=== PATIENT | female | born 1955 | race Caucasian/White ===

== ENCOUNTER 2021-04-27 19:17 | Emergency (ER) | payer OTHER ==
--- NOTE | 2021-04-27 21:17 | RAD REPORT ---
EXAM DESCRIPTION: CT - Head C Spine Mpr Wo Con - 04/27/2021 9:03 pm CLINICAL HISTORY: Head and neck injury status post fall. Head and neck pain COMPARISON: 2007 TECHNIQUE: Computed axial tomography of the head and cervical spine was obtained. Sagittal and coronal reconstruction was performed. All CT scans are performed using dose optimization technique as appropriate and may include automated exposure control or mA/KV adjustment according to patient size. FINDINGS: An intracranial bleed is not seen. A 3 centimeter low-density area right cerebellum. The ventricles are normal in caliber. An extra-axial fluid collection is not noted.Fluid within the v isualized sinuses and mastoids is not seen A cervical fracture is not visualized. No dislocation is noted. Spondylosis C5-6 C6-7 results in mode rate central spinal stenosis IMPRESSION: 3 centimeter low-density area within the right cerebellum may represent artifact or path ology such as infarction of indeterminate age. This should be correlated clinically. MRI of the brain may be helpful for further evaluation A cervical fracture is not visualized. Spondylosis involving the cervical spine resulting in moderate central spinal stenosis
--- NOTE | 2021-04-27 21:40 | RAD REPORT ---
EXAM DESCRIPTION: RAD - Forearm Left - 04/27/2021 9:31 pm CLINICAL HISTORY: Left forearm pain status post injury FINDINGS: No fracture is seen
--- NOTE | 2021-04-27 21:41 | RAD REPORT ---
EXAM DESCRIPTION: RAD - Shoulder Left 2 View - 04/27/2021 9:31 pm CLINICAL HISTORY: Left shoulder pain status post fall FINDINGS: No fracture or dislocation is seen. Osteoporosis
--- NOTE | 2021-04-27 21:41 | RAD REPORT ---
EXAM DESCRIPTION: RAD - Humerus Left - 04/27/2021 9:31 pm CLINICAL HISTORY: Left arm pain status post fall FINDINGS: No fracture is seen
--- NOTE | 2021-04-27 21:43 | RAD REPORT ---
EXAM DESCRIPTION: RAD -Hand Left 3 View - 04/27/2021 9:31 pm CLINICAL HISTORY: Left hand pain status post injury FINDINGS: No fracture or dislocation is seen.
--- NOTE | 2021-04-27 21:52 | RAD REPORT ---
EXAM DESCRIPTION: RAD - Pelvis - 04/27/2021 9:31 pm CLINICAL HISTORY: Pelvic pain status post injury FINDINGS: No fracture or dislocation is seen. Osteoporosis If the patient continues to have symptoms to suggest an occult fracture then MRI or CT would be recom mended
--- NOTE | 2021-04-27 21:53 | RAD REPORT ---
EXAM DESCRIPTION: RAD - Hip Left 2 View - 04/27/2021 9:31 pm CLINICAL HISTORY: Left hip pain status post injury FINDINGS: No fracture or dislocation seen. Osteoporosis If the patient continues to have symptoms to suggest an occult fracture then MRI or CT would be recom mended
--- NOTE | 2021-04-27 23:20 | ER ---
Nurse's Notes [facility] Name: Herminia Truong Age: 65 yrs Sex: Female : 1955 Arrival Date: 04/27/2021 Time: 19:21 Bed 18 Private MD: Diagnosis: Fall, Mechanical;Abrasions, Left Upper Extremity;Contusions Presentation: 04/27 20:01 Chief complaint: Patient states: Teeth extraction today, took hydrocodone when she got sj1 home and fell while walking the dog, reports hitting head, possible LOC, c/o headache, left hip, left leg, and left arm pain. Denies thinners. Care prior to arrival: None. Mechanism of Injury: Fall GLF. 20:01 Acuity: VELVET 2 sj1 20:01 Method Of Arrival: Wheelchair sj1 20:05 Coronavirus screen: Vaccine status: Patient reports receiving the 1st dose of the Covid sj1 vaccine. Ebola Screen: No symptoms or risks identified at this time. Initial Sepsis Screen: Does the patient meet any 2 criteria? No. Patient's initial sepsis screen is negative. Does the patient have a suspected source of infection? No. Patient's initial sepsis screen is negative. Risk Assessment: Do you want to hurt yourself or someone else? Patient reports no desire to harm self or others. Onset of symptoms was April 27, 2021 at 18:30. Triage Assessment: 20:05 General: Appears in no apparent distress. Behavior is calm, cooperative, appropriate sj1 for age. Pain: Complains of pain in LEFT ARM, HIP, LEG PAIN, AND HEADACHE. Historical: - Allergies: 20:06 Vancomycin; sj1 - PMHx: 20:06 Diabetes - IDDM; Hypertension; Hyperlipidemia; sj1 - Immunization history: Last tetanus immunization: unknown. - Social history:: Smoking status: Patient denies any tobacco usage or history of. Screenin:32 Abuse screen: Denies threats or abuse. Nutritional screening: No deficits noted. kc4 Tuberculosis screening: No symptoms or risk factors identified. Never had TB. Possible symptoms: None Risk factors: None. Fall Risk None identified. Fall in past 12 months (25 points). Secondary diagnosis (15 points) IV access (20 points). Ambulatory Aid- None/Bed Rest/Nurse Assist (0 pts). Gait- Impaired (20 pts.). Mental Status- Oriented to own ability (0 pts). Total Burdick Fall Scale indicates High Risk Score (45 or more points). Fall prevention measures have been instituted. Side Rails Up X 2. Primary Survey: 20:01 NO uncontrolled hemorrhage observed. A: The patient is alert. Airway: patent. sj1 Breathing/Chest: Respiratory pattern: regular. Circulation: Pulses:. Disability Alert. Exposure/Environment:. 23:43 Reassessment Breathing/Chest Respiratory pattern Regular Respiratory effort Spontaneous kc4 Breath sounds Clear Chest inspection Symmetrical. Assessment: 20:01 General: Appears in no apparent distress. Behavior is calm, cooperative, appropriate sj1 for age. Pain: Complains of pain in LEFT ARM, HIP, AND LEG. Neuro: Reports headache. 23:32 General: Appears in no apparent distress. Behavior is calm, cooperative, appropriate kc4 for age. Pain: Complains of pain in left Hip Pain does not radiate. Pain radiates to left hip Pain currently is 0 out of 10 on a pain scale. at worst was 8 out of 10 on a pain scale. level that patient reports is acceptable is 0 out of 10 on a pain scale. Quality of pain is described as burning, aching, pressure, Pain began suddenly, Is continuous, Alleviated by medications, rest, repositioning, cold application, relaxation, Aggravated by increased activity, repositioning, weight bearing, Noted to be quiet/stoic, Also complains of Current management. Neuro: No deficits noted. Reports headache numbness. Cardiovascular: No deficits noted. Respiratory: No deficits noted. GI: No deficits noted. : No deficits noted. EENT: No deficits noted. No signs and/or symptoms were reported regarding the EENT system. Derm: No signs and/or symptoms reported regarding the dermatologic system. Musculoskeletal: No deficits noted. Tenderness. Vital Signs: 20:04 BP 134 / 85; Pulse 104; Resp 19; Temp 98; Pulse Ox 100% ; Weight 69.85 kg (R); Height 5 sj1 ft. 1 in. (154.94 cm); Pain 9/10; 21:15 BP 128 / 80; Pulse 88; Resp 18; Temp 98.1; Pulse Ox 100% on R/A; Pain 8/10; kc4 23:32 BP 118 / 72; Pulse 80; Resp 18; Temp 98.8(O); Pulse Ox 99% on R/A; Pain 2/10; kc4 20:04 Body Mass Index 29.10 (69.85 kg, 154.94 cm) sj1 Dada Coma Score: 20:04 Eye Response: spontaneous(4). Verbal Response: oriented(5). Motor Response: obeys sj1 commands(6). Total: 15. 23:32 Eye Response: spontaneous(4). Verbal Response: oriented(5). Motor Response: obeys kc4 commands(6). Total: 15. Trauma Score (Adult): 20:04 Eye Response: spontaneous(1); Verbal Response: oriented(1); Motor Response: obeys sj1 commands(2); Systolic BP: > 89 mm Hg(4); Respiratory Rate: 10 to 29 per min(4); Dada Score: 15; Trauma Score: 12 ED Course: 19:21 Patient arrived in ED. ja2 20:03 Triage completed. sj1 20:25 Patricio Kaminski MD is Attending Physician. 7 20:49 Lacey Sands is Primary Nurse. kc4 21:03 CT Head C Spine In Process Unspecified. EDMS 21:31 Shoulder Left (2 View) XRAY In Process Unspecified. EDMS 21:31 Humerus Left XRAY In Process Unspecified. EDMS 21:31 Forearm Left XRAY In Process Unspecified. EDMS 21:31 Hand Left 3 View XRAY In Process Unspecified. EDMS 21:31 Hip Left 2 View XRAY In Process Unspecified. EDMS 21:31 Pelvis XRAY In Process Unspecified. EDMS 23:17 Andrea Causey MD is Referral Physician. [facility] 23:41 Arm band placed on right wrist. kc4 23:42 No provider procedures requiring assistance completed. Patient did not have IV access kc4 during this emergency room visit. 23:43 Patient has correct armband on for positive identification. Fall risk band placed. kc4 Placed in gown. Bed in low position. Call light in reach. Side rails up X 1. 23:44 Patient maintains SpO2 saturation greater than 95% on room air. 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 Exp: kc4 11/20/2022. Lot #: [id number]. } Route: IM; Site: left deltoid; Outcome: 23:19 Discharge ordered by . shanelle 23:42 Discharged to home via wheelchair, with family. 4 23:42 Condition: improved 23:42 Discharge instructions given to patient, family, Instructed on discharge instructions, follow up and referral plans. Demonstrated understanding of instructions, follow-up care, medications. 23:44 Patient's length of stay was not longer than 2 hours. kc4 23:54 Patient left the ED. em Signatures: Dispatcher [employer] Marko Moody, RN RN em Patricio Kaminski MD MD 7 Lacey Sands 4 Cortney Ferro Sade, RN RN sj1
--- NOTE | 2021-04-27 23:20 | EDPHYS ---
Physician Documentation [facility] Name: Herminia Truong Age: 65 yrs Sex: Female : 1955 Arrival Date: 04/27/2021 Time: 19:21 Bed 18 Private MD: ED Physician Patricio Kaminski HPI: 04/27 20:25 This 65 yrs old Female presents to ER via Wheelchair with complaints of Fall mh7 Injury. 20:25 Details of fall: The patient fell from an upright position, while walking. Onset: The mh7 symptoms/episode began/occurred just prior to arrival, today. Associated injuries: The patient sustained injury to the head, pain, tenderness, left arm, painful injury, Left hip, painful injury. Severity of symptoms: At their worst the symptoms were moderate, earlier today, in the emergency department the symptoms have improved, moderately. Patient states that she was walking her dog when she got pulled by the dog and tripped and fell. She complains of head pain, left shoulder pain, left arm pain, left hip pain. States that she felt dazed after hitting her head but does not believe she had LOC. She denies any other symptoms or complaints.. Historical: - Allergies: 20:06 Vancomycin; sj1 - PMHx: 20:06 Diabetes - IDDM; Hypertension; Hyperlipidemia; sj1 - Immunization history: Last tetanus immunization: unknown. - Social history:: Smoking status: Patient denies any tobacco usage or history of. ROS: 20:25 Constitutional: Negative for fever, chills, and weight loss, Eyes: Negative for injury, mh7 pain, redness, and discharge, ENT: Negative for injury, pain, and discharge, Neck: Negative for injury, pain, and swelling, Cardiovascular: Negative for chest pain, palpitations, and edema, Respiratory: Negative for shortness of breath, cough, wheezing, and pleuritic chest pain, Abdomen/GI: Negative for abdominal pain, nausea, vomiting, diarrhea, and constipation, Back: Negative for injury and pain, : Negative for injury, bleeding, discharge, and swelling. 20:25 Psych: Negative for depression, anxiety, suicide ideation, homicidal ideation, and hallucinations, Allergy/Immunology: Negative for hives, rash, and allergies, Endocrine: Negative for neck swelling, polydipsia, polyuria, polyphagia, and marked weight changes, Hematologic/Lymphatic: Negative for swollen nodes, abnormal bleeding, and unusual bruising. 20:25 Neuro: Negative for altered mental status, dizziness, gait disturbance, hearing loss, loss of consciousness, numbness, seizure activity, speech changes, syncope, near syncope, tingling, tinnitus, tremor, visual changes, weakness. Exam: 20:25 Constitutional: This is a well developed, well nourished patient who is awake, alert, mh7 and in no acute distress. 20:25 Eyes: Pupils equal round and reactive to light, extra-ocular motions intact. Lids and lashes normal. Conjunctiva and sclera are non-icteric and not injected. Cornea within normal limits. Periorbital areas with no swelling, redness, or edema. ENT: Nares patent. No nasal discharge, no septal abnormalities noted. Tympanic membranes are normal and external auditory canals are clear. Oropharynx with no redness, swelling, or masses, exudates, or evidence of obstruction, uvula midline. Mucous membranes moist. Neck: Trachea midline, no thyromegaly or masses palpated, and no cervical lymphadenopathy. Supple, full range of motion without nuchal rigidity, or vertebral point tenderness. No Meningismus. Chest/axilla: Normal chest wall appearance and motion. Nontender with no deformity. No lesions are appreciated. Cardiovascular: Regular rate and rhythm with a normal S1 and S2. No gallops, murmurs, or rubs. Normal PMI, no JVD. No pulse deficits. Respiratory: Lungs have equal breath sounds bilaterally, clear to auscultation and percussion. No rales, rhonchi or wheezes noted. No increased work of breathing, no retractions or nasal flaring. Abdomen/GI: Soft, non-tender, with normal bowel sounds. No distension or tympany. No guarding or rebound. No evidence of tenderness throughout. Back: No spinal tenderness. No costovertebral tenderness. Full range of motion. 20:25 Neuro: Awake and alert, GCS 15, oriented to person, place, time, and situation. Cranial nerves II-XII grossly intact. Motor strength 5/5 in all extremities. Sensory grossly intact. Cerebellar exam normal. Normal gait. Psych: Awake, alert, with orientation to person, place and time. Behavior, mood, and affect are within normal limits. 20:25 Head/face: Noted is tenderness, that is moderate, of the Left scalp. 20:25 Musculoskeletal/extremity: Extremities: noted in the Left shoulder, left arm, left forearm, left hand: pain, tenderness, noted in the Left hip: pain, tenderness, ROM: limited active range of motion due to pain, in the left arm and left hip, limited passive range of motion due to pain, in the left arm and left hip, Circulation is intact in all extremities. Sensation intact. Compartment Syndrome exam of affected extremity: is normal. no numbness, no tingling, no sensation deficit, no palor, no weak pulses, Joints: the left shoulder and left knee displays painful range of motion, tenderness, Weight bearing: able to fully bear weight, Tendon exam: specific tendon testing normal through active and passive range of motion 20:25 Skin: injury, abrasion(s), small abrasion noted, of the left arm. Vital Signs: 20:04 BP 134 / 85; Pulse 104; Resp 19; Temp 98; Pulse Ox 100% ; Weight 69.85 kg (R); Height 5 sj1 ft. 1 in. (154.94 cm); Pain 9/10; 21:15 BP 128 / 80; Pulse 88; Resp 18; Temp 98.1; Pulse Ox 100% on R/A; Pain 8/10; kc4 23:32 BP 118 / 72; Pulse 80; Resp 18; Temp 98.8(O); Pulse Ox 99% on R/A; Pain 2/10; kc4 20:04 Body Mass Index 29.10 (69.85 kg, 154.94 cm) sj1 Curlew Coma Score: 20:04 Eye Response: spontaneous(4). Verbal Response: oriented(5). Motor Response: obeys sj1 commands(6). Total: 15. 23:32 Eye Response: spontaneous(4). Verbal Response: oriented(5). Motor Response: obeys kc4 commands(6). Total: 15. Trauma Score (Adult): 20:04 Eye Response: spontaneous(1); Verbal Response: oriented(1); Motor Response: obeys sj1 commands(2); Systolic BP: > 89 mm Hg(4); Respiratory Rate: 10 to 29 per min(4); Dada Score: 15; Trauma Score: 12 MDM: 23:13 Differential diagnosis: abrasion, closed head injury, contusion, fracture. Data 7 reviewed: vital signs, nurses notes, radiologic studies, CT scan, plain films. Data interpreted: Pulse oximetry: on room air is 100 %. Interpretation: normal. Counseling: I had a detailed discussion with the patient and/or guardian regarding: the historical points, exam findings, and any diagnostic results supporting the discharge/admit diagnosis, lab results, radiology results, to return to the emergency department if symptoms worsen or persist or if there are any questions or concerns that arise at home. Response to treatment: the patient's symptoms have markedly improved after treatment. ED course: Well-appearing, no acute distress, vital signs stable, no focal neurological deficits. Patient is ambulating without any difficulty or complaints of pain. Discussed test results including 3 cm low-density area seen in the right cerebellum. Offered further studies including possible MRI. Patient denies any stroke symptoms now or in the past and declined test. She will follow up with her primary doctor about this finding. She was informed that she may return to the ED for any concerns.. 23:19 Patient medically screened. 7 04/27 20:41 Order name: CT Head C Spine; Complete Time: 22:35 7 04/27 20:41 Order name: Shoulder Left (2 View) XRAY; Complete Time: 22:35 7 04/27 20:41 Order name: Humerus Left XRAY; Complete Time: 22:35 7 04/27 20:41 Order name: Forearm Left XRAY; Complete Time: 22:35 7 04/27 20:41 Order name: Hand Left 3 View XRAY; Complete Time: 22:35 7 04/27 20:41 Order name: Hip Left 2 View XRAY; Complete Time: 22:35 7 04/27 20:41 Order name: Pelvis XRAY; Complete Time: 22:35 mh7 Administered Medications: 23:20 Drug: Tetanus-Diphtheria Toxoid Adult 0.5 ml {Ins[employer]: [employer]. Exp: kc4 11/20/2022. Lot #: [id number]. } Route: IM; Site: left deltoid; Disposition Summary: 04/27/21 23:19 Discharge Ordered Location: Home [facility] Problem: [facility] Symptoms: have improved [facility] Condition: Stable [facility] Diagnosis - Fall, Mechanical 7 - Abrasions, Left Upper Extremity mh7 - Contusions [facility] Followup: 7 - With: Private Physician - When: 1 - 2 days - Reason: Worsening of condition, Further diagnostic work-up, Recheck today's complaints, Continuance of care, Re-evaluation by your physician Followup: [facility] - With: Andrea Causey MD - When: As needed - Reason: Further diagnostic work-up Discharge Instructions: - Discharge Summary Sheet [facility] - Musculoskeletal Pain 7 - Contusion, [id number] [facility] - Fall Prevention in the Home, Adult, [id number] 7 - Facial or Scalp Contusion, [id number] [facility] Forms: - Medication Reconciliation Form [facility] - Thank You Letter [facility] - Antibiotic Education [facility] - Prescription Opioid Use [facility] Signatures: Dispatcher [employer] Patricio Dubois MD MD 7 Lacey Sands kc4 Lakshmi Banuelos RN RN sj1 Corrections: (The following items were deleted from the chart) 20:55 20:42 Wrist Left 3 View+RAD.RAD.BRZ ordered. EDMS MAE
[2021-04-27] MEDS ORDERED: TETANUS & DIPHTHERIA TOX,ADULT 0.5 ML VIAL ONE (23:44)
[2021-04-28 00:21] VITALS: BP 118/72; TEMP 98.8; O2SAT 99
== END 2021-04-27 23:54 | disposition home or self-care (01) ==
LOC: ER 19:17
DX: S40.812A Abrasion of left upper arm, initial encounter (principal); W01.0XXA Fall on same level from slipping, tripping and stumbling without subsequent striking against object, initial encounter; Y93.K1 Activity, walking an animal; I10 Essential (primary) hypertension; E11.9 Type 2 diabetes mellitus without complications; Z23 Encounter for immunization; Z88.3 Allergy status to other anti-infective agents
CPT/HCPCS: 70450; 72125; 72170; 90471; 90714; 99284

== ENCOUNTER 2021-06-14 15:53 | Emergency (ER) | payer OTHER ==
--- OUTSIDE RECORDS SUMMARY | 2021-06-14 15:57 | XMS REPORT | Continuity of Care Document ---
:1955 Author Organization [facility] t Address [address] [place] [address] Care Team Providers Name Role Phone Edith GREWAL Primary Care Physician Unavailable LILLIE COCHRAN Attending Clinician Unavailable Vitor STEWART, Gene Attending Clinician Sony STEWART Attending Clinician Doctor Unassigned, Name Attending Clinician Unavailable Eliseo STEWART, Kiana Attending Clinician Payers Payer Name Policy Type Policy Number Effective Date Expiration Date S lucy MEDICARE PART A [id number] 2009 \\T\\ B 00:00:00 DIONICIO [id number] 2021 00:00:00 Problems Condition Condition Condition Status Onset Resolution Last Treating Co mments Source Name Details Category Date Date Treatment Clinician Date Dietary Dietary Disease Active Univers B12 B12 9-13 [place] Mixed Mixed Disease Active Univers hyperlipid hyperlipid 6-05 it y of emia emia 00:00: [place] 00 Medical Branch 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 1-19 ity of mellitus mellitus 00:00: [place] with with 00 Medical diabetic diabetic Branch polyneurop polyneurop athy athy Depression Depression Disease Active 2014-07 U nivers 0-12 ity of 00:00: [place] 00 Medical Branch Sinusitis Sinusitis Disease Active Uni vers 7-16 ity of 00:00: [place] 00 Medical Branch Diabetic Diabetic Disease Active Unive rs arthropath arthropath 3-15 it y of y y 00:00: [place] 00 Medical Branch Adhesive Adhesive Disease Active Unive rs capsulitis capsulitis 3-15 it y of of of 00:00: [place] shoulder shoulder 00 Medica l Branch Osteoarthr Osteoarthr Disease Active U nivers itis, itis, 3-15 ity of multiple multiple 00:00: [place] sites sites 00 Medical Branch Chronic Chronic Disease Active Univers pain pain 3-15 ity of syndrome syndrome 00:00: [place] 00 Medical Branch Arthritis Arthritis Disease Active Uni vers 1-15 ity of 00:00: [place] 00 Medical Branch Allergic Allergic Disease Active Unive rs rhinitis rhinitis 1-15 ity of 00:00: [place] 00 Medical Branch Essential Essential Disease Active Uni vers hypertensi hypertensi 3-28 it y of on, benign on, benign [place] Vitamin D Vitamin D Disease Active Overview: Univers deficiency deficiency 3-28 Formattin ity of 00:00: g of this 00 note Medical might be Branch different from the original. 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 Univers in ty to See comments 2-30 ity of adverse 00:00: [place] reaction 00 Medical s Branch Social History Social Habit Start Date Stop Date Quantity Comments Source Sex Assigned At [facility] of Medicine History [facility] o f Alcohol Frequency [facility] edical Branch History [facility] o f Alcohol Std Drinks [place] [facility] History [facility] o f Alcohol Binge [place] Medic al Branch Exposure to Not sure University of SARS-CoV-2 (event) [place] [facility] [place] Alcohol intake 2021-05-25 2021-05-25 Current drinker Unive rsity of 00:00:00 00:00:00 of alcohol [place] Medical (finding) Branch Alcohol Comment 2012-09-21 2012-09-21 occasional Universit y of 00:00:00 00:00:00 [facility] Cigarettes smoked 2012-07-24 2012-07-24 Univers ity of current (pack per 00:00:00 00:00:00 [facility] ) - Reported Branch Tobacco use and 2012-07-24 2012-07-24 Never used Universit y of exposure 00:00:00 00:00:00 [facility] History of tobacco 2005-07-10 Current smoker [facility] of use 00:00:00 Medicine Smoking Status Start Date Stop Date Source Former smoker 2020-01-29 00:00:00 2020-01-29 00:00:00 [facility] Medications Ordered Filled Start Stop Current Ordering Indication Dosage Frequency Signature Comments Components Source Medication Medication Date Date Medication? Clinician (SIG) Name Name Dexlansopra 2020-07 Yes Take by Un nico zole -02 mouth. ity of (DEXILANT) 13:56: [place] 60 mg 05 Medical capsule Branch VITAMIN C 2020-07 Yes 1 daily Unive rs 500 MG ORAL - ity of TAB 13:56: [address] MULTI-VITAM 2020-07 Yes 1 daily Uni vers IN ORAL 07-11 ity of 13:56: [address] ASPIRIN 81 2020-07 Yes once daily U nivers MG ORAL 02 ity of CHEW 13:56: [address] cholecalcif 2020-07 Yes 1000U Take 1,000 Univers christina, 1-02 Units by ity of vitamin D3, 13:56: mouth [place] (VITAMIN 05 daily. Medical D3) 1,000 Branch unit tablet CYANOCOBALA 2020-07 Yes Take by Un nico MIN, 1-02 mouth ity of VITAMIN 13:56: daily. [place] B-12, 05 Medical (VITAMIN Branch B-12 ORAL) Dexlansopra 2020-07 Yes Take by Un nico zole 1-02 mouth. ity of (DEXILANT) 13:56: [place] 60 mg 05 Medical capsule Branch VITAMIN C 2020-07 Yes 1 daily Unive rs 500 MG ORAL 1-02 ity of TAB 13:56: [address] MULTI-VITAM 2020-07 Yes 1 daily Uni vers IN ORAL -02 ity of 13:56: [place] [address] Medical Branch ASPIRIN 81 2020-07 Yes once daily U nivers MG ORAL 07-11 ity of CHEW 13:56: [address] Branch cholecalcif 2020-07 Yes 1000U Take 1,000 Univers christina, 02 Units by ity of vitamin D3, 13:56: mouth [place] (VITAMIN 05 daily. Medical D3) 1,000 Branch unit tablet CYANOCOBALA 2020-07 Yes Take by Un nico MIN, 02 mouth ity of VITAMIN 13:56: daily. [place] B-12, 05 Medical (VITAMIN Branch B-12 ORAL) methocarbam 2020-07 Yes [id number] 500mg Take 1 Univers oL 1-02 tablet by ity of (ROBAXIN) 00:00: mouth 2 [place] 500 mg 00 (two) Medical tablet times Branch daily. methocarbam 2020-07 Yes [id number] 500mg Take 1 Univers oL 1-02 tablet by ity of (ROBAXIN) 00:00: mouth 2 [place] 500 mg 00 (two) Medical tablet times Branch daily. insulin Yes [id number] inject Univ ers lispro 9-13 under the ity of (HUMALOG 00:00: skin 3 [place] KWIKPEN 00 (three) Medical INSULIN) times Branch 100 unit/mL daily pen before injector meals, est 40 units/day. glucagon Yes [id number] 1mg inject 1 Univers mg/0.2 mL 9-13 mg under ity of AtIn 00:00: the skin [place] 00 as needed Medical for Other. Branch insulin Yes [id number] inject Univ ers lispro 9-13 under the ity of (HUMALOG 00:00: skin 3 [place] KWIKPEN 00 (three) Medical INSULIN) times Branch 100 unit/mL daily pen before injector meals, est 40 units/day. glucagon 1 Yes [id number] 1mg inject 1 Univers mg/0.2 mL 9-13 mg under ity of AtIn 00:00: the skin [place] 00 as needed Medical for Other. Branch DICLOFENAC Yes [id number] APPLY ONE Univers EPOLAMINE 8-31 PATCH TO ity of 1.3 % patch 00:00[place] 00 AREA TWICE Medical A DAY Branch NEEDED FOR PAIN (SCALE 1-3) OR PAIN (SCALE 4-6) (DO NOT APPLY TO DAMAGED SKIN, DO NOT WEAR WHILE BATHING OR SHOWERING, WASH HANDS AFTER HANDLING) DICLOFENAC Yes [id number] APPLY GEL Univers SODIUM 1 % 8-31 TO ity of gel 00:00: AFFECT[place] 00 AREA(S) Medical EVERY 6 Branch HOURS NEEDED FOR PAIN (SCALE 4-6) OR PAIN (SCALE 7-10) -(USE THE ENCLOSED DOSING CARD AND PATIENT INSTRUCTIO N SHEET FOR PROPER DOSING GUIDANCE OR DIRECTED BY YOUR DOCTOR. TOTAL AMOUNT USED EACH DAY SHOULD NOT EXCEED 32 GRAMS) DICLOFENAC Yes [id number] APPLY ONE Univers EPOLAMINE 8-31 PATCH TO ity of 1.3 % patch 00:00: [place] AREA TWICE Medical A DAY Branch NEEDED FOR PAIN (SCALE 1-3) OR PAIN (SCALE 4-6) (DO NOT APPLY TO DAMAGED SKIN, DO NOT WEAR WHILE BATHING OR SHOWERING, WASH HANDS AFTER HANDLING) DICLOFENAC Yes [id number] APPLY GEL Univers SODIUM 1 % 8-31 TO ity of gel 00:00: AFFECTED 00 AREA(S) Medical EVERY 6 Branch HOURS NEEDED FOR PAIN (SCALE 4-6) OR PAIN (SCALE 7-10) -(USE THE ENCLOSED DOSING CARD AND PATIENT INSTRUCTIO N SHEET FOR PROPER DOSING GUIDANCE OR DIRECTED BY YOUR DOCTOR. TOTAL AMOUNT USED EACH DAY SHOULD NOT EXCEED 32 GRAMS) traMADoL 50 Yes [id number] 50mg Take 1 Univ ers mg tablet 8-11 tablet by ity o f 00:00: mouth (three) Medical times Branch daily. Indication s: chronic pain traMADoL 50 Yes [id number] 50mg Take 1 Univ ers mg tablet 8-11 tablet by ity o f 00:00: mouth (three) Medical times Branch daily. Indication s: chronic pain diltiazem Yes [id number] 120mg Take 1 Un nico 120 mg 7-09 tablet by ity of tablet 00:00: mouth 3 (three) Medical times Branch daily. aliskiren Yes [id number] 150mg Take 1 Un nico (TEKTURNA) 7-09 tablet by ity of 150 mg 00:00: mouth [place] tablet 00 daily. Medical Branch Insulin Yes [id number] 4 (four) Un nico Ray, 7-09 times ity of Disposable, 00:00: [place]. [place] ([place] 00 Medical ULTRAFINE Branch III MINI PEN) 31 gauge x 3/16" Ndle diltiazem Yes [id number] 120mg Take 1 Un nico 120 mg 7-09 tablet by ity of tablet 00:00: mouth 3 [place] 00 (three) Medical times Branch daily. aliskiren Yes [id number] 150mg Take 1 Un nico (TEKTURNA) 7-09 tablet by ity of 150 mg 00:00: mouth [place] tablet 00 daily. Medical Branch Insulin Yes [id number] 4 (four) Un nico Ray, 7-09 times ity of Disposable, 00:00: [place]. [place] (BD 00 Medical ULTRAFINE Branch III MINI PEN) 31 gauge x 3/16" Ndle insulin Yes [id number] 26U inject 26 U nivers degludec 1-08 Units ity of (TRESIBA 00:00: under the [facility] FLEXTOUCH 00 skin Medical U-100) 100 daily. At Bran ch unit/mL (3 7 AM mL) InPn atorvastati Yes [id number] 40mg Take 1 Univers n 40 mg 1-08 tablet by ity of tablet 00:00: mouth at [place] 00 bedtime. Medical Branch hydroCHLORO 0 Yes [id number] 25mg Take 1 U nivers thiazide 25 1-08 tablet by ity of mg tablet 00:00: mouth [place] 00 daily. Medical Branch SERTraline 0 Yes [id number] 100mg Take 1 Univers 100 mg 1-08 tablet by ity of tablet 00:00: mouth [place] 00 daily. Medical Branch insulin 0 Yes [id number] 26U inject 26 U nivers degludec 1-08 Units ity of (TRESIBA 00:00: [place] the [place] FLEXTOUCH 00 skin Medical U-100) 100 daily. At Bran ch unit/mL (3 7 AM mL) InPn atorvastati Yes [id number] 40mg Take 1 Univers n 40 mg 1-08 tablet by ity of tablet 00:00: mouth at [place] 00 bedtime. Medical Branch hydroCHLORO 2021-0 Yes [id number] 25mg Take 1 U nivers thiazide 25 1-08 tablet by ity of mg tablet 00:00: mouth [place] 00 daily. Medical Branch SERTraline 0 Yes [id number] 100mg Take 1 Univers 100 mg 1-08 tablet by ity of tablet 00:00: mouth [place] 00 daily. Medical Branch methocarbam 2019-0 Yes [id number] 500mg Take 1 Univers ol 6-15 tablet by ity of (ROBAXIN) 00:00: mouth 2 [place] 500 mg 00 (two) Medical tablet times Branch daily as needed for Pain (scale 4-6) or Pain (scale 7-10). methocarbam Yes [id number] 500mg Take 1 Univers ol 6-15 tablet by ity of (ROBAXIN) 00:00: mouth 2 [place] 500 mg 00 (two) Medical tablet times Branch daily as needed for Pain (scale 4-6) or Pain (scale 7-10). HYDROcodone Yes 1{tbl} Take 1 Univers -acetaminop 3-11 tablet by ity of hen (NORCO) 00:00: mouth 2 [place] as 5-325 mg 00 (two) Medical tablet times Branch daily. HYDROcodone Yes 1{tbl} Take 1 Univers -acetaminop 3-11 tablet by ity of hen (NORCO) 00:00: mouth 2 [place] as 5-325 mg 00 (two) Medical tablet times Branch daily. Multiple 2018-07 Yes Take by [facility] Vitamins-Mi 2-16 mouth. Colleg e nerals 15:50: of (WOMENS 50+ 00 Medicin MULTI e VITAMIN/MIN OR) Ascorbic 2018-07 Yes Take by [facility] Acid 2-16 mouth. [place] (VITAMIN C) 15:50: of 500 MG CAPS 00 Medicin e Dexlansopra 2018-07 Yes Take by Ever quigley zole 60 MG 2-16 mouth. [place] CPDR 15:50: of 00 Medicin e Cyanocobala 2018-07 Yes Take by Ever ylor min 2-16 mouth. [place] (VITAMIN 15:50: of B-12) 1000 00 Medicin MCG TABS e Multiple 2018-07 Yes Take by [facility]-Mi 2-16 mouth. Colleg e nerals 15:50: of (WOMENS 50+ 00 Medicin MULTI e VITAMIN/MIN OR) Ascorbic 2018-07 Yes Take by [facility] Acid 2-16 mouth. [place] (VITAMIN C) 15:50: of 500 MG CAPS 00 Medicin e Dexlansopra 2018-07 Yes Take by Ever quigley zole 60 MG 2-16 mouth. [place] CPDR 15:50: of 00 Medicin e Cyanocobala 2018-07 Yes Take by Ever ylvaughn min 2-16 mouth. [place] (VITAMIN 15:50: of B-12) 1000 00 Medicin MCG TABS e Insulin 2018-07 Yes 26U Inject 26 [facility] Degludec 2-02 Units into Colle ge 100 UNIT/ML 00:00: the skin. o f SOPN 00 Medicin e Insulin 2018-07 Yes 26U Inject 26 [facility] Degludec 2-02 Units into Colle ge 100 UNIT/ML 00:00: the skin. o f SOPN 00 Medicin e Insulin Yes inject [facility] Lispro, 1 5-20 under the Colle ge Unit Dial, 00:00: skin 3 of (HUMALOG 00 (three) Medicin KWIKPEN) times e 100 UNIT/ML daily SOPN before meals, est 35 units/day. Insulin Yes inject [facility] Lispro, 1 5-20 under the Colle ge Unit Dial, 00:00: skin 3 of (HUMALOG 00 (three) Medicin KWIKPEN) times e 100 UNIT/ML daily SOPN before meals, est 35 units/day. Diclofenac Yes Place [facility] Epolamine 2-11 onto the Colleg e 1.3 % PTCH 00:00: skin. of Medicin e Diclofenac Yes Apply [facility] Sodium 1 % 2-11 topically. Col lege GEL 00:00: of 00 Medicin e Diclofenac Yes Place [facility] Epolamine 2-11 onto the Colleg e 1.3 % PTCH 00:00: skin. of 00 Medicin e Diclofenac Yes Apply [facility] Sodium 1 % 2-11 topically. Col lege GEL 00:00: of 00 Medicin e codeine-gua Yes [id number] 5mL Take 5 mL Univers ifenesin 2-04 by mouth ity of (CHERATUSSI 00:00: every 6 [place] as N AC) 00 (six) Medical 10-100 mg/5 hours as Bran ch mL solution needed for Cough. codeine-gua 2019- Yes [id number] 5mL Take 5 mL Univers ifenesin 2-04 by mouth ity of (CHERATUSSI 00:00: every 6 [place] as N AC) 00 (six) Medical 10-100 mg/5 hours as Bran ch mL solution needed for Cough. Aliskiren Yes 150mg Take 150 [facility] Fumarate 2-04 mg by College 150 MG TABS 00:00: mouth. of Medicin e Glucagon, Yes Inject as [facility] rDNA, 2-04 directed College (GLUCAGON 00:00: to correct of EMERGENCY) 00 hypoglycem Med icin 1 MG KIT ia. e guaiFENesin Yes 5mL Take 5 mL [facility] -Codeine 2-04 by mouth. Colleg e 100-10 00:00: of MG/5ML SOLN Medicin e Aliski[place] Yes 150mg Take 150 [facility] Fumarate 2-04 mg by College 150 MG TABS 00:00: mouth. of Medicin e Glucagon, Yes Inject as [facility] rDNA, 2-04 directed [place] (GLUCAGON 00:00: to correct of EMERGENCY) 00 hypoglycem Med icin 1 MG KIT ia. e guaiFENesin Yes 5mL Take 5 mL [facility] -Codeine 2-04 by mouth. Colleg e 100-10 00:00: of MG/5ML SOLN 00 Medicin e Glucose Yes Use 6 per [facility] Blood 2- day to College Strips 00:00: check of (FREESTYLE 00 blood Medicin TEST glucose. e STRIPS) Glucose Yes Use 6 per [facility] Blood 2-19 day to College Strips 00:00: check of (FREESTYLE 00 blood Medicin TEST glucose. e STRIPS) hydrochloro Yes 25mg Take 25 mg [facility] thiazide 2-11 by mouth. [place] (HYDRODIURI 00:00: of L) 25 MG 00 Medicin tablet e Cholecalcif Yes 5000U 5,000 [facility] christina 50 MCG 2-11 Units. [place] (1999 [place]) 00:00: of CAPS 00 Medicin e hydrochloro 2017- Yes 25mg Take 25 mg [facility] thiazide 2-11 by mouth. [place] [facility] (HYDRODIURI 00:00: of L) 25 MG 00 Medicin tablet e Cholecalcif Yes 5000U 5,000 [facility] christina 50 MCG 2-11 Units. Colleg e (1999 [place]) 00:00: of CAPS 00 Medicin e aspirin EC 2014-07 Yes Take by [facility] 81 MG 0-23 mouth. College tablet 00:00: of 00 Medicin e atorvastati 2014-07 Yes 40mg Take 40 mg [facility] n (LIPITOR) 0-23 by mouth. Col lege 40 MG 00:00: of tablet 00 Medicin e sertraline 2014-07 Yes 100mg Take 100 [facility] (ZOLOFT) 0-23 mg by College 100 MG 00:00: mouth. of tablet 00 Medicin e aspirin EC 2014-07 Yes Take by [facility] 81 MG 0-23 mouth. College tablet 00:00: of 00 Medicin e atorvastati 2014-07 Yes 40mg Take 40 mg [facility] n (LIPITOR) 0-23 by mouth. Col lege 40 MG 00:00: of tablet 00 Medicin e sertraline 2014-07 Yes 100mg Take 100 [facility] (ZOLOFT) 0-23 mg by [place] 100 MG 00:00: mouth. of tablet 00 Medicin e acetone, Yes [id number] Use as Uni vers urine, test 7 directed ity of (KETONE 00:00: as needed [place] URINE TEST) 00 to check Medi arlyn strip for Branch ketones acetone, Yes [id number] Use as Uni vers urine, test 7 directed ity of (KETONE 00:00: as needed [place] URINE TEST) 00 to check Medi arlyn strip for Branch ketones Acetone, Yes Use as [facility] Urine, Test 7 directed Rhonda ege (RELION 00:00: as needed of KETONE) 00 to check Medicin STRP for e ketones Acetone, Yes Use as [facility] Urine, Test 7 directed Rhonda ege (RELION 00:00: as needed of KETONE) 00 to check Medicin STRP for e ketones Immunizations Ordered Filled Immunization Date Status Comments [facility] e Immunization Name Name Influenza Virus 2016-06-06 Completed Universit y of Vaccine Quad IM 3+ 00:00:00 [facility] Influenza Virus 2016-06-06 Completed Universit y of Vaccine Quad IM 3+ 00:00:00 [facility] Influenza Virus 2013-04-25 Completed Universit y of Vaccine (3+ yrs) 00:00:00 [facility] Influenza Virus 2013-04-25 Completed Universit y of Vaccine (3+ yrs) 00:00:00 [facility] Influenza Virus 2012-07-24 Completed Universit y of Vaccine 00:00:00 [facility] Influenza Virus 2012-07-24 Completed Universit y of Vaccine 00:00:00 [facility] Vital Signs Vital Name Observation Time Observation Value Comments Source Systolic blood 2021-05-25 19:15:00 128 mm[Hg] Univer sity of pressure [facility] Diastolic blood 2021-05-25 19:15:00 63 mm[Hg] Unive rsity of pressure [facility] Heart rate 2021-05-25 19:15:00 105 /min Universi ty [facility] Body height 2021-05-25 19:15:00 154.9 cm Universi ty [facility] Body weight 2021-05-25 19:15:00 74.39 kg Universi ty [facility] BMI 2021-05-25 19:15:00 30.99 kg/m2 Universi ty [facility] Systolic blood 2020-01-29 18:45:00 122 mm[Hg] [facility] Diastolic blood 2020-01-29 18:45:00 71 mm[Hg] [place] Heart rate 2020-01-29 18:45:00 89 /min [facility] Body temperature 2020-01-29 18:45:00 37 Jeny [facility] Body height 2020-01-29 18:45:00 154.9 cm [facility] Body weight 2020-01-29 18:45:00 73.483 kg [facility] BMI 2020-01-29 18:45:00 30.61 kg/m2 [facility] Systolic blood 2020-01-29 18:45:00 122 mm[Hg] [facility] Medicine Diastolic blood 2020-01-29 18:45:00 71 mm[Hg] [facility] Medicine Heart rate 2020-01-29 18:45:00 89 /min [facility] ol[facility] of Medicine Body temperature 2020-01-29 18:45:00 37 Jeny [facility] Body height 2020-01-29 18:45:00 154.9 cm [facility] Body weight 2020-01-29 18:45:00 73.483 kg [facility] BMI 2020-01-29 18:45:00 30.61 kg/m2 [facility] Systolic blood 2019-08-05 16:14:00 119 mm[Hg] [facility] of pressure Medicine Diastolic blood 2019-08-05 16:14:00 70 mm[Hg] [facility] Medicine Heart rate 2019-08-05 16:14:00 78 /min [facility] Body temperature 2019-08-05 16:14:00 36.61 Jeny [facility] Body height 2019-08-05 16:14:00 154.9 cm [facility] Body weight 2019-08-05 16:14:00 74.39 kg [facility] of Medicine BMI 2019-08-05 16:14:00 30.99 [facility] Systolic blood 2019-08-05 16:14:00 119 mm[Hg] [facility] pressure Medicine Diastolic blood 2019-08-05 16:14:00 70 mm[Hg] [facility] Medicine Heart rate 2019-08-05 16:14:00 78 /min [facility] Body temperature 2019-08-05 16:14:00 36.61 Jeny [facility] Body height 2019-08-05 16:14:00 154.9 cm [facility] Body weight 2019-08-05 16:14:00 [facility].39 [facility] BMI 2019-08-05 16:14:00 30.99 kg/m2 [facility] Procedures This patient has no known procedures. Plan of Care Planned Activity Planned Date Details Comments Source Future Scheduled PROTIME & PTT [code = Ordered: [facility] Test NOCPT] 01/29/2020 of Medicine Future Scheduled COLON CANCER [facility] ege Test SCREENING: COLONOSCOPY of Me jett [code = COLON CANCER SCREENING: COLONOSCOPY] Future Scheduled MAMMOGRAM ANNUAL [code [facility] [employer] [employer] Test = MAMMOGRAM ANNUAL] of Medic ine Future Scheduled TETANUS SHOT (ADULT) [facility] [employer] Test [code = TETANUS SHOT of Medi cine (ADULT)] Future Scheduled Diabetic foot [facility] Col lege Test examination of Medicine (regime/therapy) [code = [id number]] Future Scheduled ANNUAL DIABETIC [facility] C [facility]lege Test RETINOPATHY SCREENING of Med icine [code = ANNUAL DIABETIC RETINOPATHY SCREENING] Future Scheduled BMI FOLLOW UP PLAN [facility] [employer] Test [code = BMI FOLLOW UP of Med icine PLAN] Future Scheduled HEPATITIS C SCREENING [employer] [facility] [employer] Test [code = HEPATITIS C of Medic ine SCREENING] Future Scheduled MEDICARE AWV (Initial) [facility] [employer] [employer] Test [code = MEDICARE AWV of Medi cine (Initial)] Future Scheduled FALL SCREEN [code = [facility] Test FALL SCREEN] of Medicine Future Scheduled OSTEOPOROSIS SCREENING [employer] Test [code = OSTEOPOROSIS of Medi cine SCREENING] Future Scheduled PNEUMOVAX >=65 [facility] Co [facility] Test (PPSV23) [code = of Medicine PNEUMOVAX >=65 (PPSV23)] Future Scheduled FLU VACCINE > 6 MONTHS [employer] Test [code = FLU VACCINE > of Med icine 6 MONTHS] Future Scheduled COLON CANCER [facility] Rhonda ege Test SCREENING: COLONOSCOPY of Me jett [code = COLON CANCER SCREENING: COLONOSCOPY] Future Scheduled MAMMOGRAM ANNUAL [code [employer] Test = MAMMOGRAM ANNUAL] of Medic ine Future Scheduled TETANUS SHOT (ADULT) [facility] [employer] Test [code = TETANUS SHOT of Medi cine (ADULT)] Future Scheduled BMI FOLLOW UP PLAN [employer] Test [code = BMI FOLLOW UP of Med icine PLAN] Future Scheduled HEPATITIS C SCREENING [employer] Test [code = HEPATITIS C of Medic ine SCREENING] Future Scheduled MEDICARE AWV (Initial) [employer] Test [code = MEDICARE AWV of Medi cine (Initial)] Future Scheduled FALL SCREEN [code = [facility] [employer] Test FALL SCREEN] of Medicine Future Scheduled OSTEOPOROSIS SCREENING [employer] Test [code = OSTEOPOROSIS of Medi cine SCREENING] Future Scheduled PNEUMOVAX >=65 [facility] Test (PPSV23) [code = of Medicine PNEUMOVAX >=65 (PPSV23)] Future Scheduled PREVNAR >= 65 (PCV13) [employer] Test [code = PREVNAR >= 65 of Med icine (PCV13)] Future Scheduled FLU VACCINE > 6 MONTHS [facility] Test [code = FLU VACCINE > of Med icine 6 MONTHS] Future Scheduled CBC W/AUTO DIFF WITH Ordered: [facility] Test PLATELETS [code = 01/29/2020 of Medicin e 38666-6] Future Scheduled COMPREHENSIVE Ordered: [facility]ge Test METABOLIC PANEL [code 01/29/2020 of Med icine = 40498-1] Encounters Start End Encounter Admission Attending Care Care Encounter Source Date/Time Date/Time Type Type Clinicians Facility Department ID 2021-06-21 2021-06-21 Outpatient R DIMAS [facility] [id number] Univers 13:30:00 13:30:00 FANI woods [facility] 2021-05-25 2021-05-25 Office Vitor [facility] [id number] Univers 13:12:58 14:19:53 Visit [facility] [id number] chuck roy LIVONIA [id number] Simone as TICO?BLEA [id number] [address] MEDICAL OFFICE BUILDING 2020-07-22 2020-07-22 Office Sony [facility] [id number] 14:12:24 15:24:24 Visit Curtis HOBSON [id number] RAFAEL [id number] [place] [id number] [facility] 2020-07-22 2020-07-22 Orders Doctor JONES [id number] 00:00:00 00:00:00 Only Unassigned, DMITRIY 350.1.13.10 [facility] [id number] [id number] 2020-01-29 2020-01-29 Office Jackson Gomes [id number] [facility] 12:17:03 15:03:46 Visit Kiana AMBULATOR 350.1.13.21 [employer] 0.2.7.2.686 of [id number] Medi tristan 800 e 2020-01-29 2020-01-29 Office Jackson Gomes [id number] 12:17:03 15:03:46 Visit Kiana AMBULATOR 350.1.13.21 Y [id number] [id number] 2019-08-05 2019-08-05 Office Mick Gomes BCM [id number] [facility] 09:52:58 12:43:04 Visit Akilah Ramirez AMBULATOR [id number] [employer] Y [id number] of [id number] [facility] 800 e 2019-08-05 2019-08-05 Office Mick Gomes BCM [id number] 09:52:58 12:43:04 Visit Akilah Ramirez AMBULATOR 350.1.13.21 Y 0.2.7.2.686 [id number] 800 Results This patient has no known results.
[2021-06-14] MEDS ORDERED: LIDOCAINE 1% MPF 5 ML VIAL ONE ×2 (16:30→16:43)
[2021-06-14] MEDS ORDERED: TETANUS & DIPHTHERIA TOX,ADULT 0.5 ML VIAL ONE (16:43)
[2021-06-14] MEDS ORDERED: MUPIROCIN 2% OINT 22GM TUBE TOP ONE (16:43)
[2021-06-14] MEDS ORDERED: CEPHALEXIN 250 MG CAP ONE (16:43)
--- NOTE | 2021-06-14 17:12 | EDPHYS ---
Physician Documentation [facility] Name: Herminia Truong Age: 65 yrs Sex: Female : 1955 Arrival Date: 06/14/2021 Time: 15:54 Bed 11 Private MD: SHAE Physician Jakob Alexandra HPI: 06/14 17:03 This 65 yrs old Female presents to ER via Ambulatory with complaints of charly Laceration - finger. 17:03 The patient or guardian reports a laceration, irregular, 1.5 cm(s). The complaints charly affect the left hand diffusely. Context: The problem was sustained at home. Onset: The symptoms/episode began/occurred yesterday. Modifying factors: The symptoms are alleviated by nothing, the symptoms are aggravated by movement, dependent position. Associated signs and symptoms: The patient has no apparent associated signs or symptoms. Severity of symptoms: At their worst the symptoms were moderate, in the emergency department the symptoms are unchanged. The patient has not experienced similar symptoms in the past. Historical: - Allergies: 16:00 Vancomycin; vg1 - Home Meds: 16:00 Humalog Sub-Q [Active]; Lipitor Oral [Active]; vg1 - PMHx: 16:00 Diabetes - IDDM; Hyperlipidemia; Hypertension; vg1 - Immunization history:: Client reports receiving the 2nd dose of the Covid vaccine. - Social history:: Smoking status: Patient/guardian denies using tobacco, the patient reports quitting approximately 15 years ago. - Family history:: not pertinent. ROS: 17:03 Constitutional: Negative for fever, chills, and weight loss, Eyes: Negative for injury, charly pain, redness, and discharge, ENT: Negative for injury, pain, and discharge, Neck: Negative for injury, pain, and swelling, Cardiovascular: Negative for chest pain, palpitations, and edema, Respiratory: Negative for shortness of breath, cough, wheezing, and pleuritic chest pain, Abdomen/GI: Negative for abdominal pain, nausea, vomiting, diarrhea, and constipation, Back: Negative for injury and pain, : Negative for injury, bleeding, discharge, and swelling, Skin: Negative for injury, rash, and discoloration, Neuro: Negative for headache, weakness, numbness, tingling, and seizure, Psych: Negative for depression, anxiety, suicide ideation, homicidal ideation, and hallucinations, Allergy/Immunology: Negative for hives, rash, and allergies, Endocrine: Negative for neck swelling, polydipsia, polyuria, polyphagia, and marked weight changes, Hematologic/Lymphatic: Negative for swollen nodes, abnormal bleeding, and unusual bruising. 17:03 MS/extremity: Positive for decreased range of motion, laceration, pain. Exam: 17:03 Constitutional: This is a well developed, well nourished patient who is awake, alert, charly and in no acute distress. Head/Face: Normocephalic, atraumatic. Eyes: Pupils equal round and reactive to light, extra-ocular motions intact. Lids and lashes normal. Conjunctiva and sclera are non-icteric and not injected. Cornea within normal limits. Periorbital areas with no swelling, redness, or edema. ENT: Nares patent. No nasal discharge, no septal abnormalities noted. Tympanic membranes are normal and external auditory canals are clear. Oropharynx with no redness, swelling, or masses, exudates, or evidence of obstruction, uvula midline. Mucous membranes moist. Neck: Trachea midline, no thyromegaly or masses palpated, and no cervical lymphadenopathy. Supple, full range of motion without nuchal rigidity, or vertebral point tenderness. No Meningismus. Chest/axilla: Normal chest wall appearance and motion. Nontender with no deformity. No lesions are appreciated. Cardiovascular: Regular rate and rhythm with a normal S1 and S2. No gallops, murmurs, or rubs. Normal PMI, no JVD. No pulse deficits. Respiratory: Lungs have equal breath sounds bilaterally, clear to auscultation and percussion. No rales, rhonchi or wheezes noted. No increased work of breathing, no retractions or nasal flaring. Abdomen/GI: Soft, non-tender, with normal bowel sounds. No distension or tympany. No guarding or rebound. No evidence of tenderness throughout. Back: No spinal tenderness. No costovertebral tenderness. Full range of motion. Female : Normal external genitalia. Skin: Warm, dry with normal turgor. Normal color with no rashes, no lesions, and no evidence of cellulitis. Neuro: Awake and alert, GCS 15, oriented to person, place, time, and situation. Cranial nerves II-XII grossly intact. Motor strength 5/5 in all extremities. Sensory grossly intact. Cerebellar exam normal. Normal gait. Psych: Awake, alert, with orientation to person, place and time. Behavior, mood, and affect are within normal limits. 17:03 Musculoskeletal/extremity: Extremities: grossly normal except: noted in the palmar aspect of proximal phalanx of left little finger: laceration. Vital Signs: 15:55 BP 119 / 64; Pulse 102; Resp 18; Temp 97.8; Pulse Ox 98% ; Weight 74.84 kg; Height 5 vg1 ft. 1 in. (154.94 cm); Pain 0/10; 16:11 BP 122 / 67; Pulse 99; Resp 18; Pulse Ox 99% on R/A; Pain 6/10; ld1 15:55 Body Mass Index 31.18 (74.84 kg, 154.94 cm) vg1 Laceration: 17:07 Wound Repair of 1.5cm ( 0.6in ) subcutaneous laceration to palmar aspect of proximal charly phalanx of left little finger. Irregularly shaped.. Distal neuro/vascular/tendon intact. Anesthesia: Local anesthetic administered with 5 mls of 1% lidocaine. Wound prep: Simple cleansing by ut. Skin closed with 2 5-0 Prolene using interrupted sutures and sterile technique. Dressed with Neosporin. Patient tolerated well. MDM: 16:05 Patient medically screened. [facility] 17:05 Differential diagnosis: open fracture, contusion, abrasion. Data reviewed: vital signs, [facility] nurses notes. Data interpreted: pay clerk: not applicable for this patient encounter. rate is 99 beats/min, rhythm is regular, Pulse oximetry: on room air is 99 %. Counseling: I had a detailed discussion with the patient and/or guardian regarding: the historical points, exam findings, and any diagnostic results supporting the discharge/admit diagnosis, the need for outpatient follow up, for definitive care, a family practitioner. 06/14 16:30 Order name: Dressing - Wound; Complete Time: 16:48 [facility] 06/14 16:30 Order name: Gloves, Sterile; Complete Time: 16:48 [facility] 06/14 16:30 Order name: Prolene, Sutures; Complete Time: 16:48 [facility] 06/14 16:30 Order name: Setup Suture Tray; Complete Time: 16:48 [facility] Administered Medications: 16:48 Drug: Tetanus-Diphtheria Toxoid Ped 0.5 ml {[employer] Console Operator Track: Regroup Therapy. Exp: ld1 11/20/2022. Lot #: [id number]. } Route: IM; Site: right deltoid; 16:48 Follow up: Response: No adverse reaction ld1 16:48 Drug: KeFLEX (cephalexin) 500 mg Route: PO; ld1 16:54 Follow up: Response: No adverse reaction ld1 16:54 Drug: Lidocaine (1 %) 5 ml {Note: Administered by Jakob Alexandra MD..} Volume: 5 ml; ld1 Route: Infiltration; 16:54 Drug: Bactroban (mupirocin) Ointment 2 % 1 application Route: Topical; Site: affected ld1 area; Disposition Summary: 06/14/21 17:11 Discharge Ordered Location: Home charly Problem: new charly Symptoms: have improved charly Condition: Stable charly Diagnosis - Laceration without foreign body of left hand, initial encounter charly Followup: charly - With: Private Physician - When: 2 - 3 days - Reason: Recheck today's complaints, Continuance of care, Re-evaluation by your physician Discharge Instructions: - Discharge Summary Sheet charly - Laceration Care, Adult charly - Laceration Care, Adult, [id number] Forms: - Medication Reconciliation Form charly - Thank You Letter charly - Antibiotic Education charly - Prescription Opioid Use charly Prescriptions: - Centany 2 % Topical ointment - apply 1 application by TOPICAL route 3 times per day; 15 gram; Refills: 0, charly Product Selection Permitted - cephalexin 500 mg Oral capsule - take 1 capsule by ORAL route 4 times per day; 28 capsule; Refills: 0, Product charly Selection Permitted Signatures: Jakob Alexandra MD MD cha Garcia, Victoria RN RN vg1 Jenifer Staley, RN RN ld1
--- NOTE | 2021-06-14 17:12 | ER ---
Nurse's Notes [facility] Name: Herminia Truong Age: 65 yrs Sex: Female : 1955 Arrival Date: 06/14/2021 Time: 15:54 Bed 11 Private MD: Diagnosis: Laceration without foreign body of left hand, initial encounter Presentation: 06/14 15:55 Chief complaint: Patient states: cut left pinky last night and states son placed a vg1 tight compression on it. States today site is 'still bleeding a lot'. Coronavirus screen: Vaccine status: Patient reports receiving the 2nd dose of the covid vaccine. Client denies travel out of the [place] in the last 14 days. Ebola Screen: Patient negative for fever greater than or equal to 101.5 degrees Fahrenheit, and additional compatible Ebola Virus Disease symptoms. Complicating Factors: There are no complicating factors for this patient. Initial Sepsis Screen: Does the patient meet any 2 criteria? Yes Does the patient have a suspected source of infection? No. Patient's initial sepsis screen is negative. Risk Assessment: Do you want to hurt yourself or someone else? Patient reports no desire to harm self or others. Onset of symptoms was June 13, 2020. 15:55 Method Of Arrival: Ambulatory vg1 15:55 Acuity: VELVET 4 vg1 Triage Assessment: 16:00 General: Appears in no apparent distress. comfortable, Behavior is calm, cooperative. vg1 Pain: Denies pain. Injury Description: Laceration sustained to palmar aspect of proximal phalanx of left little finger was sustained 1 day ago. Historical: - Allergies: 16:00 Vancomycin; vg1 - Home Meds: 16:00 Humalog Sub-Q [Active]; Lipitor Oral [Active]; vg1 - PMHx: 16:00 Diabetes - IDDM; Hyperlipidemia; Hypertension; vg1 - Immunization history:: Client reports receiving the 2nd dose of the Covid vaccine. - Social history:: Smoking status: Patient/guardian denies using tobacco, the patient reports quitting approximately 15 years ago. - Family history:: not pertinent. Screenin:11 Abuse screen: Denies threats or abuse. Denies injuries from another. Nutritional ld1 screening: No deficits noted. Tuberculosis screening: No symptoms or risk factors identified. Fall Risk None identified. Assessment: 16:11 General: Appears in no apparent distress. comfortable, Behavior is calm, cooperative, ld1 appropriate for age. Pain: Complains of pain in palmar aspect of distal phalanx of left little finger, palmar aspect of middle phalanx of left little finger and palmar aspect of proximal phalanx of left little finger Pain does not radiate. Pain currently is 6 out of 10 on a pain scale. Quality of pain is described as throbbing, Pain began suddenly, Is continuous. Neuro: Level of Consciousness is awake, alert, obeys commands, Oriented to person, place, time, situation. Cardiovascular: Capillary refill < 3 seconds Patient's skin is warm and dry. Respiratory: Airway is patent Respiratory effort is even, unlabored, Respiratory pattern is regular, symmetrical. GI: Abdomen is flat, non-distended. : No signs and/or symptoms were reported regarding the genitourinary system. EENT: No signs and/or symptoms were reported regarding the EENT system. Derm: No signs and/or symptoms reported regarding the dermatologic system. Musculoskeletal: No signs and/or symptoms reported regarding the musculoskeletal system. 17:21 Injury Description: Laceration is clean. ld1 Vital Signs: 15:55 BP 119 / 64; Pulse 102; Resp 18; Temp 97.8; Pulse Ox 98% ; Weight 74.84 kg; Height 5 vg1 ft. 1 in. (154.94 cm); Pain 0/10; 16:11 BP 122 / 67; Pulse 99; Resp 18; Pulse Ox 99% on R/A; Pain 6/10; ld1 15:55 Body Mass Index 31.18 (74.84 kg, 154.94 cm) vg1 ED Course: 15:54 Patient arrived in ED. am2 16:00 Triage completed. vg1 16:00 Arm band placed on. vg1 16:05 Jakob Alexandra MD is Attending Physician. [facility] 16:10 Jenifer Staley, JENNIFER is Primary Nurse. ld1 16:11 Patient has correct armband on for positive identification. Bed in low position. Call ld1 light in reach. Side rails up X2. Pulse ox on. NIBP on. Door closed. Noise minimized. 17:20 Assist provider with laceration repair using sutures. Set up tray. Performed by Jakob Alexandra MD. Patient did not have IV access during this emergency room visit. Administered Medications: 16:48 Drug: Tetanus-Diphtheria Toxoid Ped 0.5 ml {Tobacco Weigher: [employer]. Exp: ld1 11/20/2022. Lot #: [id number]. } Route: IM; Site: right deltoid; 16:48 Follow up: Response: No adverse reaction ld1 16:48 Drug: KeFLEX (cephalexin) 500 mg Route: PO; ld1 16:54 Follow up: Response: No adverse reaction ld1 16:54 Drug: Lidocaine (1 %) 5 ml {Note: Administered by Jakob Alexandra MD..} Volume: 5 ml; ld1 Route: Infiltration; 16:54 Drug: Bactroban (mupirocin) Ointment 2 % 1 application Route: Topical; Site: affected ld1 area; Outcome: 17:11 Discharge ordered by . charly 17:21 Discharged to home ambulatory. ld1 17:21 Condition: stable 17:21 Discharge instructions given to patient, Instructed on discharge instructions, follow up and referral plans. medication usage, Demonstrated understanding of instructions, follow-up care, medications. 17:21 Patient left the ED. ld1 Signatures: Jakob Alexandra MD MD cha Moreno, Amanda am2 Garcia, Victoria, RN RN vg1 Jenifer Staley RN RN ld1
[2021-06-14 17:29] VITALS: TEMP 97.8
[2021-06-14 17:30] VITALS: BP 122/67; O2SAT 99
== END 2021-06-14 17:21 | disposition home or self-care (01) ==
LOC: ER 15:53
PROC: 0JQK0ZZ Repair Left Hand Subcutaneous Tissue and Fascia, Open Approach (ICD-10-PCS; principal; 2021-06-14)
DX: S61.217A Laceration without foreign body of left little finger without damage to nail, initial encounter (principal); W45.8XXA Other foreign body or object entering through skin, initial encounter; Y92.009 Unspecified place in unspecified non-institutional (private) residence as the place of occurrence of the external cause; I10 Essential (primary) hypertension; E11.9 Type 2 diabetes mellitus without complications; Z79.4 Long term (current) use of insulin; Z23 Encounter for immunization; Z88.3 Allergy status to other anti-infective agents
CPT/HCPCS: 90471; 90714; 99283

== ENCOUNTER 2021-12-24 19:55 | Emergency (ER) | payer OTHER ==
--- OUTSIDE RECORDS SUMMARY | 2021-12-24 20:00 | XMS REPORT | Continuity of Care Document ---
:[address] [facility] t Address [address] [place] [address] [address]. [address] [place] [address] Care Team Providers Name Role Phone Edith Fisher Primary Care Physician Prem Cochran MD Attending Clinician PREM COCHRAN Attending Clinician Unavailable Sony STEWART Attending Clinician Doctor Unassigned, Name Attending Clinician Unavailable Eliseo STEWART, Kiana Attending Clinician Payers Payer Name Policy Type Policy Number Effective Date Expiration Date S ource Problems Condition Condition Condition Status Onset Resolution Last Treating Co mments Source Name Details Category Date Date Treatment Clinician Date Dietary Dietary Disease Active Univers B12 B12 9-13 ity of deficiency [place] 00:[place] [facility] Mixed Mixed Disease Active Univers hyperlipid hyperlipid 6-05 it y of emia emia 00:00: [place] 00 Medical Branch 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 1-19 ity of mellitus mellitus 00:00: [place] with with 00 Medical diabetic diabetic Branch polyneurop polyneurop athy athy Depression Depression Disease Active 2014-07 U nivers 0-12 ity of 00:00: [place] 00 Medical Branch Sinusitis Sinusitis Disease Active Uni vers 7-16 ity of 00:00: [place] 00 Medical Branch Diabetic Diabetic Disease Active Unive rs arthropath arthropath 3-15 it y of y y 00:00: [place] [facility] Adhesive Adhesive Disease Active Unive [...] Formattin ity of 00:00: g of this [place] 00 note Medical might be Branch different from the original. ICD10 Diagnosis Term Ad Operations Intern Utility Allergies, Adverse Reactions, Alerts Allergy Allergy Status Severity Reaction(s) Onset Inactive Treating Comm ents Source Name Type Date Date Clinician Vancomyc Propensi Active [facility] in ty to 2-11 College adverse 00:00: [...] Start Date Stop Date Quantity Comments Source History SDOH University o f Alcohol Frequency [place] M edical [facility] History SDKS University o f Alcohol Std Drinks [place] [facility] History SDKS University o f Alcohol Binge [place] Medic al Branch Exposure to Not sure University of SARS-CoV-2 (event) [facility] Sex Assigned At [facility] [employer] of Medicine Alcohol intake 2021-09-20 2021-09-20 Current drinker Unive rsity of 00:00:00 00:00:00 of alcohol [place] Medical (finding) Branch Alcohol Comment 2012-09-21 2012-09-21 occasional Universit y of 00:00:00 00:00:00 [facility] Branch Cigarettes smoked 2012-07-24 2012-07-24 Univers ity of current (pack per 00:00:00 00:00:00 [place] ) - Reported Branch Tobacco use and 2012-07-24 2012-07-24 Never used Universit y of exposure 00:00:00 00:00:00 [facility] History of tobacco 2005-07-10 Current smoker [employer] of use 00:00:00 Medicine Smoking Status Start Date Stop Date Source Former smoker 2012-07-24 00:00:00 2012-07-24 00:00:00 Universi ty [facility] Branch Medications Ordered Filled Start Stop Current Ordering Indication Dosage Frequency Signature Comments Components Source Medication Medication Date Date Medication? Clinician (SIG) Name Name traMADoL 50 Yes [id number] 50mg Take 1 Univ ers mg tablet 2-08 tablet by ity o f 00:00: mouth 3 [place] 00 (three) Medical times Branch daily. Indication s: chronic pain methocarbam Yes [id number] 750mg Take 1.5 Univers oL 2-08 tablets by ity of (ROBAXIN) 00:00: mouth 2 [place] 500 mg 00 (two) Medical tablet times Branch daily. traMADoL 50 Yes [id number] 50mg Take 1 Univ ers mg tablet 2-08 tablet by ity o f 00:00: mouth 3 [place] 00 (three) Medical times Branch daily. Indication s: chronic pain methocarbam Yes [id number] 750mg Take 1.5 Univers oL 2-08 tablets by ity of (ROBAXIN) 00:00: mouth 2 [place] 500 mg 00 (two) Medical tablet times Branch daily. traMADoL 50 Yes [id number] 50mg Take 1 Univ ers mg tablet 2-08 tablet by ity o f 00:00: mouth 3 [place] 00 (three) Medical times Branch daily. Indication s: chronic pain methocarbam Yes [id number] 750mg Take 1.5 Univers oL 2-08 tablets by ity of (ROBAXIN) 00:00: mouth 2 [place] 500 mg 00 (two) Medical tablet times Branch daily. insulin 2020-07 Yes [id number] 26U inject 26 U nivers degludec 2-13 Units ity of 200 unit/mL 00:00: under [place] (3 mL) In 00 skin Medical daily. Branch atorvastati 2020-07 Yes [id number] 40mg Take 1 Univers n 40 mg 2-13 tablet by ity of tablet 00:00: mouth at [place] 00 bedtime. Medical Branch hydroCHLORO 2020-07 Yes [id number] 25mg Take 1 U nivers thiazide 25 2-13 tablet by ity of mg tablet 00:00: mouth [place] 00 daily. Medical Branch SERTraline 2020-07 Yes [id number] 100mg Take 1 Univers 100 mg 2-13 tablet by ity of tablet 00:00: mouth [place] 00 daily. Medical Branch insulin 2020-07 Yes [id number] inject 26 U nivers degludec 2-13 Units ity of 200 unit/mL 00:00: under the [place] (3 mL) In 00 skin Medical daily. Branch atorvastati 2020-07 Yes [id number] 40mg Take 1 Univers n 40 mg 2-13 tablet by ity of tablet 00:00: mouth at [place] 00 bedtime. Medical Branch hydroCHLORO 2020-07 Yes [id number] 25mg Take 1 U nivers thiazide 25 2-13 tablet by ity of mg tablet 00:00: mouth [place] 00 daily. Medical Branch SERTraline 2020-07 Yes [id number] 100mg Take 1 Univers 100 mg 2-13 tablet by ity of tablet 00:00: mouth [place] 00 daily. Medical Branch insulin 2020-07 Yes [id number] 26U inject 26 U nivers degludec 2-13 Units ity of 200 unit/mL 00:00: [place] the [place] ([facility] daily. Branch atorvastati 2020-07 Yes [id number] 40mg Take 1 Univers n 40 mg 2-13 tablet by ity of tablet 00:00: mouth at [place] 00 bedtime. Medical Branch hydroCHLORO 2020-07 Yes [id number] 25mg Take 1 U nivers thiazide 25 2-13 tablet by ity of mg tablet 00:00: mouth [place] 00 daily. Medical Branch SERTraline 2020-07 Yes [id number] 100mg Take 1 Univers 100 mg 2-13 tablet by ity of tablet 00:00: mouth [place] 00 daily. 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) Misc Blood-Gluco 2020-07 Yes Change Univ ers se 2-07 every 90 ity of Transmitter 00:00: days [place] (DEXCOM G6 00 Medical TRANSMITTER Branch ) Jazmin Blood-Gluco 2020-07 Yes Change Univ ers se Sensor 2-07 sensor ity of (DEXCOM G6 00:00: every 10 [place] as SENSOR) Medical Jazmin Branch Blood-Gluco 2020-07 Yes Use as Univ ers se 2-07 directed ity of Meter,Jeff 00:00: [place] nuous Medical (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[employer] 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) Misc Blood-Gluco 2020-07 Yes Change Univ ers se 2-07 every 90 ity of Transmitter 00:00: days (DEXCOM G6 00 Medical TRANSMITTER Branch ) Jazmin Blood-Gluco 2020-07 Yes Change Univ ers se Sensor 2-07 sensor ity of (DEXCOM G6 00:00: every 10 [place] as SENSOR) Medical Jazmin Branch Blood-Gluco 2020-07 Yes Use as Univ ers se 2-07 directed ity of Meter,Jeff 00:00: [place] nuous Medical (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[employer] 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) Misc Blood-Gluco 2020-07 Yes Change Univ ers se 2-07 every 90 ity of Transmitter 00:00: days [place] (DEXCOM G6 00 Medical TRANSMITTER Branch ) Jazmin Blood-Gluco 2020-07 Yes Change Univ ers se Sensor 2-07 sensor ity of (DEXCOM G6 00:00: every 10 [place] as SENSOR) Medical Jazmin Branch VITAMIN C 2020-07 Yes 1 daily Unive rs 500 MG ORAL 07-11 ity of TAB 13:56: [address] MULTI-VITAM 2020-07 Yes 1 daily Uni vers IN ORAL 07-11 ity of 13:56: [address] ASPIRIN 81 2020-07 Yes once daily U nivers MG ORAL 02 ity of CHEW 13:56: [address] cholecalcif 2020-07 Yes 1000U Take 1,000 Univers christina, -02 Units by ity of vitamin D3, 13:56: mouth [place] (VITAMIN 05 daily. Medical D3) 1,000 Branch unit tablet CYANOCOBALA 2020-07 Yes Take by Un nico MIN, 02 mouth ity of VITAMIN 13:56: daily. [place] B- Medical (VITAMIN Branch B-12 ORAL) Dexlansopra 2020-07 Yes Take by Un nico zole -02 mouth. ity of (DEXILANT) 13:56: [place] 60 mg 05 Medical capsule Branch VITAMIN C 2020-07 Yes 1 daily Unive rs 500 MG ORAL 07-11 ity of TAB 13:56: [address] MULTI-VITAM 2020-07 Yes 1 daily Uni vers IN ORAL 07-11 ity of 13:56: [address] ASPIRIN 81 2020-07 Yes once daily U nivers MG ORAL 07-11 ity of CHEW 13:56: [address] cholecalcif 2020-07 Yes 1000U Take 1,000 Univers christina, 1-02 Units by ity of vitamin D3, 13:56: mouth [place] (VITAMIN 05 daily. Medical D3) 1,000 Branch unit tablet CYANOCOBALA 2020-07 Yes Take by Un nico MIN, 07-11 mouth ity of VITAMIN 13:56: daily. [place] Medical (VITAMIN Branch B-12 ORAL) Dexlansopra 2020-07 Yes Take by Un nico zole -02 mouth. ity of (DEXILANT) 13:56: [place] 60 mg 05 Medical capsule Branch VITAMIN C 2020-07 Yes 1 daily Unive rs 500 MG ORAL 07-11 ity of TAB 13:56: [address] MULTI-VITAM 2020-07 Yes 1 daily Uni vers IN ORAL 07-11 ity of 13:56: [address] ASPIRIN 81 2020-07 Yes once daily U nivers MG ORAL 07-11 ity of CHEW 13:56: [address] cholecalcif 2020-07 Yes 1000U Take 1,000 Univers christina, 1-02 Units by ity of vitamin D3, 13:56: mouth [place] (VITAMIN 05 daily. Medical D3) 1,000 Branch unit tablet CYANOCOBALA 2020-07 Yes Take by Un nico MIN, -02 mouth ity of VITAMIN 13:56: daily. [place] B- Medical (VITAMIN Branch B-12 ORAL) Dexlansopra 2020-07 Yes Take by Un nico zole -02 mouth. ity of (DEXILANT) 13:56: [place] 60 mg 05 Medical capsule Branch insulin Yes [id number] inject Univ ers lispro 9-13 under the ity of (HUMALOG 00:00: skin 3 [place] KWIKPEN 00 (three) Medical INSULIN) times Branch 100 unit/mL daily pen before injector meals, est 40 units/day. glucagon 1 Yes [id number] 1mg inject 1 Univers mg/0.2 mL 9-13 mg under ity of AtIn 00:00: the skin [place] 00 as needed Medical for Other. Branch insulin Yes [id number] inject Univ ers lispro 9-13 under the ity of (HUMALOG 00:00: skin 3 [place] KWIKPEN 00 (three) Medical INSULIN) times Branch 100 unit/mL daily pen before injector meals, est 40 units/day. glucagon 1 Yes [id number] 1mg inject 1 Univers mg/0.2 mL 9-13 mg under ity of AtIn 00:00: the skin [place] 00 as needed Medical for Other. Branch insulin Yes [id number] inject Univ ers lispro 9-13 under the ity of (HUMALOG 00:00: skin 3 [place] KWIKPEN 00 (three) Medical INSULIN) times Branch 100 unit/mL daily pen before injector meals, est 40 units/day. glucagon 1 Yes [id number] 1mg inject 1 Univers mg/0.2 mL 9-13 mg under ity of AtIn 00:00: the skin [place] 00 as needed Medical for Other. Branch DICLOFENAC Yes [id number] APPLY ONE Univers EPOLAMINE 8-31 PATCH TO ity of 1.3 % patch 00:00: [place]ECTED [place] 00 AREA TWICE Medical A DAY Branch NEEDED FOR PAIN (SCALE 1-3) OR PAIN (SCALE 4-6) (DO NOT APPLY TO DAMAGED SKIN, DO NOT WEAR WHILE BATHING OR SHOWERING, WASH HANDS AFTER HANDLING) DICLOFENAC Yes [id number] APPLY GEL Univers SODIUM 1 % 8-31 TO ity of gel 00:00: AFFECTED [place] 00 AREA(S) Medical EVERY 6 Branch HOURS NEEDED FOR PAIN (SCALE 4-6) OR PAIN (SCALE 7-10) -(USE THE ENCLOSED DOSING CARD AND PATIENT INSTRUCTIO N SHEET FOR PROPER DOSING GUIDANCE OR DIRECTED BY YOUR DOCTOR. TOTAL AMOUNT USED EACH DAY SHOULD NOT EXCEED 32 GRAMS) DICLOFENAC Yes [id number] APPLY ONE Univers EPOLAMINE 8-31 PATCH TO ity of 1.3 % patch 00:00: [place]ECTED [place] 00 AREA TWICE Medical A DAY Branch NEEDED FOR PAIN (SCALE 1-3) OR PAIN (SCALE 4-6) (DO NOT APPLY TO DAMAGED SKIN, DO NOT WEAR WHILE BATHING OR SHOWERING, WASH HANDS AFTER HANDLING) DICLOFENAC Yes [id number] APPLY GEL Univers SODIUM 1 % 8-31 TO ity of gel 00:00: AFFECTED [place] 00 AREA(S) Medical EVERY 6 Branch HOURS NEEDED FOR PAIN (SCALE 4-6) OR PAIN (SCALE 7-10) -(USE THE ENCLOSED DOSING CARD AND PATIENT INSTRUCTIO N SHEET FOR PROPER DOSING GUIDANCE OR DIRECTED BY YOUR DOCTOR. TOTAL AMOUNT USED EACH DAY SHOULD NOT EXCEED 32 GRAMS) DICLOFENAC Yes [id number] APPLY ONE Univers EPOLAMINE 8-31 PATCH TO ity of 1.3 % patch 00:00: [place]ED [place] 00 AREA TWICE Medical A DAY Branch NEEDED FOR PAIN (SCALE 1-3) OR PAIN (SCALE 4-6) (DO NOT APPLY TO DAMAGED SKIN, DO NOT WEAR WHILE BATHING OR SHOWERING, WASH HANDS AFTER HANDLING) DICLOFENAC Yes [id number] APPLY GEL Univers SODIUM 1 % 8-31 TO ity of gel 00:00: AFFECTED 00 AREA(S) Medical EVERY 6 Branch HOURS NEEDED FOR PAIN (SCALE 4-6) OR PAIN (SCALE 7-10) -(USE THE ENCLOSED DOSING CARD AND PATIENT INSTRUCTIO N SHEET FOR PROPER DOSING GUIDANCE OR DIRECTED BY YOUR DOCTOR. TOTAL AMOUNT USED EACH DAY SHOULD NOT EXCEED 32 GRAMS) diltiazem Yes [id number] 120mg Take 1 Un nico 120 mg 7-09 tablet by ity of tablet 00:00: mouth 3 [place] 00 (three) Medical times Branch daily. aliskiren Yes [id number] 150mg Take 1 Un nico (TEKTURNA) 7-09 tablet by ity of 150 mg 00:00: mouth [place] tablet 00 daily. Medical Branch Insulin Yes [id number] 4 (four) Un nico [place], 7-09 times ity of Disposable, 00:00: [place]. [place] (BD 00 Medical ULTRAFINE Branch III MINI PEN) 31 gauge x 3/16" Ndle diltiazem 0 Yes [id number] 120mg Take 1 Un nico 120 mg 7-09 tablet by ity of tablet 00:00: mouth 3 [place] 00 (three) Medical times Branch daily. aliskiren 0 Yes [id number] 150mg Take 1 Un nico (TEKTURNA) 7-09 tablet by ity of 150 mg 00:00: mouth [place] tablet 00 daily. Medical Branch Insulin 0 Yes [id number] 4 (four) Un nico [place], 7-09 times ity of Disposable, 00:00: daily. [place] (BD 00 Medical ULTRAFINE Branch III MINI PEN) 31 gauge x 3/16" Ndle diltiazem Yes [id number] 120mg Take 1 Un nico 120 mg 7-09 tablet by ity of tablet 00:00: mouth 3 [place] 00 (three) Medical times Branch daily. aliskiren Yes [id number] 150mg Take 1 Un nico (TEKTURNA) 7-09 tablet by ity of 150 mg 00:00: mouth [place] tablet 00 daily. Medical Branch Insulin Yes [id number] 4 (four) Un nico [place], 7-09 times ity of Disposable, 00:00: daily. [place] (BD 00 Medical ULTRAFINE Branch III MINI PEN) 31 gauge x 3/16" Ndle methocarbam 2020-0 Yes [id number] 500mg Take 1 Univers ol 6-15 tablet by ity of (ROBAXIN) 00:00: mouth 2 [place] 500 mg 00 (two) Medical tablet times Branch daily as needed for Pain (scale 4-6) or Pain (scale 7-10). methocarbam 2020-0 Yes [id number] 500mg Take 1 Univers ol 6-15 tablet by ity of (ROBAXIN) 00:00: mouth 2 [place] 500 mg 00 (two) Medical tablet times Branch daily as needed for Pain (scale 4-6) or Pain (scale 7-10). methocarbam 2020-0 Yes [id number] 500mg Take 1 Univers ol 6-15 tablet by ity of (ROBAXIN) 00:00: mouth 2 [place] 500 mg 00 (two) Medical tablet times Branch daily as needed for Pain (scale 4-6) or Pain (scale 7-10). HYDROcodone 2020-0 Yes 1{tbl} Take 1 Univers -acetaminop 3-11 tablet by ity of hen (NORCO) 00:00: mouth 2 [place] as 5-325 mg 00 (two) Medical tablet times Branch daily. HYDROcodone 2020-0 Yes 1{tbl} Take 1 Univers -acetaminop 3-11 tablet by ity of hen (NORCO) 00:00: mouth 2 [place] as 5-325 mg 00 (two) Medical tablet times Branch daily. HYDROcodone 2020-0 Yes 1{tbl} Take 1 Univers -acetaminop 3-11 tablet by ity of hen (NORCO) 00:00: mouth 2 [place] as 5-325 mg 00 (two) Medical tablet times Branch daily. Multiple 2018-07 Yes Take by [facility] Vit[facility]-Mi 2-16 mouth. Colleg e nerals 15:50: of (WOMENS 50+ 00 Medicin MULTI e VITAMIN/MIN OR) Ascorbic 2018-07 Yes Take by [facility] Acid 2-16 mouth. [facility] (VITAMIN C) 15:50: of 500 MG CAPS 00 Medicin e Dexlansopra 2018-07 Yes Take by [facility] zole 60 MG 2-16 mouth. [facility] CPDR 15:50: of 00 Medicin e Cyanocobala 2018-07 Yes Take by [facility] min 2-16 mouth. [facility] (VITAMIN 15:50: of B-12) 1000 00 Medicin MCG TABS e Multiple 2018-07 Yes Take [facility] (WOMENS 50+ 00 Medicin MULTI e VITAMIN/MIN OR) Ascorbic 2018-07 Yes Take by [facility] Acid 2-16 mouth. [facility] (VITAMIN C) 15:50: of 500 MG CAPS 00 Medicin e Dexlansopra 2018-07 Yes Take by [facility] zole 60 MG 2-16 mouth. [facility] CPDR 15:50: of 00 Medicin e Cyanocobala 2018-07 Yes Take by [facility] min 2-16 mouth. [facility] (VITAMIN 15:50: of B-12) 1000 00 Medicin MCG TABS e Insulin 2018-07 Yes 26U Inject 26 [facility] Degludec 2-02 Units into Colle ge 100 UNIT/ML 00:00: the skin. o f SOPN 00 Medicin e Insulin 2018- Yes 26U Inject 26 [facility] Degludec 2-02 Units into Colle ge 100 UNIT/ML 00:00: the skin. o f SOPN 00 Medicin e Insulin 2018-0 Yes inject [facility] Lispro, 1 5-20 under the Colle ge Unit Dial, 00:00: skin 3 of (HUMALOG 00 (three) Medicin KWIKPEN) times e 100 UNIT/ML daily SOPN before meals, est 35 units/day. Insulin Yes inject [facility] Lispro, 1 5-20 under the Colle ge Unit Dial, 00:00: skin 3 of (HUMALOG 00 (three) Medicin KWIKPEN) times e 100 UNIT/ML daily SOPN before meals, est 35 units/day. Diclofenac [address] [facility] Epolamine 2-11 onto the Colleg e 1.3 % PTCH 00:00: skin. of 00 Medicin e Diclofenac 2018-0 Yes Apply [facility] Sodium 1 % 2-11 topically. Col lege GEL 00:00: of Medicin e Diclofenac 2018-[address] [facility] Epolamine 2-11 onto the [facility] e 1.3 % PTCH 00:00: skin. of 00 Medicin e Diclofenac 2018-0 Yes Apply [facility] Sodium 1 % 2-11 topically. Col lege GEL 00:00: of 00 Medicin e codeine-gua 2018- Yes [id number] 5mL Take 5 mL Univers ifenesin 2-04 by mouth ity of (CHERATUSSI 00:00: every 6 [place] as N AC) 00 (six) Medical 10-100 mg/5 hours as Bran ch mL solution needed for Cough. codeine-gua 2018- Yes [id number] 5mL Take 5 mL Univers ifenesin 2-04 by mouth ity of (CHERATUSSI 00:00: every 6 [place] as N AC) 00 (six) Medical 10-100 mg/5 hours as Bran ch mL solution needed for Cough. codeine-gua 2018-0 Yes [id number] 5mL Take 5 mL Univers ifenesin 2-04 by mouth ity of (CHERATUSSI 00:00: every 6 [place] as N AC) 00 (six) Medical 10-100 mg/5 hours as Bran ch mL solution needed for Cough. Aliskiren 2019-0 Yes 150mg Take 150 [place] [facility] Fumarate 2-04 mg by College 150 MG TABS 00:00: mouth. of Medicin e Glucagon, Yes Inject as [place] [facility] rDNA, 2-04 directed College (GLUCAGON 00:00: to correct of EMERGENCY) 00 hypoglycem Med icin 1 MG KIT ia. e guaiFENesin Yes 5mL Take 5 mL [facility] -Codeine 2-04 by mouth. Colleg e 100-10 00:00: of MG/5ML SOLN Medicin e [place] Yes 150mg Take 150 [place] Fumarate 2-04 mg by College 150 MG TABS 00:00: mouth. of Medicin e Glucagon, Yes Inject as [place] [facility] rDNA, 2-04 directed [facility] (GLUCAGON 00:00: to correct of EMERGENCY) 00 hypoglycem Med icin 1 MG KIT ia. e guaiFENesin Yes 5mL Take 5 mL [facility] -Codeine 2-04 by mouth. Colleg e 100-10 00:00: of MG/5ML SOLN 00 Medicin e Glucose Yes Use 6 per [facility] Blood 2- day to College Strips 00:00: check of (FREESTYLE 00 blood Medicin TEST glucose. e STRIPS) Glucose 0 Yes Use 6 per [facility] Blood - day to College Strips 00:00: check of (FREESTYLE 00 blood Medicin TEST glucose. e STRIPS) hydrochloro 2017-0 Yes 25mg Take 25 mg [facility] thiazide 2-11 by mouth. Colleg e (HYDRODIURI 00:00: of L) 25 MG 00 Medicin tablet e Cholecalcif 2018-0 Yes 5000U 5,000 [facility] christina 50 MCG 2-11 Units. Colleg e (1999) 00:00: of CAPS 00 Medicin e hydrochloro 2018-0 Yes 25mg Take 25 mg [facility] thiazide 2-11 by mouth. Colleg e (HYDRODIURI 00:00: of L) 25 MG 00 Medicin tablet e Cholecalcif 2018-0 Yes 5000U 5,000 [facility] christina 50 MCG 2-11 Units. Colleg e (1999) 00:00: of CAPS 00 Medicin e aspirin EC 2014-07 Yes Take by [place] 81 MG 0-23 mouth. College tablet 00:00: of 00 Medicin e atorvastati 2014-07 Yes 40mg Take 40 mg [facility] n (LIPITOR) 0-23 by mouth. Col lege 40 MG 00:00: of tablet 00 Medicin e sertraline 2014-07 Yes 100mg Take 100 [facility] (ZOLOFT) 0-23 mg by [facility] 100 MG 00:00: mouth. of tablet 00 Medicin e aspirin EC 2014-07 Yes Take by [place] [facility] 81 MG 0-23 mouth. [facility] tablet 00:00: of 00 Medicin e atorvastati 2014-07 Yes 40mg Take 40 mg [facility] n (LIPITOR) 0-23 by mouth. Col lege 40 MG 00:00: of tablet 00 Medicin e sertraline 2014-07 Yes 100mg Take 100 [facility] (ZOLOFT) 0-23 mg by [facility] 100 MG 00:00: mouth. of tablet 00 Medicin e acetone, Yes [id number] Use as Uni vers urine, test 7 directed ity of (KETONE 00:00: as needed [place] URINE TEST) 00 to check Medi arlyn strip for Branch ketones acetone, Yes [id number] Use as Uni vers urine, test 713 directed ity of (KETONE 00:00: as needed [place] URINE TEST) 00 to check Medi arlyn strip for Branch ketones acetone, Yes [id number] Use as Uni vers urine, test 713 directed ity of (KETONE 00:00: as needed [place] URINE TEST) 00 to check Medi arlyn strip for Branch ketones Acetone, Yes Use as [facility] Urine, Test 7 directed [facility]onda e[facility] (RELION 00:00: as needed of KETONE) 00 to check Medicin STRP for e ketones Acetone, Yes Use as [facility] Urine, Test 713 directed Rhonda ege (RELION 00:00: as needed of KETONE) 00 to check Medicin STRP for e ketones Immunizations Ordered Filled Immunization Date Status Comments [facility] e Immunization Name Name Influenza Virus 2016-06-06 Completed Universit y of Vaccine Quad IM 3+ 00:00:00 [facility] Influenza Virus 2016-06-06 Completed Universit y of Vaccine Quad IM 3+ 00:00:00 [facility] Influenza Virus 2016-06-06 Completed Universit y of Vaccine Quad IM 3+ 00:00:00 [facility] Influenza Virus 2013-04-25 Completed Universit y of Vaccine (3+ yrs) 00:00:00 [facility] Influenza Virus 2013-04-25 Completed Universit y of Vaccine (3+ yrs) 00:00:00 [facility] Influenza Virus 2013-04-25 Completed Universit y of Vaccine (3+ yrs) 00:00:00 [facility] Influenza Virus 2012-07-24 Completed Universit y of Vaccine 00:00:00 [facility] Influenza Virus 2012-07-24 Completed Universit y of Vaccine 00:00:00 [facility] Influenza Virus 2012-07-24 Completed Universit y of Vaccine 00:00:00 [facility] Vital Signs Vital Name Observation Time Observation Value Comments Source Systolic blood 2021-09-20 18:19:00 112 mm[Hg] [facility]iver [facility] of [facility] Diastolic blood 2021-09-20 18:19:00 67 mm[Hg] Unive rsity of [facility] Heart rate 2021-09-20 18:19:00 96 /min [facility] Body temperature 2021-09-20 18:19:00 36.67 Jeny [facility] Respiratory rate 2021-09-20 18:19:00 18 /min [facility] Body height 2021-09-20 18:19:00 157.5 cm [facility] Body weight 2021-09-20 18:19:00 75.388 kg [facility] BMI 2021-09-20 18:19:00 30.40 kg/m2 [facility] Oxygen saturation in 2021-09-20 18:19:00 95 /min room air University Arterial blood by [facility] Pulse oximetry Branch Systolic blood 2020-01-29 18:45:00 122 mm[Hg] [facility] pressure Medicine Diastolic blood 2020-01-29 18:45:00 71 mm[Hg] [facility] pressure Medicine Heart rate 2020-01-29 18:45:00 89 /min [facility] Body temperature 2020-01-29 18:45:00 37 Jeny [facility] Body height 2020-01-29 18:45:00 154.9 cm [facility] Body weight 2020-01-29 18:45:00 73.483 kg [facility] BMI 2020-01-29 18:45:00 30.61 kg/m2 [facility] Systolic blood 2020-01-29 18:45:00 122 mm[Hg] [facility] of pressure Medicine Diastolic blood 2020-01-29 18:45:00 71 mm[Hg] [facility] of pressure Medicine Heart rate 2020-01-29 18:45:00 89 /min [facility] Body temperature 2020-01-29 18:45:00 37 Jeny [facility] Body height 2020-01-29 18:45:00 154.9 cm [facility] Body weight 2020-01-29 18:45:00 73.483 kg [facility] BMI 2020-01-29 18:45:00 30.61 kg/m2 [facility] Systolic blood 2019-08-05 16:14:00 119 mm[Hg] [facility] of pressure Medicine Diastolic blood 2019-08-05 16:14:00 70 mm[Hg] [facility] of pressure Medicine Heart rate 2019-08-05 16:14:00 78 /min [facility] [facility] Body temperature 2019-08-05 16:14:00 36.61 [facility] Body height 2019-08-05 16:14:00 154.9 cm [facility] [employer] Body weight 2019-08-05 16:14:00 74.39 kg [facility] BMI 2019-08-05 16:14:00 30.99 kg/m2 [facility] Systolic blood 2019-08-05 16:14:00 119 mm[Hg] [facility] Diastolic blood 2019-08-05 16:14:00 70 mm[Hg] [facility] Heart rate 2019-08-05 16:14:00 78 /min [facility] Body temperature 2019-08-05 16:14:00 36.61 [facility] Body height 2019-08-05 16:14:00 154.9 cm [facility] Body weight 2019-08-05 16:14:00 74.39 kg [facility] BMI 2019-08-05 16:14:00 30.99 kg/m2 [facility] Procedures Procedure Date / Time Performed Performing Clinician [facility] A1C 2021-09-20 18:29:00 Fani Cochran [facility] Plan of Care Planned Activity Planned Date Details Comments Source Future Scheduled COLON CANCER [facility] [employer]onda [employer] Test SCREENING: COLONOSCOPY of Me j[facility] [code = COLON CANCER SCREENING: COLONOSCOPY] Future Scheduled MAMMOGRAM ANNUAL [code [employer] [facility] = MAMMOGRAM ANNUAL] of Medic ine Future Scheduled TETANUS SHOT (ADULT) [employer] [facility] [code = TETANUS SHOT [...] Medi cine SCREENING] Future Scheduled PNEUMOVAX >=65 [facility] Test (PPSV23) [code = of Medicine PNEUMOVAX >=65 (PPSV23)] Future Scheduled PREVNAR >= 65 (PCV13) [employer] [facility] [code = PREVNAR >= 65 of Med icine (PCV13)] Future Scheduled FLU VACCINE > 6 MONTHS [employer] [facility] [code = FLU VACCINE > of Med icine 6 MONTHS] Future Scheduled CBC W/AUTO DIFF WITH Ordered: [employer] PLATELETS [code = 01/29/2020 of Medicin e 49841-3] Future Scheduled COMPREHENSIVE Ordered: [facility] Col [facility]ge Test METABOLIC PANEL [code 01/29/2020 of Med icine = 04624-9] Future Scheduled PROTIME & PTT [code = Ordered: [employer] NOCPT] 01/29/2020 of Medicine Future Scheduled COLON CANCER [facility] [employer] Test SCREENING: COLONOSCOPY of [facility] [code = COLON CANCER SCREENING: COLONOSCOPY] Future Scheduled MAMMOGRAM ANNUAL [code [employer] Test = MAMMOGRAM ANNUAL] of Medic ine Future Scheduled TETANUS SHOT (ADULT) [employer] Test [code = TETANUS SHOT of Medi cine (ADULT)] Future Scheduled Diabetic foot [facility] [employer] Test examination of Medicine (regime/therapy) [code = 499724874] Future Scheduled ANNUAL DIABETIC [facility] C [employer]lege Test RETINOPATHY SCREENING of Med [...] Medi cine SCREENING] Future Scheduled PNEUMOVAX >=65 [facility] Test (PPSV23) [code = of Medicine PNEUMOVAX >=65 (PPSV23)] Future Scheduled FLU VACCINE > 6 MONTHS [employer] [code = FLU VACCINE > of Med icine 6 MONTHS] Encounters Start End Encounter Admission Attending Care Care Encounter Source Date/Time Date/Time Type Type Clinicians Facility Department ID 2021-12-13 2021-12-13 [facility] [id number] [facility] 00:00:00 00:00:00 Fani Prem [facility] [id number] [id number] [id number] [facility] [address] 2021-09-20 2021-09-20 Outpatient R LELAND [facility] [id number] [facility] 13:00:00 14:30:55 FANI ity [facility] 2021-09-20 2021-09-20 [facility] [id number] [facility] 13:00:00 14:30:55 Visit Fani Amaro [facility] [id number] it[id number] [id number] Mn [facility]ical [address] 2020-07-22 2020-07-22 [facility] [id number] 14:12:24 15:24:24 Visit Curtis [facility] [id number] IAY 4.2.7.2.686 [facility] [id number] [facility] 2020-07-22 2020-07-22 Orders Doctor JONES [id number] 00:00:00 00:00:00 Only Unassigned, DMITRIY [id number] [place] [facility] [id number] [id number] 2020-01-29 2020-01-29 Office Jackson Gomes [id number] [facility] 12:17:03 15:03:46 Visit Akilah-Ashley AMBULATOR [id number] College Y 0.2.7.2.[id number] [facility] 800 e 2020-01-29 2020-01-29 Office Jackson GomesM [id number] 12:17:03 15:03:46 Visit Akilah-Ashley AMBULATOR [id number] Y [id number] [id number] 2019-08-05 2019-08-05 Office Mick Gomes [id number] [facility] 09:52:58 12:43:04 Visit Marilee AMBULATOR [id number] College Y [id number] [facility] 800 [address] 2019-08-05 2019-08-05 Office Mick GomesM [id number] 09:52:58 12:43:04 Visit Marilee AMBULATOR [id number] Y [id number] [id number] Results Test Description Test Time Test Comments Results Result Comments Source POCT HEMOGLOBIN A1C TEST 2021-09-20 18:44:00 Test Item Value Reference Range Interpretation Comme nts POCT HBA1C (test code = 4548-4) 7.1 % 4-6 A Lab Interpretation (test code = 31191-6) Abnormal [facility] HEMOGLOBIN A1C [id number] 18:44:00 Test Item Value Reference Range Interpretation Comments POCT HBA1C (test code = 4548-4) 7.1 % 4-6 A Lab Interpretation (test code = Abnormal 21763-6) [facility]
[2021-12-24] MEDS ORDERED: MORPHINE 4 MG/ML SYR ONE (20:41)
[2021-12-24] MEDS ORDERED: ONDANSETRON 4 MG/2 ML VIAL ONE (20:41)
--- NOTE | 2021-12-24 21:09 | RAD REPORT ---
EXAM DESCRIPTION: RAD - Shoulder Right 2 View - 12/24/2021 8:39 pm CLINICAL HISTORY: fall COMPARISON: No comparisons FINDINGS/IMPRESSION: Multipart fracture of the right proximal humerus involving the greater tuberosi ty, surgical neck, and possibly the lesser tuberosity. No dislocation. Degenerative changes are prese nt at the glenoid and AC joint.
--- NOTE | 2021-12-24 21:23 | RAD REPORT ---
EXAM DESCRIPTION: CT - CTHCSPWOC - 12/24/2021 9:14 pm CLINICAL HISTORY: Trauma, head and neck injury. Fall, head injury COMPARISON: Head C Spine Mpr Wo Con dated 04/27/2021 TECHNIQUE: Axial 5 mm thick images of the head were obtained. Axial 2 mm thick images of the cervical spine were obtained with sagittal and coronal reconstruction images generated and reviewed. All CT scans are performed using dose optimization technique as appropriate and may include automated exposure control or mA/KV adjustment according to patient size. FINDINGS: CT HEAD WITHOUT CONTRAST: No acute hemorrhage, hydrocephalus or extra-axial collection is identified.No areas of brain edema or midline shift. The paranasal sinuses and mastoids are clear.The calvarium is intact. CT CERVICAL SPINE WITHOUT CONTRAST: No fracture or subluxation.No prevertebral soft tissues swelling is identified. Multilevel cervical s pondylosis. 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 Varying degrees of neur al foraminal narrowing noted. IMPRESSION: No acute intracranial or cervical spine findings.
[2021-12-24] MEDS ORDERED: HYDROMORPHONE HCL 1 MG/ML INJ ONE (22:32)
[2021-12-24] MEDS ORDERED: HYDROMORPHONE HCL 0.5 MG/0.5 ML INJ ONE (23:50)
--- NOTE | 2021-12-25 00:06 | ER ---
Nurse's Notes [facility] Name: Herminia Truong Age: 66 yrs Sex: Female : 1955 Arrival Date: 12/24/2021 Time: 20:01 Bed 7 Private MD: Diagnosis: Humeral neck fracture;Acute head injury Presentation: 12/24 20:07 Chief complaint: Patient states: "I fell at the concert, I think that I really did a tw5 number to my shoulder". Coronavirus screen: Vaccine status: Patient reports being unvaccinated. Ebola Screen: Patient negative for fever greater than or equal to 101.5 degrees Fahrenheit, and additional compatible Ebola Virus Disease symptoms Patient denies exposure to infectious person. Patient denies travel to an Ebola-affected area in the 21 days before illness onset. Initial Sepsis Screen: Does the patient meet any 2 criteria? No. Patient's initial sepsis screen is negative. Does the patient have a suspected source of infection? No. Patient's initial sepsis screen is negative. Risk Assessment: Do you want to hurt yourself or someone else? Patient reports no desire to harm self or others. Onset of symptoms was December 24, 2021 at 19:30. 20:07 Method Of Arrival: Ambulatory tw5 20:07 Acuity: VELVET 3 tw5 22:54 Care prior to arrival: None. Mechanism of Injury: Fall from standing position. Trauma as6 event details: Injury occurred in the [facility], Injury occurred: in a recreational area. Triage Assessment: 20:13 General: Appears uncomfortable, Behavior is calm, cooperative, appropriate for age. tw5 Pain: Complains of pain in anterior aspect of right shoulder, right axilla and right bicep Pain currently is 8 out of 10 on a pain scale. Trauma Activation: Not Applicable Physician: ED Physician; Name: ; Notified At: ; Arrived At: Physician: General Surgeon; Name: ; Notified At: ; Arrived At: Physician: Radiology; Name: ; Notified At: ; Arrived At: Physician: Respiratory; Name: ; Notified At: ; Arrived At: Physician: Lab; Name: ; Notified At: ; Arrived At: Historical: - Allergies: 20:13 Vancomycin; tw5 - Home Meds: 12/25 00:25 Lipitor Oral [Active]; Humalog Sub-Q [Active]; kd3 - PMHx: 12/24 20:13 Diabetes - IDDM; Hyperlipidemia; Hypertension; tw5 - Immunization history:: Flu vaccine is not up to date. - Social history:: Smoking status: Patient/guardian denies using tobacco, the patient reports quitting approximately 16 years ago. - Immunization history: Last tetanus immunization: unknown. Screenin:52 Abuse screen: Denies threats or abuse. Denies injuries from another. Nutritional as6 screening: No deficits noted. Tuberculosis screening: No symptoms or risk factors identified. Fall Risk Fall in past 12 months (25 points). Total Burdick Fall Scale indicates Low Risk Score (25-44 pts). Fall prevention measures have been instituted. Side Rails Up X 2 Family Present and informed to notify staff if they need to leave bedside As available Patient and Family Educated on Fall Prevention Program and strategies. Primary Survey: 20:30 NO uncontrolled hemorrhage observed. A: The client is awake and alert. The airway is as6 patent. Breathing/Chest: Spontaneous respiratory effort, equal unlabored respirations, breath sounds clear bilaterally, regular pattern, symmetrical chest rise and fall. Circulation: No external hemorrhage present. Regular and strong central pulse, skin warm/dry/normal color. Disability Pupils are equal, round, reactive to light and accommodation. Client is alert. Exposure/Environment: A warming method has been applied: A warm blanket has been provided to the patient. 22:54 Reassessment Alertness and Airway: Awake and alert. The airway is patent. Breathing: as6 Spontaneous respiratory effort, equal unlabored respirations, breath sounds clear bilaterally, regular pattern with symmetrical chest rise and fall. Circulation: No external hemorrhage noted. Regular and strong central pulse, skin warm/dry/normal color. Disability: Pupils Pupils are equal, round, reactive to light and accomodation. Alert. Assessment: 20:30 General: Appears uncomfortable, Behavior is calm, cooperative. Pain: Complains of pain as6 in right arm and right bicep and right axilla and anterior aspect of right shoulder. Neuro: Recinos Agitation-Sedation Scale (RASS): 0 - Alert and Calm Level of Consciousness is awake, alert, obeys commands, Oriented to person, place, time, situation. Cardiovascular: JVD is absent Patient's skin is warm and dry. Respiratory: Respiratory effort is even, unlabored, Respiratory pattern is regular, symmetrical. 20:30 Musculoskeletal: Reports pain in right arm and right bicep and right axilla and as6 anterior aspect of right shoulder. Vital Signs: 20:07 Pulse 113; Resp 20; Temp 98.6(O); Pulse Ox 96% on R/A; Weight 71.67 kg; Height 5 ft. 2 tw5 in. (157.48 cm); Pain 7/10; 20:08 BP 127 / 60; tw5 21:30 BP 125 / 78; Pulse 91; Resp 18; Pulse Ox 97% ; as6 22:55 BP 128 / 61; Pulse 104; Resp 18; Pulse Ox 100% ; as6 12/25 00:26 BP 125 / 78; Pulse 84; Resp 19; Pulse Ox 99% on R/A; kd3 12/24 20:07 Body Mass Index 28.90 (71.67 kg, 157.48 cm) tw5 Dada Coma Score: 12/24 22:53 Eye Response: spontaneous(4). Verbal Response: oriented(5). Motor Response: obeys as6 commands(6). Total: 15. Trauma Score (Adult): 22:53 Eye Response: spontaneous(1); Verbal Response: oriented(1); Motor Response: obeys as6 commands(2); Systolic BP: > 89 mm Hg(4); Respiratory Rate: 10 to 29 per min(4); Winfield Score: 15; Trauma Score: 12 ED Course: 20:01 Patient arrived in ED. es 20:08 Kirk Nicole PA is PHCP. jm 20:08 Bam Lockett MD is Attending Physician. [facility] 20:08 Triage completed. tw5 20:10 April Britt, JENNIFER is Primary Nurse. kd3 20:13 Arm band placed on Patient placed in an exam room. tw5 20:41 Shoulder Right (2 View) XRAY In Process Unspecified. EDMS 20:52 Inserted saline lock: 22 gauge in left hand, using aseptic technique. as6 21:16 Head C Spine Mpr Wo Con In Process Unspecified. EDMS 22:06 Elbow Right 2 View In Process Unspecified. EDMS 22:07 Wrist Right 2 View In Process Unspecified. EDMS 22:53 Patient maintains SpO2 saturation greater than 95% on room air. Thermoregulation: warm as6 blanket given to patient. 22:54 Bed in low position. Call light in reach. Side rails up X2. Pulse ox on. NIBP on. Warm as6 blanket given. 12/25 00:05 Dave Sue MD is Referral Physician. [facility] 00:24 No provider procedures requiring assistance completed. IV discontinued, intact, kd3 bleeding controlled, No redness/swelling at site. Pressure dressing applied. Administered Medications: 12/24 20:52 Drug: morphine 4 mg Route: IVP; Infused Over: 4 mins; Site: left hand; as6 12/25 00:27 Follow up: Response: No adverse reaction; Pain is decreased kd3 12/24 20:52 Drug: Zofran (Ondansetron) 4 mg Route: IVP; Site: left hand; as6 12/25 00:27 Follow up: Response: No adverse reaction; Nausea is decreased kd3 12/24 22:40 Drug: Dilaudid (HYDROmorphone) 1 mg Route: IVP; Site: left hand; as6 12/25 00:26 Follow up: Response: No adverse reaction; Pain is decreased kd3 12/24 23:46 Drug: Dilaudid (HYDROmorphone) 1 mg Route: IVP; Site: left hand; kd3 12/25 00:25 Follow up: Response: No adverse reaction; Pain is decreased kd3 Medication: 00:25 VIS not applicable for this client. kd3 Intake: 12/24 22:53 IV: 20ml (IV Fluid); Total: 20ml. as6 Outcome: 12/25 00:05 Discharge ordered by . [facility] 00:24 Discharged to home ambulatory, with family. kd3 00:24 Condition: stable 00:24 Discharge instructions given to patient, family, Instructed on discharge instructions, follow up and referral plans. Demonstrated understanding of instructions, follow-up care, medications, Prescriptions given X 1. 00:25 Patient's length of stay was not longer than 2 hours. kd3 00:27 Patient left the ED. kd3 Signatures: Dispatcher [employer] EDMS Kirk Nicole PA PA jmm Salyer, Edna es Wood, Tiffany tw5 Shiva Mirza RN RN as6 April Britt RN RN kd3
--- NOTE | 2021-12-25 00:07 | EDPHYS ---
Physician Documentation [facility] Name: Herminia Truong Age: 66 yrs Sex: Female : 1955 Arrival Date: 12/24/2021 Time: 20:01 Bed 7 Private MD: ED Physician Bam Lockett HPI: 12/24 20:12 This 66 yrs old Female presents to ER via Ambulatory with complaints of Fall Injury. jmm 20:12 Details of fall: The patient fell from an upright position. Onset: The symptoms/episode jmm began/occurred acutely. This is a 58-year-old female with a history of diabetes mellitus, hyperlipidemia, hypertension the presents emerged department with complaints of right shoulder pain following a fall which occurred just prior to arrival. Patient states she fell off a curb falling backwards and near head. Patient denies loss consciousness.. Historical: - Allergies: 20:13 Vancomycin; tw5 - Home Meds: 12/25 00:25 Lipitor Oral [Active]; Humalog Sub-Q [Active]; kd3 - PMHx: 12/24 20:13 Diabetes - IDDM; Hyperlipidemia; Hypertension; tw5 - Immunization history:: Flu vaccine is not up to date. - Social history:: Smoking status: Patient/guardian denies using tobacco, the patient reports quitting approximately 16 years ago. - Immunization history: Last tetanus immunization: unknown. ROS: 20:12 Constitutional: Negative for fever, chills, and weight loss, Cardiovascular: Negative jmm for chest pain, palpitations, and edema, Respiratory: Negative for shortness of breath, cough, wheezing, and pleuritic chest pain. 20:12 MS/extremity: Positive for injury or acute deformity. 20:12 Neuro: Positive for headache. 20:12 All other systems are negative. Exam: 20:12 Constitutional: This is a well developed, well nourished patient who is awake, alert, jmm and in no acute distress. Head/Face: atraumatic. Eyes: EOMI, no conjunctival erythema appreciated ENT: Moist Mucus Membranes Neck: Trachea midline, Supple Chest/axilla: Normal chest wall appearance and motion. Cardiovascular: Regular rate and rhythm. No edema appreciated Respiratory: Normal respirations, no respiratory distress appreciated Abdomen/GI: Non distended, soft Back: Normal ROM Skin: General appearance color normal 20:12 Musculoskeletal/extremity: Right shoulder is diffusely tender to palpation, full right heat treat operator strength, full radial pulse, compartments soft, neurovascular intact. 20:12 Skin: Appearance: Color: normal in color. 20:12 Neuro: Orientation: is normal, Mentation: is normal, Memory: is normal. 20:12 Psych: Behavior/mood is pleasant, cooperative. Vital Signs: 20:07 Pulse 113; Resp 20; Temp 98.6(O); Pulse Ox 96% on R/A; Weight 71.67 kg; Height 5 ft. 2 tw5 in. (157.48 cm); Pain 7/10; 20:08 BP 127 / 60; tw5 21:30 BP 125 / 78; Pulse 91; Resp 18; Pulse Ox 97% ; as6 22:55 BP 128 / 61; Pulse 104; Resp 18; Pulse Ox 100% ; as6 12/25 00:26 BP 125 / 78; Pulse 84; Resp 19; Pulse Ox 99% on R/A; kd3 12/24 20:07 Body Mass Index 28.90 (71.67 kg, 157.48 cm) tw5 Dada Coma Score: 12/24 22:53 Eye Response: spontaneous(4). Verbal Response: oriented(5). Motor Response: obeys as6 commands(6). Total: 15. Trauma Score (Adult): 22:53 Eye Response: spontaneous(1); Verbal Response: oriented(1); Motor Response: obeys as6 commands(2); Systolic BP: > 89 mm Hg(4); Respiratory Rate: 10 to 29 per min(4); Dillon Score: 15; Trauma Score: 12 MDM: 20:12 Patient medically screened. [facility] 12/25 00:05 Data reviewed: vital signs, nurses notes. Counseling: I had a detailed discussion with [facility] the patient and/or guardian regarding: the historical points, exam findings, and any diagnostic results supporting the discharge/admit diagnosis, radiology results, the need for outpatient follow up, to return to the emergency department if symptoms worsen or persist or if there are any questions or concerns that arise at home. 12/24 20:14 Order name: CT Head C Spine [facility] 12/24 20:15 Order name: Shoulder Right (2 View) XRAY; Complete Time: 21:18 [facility] 12/24 20:18 Order name: Head C Spine Mpr Wo Con; Complete Time: 21:24 [facility] 12/24 22:06 Order name: Elbow Right 2 View [facility] 12/24 20:15 Order name: Saline Lock; Complete Time: 20:52 [facility] 12/24 22:07 Order name: Wrist Right 2 View EDAZ 12/24 23:28 Order name: Shoulder Immobilizer; Complete Time: 00:24 [facility] Administered Medications: 12/24 20:52 Drug: morphine 4 mg Route: IVP; Infused Over: 4 mins; Site: left hand; as6 12/25 00:27 Follow up: Response: No adverse reaction; Pain is decreased kd3 12/24 20:52 Drug: Zofran (Ondansetron) 4 mg Route: IVP; Site: left hand; as12/25 00:27 Follow up: Response: No adverse reaction; Nausea is decreased kd3 12/24 22:40 Drug: Dilaudid (HYDROmorphone) 1 mg Route: IVP; Site: left hand; as6 12/25 00:26 Follow up: Response: No adverse reaction; Pain is decreased kd3 12/24 23:46 Drug: Dilaudid (HYDROmorphone) 1 mg Route: IVP; Site: left hand; kd3 12/25 00:25 Follow up: Response: No adverse reaction; Pain is decreased kd3 Disposition: 05:27 Co-signature as Attending Physician, Bam Lockett MD. rn Disposition Summary: 12/25/21 00:05 Discharge Ordered Location: Home [facility] Condition: Stable [facility] Diagnosis - Humeral neck fracture [facility] - Acute head injury [facility] Followup: [facility] - With: Dave Sue MD - When: 2 - 3 days - Reason: Recheck today's complaints, Continuance of care, Re-evaluation by your physician Discharge Instructions: - Discharge Summary Sheet [facility] - Head Injury, Adult [facility] - Humerus Fracture Treated With Immobilization [facility] Forms: - Medication Reconciliation Form [facility] - Thank You Letter [facility] - Antibiotic Education [facility] - Prescription Opioid Use [facility] Prescriptions: - Tylenol-Codeine #3 300 mg-30 mg Oral - take 1 tablet by ORAL route every 4-6 hours; 30 tablet; Refills: 0, Product [facility] Selection Permitted Signatures: Dispatcher [employer] Kirk Carlisle PA PA jmBam Chan MD MD rn Wood, Tiffany tw5 Shiva Mirza RN RN as6 April Britt RN RN kd3 Corrections: (The following items were deleted from the chart) 12/24 22:06 20:16 Elbow Right 3 View+RAD.RAD.BRZ ordered. EDMS EDMS 22:07 20:16 Wrist Right 3 View+RAD.RAD.BRZ ordered. EDMS EDMS
[2021-12-25 00:38] VITALS: TEMP 98.6
[2021-12-25 00:43] VITALS: BP 125/78; O2SAT 99
--- NOTE | 2021-12-25 11:26 | RAD REPORT ---
EXAM DESCRIPTION: RAD - Wrist Right 2 View - 12/24/2021 10:06 pm CLINICAL HISTORY: fall Pain COMPARISON: No comparisons FINDINGS: No fracture or dislocation seen. Mild degenerative change affects the radiocarpal joint. Mild soft tissue swelling is present.
--- NOTE | 2021-12-25 11:26 | RAD REPORT ---
EXAM DESCRIPTION: RAD - Elbow Right 2 View - 12/24/2021 10:06 pm CLINICAL HISTORY: fall COMPARISON: No comparisons FINDINGS: Hardware is present in the elbow. Radial head prosthesis. No acute fracture or dislocation seen.
== END 2021-12-25 00:27 | disposition home or self-care (01) ==
LOC: ER 19:55
DX: S42.291A Other displaced fracture of upper end of right humerus, initial encounter for closed fracture (principal); W18.30XA Fall on same level, unspecified, initial encounter; Y93.89 Activity, other specified; Y92.89 Other specified places as the place of occurrence of the external cause; S09.90XA Unspecified injury of head, initial encounter; Z88.3 Allergy status to other anti-infective agents; E11.9 Type 2 diabetes mellitus without complications; E78.5 Hyperlipidemia, unspecified; I10 Essential (primary) hypertension
CPT/HCPCS: 70450; 72125; 73070; 73030; 73100; 96375; 96374; 99284; J1170 ×2; J2405

== ENCOUNTER 2022-03-23 17:13 | Emergency (ER) | payer OTHER ==
--- OUTSIDE RECORDS SUMMARY | 2022-03-23 17:17 | XMS REPORT | Continuity of Care Document ---
:1955 Author Organization [facility] t Address [address] [place] [place] [address] Care Team Providers Name Role Phone TRISTA GREWAL Primary Care Physician Unavailable CURTIS PANDEY Attending Clinician Unavailable Jaswinder Ha MD Attending Clinician Patricia Attending Clinician Unavailable Tyron Dotson Attending Clinician [phone] Tyron Dotson Attending Clinician Unavailable Curtis Pandey MD Attending Clinician Doctor Unassigned, [place] Attending Clinician Unavailable Jackson Gomes MD Attending Clinician Patricia Admitting Clinician Unavailable Tyron Dotson Admitting Clinician Unavailable Payers Payer Name Policy Type Policy Number Effective Date Expiration Date S lucy MEDICARE PART A [id number] 2009 \\T\\ B 00:00:00 [id number] 2021 00:00:00 [place]: [id number] 2009 [id number] Prisync 00:00:00 () [id number] 2007 00:00:00 Problems Condition Condition Condition Status Onset Resolution Last Treating Co mments Source Name Details Category Date Date Treatment Clinician Date Dietary Dietary Disease Active Univers B12 B12 9-13 ity of [place] [facility] Mixed Mixed Disease Active Univers hyperlipid hyperlipid 6-05 it y of emia emia 00:00: [place] 00 [facility] Branch 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 1-19 ity of mellitus mellitus 00:00: [place] with with 00 Medical diabetic diabetic Branch polyneurop polyneurop athy athy Depression Depression Disease Active 2014-07 U nivers 0-12 ity of 00:00: [place] [facility] Sinusitis Sinusitis Disease Active Uni vers 7-16 ity of 00:00: [place] [facility] Diabetic Diabetic Disease Active Unive rs arthropath arthropath 3-15 it y of y y 00:00: [place] [facility] Adhesive Adhesive Disease Active Unive rs capsulitis capsulitis 3-15 it y of of of 00:00: [place] shoulder shoulder 00 Medica l Branch Osteoarthr Osteoarthr Disease Active U nivers itis, itis, 3-15 ity of multiple multiple 00:00: [place] sites sites 00 Medical Branch Chronic Chronic Disease Active Univers pain pain 3-15 ity of syndrome syndrome 00:00: [place] [facility] Arthritis Arthritis Disease Active Uni vers 1-15 ity of 00:00: [place] 00 Medical Branch Allergic Allergic Disease Active Unive rs rhinitis rhinitis 1-15 ity of 00:00: [place] 00 Medical Branch Essential Essential Disease Active Uni vers hypertensi hypertensi 3-28 it y of on, benign on, benign 00:00: [place] [facility] Vitamin D Vitamin D Disease Active Overview: Univers deficiency deficiency 3-28 Formattin ity of 00:00: g of this [place] 00 note Medical might be Branch different from the original. 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 Univers in ty to See comments 2-30 ity of adverse 00:00: [place] reaction Medical s Branch Social History Social Habit Start Date Stop Date Quantity Comments Source Sex Assigned At [facility] Co llege of Medicine History [facility] o f Alcohol Std Drinks [place] [facility] History [facility] o f Alcohol Binge [facility] Exposure to 2022-01-30 2022-02-09 Not sure University of SARS-CoV-2 (event) 00:00:00 10:21:00 [facility] Alcohol intake 2022-01-18 2022-01-18 Current drinker Unive rsity of 00:00:00 00:00:00 of alcohol [facility] (finding) Branch Cigarettes smoked 2015-01-21 2015-01-21 Univers ity of current (pack per 00:00:00 00:00:00 [facility]) - Reported Branch Tobacco use and 2015-01-21 2015-01-21 Smokeless tobacco Un iversity of exposure 00:00:00 00:00:00 non-user [facility] Alcohol Comment 2012-09-21 2012-09-21 occasional Universit y of 00:00:00 00:00:00 [facility] History of tobacco 2005-07-10 Current smoker [facility] College of use 00:00:00 Medicine Smoking Status Start Date Stop Date Source Ex-smoker 2015-01-21 00:00:00 2015-01-21 00:00:00 Universi ty of [facility] Medications Ordered Filled Start Stop Current Ordering Indication Dosage Frequency Signature Comments Components Source Medication Medication Date Date Medication? Clinician (SIG) Name Name aliskiren Yes [id number] 150mg Take 1 Un nico (TEKTURNA) 8-03 tablet by ity of 150 mg 00:00: mouth in [place] tablet 00 the Medical morning. Branch aliskiren Yes [id number] 150mg Take 1 Un nico (TEKTURNA) 8-03 tablet by ity of 150 mg 00:00: mouth in [place] tablet 00 the Medical morning. Branch aliskiren Yes [id number] 150mg Take 1 Un nico (TEKTURNA) 8-03 tablet by ity of 150 mg 00:00: mouth in [place] tablet 00 the Medical morning. Branch traMADoL 50 Yes [id number] 50mg Take 1 Univ ers mg tablet 7-27 tablet by ity o f 00:00: mouth in [place] 00 the Medical morning Branch and 1 tablet at noon and 1 tablet in the evening. Indication s: chronic pain traMADoL 50 0 Yes [id number] 50mg Take 1 Univ ers mg tablet 7-27 tablet by ity o f 00:00: mouth in [place] 00 the Medical morning Branch and 1 tablet at noon and 1 tablet in the evening. Indication s: chronic pain traMADoL 50 Yes [id number] 50mg Take 1 Univ ers mg tablet 7-27 tablet by ity o f 00:00: mouth in [place] 00 the Medical morning Branch and 1 tablet at noon and 1 tablet in the evening. Indication s: chronic pain methocarbam Yes [id number] 500mg Take 1 Univers oL 7-19 tablet by ity of (ROBAXIN) 00:00: mouth 2 [place] 500 mg 00 (two) Medical tablet times Branch daily as needed for Pain (scale 4-6) or Pain (scale 7-10). methocarbam Yes [id number] 500mg Take 1 Univers oL 7-19 tablet by ity of (ROBAXIN) 00:00: mouth 2 [place] 500 mg 00 (two) Medical tablet times Branch daily as needed for Pain (scale 4-6) or Pain (scale 7-10). methocarbam Yes [id number] 500mg Take 1 Univers oL 7-19 tablet by ity of (ROBAXIN) 00:00: mouth 2 [place] 500 mg 00 (two) Medical tablet times Branch daily as needed for Pain (scale 4-6) or Pain (scale 7-10). methocarbam Yes [id number] 750mg Take 1.5 Univers oL 2-08 tablets by ity of (ROBAXIN) 00:00: mouth 2 [place] 500 mg 00 (two) Medical tablet times Branch daily. methocarbam 2021-0 Yes [id number] 750mg Take 1.5 Univers oL 2-08 tablets by ity of (ROBAXIN) 00:00: mouth 2 [place] 500 mg 00 (two) Medical tablet times Branch daily. methocarbam 0 Yes [id number] 750mg Take 1.5 Univers oL 2-08 tablets by ity of (ROBAXIN) 00:00: mouth 2 [place] 500 mg 00 (two) Medical tablet times Branch daily. insulin 2020-07 Yes [id number] 26U inject 26 U nivers degludec 2-13 Units ity of 200 unit/mL 00:00: under the [place] (3 mL) In 00 skin Medical daily. Branch atorvastati 2020-07 Yes [id number] 40mg Take 1 Univers n 40 mg 2-13 tablet by ity of tablet 00:00: mouth at [place] 00 bedtime. Medical Branch hydroCHLORO 2020-07 Yes [id number] 25mg Take 1 U nivers thiazide 25 2-13 tablet by ity of mg tablet 00:00: mouth [place] 00 daily. Medical Branch SERTraline 2020-07 Yes [id number] 100mg Take 1 Univers 100 mg 2-13 tablet by ity of tablet 00:00: mouth [place] 00 daily. Medical Branch insulin 2020-07 Yes [id number] 26U inject 26 U nivers degludec 2-13 Units ity of 200 unit/mL 00:00: [place] ([facility] daily[facility] Branch atorvastati 2020-07 Yes [id number] 40mg Take 1 Univers n 40 mg 2-13 tablet by ity of tablet 00:00: mouth at [place] 00 bedtime. Medical Branch hydroCHLORO 2020-07 Yes [id number] 25mg Take 1 U nivers thiazide 25 2-13 tablet by ity of mg tablet 00:00: mouth [place] 00 daily. Medical Branch SERTraline 2020-07 Yes [id number] 100mg Take 1 Univers 100 mg 2-13 tablet by ity of tablet 00:00: mouth [place] 00 daily. Medical Branch insulin 2020-07 Yes [id number] 26U inject 26 U nivers degludec 2-13 Units ity of 200 unit/mL 00:00: under the [place] (3 mL[facility] daily[facility] Branch atorvastati 2020-07 Yes [id number] 40mg Take 1 Univers n 40 mg 2-13 tablet by ity of tablet 00:00: mouth at [place] 00 bedtime. Medical Branch hydroCHLORO 2020-07 Yes [id number] 25mg Take 1 U nivers thiazide 25 2-13 tablet by ity of mg tablet 00:00: mouth 00 daily. Medical Branch SERTraline 2020-07 Yes [id number] 100mg Take 1 Univers 100 mg 2-13 tablet by ity of tablet 00:00: mouth daily. 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) Misc Blood-Gluco 2020-07 Yes Change Univ ers se 2-07 every 90 ity of Transmitter 00:00: days (DEXCOM G6 00 Medical TRANSMITTER Branch ) [facility]min Blood-Gluco 2020-07 Yes Change Univ ers se Sensor 2-07 sensor ity of (DEXCOM G6 00:00: every 10 [place] as SENSOR) Medical Jazmin Branch VITAMIN C 2020-07 Yes 1 daily Unive rs 500 MG ORAL 07-11 ity of TAB 13:56: [place] 05 Medical Branch MULTI-VITAM 2020-07 Yes 1 daily Uni vers IN ORAL 07-11 ity of 13:56: [address] ASPIRIN 81 2020-07 Yes once daily U nivers MG ORAL 07-11 ity of CHEW 13:56: [address] cholecalcif 2020-07 Yes 1000U Take 1,000 Univers christina, 1-02 Units by ity of vitamin D3, 13:56: mouth [place] (VITAMIN 05 daily. Medical D3) 1,000 Branch unit tablet CYANOCOBALA 2020-07 Yes Take by Uni vers MIN, 07-11 mouth ity of VITAMIN 13:56: daily. [place] B-12, Medical (VITAMIN Branch B-12 ORAL) Dexlansopra 2020-07 Yes Take by Uni vers zole 02 mouth. ity of (DEXILANT) 13:56: [place] 60 mg 05 Medical capsule Branch VITAMIN C 2020-07 Yes 1 daily Unive rs 500 MG ORAL 07-11 ity of TAB 13:56: [address] MULTI-VITAM 2020-07 Yes 1 daily Uni vers IN ORAL 07-11 ity of 13:56: [address] ASPIRIN 81 2020-07 Yes once daily U nivers MG ORAL 07-11 ity of CHEW 13:56: [address] cholecalcif 2020-07 Yes 1000U Take 1,000 Univers christina, 1-02 Units by ity of vitamin D3, 13:56: mouth [place] (VITAMIN 05 daily. Medical D3) 1,000 Branch unit tablet CYANOCOBALA 2020-07 Yes Take by Uni vers MIN, 07-11 mouth ity of VITAMIN 13:56: daily. [place] B-, Medical (VITAMIN Branch B-12 ORAL) Dexlansopra 2020-07 Yes Take by Uni vers zole 02 mouth. ity of (DEXILANT) 13:56: [place] 60 mg 05 Medical capsule Branch VITAMIN C 2020-07 Yes 1 daily Unive rs 500 MG ORAL 07-11 ity of TAB 13:56: [address] MULTI-VITAM 2020-07 Yes 1 daily Uni vers IN ORAL 07-11 ity of 13:56: [address] ASPIRIN 81 2020-07 Yes once daily U nivers MG ORAL -02 ity of CHEW 13:56: [address] cholecalcif 2020-07 Yes 1000U Take 1,000 Univers christina, 1-02 Units by ity of vitamin D3, 13:56: mouth [place] (VITAMIN 05 daily. Medical D3) 1,000 Branch unit tablet CYANOCOBALA 2020-07 Yes Take by Uni vers MIN, -02 mouth ity of VITAMIN 13:56: daily. [place] B-12, 05 Medical (VITAMIN Branch B-12 ORAL) Dexlansopra 2020-07 Yes Take by Uni vers zole 02 mouth. ity of (DEXILANT) 13:56: [place] 60 mg 05 Medical capsule Branch insulin Yes [id number] inject Univ ers lispro 9-13 under the ity of (HUMALOG 00:00: skin 3 [place] KWIKPEN 00 (three) Medical INSULIN) times Branch 100 unit/mL daily pen before injector meals, est 40 units/day. glucagon Yes [id number] 1mg inject 1 Univers mg/0.2 mL 9-13 mg under ity of AtIn 00:00: the skin [place] 00 as needed Medical for Other. Branch insulin Yes [id number] inject Univ ers lispro 9-13 under the ity of (HUMALOG 00:00: skin 3 [place] KWIKPEN 00 (three) Medical INSULIN) times Branch 100 unit/mL daily pen before injector meals, est 40 units/day. glucagon Yes [id number] 1mg inject 1 Univers mg/0.2 mL 9-13 mg under ity of AtIn 00:00: the skin [place] 00 as needed Medical for Other. Branch insulin Yes [id number] inject Univ ers lispro 9-13 under the ity of (HUMALOG 00:00: skin 3 [place] KWIKPEN 00 (three) Medical INSULIN) times Branch 100 unit/mL daily pen before injector meals, est 40 units/day. glucagon Yes [id number] 1mg inject 1 Univers mg/0.2 mL 9-13 mg under ity of AtIn 00:00: the skin [place] 00 as needed Medical for Other. Branch DICLOFENAC Yes [id number] APPLY ONE Univers EPOLAMINE 8-31 PATCH TO ity of 1.3 % patch 00:00: [place] 00 AREA TWICE Medical A DAY Branch NEEDED FOR PAIN (SCALE 1-3) OR PAIN (SCALE 4-6) (DO NOT APPLY TO DAMAGED SKIN, DO NOT WEAR WHILE BATHING OR SHOWERING, WASH HANDS AFTER HANDLING) DICLOFENAC Yes [id number] APPLY GEL Univers SODIUM 1 % 8-31 TO ity of gel 00:00: AFFECTED [place] AREA(S) Medical EVERY 6 Branch HOURS NEEDED FOR PAIN (SCALE 4-6) OR PAIN (SCALE 7-10) -(USE THE ENCLOSED DOSING CARD AND PATIENT INSTRUCTIO N SHEET FOR PROPER DOSING GUIDANCE OR DIRECTED BY YOUR DOCTOR. TOTAL AMOUNT USED EACH DAY SHOULD NOT EXCEED 32 GRAMS) DICLOFENAC Yes [id number] APPLY ONE Univers EPOLAMINE 8-31 PATCH TO ity of 1.3 % patch 00:00: [place] 00 AREA TWICE Medical A DAY Branch NEEDED FOR PAIN (SCALE 1-3) OR PAIN (SCALE 4-6) (DO NOT APPLY TO DAMAGED SKIN, DO NOT WEAR WHILE BATHING OR SHOWERING, WASH HANDS AFTER HANDLING) DICLOFENAC Yes [id number] APPLY GEL Univers SODIUM 1 % 8-31 TO ity of gel 00:00: AFFECTED [place] AREA(S) Medical EVERY 6 Branch HOURS NEEDED FOR PAIN (SCALE 4-6) OR PAIN (SCALE 7-10) -(USE THE ENCLOSED DOSING CARD AND PATIENT INSTRUCTIO N SHEET FOR PROPER DOSING GUIDANCE OR DIRECTED BY YOUR DOCTOR. TOTAL AMOUNT USED EACH DAY SHOULD NOT EXCEED 32 GRAMS) DICLOFENAC Yes [id number] APPLY ONE Univers EPOLAMINE 8-31 PATCH TO ity of 1.3 % patch 00:00: [place]FFECT[place] 00 AREA TWICE Medical A DAY Branch NEEDED FOR PAIN (SCALE 1-3) OR PAIN (SCALE 4-6) (DO NOT APPLY TO DAMAGED SKIN, DO NOT WEAR WHILE BATHING OR SHOWERING, WASH HANDS AFTER HANDLING) DICLOFENAC Yes [id number] APPLY GEL Univers SODIUM 1 % 8-31 TO ity of gel 00:00: AFFECTED [place] AREA(S) Medical EVERY 6 Branch HOURS NEEDED FOR PAIN (SCALE 4-6) OR PAIN (SCALE 7-10) -(USE THE ENCLOSED DOSING CARD AND PATIENT INSTRUCTIO N SHEET FOR PROPER DOSING GUIDANCE OR DIRECTED BY YOUR DOCTOR. TOTAL AMOUNT USED EACH DAY SHOULD NOT EXCEED 32 GRAMS) diltiazem Yes [id number] 120mg Take 1 Un nico 120 mg 7-09 tablet by ity of tablet 00:00: mouth 3 [place] 00 (three) Medical times Branch daily. Insulin Yes [id number] 4 (four) Un n[place], 7-09 times ity of Disposable, 00:00: daily. [place] (BD 00 Medical ULTRAFINE Branch III MINI PEN) 31 gauge x 3/16" Ndle diltiazem Yes [id number] 120mg Take 1 Un nico 120 mg 7-09 tablet by ity of tablet 00:00: mouth 3 [place] 00 (three) Medical times Branch daily. Insulin Yes [id number] 4 (four) Un n[place], 7-09 times ity of Disposable, 00:00: daily. [place] (BD 00 Medical ULTRAFINE Branch III MINI PEN) 31 gauge x 3/16" Ndle diltiazem Yes [id number] 120mg Take 1 Un nico 120 mg 7-09 tablet by ity of tablet 00:00: mouth 3 00 (three) Medical times Branch daily. Insulin Yes [id number] 4 (four) Un n[place], 7-09 times ity of Disposable, 00:00: daily. [place] (BD 00 Medical ULTRAFINE Branch III MINI PEN) 31 gauge x 3/16" Ndle aliskiren 2020-2021- No [id number] 150mg Take 1 U nivers (TEKTURNA) 01-15- tablet by ity of 150 mg 00:00: 00:00 mouth [place] tablet 00 :00 daily. Medical Branch aliskiren 2020-2021- No [id number] 150mg Take 1 U nivers (TEKTURNA) 01-15- tablet by ity of 150 mg 00:00: 00:00 mouth [place] tablet 00 :00 daily. Medical Branch HYDROcodone 2020-0 Yes 1{tbl} Take 1 Univers -acetaminop 3-11 tablet by ity of hen (NORCO) 00:00: mouth 2 [place] as 5-325 mg 00 (two) Medical tablet times Branch daily. HYDROcodone 2019-0 Yes [id number] 1{tbl} Take 1 Univers -acetaminop 3-11 tablet by ity of hen (NORCO) 00:00: mouth 2 [place] as 5-325 mg 00 (two) Medical tablet times Branch daily. HYDROcodone Yes [id number] 1{tbl} Take 1 Univers -acetaminop 3-11 tablet by nickie (NORCO) 00:00: mouth 2 [place] as 5-325 mg 00 (two) Medical tablet times Branch daily. Multiple 2018-07 Yes Take by [facility] Vitamins-Mi 2-16 mouth. Colleg e nerals 15:50: of (WOMENS 50+ 00 Medicin MULTI e VITAMIN/MIN OR) Ascorbic 2018-07 Yes Take by [facility] Acid 2-16 mouth. [facility] (VITAMIN C) 15:50: of 500 MG CAPS 00 Medicin e Dexlansopra 2018-07 Yes Take by [facility] zole 60 MG 2-16 mouth. [facility] CPDR 15:50: of 00 Medicin e Cyanocobala 2018-07 Yes Take by [place] min 2-16 mouth. [facility] (VITAMIN 15:50: of B-12) 1000 00 Medicin MCG TABS e Multiple 2018-07 Yes Take by [facility] Vitamins-Mi 2-16 [facility]: of (WOMENS 50+ 00 Medicin MULTI e VITAMIN/MIN OR) Ascorbic 2018-07 Yes Take by [facility] Acid 2-16 mouth. [place] (VITAMIN C) 15:50: of 500 MG CAPS 00 Medicin e Dexlansopra 2018-07 Yes Take by [place] [facility] zole 60 MG 2-16 mouth. [facility] CPDR 15:50: of 00 Medicin e Cyanocobala 2018-07 Yes Take by [place] [facility] min 2-16 mouth. [place] (VITAMIN 15:50: of B-12) 1000 00 Medicin MCG TABS e Insulin 2018-07 Yes 26U Inject 26 [facility] Degludec 2-02 Units into Colle ge 100 UNIT/ML 00:00: the skin. o f SOPN 00 Medicin e Insulin 2018-07 Yes 26U Inject 26 [facility] Degludec 2-02 Units into Colle ge 100 UNIT/ML 00:00: the skin. o f SOPN 00 Medicin e Insulin Yes inject [facility] Lispro, 1 5-20 under the Colle ge Unit Dial, 00:00: skin 3 of (HUMALOG 00 (three) Medicin KWIKPEN) times e 100 UNIT/ML daily SOPN before meals, est 35 units/day. Insulin 2019-0 Yes inject [facility] Lispro, 1 5-20 under the Colle ge Unit Dial, 00:00: skin 3 of (HUMALOG 00 (three) Medicin KWIKPEN) times e 100 UNIT/ML daily SOPN before meals, est 35 units/day. Diclofenac Yes Place onto [facility] Epolamine 2-11 the skin. Colle ge 1.3 % PTCH 00:00: of 00 Medicin e Diclofenac Yes Apply [facility] Sodium 1 % 2-11 topically. Col lege GEL 00:00: of Medicin e Diclofenac Yes Place onto [facility] Epolamine 2-11 the skin. Colle ge 1.3 % PTCH 00:00: of 00 Medicin e Diclofenac Yes Apply [facility] Sodium 1 % 2-11 topically. Col lege GEL 00:00: of 00 Medicin e codeine-gua Yes [id number] 5mL Take 5 mL Univers ifenesin 2-04 by mouth ity of (CHERATUSSI 00:00: every 6 [place] as N AC) 00 (six) Medical 10-100 mg/5 hours as Bran ch mL solution needed for Cough. codeine-gua Yes [id number] 5mL Take 5 mL Univers ifenesin 2-04 by mouth ity of (CHERATUSSI 00:00: every 6 [place] as N AC) 00 (six) Medical 10-100 mg/5 hours as Bran ch mL solution needed for Cough. codeine-gua Yes [id number] 5mL Take 5 mL Univers ifenesin 2-04 by mouth ity of (CHERATUSSI 00:00: every 6 [place] as N AC) 00 (six) Medical 10-100 mg/5 hours as Bran ch mL solution needed for Cough. Aliskiren Yes 150mg Take 150 [place] [facility] Fumarate 2-04 mg by College 150 MG TABS 00:00: mouth. of 00 Medicin e Glucagon, Yes Inject as [place] rDNA, 2-04 directed College (GLUCAGON 00:00: to correct of EMERGENCY) 00 hypoglycem Med icin 1 MG KIT ia. e guaiFENesin 2018-0 Yes 5mL Take 5 mL [facility] -Codeine 2-04 by mouth. Colleg e 100-10 00:00: of MG/5ML SOLN 00 Medicin e Aliskiren Yes 150mg Take 150 [place] [facility] Fumarate 2-04 mg by College 150 MG TABS 00:00: mouth. of Medicin e Glucagon, Yes Inject as [place] [facility] rDNA, 2-04 directed College (GLUCAGON 00:00: to correct of EMERGENCY) 00 hypoglycem Med icin 1 MG KIT ia. e guaiFENesin Yes 5mL Take 5 mL [facility] -Codeine 2-04 by mouth. Colleg e 100-10 00:00: of MG/5ML SOLN Medicin e Glucose Yes Use 6 per [facility] Blood 2- day to College Strips 00:00: check of (FREESTYLE 00 blood Medicin TEST glucose. e STRIPS) Glucose Yes Use 6 per [facility] Blood 08-28 day to College Strips 00:00: check of (FREESTYLE 00 blood Medicin TEST glucose. e STRIPS) hydrochloro Yes 25mg Take 25 mg [facility] thiazide 2-11 by mouth. Colleg e (HYDRODIURI 00:00: of L) 25 MG 00 Medicin tablet e Cholecalcif 0 Yes 5000U 5,000 [facility] christina 50 MCG 2-11 Units. Colleg e (1999) 00:00: of CAPS Medicin e hydrochloro 0 Yes 25mg Take 25 mg [facility] thiazide 2-11 by mouth. Colleg e (HYDRODIURI 00:00: of L) 25 MG 00 Medicin tablet e Cholecalcif 2017-0 Yes 5000U 5,000 [facility] christina 50 MCG 2-11 Units. Colleg e (1999) 00:00: of CAPS Medicin e aspirin EC 2014-07 Yes Take by [facility] 81 MG 0-23 mouth. College tablet 00:00: of 00 Medicin e atorvastati 2014-07 Yes 40mg Take 40 mg [facility] n (LIPITOR) 0-23 by mouth. Col lege 40 MG 00:00: of tablet 00 Medicin e sertraline 2014-07 Yes 100mg Take 100 [facility] (ZOLOFT) 0-23 mg by College 100 MG 00:00: mouth. of tablet Medicin e aspirin EC 2014-07 Yes Take by [facility] 81 MG 0-23 mouth. College tablet 00:00: of 00 Medicin e atorvastati 2014-07 Yes 40mg Take 40 mg [facility] n (LIPITOR) 0-23 by mouth. Col lege 40 MG 00:00: of tablet 00 Medicin e sertraline 2014-07 Yes 100mg Take 100 [facility] (ZOLOFT) 0-23 mg by College 100 MG 00:00: mouth. of tablet 00 Medicin e acetone, Yes [id number] Use as Uni vers urine, test 7-13 directed ity of (KETONE 00:00: as needed [place] URINE TEST) 00 to check Medi arlyn strip for Branch ketones acetone, Yes [id number] Use as Uni vers urine, test 7-13 directed ity of (KETONE 00:00: as needed [place] URINE TEST) 00 to check Medi arlyn strip for Branch ketones acetone, Yes [id number] Use as Uni vers urine, test 713 directed ity of (KETONE 00:00: as needed [place] URINE TEST) 00 to check Medi arlyn strip for Branch ketones Acetone, Yes Use as [facility] Urine, Test 7 directed Rhonda ege (RELION 00:00: as needed of KETONE) 00 to check Medicin STRP for e ketones Acetone, Yes Use as [facility] Urine, Test 7-13 directed Rhonda ege (RELION 00:00: as needed of KETONE) 00 to check Medicin STRP for e ketones Immunizations Ordered Filled Immunization Date Status Comments [facility] e Immunization Name Name Influenza Virus 2016-06-06 Completed Universit y of Vaccine Quad IM 3+ 00:00:00 [facility] Influenza Virus 2016-06-06 Completed Universit y of Vaccine Quad IM 3+ 00:00:00 [facility] Influenza Virus 2016-06-06 Completed Universit y of Vaccine Quad IM 3+ 00:00:00 [facility] Influenza Virus 2013-04-25 Completed Universit y of Vaccine (3+ yrs) 00:00:00 [facility] [facility] Influenza Virus 2013-04-25 Completed Universit y of Vaccine (3+ yrs) 00:00:00 [facility] [facility] Influenza Virus 2013-04-25 Completed Universit y of Vaccine (3+ yrs) 00:00:00 [facility] Influenza Virus 2012-07-24 Completed Universit y of Vaccine 00:00:00 [facility] Influenza Virus 2012-07-24 Completed Universit y of Vaccine 00:00:00 [facility] Influenza Virus 2012-07-24 Completed Universit y of Vaccine 00:00:00 [facility] Vital Signs Vital Name Observation Time Observation Value Comments Source Systolic blood 2022-02-09 15:38:00 100 mm[Hg] Univer sity of pressure [facility] Diastolic blood 2022-02-09 15:38:00 58 mm[Hg] Unive rsity of [facility] Heart rate 2022-02-09 15:38:00 90 /min Universi ty of [facility] Body temperature 2022-02-09 15:38:00 36.56 Jeny [facility] ersity of [facility] Respiratory rate 2022-02-09 15:38:00 18 /min Univ ersity of [facility] Body height 2022-02-09 15:38:00 157.5 cm Universi ty [facility] Body weight 2022-02-09 15:38:00 72.031 kg Universi ty [facility] [facility] BMI 2022-02-09 15:38:00 29.04 kg/m2 [facility] Oxygen saturation in 2022-02-09 15:38:00 96 /min r/a [facility] Arterial blood by [facility] Pulse oximetry Branch Systolic blood 2020-01-29 18:45:00 122 mm[Hg] [facility] Medicine Diastolic blood 2020-01-29 18:45:00 71 mm[Hg] [facility] Heart rate 2020-01-29 18:45:00 89 /min [facility] Body temperature 2020-01-29 18:45:00 37 [facility] Body height 2020-01-29 18:45:00 154.9 cm [facility] Body weight 2020-01-29 18:45:00 73.483 kg [facility] BMI 2020-01-29 18:45:00 30.61 kg/m2 [facility] Systolic blood 2020-01-29 18:45:00 122 mm[Hg] [facility] Medicine Diastolic blood 2020-01-29 18:45:00 71 mm[Hg] [facility] Heart rate 2020-01-29 18:45:00 89 /min [facility] Medicine Body temperature 2020-01-29 18:45:00 37 [facility] Body height 2020-01-29 18:45:[address] [facility] Medicine Body weight 2020-01-29 18:45:[address] [facility] Medicine BMI 2020-01-29 18:45:00 30.61 kg/m2 [facility] ol[facility] of [facility] Systolic blood 2019-08-05 16:14:00 119 mm[Hg] [facility] of pressure Medicine Diastolic blood 2019-08-05 16:14:00 70 mm[Hg] [facility] of pressure Medicine Heart rate 2019-08-05 16:14:00 78 /min [facility] ollege of [facility] Body temperature 2019-08-05 16:14:00 36.61 [facility] Body height 2019-08-05 16:14:[address] [facility] ollege of [facility] Body weight 2019-08-05 16:14:[address] [facility] BMI 2019-08-05 16:14:00 30.99 [facility]2 [facility] Systolic blood 2019-08-05 16:14:00 119 mm[Hg] [facility] of pressure Medicine Diastolic blood 2019-08-05 16:14:00 70 mm[Hg] [facility] of pressure Medicine Heart rate 2019-08-05 16:14:00 78 /min [facility] ollege of [facility] Body temperature 2019-08-05 16:14:00 36.61 [facility] Body height 2019-08-05 16:14:[address] [facility] Medicine Body weight 2019-08-05 16:14:[address] [facility] BMI 2019-08-05 16:14:00 30.99 kg/m2 [facility] Procedures Procedure Date / Time Performed Performing Clinician Sour e POCT HEMOGLOBIN A1C 2022-02-09 00:00:00 Jaswinder Ha [facility] Branch Plan of Care Planned Activity Planned Date Details Comments Source Future Scheduled HEPATITIS C SCREENING [employer] [...] Medi cine SCREENING] Future Scheduled PNEUMOVAX >=65 [facility] Co llege Test (PPSV23) [code = of Medicine PNEUMOVAX >=65 (PPSV23)] Future Scheduled PREVNAR >= 65 (PCV13) [employer] Test [code = PREVNAR >= 65 of Med icine (PCV13)] Future Scheduled FLU VACCINE > 6 MONTHS [employer] Test [code = FLU VACCINE > of Med icine 6 MONTHS] Future Scheduled CBC W/AUTO DIFF WITH Ordered: [employer] Test PLATELETS [code = 01/29/2020 of Medicin e 90254-4] Future Scheduled COMPREHENSIVE Ordered: [facility] Col [facility]ge Test METABOLIC PANEL [code 01/29/2020 of Med icine = 52999-3] Future Scheduled PROTIME & PTT [code = Ordered: [employer] [facility] NOCPT] 01/29/2020 of Medicine Future Scheduled COLON CANCER [facility] Rhonda [employer]ge Test SCREENING: COLONOSCOPY of Me johnie [code = COLON CANCER SCREENING: COLONOSCOPY] Future Scheduled MAMMOGRAM ANNUAL [code [employer] Test = MAMMOGRAM ANNUAL] of Medic ine Future Scheduled TETANUS SHOT (ADULT) [employer] [facility] [code = TETANUS SHOT of Medi cine (ADULT)] Future Scheduled Diabetic foot [facility] Col [employer]ge Test examination of Medicine (regime/therapy) [code = 606051144] Future Scheduled ANNUAL DIABETIC [facility] C ollege Test RETINOPATHY SCREENING [...] Medi cine SCREENING] Future Scheduled PNEUMOVAX >=65 [facility] Co [facility]lege Test (PPSV23) [code = of Medicine PNEUMOVAX >=65 (PPSV23)] Future Scheduled FLU VACCINE > 6 MONTHS [employer] Test [code = FLU VACCINE > of Med icine 6 MONTHS] Future Scheduled COLON CANCER [facility] [employer] Test SCREENING: COLONOSCOPY of Me jett [code = COLON CANCER SCREENING: COLONOSCOPY] Future Scheduled MAMMOGRAM ANNUAL [code B [facility] Test = MAMMOGRAM ANNUAL] of Medic ine Future Scheduled TETANUS SHOT (ADULT) [facility] College Test [code = TETANUS SHOT of Medi cine (ADULT)] Future Scheduled BMI FOLLOW UP PLAN [facility] r [facility] Test [code = BMI FOLLOW UP of Med icine PLAN] Encounters Start End Encounter Admission Attending Care Care Encounter Source Date/Time Date/Time Type Type Clinicians Facility Department ID 2022-03-21 2022-03-21 Outpatient R KATHERIN [facility] [id number] [facility] 15:30:00 15:30:00 [facility]-21 2022-03-21 Telephone [facility] [id number] Univers 00:00:00 00:00:00 [facility] 350.1.13.10 [place] [id number] Nh dical 220 Branch 2022-02-21 2022-02-21 Outpatient Shen AO AO [id number] Franny 00:00:00 00:00:00 Sole [id number] [facility] 2022-02-21 2022-02-21 Outpatient ISRA Dotson AO [id number] 2-1 00:00:00 00:00:00 Tyron Hanson [id number] 2022-02-09 2022-02-09 Office [facility] [id number] Univers 11:00:00 12:22:57 Visit Jaswinder Amaro PRIMARY 350.1.13.10 [place] [id number] Me dical 220 Branch 2022-01-17 2022-01-17 Outpatient FOG_Dunn_Wa AOSM AOSM [id number] Franny 00:00:00 00:00:00 Sole [id number] [facility] 2022-01-17 2022-01-17 Outpatient Mauri AOSM AOSM [id number] [id number] 00:00:00 00:00:00 Tyron Margie [id number] 2022-01-08 2022-01-08 Outpatient FOG_Dunn_Wa AOSM AOSM [id number] Franny 02:10:00 02:10:00 Sole [id number] [facility] 2022-01-03 2022-01-03 Outpatient FOG_Dunn_Wa AOSM AOSM [id number] Franny 11:53:00 11:53:00 Sole [id number] [facility] e 2022-01-03 2022-01-03 Outpatient Mauri AOBRIAN AOSM [id number] e-f 00:00:00 00:00:00 Tyron Margie [id number] 2021-12-27 2021-12-27 Emergency LARISSA Dotson, HCATO HCATO [id number] [facility] 09:38:00 11:09:00 Tyron [id number] [facility] 2021-12-27 2021-12-27 Emergency LARISSA Dotson, HCATO ANDI [id number] [facility] 09:38:00 11:09:00 Tyorn 17 [facility] 2021-12-27 2021-12-27 Outpatient FOG_Dunn_Wa AOSM AOSM [id number] Franny 01:37:00 01:37:00 Sole [id number] [facility] 2021-12-27 2021-12-27 Outpatient FOG_Dunn_Wa AOSM AOSM [id number] Franny 01:37:00 01:37:00 Sole [id number] [facility] Sports Medicin e 2020-07-22 2020-07-22 [facility] Katherin [facility] 1.2.840.114 [id number] 14:12:24 15:24:24 Visit Curtis NAVASPEC 350.1.13.10 IALTY 4.2.7.2.686 [place] [id number] [facility] 2020-07-22 2020-07-22 Orders Doctor JONES 1.2.840.114 [id number] 00:00:00 00:00:00 Only Unassigned, DMITRIY 350.1.13.10 [facility] 4.2.7.2.686 [id number] 2020-01-29 2020-01-29 Office Jackson GomesM [id number] 12:17:03 15:03:46 Visit Akilah-Ashley AMBULATOR 350.1.13.21 Y 0.2.7.2.686 [id number] 2020-01-29 2020-01-29 Office Jackson Gomes BCM [id number] [facility] 12:17:03 15:03:46 Visit Akilah-Ashley AMBULATOR 350.1.13.21 College Y 0.2.7.2.686 of [id number] Medi tristan 800 e 2019-08-05 2019-08-05 Office Mick Gomes BCM 1.2.840.114 [id number] 09:52:58 12:43:04 Visit Marilee AMBULATOR 350.1.13.21 Y 0.2.7.2.686 [id number] 800 2019-08-05 2019-08-05 Office Mick Gomes BCM 1.2.840.114 [id number] [facility] 09:52:58 12:43:04 Visit Marilee AMBULATOR 350.1.13.21 College Y 0.2.7.2.686 of [id number] [facility] tristan 800 e Results Test Description Test Time Test Comments Results Result Comments Source POCT HEMOGLOBIN A1C TEST 2022-02-09 15:40:00 Test Item Value Reference Range Interpretation Comme nts POCT HBA1C (test code = 4548-4) 6.6 % 4-6 A Lab Interpretation (test code = 13627-1) [facility]normal [facility] [id number] 15:40:00 Test Item Value Reference Range Interpretation Comments POCT HBA1C (test code = 4548-4) 6.6 % 4-6 A Lab Interpretation (test code = Abnormal 33533-4) [facility]- XR HUMERUS 2 + V [id number] 07:06:00 [facility] : 1955 Sex: F Patient Name: TALIB MARKS Unit No: [id number] EXAMS: CPT CODE: [id number] XR HUMERUS 2 + V RT [address] Right shoulder 2 views COMMENT: There is a comminuted fracture of the proximal humerus with an oblique humeral neck fracture with impaction and a greater tuberosity fracture. Degenerative change is noted in the glenohumeral joint. at 0706 Reported and signed by: Yash Delgado MD CC: Tyron Dotson MD Technologist: Kristen Gamboa RT.(R) Transcribed D/ (07) tCHINORCassyL [facility] NAME: TALIB MARKS [address] [facility] PHYS: Tyron Tiwari MD : 1955 AGE: 66 SEX: F [place], [place] [address] LOC: KIANA PHONE #: [phone] EXAM DATE: 12/27/2021 STATUS: DEP ER FAX #: [phone] RAD #: D/C DT PAGE 1 Signed Report Patient Name: TALIB MARKS Unit No: [id number] EXAMS: CPT CODE: [id number] XR HUMERUS 2 + V RT 18375 (Continued) Orig Print D/T: S: 12/28/2021 (0709) [facility] NAME: TALIB MARKS [address] [facility] PHYS: Tyron Tiwari MD : 1955 AGE: 66 SEX: F [place], [place] [address] LOC: KIANA PHONE #: [phone] EXAM DATE: 12/27/2021 STATUS: DEP ER FAX #: [phone] RAD #: D/C DT PAGE 2 Signed Report
[2022-03-23 19:13] LABS: Absolute Lymphocytes (CBC) 1.2 K/uL (0.7-4.9); Hematocrit 40.5 % (36.0-45.0); Lymphocytes % 11.8 % (15.3-44.8); MCV 94.9 fL (80-100); MPV 7.5 fL (7.6-11.3); RBC Red Blood Cell Count 4.27 M/uL (3.86-4.86)
[2022-03-23 19:33] LABS: Magnesium 1.9 mg/dL (1.8-2.4); Potassium 3.9 mmol/L (3.5-5.1); Troponin High Sensitivity 8.3 pg/mL (<58.9)
--- NOTE | 2022-03-23 19:51 | RAD REPORT ---
EXAM DESCRIPTION: RAD - Chest Single View - 03/23/2022 7:14 pm CLINICAL HISTORY: CHEST PAIN COMPARISON: Chest Pa And Lat (2 Views) dated 03/08/2021; CHEST SINGLE VIEW dated 05/09/2015; ABDOMEN 1 VIEW KUB dated 05/02/2015; CHEST SINGLE VIEW dated 02/03/2010 FINDINGS: Lines: None. Lungs: No evidence of edema or pneumonia. Pleural: No significant pleural effusions or pneumothorax. Cardiac: The heart size is within normal limits. Mediastinum: Within normal limits. Bones: No acute fractures. Other: None IMPRESSION: No acute cardiopulmonary disease.
[2022-03-23 22:03] LABS: Urine Blood Negative (Negative); Urine Glucose Negative (Negative); Urine Protein Negative (Negative); Urine Specific Gravity 1.015 (1.005-1.030); Urine pH 7.5 (5.0-7.0)
--- NOTE | 2022-03-23 22:09 | RAD REPORT ---
EXAM DESCRIPTION: CT - Chest For Pe Angio - 03/23/2022 9:50 pm CLINICAL HISTORY: chest pain, dyspnea, elevated dd COMPARISON: No comparisonsNo comparisons TECHNIQUE: Dynamically enhanced axial 3 mm thick images of the chest were obtained during administra tion of <100> mL Isovue 370 IV contrast. Coronal and oblique reconstruction images were generated and reviewed. Exam utilizes a protocol for optimal evaluation of pulmonary arterial tree. Maximum intensity projections 3D imaging was utilized All CT scans are performed using dose optimization technique as appropriate and may include automated exposure control or mA/KV adjustment according to patient size. FINDINGS: Chest Wall: No suspicious thyroid nodules or pathologic lymphadenopathy. Lungs: No acute abnormality. Pleura: No significant effusions or pneumothorax. Mediastinum/sumeet: No pathologic lymphadenopathy. Diffusely thickened esophagus. Pulmonary arteries/Aorta: No filling defect identified. No aortic aneurysm. Heart: No significant pericardial effusion. Normal heart size. Coronary artery calcifications. Upper abdomen: Bilateral adrenal nodules which are statistically benign . Bones: No acute abnormality. Chronic right proximal humerus fracture. Multilevel degenerative changes are present in the spine. IMPRESSION: Negative for pulmonary embolism. Esophageal thickening, particularly at the distal esoph bronson suggesting gastroesophageal reflux disease. No other acute findings identified within the chest.
--- NOTE | 2022-03-23 23:21 | EDPHYS ---
Physician Documentation [facility] Name: Herminia Truong Age: 66 yrs Sex: Female : 1955 Arrival Date: 03/23/2022 Time: 17:16 Bed 28 Private MD: ED Physician Bam Lockett HPI: 03/24 00:49 This 66 yrs old Female presents to ER via Ambulatory with complaints of Nausea, kb Dizziness, Congestion. 00:49 Patient reports cough, congestion, shortness of breath when supine, nausea, vomiting, kb dizziness, decreased appetite for 2 weeks. States she has been seen by PCP, completed 1 round of antibiotics and was started on Levaquin 3 days ago.. 00:49 The patient or guardian reports cough, that is intermittent, described as mild, kb difficulty breathing, flu symptoms, no appetite. Onset: The symptoms/episode began/occurred 2 week(s) ago. Severity of symptoms: At their worst the symptoms were moderate, in the emergency department the symptoms are unchanged. Modifying factors: The symptoms are alleviated by nothing, the symptoms are aggravated by nothing. Associated signs and symptoms: Pertinent positives: chest pain, nausea, vomiting. The patient has not experienced similar symptoms in the past. The patient has been recently seen by a physician:. Historical: - Allergies: 03/23 18:36 Vancomycin; tp1 - PMHx: 18:36 Diabetes - IDDM; Hyperlipidemia; Hypertension; broke right arm; tp1 - PSHx: 18:36 right elbow replacement; hysterectomy; Cholecystectomy; heart cath; hernia; PR; tp1 - Immunization history:: Client reports having NOT received the Covid vaccine. - Social history:: Smoking status: Patient/guardian denies using tobacco, the patient reports quitting approximately 16 years ago. ROS: 03/24 00:48 Back: Negative for injury and pain. kb Constitutional: Positive for malaise, poor PO intake. Cardiovascular: Positive for chest pain, Negative for edema, orthopnea, palpitations, paroxysmal nocturnal dyspnea. Respiratory: Positive for cough, shortness of breath. Abdomen/GI: Positive for nausea and vomiting, Negative for abdominal pain. Neuro: Positive for dizziness. All other systems are negative. Exam: 00:46 Constitutional: This is a well developed, well nourished patient who is awake, alert, kb and in no acute distress. Head/Face: Normocephalic, atraumatic. ENT: Moist Mucous membranes Chest/axilla: Normal chest wall appearance and motion. Cardiovascular: Regular rate and rhythm with a normal S1 and S2. No gallops, murmurs, or rubs. No pulse deficits. Respiratory: Respirations even and unlabored. No increased work of breathing. Talking in full sentences Abdomen/GI: Soft, non-tender. No distention Skin: Warm, dry with normal turgor. Normal color. MS/ Extremity: Pulses equal, no cyanosis. Neurovascular intact. Full, normal range of motion. Neuro: Awake and alert, GCS 15, oriented to person, place, time, and situation. Moves all extremities. Normal gait. Psych: Awake, alert, with orientation to person, place and time. Behavior, mood, and affect are within normal limits. 00:46 ECG was reviewed by the Attending Physician. Vital Signs: 03/23 18:31 BP 137 / 61; Pulse 87; Resp 22; Temp 98.2(TE); Pulse Ox 99% on R/A; Weight 71.21 kg; tp1 Height 5 ft. 2 in. (157.48 cm); 22:41 BP 135 / 69; Pulse 73; Resp 16 S; Pulse Ox 99% on R/A; ds4 18:31 Body Mass Index 28.72 (71.21 kg, 157.48 cm) tp1 MDM: 18:41 Patient medically screened. kb 03/24 00:46 Data reviewed: vital signs, nurses notes. Data interpreted: Pulse oximetry: on room air kb is 99 %. Interpretation: normal. Counseling: I had a detailed discussion with the patient and/or guardian regarding: the historical points, exam findings, and any diagnostic results supporting the discharge/admit diagnosis, lab results, radiology results, the need for outpatient follow up, a family practitioner, to return to the emergency department if symptoms worsen or persist or if there are any questions or concerns that arise at home. 03/23 18:41 Order name: Flu; Complete Time: 19:22 kb 03/23 18:41 Order name: COVID-19 SARS RT PCR (Document "Date of Onset" if Symptomatic); Complete kb Time: 19:36 03/23 18:42 Order name: Basic Metabolic Panel; Complete Time: 19:36 kb 03/23 18:42 Order name: CBC with Diff; Complete Time: 19:22 kb 03/23 18:42 Order name: D-Dimer; Complete Time: 19:22 kb 03/23 18:42 Order name: Magnesium; Complete Time: 19:36 kb 03/23 18:42 Order name: NT PRO-BNP; Complete Time: 19:36 kb 03/23 18:42 Order name: Troponin HS; Complete Time: 19:36 kb 03/23 18:42 Order name: XRAY Chest (1 view); Complete Time: 20:00 kb 03/23 18:42 Order name: EKG; Complete Time: 18:42 kb 03/23 18:42 Order name: Cardiac monitoring; Complete Time: 22:54 kb 03/23 19:23 Order name: CT Chest For PE Angio; Complete Time: 22:13 kb 03/23 22:04 Order name: Urine Dipstick-Ancillary; Complete Time: 22:06 EDMS 03/23 22:05 Order name: Urine Dipstick-Ancillary EDMS 03/23 18:42 Order name: EKG - Nurse/Tech; Complete Time: 21:24 kb 03/23 18:42 Order name: IV Saline Lock; Complete Time: 22:01 kb 03/23 18:42 Order name: Labs collected and sent; Complete Time: 18:59 kb 03/23 18:42 Order name: O2 Per Protocol; Complete Time: 18:59 kb 03/23 18:42 Order name: O2 Sat Monitoring; Complete Time: 18:59 kb EC:46 Rate is 91 beats/min. Rhythm is regular. QRS [place] is Normal. ID interval is normal at kb 136 msec. QRS interval is normal at 88 msec. QT interval is normal at 472 msec. Administered Medications: No medications were administered Disposition: 20:33 Co-signature as Attending Physician, Bam Lockett MD. rn Disposition Summary: 03/23/22 23:20 Discharge Ordered Location: Home kb Condition: Stable kb Diagnosis - Acute upper respiratory infection, unspecified kb Followup: kb - With: Emergency Department - When: As needed - Reason: Worsening of condition Followup: kb - With: Private Physician - When: 2 - 3 days - Reason: Recheck today's complaints, Continuance of care, Re-evaluation by your physician Discharge Instructions: - Discharge Summary Sheet kb - Upper Respiratory Infection, Adult, [id number] kb - Viral Respiratory Infection, [id number] kb Forms: - Medication Reconciliation Form kb - Thank You Letter kb - Antibiotic Education kb - Prescription Opioid Use kb Signatures: Dispatcher [employer] Saima Momin FNP-C FNP-Ckb Nieto, Roman, MD MD rn Balbina Villeda RN RN tp1 Corrections: (The following items were deleted from the chart) 03/23 18:39 18:36 PSHx: PR; tp1 tp1
--- NOTE | 2022-03-23 23:21 | ER ---
Nurse's Notes [facility] Name: Herminia Truong Age: 66 yrs Sex: Female : 1955 Arrival Date: 03/23/2022 Time: 17:16 Bed 28 Private MD: Diagnosis: Acute upper respiratory infection, unspecified Presentation: 03/23 18:31 Chief complaint: Patient states: states " I have been sick for a couple of weeks". tp1 reports seeing PCP and being diagnostic with bronchitis 10 days ago. PT has been taking antibiotics. States physician told to come to ER if symptoms get worse. CO congestion, SOB when laying down, dry cough, nausea, vomiting, dizziness, anorexia. Denies diarrhea. CO chest tightness for the past 2 days that increases with cough. pain rated 8/10. Coronavirus screen: Vaccine status: Patient reports being unvaccinated. Ebola Screen: Patient negative for fever greater than or equal to 101.5 degrees Fahrenheit, and additional compatible Ebola Virus Disease symptoms Patient denies exposure to infectious person. Patient denies travel to an Ebola-affected area in the 21 days before illness onset. Initial Sepsis Screen: Does the patient meet any 2 criteria? No. Patient's initial sepsis screen is negative. Does the patient have a suspected source of infection? No. Patient's initial sepsis screen is negative. Risk Assessment: Do you want to hurt yourself or someone else? Patient reports no desire to harm self or others. Onset of symptoms was February 07, 2022. 18:31 Method Of Arrival: Ambulatory tp1 18:31 Acuity: VELVET 3 tp1 Triage Assessment: 18:36 General: Appears in no apparent distress. uncomfortable, Behavior is cooperative, tp1 anxious. Pain: Complains of pain in chest Pain does not radiate. Pain currently is 8 out of 10 on a pain scale. Quality of pain is described as tightness. Neuro: Level of Consciousness is awake, alert, obeys commands, Oriented to person, place, time, situation. Cardiovascular: Patient's skin is warm and dry. Respiratory: Reports shortness of breath pain with cough Airway is patent Respiratory effort is even, unlabored, Breath sounds are clear bilaterally. Historical: - Allergies: 18:36 Vancomycin; tp1 - PMHx: 18:36 Diabetes - IDDM; Hyperlipidemia; Hypertension; broke right arm; tp1 - PSHx: 18:36 right elbow replacement; hysterectomy; Cholecystectomy; heart cath; hernia; MO; tp1 - Immunization history:: Client reports having NOT received the Covid vaccine. - Social history:: Smoking status: Patient/guardian denies using tobacco, the patient reports quitting approximately 16 years ago. Screenin:35 Abuse screen: Denies threats or abuse. Denies injuries from another. Nutritional ll3 screening: No deficits noted. Tuberculosis screening: No symptoms or risk factors identified. Fall Risk None identified. Assessment: 19:22 Reassessment: Lab alert of 530 DDIMER 530. ERP notified. bm7 21:25 Reassessment: notified by CT pt IV not working, IV discontinued with catheter intact, bb new IV inserted to left forearm using US 20g with good blood return and flushes easily pt tolerated well. 21:55 Reassessment: pt returned from CT A\\T\\O x 4, resp unlabored. bb 22:54 Reassessment: No changes from previously documented assessment. Patient and/or family ll3 updated on plan of care and expected duration. Pain level reassessed. Patient is alert, oriented x 3, equal unlabored respirations, skin warm/dry/pink. Vital Signs: 18:31 BP 137 / 61; Pulse 87; Resp 22; Temp 98.2(TE); Pulse Ox 99% on R/A; Weight 71.21 kg; tp1 Height 5 ft. 2 in. (157.48 cm); 22:41 BP 135 / 69; Pulse 73; Resp 16 S; Pulse Ox 99% on R/A; ds4 18:31 Body Mass Index 28.72 (71.21 kg, 157.48 cm) tp1 ED Course: 17:16 Patient arrived in ED. rg4 18:36 Triage completed. tp1 18:40 Arm band placed on. tp1 18:41 Saima Rosen FNP-C [facility]. kb 18:41 Bam Lockett MD is Attending Physician. kb 18:48 COVID-19 SARS RT PCR (Document "Date of Onset" if Symptomatic) Sent. tp1 18:48 Flu Sent. tp1 19:00 Initial lab(s) drawn, by me, sent to lab. Missed attempt(s): 22 gauge in left wrist. vg1 19:16 XRAY Chest (1 view) In Process Unspecified. EDMS 19:23 Notified ED physician of a critical lab result(s). DDIMER 530. bm7 20:39 Inserted saline lock: 20 gauge in left antecubital area, using aseptic technique. kb3 Accessed peripheral vein via ultrasound, utilizing dynamic ultrasound technique. 21:30 Inserted saline lock: 20 gauge in left forearm, using aseptic technique. bb 21:51 CT Chest For PE Angio In Process Unspecified. EDMS 22:38 Urine Dipstick-Ancillary Sent. bb 23:35 Patient has correct armband on for positive identification. Bed in low position. Call ll3 light in reach. Side rails up X 1. Client placed on continuous cardiac and pulse oximetry monitoring. NIBP monitoring applied. 23:35 No provider procedures requiring assistance completed. IV discontinued, intact, ll3 bleeding controlled, No redness/swelling at site. Pressure dressing applied. Administered Medications: No medications were administered Medication: 23:36 VIS not applicable for this client. ll3 Outcome: 23:20 Discharge ordered by . kb 23:35 Discharged to home ambulatory, with significant other. ll3 23:35 Condition: stable 23:35 Discharge instructions given to patient, significant other, Instructed on discharge instructions, follow up and referral plans. Demonstrated understanding of instructions, follow-up care. 23:36 Patient left the ED. ll3 Signatures: Dispatcher [employer] EDMS Saima Rosen, [employer]OC[employer]ATE-C [employer] ASSOCIATE-CkRafaela Rhodes, RN RN bb Parvez Alex ds4 Guerda Carreno rg4 Mireya Carreno RN RN vg1 Tammy Pineda, RN RN bm7 Ac Pitt RN RN ll3 Balbina Villeda, RN RN tp1 Jaz Castelan, RN RN kb3 Corrections: (The following items were deleted from the chart) 18:39 18:36 PSHx: MO; tp1 tp1 18:41 18:31 Chief complaint: Patient states: states " I have been sick for a couple of tp1 weeks". reports seeing PCP and being diagnostic with bronchitis 10 days ago. PT has been taking antibiotics. States physician told to come to ER if symptoms get worse. CO congestion, SOB when laying down, dry cough, nausea, vomiting, dizziness, anorexia. Denies diarrhea. CO chest tightness for the past 2 days. pain rated 8/10. tp1
--- NOTE | 2022-03-24 13:35 | EKG ---
Test Date: 2022-03-23 Test Time: 21:24:24 Chimney Repairer: GIANLUCA MEASUREMENT RESULTS: Intervals: Rate: 91 DC: 136 QRSD: 88 QT: 384 QTc: 472 [place]: P: 63 DC: 136 QRS: 63 T: 56 INTERPRETIVE STATEMENTS: Normal sinus rhythm ST abnormality, possible digitalis effect Abnormal ECG Compared to ECG 08/20/2017 13:04:36 ST (T wave) deviation now present Myocardial infarct finding no longer present Electronically Signed On 03-24-22 13:34:24 CDT by James Chan
[2022-03-25 00:36] VITALS: BP 135/69; O2SAT 99
[2022-03-25 00:55] VITALS: TEMP 98.2
== END 2022-03-23 23:36 | disposition home or self-care (01) ==
LOC: ER 17:13
DX: J06.9 Acute upper respiratory infection, unspecified (principal); Z20.822 Contact with and (suspected) exposure to COVID-19; I10 Essential (primary) hypertension
CPT/HCPCS: 93005; 85025; 80048; 36415; 83735; 85379; 81003; 84484; 83880; 87804 ×2; 71275; 71045; 99284; U0003; Q9967

== ENCOUNTER 2023-10-06 12:13 | Emergency (ER) | payer OTHER ==
--- OUTSIDE RECORDS SUMMARY | 2023-10-06 12:21 | XMS REPORT | Continuity of Care Document ---
Author Name Unknown Address [address] [facility] [address] [place] [address] [facility] Address [address] [facility]. [address] [place] [address] Care Team Providers Care Carbide Grinder Name Role Phone RAFFI FISHER Primary Care Physician JASWINDER Kruse Attending Clinician Khadijah Ha MD, Jaswinder Amaro Attending Clinician [phone] JESUSITA OWEN Attending Clinician UnavailJesusita Duran DO Attending Clinician [phone] Doctor Unassigned, [place] Attending Clinician Curtis Crowley MD Attending Clinician [phone] Samuel_Tyler Attending Clinician Unavail able Patricia Attending Clinician UnavailMaverick Maloney Attending Clinician Unavailkaitlyn Roberts, [facility] Attending Clinician CURTIS Camacho Attending Clinician UnavailTyron Neves Attending Clinician [phone] Tyron Dotson Attending Clinician Unavailable SAMEER ADLER Attending Clinician Unavail able SAMEER ADLER Attending Clinician Unavail able Sameer Adler MD Attending Clinician [phone] RUT MYLES Attending Clinician Unavaila BHUMI Jamil Attending Clinician Unavailable GONZALEZ MCMANUS Attending Clinician Unavailable ANUPAM REBOLLAR Attending Clinician Unavailable JESUSITA OWEN Admitting Clinician Unavailab sandra Baker_Tyler Admitting Clinician Unavail able Rosamaria_Mitch Admitting Clinician Unavailab Maverick Baires Admitting Clinician UnavailTyron Riggs Admitting Clinician Unavailable SAMEER ADLER Admitting Clinician Unavail able CURTIS PANDEY Admitting Clinician Unavailab le Payers Payer Name Policy Type Policy Number Effective Date Expirati on Date Source MEDICARE PART A \\T\\ B [id number] 2009 00:00:00 [id number] 2007 00:00:00 [place] [employer] [id number] 2009 00:00:00 () [id number] 2007 00:00:00 [facility] (MEDICARE DME REGION C) [id number] 2009 00:00:00 Problems Condition Name Condition Details Condition Category Status Onset Date Resolution Date Last Treatment Date Treating Clinician Comments Source Closed fracture of upper end of humerus Closed Fracture of Upper End of Humerus Problem Active 1- 00:00: 00 [facility] Closed fracture of proximal right humerus Closed Fracture of Proximal Right Humerus Problem Active - 00:00: 00 [facility] Dietary B12 deficiency Dietary B12 deficiency Disease Active 03-22 00:00: 00 [facility] Mixed hyperlipid emia Mixed hyperlipid emia Disease Active 12-12 00:00: 00 [facility] 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 Disease Active 2014-07 00:00: 00 [facility] Depression Depression Disease Active 2014-07 00:00: 00 [facility] Sinusitis Sinusitis Disease Active 16 00:00: 00 [facility] Diabetic arthropath y Diabetic arthropath y Disease Active 09-21 00:00: 00 [facility] Adhesive capsulitis of shoulder Adhesive capsulitis of shoulder Disease Active 09-21 00:00: 00 [facility] Osteoarthr itis, multiple sites Osteoarthr itis, multiple sites Disease Active 09-21 00:00: 00 [facility] Chronic pain syndrome Chronic pain syndrome Disease Active 09-21 00:00: 00 [facility] Arthritis Arthritis Disease Active 07-24 00:00: 00 [facility] Allergic rhinitis Allergic rhinitis Disease Active 07-24 00:00: 00 [facility] Essential hypertensi on, benign Essential hypertensi on, benign Disease Active 10-04 00:00: 00 [facility] Vitamin D deficiency Vitamin D deficiency Disease Active 10-04 00:00: 00 Overview: Formattin g of this note might be different from the original. ICD10 Diagnosis Term Director Of Recruitment And Admissions Utility [facility] Allergies, Adverse Reactions, Alerts Allergy Name Allergy Type Status Severity Reaction(s) Onset Date Inactive Date Treating Clinician Comments Source COVID-19 (SARS-CO V-2) VACCINE, AD26 DRUG INGREDI Active Rash 07-16 00:00: 00 [facility] Covid-19 (Sars-Co v-2) Vaccine, Ad26 Propensi ty to adverse reaction s Active Rash 07-16 00:00: 00 [facility] vancomyc in DA Active SV ANAPHYLAXIS 12-27 00:00: 00 [facility] VANCOMYC IN DRUG INGREDI Active High Unknown-Cmnt 2007-07 00:00: 00 [facility] Vancomyc in Propensi ty to adverse reaction s Active Unknown - See comments 2007-07 00:00: 00 paralysis [facility] Social History Social Habit Start Date Stop Date Quantity Comments Source History SDOH Alcohol Frequency [facility] SD[facility] Alcohol Binge [facility] Gender identity [facility] Alcohol intake 2023-08-21 00:00:00 2023-08-21 00:00:00 Current drinker of alcohol (finding) [facility] Exposure to SARS-CoV-2 (event) 2022-11-04 00:00:00 2022-11-14 12:16:[address] [facility] History of Social function 2022-08-15 00:00:00 2022-08-15 00:00:00 [facility] Cigarettes smoked current (pack per day) - Reported 2022-03-21 00:00:00 2022-03-21 00:00:00 [facility] Tobacco use and exposure 2022-03-21 00:00:00 2022-03-21 00:00:00 Smokeless tobacco non-user [facility] Alcohol Comment 2012-09-21 00:00:00 2012-09-21 00:00:[address] [facility] History of tobacco use 2005-07-24 00:00:[address] [facility] Sex Ass[birth year] At 1955 00:00:00 1955 00:00:00 [facility] Smoking Status Start Date Stop Date Source Ex-smoker 2022-03-21 00:00:00 2022-03-21 [facility]00[facility] Ordered Medication Name Filled Medication Name Start Date Stop Date Current Medication? Ordering Clinician Indication Dosage Frequency Signature (SIG) Comments Components Source Dexlansopra zole (DEXILANT) 60 mg capsule 08-21 13:17: 57 08-21 00:00 :00 No Take by mouth. [facility] Dexlansopra zole (DEXILANT) 60 mg capsule 08-21 13:17: 57 08-21 00:00 :00 No Take by mouth. [facility] Dexlansopra zole (DEXILANT) 60 mg capsule 08-21 13:17: 57 08-21 00:00 :00 No Take by mouth. [facility] Dexlansopra zole (DEXILANT) 60 mg capsule 08-21 00:00: 00 Yes [id number] 60mg Take 1 capsule by mouth in the morning. TAke 1 capsule 4 times daily [facility] aliskiren (TEKTURNA) 150 mg tablet 08-21 00:00: 00 Yes [id number] 150mg Take 1 tablet by mouth in the morning. [facility] atorvastati n 40 mg tablet - 00:00: 00 Yes [id number] 80mg Take 2 tablets by mouth at bedtime. [facility] diltiazem 120 mg tablet 08-21 00:00: 00 Yes [id number] 120mg Take 1 tablet by mouth in the morning and 1 tablet at noon and 1 tablet in the evening. [facility] hydroCHLORO thiazide 25 mg tablet 08-21 00:00: 00 Yes [id number] 25mg Take 1 tablet by mouth in the morning. [facility] insulin degludec 200 unit/mL (3 mL) InPn 08-21 00:00: 00 Yes [id number] 26U inject 26 Units under the skin in the morning. [facility] insulin lispro (HUMALOG KWIKPEN INSULIN) 100 unit/mL pen injector 08-21 00:00: 00 Yes [id number] inject under the skin 3 (three) times daily before meals, est 40 units/day. [facility] Dexlansopra zole (DEXILANT) 60 mg capsule 08-21 00:00: 00 Yes [id number] 60mg Take 1 capsule by mouth in the morning. TAke 1 capsule 4 times daily [facility] aliskiren (TEKTURNA) 150 mg tablet 08-21 00:00: 00 Yes [id number] 150mg Take 1 tablet by mouth in the morning. [facility] atorvastati n 40 mg tablet - 00:00: 00 Yes [id number] 80mg Take 2 tablets by mouth at bedtime. [facility] diltiazem 120 mg tablet - 00:00: 00 Yes [id number] 120mg Take 1 tablet by mouth in the morning and 1 tablet at noon and 1 tablet in the evening. [facility] hydroCHLORO thiazide 25 mg tablet 08-21 00:00: 00 Yes [id number] 25mg Take 1 tablet by mouth in the morning. [facility] insulin degludec 200 unit/mL (3 mL) In - 00:00: 00 Yes [id number] 26U inject 26 Units under the skin in the morning. [facility] insulin lispro (HUMALOG KWIKPEN INSULIN) 100 unit/mL pen injector 08-21 00:00: 00 Yes [id number] inject under the skin 3 (three) times daily before meals, est 40 units/day. [facility] Dexlansopra zole (DEXILANT) 60 mg capsule 08-21 00:00: 00 Yes [id number] 60mg Take 1 capsule by mouth in the morning. TAke 1 capsule 4 times daily [facility] aliskiren (TEKTURNA) 150 mg tablet 08-21 00:00: 00 Yes [id number] 150mg Take 1 tablet by mouth in the morning. [facility] atorvastati n 40 mg tablet 08-21 00:00: 00 Yes [id number] 80mg Take 2 tablets by mouth at bedtime. [facility] diltiazem 120 mg tablet 08-21 00:00: 00 Yes [id number] 120mg Take 1 tablet by mouth in the morning and 1 tablet at noon and 1 tablet in the evening. [facility] hydroCHLORO thiazide 25 mg tablet 08-21 00:00: 00 Yes [id number] 25mg Take 1 tablet by mouth in the morning. [facility] insulin degludec 200 unit/mL (3 mL) In - 00:00: 00 Yes [id number] 26U inject 26 Units under the skin in the morning. [facility] insulin lispro (HUMALOG KWIKPEN INSULIN) 100 unit/mL pen injector 08-21 00:00: 00 Yes [id number] inject under the skin 3 (three) times daily before meals, est 40 units/day. [facility] Dexlansopra zole (DEXILANT) 60 mg capsule 08-21 00:00: 00 Yes [id number] 60mg Take 1 capsule by mouth in the morning. TAke 1 capsule 4 times daily [facility] aliskiren (TEKTURNA) 150 mg tablet 08-21 00:00: 00 Yes [id number] 150mg Take 1 tablet by mouth in the morning. [facility] atorvastati n 40 mg tablet 08-21 00:00: 00 Yes [id number] 80mg Take 2 tablets by mouth at bedtime. [facility] diltiazem 120 mg tablet 08-21 00:00: 00 Yes [id number] 120mg Take 1 tablet by mouth in the morning and 1 tablet at noon and 1 tablet in the evening. [facility] hydroCHLORO thiazide 25 mg tablet 08-21 00:00: 00 Yes [id number] 25mg Take 1 tablet by mouth in the morning. [facility] insulin degludec 200 unit/mL (3 mL) InPn 08-21 00:00: 00 Yes [id number] 26U inject 26 Units under the skin in the morning. [facility] insulin lispro (HUMALOG KWIKPEN INSULIN) 100 unit/mL pen injector 08-21 00:00: 00 Yes [id number] inject under the skin 3 (three) times daily before meals, est 40 units/day. [facility] insulin degludec 200 unit/mL (3 mL) InPn 08-21 00:00: 00 08-21 00:00 :00 No [id number] 26U inject 26 Units under the skin in the morning. [facility] insulin lispro (HUMALOG KWIKPEN INSULIN) 100 unit/mL pen injector 08-21 00:00: 00 08-21 00:00 :00 No [id number] inject under the skin 3 (three) times daily before meals, est 40 units/day. [facility] insulin degludec 200 unit/mL (3 mL) In 2-12 00:00: 00 08-21 00:00 :00 No [id number] 26U inject 26 Units under the skin in the morning. [facility] insulin lispro (HUMALOG KWIKPEN INSULIN) 100 unit/mL pen injector 2-12 00:00: 00 08-21 00:00 :00 No [id number] inject under the skin 3 (three) times daily before meals, est 40 units/day. [facility] insulin degludec 200 unit/mL (3 mL) In 2-12 00:00: 00 08-21 00:00 :00 No [id number] 26U inject 26 Units under the skin in the morning. [facility] insulin lispro (HUMALOG KWIKPEN INSULIN) 100 unit/mL pen injector 08-21 00:00: 00 08-21 00:00 :00 No [id number] inject under the skin 3 (three) times daily before meals, est 40 units/day. [facility] codeine-gua ifenesin (ROBITUSSIN AC) 10-100 mg/5 mL oral solution 10 mL 07-16 16:00: 00 07-16 16:15 :00 No 10mL 10 mL, Oral, ONCE, 1 dose, On 07/16/23 at 1000, LAURIE [facility] albuterol 90 mcg/actuati on inhaler 07-16 00:00: 00 Yes [id number] 2{puff} Inhale 2 Puffs every 4 (four) hours as needed for Wheezing or Shortness of Breath. [facility] bromphenira mine-pseudo ephedrine-D M (BROMFED DM) 2-30-10 mg/5 mL syrup 07-16 00:00: 00 Yes [id number] 5mL Take 5 mL by mouth 4 (four) times daily as needed for Cold symptoms or Cough. [facility] albuterol 90 mcg/actuati on inhaler 07-16 00:00: 00 Yes [id number] 2{puff} Inhale 2 Puffs every 4 (four) hours as needed for Wheezing or Shortness of Breath. [facility] bromphenira mine-pseudo ephedrine-D M (BROMFED DM) 2-30-10 mg/5 mL syrup 0 - 00:00: 00 Yes [id number] 5mL Take 5 mL by mouth 4 (four) times daily as needed for Cold symptoms or Cough. [facility] albuterol 90 mcg/actuati on inhaler - 00:00: 00 Yes [id number] 2{puff} Inhale 2 Puffs every 4 (four) hours as needed for Wheezing or Shortness of Breath. [facility] bromphenira mine-pseudo ephedrine-D M (BROMFED DM) 2-30-10 mg/5 mL syrup 07-16 00:00: 00 Yes [id number] 5mL Take 5 mL by mouth 4 (four) times daily as needed for Cold symptoms or Cough. [facility] albuterol 90 mcg/actuati on inhaler 07-16 00:00: 00 Yes [id number] 2{puff} Inhale 2 Puffs every 4 (four) hours as needed for Wheezing or Shortness of Breath. [facility] bromphenira mine-pseudo ephedrine-D M (BROMFED DM) 2-30-10 mg/5 mL syrup 0 07-16 00:00: 00 Yes [id number] 5mL Take 5 mL by mouth 4 (four) times daily as needed for Cold symptoms or Cough. [facility] albuterol 90 mcg/actuati on inhaler 07-16 00:00: 00 Yes [id number] 2{puff} Inhale 2 Puffs every 4 (four) hours as needed for Wheezing or Shortness of Breath. [facility] bromphenira mine-pseudo ephedrine-D M (BROMFED DM) 2-30-10 mg/5 mL syrup 0 07-16 00:00: 00 Yes [id number] 5mL Take 5 mL by mouth 4 (four) times daily as needed for Cold symptoms or Cough. [facility] VITAMIN C 500 MG ORAL TAB 2022-07 13:31: 37 Yes 1 daily [facility] VITAMIN C 500 MG ORAL TAB 2022-07 13:31: 37 Yes 1 daily [facility] VITAMIN C 500 MG ORAL TAB 2022-07 13:31: 37 Yes 1 daily [facility] VITAMIN C 500 MG ORAL TAB 2022-07 13:31: 37 Yes 1 daily [facility] VITAMIN C 500 MG ORAL TAB 2022-07 13:31: 37 Yes 1 daily [facility] VITAMIN C 500 MG ORAL TAB 2022-07 13:31: 37 Yes 1 daily [facility] VITAMIN C 500 MG ORAL TAB 2022-07 13:31: 37 Yes 1 daily [facility] VITAMIN C 500 MG ORAL TAB 2022-07 13:31: 37 Yes 1 daily [facility] VITAMIN C 500 MG ORAL TAB 2022-07 13:31: 37 Yes 1 daily [facility] MULTI-VITAM IN ORAL 2022-07 13:31: 36 Yes 1 daily [facility] MULTI-VITAM IN ORAL 2022-07 13:31: 36 Yes 1 daily [facility] MULTI-VITAM IN ORAL 2022-07 13:31: 36 Yes 1 daily [facility] MULTI-VITAM IN ORAL 2022-07 13:31: 36 Yes 1 daily [facility] MULTI-VITAM IN ORAL 2022-07 13:31: 36 Yes 1 daily [facility] MULTI-VITAM IN ORAL 2022-07 13:31: 36 Yes 1 daily [facility] MULTI-VITAM IN ORAL 2022-07 13:31: 36 Yes 1 daily [facility] MULTI-VITAM IN ORAL 2022-07 13:31: 36 Yes 1 daily [facility] MULTI-VITAM IN ORAL 2022-07 13:31: 36 Yes 1 daily [facility] ASPIRIN 81 MG ORAL CHEW 2022-07 13:31: 33 Yes once daily [facility] ASPIRIN 81 MG ORAL CHEW 2022-07 13:31: 33 Yes once daily [facility] ASPIRIN 81 MG ORAL CHEW 2022-07 13:31: 33 Yes once daily [facility] ASPIRIN 81 MG ORAL CHEW 2022-07 13:31: 33 Yes once daily [facility] ASPIRIN 81 MG ORAL CHEW 2022-07 13:31: 33 Yes once daily [facility] ASPIRIN 81 MG ORAL CHEW 2022-07 13:31: 33 Yes once daily [facility] ASPIRIN 81 MG ORAL CHEW 2022-07 13:31: 33 Yes once daily [facility] ASPIRIN 81 MG ORAL CHEW 2022-07 13:31: 33 Yes once daily [facility] ASPIRIN 81 MG ORAL CHEW 2022-07 13:31: 33 Yes once daily [facility] cholecalcif christina, vitamin D3, (VITAMIN D3) 1,000 unit tablet 2022-07 13:31: 30 Yes 1000U Take 1 tablet by mouth in the morning. [facility] cholecalcif christina, vitamin D3, (VITAMIN D3) 1,000 unit tablet 2022-07 13:31: 30 Yes 1000U Take 1 tablet by mouth in the morning. [facility] cholecalcif christina, vitamin D3, (VITAMIN D3) 1,000 unit tablet 2022-07 13:31: 30 Yes 1000U Take 1 tablet by mouth in the morning. [facility] cholecalcif christina, vitamin D3, (VITAMIN D3) 1,000 unit tablet 2022-07 13:31: 30 Yes 1000U Take 1 tablet by mouth in the morning. [facility] cholecalcif christina, vitamin D3, (VITAMIN D3) 1,000 unit tablet 2022-07 13:31: 30 Yes 1000U Take 1 tablet by mouth in the morning. [facility] cholecalcif christina, vitamin D3, (VITAMIN D3) 1,000 unit tablet 2022-07 13:31: 30 Yes 1000U Take 1 tablet by mouth in the morning. [facility] cholecalcif christina, vitamin D3, (VITAMIN D3) 1,000 unit tablet 2022-07 13:31: 30 Yes 1000U Take 1 tablet by mouth in the morning. [facility] cholecalcif christina, vitamin D3, (VITAMIN D3) 1,000 unit tablet 2022-07 13:31: 30 Yes 1000U Take 1 tablet by mouth in the morning. [facility] cholecalcif christina, vitamin D3, (VITAMIN D3) 1,000 unit tablet 2022-07 13:31: 30 Yes 1000U Take 1 tablet by mouth in the morning. [facility] CYANOCOBALA MIN, VITAMIN B-12, (VITAMIN B-12 ORAL) 2022-07 13:31: 28 Yes Take by mouth daily. [facility] CYANOCOBALA MIN, VITAMIN B-12, (VITAMIN B-12 ORAL) 2022-07 13:31: 28 Yes Take by mouth daily. [facility] CYANOCOBALA MIN, VITAMIN B-12, (VITAMIN B-12 ORAL) 2022-07 13:31: 28 Yes Take by mouth daily. [facility] CYANOCOBALA MIN, VITAMIN B-12, (VITAMIN B-12 ORAL) 2022-07 13:31: 28 Yes Take by mouth daily. [facility] CYANOCOBALA MIN, VITAMIN B-12, (VITAMIN B-12 ORAL) 2022-07 13:31: 28 Yes Take by mouth daily. [facility] CYANOCOBALA MIN, VITAMIN B-12, (VITAMIN B-12 ORAL) 2022-07 13:31: 28 Yes Take by mouth daily. [facility] CYANOCOBALA MIN, VITAMIN B-12, (VITAMIN B-12 ORAL) 2022-07 13:31: 28 Yes Take by mouth daily. [facility] CYANOCOBALA MIN, VITAMIN B-12, (VITAMIN B-12 ORAL) 2022-07 13:31: 28 Yes Take by mouth daily. [facility] CYANOCOBALA MIN, VITAMIN B-12, (VITAMIN B-12 ORAL) 2022-07 13:31: 28 Yes Take by mouth daily. [facility] Dexlansopra zole (DEXILANT) 60 mg capsule 2022-07 13:31: 16 Yes Take by mouth. [facility] Dexlansopra zole (DEXILANT) 60 mg capsule 2022-07 13:31: 16 Yes Take by mouth. [facility] Dexlansopra zole (DEXILANT) 60 mg capsule 2022-07 13:31: 16 Yes Take by mouth. [facility] Dexlansopra zole (DEXILANT) 60 mg capsule 2022-07 13:31: 16 Yes Take by mouth. [facility] Dexlansopra zole (DEXILANT) 60 mg capsule 2022-07 13:31: 16 Yes Take by mouth. [facility] cholecalcif christina, vitamin D3, (VITAMIN D3) 1,000 unit tablet 02-15 13:25: 45 Yes 1000U Take 1 tablet by mouth in the morning. [facility] CYANOCOBALA MIN, VITAMIN B-12, (VITAMIN B-12 ORAL) 02-15 13:25: 45 Yes Take by mouth daily. [facility] cholecalcif christina, vitamin D3, (VITAMIN D3) 1,000 unit tablet 02-15 13:25: 45 Yes 1000U Take 1 tablet by mouth in the morning. [facility] CYANOCOBALA MIN, VITAMIN B-12, (VITAMIN B-12 ORAL) 02-15 13:25: 45 Yes Take by mouth daily. [facility] cholecalcif christina, vitamin D3, (VITAMIN D3) 1,000 unit tablet 02-15 13:25: 45 Yes 1000U Take 1 tablet by mouth in the morning. [facility] CYANOCOBALA MIN, VITAMIN B-12, (VITAMIN B-12 ORAL) 02-15 13:25: 45 Yes Take by mouth daily. [facility] cholecalcif christina, vitamin D3, (VITAMIN D3) 1,000 unit tablet 02-15 13:25: 45 Yes 1000U Take 1 tablet by mouth in the morning. [facility] CYANOCOBALA MIN, VITAMIN B-12, (VITAMIN B-12 ORAL) 02-15 13:25: 45 Yes Take by mouth daily. [facility] aliskiren (TEKTURNA) 150 mg tablet 02-15 00:00: 00 Yes [id number] 150mg Take 1 tablet by mouth in the morning. [facility] aliskiren (TEKTURNA) 150 mg tablet 0 02-15 00:00: 00 Yes [id number] 150mg Take 1 tablet by mouth in the morning. [facility] aliskiren (TEKTURNA) 150 mg tablet 0 02-15 00:00: 00 Yes [id number] 150mg Take 1 tablet by mouth in the morning. [facility] aliskiren (TEKTURNA) 150 mg tablet 0 02-15 00:00: 00 Yes [id number] 150mg Take 1 tablet by mouth in the morning. [facility] aliskiren (TEKTURNA) 150 mg tablet 2022-0 02-15 00:00: 00 Yes [id number] 150mg Take 1 tablet by mouth in the morning. [facility] aliskiren (TEKTURNA) 150 mg tablet 0 02-15 00:00: 00 Yes [id number] 150mg Take 1 tablet by mouth in the morning. [facility] aliskiren (TEKTURNA) 150 mg tablet 2022-0 02-15 00:00: 00 Yes [id number] 150mg Take 1 tablet by mouth in the morning. [facility] aliskiren (TEKTURNA) 150 mg tablet 2023-0 8 00:00: 00 Yes [id number] 150mg Take 1 tablet by mouth in the morning. [facility] aliskiren (TEKTURNA) 150 mg tablet 2022-0 02-15 00:00: 00 Yes [id number] 150mg Take 1 tablet by mouth in the morning. [facility] aliskiren (TEKTURNA) 150 mg tablet 2022-0 02-15 00:00: 00 08-21 00:00 :00 No [id number] 150mg Take 1 tablet by mouth in the morning. [facility] aliskiren (TEKTURNA) 150 mg tablet 2022-0 02-15 00:00: 00 08-21 00:00 :00 No [id number] 150mg Take 1 tablet by mouth in the morning. [facility] aliskiren (TEKTURNA) 150 mg tablet 2022-0 02-15 00:00: 00 08-21 00:00 :00 No [id number] 150mg Take 1 tablet by mouth in the morning. [facility] ASPIRIN 81 MG ORAL CHEW 2022-0 5-08 13:03: 27 Yes once daily [facility] ASPIRIN 81 MG ORAL CHEW 3-0 5-08 13:03: 27 Yes once daily [facility] ASPIRIN 81 MG ORAL CHEW 3-0 5-08 13:03: 27 Yes once daily [facility] ASPIRIN 81 MG ORAL CHEW 3-0 5-08 13:03: 27 [facility] MG ORAL CHEW 3-0 5-08 13:03: 27 Yes [facility] ASP[facility]IN 81 MG ORAL CHEW 3-0 5-08 13:03: 27 Yes [facility] ASPIRIN 81 MG ORAL CHEW 3-0 5-08 13:03: 27 Yes once daily [facility] cholecalcif christina, vitamin D3, (VITAMIN D3) 1,000 unit tablet 2022-0 5-08 13:03: 25 Yes 1000U Take 1,000 Units by mouth daily. [facility] cholecalcif christina, vitamin D3, (VITAMIN D3) 1,000 unit tablet 0 11-14 13:03: 25 Yes 1000U Take 1,000 Units by mouth daily. [facility] cholecalcif christina, vitamin D3, (VITAMIN D3) 1,000 unit tablet 11-14 13:03: 25 Yes 1000U Take 1,000 Units by mouth daily. [facility] CYANOCOBALA MIN, VITAMIN B-12, (VITAMIN B-12 ORAL) 0 11-14 13:03: 22 Yes Take by mouth daily. [facility] CYANOCOBALA MIN, VITAMIN B-12, (VITAMIN B-12 ORAL) 0 11-14 13:03: 22 Yes Take by mouth daily. [facility] CYANOCOBALA MIN, VITAMIN B-12, (VITAMIN B-12 ORAL) 0 11-14 13:03: 22 Yes Take by mouth daily. [facility] atorvastati n 40 mg tablet 2022-0 2- 00:00: 00 Yes [id number] 80mg Take 2 tablets by mouth at bedtime. [facility] atorvastati n 40 mg tablet 2022-0 2- 00:00: 00 Yes [id number] 80mg Take 2 tablets by mouth at bedtime. [facility] atorvastati n 40 mg tablet 2022-0 2- 00:00: 00 Yes [id number] 80mg Take 2 tablets by mouth at bedtime. [facility] atorvastati n 40 mg tablet 2022-0 2- 00:00: 00 Yes [id number] 80mg Take 2 tablets by mouth at bedtime. [facility] atorvastati n 40 mg tablet 2022-0 2- 00:00: 00 Yes [id number] 80mg Take 2 tablets by mouth at bedtime. [facility] atorvastati n 40 mg tablet 2022-0 2- 00:00: 00 Yes [id number] 80mg Take 2 tablets by mouth at bedtime. [facility] atorvastati n 40 mg tablet 2023-0 2-06 00:00: 00 Yes [id number] 80mg Take 2 tablets by mouth at bedtime. [facility] atorvastati n 40 mg tablet 2022-0 2-06 00:00: 00 Yes [id number] 80mg Take 2 tablets by mouth at bedtime. [facility] atorvastati n 40 mg tablet 2022-0 2-06 00:00: 00 Yes [id number] 80mg Take 2 tablets by mouth at bedtime. [facility] atorvastati n 40 mg tablet 2022-0 2-06 00:00: 00 Yes [id number] 80mg Take 2 tablets by mouth at bedtime. [facility] atorvastati n 40 mg tablet 2022-0 2- 00:00: 00 Yes [id number] 80mg Take 2 tablets by mouth at bedtime. [facility] atorvastati n 40 mg tablet 2022-0 2- 00:00: 00 Yes [id number] 80mg Take 2 tablets by mouth at bedtime. [facility] atorvastati n 40 mg tablet 2022-0 2-06 00:00: 00 Yes [id number] 80mg Take 2 tablets by mouth at bedtime. [facility] atorvastati n 40 mg tablet 2022-0 2- 00:00: 00 Yes [id number] 80mg Take 2 tablets by mouth at bedtime. [facility] atorvastati n 40 mg tablet 2022-0 2-06 00:00: 00 08-21 00:00 :00 No [id number] 80mg Take 2 tablets by mouth at bedtime. [facility] atorvastati n 40 mg tablet 2022-0 2-06 00:00: 00 08-21 00:00 :00 No [id number] 80mg Take 2 tablets by mouth at bedtime. [facility] atorvastati n 40 mg tablet 3-0 2-06 00:00: 00 08-21 00:00 :00 No [id number] 80mg Take 2 tablets by mouth at bedtime. [facility] atorvastati n 40 mg tablet 2021-07 00:00: 00 Yes [id number] 40mg Take 1 tablet by mouth at bedtime. [facility] hydroCHLORO thiazide 25 mg tablet 2021-07 00:00: 00 Yes [id number] 25mg Take 1 tablet by mouth in the morning. [facility] insulin degludec 200 unit/mL (3 mL) In 2021-07 00:00: 00 Yes [id number] 26U inject 26 Units under the skin daily. [facility] SERTraline 100 mg tablet 2021-07 00:00: 00 Yes [id number] 100mg Take 1 tablet by mouth in the morning. [facility] insulin lispro (HUMALOG KWIKPEN INSULIN) 100 unit/mL pen injector 2021-07 00:00: 00 Yes [id number] inject under the skin 3 (three) times daily before meals, est 40 units/day. [facility] diltiazem 120 mg tablet 2021-07 00:00: 00 Yes [id number] 120mg Take 1 tablet by mouth in the morning and 1 tablet at noon and 1 tablet in the evening. [facility] atorvastati n 40 mg tablet 2021-07 00:00: 00 Yes [id number] 40mg Take 1 tablet by mouth at bedtime. [facility] hydroCHLORO thiazide 25 mg tablet 2021-07 00:00: 00 Yes [id number] 25mg Take 1 tablet by mouth in the morning. [facility] insulin degludec 200 unit/mL (3 mL) [facility] 2021-07 00:00: 00 Yes [id number] 26U inject 26 Units under the skin daily. [facility] SERTraline 100 mg tablet 2021-07 00:00: 00 Yes [id number] 100mg Take 1 tablet by mouth in the morning. [facility] insulin lispro (HUMALOG KWIKPEN INSULIN) 100 unit/mL pen injector 2021-07 00:00: 00 Yes [id number] inject under the skin 3 (three) times daily before meals, est 40 units/day. [facility] diltiazem 120 mg tablet 2021-07 00:00: 00 Yes [id number] 120mg Take 1 tablet by mouth in the morning and 1 tablet at noon and 1 tablet in the evening. [facility] atorvastati n 40 mg tablet 2021-07 00:00: 00 Yes [id number] 40mg Take 1 tablet by mouth at bedtime. [facility] hydroCHLORO thiazide 25 mg tablet 2021-07 00:00: 00 Yes [id number] 25mg Take 1 tablet by mouth in the morning. [facility] insulin degludec 200 unit/mL (3 mL) In 2021-07 00:00: 00 Yes [id number] 26U inject 26 Units under the skin daily. [facility] SERTraline 100 mg tablet 2021-07 00:00: 00 Yes [id number] 100mg Take 1 tablet by mouth in the morning. [facility] insulin lispro (HUMALOG KWIKPEN INSULIN) 100 unit/mL pen injector 2021-07 00:00: 00 Yes [id number] inject under the skin 3 (three) times daily before meals, est 40 units/day. [facility] diltiazem 120 mg tablet 2021-07 00:00: 00 Yes [id number] 120mg Take 1 tablet by mouth in the morning and 1 tablet at noon and 1 tablet in the evening. [facility] atorvastati n 40 mg tablet 2021-07 00:00: 00 Yes [id number] 40mg Take 1 tablet by mouth at bedtime. [facility] hydroCHLORO thiazide 25 mg tablet 2021-07 00:00: 00 Yes [id number] 25mg Take 1 tablet by mouth in the morning. [facility] insulin degludec 200 unit/mL (3 mL) In 2021-07 00:00: 00 Yes [id number] 26U inject 26 Units under the skin daily. [facility] SERTraline 100 mg tablet 2021-07 00:00: 00 Yes [id number] 100mg Take 1 tablet by mouth in the morning. [facility] lis[facility] (HUMALOG KWIKPEN INSULIN) 100 unit/mL pen injector 2021-07 00:00: 00 Yes [id number] inject under the skin 3 (three) times daily before meals, est 40 units/day. [facility] diltiazem 120 mg tablet 2021-07 00:00: 00 Yes [id number] 120mg Take 1 tablet by mouth in the morning and 1 tablet at noon and 1 tablet in the evening. [facility] hydroCHLORO thiazide 25 mg tablet 2021-07 00:00: 00 Yes [id number] 25mg Take 1 tablet by mouth in the morning. [facility] insulin degludec 200 unit/mL (3 mL) InPn 2021-07 00:00: 00 Yes [id number] 26U inject 26 Units under the skin daily. [facility] SERTraline 100 mg tablet 2021-07 00:00: 00 Yes [id number] 100mg Take 1 tablet by mouth in the morning. [facility] insulin lispro (HUMALOG KWIKPEN INSULIN) 100 unit/mL pen injector 2021-07 00:00: 00 Yes [id number] inject under the skin 3 (three) times daily before meals, est 40 units/day. [facility] diltiazem 120 mg tablet 2021-07 00:00: 00 Yes [id number] 120mg Take 1 tablet by mouth in the morning and 1 tablet at noon and 1 tablet in the evening. [facility] hydroCHLORO thiazide 25 mg tablet 2021-07 00:00: 00 Yes [id number] 25mg Take 1 tablet by mouth in the morning. [facility] insulin degludec 200 unit/mL (3 mL) InPn 2021-07 00:00: 00 Yes [id number] 26U inject 26 Units under the skin daily. [facility] SERTraline 100 mg tablet 2021-07 00:00: 00 Yes [id number] 100mg Take 1 tablet by mouth in the morning. [facility] insulin lispro (HUMALOG KWIKPEN INSULIN) 100 unit/mL pen injector 2021-07 00:00: 00 Yes [id number] inject under the skin 3 (three) times daily before meals, est 40 units/day. [facility] diltiazem 120 mg tablet 2021-07 00:00: 00 Yes [id number] 120mg Take 1 tablet by mouth in the morning and 1 tablet at noon and 1 tablet in the evening. [facility] hydroCHLORO thiazide 25 mg tablet 2021-07 00:00: 00 Yes [id number] 25mg Take 1 tablet by mouth in the morning. [facility] insulin degludec 200 unit/mL (3 mL) InPn 2021-07 00:00: 00 Yes [id number] 26U inject 26 Units under the skin daily. [facility] SERTraline 100 mg tablet 2021-07 00:00: 00 Yes [id number] 100mg Take 1 tablet by mouth in the morning. [facility] insulin lispro (HUMALOG KWIKPEN INSULIN) 100 unit/mL pen injector 2021-07 00:00: 00 Yes [id number] inject under the skin 3 (three) times daily before meals, est 40 units/day. [facility] diltiazem 120 mg tablet 2021-07 00:00: 00 Yes [id number] 120mg Take 1 tablet by mouth in the morning and 1 tablet at noon and 1 tablet in the evening. [facility] hydroCHLORO thiazide 25 mg tablet 2021-07 00:00: 00 Yes [id number] 25mg Take 1 tablet by mouth in the morning. [facility] insulin degludec 200 unit/mL (3 mL) In 2021-07 00:00: 00 Yes [id number] 26U inject 26 Units under the skin daily. [facility] SERTraline 100 mg tablet 2021-07 00:00: 00 Yes [id number] 100mg Take 1 tablet by mouth in the morning. [facility] insulin lispro (HUMALOG KWIKPEN INSULIN) 100 unit/mL pen injector 2021-07 00:00: 00 Yes [id number] inject under the skin 3 (three) times daily before meals, est 40 units/day. [facility] diltiazem 120 mg tablet 2021-07 00:00: 00 Yes [id number] 120mg Take 1 tablet by mouth in the morning and 1 tablet at noon and 1 tablet in the evening. [facility] hydroCHLORO thiazide 25 mg tablet 2021-07 00:00: 00 Yes [id number] 25mg Take 1 tablet by mouth in the morning. [facility] insulin degludec 200 unit/mL (3 mL) InPn 2021-07 00:00: 00 Yes [id number] 26U inject 26 Units under the skin daily. [facility] SERTraline 100 mg tablet 2021-07 00:00: 00 Yes [id number] 100mg Take 1 tablet by mouth in the morning. [facility] insulin lispro (HUMALOG KWIKPEN INSULIN) 100 unit/mL pen injector 2021-07 00:00: 00 Yes [id number] inject under the skin 3 (three) times daily before meals, est 40 units/day. [facility] diltiazem 120 mg tablet 2021-07 00:00: 00 Yes [id number] 120mg Take 1 tablet by mouth in the morning and 1 tablet at noon and 1 tablet in the evening. [facility] hydroCHLORO thiazide 25 mg tablet 2021-07 00:00: 00 Yes [id number] 25mg Take 1 tablet by mouth in the morning. [facility] insulin degludec 200 unit/mL (3 mL) InPn 2021-07 00:00: 00 Yes [id number] 26U inject 26 Units under the skin daily. [facility] SERTraline 100 mg tablet 2021-07 00:00: 00 Yes [id number] 100mg Take 1 tablet by mouth in the morning. [facility] insulin lispro (HUMALOG KWIKPEN INSULIN) 100 unit/mL pen injector 2021-07 00:00: 00 Yes [id number] inject under the skin 3 (three) times daily before meals, est 40 units/day. [facility] diltiazem 120 mg tablet 2021-07 00:00: 00 Yes [id number] 120mg Take 1 tablet by mouth in the morning and 1 tablet at noon and 1 tablet in the evening. [facility] hydroCHLORO thiazide 25 mg tablet 2021-07 00:00: 00 Yes [id number] 25mg Take 1 tablet by mouth in the morning. [facility] insulin degludec 200 unit/mL (3 mL) In 2021-07 00:00: 00 Yes [id number] 26U inject 26 Units under the skin daily. [facility] SERTraline 100 mg tablet 2021-07 00:00: 00 Yes [id number] 100mg Take 1 tablet by mouth in the morning. [facility] insulin lispro (HUMALOG KWIKPEN INSULIN) 100 unit/mL pen injector 2021-07 00:00: 00 Yes [id number] inject under the skin 3 (three) times daily before meals, est 40 units/day. [facility] diltiazem 120 mg tablet 2021-07 00:00: 00 Yes [id number] 120mg Take 1 tablet by mouth in the morning and 1 tablet at noon and 1 tablet in the evening. [facility] hydroCHLORO thiazide 25 mg tablet 2021-07 00:00: 00 Yes [id number] 25mg Take 1 tablet by mouth in the morning. [facility] insulin degludec 200 unit/mL (3 mL) In 2021-07 00:00: 00 Yes [id number] 26U inject 26 Units under the skin daily. [facility] SERTraline 100 mg tablet 2021-07 00:00: 00 Yes [id number] 100mg Take 1 tablet by mouth in the morning. [facility] insulin lispro (HUMALOG KWIKPEN INSULIN) 100 unit/mL pen injector 2021-07 00:00: 00 Yes [id number] inject under the skin 3 (three) times daily before meals, est 40 units/day. [facility] diltiazem 120 mg tablet 2021-07 00:00: 00 Yes [id number] 120mg Take 1 tablet by mouth in the morning and 1 tablet at noon and 1 tablet in the evening. [facility] hydroCHLORO thiazide 25 mg tablet 2021-07 00:00: 00 Yes [id number] 25mg Take 1 tablet by mouth in the morning. [facility] insulin degludec 200 unit/mL (3 mL) In 2021-07 00:00: 00 Yes [id number] 26U inject 26 Units under the skin daily. [facility] SERTraline 100 mg tablet 2021-07 00:00: 00 Yes [id number] 100mg Take 1 tablet by mouth in the morning. [facility] insulin lispro (HUMALOG KWIKPEN INSULIN) 100 unit/mL pen injector 2021-07 00:00: 00 Yes [id number] inject under the skin 3 (three) times daily before meals, est 40 units/day. [facility] diltiazem 120 mg tablet 2021-07 00:00: 00 Yes [id number] 120mg Take 1 tablet by mouth in the morning and 1 tablet at noon and 1 tablet in the evening. [facility] hydroCHLORO thiazide 25 mg tablet 2021-07 00:00: 00 Yes [id number] 25mg Take 1 tablet by mouth in the morning. [facility] insulin degludec 200 unit/mL (3 mL) In 2021-07 00:00: 00 Yes [id number] 26U inject 26 Units under the skin daily. [facility] insulin lispro (HUMALOG KWIKPEN INSULIN) 100 unit/mL pen injector 2021-07 00:00: 00 Yes [id number] inject under the skin 3 (three) times daily before meals, est 40 units/day. [facility] diltiazem 120 mg tablet 2021-07 00:00: 00 Yes [id number] 120mg Take 1 tablet by mouth in the morning and 1 tablet at noon and 1 tablet in the evening. [facility] hydroCHLORO thiazide 25 mg tablet 2021-07 00:00: 00 Yes [id number] 25mg Take 1 tablet by mouth in the morning. [facility] insulin degludec 200 unit/mL (3 mL) In 2021-07 00:00: 00 Yes [id number] 26U inject 26 Units under the skin daily. [facility] insulin lispro (HUMALOG KWIKPEN INSULIN) 100 unit/mL pen injector 2021-07 00:00: 00 Yes [id number] inject under the skin 3 (three) times daily before meals, est 40 units/day. [facility] diltiazem 120 mg tablet 2021-07 00:00: 00 Yes [id number] 120mg Take 1 tablet by mouth in the morning and 1 tablet at noon and 1 tablet in the evening. [facility] hydroCHLORO thiazide 25 mg tablet 2021-07 00:00: 00 Yes [id number] 25mg Take 1 tablet by mouth in the morning. [facility] insulin degludec 200 unit/mL (3 mL) [facility] 2021-07 00:00: 00 Yes [id number] 26U inject 26 Units under the skin daily. [facility] insulin lispro (HUMALOG KWIKPEN INSULIN) 100 unit/mL pen injector 2021-07 00:00: 00 Yes [id number] inject under the skin 3 (three) times daily before meals, est 40 units/day. [facility] diltiazem 120 mg tablet 2021-07 00:00: 00 Yes [id number] 120mg Take 1 tablet by mouth in the morning and 1 tablet at noon and 1 tablet in the evening. [facility] hydroCHLORO thiazide 25 mg tablet 2021-07 00:00: 00 Yes [id number] 25mg Take 1 tablet by mouth in the morning. [facility] insulin degludec 200 unit/mL (3 mL) [facility] 2021-07 00:00: 00 Yes [id number] 26U inject 26 Units under the skin daily. [facility] insulin lispro (HUMALOG KWIKPEN INSULIN) 100 unit/mL pen injector 2021-07 00:00: 00 Yes [id number] inject under the skin 3 (three) times daily before meals, est 40 units/day. [facility] diltiazem 120 mg tablet 2021-07 00:00: 00 Yes [id number] 120mg Take 1 tablet by mouth in the morning and 1 tablet at noon and 1 tablet in the evening. [facility] hydroCHLORO thiazide 25 mg tablet 2021-07 00:00: 00 Yes [id number] 25mg Take 1 tablet by mouth in the morning. [facility] insulin degludec 200 unit/mL (3 mL) [facility] 2021-07 00:00: 00 Yes [id number] 26U inject 26 Units under the skin daily. [facility] insulin lispro (HUMALOG KWIKPEN INSULIN) 100 unit/mL pen injector 2021-07 00:00: 00 Yes [id number] inject under the skin 3 (three) times daily before meals, est 40 units/day. [facility] diltiazem 120 mg tablet 2021-07 00:00: 00 Yes [id number] 120mg Take 1 tablet by mouth in the morning and 1 tablet at noon and 1 tablet in the evening. [facility] hydroCHLORO thiazide 25 mg tablet 2021-07 00:00: 00 08-21 00:00 :00 No [id number] 25mg Take 1 tablet by mouth in the morning. [facility] insulin degludec 200 unit/mL (3 mL) In 2021-07 00:00: 00 08-21 00:00 :00 No [id number] 26U inject 26 Units under the skin daily. [facility] insulin lispro (HUMALOG KWIKPEN INSULIN) 100 unit/mL pen injector 2021-07 00:00: 00 08-21 00:00 :00 No [id number] inject under the skin 3 (three) times daily before meals, est 40 units/day. [facility] diltiazem 120 mg tablet 2021-07 00:00: 00 08-21 00:00 :00 No [id number] 120mg Take 1 tablet by mouth in the morning and 1 tablet at noon and 1 tablet in the evening. [facility] hydroCHLORO thiazide 25 mg tablet 2021-07 00:00: 00 08-21 00:00 :00 No [id number] 25mg Take 1 tablet by mouth in the morning. [facility] insulin degludec 200 unit/mL (3 mL) InPn 2021-07 00:00: 00 08-21 00:00 :00 No [id number] 26U inject 26 Units under the skin daily. [facility] insulin lispro (HUMALOG KWIKPEN INSULIN) 100 unit/mL pen injector 2021-07 00:00: 00 08-21 00:00 :00 No [id number] inject under the skin 3 (three) times daily before meals, est 40 units/day. [facility] diltiazem 120 mg tablet 2021-07 00:00: 00 08-21 00:00 :00 No [id number] 120mg Take 1 tablet by mouth in the morning and 1 tablet at noon and 1 tablet in the evening. [facility] hydroCHLORO thiazide 25 mg tablet 2021-07 00:00: 00 08-21 00:00 :00 No [id number] 25mg Take 1 tablet by mouth in the morning. [facility] insulin degludec 200 unit/mL (3 mL) InPn 2021-07 00:00: 00 08-21 00:00 :00 No [id number] 26U inject 26 Units under the skin daily. [facility] insulin lispro (HUMALOG KWIKPEN INSULIN) 100 unit/mL pen injector 2021-07 00:00: 00 08-21 00:00 :00 No [id number] inject under the skin 3 (three) times daily before meals, est 40 units/day. [facility] diltiazem 120 mg tablet 2021-07 00:00: 00 08-21 00:00 :00 No [id number] 120mg Take 1 tablet by mouth in the morning and 1 tablet at noon and 1 tablet in the evening. [facility] SERTraline 100 mg tablet 2021-07 00:00: 00 05-18 00:00 :00 No [id number] 100mg Take 1 tablet by mouth in the morning. [facility] SERTraline 100 mg tablet 2021-07 00:00: 00 05-18 00:00 :00 No [id number] 100mg Take 1 tablet by mouth in the morning. [facility] atorvastati n 40 mg tablet 2021-07 00:00: 00 08-15 00:00 :00 No [id number] 40mg Take 1 tablet by mouth at bedtime. [facility] atorvastati n 40 mg tablet 2021-07 00:00: 00 08-15 00:00 :00 No [id number] 40mg Take 1 tablet by mouth at bedtime. [facility] glucagon 1 mg/0.2 mL AtIn 2021-07 00:00: 00 05-13 04:59 :00 No [id number] 1mg inject 1 mg under the skin ONCE PRN for Other for up to 1 dose. [facility] glucagon 1 mg/0.2 mL AtIn 2021-07 00:00: 00 05-13 04:59 :00 No [id number] 1mg inject 1 mg under the skin ONCE PRN for Other for up to 1 dose. [facility] Diclofenac Sodium (VOLTAREN) 1 % gel 03-21 00:00: 00 Yes [id number] Apply to area(s) as needed for Pain (scale 7-10) or Pain (scale 4-6). [facility] traMADoL 50 mg tablet 03-21 00:00: 00 Yes [id number] 50mg Take 1 tablet by mouth in the morning and 1 tablet at noon and 1 tablet in the evening. Indication s: chronic pain [facility] Diclofenac Sodium (VOLTAREN) 1 % gel 2021-0 03-21 00:00: 00 Yes [id number] Apply to area(s) as needed for Pain (scale 7-10) or Pain (scale 4-6). [facility] traMADoL 50 mg tablet 2021-0 03-21 00:00: 00 Yes [id number] 50mg Take 1 tablet by mouth in the morning and 1 tablet at noon and 1 tablet in the evening. Indication s: chronic pain [facility] Diclofenac Sodium (VOLTAREN) 1 % gel 2021-0 03-21 00:00: 00 Yes [id number] Apply to area(s) as needed for Pain (scale 7-10) or Pain (scale 4-6). [facility] tra[facility] mg tablet 2021-0 03-21 00:00: 00 Yes [id number] 50mg Take 1 tablet by mouth in the morning and 1 tablet at noon and 1 tablet in the evening. Indication s: [facility] Diclofenac Sodium (VOLTAREN) 1 % gel 2021-0 03-21 00:00: 00 Yes [id number] Apply to area(s) as needed for Pain (scale 7-10) or Pain (scale 4-6). [facility] tra[facility]AD[facility] mg tablet 2021-0 03-21 00:00: 00 Yes [id number] 50mg Take 1 tablet by mouth in the morning and 1 tablet at noon and 1 tablet in the evening. Indication s: chronic pain [facility] Diclofenac Sodium (VOLTAREN) 1 % gel 2021-0 03-21 00:00: 00 Yes [id number] Apply to area(s) as needed for Pain (scale 7-10) or Pain (scale 4-6). [facility] tra[facility]AD[facility] mg tablet 2021-0 03-21 00:00: 00 Yes [id number] 50mg Take 1 tablet by mouth in the morning and 1 tablet at noon and 1 tablet in the evening. Indication s: chronic pain [facility] Diclofenac Sodium (VOLTAREN) 1 % gel 2021-0 03-21 00:00: 00 Yes [id number] Apply to area(s) as needed for Pain (scale 7-10) or Pain (scale 4-6). [facility] traMADoL 50 mg tablet 03-21 00:00: 00 Yes [id number] 50mg Take 1 tablet by mouth in the morning and 1 tablet at noon and 1 tablet in the evening. Indication s: chronic pain [facility] Diclofenac Sodium (VOLTAREN) 1 % gel 03-21 00:00: 00 Yes [id number] Apply to area(s) as needed for Pain (scale 7-10) or Pain (scale 4-6). [facility] traMADoL 50 mg tablet 03-21 00:00: 00 Yes [id number] 50mg Take 1 tablet by mouth in the morning and 1 tablet at noon and 1 tablet in the evening. Indication s: [facility] Diclofenac Sodium (VOLTAREN) 1 % gel 03-21 00:00: 00 Yes [id number] Apply to area(s) as needed for Pain (scale 7-10) or Pain (scale 4-6). [facility] traMADoL 50 mg tablet 03-21 00:00: 00 Yes [id number] 50mg Take 1 tablet by mouth in the morning and 1 tablet at noon and 1 tablet in the evening. Indication s: chronic pain [facility] Diclofenac Sodium (VOLTAREN) 1 % gel 03-21 00:00: 00 Yes [id number] Apply to area(s) as needed for Pain (scale 7-10) or Pain (scale 4-6). [facility] traMADoL 50 mg tablet 0 03-21 00:00: 00 Yes [id number] 50mg Take 1 tablet by mouth in the morning and 1 tablet at noon and 1 tablet in the evening. Indication s: chronic pain [facility] Diclofenac Sodium (VOLTAREN) 1 % gel 0 03-21 00:00: 00 Yes [id number] Apply to area(s) as needed for Pain (scale 7-10) or Pain (scale 4-6). [facility] traMADoL 50 mg tablet 2021-0 03-21 00:00: 00 Yes [id number] 50mg Take 1 tablet by mouth in the morning and 1 tablet at noon and 1 tablet in the evening. Indication s: chronic pain [facility] Diclofenac Sodium (VOLTAREN) 1 % gel 2021-0 03-21 00:00: 00 Yes [id number] Apply to area(s) as needed for Pain (scale 7-10) or Pain (scale 4-6). [facility] traMADoL 50 mg tablet 2021-0 03-21 00:00: 00 Yes [id number] 50mg Take 1 tablet by mouth in the morning and 1 tablet at noon and 1 tablet in the evening. Indication s: chronic pain [facility] Diclofenac Sodium (VOLTAREN) 1 % gel 0 03-21 00:00: 00 Yes [id number] Apply to area(s) as needed for Pain (scale 7-10) or Pain (scale 4-6). [facility] traMADoL 50 mg tablet 03-21 00:00: 00 Yes [id number] 50mg Take 1 tablet by mouth in the morning and 1 tablet at noon and 1 tablet in the evening. Indication s: chronic pain [facility] Diclofenac Sodium (VOLTAREN) 1 % gel 0 03-21 00:00: 00 Yes [id number] Apply to area(s) as needed for Pain (scale 7-10) or Pain (scale 4-6). [facility] traMADoL 50 mg tablet 2021-0 03-21 00:00: 00 Yes [id number] 50mg Take 1 tablet by mouth in the morning and 1 tablet at noon and 1 tablet in the evening. Indication s: chronic pain [facility] Diclofenac Sodium (VOLTAREN) 1 % gel 2021-0 03-21 00:00: 00 Yes [id number] Apply to area(s) as needed for Pain (scale 7-10) or Pain (scale 4-6). [facility] traMADoL 50 mg tablet 2021-0 03-21 00:00: 00 Yes [id number] 50mg Take 1 tablet by mouth in the morning and 1 tablet at noon and 1 tablet in the evening. Indication s: chronic pain [facility] Diclofenac Sodium (VOLTAREN) 1 % gel 0 03-21 00:00: 00 Yes [id number] Apply to area(s) as needed for Pain (scale 7-10) or Pain (scale 4-6). [facility] traMADoL 50 mg tablet 03-21 00:00: 00 Yes [id number] 50mg Take 1 tablet by mouth in the morning and 1 tablet at noon and 1 tablet in the evening. Indication s: chronic pain [facility] Diclofenac Sodium (VOLTAREN) 1 % gel 0 03-21 00:00: 00 Yes [id number] Apply to area(s) as needed for Pain (scale 7-10) or Pain (scale 4-6). [facility] traMADoL 50 mg tablet 03-21 00:00: 00 Yes [id number] 50mg Take 1 tablet by mouth in the morning and 1 tablet at noon and 1 tablet in the evening. Indication s: chronic pain [facility] Diclofenac Sodium (VOLTAREN) 1 % gel 2021-0 03-21 00:00: 00 Yes [id number] Apply to area(s) as needed for Pain (scale 7-10) or Pain (scale 4-6). [facility] Diclofenac Sodium (VOLTAREN) 1 % gel 2021-0 03-21 00:00: 00 Yes [id number] Apply to area(s) as needed for Pain (scale 7-10) or Pain (scale 4-6). [facility] Diclofenac Sodium (VOLTAREN) 1 % gel 2021-0 03-21 00:00: 00 Yes [id number] Apply to area(s) as needed for Pain (scale 7-10) or Pain (scale 4-6). [facility] Diclofenac Sodium (VOLTAREN) 1 % gel 2021-0 12 00:00: 00 Yes [id number] Apply to area(s) as needed for Pain (scale 7-10) or Pain (scale 4-6). [facility] Diclofenac Sodium (VOLTAREN) 1 % gel 2021-0 12 00:00: 00 Yes [id number] Apply to area(s) as needed for Pain (scale 7-10) or Pain (scale 4-6). [facility] Diclofenac Sodium (VOLTAREN) 1 % gel 03-21 00:00: 00 Yes [id number] Apply to area(s) as needed for Pain (scale 7-10) or Pain (scale 4-6). [facility] Diclofenac Sodium (VOLTAREN) 1 % gel 03-21 00:00: 00 Yes [id number] Apply to area(s) as needed for Pain (scale 7-10) or Pain (scale 4-6). [facility] Diclofenac Sodium (VOLTAREN) 1 % gel 03-21 00:00: 00 Yes [id number] Apply to area(s) as needed for Pain (scale 7-10) or Pain (scale 4-6). [facility] Diclofenac Sodium (VOLTAREN) 1 % gel 03-21 00:00: 00 Yes [id number] Apply to area(s) as needed for Pain (scale 7-10) or Pain (scale 4-6). [facility] traMADoL 50 mg tablet 03-21 00:00: 00 05-18 00:00 :00 No [id number] 50mg Take 1 tablet by mouth in the morning and 1 tablet at noon and 1 tablet in the evening. Indication s: chronic pain [facility] traMADoL 50 mg tablet 03-21 00:00: 00 05-18 00:00 :00 No [id number] 50mg Take 1 tablet by mouth in the morning and 1 tablet at noon and 1 tablet in the evening. Indication s: chronic pain [facility] methocarbam oL 500 mg tablet 03-21 00:00: 00 06-20 05:59 :00 No [id number] 500mg Take 1 tablet by mouth in the morning and 1 tablet in the evening. Do all this for 90 days. [facility] Diclofenac Epolamine (FLECTOR) 1.3 % patch 03-21 00:00: 00 06-20 05:59 :00 No [id number] Apply to skin 2 (two) times daily as needed for Pain (scale 7-10) or Pain (scale 4-6) for up to 90 days. [facility] ity [facility] methocarbam oL 500 mg tablet 03-21 00:00: 00 06-20 05:59 :00 No [id number] 500mg Take 1 tablet by mouth in the morning and 1 tablet in the evening. Do all this for 90 days. [facility] Diclofenac Epolamine (FLECTOR) 1.3 % patch 03-21 00:00: 00 06-20 05:59 :00 No [id number] Apply to skin 2 (two) times daily as needed for Pain (scale 7-10) or Pain (scale 4-6) for up to 90 days. [facility] mg tablet 03-21 00:00: 00 06-20 05:59 :00 No [id number] 500mg Take 1 tablet by mouth in the morning and 1 tablet in the evening. Do all this for 90 days. [facility] Diclofenac Epolamine (FLECTOR) 1.3 % patch 03-21 00:00: 00 06-20 05:59 :00 No [id number] Apply to skin 2 (two) times daily as needed for Pain (scale 7-10) or Pain (scale 4-6) for up to 90 days. [facility] methocarbam oL 500 mg tablet 03-21 00:00: 00 06-20 05:59 :00 No [id number] 500mg Take 1 tablet by mouth in the morning and 1 tablet in the evening. Do all this for 90 days. [facility] Diclofenac Epolamine (FLECTOR) 1.3 % patch 03-21 00:00: 00 06-20 05:59 :00 No [id number] Apply to skin 2 (two) times daily as needed for Pain (scale 7-10) or Pain (scale 4-6) for up to 90 days. [facility] 500 mg tablet 03-21 00:00: 00 06-20 05:59 :00 No [id number] 500mg Take 1 tablet by mouth in the morning and 1 tablet in the evening. Do all this for 90 days. [facility] Diclofenac Epolamine (FLECTOR) 1.3 % patch 03-21 00:00: 00 06-20 05:59 :00 No [id number] Apply to skin 2 (two) times daily as needed for Pain (scale 7-10) or Pain (scale 4-6) for up to 90 days. [facility] aliskiren (TEKTURNA) 150 mg tablet 02-09 00:00: 00 Yes [id number] 150mg Take 1 tablet by mouth in the morning. [facility] aliskiren (TEKTURNA) 150 mg tablet 02-09 00:00: 00 Yes [id number] 150mg Take 1 tablet by mouth in the morning. [facility] aliskiren (TEKTURNA) 150 mg tablet 02-09 00:00: 00 Yes [id number] 150mg Take 1 tablet by mouth in the morning. [facility] aliskiren (TEKTURNA) 150 mg tablet 02-09 00:00: 00 Yes [id number] 150mg Take 1 tablet by mouth in the morning. [facility] aliskiren (TEKTURNA) 150 mg tablet 02-09 00:00: 00 Yes [id number] 150mg Take 1 tablet by mouth in the morning. [facility] aliskiren (TEKTURNA) 150 mg tablet 02-09 00:00: 00 Yes [id number] 150mg Take 1 tablet by mouth in the morning. [facility] aliskiren (TEKTURNA) 150 mg tablet 02-09 00:00: 00 Yes [id number] 150mg Take 1 tablet by mouth in the morning. [facility] aliskiren (TEKTURNA) 150 mg tablet 02-09 00:00: 00 Yes [id number] 150mg Take 1 tablet by mouth in the morning. [facility] aliskiren (TEKTURNA) 150 mg tablet 02-09 00:00: 00 Yes [id number] 150mg Take 1 tablet by mouth in the morning. [facility] aliskiren (TEKTURNA) 150 mg tablet 02-09 00:00: 00 Yes [id number] 150mg Take 1 tablet by mouth in the morning. [facility] aliskiren (TEKTURNA) 150 mg tablet 02-09 00:00: 00 Yes [id number] 150mg Take 1 tablet by mouth in the morning. [facility] aliskiren (TEKTURNA) 150 mg tablet 02-09 00:00: 00 Yes [id number] 150mg Take 1 tablet by mouth in the morning. [facility] aliskiren (TEKTURNA) 150 mg tablet 02-09 00:00: 00 02-15 00:00 :00 No [id number] 150mg Take 1 tablet by mouth in the morning. [facility] aliskiren (TEKTURNA) 150 mg tablet 02-09 00:00: 00 02-15 00:00 :00 No [id number] 150mg Take 1 tablet by mouth in the morning. [facility] traMADoL 50 mg tablet 02-02 00:00: 00 03-21 00:00 :00 No [id number] 50mg Take 1 tablet by mouth in the morning and 1 tablet at noon and 1 tablet in the evening. Indication s: chronic pain [facility] traMADoL 50 mg tablet 02-02 00:00: 00 03-21 00:00 :00 No [id number] 50mg Take 1 tablet by mouth in the morning and 1 tablet at noon and 1 tablet in the evening. Indication s: chronic pain [facility] methocarbam oL (ROBAXIN) 500 mg tablet 01-25 00:00: 00 Yes [id number] 500mg Take 1 tablet by mouth 2 (two) times daily as needed for Pain (scale 4-6) or Pain (scale 7-10). [facility] methocarbam oL (ROBAXIN) 500 mg tablet 01-25 00:00: 00 Yes [id number] 500mg Take 1 tablet by mouth 2 (two) times daily as needed for Pain (scale 4-6) or Pain (scale 7-10). [facility] methocarbam oL (ROBAXIN) 500 mg tablet 01-25 00:00: 00 Yes [id number] 500mg Take 1 tablet by mouth 2 (two) times daily as needed for Pain (scale 4-6) or Pain (scale 7-10). [facility] methocarbam oL (ROBAXIN) 500 mg tablet 01-25 00:00: 00 Yes [id number] 500mg Take 1 tablet by mouth 2 (two) times daily as needed for Pain (scale 4-6) or Pain (scale 7-10). [facility] methocarbam oL (ROBAXIN) 500 mg tablet 01-25 00:00: 00 Yes [id number] 500mg Take 1 tablet by mouth 2 (two) times daily as needed for Pain (scale 4-6) or Pain (scale 7-10). [facility] methocarbam oL (ROBAXIN) 500 mg tablet 01-25 00:00: 00 Yes [id number] 500mg Take 1 tablet by mouth 2 (two) times daily as needed for Pain (scale 4-6) or Pain (scale 7-10). [facility] methocarbam oL (ROBAXIN) 500 mg tablet 01-25 00:00: 00 Yes [id number] 500mg Take 1 tablet by mouth 2 (two) times daily as needed for Pain (scale 4-6) or Pain (scale 7-10). [facility] methocarbam oL (ROBAXIN) 500 mg tablet 01-25 00:00: 00 Yes [id number] 500mg Take 1 tablet by mouth 2 (two) times daily as needed for Pain (scale 4-6) or Pain (scale 7-10). [facility] methocarbam oL (ROBAXIN) 500 mg tablet 01-25 00:00: 00 Yes [id number] 500mg Take 1 tablet by mouth 2 (two) times daily as needed for Pain (scale 4-6) or Pain (scale 7-10). [facility] methocarbam oL (ROBAXIN) 500 mg tablet 01-25 00:00: 00 Yes [id number] 500mg Take 1 tablet by mouth 2 (two) times daily as needed for Pain (scale 4-6) or Pain (scale 7-10). [facility] methocarbam oL (ROBAXIN) 500 mg tablet 01-25 00:00: 00 Yes [id number] 500mg Take 1 tablet by mouth 2 (two) times daily as needed for Pain (scale 4-6) or Pain (scale 7-10). [facility] methocarbam oL (ROBAXIN) 500 mg tablet 01-25 00:00: 00 Yes [id number] 500mg Take 1 tablet by mouth 2 (two) times daily as needed for Pain (scale 4-6) or Pain (scale 7-10). [facility] methocarbam oL (ROBAXIN) 500 mg tablet 01-25 00:00: 00 Yes [id number] 500mg Take 1 tablet by mouth 2 (two) times daily as needed for Pain (scale 4-6) or Pain (scale 7-10). [facility] methocarbam oL (ROBAXIN) 500 mg tablet 01-25 00:00: 00 Yes [id number] 500mg Take 1 tablet by mouth 2 (two) times daily as needed for Pain (scale 4-6) or Pain (scale 7-10). [facility] methocarbam oL (ROBAXIN) 500 mg tablet 01-25 00:00: 00 Yes [id number] 500mg Take 1 tablet by mouth 2 (two) times daily as needed for Pain (scale 4-6) or Pain (scale 7-10). [facility] methocarbam oL (ROBAXIN) 500 mg tablet 01-25 00:00: 00 Yes [id number] 500mg Take 1 tablet by mouth 2 (two) times daily as needed for Pain (scale 4-6) or Pain (scale 7-10). [facility] methocarbam oL (ROBAXIN) 500 mg tablet 01-25 00:00: 00 05-18 00:00 :00 No [id number] 500mg Take 1 tablet by mouth 2 (two) times daily as needed for Pain (scale 4-6) or Pain (scale 7-10). [facility] methocarbam oL (ROBAXIN) 500 mg tablet 7-19 00:00: 00 05-18 00:00 :00 No [id number] 500mg Take 1 tablet by mouth 2 (two) times daily as needed for Pain (scale 4-6) or Pain (scale 7-10). [facility] methocarbam oL (ROBAXIN) 500 mg tablet 2-08 00:00: 00 03-21 00:00 :00 No [id number] 750mg Take 1.5 tablets by mouth 2 (two) times daily. [facility] methocarbam oL (ROBAXIN) 500 mg tablet 2-08 00:00: 00 03-21 00:00 :00 No [id number] 750mg Take 1.5 tablets by mouth 2 (two) times daily. [facility] insulin degludec 200 unit/mL (3 mL) [facility] 2020-07 00:00: 00 Yes [id number] 26U inject 26 Units under the skin daily. [facility] atorvastati n 40 mg tablet 2020-07 00:00: 00 Yes [id number] 40mg Take 1 tablet by mouth at bedtime. [facility] hydroCHLORO thiazide 25 mg tablet 2020-07 00:00: 00 Yes [id number] 25mg Take 1 tablet by mouth daily. [facility] SERTraline 100 mg tablet 2020-07 00:00: 00 Yes [id number] 100mg Take 1 tablet by mouth daily. [facility] insulin degludec 200 unit/mL (3 mL) [facility] 2020-07 00:00: 00 Yes [id number] 26U inject 26 Units under the skin daily. [facility] atorvastati n 40 mg tablet 2020-07 00:00: 00 Yes [id number] 40mg Take 1 tablet by mouth at bedtime. [facility] hydroCHLORO thiazide 25 mg tablet 2020-07 00:00: 00 Yes [id number] 25mg Take 1 tablet by mouth daily. [facility] SERTraline 100 mg tablet 2020-07 00:00: 00 Yes [id number] 100mg Take 1 tablet by mouth daily. [facility] insulin degludec 200 unit/mL (3 mL) In 2020-07 00:00: 00 Yes [id number] 26U inject 26 Units under the skin daily. [facility] atorvastati n 40 mg tablet 2020-07 00:00: 00 Yes [id number] 40mg Take 1 tablet by mouth at bedtime. [facility] hydroCHLORO thiazide 25 mg tablet 2020-07 00:00: 00 Yes [id number] 25mg Take 1 tablet by mouth daily. [facility] SERTraline 100 mg tablet 2020-07 00:00: 00 Yes [id number] 100mg Take 1 tablet by mouth daily. [facility] insulin degludec 200 unit/mL (3 mL) [facility] 2020-07 00:00: 00 05-12 00:00 :00 No [id number] 26U inject 26 Units under the skin daily. [facility] atorvastati n 40 mg tablet 2020-07 00:00: 00 05-12 00:00 :00 No [id number] 40mg Take 1 tablet by mouth at bedtime. [facility] hydroCHLORO thiazide 25 mg tablet 2020-07 00:00: 00 05-12 00:00 :00 No [id number] 25mg Take 1 tablet by mouth daily. [facility] SERTraline 100 mg tablet 2020-07 00:00: 00 05-12 00:00 :00 No [id number] 100mg Take 1 tablet by mouth daily. [facility] insulin degludec 200 unit/mL (3 mL) [facility] 2020-07 00:00: 00 05-12 00:00 :00 No [id number] 26U inject 26 Units under the skin daily. [facility] atorvastati n 40 mg tablet 2020-07 00:00: 00 05-12 00:00 :00 No [id number] 40mg Take 1 tablet by mouth at bedtime. [facility] hydroCHLORO thiazide 25 mg tablet 2020-07 00:00: 00 05-12 00:00 :00 No [id number] 25mg Take 1 tablet by mouth daily. [facility] SERTraline 100 mg tablet 2020-07 00:00: 00 05-12 00:00 :00 No [id number] 100mg Take 1 tablet by mouth daily. [facility] Blood-Gluco se Meter,Jeff nuous (DEXCOM G6 OIL PROGRAM COMPLIANCE SPECIALIST) [facility] 2020-07 00:00: 00 Yes Use as directed [facility] Blood-Gluco se Transmitter (DEXCOM G6 TRANSMITTER ) [facility] 2020-07 00:00: 00 Yes Change every 90 days [facility] Blood-Gluco se Sensor (DEXCOM G6 SENSOR) 2020-07 00:00: 00 Yes Change sensor every 10 days [facility] Blood-Gluco se Meter,Jeff nuous (DEXCOM G6 OIL PROGRAM COMPLIANCE SPECIALIST) [facility] 2020-07 00:00: 00 Yes Use as directed [facility] Blood-Gluco se Transmitter (DEXCOM G6 TRANSMITTER ) 2020-07 00:00: 00 Yes Change every 90 days [facility] Blood-Gluco se Sensor (DEXCOM G6 SENSOR) 2020-07 00:00: 00 Yes Change sensor every 10 days [facility] Blood-Gluco se Meter,Jeff nuous (DEXCOM G6 OIL PROGRAM COMPLIANCE SPECIALIST) [facility] 2020-07 00:00: 00 Yes Use as directed [facility] Blood-Gluco se Transmitter (DEXCOM G6 TRANSMITTER ) [facility] 2020-07 00:00: 00 Yes Change every 90 days [facility] Blood-Gluco se Sensor (DEXCOM G6 SENSOR) 2020-07 00:00: 00 Yes Change sensor every 10 days [facility] Blood-Gluco se Meter,Jeff nuous (DEXCOM G6 OIL PROGRAM COMPLIANCE SPECIALIST) [facility] 2020-07 00:00: 00 Yes Use as directed [facility] Blood-Gluco se Transmitter (DEXCOM G6 TRANSMITTER ) 2020-07 00:00: 00 Yes Change every 90 days [facility] Blood-Gluco se Sensor (DEXCOM G6 SENSOR) 2020-07 00:00: 00 Yes Change sensor every 10 days [facility] Blood-Gluco se Meter,Jeff nuous (DEXCOM G6 OIL PROGRAM COMPLIANCE SPECIALIST) [facility] 2020-07 00:00: 00 Yes Use as directed [facility] Blood-Gluco se Transmitter (DEXCOM G6 TRANSMITTER ) 2020-07 00:00: 00 Yes Change every 90 days [facility] Blood-Gluco se Sensor (DEXCOM G6 SENSOR) 2020-07 00:00: 00 Yes Change sensor every 10 days [facility] Blood-Gluco se Meter,Jeff nuous (DEXCOM G6 OIL PROGRAM COMPLIANCE SPECIALIST) [facility] 2020-07 00:00: 00 Yes Use as directed [facility] Blood-Gluco se Transmitter (DEXCOM G6 TRANSMITTER ) 2020-07 00:00: 00 Yes Change every 90 days [facility] Blood-Gluco se Sensor (DEXCOM G6 SENSOR) 2020-07 00:00: 00 Yes Change sensor every 10 days [facility] Blood-Gluco se Meter,Jeff nuous (DEXCOM G6 OIL PROGRAM COMPLIANCE SPECIALIST) [facility] 2020-07 00:00: 00 Yes Use as directed [facility] Blood-Gluco se Transmitter (DEXCOM G6 TRANSMITTER ) 2020-07 00:00: 00 Yes Change every 90 days [facility] Blood-Gluco se Sensor (DEXCOM G6 SENSOR) 2020-07 00:00: 00 Yes Change sensor every 10 days [facility] Blood-Gluco se Meter,Jeff nuous (DEXCOM G6 OIL PROGRAM COMPLIANCE SPECIALIST) [facility] 2020-07 00:00: 00 Yes Use as directed [facility] Blood-Gluco se Transmitter (DEXCOM G6 TRANSMITTER ) 2020-07 00:00: 00 Yes Change every 90 days [facility] Blood-Gluco se Sensor (DEXCOM G6 SENSOR) 2020-07 00:00: 00 Yes Change sensor every 10 days [facility] Blood-Gluco se Meter,Jeff nuous (DEXCOM G6 OIL PROGRAM COMPLIANCE SPECIALIST) [facility] 2020-07 00:00: 00 Yes Use as directed [facility] Blood-Gluco se Transmitter (DEXCOM G6 TRANSMITTER ) 2020-07 00:00: 00 Yes Change every 90 days [facility] Blood-Gluco se Sensor (DEXCOM G6 SENSOR) 2020-07 00:00: 00 Yes Change sensor every 10 days [facility] Blood-Gluco se Meter,Jeff nuous (DEXCOM G6 OIL PROGRAM COMPLIANCE SPECIALIST) [facility] 2020-07 00:00: 00 Yes [facility] (DEXCOM G6 TRANSMITTER ) 2020-07 00:00: 00 Yes Change every 90 days [facility] Blood-Gluco se Sensor (DEXCOM G6 SENSOR) 2020-07 00:00: 00 Yes Change sensor every 10 days [facility] Blood-Gluco se Meter,Jeff nuous (DEXCOM G6 OIL PROGRAM COMPLIANCE SPECIALIST) [facility] 2020-07 00:00: 00 Yes Use as directed [facility] Blood-Gluco se Transmitter (DEXCOM G6 TRANSMITTER ) 2020-07 00:00: 00 Yes Change every 90 days [facility] Blood-Gluco se Sensor (DEXCOM G6 SENSOR) 2020-07 00:00: 00 Yes Change sensor every 10 days [facility] Blood-Gluco se Meter,Jeff nuous (DEXCOM G6 OIL PROGRAM COMPLIANCE SPECIALIST) [facility] 2020-07 00:00: 00 Yes Use as directed [facility] Blood-Gluco se Transmitter (DEXCOM G6 TRANSMITTER ) 2020-07 00:00: 00 Yes Change every 90 days [facility] Blood-Gluco se Sensor (DEXCOM G6 SENSOR) 2020-07 00:00: 00 Yes Change sensor every 10 days [facility] Blood-Gluco se Meter,Jeff nuous (DEXCOM G6 OIL PROGRAM COMPLIANCE SPECIALIST) [facility] 2020-07 00:00: 00 Yes Use as directed [facility] Blood-Gluco se Transmitter (DEXCOM G6 TRANSMITTER ) 2020-07 00:00: 00 Yes Change every 90 days [facility] Blood-Gluco se Sensor (DEXCOM G6 SENSOR) 2020-07 00:00: 00 Yes Change sensor every 10 days [facility] Blood-Gluco se Meter,Jeff nuous (DEXCOM G6 OIL PROGRAM COMPLIANCE SPECIALIST) [facility] 2020-07 00:00: 00 Yes Use as directed [facility] Blood-Gluco se Transmitter (DEXCOM G6 TRANSMITTER ) 2020-07 00:00: 00 Yes Change every 90 days [facility] Blood-Gluco se Sensor (DEXCOM G6 SENSOR) 2020-07 00:00: 00 Yes Change sensor every 10 days [facility] Blood-Gluco se Meter,Jeff nuous (DEXCOM G6 OIL PROGRAM COMPLIANCE SPECIALIST) [facility] 2020-07 00:00: 00 Yes Use as directed [facility] Blood-Gluco se Transmitter (DEXCOM G6 TRANSMITTER ) 2020-07 00:00: 00 Yes Change every 90 days [facility] Blood-Gluco se Sensor (DEXCOM G6 SENSOR) 2020-07 00:00: 00 Yes Change sensor every 10 days [facility] Blood-Gluco se Meter,Jeff nuous (DEXCOM G6 OIL PROGRAM COMPLIANCE SPECIALIST) [facility] 2020-07 00:00: 00 Yes Use as directed [facility] Blood-Gluco se Transmitter (DEXCOM G6 TRANSMITTER ) 2020-07 00:00: 00 Yes Change every 90 days [facility] Blood-Gluco se Sensor (DEXCOM G6 SENSOR) [facility] 2020-07 00:00: 00 Yes Change sensor every 10 days [facility] Blood-Gluco se Transmitter (DEXCOM G6 TRANSMITTER ) 2020-07 00:00: 00 Yes Change every 90 days [facility] Blood-Gluco se Sensor (DEXCOM G6 SENSOR) 2020-07 00:00: 00 Yes Change sensor every 10 days [facility] Blood-Gluco se Transmitter (DEXCOM G6 TRANSMITTER ) [place] 2020-07 00:00: 00 Yes Change every 90 days [facility] Blood-Gluco se Sensor (DEXCOM G6 SENSOR) 2020-07 00:00: 00 Yes Change sensor every 10 days [facility] Blood-Gluco se Transmitter (DEXCOM G6 TRANSMITTER ) 2020-07 00:00: 00 Yes Change every 90 days [facility] Blood-Gluco se Sensor (DEXCOM G6 SENSOR) [place] 2020-07 00:00: 00 Yes Change sensor every 10 days [facility] Blood-Gluco se Transmitter (DEXCOM G6 TRANSMITTER ) [place] 2020-07 00:00: 00 Yes Change every 90 days [facility] Blood-Gluco se Sensor (DEXCOM G6 SENSOR) 2020-07 00:00: 00 Yes Change sensor every 10 days [facility] Blood-Gluco se Transmitter (DEXCOM G6 TRANSMITTER ) [place] 2020-07 00:00: 00 Yes Change every 90 days [facility] Blood-Gluco se Sensor (DEXCOM G6 SENSOR) [place] 2020-07 00:00: 00 Yes Change sensor every 10 days [facility] Blood-Gluco se Transmitter (DEXCOM G6 TRANSMITTER ) [place] 2020-07 00:00: 00 Yes Change every 90 days [facility] Blood-Gluco se Sensor (DEXCOM G6 SENSOR) [place] 2020-07 00:00: 00 Yes Change sensor every 10 days [facility] Blood-Gluco se Transmitter (DEXCOM G6 TRANSMITTER ) [place] 2020-07 00:00: 00 Yes Change every 90 days [facility] Blood-Gluco se Sensor (DEXCOM G6 SENSOR) 2020-07 00:00: 00 Yes Change sensor every 10 days [facility] Blood-Gluco se Transmitter (DEXCOM G6 TRANSMITTER ) [place] 2020-07 00:00: 00 Yes Change every 90 days [facility] Blood-Gluco se Sensor (DEXCOM G6 SENSOR) 2020-07 00:00: 00 Yes Change sensor every 10 days [facility] Blood-Gluco se Transmitter (DEXCOM G6 TRANSMITTER ) 2020-07 00:00: 00 Yes Change every 90 days [facility] Blood-Gluco se Sensor (DEXCOM G6 SENSOR) [place] 2020-07 00:00: 00 Yes Change sensor every 10 days [facility] Blood-Gluco se Meter,Jeff nuous (DEXCOM G6 OIL PROGRAM COMPLIANCE SPECIALIST) [facility] 2020-07 00:00: 00 05-18 00:00 :00 No Use as directed [facility] Blood-Gluco se Meter,Jeff nuous (DEXCOM G6 OIL PROGRAM COMPLIANCE SPECIALIST) [facility] 2020-07 00:00: 00 05-18 00:00 :00 No Use as directed [facility] cholecalcif christina, vitamin D3, (VITAMIN D3) 1,000 unit tablet 2020-07 13:56: 05 Yes 1000U Take 1,000 Units by mouth daily. [facility] CYANOCOBALA MIN, VITAMIN B-12, (VITAMIN B-12 ORAL) 2020-07 13:56: 05 Yes Take by mouth daily. [facility] Dexlansopra zole (DEXILANT) 60 mg capsule 2020-07 13:56: 05 Yes Take by mouth. [facility] VITAMIN C 500 MG ORAL TAB 2020-07 13:56: 05 Yes 1 daily [facility] MULTI-VITAM IN ORAL 2020-07 13:56: 05 Yes 1 daily [facility] ASPIRIN 81 MG ORAL CHEW 2020-07 13:56: 05 Yes once daily [facility] cholecalcif christina, vitamin D3, (VITAMIN D3) 1,000 unit tablet 2020-07 13:56: 05 Yes 1000U Take 1,000 Units by mouth daily. [facility] ity [facility] CYANOCOBALA MIN, VITAMIN B-12, (VITAMIN B-12 ORAL) 2020-07 13:56: 05 Yes Take by mouth daily. [facility] ity [facility] Dexlansopra zole (DEXILANT) 60 mg capsule 2020-07 13:56: 05 Yes Take by mouth. [facility] VITAMIN C 500 MG ORAL TAB 2020-07 13:56: 05 Yes 1 daily [facility] MULTI-VITAM IN ORAL 2020-07 13:56: 05 Yes 1 daily [facility] ASPIRIN 81 MG ORAL CHEW 2020-07 13:56: 05 Yes once daily [facility] cholecalcif christina, vitamin D3, (VITAMIN D3) 1,000 unit tablet 2020-07 13:56: 05 Yes 1000U Take 1,000 Units by mouth daily. [facility] ity [facility] CYANOCOBALA MIN, VITAMIN B-12, (VITAMIN B-12 ORAL) 2020-07 13:56: 05 Yes Take by mouth daily. [facility] ity [facility] Dexlansopra zole (DEXILANT) 60 mg capsule 2020-07 13:56: 05 Yes Take by mouth. [facility] VITAMIN C 500 MG ORAL TAB 2020-07 13:56: 05 Yes 1 daily [facility] MULTI-VITAM IN ORAL 2020-07 13:56: 05 Yes 1 daily [facility] ASPIRIN 81 MG ORAL CHEW 2020-07 13:56: 05 Yes once daily [facility] cholecalcif christina, vitamin D3, (VITAMIN D3) 1,000 unit tablet 2020-07 13:56: 05 Yes 1000U Take 1,000 Units by mouth daily. [facility] CYANOCOBALA MIN, VITAMIN B-12, (VITAMIN B-12 ORAL) 2020-07 13:56: 05 Yes Take by mouth daily. [facility] Dexlansopra zole (DEXILANT) 60 mg capsule 2020-07 13:56: 05 Yes Take by mouth. [facility] VITAMIN C 500 MG ORAL TAB 2020-07 13:56: 05 Yes 1 daily [facility] MULTI-VITAM IN ORAL 2020-07 13:56: 05 Yes 1 daily [facility] Dexlansopra zole (DEXILANT) 60 mg capsule 2020-07 13:56: 05 Yes Take by mouth. [facility] VITAMIN C 500 MG ORAL TAB 2020-07 13:56: 05 Yes 1 daily [facility] MULTI-VITAM IN ORAL 2020-07 13:56: 05 Yes 1 daily [facility] Dexlansopra zole (DEXILANT) 60 mg capsule 2020-07 13:56: 05 Yes Take by mouth. [facility] VITAMIN C 500 MG ORAL TAB 2020-07 13:56: 05 Yes 1 daily [facility] MULTI-VITAM IN ORAL 2020-07 13:56: 05 Yes 1 daily [facility] Dexlansopra zole (DEXILANT) 60 mg capsule 2020-07 13:56: 05 Yes Take by mouth. [facility] VITAMIN C 500 MG ORAL TAB 2020-07 13:56: 05 Yes 1 daily [facility] MULTI-VITAM IN ORAL 2020-07 13:56: 05 Yes 1 daily [facility] Dexlansopra zole (DEXILANT) 60 mg capsule 2020-07 13:56: 05 Yes Take by mouth. [facility] VITAMIN C 500 MG ORAL TAB 2020-07 13:56: 05 Yes 1 daily [facility] MULTI-VITAM IN ORAL 2020-07 13:56: 05 Yes 1 daily [facility] Dexlansopra zole (DEXILANT) 60 mg capsule 2020-07 13:56: 05 Yes Take by mouth. [facility] VITAMIN C 500 MG ORAL TAB 2020-07 13:56: 05 Yes 1 daily [facility] MULTI-VITAM IN ORAL 2020-07 13:56: 05 Yes 1 daily [facility] Dexlansopra zole (DEXILANT) 60 mg capsule 2020-07 13:56: 05 Yes Take by mouth. [facility] VITAMIN C 500 MG ORAL TAB 2020-07 13:56: 05 Yes 1 daily [facility] MULTI-VITAM IN ORAL 2020-07 13:56: 05 Yes 1 daily [facility] Dexlansopra zole (DEXILANT) 60 mg capsule 2020-07 13:56: 05 Yes Take by mouth. [facility] VITAMIN C 500 MG ORAL TAB 2020-07 13:56: 05 Yes 1 daily [facility] MULTI-VITAM IN ORAL 2020-07 13:56: 05 Yes 1 daily [facility] ASPIRIN 81 MG ORAL CHEW 2020-07 13:56: 05 Yes once daily [facility] cholecalcif christina, vitamin D3, (VITAMIN D3) 1,000 unit tablet 2020-07 13:56: 05 Yes 1000U Take 1,000 Units by mouth daily. [facility] CYANOCOBALA MIN, VITAMIN B-12, (VITAMIN B-12 ORAL) 2020-07 13:56: 05 Yes Take by mouth daily. [facility] Dexlansopra zole (DEXILANT) 60 mg capsule 2020-07 13:56: 05 Yes Take by mouth. [facility] VITAMIN C 500 MG ORAL TAB 2020-07 13:56: 05 Yes 1 daily [facility] MULTI-VITAM IN ORAL 2020-07 13:56: 05 Yes 1 daily [facility] ASPIRIN 81 MG ORAL CHEW 2020-07 13:56: 05 Yes once daily [facility] cholecalcif christina, vitamin D3, (VITAMIN D3) 1,000 unit tablet 2020-07 13:56: 05 Yes 1000U Take 1,000 Units by mouth daily. [facility] CYANOCOBALA MIN, VITAMIN B-12, (VITAMIN B-12 ORAL) 2020-07 13:56: 05 Yes Take by mouth daily. [facility] Dexlansopra zole (DEXILANT) 60 mg capsule 2020-07 13:56: 05 Yes Take by mouth. [facility] VITAMIN C 500 MG ORAL TAB 2020-07 13:56: 05 Yes 1 daily [facility] MULTI-VITAM IN ORAL 2020-07 13:56: 05 Yes 1 daily [facility] ASPIRIN 81 MG ORAL CHEW 2020-07 13:56: 05 Yes once daily [facility] cholecalcif christina, vitamin D3, (VITAMIN D3) 1,000 unit tablet 2020-07 13:56: 05 Yes 1000U Take 1,000 Units by mouth daily. [facility] CYANOCOBALA MIN, VITAMIN B-12, (VITAMIN B-12 ORAL) 2020-07 13:56: 05 Yes Take by mouth daily. [facility] Dexlansopra zole (DEXILANT) 60 mg capsule 2020-07 13:56: 05 Yes Take by mouth. [facility] VITAMIN C 500 MG ORAL TAB 2020-07 13:56: 05 Yes 1 daily [facility] MULTI-VITAM IN ORAL 2020-07 13:56: 05 Yes 1 daily [facility] ASPIRIN 81 MG ORAL CHEW 2020-07 13:56: 05 Yes once daily [facility] cholecalcif christina, vitamin D3, (VITAMIN D3) 1,000 unit tablet 2020-07 13:56: 05 Yes 1000U Take 1,000 Units by mouth daily. [facility] CYANOCOBALA MIN, VITAMIN B-12, (VITAMIN B-12 ORAL) 2020-07 13:56: 05 Yes Take by mouth daily. [facility] Dexlansopra zole (DEXILANT) 60 mg capsule 2020-07 13:56: 05 Yes Take by mouth. [facility] VITAMIN C 500 MG ORAL TAB 2020-07 13:56: 05 Yes 1 daily [facility] 2020-07 13:56: 05 Yes 1 daily [facility] ASPIRIN 81 MG ORAL CHEW 2020-07 13:56: 05 Yes once daily [facility] cholecalcif christina, vitamin D3, (VITAMIN D3) 1,000 unit tablet 2020-07 13:56: 05 Yes 1000U Take 1,000 Units by mouth daily. [facility] CYANOCOBALA MIN, VITAMIN B-12, (VITAMIN B-12 ORAL) 2020-07 13:56: 05 Yes Take by mouth daily. [facility] Dexlansopra zole (DEXILANT) 60 mg capsule 2020-07 13:56: 05 Yes Take by mouth. [facility] VITAMIN C 500 MG ORAL TAB 2020-07 13:56: 05 Yes 1 daily [facility] MULTI-VITAM IN ORAL 2020-07 13:56: 05 Yes 1 daily [facility] ASPIRIN 81 MG ORAL CHEW 2020-07 13:56: 05 Yes once daily [facility] insulin lispro (HUMALOG KWIKPEN INSULIN) 100 unit/mL pen injector 03-22 00:00: 00 Yes [id number] inject under the skin 3 (three) times daily before meals, est 40 units/day. [facility] glucagon 1 mg/0.2 mL AtIn 03-22 00:00: 00 Yes [id number] 1mg inject 1 mg under the skin as needed for Other. [facility] insulin lispro (HUMALOG KWIKPEN INSULIN) 100 unit/mL pen injector 03-22 00:00: 00 Yes [id number] inject under the skin 3 (three) times daily before meals, est 40 units/day. [facility] glucagon 1 mg/0.2 mL AtIn 03-22 00:00: 00 Yes [id number] 1mg inject 1 mg under the skin as needed for Other. [facility] insulin lispro (HUMALOG KWIKPEN INSULIN) 100 unit/mL pen injector 03-22 00:00: 00 Yes [id number] inject under the skin 3 (three) times daily before meals, est 40 units/day. [facility] glucagon 1 mg/0.2 mL AtIn 03-22 00:00: 00 Yes [id number] 1mg inject 1 mg under the skin as needed for Other. [facility] insulin lispro (HUMALOG KWIKPEN INSULIN) 100 unit/mL pen injector 03-22 00:00: 00 05-12 00:00 :00 No [id number] inject under the skin 3 (three) times daily before meals, est 40 units/day. [facility] glucagon 1 mg/0.2 mL AtIn 03-22 00:00: 00 05-12 00:00 :00 No [id number] 1mg inject 1 mg under the skin as needed for Other. [facility] insulin lispro (HUMALOG KWIKPEN INSULIN) 100 unit/mL pen injector 03-22 00:00: 00 05-12 00:00 :00 No [id number] inject under the skin 3 (three) times daily before meals, est 40 units/day. [facility] glucagon 1 mg/0.2 mL AtIn 03-22 00:00: 00 05-12 00:00 :00 No [id number] 1mg inject 1 mg under the skin as needed for Other. [facility] DICLOFENAC EPOLAMINE 1.3 % patch 03-09 00:00: 00 03-21 00:00 :00 No [id number] APPLY ONE PATCH TO AFFECTED AREA TWICE A DAY NEEDED FOR PAIN (SCALE 1-3) OR PAIN (SCALE 4-6) (DO NOT APPLY TO DAMAGED SKIN, DO NOT WEAR WHILE BATHING OR SHOWERING, WASH HANDS AFTER HANDLING) [facility] DICLOFENAC SODIUM 1 % gel 03-09 00:00: 00 03-21 00:00 :00 No [id number] APPLY GEL TO AFFECTED AREA(S) EVERY 6 HOURS NEEDED FOR PAIN (SCALE 4-6) OR PAIN (SCALE 7-10) -(USE THE ENCLOSED DOSING CARD AND PATIENT INSTRUCTIO N SHEET FOR PROPER DOSING GUIDANCE OR DIRECTED BY YOUR DOCTOR. TOTAL AMOUNT USED EACH DAY SHOULD NOT EXCEED 32 GRAMS) [facility] DICLO[facility]OLAMINE 1.3 % patch 03-09 00:00: 00 03-21 00:00 :00 No [id number] APPLY ONE PATCH TO AFFECTED AREA TWICE A DAY NEEDED FOR PAIN (SCALE 1-3) OR PAIN (SCALE 4-6) (DO NOT APPLY TO DAMAGED SKIN, DO NOT WEAR WHILE BATHING OR SHOWERING, WASH HANDS AFTER HANDLING) [facility] DICLOFENAC SODIUM 1 % gel 03-09 00:00: 00 03-21 00:00 :00 No [id number] APPLY GEL TO AFFECTED AREA(S) EVERY 6 HOURS NEEDED FOR PAIN (SCALE 4-6) OR PAIN (SCALE 7-10) -(USE THE ENCLOSED DOSING CARD AND PATIENT INSTRUCTIO N SHEET FOR PROPER DOSING GUIDANCE OR DIRECTED BY YOUR DOCTOR. TOTAL AMOUNT USED EACH DAY SHOULD NOT EXCEED 32 GRAMS) [facility] diltiazem 120 mg tablet 01-15 00:00: 00 Yes [id number] 120mg Take 1 tablet by mouth 3 (three) times daily. [facility] Insulin Carmel, Disposable, (BD ULTRAFINE III MINI PEN) 31 gauge x 3/16" Ndle 01-15 00:00: 00 Yes [id number] 4 (four) times daily. [facility] diltiazem 120 mg tablet 01-15 00:00: 00 Yes [id number] 120mg Take 1 tablet by mouth 3 (three) times daily. [facility] Insulin Carmel, Disposable, (BD ULTRAFINE III MINI PEN) 31 gauge x 3/16" Ndle 01-15 00:00: 00 Yes [id number] 4 (four) times daily. [facility] diltiazem 120 mg tablet 01-15 00:00: 00 Yes [id number] 120mg Take 1 tablet by mouth 3 (three) times daily. [facility] Insulin Carmel, Disposable, (BD ULTRAFINE III MINI PEN) 31 gauge x 3/16" Ndle 01-15 00:00: 00 Yes [id number] 4 (four) times daily. [facility] Insulin Carmel, Disposable, (BD ULTRAFINE III MINI PEN) 31 gauge x 3/16" Ndle 01-15 00:00: 00 Yes [id number] 4 (four) times daily. [facility] Insulin Carmel, Disposable, (BD ULTRAFINE III MINI PEN) 31 gauge x 3/16" Ndle 01-15 00:00: 00 Yes [id number] 4 (four) times daily. [facility] Insulin Carmel, Disposable, (BD ULTRAFINE III MINI PEN) 31 gauge x 3/16" Ndle 01-15 00:00: 00 Yes [id number] 4 (four) times daily. [facility] Insulin Carmel, Disposable, (BD ULTRAFINE III MINI PEN) 31 gauge x 3/16" Ndle 01-15 00:00: 00 Yes [id number] 4 (four) times daily. [facility] Insulin Carmel, Disposable, (BD ULTRAFINE III MINI PEN) 31 gauge x 3/16" Ndle - 00:00: 00 Yes [id number] 4 (four) times daily. [facility] Insulin Carmel, Disposable, (BD ULTRAFINE III MINI PEN) 31 gauge x 3/16" Ndle - 00:00: 00 Yes [id number] 4 (four) times daily. [facility] Insulin Carmel, Disposable, (BD ULTRAFINE III MINI PEN) 31 gauge x 3/16" Ndle 2021-0 7-09 00:00: 00 Yes [id number] 4 (four) times daily. [facility] Insulin Carmel, Disposable, (BD ULTRAFINE III MINI PEN) 31 gauge x 3/16" Ndle 2021-0 7-09 00:00: 00 Yes [id number] 4 (four) times daily. [facility] Insulin Carmel, Disposable, (BD ULTRAFINE III MINI PEN) 31 gauge x 3/16" Ndle 2021-0 7-09 00:00: 00 Yes [id number] 4 (four) times daily. [facility] Insulin Carmel, Disposable, (BD ULTRAFINE III MINI PEN) 31 gauge x 3/16" Ndle 2021-0 7-09 00:00: 00 Yes [id number] 4 (four) times daily. [facility] Insulin Carmel, Disposable, (BD ULTRAFINE III MINI PEN) 31 gauge x 3/16" Ndle 2021-0 7-09 00:00: 00 Yes [id number] 4 (four) times daily. [facility] Insulin Carmel, Disposable, (BD ULTRAFINE III MINI PEN) 31 gauge x 3/16" Ndle 2021-0 7-09 00:00: 00 Yes [id number] 4 (four) times daily. [facility] Insulin Carmel, Disposable, (BD ULTRAFINE III MINI PEN) 31 gauge x 3/16" Ndle 2021-0 7-09 00:00: 00 Yes [id number] 4 (four) times daily. [facility] Insulin Carmel, Disposable, (BD ULTRAFINE III MINI PEN) 31 gauge x 3/16" Ndle 2021-0 7-09 00:00: 00 Yes [id number] 4 (four) times daily. [facility] Insulin Carmel, Disposable, (BD ULTRAFINE III MINI PEN) 31 gauge x 3/16" Ndle 2021-0 7-09 00:00: 00 Yes [id number] 4 (four) times daily. [facility] Insulin Carmel, Disposable, (BD ULTRAFINE III MINI PEN) 31 gauge x 3/16" Ndle 2021-0 7-09 00:00: 00 Yes [id number] 4 (four) times daily. [facility] ity [facility] Insulin Carmel, Disposable, (BD ULTRAFINE III MINI PEN) 31 gauge x 3/16" Ndle 0 7-09 00:00: 00 Yes [id number] 4 (four) times daily. [facility]y [facility] Insulin Carmel, Disposable, (BD ULTRAFINE III MINI PEN) 31 gauge x 3/16" Ndle 2020-0 7-09 00:00: 00 Yes [id number] 4 (four) times daily. [facility] Insulin Carmel, Disposable, (BD ULTRAFINE III MINI PEN) 31 gauge x 3/16" Ndle 0 7-09 00:00: 00 Yes [id number] 4 (four) times daily. [facility]y [facility] Insulin Carmel, Disposable, (BD ULTRAFINE III MINI PEN) 31 gauge x 3/16" Ndle 0 -09 00:00: 00 Yes [id number] 4 (four) times daily. [facility]ulin Carmel, Disposable, (BD ULTRAFINE III MINI PEN) 31 gauge x 3/16" Ndle 0 09 00:00: 00 Yes [id number] 4 (four) times daily. [facility] Insulin Carmel, Disposable, (BD ULTRAFINE III MINI PEN) 31 gauge x 3/16" Ndle 09 00:00: 00 Yes [id number] 4 (four) times daily. [facility] diltiazem 120 mg tablet 01-15 00:00: 00 05-12 00:00 :00 No [id number] 120mg Take 1 tablet by mouth 3 (three) times daily. [facility] diltiazem 120 mg tablet 01-15 00:00: 00 05-12 00:00 :00 No [id number] 120mg Take 1 tablet by mouth 3 (three) times daily. [facility] HYDROcodone -acetaminop hen (NORCO) 5-325 mg tablet 09-17 00:00: 00 Yes [id number] 1{tbl} Take 1 tablet by mouth 2 (two) times daily. [facility] HYDROcodone -acetaminop hen (NORCO) 5-325 mg tablet 2020-0 3-11 00:00: 00 Yes [id number] 1{tbl} Take 1 tablet by mouth 2 (two) times daily. [facility] HYDROcodone -acetaminop hen (NORCO) 5-325 mg tablet 2020-0 3-11 00:00: 00 Yes [id number] 1{tbl} Take 1 tablet by mouth 2 (two) times daily. [facility] HYDROcodone -acetaminop hen (NORCO) 5-325 mg tablet 2020-0 3-11 00:00: 00 Yes [id number] 1{tbl} Take 1 tablet by mouth 2 (two) times daily. [facility] HYDROcodone -acetaminop hen (NORCO) 5-325 mg tablet 2020-0 3-11 00:00: 00 Yes [id number] 1{tbl} Take 1 tablet by mouth 2 (two) times daily. [facility] HYDROcodone -acetaminop hen (NORCO) 5-325 mg tablet 2020-0 3-11 00:00: 00 Yes [id number] 1{tbl} Take 1 tablet by mouth 2 (two) times daily. [facility] HYDROcodone -acetaminop hen (NORCO) 5-325 mg tablet 2019-0 3-11 00:00: 00 Yes [id number] 1{tbl} Take 1 tablet by mouth 2 (two) times daily. [facility] HYDROcodone -acetaminop hen (NORCO) 5-325 mg tablet 2020-0 3-11 00:00: 00 Yes 1{tbl} Take 1 tablet by mouth 2 (two) times daily. [facility] HYDROcodone -acetaminop hen (NORCO) 5-325 mg tablet 2020-0 3-11 00:00: 00 Yes [id number] 1{tbl} Take 1 tablet by mouth 2 (two) times daily. [facility] HYDROcodone -acetaminop hen (NORCO) 5-325 mg tablet 2020-0 3-11 00:00: 00 Yes [id number] 1{tbl} Take 1 tablet by mouth 2 (two) times daily. [facility] HYDROcodone -acetaminop hen (NORCO) 5-325 mg tablet 2020-0 3-11 00:00: 00 Yes [id number] 1{tbl} Take 1 tablet by mouth 2 (two) times daily. [facility] HYDROcodone -acetaminop hen (NORCO) 5-325 mg tablet 3- 00:00: 00 Yes [id number] 1{tbl} Take 1 tablet by mouth 2 (two) times daily. [facility] HYDROcodone -acetaminop hen (NORCO) 5-325 mg tablet 3- 00:00: 00 Yes [id number] 1{tbl} Take 1 tablet by mouth 2 (two) times daily. [facility] HYDROcodone -acetaminop hen (NORCO) 5-325 mg tablet 09-17 00:00: 00 Yes [id number] 1{tbl} Take 1 tablet by mouth 2 (two) times daily. [facility] HYDROcodone -acetaminop hen (NORCO) 5-325 mg tablet 09-17 00:00: 00 Yes [id number] 1{tbl} Take 1 tablet by mouth 2 (two) times daily. [facility] [facility] -acetaminop hen (NORCO) 5-325 mg tablet 3 00:00: 00 Yes [id number] 1{tbl} Take 1 tablet by mouth 2 (two) times daily. [facility] HYDROcodone -acetaminop hen (NORCO) 5-325 mg tablet 09-17 00:00: 00 05-18 00:00 :00 No [id number] 1{tbl} Take 1 tablet by mouth 2 (two) times daily. [facility] HYDROcodone -acetaminop hen (NORCO) 5-325 mg tablet 3 00:00: 00 05-18 00:00 :00 No [id number] 1{tbl} Take 1 tablet by mouth 2 (two) times daily. [facility] codeine-gua ifenesin (CHERATUSSI N AC) 10-100 mg/5 mL solution 2-04 00:00: 00 03-21 00:00 :00 No [id number] 5mL Take 5 mL by mouth every 6 (six) hours as needed for Cough. [facility] codeine-gua ifenesin (CHERATUSSI N AC) 10-100 mg/5 mL solution 204 00:00: 00 03-21 00:00 :00 No [id number] 5mL Take 5 mL by mouth every 6 (six) hours as needed for Cough. [facility] acetone, urine, test (KETONE URINE TEST) strip 01-19 00:00: 00 Yes [id number] Use as directed as needed to check for ketones [facility] acetone, urine, test (KETONE URINE TEST) strip 01-19 00:00: 00 Yes [id number] Use as directed as needed to check for ketones [facility] acetone, urine, test (KETONE URINE TEST) strip 01-19 00:00: 00 Yes [id number] Use as directed as needed to check for ketones [facility] acetone, urine, test (KETONE URINE TEST) strip 01-19 00:00: 00 Yes [id number] Use as directed as needed to check for ketones [facility] acetone, urine, test (KETONE URINE TEST) strip 01-19 00:00: 00 Yes [id number] Use as directed as needed to check for ketones [facility] acetone, urine, test (KETONE URINE TEST) strip 01-19 00:00: 00 Yes [id number] Use as directed as needed to check for ketones [facility] acetone, urine, test (KETONE URINE TEST) strip 01-19 00:00: 00 Yes [id number] Use as directed as needed to check for ketones [facility] acetone, urine, test (KETONE URINE TEST) strip 01-19 00:00: 00 Yes [id number] Use as directed as needed to check for ketones [facility] acetone, urine, test (KETONE URINE TEST) strip 01-19 00:00: 00 Yes [id number] Use as directed as needed to check for ketones [facility] acetone, urine, test (KETONE URINE TEST) strip 01-19 00:00: 00 Yes [id number] Use as directed as needed to check for ketones [facility] acetone, urine, test (KETONE URINE TEST) strip 0 01-19 00:00: 00 Yes [id number] Use as directed as needed to check for ketones [facility] acetone, urine, test (KETONE URINE TEST) strip 0 01-19 00:00: 00 Yes [id number] Use as directed as needed to check for ketones [facility] acetone, urine, test (KETONE URINE TEST) strip 0 01-19 00:00: 00 Yes [id number] Use as directed as needed to check for ketones [facility] acetone, urine, test (KETONE URINE TEST) strip 0 01-19 00:00: 00 Yes [id number] Use as directed as needed to check for ketones [facility] acetone, urine, test (KETONE URINE TEST) strip 0 01-19 00:00: 00 Yes [id number] Use as directed as needed to check for ketones [facility] acetone, urine, test (KETONE URINE TEST) strip 0 01-19 00:00: 00 Yes [id number] Use as directed as needed to check for ketones [facility] acetone, urine, test (KETONE URINE TEST) strip 0 01-19 00:00: 00 Yes [id number] Use as directed as needed to check for ketones [facility] acetone, urine, test (KETONE URINE TEST) strip 0 01-19 00:00: 00 Yes [id number] Use as directed as needed to check for ketones [facility] acetone, urine, test (KETONE URINE TEST) strip 0 01-19 00:00: 00 Yes [id number] Use as directed as needed to check for ketones [facility] acetone, urine, test (KETONE URINE TEST) strip 0 01-19 00:00: 00 Yes [id number] Use as directed as needed to check for ketones [facility] acetone, urine, test (KETONE URINE TEST) strip 0 01-19 00:00: 00 Yes [id number] Use as directed as needed to check for ketones [facility] acetone, urine, test (KETONE URINE TEST) strip 01-19 00:00: 00 Yes [id number] Use as directed as needed to check for ketones [facility] acetone, urine, test (KETONE URINE TEST) strip 01-19 00:00: 00 Yes [id number] Use as directed as needed to check for ketones [facility] acetone, urine, test (KETONE URINE TEST) strip 01-19 00:00: 00 Yes [id number] Use as directed as needed to check for ketones [facility] acetone, urine, test (KETONE URINE TEST) strip 01-19 00:00: 00 Yes [id number] Use as directed as needed to check for ketones [facility] acetaminoph en 300 mg-codeine 30 mg tablet TAKE 1 TABLET BY MOUTH EVERY 4 TO 6 HOURS NEEDED FOR PAIN acetaminoph en 300 mg-codeine 30 mg tablet TAKE 1 TABLET BY MOUTH EVERY 4 TO 6 HOURS NEEDED FOR PAIN No acetaminop hen 300 mg-codeine 30 mg tablet TAKE 1 TABLET BY MOUTH EVERY 4 TO 6 HOURS NEEDED FOR PAIN [facility] Colace 100 mg capsule Take 1 capsule every day by oral route. Colace 100 mg capsule Take 1 capsule every day by oral route. No 1capsul e(s) Q1D Colace 100 mg capsule Take 1 capsule every day by oral route. [facility] diclofenac ER 100 mg tablet,exte nded release 24 hr Take 1 tablet every day by oral route. diclofenac ER 100 mg tablet,exte nded release 24 hr Take 1 tablet every day by oral route. No 1 Q1D diclofenac ER 100 mg tablet,ext ended release 24 hr Take 1 tablet every day by oral route. [facility] doxycycline hyclate 100 mg capsule Take 1 capsule twice a day by oral route for 14 days. doxycycline hyclate 100 mg capsule Take 1 capsule twice a day by oral route for 14 days. No 1capsul e(s) BID doxycyclin e hyclate 100 mg capsule Take 1 capsule twice a day by oral route for 14 days. [facility] hydrocodone 5 mg-acetamin ophen 325 mg tablet Take 1 tablet every 6 hours by oral route. hydrocodone 5 mg-acetamin ophen 325 mg tablet Take 1 tablet every 6 hours by oral route. No 1 Q6H hydrocodon e 5 mg-acetami nophen 325 mg tablet Take 1 tablet every 6 hours by oral route. [facility] ondansetron 4 mg disintegrat ing tablet Place 1 tablet twice a day by translingua l route. ondansetron 4 mg disintegrat ing tablet Place 1 tablet twice a day by translingua l route. No 1 BID ondansetro n 4 mg disintegra ting tablet Place 1 tablet twice a day by translingu al route. [facility] tramadol 50 mg tablet Take 1 tablet every 6 hours by oral route. tramadol 50 mg tablet Take 1 tablet every 6 hours by oral route. No 1 Q6H tramadol 50 mg tablet Take 1 tablet every 6 hours by oral route. [facility] acetaminoph en 300 mg-codeine 30 mg tablet TAKE 1 TABLET BY MOUTH EVERY 4 TO 6 HOURS NEEDED FOR PAIN acetaminoph en 300 mg-codeine 30 mg tablet TAKE 1 TABLET BY MOUTH EVERY 4 TO 6 HOURS NEEDED FOR PAIN No acetaminop hen 300 mg-codeine 30 mg tablet TAKE 1 TABLET BY MOUTH EVERY 4 TO 6 HOURS NEEDED FOR PAIN [facility] Colace 100 mg capsule Take 1 capsule every day by oral route. Colace 100 mg capsule Take 1 capsule every day by oral route. No 1capsul e(s) Q1D Colace 100 mg capsule Take 1 capsule every day by oral route. [facility] diclofenac ER 100 mg tablet,exte nded release 24 hr Take 1 tablet every day by oral route. diclofenac ER 100 mg tablet,exte nded release 24 hr Take 1 tablet every day by oral route. No 1 Q1D diclofenac ER 100 mg tablet,ext ended release 24 hr Take 1 tablet every day by oral route. [facility] doxycycline hyclate 100 mg capsule Take 1 capsule twice a day by oral route for 14 days. doxycycline hyclate 100 mg capsule Take 1 capsule twice a day by oral route for 14 days. No 1capsul e(s) BID doxycyclin e hyclate 100 mg capsule Take 1 capsule twice a day by oral route for 14 days. [facility] hydrocodone 5 mg-acetamin ophen 325 mg tablet Take 1 tablet every 6 hours by oral route. hydrocodone 5 mg-acetamin ophen 325 mg tablet Take 1 tablet every 6 hours by oral route. No 1 Q6H hydrocodon e 5 mg-acetami nophen 325 mg tablet Take 1 tablet every 6 hours by oral route. [facility] ondansetron 4 mg disintegrat ing tablet Place 1 tablet twice a day by translingua l route. ondansetron 4 mg disintegrat ing tablet Place 1 tablet twice a day by translingua l route. No 1 BID ondansetro n 4 mg disintegra ting tablet Place 1 tablet twice a day by translingu al route. [facility] tramadol 50 mg tablet Take 1 tablet every 6 hours by oral route. tramadol 50 mg tablet Take 1 tablet every 6 hours by oral route. No 1 Q6H tramadol 50 mg tablet Take 1 tablet every 6 hours by oral route. [facility] acetaminoph en 300 mg-codeine 30 mg tablet TAKE 1 TABLET BY MOUTH EVERY 4 TO 6 HOURS NEEDED FOR PAIN acetaminoph en 300 mg-codeine 30 mg tablet TAKE 1 TABLET BY MOUTH EVERY 4 TO 6 HOURS NEEDED FOR PAIN No acetaminop hen 300 mg-codeine 30 mg tablet TAKE 1 TABLET BY MOUTH EVERY 4 TO 6 HOURS NEEDED FOR PAIN [facility] Colace 100 mg capsule Take 1 capsule every day by oral route. Colace 100 mg capsule Take 1 capsule every day by oral route. No 1capsul e(s) Q1D Colace 100 mg capsule Take 1 capsule every day by oral route. [facility] diclofenac ER 100 mg tablet,exte nded release 24 hr Take 1 tablet every day by oral route. diclofenac ER 100 mg tablet,exte nded release 24 hr Take 1 tablet every day by oral route. No 1 Q1D diclofenac ER 100 mg tablet,ext ended release 24 hr Take 1 tablet every day by oral route. [facility] doxycycline hyclate 100 mg capsule Take 1 capsule twice a day by oral route for 14 days. doxycycline hyclate 100 mg capsule Take 1 capsule twice a day by oral route for 14 days. No 1capsul e(s) BID doxycyclin e hyclate 100 mg capsule Take 1 capsule twice a day by oral route for 14 days. [facility] hydrocodone 5 mg-acetamin ophen 325 mg tablet Take 1 tablet every 6 hours by oral route. hydrocodone 5 mg-acetamin ophen 325 mg tablet Take 1 tablet every 6 hours by oral route. No 1 Q6H hydrocodon e 5 mg-acetami nophen 325 mg tablet Take 1 tablet every 6 hours by oral route. [facility] ondansetron 4 mg disintegrat ing tablet Place 1 tablet twice a day by translingua l route. ondansetron 4 mg disintegrat ing tablet Place 1 tablet twice a day by translingua l route. No 1 BID ondansetro n 4 mg disintegra ting tablet Place 1 tablet twice a day by translingu al route. [facility] tramadol 50 mg tablet Take 1 tablet every 6 hours by oral route. tramadol 50 mg tablet Take 1 tablet every 6 hours by oral route. No 1 Q6H tramadol 50 mg tablet Take 1 tablet every 6 hours by oral route. [facility] acetaminoph en 300 mg-codeine 30 mg tablet TAKE 1 TABLET BY MOUTH EVERY 4 TO 6 HOURS NEEDED FOR PAIN acetaminoph en 300 mg-codeine 30 mg tablet TAKE 1 TABLET BY MOUTH EVERY 4 TO 6 HOURS NEEDED FOR PAIN No acetaminop hen 300 mg-codeine 30 mg tablet TAKE 1 TABLET BY MOUTH EVERY 4 TO 6 HOURS NEEDED FOR PAIN [facility] diclofenac ER 100 mg tablet,exte nded release 24 hr Take 1 tablet every day by oral route. diclofenac ER 100 mg tablet,exte nded release 24 hr Take 1 tablet every day by oral route. No 1 Q1D diclofenac ER 100 mg tablet,ext ended release 24 hr Take 1 tablet every day by oral route. [facility] hydrocodone 5 mg-acetamin ophen 325 mg tablet Take 1 tablet every 6 hours by oral route. hydrocodone 5 mg-acetamin ophen 325 mg tablet Take 1 tablet every 6 hours by oral route. No 1 Q6H hydrocodon e 5 mg-acetami nophen 325 mg tablet Take 1 tablet every 6 hours by oral route. [facility] tramadol 50 mg tablet Take 1 tablet every 6 hours by oral route. tramadol 50 mg tablet Take 1 tablet every 6 hours by oral route. No 1 Q6H tramadol 50 mg tablet Take 1 tablet every 6 hours by oral route. [facility] acetaminoph en 300 mg-codeine 30 mg tablet TAKE 1 TABLET BY MOUTH EVERY 4 TO 6 HOURS NEEDED FOR PAIN acetaminoph en 300 mg-codeine 30 mg tablet TAKE 1 TABLET BY MOUTH EVERY 4 TO 6 HOURS NEEDED FOR PAIN No acetaminop hen 300 mg-codeine 30 mg tablet TAKE 1 TABLET BY MOUTH EVERY 4 TO 6 HOURS NEEDED FOR PAIN [facility] diclofenac ER 100 mg tablet,exte nded release 24 hr Take 1 tablet every day by oral route. diclofenac ER 100 mg tablet,exte nded release 24 hr Take 1 tablet every day by oral route. No 1 Q1D diclofenac ER 100 mg tablet,ext ended release 24 hr Take 1 tablet every day by oral route. [facility] hydrocodone 5 mg-acetamin ophen 325 mg tablet Take 1 tablet every 6 hours by oral route. hydrocodone 5 mg-acetamin ophen 325 mg tablet Take 1 tablet every 6 hours by oral route. No 1 Q6H hydrocodon e 5 mg-acetami nophen 325 mg tablet Take 1 tablet every 6 hours by oral route. [facility] tramadol 50 mg tablet Take 1 tablet every 6 hours by oral route. tramadol 50 mg tablet Take 1 tablet every 6 hours by oral route. No 1 Q6H tramadol 50 mg tablet Take 1 tablet every 6 hours by oral route. [facility] acetaminoph en 300 mg-codeine 30 mg tablet TAKE 1 TABLET BY MOUTH EVERY 4 TO 6 HOURS NEEDED FOR PAIN acetaminoph en 300 mg-codeine 30 mg tablet TAKE 1 TABLET BY MOUTH EVERY 4 TO 6 HOURS NEEDED FOR PAIN No acetaminop hen 300 mg-codeine 30 mg tablet TAKE 1 TABLET BY MOUTH EVERY 4 TO 6 HOURS NEEDED FOR PAIN [facility] tramadol 50 mg tablet Take 1 tablet every 6 hours by oral route. tramadol 50 mg tablet Take 1 tablet every 6 hours by oral route. No 1 Q6H tramadol 50 mg tablet Take 1 tablet every 6 hours by oral route. [facility] tramadol 50 mg tablet Take 1 tablet every 6 hours by oral route. tramadol 50 mg tablet Take 1 tablet every 6 hours by oral route. No 1 Q6H tramadol 50 mg tablet Take 1 tablet every 6 hours by oral route. [facility] tramadol 50 mg tablet Take 1 tablet every 6 hours by oral route. tramadol 50 mg tablet Take 1 tablet every 6 hours by oral route. No 1 Q6H tramadol 50 mg tablet Take 1 tablet every 6 hours by oral route. [facility] tramadol 50 mg tablet Take 1 tablet every 6 hours by oral route. tramadol 50 mg tablet Take 1 tablet every 6 hours by oral route. No 1 Q6H tramadol 50 mg tablet Take 1 tablet every 6 hours by oral route. [facility] acetaminoph en 300 mg-codeine 30 mg tablet TAKE 1 TABLET BY MOUTH EVERY 4 TO 6 HOURS NEEDED FOR PAIN acetaminoph en 300 mg-codeine 30 mg tablet TAKE 1 TABLET BY MOUTH EVERY 4 TO 6 HOURS NEEDED FOR PAIN No acetaminop hen 300 mg-codeine 30 mg tablet TAKE 1 TABLET BY MOUTH EVERY 4 TO 6 HOURS NEEDED FOR PAIN [facility] tramadol 50 mg tablet Take 1 tablet every 6 hours by oral route. tramadol 50 mg tablet Take 1 tablet every 6 hours by oral route. No 1 Q6H tramadol 50 mg tablet Take 1 tablet every 6 hours by oral route. [facility] acetaminoph en 300 mg-codeine 30 mg tablet TAKE 1 TABLET BY MOUTH EVERY 4 TO 6 HOURS NEEDED FOR PAIN acetaminoph en 300 mg-codeine 30 mg tablet TAKE 1 TABLET BY MOUTH EVERY 4 TO 6 HOURS NEEDED FOR PAIN No acetaminop hen 300 mg-codeine 30 mg tablet TAKE 1 TABLET BY MOUTH EVERY 4 TO 6 HOURS NEEDED FOR PAIN [facility] tramadol 50 mg tablet Take 1 tablet every 6 hours by oral route. tramadol 50 mg tablet Take 1 tablet every 6 hours by oral route. No 1 Q6H tramadol 50 mg tablet Take 1 tablet every 6 hours by oral route. [facility] acetaminoph en 300 mg-codeine 30 mg tablet TAKE 1 TABLET BY MOUTH EVERY 4 TO 6 HOURS NEEDED FOR PAIN acetaminoph en 300 mg-codeine 30 mg tablet TAKE 1 TABLET BY MOUTH EVERY 4 TO 6 HOURS NEEDED FOR PAIN No acetaminop hen 300 mg-codeine 30 mg tablet TAKE 1 TABLET BY MOUTH EVERY 4 TO 6 HOURS NEEDED FOR PAIN [facility] tramadol 50 mg tablet Take 1 tablet every 6 hours by oral route. tramadol 50 mg tablet Take 1 tablet every 6 hours by oral route. No 1 Q6H tramadol 50 mg tablet Take 1 tablet every 6 hours by oral route. [facility] Immunizations Ordered Immunization Name Filled Immunization Name Date Status Comments Source Influenza Virus Vaccine Quad IM 2016-06-06 00:00:[address] [facility] Influenza Virus Vaccine Quad IM 2016-06-06 00:00:[address] [facility] Influenza Virus Vaccine Quad IM 2016-06-06 00:00:[address] [facility] Influenza Virus Vaccine Quad IM 2016-06-06 00:00:[address] [facility] Influenza Virus Vaccine Quad IM 2016-06-06 00:00:[address] [facility] Influenza Virus Vaccine Quad IM 2016-06-06 00:00:[address] [facility] Influenza Virus Vaccine Quad IM 2016-06-06 00:00:[address] [facility] Influenza Virus Vaccine Quad IM 2016-06-06 00:00:[address] [facility] Influenza Virus Vaccine Quad IM 2016-06-06 00:00:[address] [facility] Influenza Virus Vaccine Quad IM 2016-06-06 00:00:[address] [facility] Influenza Virus Vaccine Quad IM 2016-06-06 00:00:[address] [facility] Influenza Virus Vaccine Quad IM 2016-06-06 00:00:[address] [facility] Influenza Virus Vaccine Quad IM 2016-06-06 00:00:[address] [facility] Influenza Virus Vaccine Quad IM 3+ YRS 2016-06-06 00:00:[address] [facility] Influenza Virus Vaccine (3+ yrs) 2013-04-25 00:00:[address] [facility] Influenza Virus Vaccine (3+ yrs) 2013-04-25 00:00:[address] [facility] Influenza Virus Vaccine (3+ yrs) 2013-04-25 00:00:[address] [facility] Influenza Virus Vaccine (3+ yrs) 2013-04-25 00:00:[address] [facility] Influenza Virus Vaccine (3+ yrs) 2013-04-25 00:00:[address] [facility] Influenza Virus Vaccine (3+ yrs) 2013-04-25 00:00:[address] [facility] Influenza Virus Vaccine (3+ yrs) 2013-04-25 00:00:[address] [facility] Influenza Virus Vaccine (3+ yrs) 2013-04-25 00:00:[address] [facility] Influenza Virus Vaccine (3+ yrs) 2013-04-25 00:00:[address] [facility] Influenza Virus Vaccine (3+ yrs) 2013-04-25 00:00:[address] [facility] Influenza Virus Vaccine (3+ yrs) 2013-04-25 00:00:[address] [facility] Influenza Virus Vaccine (3+ yrs) 2013-04-25 00:00:[address] [facility] Influenza Virus Vaccine (3+ yrs) 2013-04-25 00:00:[address] [facility] Influenza Virus Vaccine (3+ yrs) 2013-04-25 00:00:[address] [facility] Influenza Virus Vaccine 2012-07-24 00:00:[address] [facility] Influenza Virus Vaccine 2012-07-24 00:00:[address] [facility] Influenza Virus Vaccine 2012-07-24 00:00:[address] [facility] Influenza Virus Vaccine 2012-07-24 00:00:[address] [facility] Influenza Virus Vaccine 2012-07-24 00:00:[address] [facility] Influenza Virus Vaccine 2012-07-24 00:00:[address] [facility] Influenza Virus Vaccine 2012-07-24 00:00:[address] [facility] Influenza Virus Vaccine 2012-07-24 00:00:[address] [facility] Influenza Virus Vaccine 2012-07-24 00:00:[address] [facility] Influenza Virus Vaccine 2012-07-24 00:00:[address] [facility] Influenza Virus Vaccine 2012-07-24 00:00:[address] [facility] Influenza Virus Vaccine 2012-07-24 00:00:[address] [facility] Influenza Virus Vaccine 2012-07-24 00:00:[address] [facility] Influenza Virus Vaccine 2012-07-24 00:00:[address] [facility] Influenza Virus Vaccine Unknown Completed [facility] Influenza Virus Vaccine (3+ yrs) Unknown Completed [facility] Influenza Virus Vaccine Quad IM 3+ YRS Unknown Completed [facility] Influenza Virus Vaccine Unknown Completed [facility] Influenza Virus Vaccine (3+ yrs) Unknown Completed [facility] Influenza Virus Vaccine Quad IM 3+ YRS Unknown Completed [facility] Influenza Virus Vaccine Unknown Completed [facility] Influenza Virus Vaccine (3+ yrs) Unknown Completed [facility] Influenza Virus Vaccine Quad IM 3+ YRS Unknown Completed [facility] Influenza Virus Vaccine Unknown Completed [facility] Influenza Virus Vaccine (3+ yrs) Unknown Completed [facility] Influenza Virus Vaccine Quad IM 3+ YRS Unknown Completed [facility] Influenza Virus Vaccine Unknown Completed [facility] Influenza Virus Vaccine (3+ yrs) Unknown Completed [facility] Influenza Virus Vaccine Quad IM 3+ YRS Unknown Completed [facility] Influenza Virus Vaccine Unknown Completed [facility] Influenza Virus Vaccine (3+ yrs) Unknown Completed [facility] Influenza Virus Vaccine Quad IM 3+ YRS Unknown Completed [facility] Influenza Virus Vaccine Unknown Completed [facility] Influenza Virus Vaccine (3+ yrs) Unknown Completed [facility] Influenza Virus Vaccine Quad IM 3+ YRS Unknown Completed [facility] Influenza Virus Vaccine Unknown Completed [facility] Influenza Virus Vaccine (3+ yrs) Unknown Completed [facility] Influenza Virus Vaccine Quad IM 3+ YRS Unknown Completed [facility] Influenza Virus Vaccine Unknown Completed [facility] Influenza Virus Vaccine (3+ yrs) Unknown Completed [facility] Influenza Virus Vaccine Quad IM 3+ YRS Unknown Completed [facility] Influenza Virus Vaccine Unknown Completed [facility] Influenza Virus Vaccine (3+ yrs) Unknown Completed [facility] Influenza Virus Vaccine Quad IM 3+ YRS Unknown Completed [facility] Influenza Virus Vaccine Unknown Completed [facility] Influenza Virus Vaccine (3+ yrs) Unknown Completed [facility] Influenza Virus Vaccine Quad IM 3+ YRS Unknown Completed [facility] Vital Signs Vital Name Observation Time Observation Value Comments S ource Systolic blood pressure 2023-08-21 18:46:00 149 mm[Hg] [facility] Diastolic blood pressure 2023-08-21 18:46:00 81 mm[Hg] [facility] Heart rate 2023-08-21 18:46:00 95 /min [facility] Body temperature 2023-08-21 18:45:[address] [facility] Respiratory rate 2023-08-21 18:45:00 21 /min [facility] Body height 2023-08-21 18:45:00 152.4 cm [facility] Body weight 2023-08-21 18:45:00 74.98 kg [facility] BMI 2023-08-21 18:45:00 32.28 kg/m2 [facility] Oxygen saturation in Arterial blood by Pulse oximetry 2023-08-21 18:45:00 98 /min [facility] Systolic blood pressure 2023-07-16 15:00:00 121 mm[Hg] [facility] Diastolic blood pressure 2023-07-16 15:00:00 69 mm[Hg] [facility] Heart rate 2023-07-16 15:00:00 103 /min [facility] Body temperature 2023-07-16 15:00:[address] [facility] Respiratory rate 2023-07-16 15:00:00 16 /min [facility] Body height 2023-07-16 15:00:00 157.5 cm [facility] Body weight 2023-07-16 15:00:00 70.308 kg [facility] BMI 2023-07-16 15:00:00 28.35 kg/m2 [facility] Oxygen saturation in Arterial blood by Pulse oximetry 2023-07-16 15:00:00 97 /min [facility] Systolic blood pressure 2023-05-18 19:06:00 121 mm[Hg] [facility] Diastolic blood pressure 2023-05-18 19:06:00 77 mm[Hg] [facility] Heart rate 2023-05-18 19:06:00 93 /min [facility] Body temperature 2023-05-18 19:06:[address] [facility] Respiratory rate 2023-05-18 19:06:00 18 /min [facility] Body height 2023-05-18 19:06:00 157.5 cm [facility] Body weight 2023-05-18 19:06:00 72.893 kg [facility] BMI 2023-05-18 19:06:00 29.39 kg/m2 [facility] Oxygen saturation in Arterial blood by Pulse oximetry 2023-05-18 19:06:00 100 /min r/a [facility] Systolic blood pressure 2023-02-15 18:24:00 109 mm[Hg] [facility] Diastolic blood pressure 2023-02-15 18:24:00 71 mm[Hg] [facility] Heart rate 2023-02-15 18:24:00 97 /min Unive [facility] Body temperature 2023-02-15 18:24:[address] [facility] Body height 2023-02-15 18:24:00 157.5 cm [facility] Body weight 2023-02-15 18:24:00 72.576 kg [facility] BMI 2023-02-15 18:24:00 29.26 kg/m2 [facility] Oxygen saturation in Arterial blood by Pulse oximetry 2023-02-15 18:24:00 97 /min [facility] Systolic blood pressure 2022-11-14 18:28:00 123 mm[Hg] [facility] Diastolic blood pressure 2022-11-14 18:28:00 61 mm[Hg] [facility] Heart rate 2022-11-14 18:28:00 96 /min Un[facility] Body temperature 2022-11-14 18:28:[address] [facility] Respiratory rate 2022-11-14 18:28:00 18 /min [facility] Body height 2022-11-14 18:28:00 157.5 cm [facility] 2022-11-14 18:28:00 74.662 kg [facility] BMI 2022-11-14 18:28:00 30.11 kg/m2 [facility] Oxygen saturation in Arterial blood by Pulse oximetry 2022-11-14 18:28:00 97 /min [facility] Height 2022-10-19 00:00:00 62 [in_i] [facility] BMI (Body Mass Index) 2022-10-19 00:00:00 30.2 kg/m2 [facility] Body Weight 2022-10-19 00:00:00 165 [lb_av] [facility] Height 2022-09-28 00:00:00 62 [in_i] [facility] BMI (Body Mass Index) 2022-09-28 00:00:00 30.2 kg/m2 [facility] Body Weight 2022-09-28 00:00:00 165 [lb_av] [facility] Height 2022-09-07 00:00:00 62 [in_i] [facility] BMI (Body Mass Index) 2022-09-07 00:00:00 30.2 kg/m2 [facility] Body Weight 2022-09-07 00:00:00 165 [lb_av] [facility] Systolic blood pressure 2022-08-15 18:33:00 107 mm[Hg] [facility] Diastolic blood pressure 2022-08-15 18:33:00 68 mm[Hg] [facility] Heart rate 2022-08-15 18:33:00 88 /min Un[facility] Body temperature 2022-08-15 18:33:[address] [facility] Respiratory rate 2022-08-15 18:33:00 16 /min [facility] Body height 2022-08-15 18:33:00 154.9 cm [facility] Body weight 2022-08-15 18:33:00 74.208 kg [facility] BMI 2022-08-15 18:33:00 30.91 kg/m2 [facility] Oxygen saturation in Arterial blood by Pulse oximetry 2022-08-15 18:33:00 98 /min ra [facility] Height 2022-08-03 00:00:00 62 [in_i] [facility] BMI (Body Mass Index) 2022-08-03 00:00:00 30.2 kg/m2 [facility] Body Weight 2022-08-03 00:00:00 165 [lb_av] [facility] Systolic blood pressure 2022-05-12 18:19:00 111 mm[Hg] [facility] Diastolic blood pressure 2022-05-12 18:19:00 68 mm[Hg] [facility] Heart rate 2022-05-12 18:19:00 90 /min [facility] Body temperature 2022-05-12 18:19:[address] [facility] Respiratory rate 2022-05-12 18:19:00 16 /min [facility] Body height 2022-05-12 18:19:00 157.5 cm [facility] Body weight 2022-05-12 18:19:00 73.256 kg [facility] BMI 2022-05-12 18:19:00 29.54 kg/m2 [facility] Oxygen saturation in Arterial blood by Pulse oximetry 2022-05-12 18:19:00 96 /min [facility] Systolic blood pressure 2022-03-21 20:00:00 128 mm[Hg] [facility] Diastolic blood pressure 2022-03-21 20:00:00 61 mm[Hg] [facility] Heart rate 2022-03-21 20:00:00 97 /min [facility] Respiratory rate 2022-03-21 20:00:00 16 /min [facility] Body height 2022-03-21 20:00:00 157.5 cm [facility] Body weight 2022-03-21 20:00:00 72.576 kg [facility] BMI 2022-03-21 20:00:00 29.26 kg/m2 [facility] Oxygen saturation in Arterial blood by Pulse oximetry 2022-03-21 20:00:00 97 /min [place] [facility] Procedures Procedure Date / Time Performed Performing Clinician Source POCT HEMOGLOBIN A1C TEST 2023-08-21 20:36:[address] [facility] XR CHEST 2 VW 2023-07-16 16:32:38 Jesusita Owen [facility] ASSIGNMENT OF BENEFITS 2023-07-16 16:13:38 Docto r Unassigned, [place] [facility] RAPID INFLUENZA A/B 2023-07-16 15:55:[address] [facility] COVID-19 (ID NOW RAPID TESTING) 2023-07-16 15:55:[address] [facility] CONSENT/REFUSAL FOR DIAGNOSIS AND TREATMENT 2023-07-16 15:45:08 Doctor Unassigned, [place] [facility] CONSENT/REFUSAL FOR DIAGNOSIS AND TREATMENT 2023-05-18 18:42:37 Doctor Unassigned, [place] [facility] POCT HEMOGLOBIN A1C TEST 2023-05-18 00:00:[address] [facility] POCT HEMOGLOBIN A1C TEST 2023-02-15 18:43:[address] [facility] POCT HEMOGLOBIN A1C TEST 2022-11-14 18:31:[address] [facility] XR, shoulder, 2 or more view 2022-10-19 00:00:00 [facility] XR, shoulder, 2 or more view 2022-09-28 00:00:00 [facility] XR, shoulder, 2 or more view 2022-09-07 00:00:00 [facility] POCT HEMOGLOBIN A1C TEST 2022-08-15 19:14:[address] [facility] XR, shoulder, 2 or more view 2022-08-03 00:00:[address] [facility] [address], shoulder, w/o contrast 2022-08-03 00:00:00 [facility] XR, humerus, 2 or more view 2022-07-22 00:00:00 [facility] XR, shoulder, 2 or more view 2022-05-20 00:00:00 [facility] POCT HEMOGLOBIN A1C TEST 2022-05-12 19:09:[address] [facility] DME/SUPPLY JUSTIFICATION 2022-04-05 05:01:00 Doc tor Unassigned, [place] [facility] XR, humerus, 2 or more view 2022-04-01 00:00:00 [facility] XR, shoulder, 2 or more view 2022-02-21 00:00:00 [facility] XR, shoulder, 2 or more view 2022-01-17 00:00:00 [facility] XR, shoulder, 2 or more view 2022-01-03 00:00:00 [facility] Plan of Care Planned Activity Planned Date Details Comments Source Instructions [facility] Encounters Start Date/Time End Date/Time Encounter Type Admission Type Attending [facility] Facility Care Department Encounter ID Source 2021-05-07 21:24:44 Emergency [facility] [id number] [facility] 2023-08-25 00:00:00 2023-08-25 00:00:00 Refill Jaswinder Ha [facility] 1.2.840.114 350.1.13.10 4.2.7.2.686 [id number] [facility] 2023-08-21 13:00:00 2023-08-21 13:32:03 Outpatient R JASWINDER HA [facility] [id number] [facility] 2023-08-21 13:00:00 2023-08-21 13:32:03 Office Visit Jaswinder Ha [facility] 1.2840.114 350.1.13.10 4.2.7.2.686 [id number] [facility] 2023-07-16 09:53:00 2023-07-16 12:04:00 Emergency X BRAYDEN JESUSITA [facility] [id number] [facility] 2023-07-16 09:53:00 2023-07-16 12:04:00 Emergency Brayden Jesusita Belcher [facility] 1.2840.114 350.1.13.10 4.2.7.2.686 [id number] [facility] 2023-06-09 00:00:00 2023-06-09 00:00:00 Telephone Jaswinder Ha [facility] 1.2840.114 350.1.13.10 4.2.7.2.686 [id number] [facility] 2023-05-18 14:00:00 2023-05-18 14:00:00 Office Visit Jaswinder Ha [facility] 1.2840.114 350.1.13.10 4.2.7.2.686 [id number] [facility] 2023-05-18 14:00:00 2023-05-18 13:57:50 Outpatient R JASWINDER HA [facility] [id number] [facility] 2023-05-18 00:00:00 2023-05-18 00:00:00 Orders Only Doctor Unassigned, [place] [facility] 1.2840.114 350.1.13.10 4.2.7.2.686 [id number] [facility] 2023-03-29 00:00:00 2023-03-29 00:00:00 Telephone Jaswinder Ha [facility] 1.2840.114 350.1.13.10 4.2.7.2.686 [id number] [facility] 2023-02-15 14:00:00 2023-02-15 15:52:38 Outpatient R JASWINDER HA [facility] [id number] [facility] 2023-02-15 14:00:00 2023-02-15 15:52:38 Office Visit Jaswinder Ha [facility] 1.2.840.114 350.1.13.10 4.2.7.2.686 [id number] [facility] 2022-11-28 00:00:00 2022-11-28 00:00:00 Telephone Curtis Pandey [facility] 1.2.840.114 350.1.13.10 4.2.7.2.686 [id number] [facility] 2022-11-14 13:00:00 2022-11-14 14:11:50 Outpatient R JASWINDER HA [facility] [id number] [facility] 2022-11-14 13:00:00 2022-11-14 14:11:50 Office Visit Jaswinder Ha [facility] 1.2.840.114 350.1.13.10 4.2.7.2.686 [id number] [facility] 2022-10-19 00:00:00 2022-10-19 00:00:00 Maverick Pringle MD: [address] [place] [address] , Ph. [phone] [place] [facility] [place] [facility] [id number] [facility] 2022-09-30 00:00:00 2022-09-30 00:00:00 [facility] [id number] [facility] 2022-09-30 00:00:00 2022-09-30 00:00:00 Outpatient FOG_Kai Scott AOSM AOSM [id number] [facility] 2022-09-30 00:00:00 2022-09-30 00:00:00 Outpatient FOG_Kai Scott AOSM AOSM [id number] [facility] 2022-09-30 00:00:00 2022-09-30 00:00:00 Outpatient FOG_Kai Scott AOSM AOSM [id number] [facility] 2022-09-30 00:00:00 2022-09-30 00:00:00 Outpatient FOG_Kai Scott AOSM AOSM [id number] [facility] 2022-09-30 00:00:00 2022-09-30 00:00:00 Outpatient FOG_Kai Scott AOSM AOSM [id number] [facility] 2022-09-30 00:00:00 2022-09-30 00:00:00 Outpatient FOG_Kai Scott AOSM AOSM [id number] [facility] 2022-09-30 00:00:00 2022-09-30 00:00:00 Outpatient FOG_Kai Scott AOSM AOSM [id number] [facility] 2022-09-30 00:00:00 2022-09-30 00:00:00 Outpatient FOG_Kai Scott AOSM AOSM [id number] [facility] 2022-09-28 00:00:00 2022-09-28 00:00:00 Maverick Pringle MD: [address] [place] [address] , Ph. [phone] [facility] [place] - [facility] [place] [facility] [id number] [facility] 2022-09-12 00:00:00 2022-09-12 00:00:00 Outpatient FOG_Kai Scott AOSM AOSM [id number] [facility] 2022-09-12 00:00:00 2022-09-12 00:00:00 Outpatient FOG_Kai Scott AOSM AOSM [id number] [facility] 2022-09-09 00:00:00 2022-09-09 00:00:00 Outpatient FOG_Kai Scott AOSM AOSM [id number] [facility] 2022-09-07 00:00:00 2022-09-07 00:00:00 Maverick Pringle MD: [address] [place] [address] , Ph. [phone] [facility] [place] [facility] [place] [facility] [id number] [facility] 2022-09-06 00:00:00 2022-09-06 00:00:00 Outpatient FOG_Viet Whipple AOSM AOSM [id number] [facility] 2022-09-06 00:00:00 2022-09-06 00:00:00 Outpatient FOG_Viet Whipple AOSM AOSM [id number] [facility] 2022-08-25 00:00:00 2022-08-25 00:00:00 Outpatient FOG_Viet Whipple AOSM AOSM [id number] [facility] 2022-08-25 00:00:00 2022-08-25 00:00:00 Outpatient FOG_Viet Whipple AOSM AOSM [id number] [facility] 2022-08-22 08:25:00 2022-08-23 14:20:00 Inpatient Maverick Vasques [facility] [id number] [facility] 2022-08-22 00:00:00 2022-08-22 00:00:00 Maverick Pringle MD: [address] [place] [address] , Ph. [phone] [facility] [place] [facility] [place] [facility] [id number] [facility] 2022-08-15 13:00:00 2022-08-15 13:30:00 Office Visit Jaswinder Ha [facility] 1.2.840.114 350.1.13.10 4.2.7.2.686 [id number] [facility] 2022-08-15 13:00:00 2022-08-15 13:00:00 Outpatient JASWINDER HATCH [facility] [id number] [facility] 2022-08-13 00:00:00 2022-08-13 00:00:00 Outpatient FOGRafiq Whipple AOSM AOSM [id number] [facility] 2022-08-13 00:00:00 2022-08-13 00:00:00 Outpatient FOGRafiq Whipple AOSM AOSM [id number] [facility] 2022-08-13 00:00:00 2022-08-13 00:00:00 Outpatient Shen Whipple AOSM AOSM [id number] [facility] 2022-08-13 00:00:00 2022-08-13 00:00:00 Outpatient FOGRafiq Whipple AOSM AOSM [id number] [facility] 2022-08-10 16:02:00 2022-08-10 16:02:00 Outpatient Maverick Pringle LABO [id number] [facility] 2022-08-10 10:32:00 2022-08-10 10:32:00 Outpatient Maverick Vasques [facility] [id number] [facility] 2022-08-08 00:00:00 2022-08-08 00:00:00 Outpatient Shen Whipple AO AO [id number] [facility] 2022-08-03 00:00:00 2022-08-03 00:00:00 Telephone Jaswinder Ha [facility] 1.2.840.114 350.1.13.10 4.2.7.2.686 [id number] [facility] 2022-08-03 00:00:00 2022-08-03 00:00:00 Maverick Pringle MD: [address] [place] [address] , Ph. [phone] [place] [facility] [place] [facility] [id number] [facility] 2022-07-28 00:00:00 2022-07-28 00:00:00 Outpatient Shen Whipple AO AO [id number] [facility] 2022-07-22 00:00:00 2022-07-22 00:00:00 Tyron Dotson MD: [address] [place] [address] , Ph. 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 [phone] [facility] [place] [facility] [id number] [facility] 2022-05-12 14:00:00 2022-05-12 14:57:25 Outpatient JASWINDER HATCH [facility] [id number] [facility] 2022-05-12 14:00:00 2022-05-12 14:57:25 Office Visit Jaswinder Ha [facility] 1..840.114 350.1.13.10 4.2.7.2.686 [id number] [facility] 2022-04-08 00:00:00 2022-04-08 00:00:00 Outpatient Shen Whipple AO AO [id number] [facility] 2022-04-05 00:00:00 2022-04-05 00:00:00 Orders Only Doctor Unassigned, [place] [facility] 1..840.114 350.1.13.10 4.2.7.2.686 [id number] [facility] 2022-04-01 00:00:00 2022-04-01 00:00:00 Outpatient FOG[facility]Mauri[facility]gron_ [facility] [id number] [facility] 2022-04-01 00:00:00 2022-04-01 00:00:00 Tyron Dotson MD: [address] [place] [address] , Ph. [phone] [place] - [facility] [place] [facility] [id number] [facility] 2022-03-21 15:30:00 2022-03-21 15:52:29 Office Visit Katherin [facility] 1..840.114 350.1.13.10 4.2.7.2.686 [id number] [facility] 2022-03-21 15:30:00 2022-03-21 15:52:29 Outpatient R KATHERIN [facility] [id number] [facility] 2022-03-21 15:30:00 2022-03-21 15:30:00 Outpatient Margie PANDEY [facility] [id number] [facility] 2022-03-21 00:00:00 2022-03-21 00:00:00 Telephone Jaswinder Ha [facility] 1..840.114 350.1.13.10 4.2.7.2.686 [id number] [facility] 2022-03-08 00:00:00 2022-03-08 00:00:00 Telephone Jaswinder Ha [facility] 1..840.114 350.1.13.10 4.2.7.2.686 [id number] [facility] 2022-02-21 13:00:00 2022-02-21 13:00:00 Outpatient R KATHERIN [facility] [id number] [facility] 2022-02-21 13:00:00 2022-02-21 13:00:00 Outpatient R CURTIS PANDEY [facility] [id number] [facility] 2022-02-21 00:00:00 2022-02-21 00:00:00 Outpatient ESTHELA_Mauri_Davian negron_ [facility] [id number] [facility] 2022-02-21 00:00:00 2022-02-21 00:00:00 Outpatient Tyron Dotson [facility] [id number] 2022-02-21 00:00:00 2022-02-21 00:00:00 Tyron Dotson MD: [address] [place] [address] , Ph. [phone] [facility] [place] - [facility] [place] [facility] [id number] [facility] 2022-02-09 11:00:00 2022-02-09 12:22:57 Outpatient R JASWINDER HA [facility] [id number] [facility] 2022-02-09 11:00:00 2022-02-09 12:22:57 Office Visit Jaswinder Ha [facility] 1.114 350.1.13.10 4.2.7.2.686 [id number] [facility] 2022-02-09 00:00:00 2022-02-09 00:00:00 Orders Only Doctor Unassigned, [place] [facility] 1.114 350.1.13.10 4.2.7.2.686 [id number] [facility] 2022-01-26 00:00:00 2022-01-26 00:00:00 Telephone Curtis Pandey [facility] .114 350.1.13.10 4.2.7.2.686 [id number] [facility] 2022-01-25 00:00:00 2022-01-25 00:00:00 Curtis Patterson [facility] 1.2.840.114 350.1.13.10 4.2.7.2.686 [id number] [facility] 2022-01-24 10:30:00 2022-01-24 10:30:00 Outpatient JASWINDER HATCH [facility] [id number] [facility] 2022-01-17 00:00:00 2022-01-17 00:00:00 Outpatient Shen Whipple AO AO [id number] [facility] 2022-01-17 00:00:00 2022-01-17 00:00:00 Outpatient Tyron Dotson [facility] [id number] 2022-01-17 00:00:00 2022-01-17 00:00:00 Tyron Dotson MD: [address] [place] [address] , Ph. [phone] [facility] [place] [facility] [id number] [facility] 2022-01-11 00:00:00 2022-01-11 00:00:00 Jaswinder Shultz [facility] 1.2.840.114 350.1.13.10 4.2.7.2.686 [id number] [facility] 2022-01-08 02:10:00 2022-01-08 02:10:00 Outpatient Shen Whipple AOSM AO [id number] [facility] 2022-01-03 11:53:00 2022-01-03 11:53:00 Outpatient Shen Whipple AOSM AOSM [id number] [facility] 2022-01-03 00:00:00 2022-01-03 00:00:00 Tyron Dotson MD: [id number] [place] [address] , Ph. [phone] [facility] [place] - [facility] [place] [facility] [id number] [facility] 2022-01-03 00:00:00 2022-01-03 00:00:00 Outpatient Tyron Dotson AOSM AOSM [id number] 2021-12-27 09:38:00 2021-12-27 11:09:00 Emergency Tyron Frances HCATO HCATO [id number] [facility] 2021-12-27 09:38:00 2021-12-27 11:09:00 Emergency Tyron Frances HCATO ANDI [id number] [facility] 2021-12-27 01:37:00 2021-12-27 01:37:00 Outpatient Shen Whipple AOSM AO [id number] [facility] 2021-12-27 01:37:00 2021-12-27 01:37:00 Outpatient Shen Whipple AOSM AOSM [id number] [facility] 2021-12-13 00:00:00 2021-12-13 00:00:00 Jaswinder Shultz [facility] [id number] [id number] [id number] [facility] 2021-09-20 13:00:00 2021-09-20 14:30:55 Outpatient JASWINDER HATCH [facility] [id number] [facility] 2021-09-20 13:00:00 2021-09-20 14:30:55 Office Visit Jaswinder Ha [facility] 1.84.114 [id number] [id number] [id number] [facility] 2021-09-20 13:00:00 2021-09-20 13:00:00 Outpatient R JASWINDER HA [facility] [id number] [facility] 2021-08-25 00:00:00 2021-08-25 00:00:00 [facility] 1..114 [id number] [id number] [id number] [facility] 2021-08-17 14:30:00 2021-08-17 15:03:[address] [facility] [place] 1.114 350.1.13.10 4.2.7.2.686 [id number] [facility] 2021-08-17 14:30:00 2021-08-17 15:03:07 Outpatient Margie PANDEY [facility] [id number] [facility] 2021-08-17 14:30:00 2021-08-17 14:30:00 Outpatient Margie PANDEY [facility] [id number] [facility] 2021-08-17 00:00:00 2021-08-17 00:00:00 Orders Only Doctor Unassigned, [place] [facility] 1..114 350.1.13.10 4.2.7.2.686 [id number] [facility] 2021-06-21 13:30:00 2021-06-21 16:34:12 Office Visit Jaswinder Ha [facility] 1.2.114 350.1.13.10 4.2.7.2.686 [id number] [facility] 2021-06-21 13:30:00 2021-06-21 16:34:12 Outpatient JOSUE HATCHEN [facility] [id number] [facility] 2021-06-21 13:30:00 2021-06-21 13:30:00 Outpatient Margie HA JASWINDER [facility] [id number] [facility] 2021-06-07 00:00:00 2021-06-07 00:00:00 Telephone Josue Hakoko Amaro [facility] ..840.114 350.1.13.10 4.2.7.2.686 [id number] [facility] 2021-05-31 14:56:12 2021-05-31 23:59:00 Outpatient SAMEER RAMIREZ HOWARD [facility] [id number] [facility] 2021-05-31 14:56:12 2021-05-31 23:59:00 Hospital Encounter Sameer Adler [facility] ..840.114 350.1.13.10 4.2.7.2.686 [id number] [facility] 2021-05-27 10:15:00 2021-05-27 10:15:00 Outpatient JASWINDER HATCH [facility] [id number] [facility] 2021-05-27 09:51:49 2021-05-27 10:06:49 Wireline Field Operator Visit Pob, Adc Lab Robert Martinezpérez Jaswinder Amaro [facility] ..840.114 350.1.13.10 4.2.7.2.686 [id number] [facility] 2021-05-27 00:00:00 2021-05-27 00:00:00 Orders Only Doctor Unassigned, [place] [facility] 1..114 350.1.13.10 4.2.7.2.686 [id number] [facility] 2021-05-25 13:40:00 2021-05-25 14:19:53 Outpatient SAMEER RAMIREZ HOWARD [facility] [id number] [facility] 2021-05-25 13:12:58 2021-05-25 14:19:53 Office Visit [facility]er Adler [facility] 1.114 350.1.13.10 4.2.7.2.686 [id number] [facility] 2021-05-11 13:00:00 2021-05-11 13:46:33 [facility] [id number] [facility] 2021-05-11 12:48:18 2021-05-11 13:46:33 Office Visit [facility] 1.114 350.1.13.10 4.2.7.2.686 [id number] [facility] 2021-05-11 13:00:00 2021-05-11 13:00:00 Outpatient DAVIE CAREYLSHAN [facility] [id number] [facility] 2021-04-29 00:00:00 2021-04-29 00:00:00 Orders Only Doctor Unassigned, [place] [facility] 1.114 350.1.13.10 4.2.7.2.686 [id number] [facility] 2021-04-19 00:00:00 2021-04-19 00:00:00 Jaswinder Live [facility] 1..114 350.1.13.10 4.2.7.2.686 [id number] [facility] 2021-03-22 12:41:25 2021-03-22 14:21:16 Office Visit Ha Jaswinder Prem [facility] 1.2.840.114 350.1.13.10 4.2.7.2.686 [id number] [facility] 2021-03-22 13:00:00 2021-03-22 13:00:00 Outpatient Margie HA JASWINDER [facility] [id number] [facility] 2021-03-08 00:00:00 2021-03-08 00:00:00 Davie Pattersonlshan [facility] 1.2.840.114 350.1.13.10 4.2.7.2.686 [id number] [facility] 2021-02-11 15:30:00 2021-02-11 16:02:49 Outpatient RUT GARCIA [facility] [id number] [facility] 2020-12-16 13:00:00 2020-12-16 13:00:00 Outpatient JASWINDER HATCH [facility] [id number] [facility] 2020-11-16 09:00:00 2020-11-16 09:00:00 Outpatient R [facility] [id number] [facility] 2020-11-06 15:46:17 2020-11-06 23:59:00 Outpatient DAVIE CAREYLSHAN [facility] [id number] [facility] 2020-11-06 00:00:00 2020-11-06 00:00:00 Outpatient CURTIS CAREY [facility] [id number] [facility] 2020-10-25 00:00:00 2020-10-25 00:00:00 Outpatient DAVIE CAREYLSHAN [facility] [id number] [facility] 2020-10-15 13:00:00 2020-10-15 13:00:00 Outpatient R CURTIS PANDEY [facility] [id number] [facility] 2020-09-26 13:00:00 2020-09-26 13:00:00 Outpatient R [facility] [id number] [facility] 2020-09-25 16:00:00 2020-09-25 16:00:00 Outpatient R [facility] [id number] [facility] 2020-09-14 13:30:00 2020-09-14 13:30:00 Outpatient R JASWINDER HA [facility] [id number] [facility] 2020-07-31 13:00:00 2020-07-31 13:00:00 Outpatient R [facility] [id number] [facility] 2020-07-22 14:12:24 2020-07-22 15:24:24 Office Visit K[facility]in [facility] 1.840.114 350.1.13.10 4.2.7.2.686 [id number] 2020-07-22 14:30:00 2020-07-22 14:30:00 Outpatient [facility]DAVIE [facility] [id number] [facility] 2020-07-22 00:00:00 2020-07-22 00:00:00 Orders Only Doctor Unassigned, [place] [facility] 1.840.114 350.1.13.10 4.2.7.2.686 [id number] 2020-07-14 14:00:00 2020-07-14 14:00:00 Outpatient BHUMI MOFFETT [facility] [id number] [facility] 2020-06-15 14:30:00 2020-06-15 14:30:00 Outpatient R JASWINDER HA [facility] [id number] [facility] 2020-05-27 18:00:00 2020-05-27 18:00:00 Outpatient R GONZALEZ MCMANUS [facility] [id number] [facility] 2020-04-27 09:00:00 2020-04-27 09:00:00 Outpatient R [facility] [id number] [facility] 2020-04-03 15:00:00 2020-04-03 15:00:00 Outpatient R REBOLLARMIRELAAV [facility] [id number] [facility] 2020-03-30 14:30:00 2020-03-30 14:30:00 [id number] [facility] 2020-03-11 13:00:00 2020-03-11 13:00:00 Outpatient JASWINDER HATCH [facility] [id number] [facility] 2020-01-08 00:00:00 2020-01-08 00:00:00 Outpatient JAHAIRA CAREYHAN [facility] [id number] [facility] 2019-12-23 13:00:00 2019-12-23 13:00:00 Outpatient [facility] [id number] [facility] 2019-12-11 13:30:00 2019-12-11 13:30:00 Outpatient JASWINDER HATCH [facility] [id number] [facility] 2019-09-09 14:00:00 2019-09-09 14:00:00 Outpatient JASWINDER HATCH [facility] [id number] [facility] Results Test Description Test Time Test Comments Results Result Co mments Source [facility] Hemoglobin A1C [id number] 20:36:00* Test Item Value Reference Range Interpretation Comme [facility] POCT HBA1C (test code = 4548-4) 7.6 % 4-6 A Lab Interpretation (test cod e = 39839-5) Abnormal [facility] Hemoglobin A1C [id number] 20:36:00* Test Item Value Reference Range Interpretation Comme [facility] POCT HBA1C (test code = 4548-4) 7.6 % 4-6 A Lab Interpretation (test cod e = 83499-6) [facility] [id number] 17:27:15PROCEDURE:XR CHEST 2 VW ORDERING PHYSICIAN: JESUSITA OWEN HISTORY: ?Cough TECHNIQUE: PA and Lateral views of the chest were performed. TECHNICAL QUALITY: Adequate COMPARISON: ?None available FINDINGS: Support Devices: ?None.Cardiac Silhouette/Mediastinum/Tasneem: ?The cardiac, mediastinal, and hilarcontours are within normal limitsLungs/Pleural Spaces: ?There is no focal consolidation. The pleural spacesare clear.Chest Wall/Diaphragm/Upper Abdomen: ?The thoracic musculoskeletalstructures and the upper abdomen are within normal limits. Status postreverse right shoulder arthroplasty.[facility] HEMOGLOBIN A1C [id number] 19:25:00* Test Item Value Reference Range Interpretation Comme nts POCT HBA1C (test code = 4548-4) 4.4 % 4-6 [facility] HEMOGLOBIN A1C [id number] 19:25:00* Test Item Value Reference Range Interpretation Comme nts POCT HBA1C (test code = 4548-4) 4.4 % 4-6 [facility] HEMOGLOBIN A1C [id number] 18:43:00* Test Item Value Reference Range Interpretation Comme nts POCT HBA1C (test code = 4548-4) 6.8 % 4-6 A Lab Interpretation (test cod e = 48575-9) Abnormal [facility] HEMOGLOBIN A1C [id number] 18:43:00* Test Item Value Reference Range Interpretation Comme nts POCT HBA1C (test code = 4548-4) 6.8 % 4-6 A Lab Interpretation (test cod e = 56417-7) Abnormal [facility] HEMOGLOBIN A1C [id number] 18:31:00* Test Item Value Reference Range Interpretation Comme nts POCT HBA1C (test code = 4548-4) 6.6 % 4-6 A Lab Interpretation (test cod e = 98119-0) Abnormal [facility] HEMOGLOBIN A1C [id number] 18:31:00* Test Item Value Reference Range Interpretation Comme nts POCT HBA1C (test code = 4548-4) 6.6 % 4-6 A Lab Interpretation (test cod e = 17210-8) [facility]normal [facility] 11:14:00* Test Item Value Reference Range Interpretation Comme nts GLUBED (test code = GLUBED) 233 mg/dL 60-125 H [id number] 11:00:00* Test Item Value Reference Range Interpretation Comme nts glubed (test code = glubed) 233 mg/dL 60-125 H performing lab: (test code = performing lab:) [facility] METABOLIC [id number] 06:30:00* Test Item Value Reference Range Interpretation Comme nts SODIUM (test code = NA) 141 mmol/L 136-145 N POTASSIUM (test code = K) 4.1 mmol/L 3.5-5.1 N CHLORIDE (test code = CL) 105.0 mmol/L 98-107 N CARBON DIOXIDE (test code = CO2) 24.9 mmol/L 21-32 N GLUCOSE (test code = GLU) 145 mg/dL 70-110 H BLOOD UREA NITROGEN (test code = BUN) 21 mg/dL 7-18 H GLOMERULAR FILTRATION RATE (test code = GFR) 94.6 >60 The Glomerular Filtration Rate is a calculated parameterbased on serum Creatinine, patient age and sex. GFR valuesless than 60 mL/min/1.73 square meters are indicative ofChronic Kidney Disease. Values less than 15 mL/min/1.73square meters indicate Kidney failure. The calculation forGFR is based on the CKD-EPI (202) calculation. This formulais race indifferent and is the recommended formula for GFRby the National Kidney Foundation for Adults.The GFR will not calculate if the sex is unknown or if thepatient's age is <18 years. CREATININE (test code = CREAT) 0.67 mg/dL 0.55-1.30 N CALCIUM (test code = CA) 8.4 mg/dL 8.2-10.1 N CBC W/AUTO [id number] 06:06:00* Test Item Value Reference Range Interpretation Comme nts WHITE BLOOD CELL (test code = WBC) 11.7 K/mm3 5.8-11.0 H RED BLOOD CELL (test code = RBC) 3.32 M/mm3 4.2-5.4 L HEMOGLOBIN (test code = HGB) 10.9 g/dL 12-16 L HEMATOCRIT (test code = HCT) 31.8 % 37-47 L MEAN CELL VOLUME (test code = MCV) 96 fL 80-98 N MEAN CELL HGB (test code = MCH) 32.8 pg 27-34 N MEAN CELL HGB CONCENTRATION (test code = MCHC) 34.3 g/dL 30.8-34.1 H RED CELL DISTRIBUTION WIDTH (test code = RDW) 11.7 % 11-16 N PLT (test code = PLT) 267 K/mm3 130-400 N MEAN PLATELET VOLUME (test c ode = MPV) 10.2 fL 8.9-12.1 N NEUTROPHIL % (test code = NT%) 74.5 % 45-70 H LYMPHOCYTE % (test code = LY%) 15.5 % 20-40 L MONOCYTE % (test code = MO%) 9.2 % 3-10 N EOSINOPHIL % (test code = EO%) 0.3 % 1-5 L BASOPHIL % (test code = BA%) 0.2 % 0.0-1.1 N NEUTROPHIL # (test code = NT#) 8.73 K/mm3 2.00-7.50 H LYMPHOCYTE # (test code = LY#) 1.81 K/mm3 1.50-4.00 N MONOCYTE # (test code = MO#) 1.08 K/mm3 0.2-0.8 H EOSINOPHIL # (test code = EO#) 0.03 K/mm3 0.04-0.4 L BASOPHIL # (test code = BA#) 0.02 K/mm3 0.02-0.10 N MANUAL DIFF REQUIRED (test c ode = MDIFF) NO MANUAL DIFF NUCLEATED RED BLOOD CELL (te st code = NRBC) 0 % 0-0 N SPECIMEN COMMENT: POD #[id number] 05:30:00* Test Item Value Reference Range Interpretation Comme nts GLUBED (test code = GLUBED) 147 mg/dL 60-125 H [id number] 05:17:00* Test Item Value Reference Range Interpretation Comme nts glubed (test code = glubed) 147 mg/dL 60-125 H performing lab: (test code = performing lab:) [facility] [id number] 19:52:00* Test Item Value Reference Range Interpretation Comme nts GLUBED (test code = GLUBED) 292 mg/dL 60-125 H [id number] 19:39:00* Test Item Value Reference Range Interpretation Comme nts glubed (test code = glubed) 292 mg/dL 60-125 H performing lab: (test code = performing lab:) [facility] 18:08:00* Test Item Value Reference Range Interpretation Comme nts GLUBED (test code = GLUBED) 206 mg/dL 60-125 H [id number] 17:56:00* Test Item Value Reference Range Interpretation Comme nts glubed (test code = glubed) 206 mg/dL 60-125 H performing lab: (test code = performing lab:) [facility]- XR SHOULDER 1 V [id number] 16:00:00 [facility] 1955 Sex: F Patient Name: TALIB MARKS Unit No: [id number] EXAMS: CPT CODE: [id number] XR SHOULDER 1 [place] [address]10 AP portable right shoulder COMMENT: The patient is status post reverse prosthesis placement which is articulating normally. at 1600 Reported and signed by: Yash Delgado MD CC: Maverick Pringle MD; Hany Cardona DO Technologist: Carmen Hilton(R) Transcribed D/ (1600) Debra.[facility] NAME: TALIB MARKS [address] [facility] PHYS: Hany Javed DO : 1955 AGE: 67 SEX: F [place] [address] LOC: Y.O20 A PHONE #: [phone] EXAM DATE: 08/22/2022 STATUS: ADM IN FAX #: [phone] RAD #: D/C DT PAGE 1 SignedReport Patient Name: TALIB MARKS Unit No: [id number] EXAMS: CPT CODE: [id number] XR SHOULDER 1 V RT 91287 (Continued) Orig Print D/T: S: 08/22/2022 (1603) [facility] NAME: TALIB MARKS [address] [facility] PHYS: Hany Javed DO : 1955 AGE: 67 SEX: F [place] [address] LOC: Y.O20 A PHONE #: [phone] EXAM DATE: 08/22/2022 STATUS: ADM IN FAX #: [phone] RAD #: D/C DT PAGE 2 Signed [id number] 09:42:00* Test Item Value Reference Range Interpretation Comme nts GLUBED (test code = GLUBED) 145 mg/dL 60-125 H [id number] 09:30:00* Test Item Value Reference Range Interpretation Comme nts glubed (test code = glubed) 145 mg/dL 60-125 H performing lab: (test code = performing lab:) [facility] 09:30:00* Test Item Value Reference Range Interpretation Comme nts glubed (test code = glubed) 145 mg/dL 60-125 H performing lab: (test code = performing lab:) [facility] 09:30:00* Test Item Value Reference Range Interpretation Comme nts glubed (test code = glubed) 145 mg/dL 60-125 H performing lab: (test code = performing lab:) [facility] [id number] 19:15:00* Test Item Value Reference Range Interpretation Comme nts POCT HBA1C (test code = 4548-4) 7.0 % 4-6 A Lab Interpretation (test cod e = 16280-3) [facility]normal [facility] [id number] 19:15:00* Test Item Value Reference Range Interpretation Comme nts POCT HBA1C (test code = 4548-4) 7.0 % 4-6 A Lab Interpretation (test cod e = 81033-1) Abnormal [facility] CenterPROTHROMBIN [id number] 10:45:00* Test Item Value Reference Range Interpretation Comme nts PROTHROMBIN TIME PATIENT (test code = PTP) 10.1 secs 9.7-12.5 N Please note new normal range. INTERNATIONAL NORMAL RATIO (test code = INR) 0.91 <2.0 RECOMMENDED THER APEUTIC RANGE FOR ORAL ANTICOAGULANTTREATMENT: CONDITION INRProphylaxis of venous thrombosis in 2.0 - 3.0 high-risk medical or surgical patientsTreatment of venous thrombosis 2.0 - 3.0Prevention of embolism 2.0 - 3.0Prevention of recurrent embolism, or 3.0 - 4.5 patients with mechanical prosthetic intravascular valves IS PATIENT ON ANTICOAGULANTS ? YLIST ANTICOAGULANT/ANTI PLT MEDICATION : AspirinHas Lab been notified if Patient is on Heparin Drip? NOSPECIMEN COMMENT: 1THROMBOPLASTIN TIME [id number] 10:45:00* Test Item Value Reference Range Interpretation Comme nts PTT ACTIVATED (test code = APTT) 21.1 secs 26.6-34.6 L Please note new normal range. IS PATIENT ON ANTICOAGULANTS ? YLIST ANTICOAGULANT/ANTI PLT MEDICATION : AspirinHas Lab been notified if Patient is on Heparin Drip? NOSPECIMEN COMMENT: 1Prothrombin time (PT)2022-08-15 10:15:00* Test Item Value Reference Range Interpretation Comme nts prothrombin time patient (te st code = prothrombin time patient) 10.1 secs 9.7-12.5 international normal ratio ( test code = international normal ratio) 0.91 <2.0 performing lab: (test code = performing lab:) [facility] [id number] 10:15:00 * Test Item Value Reference Range Interpretation Comme nts PTT activated (test code = P TT activated) 21.1 secs 26.6-34.6 L performing lab: (test code = performing lab:) [facility] (PT)2022-08-15 10:15:00* Test Item Value Reference Range Interpretation Comme nts prothrombin time patient (te st code = prothrombin time patient) 10.1 secs 9.7-12.5 international normal ratio ( test code = international normal ratio) 0.91 <2.0 performing lab: (test code = performing lab:) [facility] Medicinethromboplastin time [id number] 10:15:00 * Test Item Value Reference Range Interpretation Comme nts PTT activated (test code = P TT activated) 21.1 secs 26.6-34.6 L performing lab: (test code = performing lab:) [facility] (PT)2022-08-15 10:15:00* Test Item Value Reference Range Interpretation Comme nts prothrombin time patient (te st code = prothrombin time patient) 10.1 secs 9.7-12.5 international normal ratio ( test code = international normal ratio) 0.91 <2.0 performing lab: (test code = performing lab:) [facility] [id number] 10:15:00 * Test Item Value Reference Range Interpretation Comme nts PTT activated (test code = P TT activated) 21.1 secs 26.6-34.6 L performing lab: (test code = performing lab:) [facility] Hospital[facility]YCOS[facility]ATED [facility]EMOGLOBIN (HA1C)2022-08-10 20:53:00* Test Item Value Reference Range Interpretation Comme nts GLYCOSYLATED HEMOGLOBIN (HA1C) (test code = GLYHGB) 6.9 % 4.8-5.9 H Any conditi on that shortens erythocyte survival or decreasesmean erythrocyte age (e.g., recovery from acute blood loss,hemolytic anemai) will falsely lower HGBA1c resultsregardless of the method used. HGBA1c results frompatients with HbSS, HbCC and HbSc must be interpreted withcaution given the pathological processes, including anemia,increased red cell turnover, transfusion requirements, thatadversely impact HGBA1c as a marker of long-term glycemiccontrol. Alternative forms of testing such as fructosamineshould be considered for these patients.Any condition that shortens erythocyte survival or decreasesmean erythrocyte age (e.g., recovery from acute blood loss,hemolytic anemia) will falsely lower HGBA1c resultsregardless of the method used. HGBA1c results from patientswith HbSS, HbCC, and HbSc must be interpreted with cautiongiven the pathological processes, including anemia,increased red cell turnover, transfusion requirements, thatadversely impact HGBA1c as a marker of long-term glycemiccontrol. Alternative forms of testing such as fructosamineshould be considered for these patients.DONE AT: [facility] [address] [place] [address] GLYCOSYLATED HEMOGLOBIN (HA1C)2022-08-10 20:52:00* Test Item Value Reference Range Interpretation Comme nts GLYCOSYLATED HEMOGLOBIN (HA1C) (test code = GLYHGB) 6.9 % 4.8-5.9 H Any conditi on that shortens erythocyte survival or decreasesmean erythrocyte age (e.g., recovery from acute blood loss,hemolytic anemia) will falsely lower HGBA1c resultsregardless of the method used. HGBA1c results from patientswith HbSS, HbCC, and HbSc must be interpreted with cautiongiven the pathological processes, including anemia,increased red cell turnover, transfusion requirements, thatadversely impact HGBA1c as a marker of long-term glycemiccontrol. Alternative forms of testing such as fructosamineshould be considered for these patients. COMPREHENSIVE METABOLIC [id number] 15:27:00* Test Item Value Reference Range Interpretation Comme nts SODIUM (test code = NA) 139 mmol/L 136-145 N POTASSIUM (test code = K) 4.3 mmol/L 3.5-5.1 N CHLORIDE (test code = CL) 103.0 mmol/L 98-107 N CARBON DIOXIDE (test code = CO2) 27.2 mmol/L 21-32 N GLUCOSE (test code = GLU) 154 mg/dL 70-110 H BLOOD UREA NITROGEN (test code = BUN) 15 mg/dL 7-18 N GLOMERULAR FILTRATION RATE (test code = GFR) 101.0 >60 The Glomerular Filtration Rate is a calculated parameterbased on serum Creatinine, patient age and sex. GFR valuesless than 60 mL/min/1.73 square meters are indicative ofChronic Kidney Disease. Values less than 15 mL/min/1.73square meters indicate Kidney failure. The calculation forGFR is based on the CKD-EPI (202) calculation. This formulais race indifferent and is the recommended formula for GFRby the National Kidney Foundation for Adults.The GFR will not calculate if the sex is unknown or if thepatient's age is <18 years. CREATININE (test code = CREAT) 0.51 mg/dL 0.55-1.30 L TOTAL PROTEIN (test code = PROT) 6.4 g/dL 6.4-8.2 N ALBUMIN (test code = ALB) 3.5 g/dL 3.4-5.0 N GLOBULIN (test code = GLOB) 2.9 g/dL 2.2-4.2 N ALBUMIN/GLOBULIN RATIO (test code = A/G) 1.2 0.7-2.0 N CALCIUM (test code = CA) 8.8 mg/dL 8.2-10.1 N BILIRUBIN TOTAL (test code = BILT) 0.10 mg/dL 0.2-1.00 L SGOT/AST (test code = AST) 21.0 U/L 15-37 N SGPT/ALT (test code = ALT) 25.0 U/L 12-78 N ALKALINE PHOSPHATASE TOTAL (test code = ALKP) 81 U/L 46-116 N CBC W/AUTO [id number] 14:34:00* Test Item Value Reference Range Interpretation Comme nts WHITE BLOOD CELL (test code = WBC) 4.6 K/mm3 5.8-11.0 L RED BLOOD CELL (test code = RBC) 3.93 M/mm3 4.2-5.4 L HEMOGLOBIN (test code = HGB) 13.0 g/dL 12-16 N HEMATOCRIT (test code = HCT) 37.3 % 37-47 N MEAN CELL VOLUME (test code = MCV) 95 fL 80-98 N MEAN CELL HGB (test code = MCH) 33.1 pg 27-34 N MEAN CELL HGB CONCENTRATION (test code = MCHC) 34.9 g/dL 30.8-34.1 H RED CELL DISTRIBUTION WIDTH (test code = RDW) 11.9 % 11-16 N PLT (test code = PLT) 277 K/mm3 130-400 N MEAN PLATELET VOLUME (test c ode = MPV) 9.9 fL 8.9-12.1 N NEUTROPHIL % (test code = NT%) 50.1 % 45-70 N LYMPHOCYTE % (test code = LY%) 36.4 % 20-40 N MONOCYTE % (test code = MO%) 8.5 % 3-10 N EOSINOPHIL % (test code = EO%) 4.4 % 1-5 N BASOPHIL % (test code = BA%) 0.4 % 0.0-1.1 N NEUTROPHIL # (test code = NT#) 2.30 K/mm3 2.00-7.50 N LYMPHOCYTE # (test code = LY#) 1.67 K/mm3 1.50-4.00 N MONOCYTE # (test code = MO#) 0.39 K/mm3 0.2-0.8 N EOSINOPHIL # (test code = EO#) 0.20 K/mm3 0.04-0.4 N BASOPHIL # (test code = BA#) 0.02 K/mm3 0.02-0.10 N MANUAL DIFF REQUIRED (test c ode = MDIFF) NO MANUAL DIFF NUCLEATED RED BLOOD CELL (te st code = NRBC) 0 % 0-0 N CBC W Auto Differential panel - Ywaor2917-63-60 14:10:00* Test Item Value Reference Range Interpretation Comme nts white blood cell (test code = white blood cell) 4.6 K/mm3 5.8-11.0 L red blood cell (test code = red blood cell) 3.93 M/mm3 4.2-5.4 L hemoglobin (test code = hemoglobin) 13.0 g/dL 12-16 hematocrit (test code = hematocrit) 37.3 % 37-47 mean cell volume (test code = mean cell volume) 95 fL 80-98 mean cell HGB (test code = m ryan cell HGB) 33.1 pg 27-34 mean cell HGB concentration (test code = mean cell HGB concentration) 34.9 g/dL 30.8-34.1 H red cell distribution width (test code = red cell distribution width) 11.9 % 11-16 plt (test code = plt) 277 K/mm3 130-400 mean platelet volume (test c ode = mean platelet volume) 9.9 fL 8.9-12.1 neutrophil % (test code = neutrophil %) 50.1 % 45-70 lymphocyte % (test code = lymphocyte %) 36.4 % 20-40 monocyte % (test code = mono cyte %) 8.5 % 3-10 eosinophil % (test code = eosinophil %) 4.4 % 1-5 basophil % (test code = baso doris %) 0.4 % 0.0-1.1 neutrophil # (test code = neutrophil #) 2.30 K/mm3 2.00-7.50 lymphocyte # (test code = lymphocyte #) 1.67 K/mm3 1.50-4.00 monocyte # (test code = mono cyte #) 0.39 K/mm3 0.2-0.8 eosinophil # (test code = eosinophil #) 0.20 K/mm3 0.04-0.4 basophil # (test code = baso doris #) 0.02 K/mm3 0.02-0.10 manual diff required (test c ode = manual diff required) no manual diff nucleated red blood cell (te st code = nucleated red blood cell) 0 % 0-0 performing lab: (test code = performing lab:) [facility] 2000 panel - Serum or Dvlzub1202-54-03 14:10:00* Test Item Value Reference Range Interpretation Comme nts sodium (test code = sodium) 139 mmol/L 136-145 potassium (test code = potassium) 4.3 mmol/L 3.5-5.1 chloride (test code = chloride) 103.0 mmol/L 98-107 carbon dioxide (test code = carbon dioxide) 27.2 mmol/L 21-32 glucose (test code = glucose) 154 mg/dL 70-110 H blood urea nitrogen (test co de = blood urea nitrogen) 15 mg/dL 7-18 glomerular filtration rate ( test code = glomerular filtration rate) 101.0 >60 creatinine (test code = creatinine) 0.51 mg/dL 0.55-1.30 L total protein (test code = t otal protein) 6.4 g/dL 6.4-8.2 albumin (test code = albumin) 3.5 g/dL 3.4-5.0 globulin (test code = globulin) 2.9 g/dL 2.2-4.2 albumin/globulin ratio (test code = albumin/globulin ratio) 1.2 0.7-2.0 calcium (test code = calcium) 8.8 mg/dL 8.2-10.1 bilirubin total (test code = bilirubin total) 0.10 mg/dL 0.2-1.00 L SGOT/AST (test code = SGOT/AST) 21.0 U/L 15-37 SGPT/ALT (test code = SGPT/ALT) 25.0 U/L 12-78 alkaline phosphatase total ( test code = alkaline phosphatase total) 81 U/L 46-116 performing lab: (test code = performing lab:) [facility] 14:10:00* Test Item Value Reference Range Interpretation Comme nts Hemoglobin A1c/Hemoglobin.to maria dolores in Blood (test code = 4548-4) 6.9 % 4.8-5.9 H performing lab: (test code = performing lab:) [facility] resistant Staphylococcus aureus [Presence] in Specimen by Organism specific zdaqlyz7680-87-65 14:10:00* Test Item Value Reference Range Interpretation Comme nts MRSA surveillance screen (te st code = MRSA surveillance screen) see below performing lab: (test code = performing lab:) [facility] zkueuy9920-16-24 14:10:00 * Test Item Value Reference Range Interpretation Comme nts mssa PCR surveillance screen (test code = mssa PCR surveillance screen) see below performing lab: (test code = performing lab:) [facility] Differential panel - Ctmnv3638-52-17 14:10:00* Test Item Value Reference Range Interpretation Comme nts white blood cell (test code = white blood cell) 4.6 K/mm3 5.8-11.0 L red blood cell (test code = red blood cell) 3.93 M/mm3 4.2-5.4 L hemoglobin (test code = hemoglobin) 13.0 g/dL 12-16 hematocrit (test code = hematocrit) 37.3 % 37-47 mean cell volume (test code = mean cell volume) 95 fL 80-98 mean cell HGB (test code = m ryan cell HGB) 33.1 pg 27-34 mean cell HGB concentration (test code = mean cell HGB concentration) 34.9 g/dL 30.8-34.1 H red cell distribution width (test code = red cell distribution width) 11.9 % 11-16 plt (test code = plt) 277 K/mm3 130-400 mean platelet volume (test c ode = mean platelet volume) 9.9 fL 8.9-12.1 neutrophil % (test code = neutrophil %) 50.1 % 45-70 lymphocyte % (test code = lymphocyte %) 36.4 % 20-40 monocyte % (test code = mono cyte %) 8.5 % 3-10 eosinophil % (test code = eosinophil %) 4.4 % 1-5 basophil % (test code = baso doris %) 0.4 % 0.0-1.1 neutrophil # (test code = neutrophil #) 2.30 K/mm3 2.00-7.50 lymphocyte # (test code = lymphocyte #) 1.67 K/mm3 1.50-4.00 monocyte # (test code = mono cyte #) 0.39 K/mm3 0.2-0.8 eosinophil # (test code = eosinophil #) 0.20 K/mm3 0.04-0.4 basophil # (test code = baso doris #) 0.02 K/mm3 0.02-0.10 manual diff required (test c ode = manual diff required) no manual diff nucleated red blood cell (te st code = nucleated red blood cell) 0 % 0-0 performing lab: (test code = performing lab:) [facility] 2000 panel - Serum or Iravci9271-28-41 14:10:00* Test Item Value Reference Range Interpretation Comme nts sodium (test code = sodium) 139 mmol/L 136-145 potassium (test code = potassium) 4.3 mmol/L 3.5-5.1 chloride (test code = chloride) 103.0 mmol/L 98-107 carbon dioxide (test code = carbon dioxide) 27.2 mmol/L 21-32 glucose (test code = glucose) 154 mg/dL 70-110 H blood urea nitrogen (test co de = blood urea nitrogen) 15 mg/dL 7-18 glomerular filtration rate ( test code = glomerular filtration rate) 101.0 >60 creatinine (test code = creatinine) 0.51 mg/dL 0.55-1.30 L total protein (test code = t otal protein) 6.4 g/dL 6.4-8.2 albumin (test code = albumin) 3.5 g/dL 3.4-5.0 globulin (test code = globulin) 2.9 g/dL 2.2-4.2 albumin/globulin ratio (test code = albumin/globulin ratio) 1.2 0.7-2.0 calcium (test code = calcium) 8.8 mg/dL 8.2-10.1 bilirubin total (test code = bilirubin total) 0.10 mg/dL 0.2-1.00 L SGOT/AST (test code = SGOT/AST) 21.0 U/L 15-37 SGPT/ALT (test code = SGPT/ALT) 25.0 U/L 12-78 alkaline phosphatase total ( test code = alkaline phosphatase total) 81 U/L 46-116 performing lab: (test code = performing lab:) [facility]2022-08-10 14:10:00* Test Item Value Reference Range Interpretation Comme nts Hemoglobin A1c/Hemoglobin.to maria dolores in Blood (test code = 4548-4) 6.9 % 4.8-5.9 H performing lab: (test code = performing lab:) [facility] resistant Staphylococcus aureus [Presence] in Specimen by Organism specific bffhgjn9838-99-50 14:10:00* Test Item Value Reference Range Interpretation Comme nts MRSA surveillance screen (te st code = MRSA surveillance screen) see below performing lab: (test code = performing lab:) [facility] lirwox2807-21-53 14:10:00 * Test Item Value Reference Range Interpretation Comme nts mssa PCR surveillance screen (test code = mssa PCR surveillance screen) see below performing lab: (test code = performing lab:) [facility] W Auto Differential panel - Jcdty1334-05-24 14:10:00* Test Item Value Reference Range Interpretation Comme nts white blood cell (test code = white blood cell) 4.6 K/mm3 5.8-11.0 L red blood cell (test code = red blood cell) 3.93 M/mm3 4.2-5.4 L hemoglobin (test code = hemoglobin) 13.0 g/dL 12-16 hematocrit (test code = hematocrit) 37.3 % 37-47 mean cell volume (test code = mean cell volume) 95 fL 80-98 mean cell HGB (test code = m ryan cell HGB) 33.1 pg 27-34 mean cell HGB concentration (test code = mean cell HGB concentration) 34.9 g/dL 30.8-34.1 H red cell distribution width (test code = red cell distribution width) 11.9 % 11-16 plt (test code = plt) 277 K/mm3 130-400 mean platelet volume (test c ode = mean platelet volume) 9.9 fL 8.9-12.1 neutrophil % (test code = neutrophil %) 50.1 % 45-70 lymphocyte % (test code = lymphocyte %) 36.4 % 20-40 monocyte % (test code = mono cyte %) 8.5 % 3-10 eosinophil % (test code = eosinophil %) 4.4 % 1-5 basophil % (test code = baso doris %) 0.4 % 0.0-1.1 neutrophil # (test code = neutrophil #) 2.30 K/mm3 2.00-7.50 lymphocyte # (test code = lymphocyte #) 1.67 K/mm3 1.50-4.00 monocyte # (test code = mono cyte #) 0.39 K/mm3 0.2-0.8 eosinophil # (test code = eosinophil #) 0.20 K/mm3 0.04-0.4 basophil # (test code = baso doris #) 0.02 K/mm3 0.02-0.10 manual diff required (test c ode = manual diff required) no manual diff nucleated red blood cell (te st code = nucleated red blood cell) 0 % 0-0 performing lab: (test code = performing lab:) [facility] 2000 panel - Serum or Cxyynj7549-45-43 14:10:00* Test Item Value Reference Range Interpretation Comme nts sodium (test code = sodium) 139 mmol/L 136-145 potassium (test code = potassium) 4.3 mmol/L 3.5-5.1 chloride (test code = chloride) 103.0 mmol/L 98-107 carbon dioxide (test code = carbon dioxide) 27.2 mmol/L 21-32 glucose (test code = glucose) 154 mg/dL 70-110 H blood urea nitrogen (test co de = blood urea nitrogen) 15 mg/dL 7-18 glomerular filtration rate ( test code = glomerular filtration rate) 101.0 >60 creatinine (test code = creatinine) 0.51 mg/dL 0.55-1.30 L total protein (test code = t otal protein) 6.4 g/dL 6.4-8.2 albumin (test code = albumin) 3.5 g/dL 3.4-5.0 globulin (test code = globulin) 2.9 g/dL 2.2-4.2 albumin/globulin ratio (test code = albumin/globulin ratio) 1.2 0.7-2.0 calcium (test code = calcium) 8.8 mg/dL 8.2-10.1 bilirubin total (test code = bilirubin total) 0.10 mg/dL 0.2-1.00 L SGOT/AST (test code = SGOT/AST) 21.0 U/L 15-37 SGPT/ALT (test code = SGPT/ALT) 25.0 U/L 12-78 alkaline phosphatase total ( test code = alkaline phosphatase total) 81 U/L 46-116 performing lab: (test code = performing lab:) [facility]2022-08-10 14:10:00* Test Item Value Reference Range Interpretation Comme nts Hemoglobin A1c/Hemoglobin.to maria dolores in Blood (test code = 4548-4) 6.9 % 4.8-5.9 H performing lab: (test code = performing lab:) [facility] resistant Staphylococcus aureus [Presence] in Specimen by Organism specific bccmgff9572-64-68 14:10:00* Test Item Value Reference Range Interpretation Comme nts MRSA surveillance screen (te st code = MRSA surveillance screen) see below performing lab: (test code = performing lab:) [facility] dxymvx8916-34-97 14:10:00 * Test Item Value Reference Range Interpretation Comme nts mssa PCR surveillance screen (test code = mssa PCR surveillance screen) see below performing lab: (test code = performing lab:) [facility]- CT UP EXTREM W/O CONT QI2131-74-39 11:41:00 [facility] 1955 Sex: F Patient Name: TALIB MARKS Unit No: [id number] EXAMS: CPT CODE: [id number] CT UP EXTREM W/[place] [address] CT OF THE RIGHT SHOULDER WITH SAGITTAL AND CORONAL RECONSTRUCTIONS DIAGNOSIS: There is a healed malunion of the proximal humerus with proximal and lateral displacement of the humeral neck and shaft and internal rotation of the humeral head. Degenerative change of the glenohumeral joint is noted with cartilage thinning and osteophyte. COMMENT: COMPARISON: No prior exams available. Scans were performed with thin sections and reconstructions were obtained. CT radiation dose optimization is achievedfor this examination by the use of a CT protocol in accordance with ACR practice standards and adherence to liquid center assembler's recommendations. Posttraumatic and degenerative changes are present as described. There is no evidence for rotator cuff atrophy. There is no evidence for an intra-articular loose body. at 1141 Reported and signed by: Yash Delgado MD CC: Maverick Pringle MD; Tyron Dotson MD Technologist: Moisés Walden,RT(R) CTDI: DLP: Trnscrpt: 08/10/2022 (1141) tANA ROSAJCL [facility] NAME: TALIB MARKS [address] [facility] PHYS: Maverick Echeverria MD : 1955 AGE: 67 SEX: F [place], [place] [address] LOC: Y.RAD PHONE #: [phone] EXAM DATE: 08/10/2022 STATUS: REG CLI FAX #: [phone] RAD #: D/C DT PAGE 1 Signed Report Patient Name: TALIB MARKS Unit No: [id number] EXAMS: CPT CODE: [id number] CT UP EXTREM W/[place] [address] (Continued) Orig Print D/T: S: 08/10/2022 (1144) [facility] NAME: TALIB MARKS [address] [facility] PHYS: Maverick Echeverria MD : 1955 AGE: 67 SEX: F [place], [place] [address] LOC: Y.RAD PHONE #: [phone] EXAM DATE: 08/10/2022 STATUS: REG CLI FAX #: [phone] RAD #: D/C DT PAGE 2 Signed ReportPOCT HEMOGLOBIN A1C [id number] 19:09:00* Test Item Value Reference Range Interpretation Comme [facility] POCT HBA1C (test code = 4548-4) 6.9 % 4-6 A Lab Interpretation (test cod e = 25095-8) [facility]normal [facility] [id number] 19:09:00* Test Item Value Reference Range Interpretation Comme [facility] POCT HBA1C (test code = 4548-4) 6.9 % 4-6 A Lab Interpretation (test cod e = 81365-6) Abnormal [facility]- XR HUMERUS 2 + V [id number] 07:06:00 [facility] : 1955 Sex: F Patient Name: TALIB MARKS Unit No: [id number] EXAMS: CPT CODE: [id number] XR HUMERUS 2 + [place] [address] Rightshoulder 2 views COMMENT: There is a comminuted fracture of the proximal humerus with an oblique humeral neck fracture with impaction and a greater tuberosity fracture. Degenerative change is noted in the glenohumeral joint. at 0706 Reported and signed by: Yash Delgado MD CC: Tyron Dotson MD Technologist: Kristen Gamboa RT.(R) Transcribed D/ (0706) tBETZAIDAL [facility] NAME: TALIB MARKS [address] PHYS: Tyron Tiwari MD : 1955 AGE: 66 SEX: F [place] [address] LOC: KIANA PHONE #: [phone] EXAM DATE: 12/27/2021 STATUS: DEP ER FAX #: [phone] RAD #: D/C DT PAGE 1 Signed Report Patient Name: TALIB MARKS Unit No: [id number] EXAMS: CPTCODE: [id number] XR HUMERUS 2 + V [place] [address] (Continued) Orig Print D/T: S: 12/28/2021 (0709) [facility] NAME: TALIB MARKS [address] [facility] PHYS: Tyron Tiwari MD : 1955 AGE: 66 SEX: F [place] [address] LOC: KIANA PHONE #: [phone] EXAM DATE: 12/27/2021 STATUS: DEP ER FAX #: [phone] RAD #: D/C DT PAGE 2 Signed Report Notes Date/Time Note Provider Source 2023-08-30 10:32:24 wm+lAQJhoo+dUmJSnpuHu6lDaGpPrZRLrhgqCC N8Xksp0Nzz+Z/akn6L+55o6K3s0933-96-60Z7 0:32:24 NOV: 11/20/23LOV: 05/18/23Refill deniedRx sent in 08/21/23 by provider 96398-8Szobgwbhs encounter FkwgLU1157-00-87N37:42:06Telephone encounter NoteTXT1.2.840.839666.1.13.104.2.7.2.7 88598|[id number] for patient nwnp59322-2PhfpRYAWMQHCSZEDxxrvxcbe C-CDA narrative [id number] Moreno [address] Ir[id number] BLFQQIFGRFNVOSWZQRON9144-64-06U75:42:0 61.2.840.559018.1.72.3.15|1.2.840.1143 50.1.13.104.2.7.2.727879_[id number] Dottie De La Rosa [facility] 2023-07-16 11:57:00 7gxk7g6Pl87x1zjdoS3Osyoeqv5tQd1Vfgm6yV POy+WwS94zDCwhT6adnKhY35fs0411-86-22K6 1:57:00 Pt given printed and verbal discharge instructions regarding acute cough, encouraged hydration.Prescriptions provided.Pt verbalized understanding of instructions, pt awake alert oriented, resp reg unlabored, skin w/d, color appropriate for race, moves all ext well,pt encouraged to follow up with pcp.Advised to seek medical attention for new/prolonged/worsening of symptoms.No adverse reaction to meds given in ER noted upon discharge.Awake, alert oriented, resp reg unlabored, skin w/d, pt leaving amb with steady gait, in no apparent distress, accompanied by son. 22095-5Wcrdixuza department AhglLG1088-67-82T99:03:49[facility] NoteTXT1.2.840.508471.1.13.104.2.7.2.7 27224|[id number] for patient qxop95094-5BkmfYRVQKHHCMQDSbfjxiyrl C-CDA narrative text[id number] SJUJZWEULGAVBOPUDZRN0864-63-02N10:03:4 91.2.840.910029.1.72.3.15|1.2.840.1143 50.1.13.104.2.7.2.727879_[id number] [facility] 2023-07-16 09:45:00 Odatxjjpl9nFnSy7xrMztNY0sLm/GFgmbsjL5l tocgag22dJCOghbL+dx4duI1OL8329-27-09I9 9:45:00 Patient came in with complaints of cough, congestion, SOB since 2 weeks. 26143-4Upcatmnrw department Triage pvhkDM8655-00-20C77:56:37[facility] department Triage noteTXT1.2.840.983724.1.13.104.2.7.2.7 63562|[id number] for patient fgdu60133-8Xmfffanny department NoteLNNARRATIVEFormatted C-CDA narrative [id number] C Heredia RNUT[id number] RBNJQHAHETOJSFHOCJUC5828-61-53M80:56:3 71.2.840.388314.1.72.3.15|1.2.840.1143 50.1.13.104.2.7.2.727879_[id number] Niki Steele RN [facility] 2023-07-16 09:44:00 eUzFWOdUWWJxTBIrJgMy1J+BA+eTuf86a90qdn 7QvnHExFSjvxiU4mMoj9kAt/ok0804-94-65A1 9:44:00 [facility] Emergency Department NotePatient Name: Talib Osuna of : 1955 67 year old femaleTreatment Room: Room/bed info not foundMedical Record Number: [id number] Care Physician: Raffi FisherPatient Escorted by: Family [5]Mode of Arrival: Personal means [1]EMS Treatment Prior to ED Arrival:Travel and Exposure Screening:SymptomsDoes patient have any of these symptoms?: (not recorded)Exposure ScreeningHas patient had contact with someone with a communicable disease in the last month?: (not recorded)Diseases exposed to:: (not recorded)Is Patient ?: (not recorded)Exposure Date: (not recorded)Chief Complaint:Chief ComplaintPatient presents withCoughShortness of BreathCongestionHistory of Present Illness:The patient presents from home for evaluation for cough and congestion as well as worsening shortness of breath over the past 2 weeks. No fevers. She has been around sick contacts. She last had some medications for her symptoms around 4:00 this morning. She is a former smoker. No history of asthma or COPD. No history of congestive heart failure. She does have high blood pressure, diabetes and history of an FL in the past. No leg swelling.Here for evaluation.Past Medical History/Immunizations:Past Medical History:Diagnosis DateArthritisDepressionDiabetes mellitusHypertensionMyocardial infarctionOther and unspecified hyperlipidemiaPseudophakia of both eyesAllergies:AllergiesAllergen ReactionsVancomycin Unknown - See commentsparalysisCovid-19 (Sars-Cov-2) Vaccine, Ad26 RashPast Social History:Tobacco UseFormer; Cigarettes: Quit 07/24/2005; 3.00 packs/daySmokeless Tobacco: Never used smokeless tobacco.Alcohol UseYes.Comments: occasionalDrug UseNo.Past Surgical History:Past Surgical History:Procedure Laterality DateCHOLECYSTECTOMYDUPUYTREN'S CONTRACTURE RELEASE 08/02/2013DUPUYTREN'S CONTRACTURE RELEASE 08/02/2013Surgeon: Gunnar Knox, DO; [facility] CATARACT EXTRACTION WITH INTRAOCULAR LENS IMPLANTEYE SURGERYHAND/FINGER SURGERY UNLISTEDHYSTERECTOMYJOINT SURGERYright elbowTONSILLECTOMYReview of Systems:Review of SystemsConstitutional: Negative for chills and fever.Respiratory: Positive for cough and shortness of breath.Cardiovascular: Negative for chest pain.Gastrointestinal: Negative for abdominal pain and vomiting.Genitourinary: Negative for dysuria.Musculoskeletal: Negative for arthralgias, neck pain and neck stiffness.Skin: Negative for wound.Neurological: Negative for dizziness.Psychiatric/Behavioral: Negative for agitation.Endocrine: Negative for goiter.Physical Exam:ED Triage Vitals [07/16/23 0900]Weight 70.3 kg (155 lb)Actual or estimatedHeight 1.575 m (5' 2")BP 121/69Pulse 103Resp 16Temp 37.2 ?C (99 ?F)Temp srcSpO2 97 %Measured onPhysical ExamVitals and nursing note reviewed.Constitutional:Appearance: Normal appearance. She is normal weight.HENT:Head: Normocephalic and atraumatic.Right Ear: Tympanic membrane and ear canal normal.Left Ear: Tympanic membrane and ear canal normal.Nose: Nose normal.Mouth/Throat:Mouth: Mucous membranes are moist.Pharynx: Oropharynx is clear. No oropharyngeal exudate or posterior oropharyngeal erythema.Cardiovascular:Rate and Rhythm: Normal rate and regular rhythm.Pulses: Normal pulses.Pulmonary:Effort: Pulmonary effort is normal. No respiratory distress.Breath sounds: No stridor. No wheezing or rhonchi.Chest:Chest wall: No tenderness.Abdominal:General: There is no distension.Palpations: Abdomen is soft. There is no mass.Tenderness: There is no abdominal tenderness. There is no guarding.Hernia: No hernia is present.Musculoskeletal:General: Normal range of motion.Cervical back: Normal range of motion and neck supple.Skin:General: Skin is warm and dry.Neurological:General: No focal deficit present.Mental Status: She is oriented to person, place, and time.Radiology:XR CHEST 2 VWFinal ResultPROCEDURE:XR CHEST 2 VWORDERING PHYSICIAN: JESUSITA OWENHISTORY: CoughTECHNIQUE: PA and Lateral views of the chest were performed.TECHNICAL QUALITY: AdequateCOMPARISON: None availableFINDINGS:Support Devices: None.Cardiac Silhouette/Mediastinum/Tasneem: The cardiac, mediastinal, and hilarcontours are within normal limitsLungs/Pleural Spaces: There is no focal consolidation. The pleural spacesare clear.Chest Wall/Diaphragm/Upper Abdomen: The thoracic musculoskeletalstructures and the upper abdomen are within normal limits. Status postreverse right shoulder arthroplasty.IMPRESSIONNo acute cardiopulmonary processRL: 415End of report. Lab Results:Lab ResultsCOVID-19 (ID NOW RAPID TESTING) - NormalResult Value Ref CxtxrBUDD-XqD-7 Rapid ID NOW Not Detected Not DetectedRAPID INFLUENZA A/B - NormalRapid Influenza A Negative NegativeRapid Influenza B Negative NegativeEKG:If EKG completed, see Procedure Note.Orders and Treatments:Orders Placed This EncounterProceduresXR CHEST 2 VWCOVID-19 (ID NOW TESTING)RAPID INFLUENZA A/BLab Only COVID InterpretationOrders Placed This EncounterMedicationscodeine-guaifenesi n (ROBITUSSIN AC) 10-100 mg/5 mL oral solution 10 mLalbuterol 90 mcg/actuation inhalerbrompheniramine-pseudoephedrine -DM (BROMFED DM) 2-30-10 mg/5 mL syrupFirst Provider Eval:ED EventsDate/Time Event User Ahqjihcv53/07/24 0945 Medical Screening Begins JESUSITA OWEN DO --07/16/23 0945 First Provider Evaluation JESUSITA OWEN DO --ED COURSEDiagnosis/Impression as of 07/16/23 1145Acute coughProcedures:ProceduresMDM:Medical Decision MakingThe patient presents from home for evaluation for worsening shortness of breath over the past 2 weeks as well as cough, congestion and not feeling well. She has been around sick contacts. She has been using ldqq-buk-anpnpbo cough and cold medications reports they are not helping. She last had something around 4 AM today. No history of asthma, COPD or congestive heart failure. She is a former smoker.Vital signs are stable in the ER.She has no use accessory muscles.Stable to speak in full and complete sentences without difficulty.Her lungs are clear bilaterally.No pitting edema to her legs.Will obtain a chest x-ray to evaluate possible pneumonia.Will screen the patient for COVID and influenza.Anticipate discharge home later.1145 -the patient is doing well here in the ER.Her chest x-ray shows no acute cardiopulmonary issues.She is negative for COVID and negative for flu.She remained stable here in the ER and is okay for discharge home with PCP follow-up.Problems Addressed:Acute cough: acute illness or injuryAmount and/or Complexity of Data ReviewedLabs: ordered. Decision-making details documented in ED Course.Radiology: ordered and independent interpretation performed. Decision-making details documented in ED Course.RiskOTC drugs.Prescription drug management.Flowsheet Documentation:Scoring Tools:No data recordedDisposition/Condition:ED DispositionED DispositionDisch - HomeConditionStableComment--Discharge Medications:Patient's MedicationsSTART taking these medicationsALBUTEROL 90 MCG/ACTUATION INHALER Inhale 2 Puffs every 4 (four) hours as needed for Wheezing or Shortness of Breath.BROMPHENIRAMINE-PSEUDOEPHEDRINE -DM (BROMFED DM) 2-30-10 MG/5 ML SYRUP Take 5 mL by mouth 4 (four) times daily as needed for Cold symptoms or Cough.CONTINUE taking these medications which have NOT CHANGEDACETONE, URINE, TEST (KETONE URINE TEST) STRIP Use as directed as needed to check for ketonesALISKIREN (TEKTURNA) 150 MG TABLET Take 1 tablet by mouth in the morning.ASPIRIN 81 MG ORAL CHEW once dailyATORVASTATIN 40 MG TABLET Take 2 tablets by mouth at bedtime.BLOOD-GLUCOSE SENSOR (DEXCOM G6 SENSOR) IRMA Change sensor every 10 daysBLOOD-GLUCOSE TRANSMITTER (DEXCOM G6 TRANSMITTER) IRMA Change every 90 daysCHOLECALCIFEROL, VITAMIN D3, (VITAMIN D3) 1,000 UNIT TABLET Take 1 tablet by mouth in the morning.CYANOCOBALAMIN, VITAMIN B-12, (VITAMIN B-12 ORAL) Take by mouth daily.DEXLANSOPRAZOLE (DEXILANT) 60 MG CAPSULE Take by mouth.DICLOFENAC SODIUM (VOLTAREN) 1 % GEL Apply to area(s) as needed for Pain (scale 7-10) or Pain (scale 4-6).DILTIAZEM 120 MG TABLET Take 1 tablet by mouth in the morning and 1 tablet at noon and 1 tablet in the evening.HYDROCHLOROTHIAZIDE 25 MG TABLET Take 1 tablet by mouth in the morning.INSULIN DEGLUDEC 200 UNIT/ML (3 ML) INPN inject 26 Units under the skin daily.INSULIN LISPRO (HUMALOG KWIKPEN INSULIN) 100 UNIT/ML PEN INJECTOR inject under the skin 3 (three) times daily before meals, est 40 units/day.INSULIN NEEDLES, DISPOSABLE, (BD ULTRAFINE III MINI PEN) 31 GAUGE X 3/16" NDLE 4 (four) times daily.MULTI-VITAMIN ORAL 1 dailyVITAMIN C 500 MG ORAL TAB 1 dailySTART taking Modified Medications as PrescribedNo medications on fileSTOP taking these medicationsNo medications on fileFollow-up:Electronically signed by:Jesusita Owen DO07/16/23 1145 15737-2Mmbzsjxwb Emergency department UvqhRR8281-86-36I53:45:49Physician Emergency department NoteTXT1.2.840.259886.1.13.104.2.7.2.7 76449|[id number] for patient hwmi61558-9Icqpyrlqo department NoteLNNARRATIVEFormatted C-CDA narrative text[address] Ry[id number] DCABEKKBVTRLRQCQLVGX4555-35-55L75:45:4 91.2.840.439384.1.72.3.15|1.2.840.1143 50.1.13.104.2.7.2.727879_[id number] [facility] 2023-07-12 16:37:39 EIz54/TIveKYTzN7YxPD5K+M+tsW4wGk54bY4C OWwDW8xZsnvX5qX+Bx7EzZTUpO1179-30-05K9 6:37:39 Images from the original note were not included.Received order form from [employer], form has been signed by provider and faxedFax: Opvwvuay confirmation receipt [id number] encounter DsjhOG2346-04-01U02:38:55Telephone encounter NoteTXT1.2.840.227635.1.13.104.2.7.2.7 06798|[id number] for patient wdqj95090-8QqclJOEBLBLRFULSnpcdknxa C-CDA narrative [id number] [place] [address] [id number] JEWLAGBJHVHAVGLCAGIP1093-92-84P26:38:5 51.2.840.276337.1.72.3.15|1.2.840.1143 50.1.13.104.2.7.2.727879_[id number] Dottie De [facility] 2023-06-09 12:14:30 pvzc+pQaex807Y0YFc3aU6vvKUlmaYhZy0fr3D D0DpaB/ctm2i/vS80T64J24Jc/2798-57-12F3 2:14:30 Received fax from [facility] requesting [facility] chart notes. Faxed [facility] chart notes from 05/18/23. Pilazhec confirmation receipt [id number] encounter LmguAV3406-15-23J45:16:41Telephone encounter NoteTXT1.2.840.688125.1.13.104.2.7.2.7 73967|[id number] for patient zmno76019-5AykbNYXXIDIBFKYJtxilnpyf C-CDA narrative text[id number] GLBFJXFSALRERTFBJRBH0204-52-72E90:16:4 11.2.840.118786.1.72.3.15|1.2.840.1143 50.1.13.104.2.7.2.727879_[id number] [facility] 2022-08-23 10:05:00 [id number]+mQTrx9sNrgyQvx BOoELmfZ3RQJxEAGm3swYArxGA/Vjve5cnZ/xs 7546-60-79Z98:05:00 [facility] ([facility])Clinical NoteREPORT#:[id number] REPORT STATUS: SignedDATE:08/23/22 TIME: 1005 PATIENT: TALIB MARKS UNIT #: [id number]#: [id number] [facility] AGE: 67 SEX: F ATTEND: Maverick Pringle [facility] AUTHOR: Charlie Cueva MD * ALL edits or amendments must be made on the electronic/computer document * Clinical NoteNote:[facility] Charlie Alvares M.D. (cell text [phone]) Assessment/Plan1.) Anemia of acute blood loss- .Hgb 10.9 , asymptomatic.2.) S/p Right RSA- .acute multi-modal pain control and followup. Anticoagulation as per Dr. Pringle.3.) Hypertension- .follow BP and hold Rxs if SBP<120.4.) Diabetes-2 GERD OsteoArthritis Hyperlipidemia- .continue on Rx.* OK for DISCHARGE per Internal Medicine. Prior Events/Overnight: Uneventful.Chief Complaint: No significant complaints. ObjectiveVital Signs: Date Time Temp Pulse Resp B/P B/P Pulse O2 O2 Flow FiO2 Mean Ox Delivery Rate 08/23 0800 94 Room air 08/23 0724 97.0 103 12 115/67 82.8 98 Room air 08/23 0419 97.5 99 16 112/68 82.3 97 Nasal cannula 08/23 0335 97 Nasal 2 28 cannula 08/22 2233 98.2 102 14 112/70 83.6 98 Nasal cannula 02/13 2206 96 Nasal 2 28 cannula 08/22 2045 Nasal 2 cannula 08/22 1908 97.7 112 14 114/68 82.9 97 Nasal cannula 08/22 1647 Nasal cannula 08/22 1600 98 Nasal 3 cannula 08/22 1537 97.0 98 12 99/63 75.3 98 Nasal cannula 08/22 1501 Nasal 3 cannula 08/22 1455 94 14 117/56 98 Nasal 3 cannula 08/22 1440 97 16 107/51 97 Nasal 2 cannula 08/22 1434 Simple 6 mask 08/22 1418 97.0 95 16 123/58 96 Simple 6 mask 08/22 1111 88 29 151/92 100 Simple 6 mask 08/22 1106 95 16 148/76 97 1 Gen: Alert, oriented, in mild discomfort Neck: No Masses, No Thyromegaly-CV: Regular Rate Rhythm / Edema- no significant Resp: Clear To Ascultation / Normal Respiratory EffortABD: NonTender / NonDistended MS/Skin: No sign of compartment syndrome / shoulder dressing dry, cleanOther arm in sling, normal capillary refill operative side digits. Wriggls fingers. Labs/X-ray: Laboratory Tests: 08/23 08/23 08/22 08/22 0517 0500 1939 1756 Chemistry Sodium (136 - 145 mmol/L) 141 Potassium (3.5 - 5.1 mmol/L) 4.1 Chloride (98 - 107 mmol/L) 105.0 Carbon Dioxide (21 - 32 mmol/L) 24.9 BUN (7 - 18 mg/dL) 21 H Creatinine (0.55 - 1.30 mg/dL) 0.67 Glomerular Filtr Rate (>60) 94.6 Glucose (70 - 110 mg/dL) 145 H POC Glucose (60 - 125 mg/dL) 147 H 292 H 206 H Calcium (8.2 - 10.1 mg/dL) 8.4 Hematology WBC (5.8 - 11.0 K/mm3) 11.7 H RBC (4.2 - 5.4 M/mm3) 3.32 L Hgb (12 - 16 g/dL) 10.9 L Hct (37 - 47 %) 31.8 L MCV (80 - 98 fL) 96 MCH (27 - 34 pg) 32.8 MCHC (30.8 - 34.1 g/dL) 34.3 H RDW (11 - 16 %) 11.7 Plt Count (130 - 400 K/mm3) 267 MPV (8.9 - 12.1 fL) 10.2 Neut % (Auto) (45 - 70 %) 74.5 H Lymph % (Auto) (20 - 40 %) 15.5 L Duchesne % (Auto) (3 - 10 %) 9.2 Eos % (Auto) (1 - 5 %) 0.3 L Baso % (Auto) (0.0 - 1.1 %) 0.2 Neut # (Auto) (2.00 - 7.50 K/mm3) 8.73 H Lymph # (Auto) (1.50 - 4.00 K/mm3) 1.81 Duchesne # (Auto) (0.2 - 0.8 K/mm3) 1.08 H Eos # (Auto) (0.04 - 0.4 K/mm3) 0.03 L Baso # (Auto) (0.02 - 0.10 K/mm3) 0.02 Add Manual Diff (MANUAL DIFF) NO Nucleated RBC % (0 - 0 %) 0 Charlie Alvares M.D. at 1210 RPT #:[id number] OF REPORT CLClinical absi2576-25-89I86:05:00Y.[id number]- 0032AVAvailable for patient ipylFEOQJFVKFSEYUA2803-06-61K67:10:45 [facility] 2022-08-23 07:59:00 [id number]+UrwYYjQDFbrbAkZ8cYqFtg IAeX6y/Vo/u+wGHXpLCRbFfw6qbUg0TOPMMDX7 5773-54-22N82:59:00 [facility] ([facility])Pain Management Progress NoteREPORT#:[id number] REPORT STATUS: SignedDATE:08/23/22 TIME: 758 PATIENT: TALIB MARKS UNIT #: [id number]#: [id number] [facility] AGE: 67 SEX: F ATTEND: Maverick Pringle AUTHOR: Isi Cantor NP * ALL edits or amendments must be made on the electronic/computer document * SubjectiveChief complaint:RIGHT SHOULDER PAIN S/P RT TSAComments:Hematology: 08/23 0500 Hematology WBC (5.8 - 11.0 K/mm3) 11.7 H Hgb (12 - 16 g/dL) 10.9 L Hct (37 - 47 %) 31.8 L Plt Count (130 - 400 K/mm3) 267 Vital Signs: Date Time Temp Pulse Resp B/P B/P Pulse O2 O2 Flow FiO2 Mean Ox Delivery Rate 08/23 0724 36.1 103 12 115/67 82.8 98 Room air 08/23 0419 36.4 99 16 112/68 82.3 97 Nasal cannula 08/23 0335 97 Nasal 2 28 cannula 08/22 2234 36.8 102 14 112/70 83.6 98 Nasal cannula 08/22 2206 96 Nasal 2 28 cannula 08/22 2044 Nasal 2 cannula History: PMH:IDDM, HTN, TACHYCARDIA, [place], EXSMOKER POD:1 MD who placed block: DR. FABIAN Type of block: IS S/S Time block wore off: 0300 Activity status:AMBULATING, TOLERATING DIET, PASSING FLATUS Pain: CONTROLLEDPhysical Exam: VAS: 4 LOS: 1 Resp Quality: 1 Side Effects: NONE MOTOR MVMT AND STRENGTH INTACT TO HANDPlan: BLOCK FOLLOW UP at 0801 RPT #:[id number] OF REPORT PRProgress pexn4756-09-93J17:59:00Y.[id number]- 0017AVAvailable for patient xwtwRCWHDHICFHUFOW4601-70-61P65:01:18 [facility] 2022-08-23 06:50:00 [id number]/yXcVZLphVkLwqQMvw2ZK zaWvvmokbxxJFXjMxXYqmJ3g/I+1rv0dNxyc60 9916-61-36V05:50:00 [facility] ([facility])Discharge SummaryREPORT#:[id number] REPORT STATUS: SignedDATE:08/23/22 TIME: 0650 PATIENT: TALIB MARKS UNIT #: [id number]#: [id number] [facility] AGE: 67 SEX: F ATTEND: PinoMaverick Randy MDADM AUTHOR: Hany Cardona DO * ALL edits or amendments must be made on the electronic/computer document * General InformationDischarge date: 08/23/22Discharge diagnosis:R PHF MALUNIONHospital course:Discharge Diagnosis: R PHF MALUNIONDischarge: Home Pt Condition: Stable Activity: Ambulate with Assistance Diet as tolerated Sig Findings: uneventful courseTreatment Rendered: R RSAPrescriptions: On chartSpecial Instructions: REMAIN IN SLINGFollow- up appointment: 2 Week(s) Brief Hospital CourseThe patient underwent the above procedure on their admission date without complication. Postoperatively they were transferred to the orthopedic patient care unit. They received 24hrs postoperative antibiotics. They were transitionedfrom IV to oral pain medications with good control at discharge. They were placed in a sling and worked on elbow/wrist ROM and ADLs with PT. Once patient met all criteria they were deemed appropriate for discharge. They had no other complications during the visit. Med Rec Med RecDischarge meds:Stop taking the following medications:traMADol (ULTRAM) 50 MG TAB 50 MILLIGRAM ORAL EVERY 6 HOURS NEEDED. as needed for ACUTE PAIN Continue taking these medications:HYDROCHLOROTHIAZIDE (HYDRODIURIL) 25 MG TAB 25 MILLIGRAM ORAL DAILY. DILTIAZEM (CARDIZEM) 120 MG TAB 120 MILLIGRAM ORAL DAILY. DEXLANSOPRAZOLE DR (DEXILANT) 60 MG CAP.DR.MP 60 MILLIGRAM ORAL DAILY. ALISKIREN (TEKTURNA) 150 MG TAB 150 MILLIGRAM ORAL DAILY. methocarbamoL (ROBAXIN) 500 MG TAB 750 MILLIGRAM ORAL THREE TIMES A DAY. INSULIN DEGLUDEC (TRESIBA FLEXTOUCH U-100 (3mL)) 100 UNIT/ML (3 ML) PEN.INJCTR 26 UNIT SUBCUTANEOUS DAILY. INSULIN LISPRO (HumaLOG KWIKPEN (3mL)) 100 UNIT/ML INSULN.PEN 0 UNITS SUBCUTANEOUS TWICE DAILY. Instructions: SLIDING SCALE ATORVASTATIN (LIPITOR) 40 MG TAB 40 MILLIGRAM ORAL BEDTIME. DICLOFENAC SODIUM (DICLOFENAC SODIUM 1%) 1 % GEL 1 APPLIC TOPICAL FOUR TIMES DAILY NEEDED. as needed for PAIN DICLOFENAC EPOLAMINE (FLECTOR 1.3%) 1.3 % PATCH 1 PATCH TOPICAL TWICE DAILY NEEDED. as needed for PAIN MULTIVITAMIN/MIN/IRON/LUTEIN (CENTRUM SILVER ULTRA WOMEN) 1 EACH TAB 1 EACH ORAL DAILY. MAGNESIUM OXIDE (MAGNESIUM OXIDE) 250 MG TAB 250 MILLIGRAM ORAL DAILY. CYANOCOBALAMIN (VITAMIN B-12) 1,000 MCG TAB 1,000 MICROGRAM ORAL DAILY. [TURMERIC] 1 CAPSULE ORAL DAILY. ASCORBIC ACID (VITAMIN C) 1,000 MG TAB 1,000 MILLIGRAM ORAL DAILY. OMEGA-3 FATTY ACIDS (FISH OIL) 1,000 MG CAP 1,000 MILLIGRAM ORAL BEDTIME. [MILK THISTLE] 1,000 MG 1 CAPSULE ORAL DAILY. ASPIRIN EC (ECOTRIN) 81 MG TAB.EC 81 MILLIGRAM ORAL DAILY. CHOLECALCIFEROL (VITAMIN D3) (VITAMIN D3) 125 MCG (5,000 UNIT) TAB 5,000 UNITS ORAL DAILY. [STOOL SOFTNER] 1 CAPSULE ORAL DAILY. BISACODYL EC (DULCOLAX EC) 5 MG TAB.DR 5 MILLIGRAM ORAL TWICE DAILY. PROMETHAZINE (PHENERGAN) 25 MG TAB 25 MILLIGRAM ORAL EVERY 6 HOURS NEEDED. as needed for NAUSEA/VOMITING Discharge Instructions PCP)( Discharge to: Home/Self Care Discharge InstructionsAdditional Discharge Routines: Attending Follow-Up)( Diet: Regular)( Activity: REMAIN IN SLING Follow-up AppointmentsAttending Physician: Attending Physician: Maverick Pringle MD at 0650 [facility] #:[id number] OF REPORT DSDischarge iwlfhjx5262-49-61Z08:50:00Y.[id number] 14-0007AVAvailable for patient xptdJIUARXAUKURPRM9168-04-94T71:50:48 [facility] 06:47[facility]00 [id number]S /3PCiVoxNVCydg7+IeDV+qHN8Z2hipp3HNLKQ4 5160-86-89I69:47:00 [facility] ([facility])Orthopaedic Progress NoteREPORT#:[id number] REPORT STATUS: SignedDATE:08/23/22 TIME: 0647 PATIENT: TALIB MARKS UNIT #: [id number]#: [id number] [facility] AGE: 67 SEX: F ATTEND: Maverick Pringle [facility] AUTHOR: Hany Cardona DO * ALL edits or amendments must be made on the electronic/computer document * SubjectiveComments:Subjective: Patient is alert, oriented, and resting comfortably. Tolerating PO intake well. Pain is tolerable. Denies CP or SOB. Denies Numbness, tingling or weakness. Objective:R Shoulder- dressing is clean, dry, and intact. Arm in sling. Sensation intact to Axillary, radial, median, ulnar nerves Able to fire deltoid Intact motor function in radial, median, ulnar nerves Radial pulse palpableLaboratory Tests 08/23/22 0500:[Embedded Image Not Available]Vital Signs: Date Time Temp Pulse Resp B/P B/P Pulse O2 O2 Flow FiO2 Mean Ox Delivery Rate 08/23 0419 36.4 99 16 112/68 82.3 97 Nasal cannula 08/23 0335 97 Nasal 2 28 cannula 08/22 2234 36.8 102 14 112/70 83.6 98 Nasal cannula 08/22 2206 96 Nasal 2 28 cannula 08/22 2045 Nasal 2 cannula 08/22 1908 36.5 112 14 114/68 82.9 97 Nasal cannula Assessment/ Plan: R RSA - Post op day #1 MEDICINE ON CONSULTMay discharge home when ready from orthopedic standpoint Follow up in office with physician in 2 week(s).Prescription for pain control in chart. at 0648 RPT #:[id number] OF REPORT PRProgress qrlg8923-75-31D41:47:00Y.[id number]- 0006AVAvailable for patient bknvWXVWBCGNVANWEX9708-11-48X04:48:27 [facility] 16:49:00 [id number]/uAc1pI0hGT2Cd/YUcNZGOxi BtM3qwIXSaDBzduiktCZG/GlYSll1im8Sbzhsq 0760-57-46O47:49:00 [facility] ([facility])Clinical NoteREPORT#:[id number] REPORT STATUS: SignedDATE:08/22/22 TIME: 1648 PATIENT: TALIB MARKS UNIT #: [id number]#: [id number] ROOM/BED: .Q20-WKLB: 53 AGE: 67 SEX: F ATTEND: Maverick Pringle [facility] AUTHOR: Charlie Cueva MD * ALL edits or amendments must be made on the electronic/computer document * Clinical NoteNote:[facility] Charlie Alvares MD(cell text [phone])Internal Medicine Consult at request of : Dr. Maverick Pringle. Chief Complaint: shoulder pain HPI: 67 yo F is now s/p Right Reverse total Shoulder Arthroplasty (RSA) by . Ms. Marks relates months of worsening right shoulder pain (recently severe), worse with activity, and with stiffness limitation in motion. She has failed conservative management.Comorbidities: see below. PmHx: Hypertension, Myocardial infarction, osteoarthritis, cataracts, hyperlipidemia, GERD, diabetes, constipation, tachycardia, sciatica, diabetic neuropathy, insomnia. BMI 30.4 ALLERGY: Allergies:vancomycin (Coded, Severe, ANAPHYLAXIS, 12/27/21) Home Medications: Home Medications:DILTIAZEM (CARDIZEM) 120 MG PO DAILY INSULIN DEGLUDEC (TRESIBA FLEXTOUCH U-100 (3mL)) 26 UNIT SUBQ DAILY INSULIN LISPRO (HumaLOG KWIKPEN (3mL)) 0 UNITS SUBQ BID ATORVASTATIN (LIPITOR) 40 MG PO BEDTIME DICLOFENAC SODIUM (DICLOFENAC SODIUM 1%) 1 APPLIC TOPICAL QID PRN PRN PAIN DICLOFENAC EPOLAMINE (FLECTOR 1.3%) 1 PATCH TOPICAL BID PRN PRN PAIN MULTIVITAMIN/MIN/IRON/LUTEIN (CENTRUM SILVER ULTRA WOMEN) 1 EACH PO DAILY MAGNESIUM OXIDE 250 MG PO DAILY CYANOCOBALAMIN (VITAMIN B-12) 1,000 MCG PO DAILY [TURMERIC] 1 CAP PO DAILY ASCORBIC ACID (VITAMIN C) 1,000 MG PO DAILY OMEGA-3 FATTY ACIDS (FISH OIL) 1,000 MG PO BEDTIME [MILK THISTLE] 1 CAP PO DAILY ASPIRIN EC (ECOTRIN) 81 MG PO DAILY CHOLECALCIFEROL (VITAMIN D3) (VITAMIN D3) 5,000 UNITS PO DAILY [STOOL SOFTNER] 1 CAP PO DAILY BISACODYL EC (DULCOLAX EC) 5 MG PO BID traMADol (ULTRAM) 50 MG PO Q6H PRN PRN ACUTE PAIN PROMETHAZINE (PHENERGAN) 25 MG PO Q6H PRN PRN NAUSEA/VOMITING HYDROCHLOROTHIAZIDE (HYDRODIURIL) 25 MG PO DAILY DEXLANSOPRAZOLE DR (DEXILANT) 60 MG PO DAILY ALISKIREN (TEKTURNA) 150 MG PO DAILY methocarbamoL (ROBAXIN) 750 MG PO TID SgHx: Tonsillectomy, hysterectomy, hernia repair, elbow repair, angioplasty, cholecystectomy, recurring cyst in breast removal. SHx: Tob: former FHx: .No significant hx of DVT/PE.Alcohol: none Drugs: none Lives: with son..Vitals:Vital Signs: Date Time Temp Pulse Resp B/P B/P Pulse O2 O2 Flow FiO2 Mean Ox Delivery Rate 08/22 1600 98 Nasal 3 cannula 08/22 1537 97.0 98 12 99/63 75.3 98 Nasal cannula 08/22 1501 Nasal 3 cannula 08/22 1455 94 14 117/56 98 Nasal 3 cannula 08/22 1440 97 16 107/51 97 Nasal 2 cannula 08/22 1434 Simple 6 mask 08/22 1418 97.0 95 16 123/58 96 Simple 6 mask 08/22 1111 88 29 151/92 100 Simple 6 mask 08/22 1106 95 16 148/76 97 1 08/22 0840 97.3 93 18 146/67 98 Gen: Alert, in mild discomfort.EYE: Nl lids conjunctiva.ENT: Nl ears Nose, nl lips,. Neck: No massesCV: Regular Rate Rhythm, no heave or significant murmur. Edema- none RESP: Clear to Auscultation, normal Respiratory effort.ABD: Soft, NonDistended,.MS/Skin: No sign of compartment syndrome / shoulder dressing dry, cleanOther arm in sling, normal capillary refill operative side digits...Preop Labs(08/10/22): CBC:. Hgb 13.0, Plt 277, CHEM: Na 139, K 4.3 , Cr 0.51 (eGFR 101.0%), . Ekg: NSR.(medium to high risk of complications or morbidity) (major surgery) (IV sedative, meds).Assessment Plan1.) Anemia of Acute Blood Loss- .will recheck tomorrow. 2.) S/p Right RSA- .acute multi-modal pain control and followup. Anticoagulation as per Dr. Pringle.3.) Hypertension- .follow BP and hold Rxs if SBP<120.4.) Diabetes-2 GERD OsteoArthritis Hyperlipidemia- .continue on Rx.. Charlie Alvares M.D. Thanks!.. G8417 BMI documented as above normal parameters and a f/u plan is spzuyusqkjX6422 - Patient screened for tobacco use AND identified as a tobacco non-flit9653H - ACP disscussion - default code status while at [facility]. at 2136 RPT #:[id number] OF REPORT CLClinical uobp2099-48-62X21:49:00Y.[id number]- 0053AVAvailable for patient sntfALTSYCNQMQXCVM8517-99-81Q73:36:52 [facility] 14:56:00 [id number]SL 01YJyyuEOteQ89cc+Ihww8WbnoxA6OM350kKRI 3016-23-67E71:56:644895-6136 [facility] [place] [address] PATIENT NAME: TALIB MARKS ADMIT DATE: 08/22/22ACCOUNT NO: [id number] ROOM NO: Y.O20 AGE: 67 REPORT TYPE: OPERATIVE REPORT SEX: F ADMITTING PHYSICIAN:Maverick Pringle MD ATTENDING PHYSICIAN:Maverick Pringle MD OPERATION DATE: 08/22/2022 PREOPERATIVE DIAGNOSES:1. Right shoulder pain.2. Right shoulder proximal humerus fracture malunion.3. Right shoulder rotator cuff tear.4. Right shoulder osteoarthritis. POSTOPERATIVE DIAGNOSIS:1. Right shoulder pain.2. Right shoulder proximal humerus fracture malunion.3. Right shoulder rotator cuff tear.4. Right shoulder osteoarthritis. PROCEDURE: Right reverse shoulder arthroplasty for proximal humerus malunion, CPT code 77076, modifier 22. SURGEON: Maverick Pringle M.D. SPECK DYER: Dave Vick M.D. Brennan was medically necessary for the procedure and retraction of vital neurovascular structures throughout this case including protection of the axillary artery, nerve as well as structures of the brachial plexus through this complex reconstructive procedure with abnormal anatomy. Additionally, this is not a teaching hospital. There were no residents available for assistance. SECOND SPECK DYER: Hany Cardona D.O. ANESTHESIA: General plus interscalene block. IV FLUIDS: Per Anesthesia. ESTIMATED BLOOD LOSS: 300 mL. COUNTS: Recorded as correct. COMPLICATIONS: There were no apparent complications. SPECIMENS: None. DRAINS: None. PATIENT NAME: TALIB MARKS FINDINGS: Osteoporotic bone with a varus malunion of the proximal humerus in acceptable reconstruction of the joint after shoulder arthroplasty. IMPLANTS USED: A 25 x 6 mm lateral baseplate with peripheral superior and inferior screw as well as a 36+0 glenosphere, and on the humeral side a DJO 10 x108 mm small shell humeral component with a 36+4 neutral polyethylene liner. INDICATIONS FOR PROCEDURE: Talib is a 67-year-old female with ongoing right shoulder pain. She had a proximal humerus fracture that healed into a varus malunion. She had attempted six or more months of physical therapy and was still having persistent pain and dysfunction that was affecting her quality of life and her ability to perform activities of daily living. After all risks, benefits and alternatives of surgery were discussed with the patient. She elected to proceed. DESCRIPTION OF PROCEDURE: Talib was brought back to the operating room table and placed under general endotracheal anesthesia in supine position on well-padded beach chair positioner. She was then sat up into beach chair position making sure head and neck were secured midline neutral. Right arm and shoulder were prepped and draped in sterile standard fashion. A timeout was called and site, procedure, and patient were confirmed by all in the room who agreed. Preoperative antibiotics were administered by anesthesia. A standard deltopectoral incision was made over the anterolateral aspect of the patient's right shoulder, extending anterolaterally a full thickness subcutaneous flaps were opened with Bovie electrocautery. The fat stripe was found at the inferiorborder of the clavicle. The cephalic vein was identified and retracted mediallyoff the anterior rolled edge of the deltoid with meticulous hemostasis. The clavipectoral fascia was opened into the lateral border of the conjoined tendon,subcoracoid, subacromial, and subdeltoid spaces were then swept of loose debris and adhesions. A Castillo retractor was placed. We could begin to see the varus nature of the malunion in this position. We then tenodesed the long head of thebiceps to the superior border of the pectoralis major with a #2 Ethibond suture and then tenotomized it proximally and used as a guide to open the rotator cuff interval. A subscapularis peel was performed and the humeral capsule of the glenohumeral joint was released off the humerus from anteriorly to the 6 o'clockposition. The shoulder was then dislocated. A head cut was made at the medial border with an extramedullary cutting guide at the medial border of the supraspinatus insertion. This removed much less head bone. Given the malunion in this particular situation, anterior, posterior and inferior osteophytes were removed. We elected to prepare the humerus first to protect the bone in this particular malunion procedure. Reamers were used to center our implant over our canal distally. We reamed up to a size 12 and then we started broaching. We broached to a size 10 and 30 degrees of retroversion. We found this to be acceptable. We then used the reamer and attached to the broach to ream the metaphysis for this inlay prosthesis. Any additional bone anteriorly, inferiorly or posteriorly was resected to prevent impingement. We left the trial in while we began to then approach to the glenoid. We then abducted, externally rotated and extended the arm. The subscapularis was tagged for later repair at the end of the procedure. Extensive capsular release and 360 labral release was performed on the glenoid side. There was extensive capsular adhesions and scarring that we had to take our time to resectand to dissect the axillary nerve off of the extensive adhesions in order to geta better arc of motion in the shoulder. This capsular resection as well as bone PATIENT NAME: TALIB MARKS preparation on the humeral side that was extensive given the nature of the malunion took greater than 45 minutes relative to a standard reverse shoulder arthroplasty procedure, necessitating a 22 modifier. We then began drilling forour bicortical drill bit in 10 degrees of inferior tilt for DJO glenoid component. We placed a bicortical drill followed by a tap. The tap did not receive good purchase bicortically. So at that point, we elected to be along the DJO implant on the glenoid side and instead we switched to a 28 implant. Wedrilled a center bicortical pin followed by a boss reamer. At this point, therewas a posterior fracture of the glenoid. Intraoperatively, we continued to prepare this posted implant in the center of the glenoid. We drilled our central screw. We placed our +6 lateralized implant with the locking screws superiorly and inferiorly. We got excellent purchase with a 6.5 mm central screw and then we were able to get purchase of the bone with our 2 locking screws superiorly and inferiorly. Anterior and inferior screws could not be placed due to poor bone stock. We then placed a 36 neutral glenosphere onto theMorse taper and fully locked the set screw. We turned our attention back to the humerus. We began trialing from the previously placed trial broach and implant. We elected a 36+4 neutral poly. The trial parts were removed. The 4,#5 Ethibond sutures were placed through transosseous bone tunnels in the metaphysis. The final stem was impacted in 30 degrees of retroversion, followed by the poly, construct was reduced and taken through range of motion and found to be stable. We then repaired our subscap with a previously placed transosseous Ethibond sutures with an abduction and external rotation. Copious irrigation was used with pulse lavage. Two grams ofvancomycin powder placed. The periarticular injection was placed. Layered closure was performed. An Aquacel dressing was placed. The patient was placed in UltraSling and transferred off the operating table in stable condition without any apparent complications. Dictated By: Maverick Pringle MD Date Dictated: 08/22/2022 14:56:18Date Transcribed: 08/22/2022 16:52:28[facility] [place]/Shoaib #: [id number] ID: [id number] by Maverick Pringle MD On 08/29/2022 06:40:02 AM at 0640 PATIENT NAME: TALIB MARKS [id number]:52:00Y.[id number] for patient hwqgYNNWYXJWNIJVJQ4589-92-07L17:41:30 [facility] 2022-08-10 15:32:00 [id number]+[id number] rHPEQZ4hsRp2Pl9KWsIahDcUGy3hzGqDx7P5XM [id number]:32:[id number] [place] [address] PATIENT NAME: TALIB MARKS ADMIT DATE: ACCOUNT NO: [id number] ROOM NO: AGE: 67 REPORT TYPE: ELECTROCARDIOGRAM SEX: F ADMITTING PHYSICIAN: ATTENDING PHYSICIAN:Maverick Pringle MD Order:[id number] Reason : CLEARANCE FOR SURGERY HX. HTN HEART ATTACK Test Date/Time Stamp:MonAug 10 2022 15:32:46Blood Pressure : / mmHGVent. Rate : 088 BPM Atrial Rate : 088 BPM P-R Int : 140 ms QRS Dur : 092 ms QT Int : 386 ms P-R-T Axes : 065 065 056 degrees QTc Int : 467 ms Normal sinus rhythmNormal ECGNo previous ECGs availableConfirmed by HALEY OSBORN MD ([id number]) on 08/12/2022 8:39:57 PM Referred By: Maverick Pringle Confirmed by:HALEY OSBORN MD PATIENT NAME: TALIB MARKS .[facility]20 [id number] for patient [id number]:40:18 [facility] 2021-[facility] 12:57:00 [id number] GjnHf8VK4zgh9q9mPUodV9CJFfiJz+juiVPPNx [id number]:57:[id number] [facility] [place] [address] PATIENT NAME: TALIB MARKS ADMIT DATE: 12/27/21ACCOUNT NO: [id number] ROOM NO: AGE: 66 REPORT TYPE: CONSULTATION REPORT SEX: F ADMITTING PHYSICIAN: ATTENDING PHYSICIAN:Tyron Dotson MD CONSULTATION DATE: 12/27/2021 CONSULTING PHYSICIAN: Tyron Dotson MD EMERGENCY ROOM CONSULTATION HISTORY OF PRESENT ILLNESS: She has a chief complaint of right shoulder pain. She is right-handed. She was at a concert on Monday and fell onto her back andhit her head and her right shoulder. She was seen in an urgent care and givensome Tylenol with Codeine that are causing her nausea and vomiting. She reportsa pain of 8/10. PAST MEDICAL HISTORY: Includes diabetes. PAST SURGICAL HISTORY: She has had surgery on the right elbow. SOCIAL HISTORY: She is a nonsmoker. CURRENT MEDICATIONS: Reviewed and documented in the EMR. PHYSICAL EXAMINATION:GENERAL: She is alert and in no acute distress.HEAD: Normocephalic and atraumatic.HEART: Regular rate and rhythm.LUNGS: Clear. No signs of respiratory distress.ABDOMEN: Soft.NEUROLOGIC: She is neurovascularly intact in bilateral upper extremities. Shedoes have ecchymosis noted in the right arm. She is tender in the proximalright arm. She has a palpable radial pulse on the right side. DIAGNOSTIC DATA: X-rays, two views, of the right shoulder were reviewed andshow a proximal humerus fracture. It appears to be a two-part that is impacted. There is also hardware noted in her right elbow. CLINICAL IMPRESSION: Closed proximal humerus fracture. PLAN: She is going to continue sling immobilization. I gave her a prescriptionfor Phenergan as well as tramadol for pain, and she is going to follow up withme next Monday. I thought this was amenable to closed treatment, which Iexplained to her and her friend that was present with her today. I also warnedher that the bruising could get worse before it gets better and travel distallyfollowing gravity. PATIENT NAME: TALIB MARKS Dictated By: Tyron Dotson MD WT: CON:Y.AKASH/FELA/NTSDD: 12/28/2021 12:57:29DT: 12/28/2021 13:13:13Conf#: [id number]/DID#: [id number] Authenticated by Tyron Dotson MD On 12/31/2021 07:54:21 AM at 0754 PATIENT NAME: TALIB MARKS 3:13:00Y.[id number] for patient [id number]:54:53 [facility]
[2023-10-06] MEDS ORDERED: DIPHENHYDRAMINE 25 MG TAB/CAP ONE (12:31)
[2023-10-06] MEDS ORDERED: predniSONE 20 MG TAB ONE (12:31)
[2023-10-06] MEDS ORDERED: FAMOTIDINE 20 MG TAB ONE ×2 (12:31→12:37)
--- NOTE | 2023-10-06 13:37 | EDPHYS ---
Physician Documentation [facility] Name: Herminia Truong Age: 68 yrs Sex: Female : 1955 Arrival Date: 10/06/2023 Time: 12:13 Bed 15 Private MD: Jennifer Winchester C ED Physician Bam Lockett HPI: 10/05 12:24 This 68 yrs old Female presents to ER via Unassigned with complaints of Bee sting, rn mouth. 12:24 by a bee, in an unprovoked manner, In her cup. Onset: The symptoms/episode rn began/occurred just prior to arrival. Severity of symptoms: At their worst the symptoms were very mild, in the emergency department the symptoms are unchanged. The patient has not experienced similar symptoms in the past. Patient reports drinking coffee and there was a bee in her cup that she did not notice, stung her while in mouth and stinger still in the back of her mouth. Denies allergy to bee stings. Denies difficulty breathing or swelling. Historical: - Allergies: 12:27 Vancomycin; ap3 - PMHx: 12:27 broke right arm; Diabetes - IDDM; Hyperlipidemia; Hypertension; ap3 - PSHx: 12:27 Cholecystectomy; heart cath; hernia; hysterectomy; [place]; right elbow replacement; ap3 - Immunization history:: Client reports having NOT received the Covid vaccine. Flu vaccine is not up to date. - Social history:: Smoking status: Patient/guardian denies using tobacco, the patient reports quitting approximately 20 years ago. - Family history:: not pertinent. - Hospitalizations: : No recent hospitalization is reported. ROS: 12:24 Constitutional: Negative for fever, chills, and weight loss, ENT: Positive for bee rn sting in mouth Respiratory: Negative for shortness of breath, cough, wheezing, and pleuritic chest pain, Abdomen/GI: Negative for abdominal pain, nausea, vomiting, diarrhea, and constipation, Skin: Negative for injury, rash, and discoloration, Neuro: Negative for headache, weakness, numbness, tingling, and seizure, Exam: 12:24 Constitutional: This is a well developed, well nourished patient who is awake, alert, rn and in no acute distress. ENT: No oral swelling noted. No stridor. Single stinger located in the soft palate of mouth Cardiovascular: Regular rate and rhythm. No pulse deficits. Respiratory: No increased work of breathing, no retractions or nasal flaring. Vital Signs: 12:25 BP 147 / 118; Pulse 101; Resp 17; Temp 98.7; Pulse Ox 98% ; Weight 72.57 kg; ap3 13:28 BP 140 / 97; Pulse 80; Resp 18; Pulse Ox 99% on R/A; rs5 Procedures: 13:35 Foreign Body Removal: bee stinger, from the soft palate, by tweezers, The patient rn tolerated the removal well. MDM: 12:16 Patient medically screened. rn 13:35 Differential diagnosis: bee sting. Data reviewed: vital signs, nurses notes, and as a rn result, I will discharge patient. Counseling: I had a detailed discussion with the patient and/or guardian regarding the historical points, exam findings, and any diagnostic results supporting the discharge/admit diagnosis, the need for outpatient follow up, to return to the emergency department if symptoms worsen or persist or if there are any questions or concerns that arise at home. Response to treatment: the patient's symptoms have markedly improved after treatment, and as a result, I will discharge patient. Special discussion: I discussed with the patient/guardian in detail that at this point there is no indication for admission to the hospital. It is understood, however, that if the symptoms persist or worsen the patient needs to return immediately for re-evaluation. Administered Medications: 12:40 Drug: diphenhydrAMINE PO 50 mg PO once Route: PO; rs5 13:28 Follow up: Response: No adverse reaction rs5 12:40 Drug: predniSONE PO 60 mg PO once Route: PO; rs5 13:28 Follow up: Response: No adverse reaction rs5 12:40 Drug: Famotidine PO 20 mg PO once Route: PO; rs5 13:29 Follow up: Response: No adverse reaction rs5 Disposition Summary: 10/06/23 13:36 Discharge Ordered Notes: Location: Home rn Problem: new rn Symptoms: have improved rn Condition: Stable rn Diagnosis - Toxic effect of venom of bees, accidental (unintentional), initial encounter rn Followup: rn - With: Private Physician - When: As needed - Reason: Recheck today's complaints, Re-evaluation by your physician Discharge Instructions: - Discharge Summary Sheet rn - Bee, Wasp, or Hornet Sting, Adult rn Forms: - Medication Reconciliation Form rn - Thank You Letter rn - Antibiotic return agent airport - Prescription Opioid Use rn - Patient Portal Instructions rn - Leadership Thank You Letter rn Signatures: Bam Lockett MD MD rn Prokisch, Amanda, RN RN ap3 Main Arias RN RN rs5
--- NOTE | 2023-10-06 13:37 | ER ---
Nurse's Notes [facility] Name: Herminia Truong Age: 68 yrs Sex: Female : 1955 Arrival Date: 10/06/2023 Time: 12:13 Bed 15 Private MD: Jennifer Winchester C Diagnosis: Toxic effect of venom of bees, accidental (unintentional), initial encounter Presentation: 10/05 12:25 Chief complaint: Patient states: she was drinking her coffee this morning at approx ap3 1115 when she was stung by a bee that had gotten into her cup. patient states the sting is in her mouth. Coronavirus screen: At this time, the client does not indicate any symptoms associated with coronavirus-19. Ebola Screen: No symptoms or risks identified at this time. Initial Sepsis Screen: Does the patient meet any 2 criteria? HR > 90 bpm. Does the patient have a suspected source of infection? No. Patient's initial sepsis screen is negative. Risk Assessment: Do you want to hurt yourself or someone else? Patient reports no desire to harm self or others. Onset of symptoms was October 06, 2023 at 11:15. 12:25 Method Of Arrival: Ambulatory ap3 12:25 Acuity: VELVET 4 ap3 Triage Assessment: 12:28 General: Appears in no apparent distress. Behavior is calm, cooperative, appropriate ap3 for age. Pain: Complains of pain in soft palate. Neuro: Level of Consciousness is awake, alert, obeys commands, Oriented to person, place, time, situation. Cardiovascular: Patient's skin is warm and dry. Respiratory: Airway is patent Respiratory effort is even, unlabored, Respiratory pattern is regular, symmetrical. Historical: - Allergies: 12:27 Vancomycin; ap3 - PMHx: 12:27 broke right arm; Diabetes - IDDM; Hyperlipidemia; Hypertension; ap3 - PSHx: 12:27 Cholecystectomy; heart cath; hernia; hysterectomy; [place]; right elbow replacement; ap3 - Immunization history:: Client reports having NOT received the Covid vaccine. Flu vaccine is not up to date. - Social history:: Smoking status: Patient/guardian denies using tobacco, the patient reports quitting approximately 20 years ago. - Family history:: not pertinent. - Hospitalizations: : No recent hospitalization is reported. Screenin:20 [facility] ED Fall Risk Assessment (Adult) History of falling in the last 3 months, rs5 including since admission No falls in past 3 months (0 pts) Confusion or Disorientation No (0 pts) Intoxicated or Sedated No (0 pts) Impaired Gait No (0 pts) Mobility Assist Device Used No (0 pt) Altered Elimination No (0 pt) Score/Fall Risk Level 0 - 2 = Low Risk Oriented to surroundings, Maintained a safe environment. Abuse screen: Denies threats or abuse. Nutritional screening: No deficits noted. Tuberculosis screening: No symptoms or risk factors identified. Assessment: 12:41 Reassessment: To bedside for med adm, pt dropped 20 mg Famotidine tab on floor. rs5 12:41 Reassessment: to bedside with new famotidine tab for med adm. rs5 12:47 General: Appears in no apparent distress. uncomfortable, Behavior is calm, cooperative. rs5 Pain: Complains of pain in mouth Pain currently is 4 out of 10 on a pain scale. Quality of pain is described as aching, Is continuous. Neuro: Level of Consciousness is awake, alert, obeys commands, Oriented to person, place, time, situation. Cardiovascular: Patient's skin is warm and dry. Respiratory: Airway is patent Respiratory effort is even, unlabored, Respiratory pattern is regular, symmetrical. GI: Abdomen is round non-distended. : No signs and/or symptoms were reported regarding the genitourinary system. EENT: mild swelling and redness noted to inside of pt's left cheek. Derm: Skin is pink, warm \T\ dry. Musculoskeletal: Range of motion: intact in all extremities. 13:27 Reassessment: No changes from previously documented assessment. rs5 Vital Signs: 12:25 BP 147 / 118; Pulse 101; Resp 17; Temp 98.7; Pulse Ox 98% ; Weight 72.57 kg; ap3 13:28 BP 140 / 97; Pulse 80; Resp 18; Pulse Ox 99% on R/A; rs5 ED Course: 12:15 Patient arrived in ED. mr 12:16 Jennifer Winchester MD is Private Physician. mr 12:16 Bam Lockett MD is Attending Physician. rn 12:20 Patient has correct armband on for positive identification. Placed in gown. Bed in low rs5 position. Call light in reach. Side rails up X2. 12:20 No provider procedures requiring assistance completed. rs5 12:27 Main Arias, RN is Primary Nurse. rs5 12:27 Triage completed. ap3 12:28 Arm band placed on right wrist. ap3 13:40 Patient did not have IV access during this emergency room visit. rs5 Administered Medications: 12:40 Drug: diphenhydrAMINE PO 50 mg PO once Route: PO; rs5 13:28 Follow up: Response: No adverse reaction rs5 12:40 Drug: predniSONE PO 60 mg PO once Route: PO; rs5 13:28 Follow up: Response: No adverse reaction rs5 12:40 Drug: Famotidine PO 20 mg PO once Route: PO; rs5 13:29 Follow up: Response: No adverse reaction rs5 Medication: 12:47 VIS not applicable for this client. rs5 Outcome: 13:36 Discharge ordered by . rn 13:40 Discharged to home ambulatory, rs5 13:40 Condition: stable 13:40 Discharge instructions given to patient, family, Instructed on discharge instructions, follow up and referral plans. 13:47 Patient left the ED. rs5 Signatures: Jayshree Ontiveros, Reg Reg Bam Crump MD MD rn Prokisch, Amanda, RN RN ap3 Main Arias, RN RN rs5
[2023-10-06 13:54] VITALS: BP 140/97; TEMP 98.7; O2SAT 99
--- NOTE | 2023-10-09 13:47 | EKG ---
Test Date: 2023-10-06 Test Time: 12:38:29 Corporate Travel Consultant: KOURTNEY MEASUREMENT RESULTS: Intervals: Rate: 68 MO: 172 QRSD: 100 QT: 408 QTc: 433 [place]: P: 17 MO: 172 QRS: -51 T: 43 INTERPRETIVE STATEMENTS: Normal sinus rhythm Left axis deviation Low voltage QRS Abnormal ECG Compared to ECG 03/23/2022 21:24:24 Left-axis deviation now present Low QRS voltage now present ST (T wave) deviation no longer present Electronically Signed On 10-09-23 13:38:31 CDT by James Chan
== END 2023-10-06 13:47 | disposition home or self-care (01) ==
LOC: ER 12:13
DX: T63.441A Toxic effect of venom of bees, accidental (unintentional), initial encounter (principal); T18.0XXA Foreign body in mouth, initial encounter; Z88.3 Allergy status to other anti-infective agents
CPT/HCPCS: 99283; J7512; 93005

== ENCOUNTER 2024-03-18 16:37 | Inpatient (IN) | payer OTHER ==
[2024-03-18] MEDS ORDERED: ONDANSETRON 4 MG/2 ML VIAL ONE ×2 (16:44→20:23)
[2024-03-18] MEDS ORDERED: MORPHINE 4 MG/ML SYR ONE (16:45)
--- OUTSIDE RECORDS SUMMARY | 2024-03-18 16:45 | XMS REPORT | Continuity of Care Document ---
Author Name Unknown Address [address] [facility] [address] [place] [address] [facility] Address [address] [facility]. 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 [place] [employer] Name Role Phone FLAKITA GRAY Padilla Primary Care Physician FAUZIA Benedict Attending Clinician Unavailable JASWINDER HA Attending Clinician UnavailTAMY Antonio Attending Clinician UnavailTAMY Lane Attending Clinician UnavailJackie Hampton PA-C Attending Clinician [phone] Tamy Lujan MD Attending Clinician [phone] Jaswinder Ha MD Attending Clinician [phone] Doctor Unassigned, [place] Attending Clinician U JESUSITA Amador Attending Clinician UnavailJesusita Duran DO Attending Clinician [phone] Curtis Pandey MD Attending Clinician [phone] Ernesto Attending Clinician Unavail able Patricia Attending Clinician UnavailMaverick Maloney Attending Clinician Unavailkaitlyn Roberts, [facility] Attending Clinician UnavailCURTIS Silva Attending Clinician Unavailab Tyron Patino Attending Clinician [phone] Tyron Dotson Attending Clinician Unavailable SAMEER GRAY Attending Clinician Unavail able SAMEER GRAY Attending Clinician Unavail able Sameer Gray MD Attending Clinician RUT MYLES Attending Clinician Unavaila BHUMI Jamil Attending Clinician Unavailable GONZALEZ MCMANUS Attending Clinician Unavailable ANUPAM REBOLLAR Attending Clinician Unavailable JESUSITA OWEN Admitting Clinician Unavailab sandra PROCTOR_Pino_Tyler Admitting Clinician Unavail able ESTHELA_Mauri_Mitch Admitting Clinician Unavailab Maverick Baires Admitting Clinician Unavailabl Tyron Costello Admitting Clinician Unavailable SAMEER GRAY Admitting Clinician Unavail able CURTIS PANDEY Admitting Clinician Unavailab le Payers Payer Name Policy Type Policy Number Effective Date Expirati on Date Source MEDICARE PART A \\T\\ B [id number] 2009 00:00:00 [id number] 2007 00:00:00 [id number] 2024 00:00:00 [place] [employer] [id number] 2009 00:00:00 () [id number] 2007 00:00:00 CGS (MEDICARE [facility]) [id number] 2009 00:00:00 Problems Condition Name Condition Details Condition Category Status Onset Date Resolution Date Last Treatment Date Treating Clinician Comments Source Closed fracture of upper end of humerus Closed Fracture of Upper End of Humerus Problem Active 08-03 00:00: 00 [facility] Closed fracture of proximal right humerus Closed Fracture of Proximal Right Humerus Problem Active 04-01 00:00: 00 [facility] Dietary B12 deficiency Dietary B12 deficiency Disease Active 03-22 00:00: 00 [facility] Mixed hyperlipid emia Mixed hyperlipid emia Disease Active 12-12 00:00: 00 [facility] 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 Disease Active 2014-07 00:00: 00 [facility] Depression Depression Disease Active 2014-07 00:00: 00 [facility] Sinusitis Sinusitis Disease Active 01-22 00:00: 00 [facility] Diabetic arthropath y Diabetic arthropath y Disease Active 09-21 00:00: 00 [facility] Adhesive capsulitis of shoulder Adhesive capsulitis of shoulder Disease Active 09-21 00:00: 00 [facility] Osteoarthr itis, multiple sites Osteoarthr itis, multiple sites Disease Active 09-21 00:00: 00 [facility] Chronic pain syndrome Chronic pain syndrome Disease Active 09-21 00:00: 00 [facility] Arthritis Arthritis Disease Active 07-24 00:00: 00 [facility] Allergic rhinitis Allergic rhinitis Disease Active 07-24 00:00: 00 [facility] Essential hypertensi on, benign Essential hypertensi on, benign Disease Active 10-04 00:00: 00 [facility] Vitamin D deficiency Vitamin D deficiency Disease Active 10-04 00:00: 00 Overview: Formattin g of this note might be different from the original. 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 [facility] Pure hyperchole sterolemia Pure hyperchole sterolemia Disease Resolve d 10-04 00:00: 00 2017-12-12 00:00:00 2022-01-23 00:20:36 [facility] Type 1 diabetes mellitus with multiple complicati ons Type 1 diabetes mellitus with multiple complicati ons Disease Resolve d 10-04 00:00: 00 2015-05-28 00:00:00 2022-01-23 00:20:36 [facility] Diabetic neuropathy Diabetic neuropathy Disease Resolve d 11-02 00:00: 00 2015-05-06 00:00:00 2015-05-06 08:40:55 [facility] Diabetes mellitus type 2 without retinopath y Diabetes mellitus type 2 without retinopath y Disease Resolve d 16 00:00: 00 2015-04-20 00:00:00 2015-04-20 14:48:55 [facility] Type II or unspecifie d type diabetes mellitus with ophthalmic manifestat ions, not stated as uncontroll ed(250.50) Type II or unspecifie d type diabetes mellitus with ophthalmic manifestat ions, not stated as uncontroll ed(250.50) Disease Resolve d 12-21 00:00: 00 2011-10-05 00:00:00 2011-10-05 14:43:09 [facility] Type I (juvenile type) diabetes mellitus with ophthalmic manifestat ions, not stated as uncontroll ed(250.51) Type I (juvenile type) diabetes mellitus with ophthalmic manifestat ions, not stated as uncontroll ed(250.51) Disease Resolve d 03-23 00:00: 00 2011-10-05 00:00:00 2011-10-05 14:43:17 [facility] Uncontroll ed type 1 diabetes mellitus with ophthalmic manifestat ions Uncontroll ed type 1 diabetes mellitus with ophthalmic manifestat ions Disease Resolve d 12-23 00:00: 00 2011-10-05 00:00:00 2022-01-23 00:15:15 [facility] Type II or unspecifie d type diabetes mellitus with ophthalmic manifestat ions, not stated as uncontroll ed(250.50) Type II or unspecifie d type diabetes mellitus with ophthalmic manifestat ions, not stated as uncontroll ed(250.50) Disease Resolve d 11-06 00:00: 00 2010-03-23 00:00:00 2010-03-23 14:36:10 [facility] Type II or unspecifie d type diabetes mellitus without mention of complicati on, uncontroll ed Type II or unspecifie d type diabetes mellitus without mention of complicati on, uncontroll ed Disease Resolve d 2007-07 00:00: 00 2008-07-08 00:00:00 2008-07-08 13:15:53 [facility] Allergies, Adverse Reactions, Alerts Allergy Name Allergy Type Status Severity Reaction(s) Onset Date Inactive Date Treating Clinician Comments Source COVID-19 (SARS-CO V-2) VACCINE, AD26 DRUG INGREDI Active Rash 07-16 00:00: 00 [facility] Covid-19 (Sars-Co v-2) Vaccine, Ad26 Propensi ty to adverse reaction s Active Rash 07-16 00:00: 00 [facility] vancomyc in DA Active SV ANAPHYLAXIS 12-27 00:00: 00 [facility] VANCOMYC IN DRUG INGREDI Active High Unknown-Cmnt 2007-07 00:00: 00 [facility] Vancomyc in Propensi ty to adverse reaction s Active Unknown - See comments 2007-07 00:00: 00 paralysis [facility] Social History Social Habit Start Date Stop Date Quantity Comments Source History SDOH Alcohol Frequency [facility] History SDOH Alcohol Std Drinks [facility] History SDOH Alcohol Binge [facility] Sexual orientation [facility] History of Social function 2024-03-07 00:00:00 2024-03-07 00:00:00 [facility] Alcoholic beverage intake 2024-03-07 00:00:00 2024-03-07 00:00:00 Current drinker of alcohol (finding) [facility] Tobacco use and exposure 2024-03-07 00:00:00 2024-03-07 00:00:00 Smokeless tobacco non-user [facility] Alcohol intake 2023-08-21 00:00:00 2023-08-21 00:00:00 Current drinker of alcohol (finding) [facility] Exposure to SARS-CoV-2 (event) 2022-11-04 00:00:00 2022-11-14 12:16:00 Not sure [facility] Cigarettes smoked current (pack per day) - Reported 2022-03-21 00:00:00 2022-03-21 00:00:00 [facility] Alcohol Comment 2012-09-21 00:00:00 2012-09-21 00:00:00 occasional [facility] History of tobacco use 2005-07-24 00:00:00 Cigarette Smoker [facility] Sex assigned at 1955 00:00:00 1955 00:00:00 [facility] Smoking Status Start Date Stop Date Source Ex-smoker 2024-03-07 00:00:00 2024-03-07 00:00:00 [facility] Medications Ordered Medication Name Filled Medication Name Start Date Stop Date Current Medication? Ordering Clinician Indication Dosage Frequency Signature (SIG) Comments Components Source VITAMIN C 500 MG ORAL TAB 12-05 13:13: 35 Yes 1 daily [facility] MULTI-VITAM IN ORAL 12-05 13:13: 31 Yes 1 daily [facility] cholecalcif christina, vitamin D3, (VITAMIN D3) 1,000 unit tablet 12-05 13:07: 24 Yes 1000U Take 1 tablet by mouth in the morning. [facility] diclofenac dodium (VOLTAREN) 1 % gel 12-05 00:00: 00 Yes [id number] 4g Apply 4 g to area(s) as needed for Pain. [facility] insulin degludec 200 unit/mL (3 mL) InPn 12-05 00:00: 00 Yes [id number] 26U inject 26 Units under the skin in the morning. [facility] Dexlansopra zole (DEXILANT) 60 mg capsule 08-21 13:17: 57 08-21 00:00 :00 No Take by mouth. [facility] Dexlansopra zole (DEXILANT) 60 mg capsule 08-21 00:00: 00 Yes [id number] 60mg Take 1 capsule by mouth in the morning. TAke 1 capsule 4 times daily [facility] aliskiren (TEKTURNA) 150 mg tablet 08-21 00:00: 00 Yes [id number] 150mg Take 1 tablet by mouth in the morning. [facility] atorvastati n 40 mg tablet 08-21 00:00: 00 Yes [id number] 80mg Take 2 tablets by mouth at bedtime. [facility] diltiazem 120 mg tablet 08-21 00:00: 00 Yes [id number] 120mg Take 1 tablet by mouth in the morning and 1 tablet at noon and 1 tablet in the evening. [facility] hydroCHLORO thiazide 25 mg tablet 08-21 00:00: 00 Yes [id number] 25mg Take 1 tablet by mouth in the morning. [facility] insulin lispro (HUMALOG KWIKPEN INSULIN) 100 unit/mL pen injector 08-21 00:00: 00 Yes [id number] inject under the skin 3 (three) times daily before meals, est 40 units/day. [facility] insulin degludec 200 unit/mL (3 mL) InPn 08-21 00:00: 00 12-05 00:00 :00 No [id number] 26U inject 26 Units under the skin in the morning. [facility] codeine-gua ifenesin (ROBITUSSIN AC) 10-100 mg/5 mL oral solution 10 mL 07-16 16:00: 00 07-16 16:15 :00 No 10mL 10 mL, Oral, ONCE, 1 dose, On 07/16/23 at 1000, LAURIE [facility] albuterol 90 mcg/actuati on inhaler 07-16 00:00: 00 Yes [id number] 2{puff} Inhale 2 Puffs every 4 (four) hours as needed for Wheezing or Shortness of Breath. [facility] bromphenira mine-pseudo ephedrine-D M (BROMFED DM) 2-30-10 mg/5 mL syrup 07-16 00:00: 00 Yes [id number] 5mL Take 5 mL by mouth 4 (four) times daily as needed for Cold symptoms or Cough. [facility] VITAMIN C 500 MG ORAL TAB 2022-07 13:31: 37 Yes 1 daily [facility] MULTI-VITAM IN ORAL 2022-07 13:31: 36 Yes 1 daily [facility] ASPIRIN 81 MG ORAL CHEW 2022-07 13:31: 33 Yes once daily [facility] cholecalcif christina, vitamin D3, (VITAMIN D3) 1,000 unit tablet 2022-07 13:31: 30 Yes 1000U Take 1 tablet by mouth in the morning. [facility] CYANOCOBALA MIN, VITAMIN B-12, (VITAMIN B-12 ORAL) 2022-07 13:31: 28 Yes Take by mouth daily. [facility] Dexlansopra zole (DEXILANT) 60 mg capsule 2022-07 13:31: 16 Yes Take by mouth. [facility] cholecalcif christina, vitamin D3, (VITAMIN D3) 1,000 unit tablet 02-15 13:25: 45 Yes 1000U Take 1 tablet by mouth in the morning. [facility] CYANOCOBALA MIN, VITAMIN B-12, (VITAMIN B-12 ORAL) 02-15 13:25: 45 Yes Take by mouth daily. [facility] aliskiren (TEKTURNA) 150 mg tablet 02-15 00:00: 00 08-21 00:00 :00 No [id number] 150mg Take 1 tablet by mouth in the morning. [facility] ASPIRIN 81 MG ORAL CHEW 11-14 13:03: 27 Yes once daily [facility] cholecalcif christina, vitamin D3, (VITAMIN D3) 1,000 unit tablet 11-14 13:03: 25 Yes 1000U Take 1,000 Units by mouth daily. [facility] CYANOCOBALA MIN, VITAMIN B-12, (VITAMIN B-12 ORAL) 11-14 13:03: 22 Yes Take by mouth daily. [facility] atorvastati n 40 mg tablet 2- 00:00: 00 08-21 00:00 :00 No [id number] 80mg Take 2 tablets by mouth at bedtime. [facility] insulin lispro (HUMALOG KWIKPEN INSULIN) 100 unit/mL pen injector 2021-07 00:00: 00 Yes [id number] inject under the skin 3 (three) times daily before meals, est 40 units/day. [facility] hydroCHLORO thiazide 25 mg tablet 2021-07 00:00: 00 08-21 00:00 :00 No [id number] 25mg Take 1 tablet by mouth in the morning. [facility] insulin degludec 200 unit/mL (3 mL) InPn 2021-07 00:00: 00 08-21 00:00 :00 No [id number] 26U inject 26 Units under the skin daily. [facility] insulin lispro (HUMALOG KWIKPEN INSULIN) 100 unit/mL pen injector 2021-07 00:00: 00 08-21 00:00 :00 No [id number] inject under the skin 3 (three) times daily before meals, est 40 units/day. [facility] diltiazem 120 mg tablet 2021-07 00:00: 00 08-21 00:00 :00 No [id number] 120mg Take 1 tablet by mouth in the morning and 1 tablet at noon and 1 tablet in the evening. [facility] SERTraline 100 mg tablet 2021-07 00:00: 00 05-18 00:00 :00 No [id number] 100mg Take 1 tablet by mouth in the morning. [facility] atorvastati n 40 mg tablet 2021-07 00:00: 00 08-15 00:00 :00 No [id number] 40mg Take 1 tablet by mouth at bedtime. [facility] glucagon 1 mg/0.2 mL AtIn 2021-07 00:00: 00 05-13 04:59 :00 No [id number] 1mg inject 1 mg under the skin ONCE PRN for Other for up to 1 dose. [facility] Diclofenac Sodium (VOLTAREN) 1 % gel 03-21 00:00: 00 12-05 00:00 :00 No [id number] Apply to area(s) as needed for Pain (scale 7-10) or Pain (scale 4-6). [facility] traMADoL 50 mg tablet 03-21 00:00: 00 05-18 00:00 :00 No [id number] 50mg Take 1 tablet by mouth in the morning and 1 tablet at noon and 1 tablet in the evening. Indication s: chronic pain [facility] methocarbam oL 500 mg tablet 03-21 00:00: 00 06-20 05:59 :00 No [id number] 500mg Take 1 tablet by mouth in the morning and 1 tablet in the evening. Do all this for 90 days. [facility] Diclofenac Epolamine (FLECTOR) 1.3 % patch 03-21 00:00: 00 06-20 05:59 :00 No [id number] Apply to skin 2 (two) times daily as needed for Pain (scale 7-10) or Pain (scale 4-6) for up to 90 days. [facility] aliskiren (TEKTURNA) 150 mg tablet 8-03 00:00: 00 02-15 00:00 :00 No [id number] 150mg Take 1 tablet by mouth in the morning. [facility] traMADoL 50 mg tablet 7- 00:00: 00 03-21 00:00 :00 No [id number] 50mg Take 1 tablet by mouth in the morning and 1 tablet at noon and 1 tablet in the evening. Indication s: chronic pain [facility] methocarbam oL (ROBAXIN) 500 mg tablet 7-19 00:00: 00 05-18 00:00 :00 No [id number] 500mg Take 1 tablet by mouth 2 (two) times daily as needed for Pain (scale 4-6) or Pain (scale 7-10). [facility] methocarbam oL (ROBAXIN) 500 mg tablet 2-08 00:00: 00 03-21 00:00 :00 No [id number] 750mg Take 1.5 tablets by mouth 2 (two) times daily. [facility] insulin degludec 200 unit/mL (3 mL) InPn 2021-1 2-13 00:00: 00 05-12 00:00 :00 No [id number] 26U inject 26 Units under the skin daily. [facility] atorvastati n 40 mg tablet 2020-07 00:00: 00 05-12 00:00 :00 No [id number] 40mg Take 1 tablet by mouth at bedtime. [facility] hydroCHLORO thiazide 25 mg tablet 2020-07 00:00: 00 05-12 00:00 :00 No [id number] 25mg Take 1 tablet by mouth daily. [facility] SERTraline 100 mg tablet 2020-07 00:00: 00 05-12 00:00 :00 No [id number] 100mg Take 1 tablet by mouth daily. [facility] Blood-Gluco se Transmitter (DEXCOM G6 TRANSMITTER ) Irma 2020-07 00:00: 00 Yes Change every 90 days [facility] Blood-Gluco se Sensor (DEXCOM G6 SENSOR) Irma 2020-07 00:00: 00 Yes Change sensor every 10 days [facility] Blood-Gluco se Meter,Jeff raedominic (DEXCOM G6 KITCHEN STEWARD/STEWARDESS) [facility] 2020-07 00:00: 00 05-18 00:00 :00 No Use as directed [facility] VITAMIN C 500 MG ORAL TAB 2020-07 13:56: 05 Yes 1 daily [facility] CYANOCOBALA MIN, VITAMIN B-12, (VITAMIN B-12 ORAL) 2020-07 13:56: 05 Yes Take by mouth daily. [facility] ASPIRIN 81 MG ORAL CHEW 2020-07 13:56: 05 Yes once daily [facility] cholecalcif christina, vitamin D3, (VITAMIN D3) 1,000 unit tablet 2020-07 13:56: 05 Yes 1000U Take 1 tablet by mouth in the morning. [facility] Dexlansopra zole (DEXILANT) 60 mg capsule 2020-07 13:56: 05 Yes Take by mouth. [facility] insulin lispro (HUMALOG KWIKPEN INSULIN) 100 unit/mL pen injector 03-22 00:00: 00 05-12 00:00 :00 No [id number] inject under the skin 3 (three) times daily before meals, est 40 units/day. [facility] glucagon 1 mg/0.2 mL AtIn 03-22 00:00: 00 05-12 00:00 :00 No [id number] 1mg inject 1 mg under the skin as needed for Other. [facility] DICLOFENAC EPOLAMINE 1.3 % patch 03-09 00:00: 00 03-21 00:00 :00 No [id number] APPLY ONE PATCH TO AFFECTED AREA TWICE A DAY NEEDED FOR PAIN (SCALE 1-3) OR PAIN (SCALE 4-6) (DO NOT APPLY TO DAMAGED SKIN, DO NOT WEAR WHILE BATHING OR SHOWERING, WASH HANDS AFTER HANDLING) [facility] DICLOFENAC SODIUM 1 % gel 03-09 00:00: 00 03-21 00:00 :00 No [id number] APPLY GEL TO AFFECTED AREA(S) EVERY 6 HOURS NEEDED FOR PAIN (SCALE 4-6) OR PAIN (SCALE 7-10) -(USE THE ENCLOSED DOSING CARD AND PATIENT INSTRUCTIO N SHEET FOR PROPER DOSING GUIDANCE OR DIRECTED BY YOUR DOCTOR. TOTAL AMOUNT USED EACH DAY SHOULD NOT EXCEED 32 GRAMS) [facility] Insulin [place], Disposable, (BD ULTRAFINE III MINI PEN) 31 gauge x 3/16" Ndle 01-15 00:00: 00 Yes [id number] 4 (four) times daily. [facility] Ins[facility] [place], Disposable, (BD ULTRAFINE III MINI PEN) 31 gauge x 3/16" Ndle 01-15 00:00: 00 Yes [id number] 4 (four) times daily. [facility] diltiazem 120 mg tablet 01-15 00:00: 00 05-12 00:00 :00 No [id number] 120mg Take 1 tablet by mouth 3 (three) times daily. [facility] HYDROcodone -acetaminop hen (NORCO) 5-325 mg tablet 3-11 00:00: 00 05-18 00:00 :00 No [id number] 1{tbl} Take 1 tablet by mouth 2 (two) times daily. [facility] codeine-gua ifenesin (CHERATUSSI N AC) 10-100 mg/5 mL solution 2-04 00:00: 00 03-21 00:00 :00 No [id number] 5mL Take 5 mL by mouth every 6 (six) hours as needed for Cough. [facility] acetone, urine, test (KETONE URINE TEST) strip 01-19 00:00: 00 Yes [id number] Use as directed as needed to check for ketones [facility] acetone, urine, test (KETONE URINE TEST) strip 01-19 00:00: 00 Yes [id number] Use as directed as needed to check for ketones [facility] acetaminoph en 300 mg-codeine 30 mg tablet [...] days. [facility] ondansetron [...] Comments Source Influenza Virus Vaccine Quad IM 3+ YRS 2016-06-06 00:00:00 Completed [facility] Influenza Virus Vaccine Quad IM 3+ YRS 2016-06-06 00:00:00 Completed [facility] Influenza Virus Vaccine Quad IM 3+ YRS 2016-06-06 00:00:00 Completed [facility] Influenza Virus Vaccine Quad IM 3+ YRS 2016-06-06 00:00:00 Completed [facility] Influenza Virus Vaccine Quad IM 3+ YRS 2016-06-06 00:00:00 Completed [facility] Influenza Virus Vaccine Quad IM 3+ YRS 2016-06-06 00:00:00 Completed [facility] Influenza Virus Vaccine Quad IM 3+ YRS 2016-06-06 00:00:00 Completed [facility] Influenza Virus Vaccine Quad IM 3+ YRS 2016-06-06 00:00:00 Completed [facility] Influenza Virus Vaccine Quad IM 3+ YRS 2016-06-06 00:00:00 Completed [facility] Influenza Virus Vaccine Quad IM 3+ YRS 2016-06-06 00:00:00 Completed [facility] Influenza Virus Vaccine Quad IM 3+ YRS 2016-06-06 00:00:00 Completed [facility] Influenza Virus Vaccine Quad IM 3+ YRS 2016-06-06 00:00:00 Completed [facility] Influenza Virus Vaccine Quad IM 3+ YRS 2016-06-06 00:00:00 Completed [facility] Influenza Virus Vaccine Quad IM 3+ YRS 2016-06-06 00:00:00 Completed [facility] Influenza Virus Vaccine (3+ yrs) 2013-04-25 00:00:00 Completed [facility] Influenza Virus Vaccine (3+ yrs) 2013-04-25 00:00:00 Completed [facility] Influenza Virus Vaccine (3+ yrs) 2013-04-25 00:00:00 Completed [facility] Influenza Virus Vaccine (3+ yrs) 2013-04-25 00:00:00 Completed [facility] Influenza Virus Vaccine (3+ yrs) 2013-04-25 00:00:00 Completed [facility] Influenza Virus Vaccine (3+ yrs) 2013-04-25 00:00:00 Completed [facility] Influenza Virus Vaccine (3+ yrs) 2013-04-25 00:00:00 Completed [facility] Influenza Virus Vaccine (3+ yrs) 2013-04-25 00:00:00 Completed [facility] Influenza Virus Vaccine (3+ yrs) 2013-04-25 00:00:00 Completed [facility] Influenza Virus Vaccine (3+ yrs) 2013-04-25 00:00:00 Completed [facility] Influenza Virus Vaccine (3+ yrs) 2013-04-25 00:00:00 Completed [facility] Influenza Virus Vaccine (3+ yrs) 2013-04-25 00:00:00 Completed [facility] Influenza Virus Vaccine (3+ yrs) 2013-04-25 00:00:00 Completed [facility] Influenza Virus Vaccine (3+ yrs) 2013-04-25 00:00:00 Completed [facility] Influenza Virus Vaccine 2012-07-24 00:00:00 Completed [facility] Influenza Virus Vaccine 2012-07-24 00:00:00 Completed [facility] Influenza Virus Vaccine 2012-07-24 00:00:00 Completed [facility] Influenza Virus Vaccine 2012-07-24 00:00:00 Completed [facility] Influenza Virus Vaccine 2012-07-24 00:00:00 Completed [facility] Influenza Virus Vaccine 2012-07-24 00:00:00 Completed [facility] Influenza Virus Vaccine 2012-07-24 00:00:00 Completed [facility] Influenza Virus Vaccine 2012-07-24 00:00:00 Completed [facility] Influenza Virus Vaccine 2012-07-24 00:00:00 Completed [facility] Influenza Virus Vaccine 2012-07-24 00:00:00 Completed [facility] Influenza Virus Vaccine 2012-07-24 00:00:00 Completed [facility] Influenza Virus Vaccine 2012-07-24 00:00:00 Completed [facility] Influenza Virus Vaccine 2012-07-24 00:00:00 [facility] [facility] Influenza Virus Vaccine 2012-07-24 00:00:00 Completed [facility] Influenza Virus Vaccine Unknown Completed [facility] Influenza Virus Vaccine (3+ yrs) Unknown Completed [facility] Influenza Virus Vaccine Quad IM 3+ YRS Unknown Completed [facility] Influenza Virus Vaccine Unknown Completed [facility] Influenza Virus Vaccine (3+ yrs) Unknown Completed [facility] Influenza Virus Vaccine Quad IM 3+ YRS Unknown Completed [facility] Influenza Virus Vaccine Unknown Completed [facility] Influenza Virus Vaccine (3+ yrs) Unknown Completed [facility] Influenza Virus Vaccine Quad IM 3+ YRS Unknown Completed [facility] Influenza Virus Vaccine Unknown Completed [facility] Influenza Virus Vaccine (3+ yrs) Unknown Completed [facility] Influenza Virus Vaccine Quad IM 3+ YRS Unknown Completed [facility] Influenza Virus Vaccine Unknown Completed [facility] Influenza Virus Vaccine (3+ yrs) Unknown Completed [facility] Influenza Virus Vaccine Quad IM 3+ YRS Unknown Completed [facility] Influenza Virus Vaccine Unknown Completed [facility] Influenza Virus Vaccine (3+ yrs) Unknown Completed [facility] Influenza Virus Vaccine Quad IM 3+ YRS Unknown Completed [facility] Influenza Virus Vaccine Unknown Completed [facility] Influenza Virus Vaccine (3+ yrs) Unknown Completed [facility] Influenza Virus Vaccine Quad IM 3+ YRS Unknown Completed [facility] Influenza Virus Vaccine Unknown Completed [facility] Influenza Virus Vaccine (3+ yrs) Unknown Completed [facility] Influenza Virus Vaccine Quad IM 3+ YRS Unknown Completed [facility] Influenza Virus Vaccine Unknown Completed [facility] Influenza Virus Vaccine (3+ yrs) Unknown Completed [facility] Influenza Virus Vaccine Quad IM 3+ YRS Unknown Completed [facility] Influenza Virus Vaccine Unknown Completed [facility] Influenza Virus Vaccine (3+ yrs) Unknown Completed [facility] Influenza Virus Vaccine Quad IM 3+ YRS Unknown Completed [facility] Influenza Virus Vaccine Unknown Completed [facility] Influenza Virus Vaccine (3+ yrs) Unknown Completed [facility] Influenza Virus Vaccine Quad IM 3+ YRS Unknown Completed [facility] Influenza Virus Vaccine Unknown Completed [facility] Influenza Virus Vaccine (3+ yrs) Unknown Completed [facility] Influenza Virus Vaccine Quad IM 3+ YRS Unknown Completed [facility] Influenza Virus Vaccine Unknown Completed [facility] Influenza Virus Vaccine (3+ yrs) Unknown Completed [facility] Influenza Virus Vaccine Quad IM 3+ YRS Unknown Completed [facility] Influenza Virus Vaccine Unknown Completed [facility] Influenza Virus Vaccine (3+ yrs) Unknown Completed [facility] Influenza Virus Vaccine Quad IM 3+ YRS Unknown Completed [facility] Influenza Virus Vaccine Unknown Completed [facility] Influenza Virus Vaccine (3+ yrs) Unknown Completed [facility] Influenza Virus Vaccine Quad IM 3+ YRS Unknown Completed [facility] Influenza Virus Vaccine Unknown Completed [facility] Influenza Virus Vaccine (3+ yrs) Unknown Completed [facility] Influenza Virus Vaccine Quad IM 3+ YRS Unknown Completed [facility] Influenza Virus Vaccine Unknown Completed [facility] Influenza Virus Vaccine (3+ yrs) Unknown Completed [facility] Influenza Virus Vaccine Quad IM 3+ YRS Unknown Completed [facility] Vital Signs Vital Name Observation Time Observation Value Comments S ource Body height 2024-03-07 17:57:00 154.9 cm [facility] Body weight 2024-03-07 17:57:00 70.716 kg [facility] BMI 2024-03-07 17:57:00 29.46 kg/m2 [facility] Systolic blood pressure 2023-12-06 17:38:00 130 mm[Hg] [facility] Diastolic blood pressure 2023-12-06 17:38:00 72 mm[Hg] [facility] Heart rate 2023-12-06 17:38:00 98 /min [facility] Body temperature 2023-12-06 17:38:00 36.5 Jeny [facility] Respiratory rate 2023-12-06 17:38:00 18 /min [facility] Body height 2023-12-06 17:38:00 154.9 cm [facility] Body weight 2023-12-06 17:38:00 74.526 kg [facility] BMI 2023-12-06 17:38:00 31.04 kg/m2 [facility] Oxygen saturation in Arterial blood by Pulse oximetry 2023-12-06 17:38:00 96 /min r/a [facility] Systolic blood pressure 2023-08-21 18:46:00 149 mm[Hg] [facility] Diastolic blood pressure 2023-08-21 18:46:00 81 mm[Hg] [facility] Heart rate 2023-08-21 18:46:00 95 /min [facility] Body temperature 2023-08-21 18:45:00 36.17 Jeny [facility] Respiratory rate 2023-08-21 18:45:00 21 /min [facility] Body height 2023-08-21 18:45:00 152.4 cm [facility] Body weight 2023-08-21 18:45:00 74.98 kg [facility] BMI 2023-08-21 18:45:00 32.28 kg/m2 [facility] Oxygen saturation in Arterial blood by Pulse oximetry 2023-08-21 18:45:00 98 /min [facility] Systolic blood pressure 2023-07-16 15:00:00 121 mm[Hg] [facility] Diastolic blood pressure 2023-07-16 15:00:00 69 mm[Hg] [facility] Heart rate 2023-07-16 15:00:00 103 /min [facility] Body temperature 2023-07-16 15:00:00 37.22 Jeny [facility] Respiratory rate 2023-07-16 15:00:00 16 /min [facility] Body height 2023-07-16 15:00:00 157.5 cm [facility] Body weight 2023-07-16 15:00:00 70.308 kg [facility] BMI 2023-07-16 15:00:00 28.35 kg/m2 [facility] Oxygen saturation in Arterial blood by Pulse oximetry 2023-07-16 15:00:00 97 /min [facility] Systolic blood pressure 2023-05-18 19:06:00 121 mm[Hg] [facility] Diastolic blood pressure 2023-05-18 19:06:00 77 mm[Hg] [facility] Heart rate 2023-05-18 19:06:00 93 /min [facility] Body temperature 2023-05-18 19:06:00 19.83 Jeny [facility] Respiratory rate 2023-05-18 19:06:00 18 /min [facility] Body height 2023-05-18 19:06:00 157.5 cm [facility] Body weight 2023-05-18 19:06:00 72.893 kg [facility] BMI 2023-05-18 19:06:00 29.39 kg/m2 [facility] Oxygen saturation in Arterial blood by Pulse oximetry 2023-05-18 19:06:00 100 /min r/a [facility] Systolic blood pressure 2023-02-15 18:24:00 109 mm[Hg] [facility] Diastolic blood pressure 2023-02-15 18:24:00 71 mm[Hg] [facility] Heart rate 2023-02-15 18:24:00 97 /min [facility] Body temperature 2023-02-15 18:24:00 36.5 Jeny [facility] Body height 2023-02-15 18:24:00 157.5 cm [facility] Body weight 2023-02-15 18:24:00 72.576 kg [facility] BMI 2023-02-15 18:24:00 29.26 kg/m2 [facility] Oxygen saturation in Arterial blood by Pulse oximetry 2023-02-15 18:24:00 97 /min [facility] Systolic blood pressure 2022-11-14 18:28:00 123 mm[Hg] [facility] Diastolic blood pressure 2022-11-14 18:28:00 61 mm[Hg] [facility] Heart rate 2022-11-14 18:28:00 96 /min [facility] Body temperature 2022-11-14 18:28:00 36 Jeny [facility] Respiratory rate 2022-11-14 18:28:00 18 /min [facility] Body height 2022-11-14 18:28:00 157.5 cm [facility] Body weight 2022-11-14 18:28:00 74.662 kg [facility] BMI 2022-11-14 18:28:00 30.11 kg/m2 [facility] Oxygen saturation in Arterial blood by Pulse oximetry 2022-11-14 18:28:00 97 /min [facility] Height 2022-10-19 00:00:00 62 [in_i] Azale a [...] Systolic blood pressure 2022-08-15 18:33:00 107 mm[Hg] [facility] Diastolic blood pressure 2022-08-15 18:33:00 68 mm[Hg] [facility] Heart rate 2022-08-15 18:33:00 88 [facility] 2022-08-15 18:33:00 36.61 Jeny [facility] Respiratory rate 2022-08-15 18:33:00 16 /min [facility] Body height 2022-08-15 18:33:00 154.9 cm [facility] Body weight 2022-08-15 18:33:00 74.208 kg [facility] BMI 2022-08-15 18:33:00 30.91 kg/m2 [facility] Oxygen saturation in Arterial blood by Pulse oximetry 2022-08-15 18:33:00 98 /min ra [facility] Height 2022-08-03 00:00:00 62 [in_i] [facility] BMI (Body Mass Index) 2022-08-03 00:00:00 30.2 kg/m2 [facility] Body Weight 2022-08-03 00:00:00 165 [lb_av] Aza petty [facility] Systolic blood pressure 2022-05-12 18:19:00 111 mm[Hg] [facility] Diastolic blood pressure 2022-05-12 18:19:00 68 mm[Hg] [facility] Heart rate 2022-05-12 18:19:00 90 /min [facility] Body temperature 2022-05-12 18:19:00 36.11 Jeny [facility] Respiratory rate 2022-05-12 18:19:00 16 /min [facility] Body height 2022-05-12 18:19:00 157.5 cm [facility] Body weight 2022-05-12 18:19:00 73.256 kg [facility] BMI 2022-05-12 18:19:00 29.54 kg/m2 [facility] Oxygen saturation in Arterial blood by Pulse oximetry 2022-05-12 18:19:00 96 /min [facility] Systolic blood pressure 2022-03-21 20:00:00 128 mm[Hg] [facility] Diastolic blood pressure 2022-03-21 20:00:00 61 mm[Hg] [facility] Heart rate 2022-03-21 20:00:00 97 /min [facility] Respiratory rate 2022-03-21 20:00:00 16 /min [facility] Body height 2022-03-21 20:00:00 157.5 cm [facility] Body weight 2022-03-21 20:00:00 72.576 kg [facility] BMI 2022-03-21 20:00:00 29.26 kg/m2 [facility] Oxygen saturation in Arterial blood by Pulse oximetry 2022-03-21 20:00:00 97 /min [facility] Procedures Procedure Date / Time Performed Performing Clinician Source POCT HEMOGLOBIN A1C TEST 2023-12-06 00:00:00 Jaswinder Ha [facility] POCT HEMOGLOBIN A1C TEST 2023-08-21 20:36:00 Jaswinder Ha [facility] XR CHEST 2 VW 2023-07-16 16:32:38 Jesusita Owen [facility] ASSIGNMENT OF BENEFITS 2023-07-16 16:13:38 Docto r Unassigned, [place] [facility] RAPID INFLUENZA A/B 2023-07-16 15:55:00 Marlena Owen ra [facility] COVID-19 (ID NOW RAPID TESTING) 2023-07-16 15:55:00 Jesusita Owen [facility] CONSENT/REFUSAL FOR DIAGNOSIS AND TREATMENT 2023-07-16 15:45:08 Doctor Unassigned, [place] [facility] CONSENT/REFUSAL FOR DIAGNOSIS AND TREATMENT 2023-05-18 18:42:37 Doctor Unassigned, [place] [facility] POCT HEMOGLOBIN A1C TEST 2023-05-18 00:00:00 Jaswinder Ha [facility] POCT HEMOGLOBIN A1C TEST 2023-02-15 18:43:00 Jaswinder Ha [facility] POCT HEMOGLOBIN A1C TEST 2022-11-14 18:31:00 Jaswinder Ha [facility] XR, shoulder, 2 or more view 2022-10-19 00:00:00 [facility] XR, shoulder, 2 or more view 2022-09-28 00:00:00 [facility] XR, shoulder, 2 or more view 2022-09-07 00:00:00 [facility] POCT HEMOGLOBIN A1C TEST 2022-08-15 19:14:00 Jaswinder Ha [facility] XR, shoulder, 2 or more view 2022-08-03 00:00:[address] [facility] [address], shoulder, w/o contrast 2022-08-03 00:00:00 [facility] XR, humerus, 2 or more view 2022-07-22 00:00:00 [facility] XR, shoulder, 2 or more view 2022-05-20 00:00:00 [facility] POCT HEMOGLOBIN A1C TEST 2022-05-12 19:09:00 Jaswinder Ha [facility] DME/SUPPLY JUSTIFICATION 2022-04-05 05:01:00 Doc tor Unassigned, [place] [facility] XR, humerus, 2 or more view 2022-04-01 [...] End Date/Time Encounter Type Admission Type Attending Clinicians Care Facility Care Department Encounter ID Source 2021-05-07 21:24:44 Emergency [facility] [id number] [facility] 2024-03-07 13:15:00 2024-03-07 14:07:44 Outpatient R TAMY LUJAN CRAIG [facility] [id number] [facility] 2024-03-07 13:15:00 2024-03-07 14:07:44 Office Visit Jackie Puga Craig [facility] 1..840.114 350.1.13.10 4.2.7.2.686 [id number] [facility] 2024-01-24 00:00:00 2024-01-24 16:16:13 Telephone Jaswinder Ha [facility] 1..840.114 350.1.13.10 4.2.7.2.686 [id number] [facility] 2023-11-03 00:00:00 2023-12-09 18:10:37 Patient Secure Msg Doctor Unassigned, [place] [facility] 1.2.840.114 350.1.13.10 4.2.7.2.686 [id number] [facility] 2023-12-06 13:30:00 2023-12-06 13:30:00 Office Visit Jaswinder Haan [facility] 1.2.840.114 350.1.13.10 4.2.7.2.686 [id number] [facility] 2023-12-06 13:30:00 2023-12-06 13:29:27 Outpatient R JASWINDER HA [facility] [id number] [facility] 2023-11-27 00:00:00 2023-11-28 12:48:13 Telephone Jaswinder Ha [facility] 1.2.840.114 350.1.13.10 4.2.7.2.686 [id number] [facility] 2023-10-12 00:00:00 2023-10-12 00:00:00 Telephone Jaswinder Ha [facility] 1.2.840.114 350.1.13.10 4.2.7.2.686 [id number] [facility] 2023-08-25 00:00:00 2023-08-25 00:00:00 Refill Jaswinder Ha [facility] 1.2.840.114 350.1.13.10 4.2.7.2.686 [id number] [facility] 2023-08-21 13:00:00 2023-08-21 13:32:03 Outpatient R JASWINDER HA [facility] [id number] [facility] 2023-08-21 13:00:00 2023-08-21 13:32:03 Office Visit Jaswinder Ha [facility] 1.2.840.114 350.1.13.10 4.2.7.2.686 [id number] [facility] 2023-07-16 09:53:00 2023-07-16 12:04:00 Emergency X JESUSITA OWEN [facility] ERT [id number] [facility] 2023-07-16 09:53:00 2023-07-16 12:04:00 Emergency Jesusita Owen [facility] 1.2.840.114 350.1.13.10 4.2.7.2.686 [id number] [facility] 2023-06-09 00:00:00 2023-06-09 00:00:00 Telephone Jaswinder Ha [facility] 1.2.840.114 350.1.13.10 4.2.7.2.686 [id number] [facility] 2023-05-18 14:00:00 2023-05-18 14:00:00 Office Visit Jaswinder Ha [facility] 1.2.840.114 350.1.13.10 4.2.7.2.686 [id number] [facility] 2023-05-18 14:00:00 2023-05-18 13:57:50 Outpatient R JASWINDER HA [facility] [id number] [facility] 2023-05-18 00:00:00 2023-05-18 00:00:00 Orders Only Doctor Unassigned, [place] [facility] 1.2.840.114 350.1.13.10 4.2.7.2.686 [id number] [facility] 2023-03-29 00:00:00 2023-03-29 00:00:00 Telephone Jaswinder Ha [facility] ELLEN 1.2.840.114 350.1.13.10 4.2.7.2.686 [id number] [facility] 2023-02-15 14:00:00 2023-02-15 15:52:38 Outpatient Margie HA JASWINDER [facility] [id number] [facility] 2023-02-15 14:00:00 2023-02-15 15:52:38 Office Visit Josue Hakoko Amaro [facility] 1.2.840.114 350.1.13.10 4.2.7.2.686 [id number] [facility] 2022-11-28 00:00:00 2022-11-28 00:00:00 Telephone Curtis Pandey [facility] 1.2.840.114 350.1.13.10 4.2.7.2.686 [id number] [facility] 2022-11-14 13:00:00 2022-11-14 14:11:50 Outpatient Margie JOSUE HAEN [facility] [id number] [facility] 2022-11-14 13:00:00 2022-11-14 14:11:50 Office Visit Leland Jaswinderkoko Amaro [facility] 1.2.840.114 350.1.13.10 4.2.7.2.686 [id number] [facility] 2022-10-19 00:00:00 2022-10-19 00:00:00 Maverick Pringle MD: [address] [place] [address] , Ph. [phone] [facility] [id number] [facility] 2022-09-30 00:00:00 2022-09-30 00:00:00 Outpatient FOG_Kai Scott A[facility] AOSM [id number] [facility] 2022-09-30 00:00:00 2022-09-30 00:00:00 Outpatient FOG_Kai Scott AOSM AOSM [id number] [facility] 2022-09-30 00:00:00 2022-09-30 00:00:00 Outpatient FOG_Kai Scott AOSM AOSM [id number] [facility] 2022-09-30 00:00:00 2022-09-30 00:00:00 Outpatient FOG_Kai Scott AOSM AOSM [id number] [facility] 2022-09-30 00:00:00 2022-09-30 00:00:00 Outpatient FOG_Kai Scott AOSM AOSM [id number] [facility] 2022-09-30 00:00:00 2022-09-30 00:00:00 Outpatient FOG_Kai Scott AOSM AOSM [id number] [facility] 2022-09-30 00:00:00 2022-09-30 00:00:00 Outpatient FOG_Kai Scott AOSM AOSM [id number] [facility] 2022-09-30 00:00:00 2022-09-30 00:00:00 Outpatient FOG_Kai Scott AOSM AOSM [id number] [facility] 2022-09-30 00:00:00 2022-09-30 00:00:00 Outpatient FOG_Kai Scott AOSM AOSM [id number] [facility] 2022-09-28 00:00:00 2022-09-28 00:00:00 Maverick Pringle MD: [address] [place] [address] , Ph. [phone] [facility] [place] [facility] [id number] [facility] 2022-09-12 00:00:00 2022-09-12 00:00:00 Outpatient FOG_Kai Scott AOSM AOSM [id number] [facility] 2022-09-12 00:00:00 2022-09-12 00:00:00 Outpatient FOG_Kai Scott AOSM AOSM [id number] [facility] 2022-09-09 00:00:00 2022-09-09 00:00:00 Outpatient FOGSilver Scott AOSM AOSM [id number] [facility] 2022-09-07 00:00:00 2022-09-07 00:00:00 Maverick Pringle MD: [address] [place] [address] , Ph. [phone] [facility] [place] [facility] [id number] [facility] 2022-09-06 00:00:00 2022-09-06 00:00:00 Outpatient FOG_Viet Whipple AOSM AOSM [id number] [facility] 2022-09-06 00:00:00 2022-09-06 00:00:00 Outpatient FOG_Viet Whipple AOSM AOSM [id number] [facility] 2022-08-25 00:00:00 2022-08-25 00:00:00 Outpatient FOG_Viet Whipple AOSM AOSM [id number] [facility] 2022-08-25 00:00:00 2022-08-25 00:00:00 Outpatient FOG_Viet Whipple AOSM AOSM [id number] [facility] 2022-08-22 08:25:00 2022-08-23 14:20:00 Inpatient LARISSA OgdenMaverick rivas [facility] [id number] [facility] 2022-08-22 00:00:00 2022-08-22 00:00:00 Maverick Pringle MD: [address] [place] [address] , Ph. [phone] [facility] [place] [facility] [id number] [facility] 2022-08-15 13:00:00 2022-08-15 13:30:00 Office Visit Jaswinder Ha [facility] 1.2.840.114 350.1.13.10 4.2.7.2.686 [id number] [facility] 2022-08-15 13:00:00 2022-08-15 13:00:00 Outpatient JASWINDER HATCH [facility] [id number] [facility] 2022-08-13 00:00:00 2022-08-13 00:00:00 Outpatient FOG_Viet Whipple AOSM AOSM [id number] [facility] 2022-08-13 00:00:00 2022-08-13 00:00:00 Outpatient ESTHELA_Viet Whipple AOSM AOSM [id number] [facility] 2022-08-13 00:00:00 2022-08-13 00:00:00 Outpatient FOG_Viet Whipple AOSM AOSM [id number] [facility] 2022-08-13 00:00:00 2022-08-13 00:00:00 Outpatient FOGRafiq Whipple AOSM AOSM [id number] [facility] 2022-08-10 16:02:00 2022-08-10 16:02:00 Outpatient Pino Maverick [facility] LABO [id number] [facility] 2022-08-10 10:32:00 2022-08-10 10:32:00 Outpatient LARISSA PendroyMaverick rivas [facility]AT[facility] RADI [id number] [facility] 2022-08-08 00:00:00 2022-08-08 00:00:00 Outpatient Shen Whipple AO AO [id number] [facility] 2022-08-03 00:00:00 2022-08-03 00:00:00 Telephone Ha Jaswinder Prem [facility] 1.2.840.114 350.1.13.10 4.2.7.2.686 [id number] [facility] 2022-08-03 00:00:00 2022-08-03 00:00:00 Maverick Pringle MD: [address] [place] [address] , Ph. [phone] [facility] [place] [facility] [id number] [facility] 2022-07-28 00:00:00 2022-07-28 00:00:00 Outpatient Shen Whipple AO AO [id number] [facility] 2022-07-22 00:00:00 2022-07-22 00:00:00 Tyron Dotson MD: [address] [place] [address] , Ph. 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 [phone] [place] - Ortho [place] - FOG_[facility] [id number] [facility] 2022-05-12 14:00:00 2022-05-12 14:57:25 Outpatient JASWINDER HATCH [facility] [id number] [facility] 2022-05-12 14:00:00 2022-05-12 14:57:25 Office Visit Jaswinder Ha [facility] 07.11.840.114 350.1.13.10 4.2.7.2.686 [id number] [facility] 2022-04-08 00:00:00 2022-04-08 00:00:00 Outpatient Shen [facility] [id number] [facility] 2022-04-05 00:00:00 2022-04-05 00:00:00 Orders Only Doctor Unassigned, [place] [facility] 1.840.114 350.1.13.10 4.2.7.2.686 [id number] [facility] 2022-04-01 00:00:00 2022-04-01 00:00:00 Outpatient FOG_Mauri_Davian negron_ [facility] [id number] [facility] 2022-04-01 00:00:00 2022-04-01 00:00:00 Tyron Dotson MD: [address] [place] [phone] , Ph. [phone] [facility] [place] - [facility] - FOG_[facility] [id number] [facility] 2022-03-21 15:30:00 2022-03-21 15:52:29 [facility] 1.840.114 350.1.13.10 4.2.7.2.686 [id number] [facility] 2022-03-21 15:30:00 2022-03-21 15:52:29 Outpatient R KATHERIN [facility] [id number] [facility] 2022-03-21 15:30:00 2022-03-21 15:30:00 Outpatient Margie PANDEY [facility] [id number] [facility] 2022-03-21 00:00:00 2022-03-21 00:00:00 Telephone Jaswinder Ha [facility] 1.2840.114 350.1.13.10 4.2.7.2.686 [id number] [facility] 2022-03-08 00:00:00 2022-03-08 00:00:00 Telephone Jaswinder Ha [facility] 1.2.840.114 350.1.13.10 4.2.7.2.686 [id number] [facility] 2022-02-21 13:00:00 2022-02-21 13:00:00 Outpatient CURTIS CAREY [facility] [id number] [facility] 2022-02-21 13:00:00 2022-02-21 13:00:00 Outpatient DAVIE CAREYLSHAN [facility] [id number] [facility] 2022-02-21 00:00:00 2022-02-21 00:00:00 Outpatient FOG_Mauri_Davian negron_ AO AO [id number] [facility] 2022-02-21 00:00:00 2022-02-21 00:00:00 Outpatient Tyron Dotson [facility] [id number] 2022-02-21 00:00:00 2022-02-21 00:00:00 Tyron Dotson MD: [address] [place] [phone] , Ph. [phone] [place] - [facility] - FOG_[facility] [id number] [facility] 2022-02-09 11:00:00 2022-02-09 12:22:57 Outpatient JASWINDER HATCH [facility] [id number] [facility] 2022-02-09 11:00:00 2022-02-09 12:22:57 Office Visit Jaswinder Ha [facility] 1..840.114 350.1.13.10 4.2.7.2.686 [id number] [facility] 2022-02-09 00:00:00 2022-02-09 00:00:00 Orders Only Doctor Unassigned, [place] [facility] 1..840.114 350.1.13.10 4.2.7.2.686 [id number] [facility] 2022-01-26 00:00:00 2022-01-26 00:00:00 [facility] 1..840.114 350.1.13.10 4.2.7.2.686 [id number] [facility] 2022-01-25 00:00:00 2022-01-25 00:00:[address] [facility] [place] [facility] 1..840.114 350.1.13.10 4.2.7.2.686 [id number] [facility] 2022-01-24 10:30:00 2022-01-24 10:30:00 Outpatient JASWINDER HATCH [facility] [id number] [facility] 2022-01-17 00:00:00 2022-01-17 00:00:00 Outpatient Shen Whipple [facility] [id number] [facility] 2022-01-17 00:00:00 2022-01-17 00:00:00 Outpatient Tyron Dotson [facility] [id number] 2022-01-17 00:00:00 2022-01-17 00:00:00 Tyron Dotson MD: [address] [place] [phone] , Ph. [phone] [facility] - [facility] - FOG_[facility] [id number] [facility] 2022-01-11 00:00:00 2022-01-11 00:00:00 Telephone Jaswinder Ha [facility] 1..840.114 350.1.13.10 4.2.7.2.686 [id number] [facility] 2022-01-08 02:10:00 2022-01-08 02:10:00 Outpatient Shen Whipple AOSM AO [id number] [facility] 2022-01-03 11:53:00 2022-01-03 11:53:00 Outpatient ESTHELA_Viet Whipple [facility] AOSM [id number] [facility] 2022-01-03 00:00:00 2022-01-03 00:00:00 Tyron Dotson MD: [address] [place] [address] , Ph. [phone] [facility] [place] - [facility] - FOG_Ofc [facility] [id number] [facility] 2022-01-03 00:00:00 2022-01-03 00:00:00 Outpatient Tyron Dotson AO AO [id number] 2021-12-27 09:38:00 2021-12-27 11:09:00 Emergency [facility] [id number] [facility] 2021-12-27 09:38:00 2021-12-27 11:09:00 Emergency Tyron Frances [facility] [id number] [facility] 2021-12-27 01:37:00 2021-12-27 01:37:00 Outpatient Shen Whipple AO AO [id number] [facility] 2021-12-27 01:37:00 2021-12-27 01:37:00 Outpatient Shen Whipple A[facility] AOSM [id number] [facility] 2021-12-13 00:00:00 2021-12-13 00:00:00 Telephone Jaswinder Ha [facility] 1.2.840.114 350.1.13.10 4.2.7.2.686 [id number] [facility] 2021-09-20 13:00:00 2021-09-20 14:30:55 Outpatient R HA JASWINDER [facility] [id number] [facility] 2021-09-20 13:00:00 2021-09-20 14:30:55 Office Visit Jaswinder Ha [facility] 1.2840.114 350.1.13.10 4.2.7.2.686 [id number] [facility] 2021-09-20 13:00:00 2021-09-20 13:00:00 Outpatient JASWINDER HATCH [facility] [id number] [facility] 2021-08-25 00:00:00 2021-08-25 00:00:00 Refill Katherin [facility] 1.114 350.1.13.10 4.2.7.2.686 [id number] [facility] 2021-08-17 14:30:00 2021-08-17 15:03:07 Office [facility] 1..114 350.1.13.10 4.2.7.2.686 [id number] [facility] 2021-08-17 14:30:00 2021-08-17 15:03:07 [facility] [id number] [facility] 2021-08-17 14:30:00 2021-08-17 14:30:00 Outpatient Margie PANDEY [facility] [id number] [facility] 2021-08-17 00:00:00 2021-08-17 00:00:00 Orders Only Doctor Unassigned, [place] [facility] 1..114 350.1.13.10 4.2.7.2.686 [id number] [facility] 2021-06-21 13:30:00 2021-06-21 16:34:12 Office Visit Jaswinder Ha [facility] PRATIBHA 1.84.114 350.1.13.10 4.2.7.2.686 [id number] [facility] 2021-06-21 13:30:00 2021-06-21 16:34:12 Outpatient R JASWINDER HA [facility] [id number] [facility] 2021-06-21 13:30:00 2021-06-21 13:30:00 Outpatient R JASWINDER HA [facility] [id number] [facility] 2021-06-07 00:00:00 2021-06-07 00:00:00 Telephone Jaswinder Ha [facility] PRATIBHA 1.840.114 350.1.13.10 4.2.7.2.686 [id number] [facility] 2021-05-31 14:56:12 2021-05-31 23:59:00 Outpatient SAMEER RAMIREZ HOWARD [facility] [id number] [facility] 2021-05-31 14:56:12 2021-05-31 23:59:00 Hospital Encounter VitorSameer [facility] 1.840.114 350.1.13.10 4.2.7.2.686 [id number] [facility] 2021-05-27 10:15:00 2021-05-27 10:15:00 Outpatient R JASWINDER HA [facility] [id number] [facility] 2021-05-27 09:51:49 2021-05-27 10:06:49 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 Pob, Adc Lab Main [facility]inder [facility] 1.840.114 350.1.13.10 4.2.7.2.686 [id number] [facility] 2021-05-27 00:00:00 2021-05-27 00:00:00 Orders Only Doctor Unassigned, [place] [facility] 1..114 350.1.13.10 4.2.7.2.686 [id number] [facility] 2021-05-25 13:40:00 2021-05-25 14:19:53 Outpatient SAMEER RAMIREZ HOWARD [facility] [id number] [facility] 2021-05-25 13:12:58 2021-05-25 14:19:53 [facility] 1.840.114 350.1.13.10 4.2.7.2.686 [id number] [facility] 2021-05-11 13:00:00 2021-05-11 13:46:33 [facility] [id number] [facility] 2021-05-11 12:48:18 2021-05-11 13:46:33 Office Visit Katherin [facility] CENTER AND [facility] 1.84.114 350.1.13.10 4.2.7.2.686 [id number] [facility] 2021-05-11 13:00:00 2021-05-11 13:00:00 Outpatient R KATHERIN [facility] [id number] [facility] 2021-04-29 00:00:00 2021-04-29 00:00:00 Orders Only Doctor Unassigned, [place] [facility] 1.840.114 350.1.13.10 4.2.7.2.686 [id number] [facility] 2021-04-19 00:00:00 2021-04-19 00:00:00 Refill Jaswinder Ha [facility] PAVMARY ELLEN 1.2.840.114 350.1.13.10 4.2.7.2.686 [id number] [facility] 2021-03-22 12:41:25 2021-03-22 14:21:16 Office Visit Jaswinder Ha [facility] PRATIBHA 1.2.840.114 350.1.13.10 4.2.7.2.686 [id number] [facility] 2021-03-22 13:00:00 2021-03-22 13:00:00 Outpatient JASWINDER HATCH [facility] [id number] [facility] 2021-03-08 00:00:00 2021-03-08 00:00:00 Davie Pattersonlshan [facility] 1.2.840.114 350.1.13.10 4.2.7.2.686 [id number] [facility] 2021-02-11 15:30:00 2021-02-11 16:02:49 Outpatient RUT GARCIA [facility] [id number] [facility] 2020-12-16 13:00:00 2020-12-16 13:00:00 Outpatient JASWINDER HATCH [facility] [id number] [facility] 2020-11-16 09:00:00 2020-11-16 09:00:00 Outpatient Margie [facility] [id number] [facility] 2020-11-06 15:46:17 2020-11-06 23:59:00 Outpatient CURTIS CAREY [facility] [id number] [facility] 2020-11-06 00:00:00 2020-11-06 00:00:00 Outpatient CURTIS CAREY [facility] [id number] [facility] 2020-10-25 00:00:00 2020-10-25 00:00:00 [facility] [id number] [facility] 2020-10-15 13:00:00 2020-10-15 13:00:00 Outpatient Margie FERRaoul [facility] [id number] [facility] 2020-09-26 13:00:00 2020-09-26 13:00:00 Outpatient R [facility] [id number] [facility] 2020-09-25 16:00:00 2020-09-25 16:00:00 Outpatient R [facility] [id number] [facility] 2020-09-14 13:30:00 2020-09-14 13:30:00 Outpatient JASWINDER HATCH [facility] [id number] [facility] 2020-07-31 13:00:00 2020-07-31 13:00:00 Outpatient R FERRaoul [facility] [id number] [facility] 2020-07-22 14:12:24 2020-07-22 15:24:24 Office Visit Katherin [facility] AND [facility] 1.840.114 350.1.13.10 4.2.7.2.686 [id number] 2020-07-22 14:30:00 2020-07-22 14:30:00 Outpatient R BLOSSOMJANEY [facility] [id number] [facility] 2020-07-22 00:00:00 2020-07-22 00:00:00 Orders Only Doctor Unassigned, [place] [facility] 1.840.114 350.1.13.10 4.2.7.2.686 [id number] 2020-07-14 14:00:00 2020-07-14 14:00:00 Outpatient BHUMI MOFFETT [facility] [id number] [facility] 2020-06-15 14:30:00 2020-06-15 14:30:00 Outpatient JASWINDER HATCH [facility] [id number] [facility] 2020-05-27 18:00:00 2020-05-27 18:00:00 Outpatient Margie MARIETTA GONZALEZ [facility] [id number] [facility] 2020-04-27 09:00:00 2020-04-27 09:00:00 Outpatient R [facility] [id number] [facility] 2020-04-03 15:00:00 2020-04-03 15:00:00 Outpatient ANUPAM ACEVEDO [facility] [id number] [facility] 2020-03-30 14:30:00 2020-03-30 14:30:00 Outpatient CURTIS CAREY [facility] [id number] [facility] 2020-03-11 13:00:00 2020-03-11 13:00:00 Outpatient JASWINDER HATCH [facility] [id number] [facility] 2020-01-08 00:00:00 2020-01-08 00:00:00 Outpatient CURTIS CAREY [facility] [id number] [facility] 2019-12-23 13:00:00 2019-12-23 13:00:00 Outpatient CURTIS CAREY [facility] [id number] [facility] 2019-12-11 13:30:00 2019-12-11 13:30:00 Outpatient JASWINDER HATCH [facility] [id number] [facility] 2019-09-09 14:00:00 2019-09-09 14:00:00 Outpatient JASWINDER HATCH [facility] [id number] [facility] Results Test Description Test Time Test Comments Results Result Co mments Source [facility] [id number] 20:36:00* Test Item Value Reference Range Interpretation Comme nts POCT HBA1C (test code = 4548-4) 7.6 % 4-6 A Lab Interpretation (test cod e = 77143-2) Abnormal [facility] Hemoglobin A1C [id number] 20:36:00* Test Item Value Reference Range Interpretation Comme nts POCT HBA1C (test code = 4548-4) 7.6 % 4-6 A Lab Interpretation (test cod e = 74663-8) Abnormal [facility] Hemoglobin A1C [id number] 20:36:00* Test Item Value Reference Range Interpretation Comme nts POCT HBA1C (test code = 4548-4) 7.6 % 4-6 A Lab Interpretation (test cod e = 98218-7) [facility]normal [facility] 2 [id number] 17:27:15PROCEDURE:XR CHEST 2 VW ORDERING PHYSICIAN: JESUSITA [...] within normal limits. Status postreverse right shoulder arthroplasty.[facility] HEMOGLOBIN A1C [id number] 19:25:00* Test Item Value Reference Range Interpretation Comme nts POCT HBA1C (test code = 4548-4) 4.4 % 4-6 [facility] HEMOGLOBIN A1C [id number] 19:25:00* Test Item Value Reference Range Interpretation Comme nts POCT HBA1C (test code = 4548-4) 4.4 % 4-6 [facility] HEMOGLOBIN A1C [id number] 18:43:00* Test Item Value Reference Range Interpretation Comme nts POCT HBA1C (test code = 4548-4) 6.8 % 4-6 A Lab Interpretation (test cod e = 90551-0) Abnormal [facility] HEMOGLOBIN A1C [id number] 18:43:00* Test Item Value Reference Range Interpretation Comme nts POCT HBA1C (test code = 4548-4) 6.8 % 4-6 A Lab Interpretation (test cod e = 87462-5) Abnormal [facility] HEMOGLOBIN A1C [id number] 18:31:00* Test Item Value Reference Range Interpretation Comme [facility] POCT HBA1C (test code = 4548-4) 6.6 % 4-6 A Lab Interpretation (test cod e = 64456-2) Abnormal [facility] HEMOGLOBIN A1C [id number] 18:31:00* Test Item Value Reference Range Interpretation Comme [facility] POCT HBA1C (test code = 4548-4) 6.6 % 4-6 A Lab Interpretation (test cod e = 71983-7) Abnormal [facility]-14 11:14:00* Test Item Value Reference Range Interpretation Comme nts GLUBED (test code = GLUBED) 233 mg/dL 60-125 H ntroee1996-99-10 11:00:00* Test Item Value Reference Range Interpretation Comme nts glubed (test code = glubed) 233 mg/dL 60-125 H performing lab: (test code = performing lab:) [facility] METABOLIC [id number] 06:30:00* Test Item Value Reference Range Interpretation [...] calculation forGFR is based on the CKD-EPI (2020) calculation. This formulais race indifferent and is the recommended formula for GFRby the National Kidney Foundation for Adults.The GFR will not calculate if the sex is unknown or if thepatient's age is <18 years. CREATININE (test code = CREAT) 0.67 mg/dL 0.55-1.30 N CALCIUM (test code = CA) 8.4 mg/dL 8.2-10.1 N CBC W/AUTO [id number] 06:06:00* Test Item Value Reference Range Interpretation [...] 0 % 0-0 N SPECIMEN COMMENT: POD #[id number] 05:30:00* Test Item Value Reference Range Interpretation Comme nts GLUBED (test code = GLUBED) 147 mg/dL 60-125 H [id number] 05:17:00* Test Item Value Reference Range Interpretation Comme nts glubed (test code = glubed) 147 mg/dL 60-125 H performing lab: (test code = performing lab:) [facility] Sports [id number] 19:52:00* Test Item Value Reference Range Interpretation Comme nts GLUBED (test code = GLUBED) 292 mg/dL 60-125 H [id number] 19:39:00* Test Item Value Reference Range Interpretation Comme nts glubed (test code = glubed) 292 mg/dL 60-125 H performing lab: (test code = performing lab:) [facility] 18:08:00* Test Item Value Reference Range Interpretation Comme nts GLUBED (test code = GLUBED) 206 mg/dL 60-125 H [id number] 17:56:00* Test Item Value Reference Range Interpretation Comme nts glubed (test code = glubed) 206 mg/dL 60-125 H performing lab: (test code = performing lab:) [facility]- XR SHOULDER 1 V [id number] 16:00:00 [facility] : 1955 Sex: F Patient Name: EMBER TRUONGANNELIESE ROCHE Unit No: [id number] EXAMS: CPT CODE: [id number] XR SHOULDER 1V [place] 58513 AP portable right shoulder COMMENT: The patient is status post reverse prosthesis placement which is articulating normally. at 1600 Reported and signed by: Yash Delgado MD CC: Maverick Pringle MD; Hany Cardona DO Technologist: Carmen Hilton(R) Transcribed D/ (1600) Tanvi [facility] NAME: TALIB TRUONG [address] [facility] PHYS: Hany Javed DO : 1955 AGE: 67 SEX: F [place] [address] LOC: Y.O20 A PHONE #: EXAM DATE: 08/22/2022 STATUS: ADM IN FAX #: [phone] RAD #: D/C DT PAGE 1 Signed Report Patient Name: TALIB TRUONG Unit No: [id number] EXAMS: CPT CODE: [id number] XR SHOULDER1 V RT 41845 (Continued) Orig Print D/T: S: 08/22/2022 (1603) [facility] NAME: TALIB TRUONG [address] [place] [address] PHYS: Hany Javed DO : 1955 AGE: 67 SEX: F [place] [address] LOC: Y.O20 A PHONE #: [phone] EXAM DATE: 08/22/2022 STATUS: ADM IN FAX #: [phone] RAD #: D/C DT PAGE 2 Signed [id number] 09:42:00* Test Item Value Reference Range Interpretation Comme nts GLUBED (test code = GLUBED) 145 mg/dL 60-125 H [id number] 09:30:00* Test Item Value Reference Range Interpretation Comme nts glubed (test code = glubed) 145 mg/dL 60-125 H performing lab: (test code = performing lab:) [facility] [id number] 19:15:00* Test Item Value Reference Range Interpretation Comme nts POCT HBA1C (test code = 4548-4) 7.0 % 4-6 A Lab Interpretation (test cod e = 43726-8) Abnormal [facility] HEMOGLOB[facility] A1C [id number] 19:15:00* Test Item Value Reference Range Interpretation Comme nts POCT HBA1C (test code = 4548-4) 7.0 % 4-6 A Lab Interpretation (test cod e = 83543-6) Abnormal [facility] [id number] 10:45:00* Test Item Value Reference Range Interpretation [...] on Heparin Drip? NOSPECIMEN COMMENT: 1THROMBOPLASTIN TIME [id number] 10:45:00* Test Item Value Reference Range Interpretation [...] performing lab: (test code = performing lab:) [facility] tndeduw7456-07-03 10:15:00 * Test Item Value Reference Range Interpretation Comme nts PTT activated (test code = P TT activated) 21.1 secs 26.6-34.6 L performing lab: (test code = performing lab:) [facility] Sports MedicineGLYCOSYLATED HEMOGLOBIN (HA1C)2022-08-10 20:53:00* Test Item Value Reference [...] fructosamineshould be considered for these patients.DONE AT: [facility] [id number] [place] [address] GLYCOSYLATED HEMOGLOBIN (HA1C)2022-08-10 20:52:00* Test Item Value [...] be considered for these patients. COMPREHENSIVE METABOLIC [id number] 15:27:00* Test Item Value Reference Range Interpretation [...] ALKP) 81 U/L 46-116 N CBC W/AUTO [id number] 14:34:00* Test Item Value Reference Range Interpretation [...] N CBC W Auto Differential panel - [id number] 14:10:00* Test Item Value Reference Range Interpretation [...] performing lab: (test code = performing lab:) [facility] MedicineComprehensive metabolic 2000 panel - Serum or [id number] 14:10:00* Test Item Value Reference Range Interpretation [...] performing lab: (test code = performing lab:) [facility]2022-08-10 14:10:00* Test Item Value Reference Range Interpretation Comme nts Hemoglobin A1c/Hemoglobin.to maria dolores in Blood (test code = 4548-4) 6.9 % 4.8-5.9 H performing lab: (test code = performing lab:) [facility]Meth[facility] resistant Staphylococcus aureus [Presence] in Specimen by Organism specific [id number] 14:10:00* Test Item Value Reference Range Interpretation Comme nts MRSA surveillance screen (te st code = MRSA surveillance screen) see below performing lab: (test code = performing lab:) [facility] PCR surveillance [id number] 14:10:00 * Test Item Value Reference Range Interpretation Comme nts mssa PCR surveillance screen (test code = mssa PCR surveillance screen) see below performing lab: (test code = performing lab:) [facility] Medicine- CT UP EXTREM W/O CONT [id number] 11:41:00 [facility] 1955 Sex: F Patient Name: TALIB TRUONG Unit No: [id number] EXAMS: CPT CODE: [id number] CT UP EXTREM W/O CONT [place] [address]47HE OF THE RIGHT SHOULDER WITH SAGITTAL AND [...] were obtained. CT radiation dose optimization is achieved for this examination by the use of a CT protocol in accordance with ACR practice standards and adherence to plant inspector's recommendations. Posttraumatic and degenerative changes are present as described. There is no evidence for rotator cuff atrophy. There is no evidence for an intra-articular loose body. at 1141 Reported and signed by: Yash Delgado MD CC: Maverick Pringle MD; Tyron Dotson MD Technologist: Thomas Walden,RT(R) CTDI: DLP: Trnscrpt: 08/10/2022 (1141) [email or web address] [facility] NAME: TALIB TRUONG [address] PHYS: Maverick Echeverria MD : 1955 AGE: 67 SEX: F [place], [place] [address] LOC: Y.RAD PHONE #: [phone] EXAM DATE: 08/10/2022 STATUS: REG CLI FAX #: [phone] RAD #: D/C DT PAGE 1 Signed Report Patient Name: TALIB TRUONG Unit No: [id number] EXAMS: CPT CODE: [id number] CT UP EXTREM W/[place] [id number] (Continued) Orig Print D/T: S: 08/10/2022 (1144) [facility] NAME: TALIB TRUONG [address] [facility] PHYS: Maverick Echeverria MD : 1955 AGE: 67 SEX: F [place], [place] [address] LOC: Y.RAD PHONE #: [phone] EXAM DATE: 08/10/2022 STATUS: REG CLI FAX #: [phone] RAD #: D/C DTPAGE 2 Signed ReportPOCT HEMOGLOBIN A1C TEST 2022-05-12 19:09:00* Test Item Value Reference Range Interpretation Comme [facility] POCT HBA1C (test code = 4548-4) 6.9 % 4-6 A Lab Interpretation (test cod e = 99145-6) [facility]normal [facility] [id number] 19:09:00* Test Item Value Reference Range Interpretation Comme [facility] POCT HBA1C (test code = 4548-4) 6.9 % 4-6 A Lab Interpretation (test cod e = 41743-7) Abnormal [facility] XR HUMERUS 2 + V [id number] 07:06:00 [facility] 1955 Sex: F Patient Name: TALIB TRUONG Unit No: [id number] EXAMS: CPT CODE: [id number] XR HUMERUS 2 + [place] [address]168 Rightshoulder 2 views COMMENT: There is a comminuted fracture of the proximal humerus with an oblique humeral neck fracture with impaction and a greater tuberosity fracture. Degenerative change is noted in the glenohumeral joint. at 0706 Reported and signed by: Yash Delgado MD CC: Tyron Dotson MD Technologist: Kristen Gamboa RT.(R) Transcribed D/ (705) JaysonJCL [facility] NAME: TALIB TRUONG [address] [place] [address] PHYS: Tyron Tiwari MD : 1955 AGE: 66 SEX: F [place] [address] LOC: KIANA PHONE #: [phone] EXAM DATE: 12/27/2021 STATUS: DEP ER FAX #: [phone] RAD #: D/C DT PAGE 1 Signed Report Patient Name: TALIB TRUONG Unit No: [id number] EXAMS: CPT CODE: [id number] XR HUMERUS 2 + V RT 16235 (Continued) Orig Print D/T: S: 12/28/2021 (0709) [facility] NAME: TALIB TRUONG [address] [place] [address] PHYS: Tyron Tiwari MD : 1955 AGE: 66 SEX: F [place] [address] LOC: KIANA PHONE #: [phone] EXAM DATE: 12/27/2021 STATUS: DEP ER FAX #: [phone] RAD #: D/C DT PAGE 2 Signed Report Notes Date/Time Note Provider Source 2024-01-24 16:11:21 STEVEN:11/16/2023 NOV:04/08/2024 Last note; Return in about 3 months (around 03/07/2024). [employer] requesting chart notes most recent , sent to them [phone]. Received confirmation of receipt. [facility] 2023-11-27 08:31:29 Talib Truong is a 68 year old female Patient calling to see if she can be seen this month after , patient states her transportation isnt working but does not want to wait 6 months. Please advise Elham Tripp [facility] 2023-10-12 10:00:10 Images from the original note were not included. STEVEN:08/21/2023 NOV:11/20/2023 Last note; Return in about 3 months (around 11/19/2023). Printed Last notes and faxed them to [facility] for patients diabetic supplies. Received confirmation on receipt Estrellita Torres RN [facility] 2023-08-30 10:32:24 NOV: 11/20/23 STEVEN: 05/18/23 Refill denied Rx sent in 08/21/23 by provider [employer] FORMER Dottie De La Rosa LVN [facility] 2023-07-16 11:57:00 Pt given printed and verbal discharge instructions regarding acute cough, encouraged hydration. Prescriptions provided. Pt verbalized understanding of instructions, pt awake alert oriented, resp reg unlabored, skin w/d, color appropriate for race, moves all ext well,pt encouraged to follow up with pcp. Advised to seek medical attention for new/prolonged/worsening of symptoms. No adverse reaction to meds given in ER noted upon discharge. Awake, alert oriented, resp reg unlabored, skin w/d, pt leaving amb with steady gait, in no apparent distress, accompanied by son. [employer] FORMER [facility] 2023-07-16 09:45:00 Patient came in with complaints of cough, congestion, SOB since 2 weeks. IE Steele RN [facility] 2023-07-16 09:44:00 [facility] Emergency Department Note Patient Name: Talib Truong Date of : 1955 67 year old female Treatment Room: Room/bed info not found Primary Care Physician: Raffi Fisher Patient Escorted by: Family [5] Mode of Arrival: Personal means [1] EMS Treatment Prior to ED Arrival: Travel and Exposure Screening: Symptoms Does patient have any of these symptoms?: (not recorded) Exposure Screening Has patient had contact with someone with a communicable disease in the last month?: (not recorded) Diseases exposed to:: (not recorded) Is Patient ?: (not recorded) Exposure Date: (not recorded) Chief Complaint: Chief Complaint Patient presents with Cough Shortness of Breath Congestion History of Present Illness: The patient presents from home for evaluation for [...] blood pressure, diabetes and history of an MA in the past. No leg swelling. Here for evaluation. Past Medical History/Immunizations: Past Medical History: Diagnosis Date Arthritis Depression Diabetes mellitus Hypertension Myocardial infarction Other and unspecified hyperlipidemia Pseudophakia of both eyes Allergies: Allergies Allergen Reactions Vancomycin Unknown - See comments paralysis Covid-19 (Sars-Cov-2) Vaccine, Ad26 Rash Past Social History: Tobacco Use Former; Cigarettes: Quit 07/24/2005; 3.00 packs/day Smokeless Tobacco: Never used smokeless tobacco. Alcohol Use Yes. Comments: occasional Drug Use No. 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 Respiratory: Positive for cough and shortness of breath. Cardiovascular: Negative for chest pain. Gastrointestinal: Negative for abdominal pain and vomiting. Genitourinary: Negative for dysuria. Musculoskeletal: Negative for arthralgias, neck pain and neck stiffness. Skin: Negative for wound. Neurological: Negative for dizziness. Psychiatric/Behavioral: Negative for agitation. Endocrine: Negative for goiter. Physical Exam: ED Triage Vitals [07/16/23 0900] Weight 70.3 kg (155 lb) Actual or estimated Height 1.575 m (5' 2") BP 121/69 Pulse 103 Resp 16 Temp 37.2 ?C (99 ?F) Temp src SpO2 97 % Measured on Physical Exam Vitals and nursing note reviewed. Constitutional: Appearance: Normal appearance. She is normal weight. HENT: Head: Normocephalic and atraumatic. Right Ear: Tympanic membrane and ear canal normal. Left Ear: Tympanic membrane and ear canal normal. Nose: Nose normal. Mouth/Throat: Mouth: Mucous membranes are moist. Pharynx: Oropharynx is clear. No oropharyngeal exudate or posterior oropharyngeal erythema. Cardiovascular: Rate and Rhythm: Normal rate and regular rhythm. Pulses: Normal pulses. Pulmonary: Effort: Pulmonary effort is normal. No respiratory distress. Breath sounds: No stridor. No wheezing or rhonchi. Chest: Chest wall: No tenderness. Abdominal: General: There is no distension. Palpations: Abdomen is soft. There is no mass. Tenderness: There is no abdominal tenderness. There is no guarding. Hernia: No hernia is present. Musculoskeletal: General: Normal range of motion. Cervical back: Normal range of motion and neck supple. Skin: General: Skin is warm and dry. Neurological: General: No focal deficit present. Mental Status: She is oriented to person, place, and time. Radiology: XR CHEST 2 VW Final Result PROCEDURE:XR CHEST 2 VW ORDERING PHYSICIAN: JESUSITA OWEN HISTORY: Cough TECHNIQUE: PA and Lateral views of the chest were performed. TECHNICAL QUALITY: Adequate COMPARISON: None available FINDINGS: Support Devices: None. Cardiac Silhouette/Mediastinum/Tasneem: The cardiac, mediastinal, and hilar contours are within normal limits Lungs/Pleural Spaces: There is no focal consolidation. The pleural spaces are clear. Chest Wall/Diaphragm/Upper Abdomen: The thoracic musculoskeletal structures and the upper abdomen are within normal limits. Status post reverse right shoulder arthroplasty. IMPRESSION No acute cardiopulmonary process RL: 415 End of report. Lab Results: Lab Results COVID-19 (ID NOW RAPID TESTING) - Normal Result Value Ref Range SARS-CoV-2 Rapid ID NOW Not Detected Not Detected RAPID INFLUENZA A/B - Normal Rapid Influenza A Negative Negative Rapid Influenza B Negative Negative EKG: If EKG completed, see Procedure Note. Orders and Treatments: Orders Placed This Encounter Procedures XR CHEST 2 VW COVID-19 (ID NOW TESTING) RAPID INFLUENZA A/B Lab Only COVID Interpretation Orders Placed This Encounter Medications codeine-guaifenesin (ROBITUSSIN AC) 10-100 mg/5 mL oral solution 10 mL albuterol 90 mcg/actuation inhaler brompheniramine-pseudoephedrin e-DM (BROMFED DM) 2-30-10 mg/5 mL syrup First Provider Eval: ED Events Date/Time Event User Comments 07/16/23944 Medical Screening Begins JESUSITA OWEN DO -- 07/16/23944 First Provider Evaluation JESUSITA OWEN DO -- ED COURSE Diagnosis/Impression as of 07/16/23 1145 Acute cough Procedures: Procedures MDM: Medical Decision Making The patient presents from home for evaluation for worsening shortness of breath over the past 2 weeks as well as cough, congestion and not feeling well. She has been around sick contacts. She has been using [id number] cough and cold medications reports they are not helping. She last had something around 4 AM today. No history of asthma, COPD or congestive heart failure. She is a former smoker. Vital signs are stable in the ER. She has no use accessory muscles. Stable to speak in full and complete sentences without difficulty. Her lungs are clear bilaterally. No pitting edema to her legs. Will obtain a chest x-ray to evaluate possible pneumonia. Will screen the patient for COVID and influenza. Anticipate discharge home later. 1145 -the patient is doing well here in the ER. Her chest x-ray shows no acute cardiopulmonary issues. She is negative for COVID and negative for flu. She remained stable here in the ER and is okay for discharge home with PCP follow-up. Problems Addressed: Acute cough: acute illness or injury Amount and/or Complexity of Data Reviewed Labs: ordered. Decision-making details documented in ED Course. Radiology: ordered and independent interpretation performed. Decision-making details documented in ED Course. Risk OTC drugs. Prescription drug management. Flowsheet Documentation: Scoring Tools: No data recorded Disposition/Condition: ED Disposition ED Disposition Disch - Home Condition Stable Comment -- Discharge Medications: Patient's Medications START taking these medications ALBUTEROL 90 MCG/ACTUATION INHALER Inhale 2 Puffs every 4 (four) hours as needed for Wheezing or Shortness of Breath. BROMPHENIRAMINE-PSEUDOEPHEDRIN E-DM (BROMFED DM) 2-30-10 MG/5 ML SYRUP Take 5 mL by mouth 4 (four) times daily as needed for Cold symptoms or Cough. CONTINUE taking these medications which have NOT CHANGED ACETONE, URINE, TEST (KETONE URINE TEST) STRIP Use as directed as needed to check for ketones ALISKIREN (TEKTURNA) 150 MG TABLET Take 1 tablet by mouth in the morning. ASPIRIN 81 MG ORAL CHEW once daily ATORVASTATIN 40 MG TABLET Take 2 tablets by mouth at bedtime. BLOOD-GLUCOSE SENSOR (Powtoon G6 SENSOR) IRMA Change sensor every 10 days BLOOD-GLUCOSE TRANSMITTER (Powtoon G6 TRANSMITTER) IRMA Change every 90 days CHOLECALCIFEROL, VITAMIN D3, (VITAMIN D3) 1,000 UNIT TABLET Take 1 tablet by mouth in the morning. CYANOCOBALAMIN, VITAMIN B-12, (VITAMIN B-12 ORAL) Take by mouth daily. DEXLANSOPRAZOLE (DEXILANT) 60 MG CAPSULE Take by mouth. DICLOFENAC SODIUM (VOLTAREN) 1 % GEL Apply to area(s) as needed for Pain (scale 7-10) or Pain (scale 4-6). DILTIAZEM 120 MG TABLET Take 1 tablet by mouth in the morning and 1 tablet at noon and 1 tablet in the evening. HYDROCHLOROTHIAZIDE 25 MG TABLET Take 1 tablet by mouth in the morning. INSULIN DEGLUDEC 200 UNIT/ML (3 ML) INPN inject 26 Units under the skin daily. INSULIN LISPRO (HUMALOG KWIKPEN INSULIN) 100 UNIT/ML PEN INJECTOR inject under the skin 3 (three) times daily before meals, est 40 units/day. INSULIN NEEDLES, DISPOSABLE, (BD ULTRAFINE III MINI PEN) 31 GAUGE X 3/16" NDLE 4 (four) times daily. MULTI-VITAMIN ORAL 1 daily VITAMIN C 500 MG ORAL TAB 1 daily START taking Modified Medications as Prescribed No medications on file STOP taking these medications No medications on file Follow-up: Electronically signed by: Jesusita Owen DO 07/16/23 1145 [facility] 2023-07-12 16:37:39 Images from the original note were not included. Received order form from [employer], form has been signed by provider and faxed Received confirmation receipt IE De La Rosa LVN [facility] 2023-06-09 12:14:30 Received fax from [facility] requesting [facility] chart notes. Faxed [facility] chart notes from 05/18/23. Received confirmation receipt [facility] 2022-08-23 10:05:00 [facility] Clinical Note REPORT#:[id number] REPORT STATUS: Signed DATE:08/23/22 TIME: 1005 PATIENT: TALIB TRUONG UNIT #: [id number] ROOM/BED: O20-A : 53 AGE: 67 SEX: F ATTEND: Maverick Pringle MD ADM AUTHOR: Charlie Cueva MD * ALL edits or amendments must be made on the electronic/computer document * Clinical Note Note: [facility] Charlie Alvares M.D. (cell text [phone]) Assessment/Plan 1.) Anemia of acute blood loss- .Hgb 10.9 , asymptomatic. 2.) S/p Right RSA- .acute multi-modal pain control and followup. Anticoagulation as per Dr. Pringle. 3.) Hypertension- .follow BP and hold Rxs if SBP<120. 4.) Diabetes-2 GERD OsteoArthritis Hyperlipidemia- .continue on Rx. * OK for DISCHARGE per Internal Medicine. Prior Events/Overnight: Uneventful. Chief Complaint: No significant complaints. Objective Vital Signs: Date Time Temp Pulse Resp B/P B/P Pulse O2 O2 Flow FiO2 Mean Ox Delivery Rate 08/23 0800 94 Room air 08/23 0724 97.0 103 12 115/67 82.8 98 Room air 08/23 0419 97.5 99 16 112/68 82.3 97 Nasal cannula 08/23 0335 97 Nasal 2 28 cannula 08/22 2234 98.2 102 14 112/70 83.6 98 Nasal [...] in mild discomfort Neck: No Masses, No Thyromegaly- CV: Regular Rate Rhythm / Edema- no significant Resp: Clear To Ascultation / Normal Respiratory Effort ABD: NonTender / NonDistended MS/Skin: No sign of compartment syndrome / shoulder dressing dry, clean Other arm in sling, normal capillary refill operative [...] (Auto) (20 - 40 %) 15.5 L [place] % (Auto) (3 - 10 %) 9.2 Eos % (Auto) (1 - 5 %) 0.3 L Baso % (Auto) (0.0 - 1.1 %) 0.2 Neut # (Auto) (2.00 - 7.50 K/mm3) 8.73 H Lymph # (Auto) (1.50 - 4.00 K/mm3) 1.81 [place] # (Auto) (0.2 - 0.8 K/mm3) 1.08 H Eos # (Auto) (0.04 - 0.4 K/mm3) 0.03 L Baso # (Auto) (0.02 - 0.10 K/mm3) 0.02 Add Manual Diff (MANUAL DIFF) NO Nucleated RBC % (0 - 0 %) 0 Charlie Alvares M.D. at 1210 RPT #:[id number] END OF REPORT [facility] 2022-08-23 07:59:00 [facility] Pain Management Progress Note REPORT#:[id number] REPORT STATUS: Signed DATE:08/23/22 TIME: 758 PATIENT: TALIB TRUONG UNIT #: [id number] ROOM/BED: [address] : 53 AGE: 67 SEX: F ATTEND: Maverick Pringle MD ADM AUTHOR: Isi Cantor GROUP INSURANCE SPECIALIST * ALL edits or amendments must be made on the electronic/computer document * Subjective Chief complaint: RIGHT SHOULDER PAIN S/P RT TSA Comments: Hematology: 08/23 0500 Hematology WBC (5.8 - 11.0 [...] 08/23 0335 97 Nasal 2 28 cannula 08/224 36.8 102 14 112/70 83.6 98 Nasal cannula 08/22 2206 96 Nasal 2 28 cannula 08/22 2044 Nasal 2 cannula History: PMH:IDDM, HTN, TACHYCARDIA, MA, EXSMOKER POD:1 MD who placed block: DR. FABIAN Type of block: IS S/S Time block wore off: 0300 Activity status:AMBULATING, TOLERATING DIET, PASSING FLATUS Pain: CONTROLLED Physical Exam: VAS: 4 LOS: 1 Resp Quality: 1 Side Effects: NONE MOTOR MVMT AND STRENGTH INTACT TO HAND Plan: BLOCK FOLLOW UP at 0801 [facility] #:[id number] END OF REPORT [facility] 2022-08-23 06:50:00 [facility] Discharge Summary REPORT#:[id number] REPORT STATUS: Signed DATE:08/23/22 TIME: 0650 PATIENT: TALIB TRUONG UNIT #: [id number] ROOM/BED: [address] : 53 AGE: 67 SEX: F ATTEND: Maverick Pringle MD ADM AUTHOR: Hany Cardona DO * ALL edits or amendments must be made on the electronic/computer document * General Information Discharge date: 08/23/22 Discharge diagnosis: R PHF MALUNION Hospital course: Discharge Diagnosis: R PHF MALUNION Discharge: Home Pt Condition: Stable Activity: Ambulate with Assistance Diet as tolerated Sig Findings: uneventful course Treatment Rendered: R RSA Prescriptions: On chart Special Instructions: REMAIN IN SLING Follow- up appointment: 2 Week(s) Brief Hospital Course The patient underwent the above procedure on their admission date without complication. Postoperatively they were transferred to the orthopedic patient care unit. They received 24hrs postoperative antibiotics. They were transitioned from IV to oral pain medications with good control at discharge. They were placed in a sling and worked on elbow/wrist ROM and ADLs with PT. Once patient met all criteria they were deemed appropriate for discharge. They had no other complications during the visit. Med Rec Med Rec Discharge meds: Stop taking the following medications: traMADol (ULTRAM) 50 MG TAB 50 MILLIGRAM ORAL EVERY 6 HOURS NEEDED. as needed for ACUTE PAIN Continue taking these medications: HYDROCHLOROTHIAZIDE (HYDRODIURIL) 25 MG TAB 25 MILLIGRAM ORAL [...] NEEDED. as needed for NAUSEA/VOMITING Discharge Instructions PCP )( Discharge to: Home/Self Care Discharge Instructions Additional Discharge Routines: Attending Follow-Up )( Diet: Regular )( Activity: REMAIN IN SLING Follow-up Appointments Attending Physician: Attending Physician: Maverick Pringle MD at 0650 RPT #:[id number] END OF REPORT [facility] 2022-08-23 06:47:00 [facility] Orthopaedic Progress Note REPORT#:[id number] REPORT STATUS: Signed DATE:08/23/22 TIME: 0647 PATIENT: TALIB TRUONG UNIT #: [id number] ROOM/BED: O20-A : 53 AGE: 67 SEX: F ATTEND: Maverick Pringle MD ADM AUTHOR: Hany Cardona DO * ALL edits or amendments must be made on the electronic/computer document * Subjective Comments: Subjective: Patient is alert, oriented, and resting comfortably. Tolerating PO intake well. Pain is tolerable. Denies CP or SOB. Denies Numbness, tingling or weakness. Objective: R Shoulder- dressing is clean, dry, and intact. Arm in sling. Sensation intact to Axillary, radial, median, ulnar nerves Able to fire deltoid Intact motor function in radial, median, ulnar nerves Radial pulse palpable Laboratory Tests 08/23/22 0500: [Embedded Image Not Available] Vital Signs: Date Time Temp Pulse Resp [...] - Post op day #1 MEDICINE ON CONSULT May discharge home when ready from orthopedic standpoint Follow up in office with physician in 2 week(s). Prescription for pain control in chart. at 0648 RPT #:[id number] END OF REPORT [facility] 2022-08-22 16:49:00 [facility] ([facility]) Clinical Note REPORT#:[id number] REPORT STATUS: Signed DATE:08/22/22 TIME: 164 PATIENT: TALIB TRUONG UNIT #: [id number] ROOM/BED: O20-A : 53 AGE: 67 SEX: F ATTEND: Maverick Pringle MD ADM AUTHOR: Charlie Cueva MD * ALL edits or amendments must be made on the electronic/computer document * Clinical Note Note: [facility] Charlie Alvares MD (cell text [phone]) Internal Medicine Consult at request of : Dr. Maverick Pringle. Chief Complaint: shoulder pain HPI: 67 yo F is now s/p Right Reverse total Shoulder Arthroplasty (RSA) by Dr. Pringle. Ms. Truong relates months of worsening right shoulder pain (recently severe), worse with activity, and with stiffness limitation in motion. She has failed conservative management. Comorbidities: see below. PmHx: Hypertension, Myocardial infarction, osteoarthritis, cataracts, hyperlipidemia, GERD, diabetes, constipation, tachycardia, sciatica, diabetic neuropathy, insomnia. BMI 30.4 ALLERGY: Allergies: vancomycin (Coded, Severe, ANAPHYLAXIS, 12/27/21) Home Medications: Home Medications: DILTIAZEM (CARDIZEM) 120 MG PO DAILY INSULIN DEGLUDEC [...] (HYDRODIURIL) 25 MG PO DAILY DEXLANSOPRAZOLE DR FrenchDEXILANT) 60 MG PO DAILY ALISKIREN (TEKTURNA) 150 MG PO DAILY methocarbamoL (ROBAXIN) 750 MG PO TID SgHx: Tonsillectomy, hysterectomy, hernia repair, elbow repair, angioplasty, cholecystectomy, recurring cyst in breast removal. SHx: Tob: former FHx: .No significant hx of DVT/PE. Alcohol: none Drugs: none Lives: with son . . Vitals: Vital Signs: Date Time Temp Pulse Resp [...] 18 146/67 98 Gen: Alert, in mild discomfort. EYE: Nl lids conjunctiva. ENT: Nl ears Nose, nl lips,. Neck: No masses CV: Regular Rate Rhythm, no heave or significant murmur. Edema- none RESP: Clear to Auscultation, normal Respiratory effort. ABD: Soft, NonDistended,. MS/Skin: No sign of compartment syndrome / shoulder dressing dry, clean Other arm in sling, normal capillary refill operative side digits. . . Preop Labs(08/10/22): CBC:. Hgb 13.0, Plt 277, CHEM: Na 139, K 4.3 , Cr 0.51 (eGFR 101.0%), . Ekg: NSR . (medium to high risk of complications or morbidity) (major surgery) (IV sedative, meds) . Assessment Plan 1.) Anemia of Acute Blood Loss- .will recheck tomorrow. 2.) S/p Right RSA- .acute multi-modal pain control and followup. Anticoagulation as per Dr. Pringle. 3.) Hypertension- .follow BP and hold Rxs if SBP<120. 4.) Diabetes-2 GERD OsteoArthritis Hyperlipidemia- .continue on Rx. . Charlie Alvares M.D. Thanks! . . G8417 BMI documented as above normal parameters and a f/u plan is documented G9903 - Patient screened for tobacco use AND identified as a tobacco non-user 1123F - ACP disscussion - default code status while at [facility]. at 2136 RPT #:[id number] END OF REPORT [facility] 2022-08-22 14:56:00 [id number] [facility] [address] [place] [place] [address] PATIENT NAME: TALIB TRUONG ADMIT DATE: 08/22/22 ACCOUNT NO: [id number] ROOM NO: Y.O20 AGE: 67 REPORT TYPE: OPERATIVE REPORT SEX: F ADMITTING PHYSICIAN:Maverick Pringle MD ATTENDING PHYSICIAN:Maverick Pringle MD OPERATION DATE: 08/22/2022 PREOPERATIVE DIAGNOSES: 1. Right shoulder pain. 2. Right shoulder proximal humerus fracture malunion. 3. Right shoulder rotator cuff tear. 4. Right shoulder osteoarthritis. POSTOPERATIVE DIAGNOSIS: 1. Right shoulder pain. 2. Right shoulder proximal humerus fracture malunion. 3. Right shoulder rotator cuff tear. 4. Right shoulder osteoarthritis. PROCEDURE: Right reverse shoulder arthroplasty for proximal humerus malunion, CPT code 25009, modifier 22. SURGEON: Maverick Pringle M.D. PLANT CARE WORKER: Dave Vick M.D. Brennan was medically necessary for the procedure and retraction of vital neurovascular structures throughout this case including protection of the axillary artery, nerve as well as structures of the brachial plexus through this complex reconstructive procedure with abnormal anatomy. Additionally, this is not a teaching hospital. There were no residents available for assistance. SECOND PLANT CARE WORKER: Hany Cardona D.O. ANESTHESIA: General plus interscalene block. IV FLUIDS: Per Anesthesia. ESTIMATED BLOOD LOSS: 300 mL. COUNTS: Recorded as correct. COMPLICATIONS: There were no apparent complications. SPECIMENS: None. DRAINS: None. PATIENT NAME: TALIB TRUONG FINDINGS: Osteoporotic bone with a varus malunion of the proximal humerus in acceptable reconstruction of the joint after shoulder arthroplasty. IMPLANTS USED: A 25 x 6 mm lateral baseplate with peripheral superior and inferior screw as well as a 36+0 glenosphere, and on the humeral side a DJO 10 x 108 mm small shell humeral component with a [...] The fat stripe was found at the inferior border of the clavicle. The cephalic vein was identified and retracted medially off the anterior rolled edge of the deltoid with meticulous hemostasis. The clavipectoral fascia was opened into the lateral border of the conjoined tendon, subcoracoid, subacromial, and subdeltoid spaces were then swept of loose debris and adhesions. A Castillo retractor was placed. We could begin to see the varus nature of the malunion in this position. We then tenodesed the long head of the biceps to the superior border of the pectoralis major with a #2 Ethibond suture and then tenotomized it proximally and used as a guide to open the rotator cuff interval. A subscapularis peel was performed and the humeral capsule of the glenohumeral joint was released off the humerus from anteriorly to the 6 o'clock position. The shoulder was then dislocated. A head [...] we had to take our time to resect and to dissect the axillary nerve off of the extensive adhesions in order to get a better arc of motion in the shoulder. This capsular resection as well as bone PATIENT NAME: TALIB TRUONG preparation on the humeral side that was extensive given the nature of the malunion took greater than 45 minutes relative to a standard reverse shoulder arthroplasty procedure, necessitating a 22 modifier. We then began drilling for our bicortical drill bit in 10 degrees of inferior tilt for DJO glenoid component. We placed a bicortical drill followed by a tap. The tap did not receive good purchase bicortically. So at that point, we elected to be along the DJO implant on the glenoid side and instead we switched to a 28 implant. We drilled a center bicortical pin followed by a boss reamer. At this point, there was a posterior fracture of the glenoid. Intraoperatively, [...] then placed a 36 neutral glenosphere onto the Burdick taper and fully locked the set screw. [...] was used with pulse lavage. Two grams of vancomycin powder placed. The periarticular injection was placed. Layered closure was performed. An Aquacel dressing was placed. The patient was placed in UltraSling and transferred off the operating table in stable condition without any apparent complications. Dictated By: Maverick Pringle MD Date Dictated: 08/22/2022 14:56:18 Date Transcribed: 08/22/2022 16:52:28 [facility] [place] Receipt ID: [id number] Authenticated by Maverick Pringle MD On 08/29/2022 06:40:02 AM at 0640 PATIENT NAME: TALIB TRUONG [facility] 2022-08-10 15:32:00 [id number] [place] [address] PATIENT NAME: TALIB TRUONG ADMIT DATE: ACCOUNT NO: [id number] ROOM NO: AGE: 67 REPORT TYPE: ELECTROCARDIOGRAM SEX: F ADMITTING PHYSICIAN: ATTENDING PHYSICIAN:Maverick Pringle MD Order: [id number] Test Reason : CLEARANCE FOR SURGERY HX. HTN HEART ATTACK Test Date/Time Stamp: MonAug 10 2022 15:32:46 Blood Pressure : / mmHG Vent. Rate : 088 BPM Atrial Rate : 088 BPM P-R Int : 140 ms QRS Dur : 092 ms QT Int : 386 ms P-R-T Axes : 065 065 056 degrees QTc Int : 467 ms Normal sinus rhythm Normal ECG No previous ECGs available Confirmed by HALEY OSBORN MD ([id number]) on 08/12/2022 8:39:57 PM Referred By: Maverick Pringle Confirmed by:HALEY OSBORN MD PATIENT NAME: TALIB TRUONG [facility] 2021-12-28 12:57:00 [id number] [place] [address] PATIENT NAME: TALIB TRUONG ADMIT DATE: 12/27/21 ACCOUNT NO: [id number] ROOM NO: AGE: 66 REPORT TYPE: CONSULTATION REPORT SEX: F ADMITTING PHYSICIAN: ATTENDING PHYSICIAN:Tyron Dotson MD CONSULTATION DATE: 12/27/2021 CONSULTING PHYSICIAN: Tyron Dotson MD EMERGENCY ROOM CONSULTATION HISTORY OF PRESENT ILLNESS: She has a chief complaint of right shoulder pain. She is right-handed. She was at a concert on Monday and fell onto her back and hit her head and her right shoulder. She was seen in an urgent care and given some Tylenol with Codeine that are causing her nausea and vomiting. She reports a pain of 8/10. PAST MEDICAL HISTORY: Includes diabetes. PAST SURGICAL HISTORY: She has had surgery on the right elbow. SOCIAL HISTORY: She is a nonsmoker. CURRENT MEDICATIONS: Reviewed and documented in the EMR. PHYSICAL EXAMINATION: GENERAL: She is alert and in no acute distress. HEAD: Normocephalic and atraumatic. HEART: Regular rate and rhythm. LUNGS: Clear. No signs of respiratory distress. ABDOMEN: Soft. NEUROLOGIC: She is neurovascularly intact in bilateral upper extremities. She does have ecchymosis noted in the right arm. She is tender in the proximal right arm. She has a palpable radial pulse on the right side. DIAGNOSTIC DATA: X-rays, two views, of the right shoulder were reviewed and show a proximal humerus fracture. It appears to be a two-part that is impacted. There is also hardware noted in her right elbow. CLINICAL IMPRESSION: Closed proximal humerus fracture. PLAN: She is going to continue sling immobilization. I gave her a prescription for Phenergan as well as tramadol for pain, and she is going to follow up with me next Monday. I thought this was amenable to closed treatment, which I explained to her and her friend that was present with her today. I also warned her that the bruising could get worse before it gets better and travel distally following gravity. PATIENT NAME: TALIB TRUONG Dictated By: Tyron Dotson MD WT: CON:YEMI/FELA/KHARI Conf#: [id number]/DID#: [id number] Authenticated by Tyron Dotson MD On 12/31/2021 07:54:21 AM at 0754 PATIENT NAME: TALIB TRUONG [facility]
--- NOTE | 2024-03-18 17:32 | RAD REPORT ---
EXAM DESCRIPTION: Emre Single View03/18/2024 5:23 pm CLINICAL HISTORY: Preop for hip surgery COMPARISON: 2021 FINDINGS: Lungs are mildly hyperaerated. The lungs appear clear of acute infiltrate. The heart is normal size IMPRESSION: No acute abnormalities displayed
--- NOTE | 2024-03-18 17:34 | RAD REPORT ---
EXAM DESCRIPTION: RAD - Hip Right 2 View - 03/18/2024 5:23 pm CLINICAL HISTORY: Right hip pain FINDINGS: Avulsion fracture lesser trochanter right femur. The fracture involves intertrochanteric a nd probably greater trochanter right femur. Varus angulation present at fracture site. No dislocation
[2024-03-18 17:36] LABS: Absolute Eosinophils 0.2 K/uL (0-0.5); Absolute Lymphocytes (CBC) 1.6 K/uL (0.7-4.9); Absolute Monocytes 0.5 K/uL (0.1-1.3); Absolute Neutrophil 4.6 K/uL (1.8-8.0); Basophils % 0.3 % (0-1.3); Eosinophils % 2.8 % (0-4.4); Hemoglobin 13.6 g/dL (12.0-15.0); Lymphocytes % 22.6 % (15.3-44.8); MCH 32.7 pg (27.0-35.0); MCHC 33.1 g/dL (32.0-36.0); MCV 98.8 fL (80-100); MPV 8.4 fL (7.6-11.3); Monocytes % 7.8 % (3.3-12.3); Neutrophils % 66.5 % (41.7-73.7); Platelets 266 thou/uL (152-406); RBC Red Blood Cell Count 4.15 M/uL (3.86-4.86)
[2024-03-18 17:45] LABS: Anion Gap 9.6 mEq/L (5.0-15.0); Magnesium 1.7 mg/dL (1.6-2.4); Potassium 3.6 mEq/L (3.5-5.1)
[2024-03-18 17:50] LABS: PT Prothrombin Time 11.3 SECONDS (9.4-12.5); Protime INR 1.01
--- NOTE | 2024-03-18 18:12 | ER ---
Nurse's Notes [facility] Name: Herminia Truong Age: 68 yrs Sex: Female : 1955 Arrival Date: 03/18/2024 Time: 16:37 Bed 5 Private MD: Diagnosis: Mechanical fall, right hip fracture intertrochanteric Presentation: 03/18 16:41 Chief complaint: EMS states: patient was walking outside when she tripped and fell on ko1 the right hip. Coronavirus screen: At this time, the client does not indicate any symptoms associated with coronavirus-19. Ebola Screen: No symptoms or risks identified at this time. Initial Sepsis Screen: Does the patient meet any 2 criteria? No. Patient's initial sepsis screen is negative. Does the patient have a suspected source of infection? No. Patient's initial sepsis screen is negative. Risk Assessment: Do you want to hurt yourself or someone else? Patient reports no desire to harm self or others. Onset of symptoms was March 18, 2024. Care prior to arrival: Medication(s) given: zofran 4 mg, fentanyl 50 mcg IV IV initiated. 22 GA, in the left wrist. 16:41 Method Of Arrival: EMS: [facility] ko1 16:41 Acuity: VELVET 2 ko1 Triage Assessment: 16:43 General: Appears in no apparent distress. uncomfortable, Behavior is calm, cooperative, ko1 appropriate for age. Pain: Complains of pain in lateral aspect of right thigh. Historical: - Allergies: 16:43 Vancomycin; ko1 - PMHx: 16:43 broke right arm; Diabetes - IDDM; Hyperlipidemia; Hypertension; ko1 - PSHx: 16:43 Cholecystectomy; heart cath; hernia; [place]; hysterectomy; right elbow replacement; ko1 - Immunization history:: Adult Immunizations up to date. - Infectious Disease History:: Denies. - Social history:: Smoking status: Patient denies any tobacco usage or history of. Screenin:44 [facility] ED Fall Risk Assessment (Adult) History of falling in the last 3 months, ko1 including since admission Yes- single mechanical fall (1 pt) Confusion or Disorientation No (0 pts) Intoxicated or Sedated No (0 pts) Impaired Gait No (0 pts) Mobility Assist Device Used No (0 pt) Altered Elimination No (0 pt) Score/Fall Risk Level 0 - 2 = Low Risk Oriented to surroundings, Maintained a safe environment, Educated pt \T\ family on fall prevention, incl call for assistance when getting out of bed, Assessed \T\ reinforced patient's understanding of fall precautions, Provided non-skid footwear, Hourly rounding (assess needs \T\ fall precautionary measures) done, Used ambulatory aids as needed (educated on \T\ assisted with), Used gait belt as appropriate. Abuse screen: Denies threats or abuse. Denies injuries from another. Nutritional screening: No deficits noted. Tuberculosis screening: No symptoms or risk factors identified. Assessment: 16:40 General: Appears in no apparent distress. uncomfortable, Behavior is calm, cooperative. rs5 Pain: Complains of pain in right hip Pain currently is 8 out of 10 on a pain scale. Quality of pain is described as aching, Is continuous. Neuro: Level of Consciousness is awake, alert, obeys commands, Oriented to person, place, time, situation. Cardiovascular: Patient's skin is warm and dry. Respiratory: Airway is patent Respiratory effort is even, unlabored, Respiratory pattern is regular, symmetrical. GI: Abdomen is round non-distended, Abd is soft and non tender X 4 quads. : No signs and/or symptoms were reported regarding the genitourinary system. EENT: No signs and/or symptoms were reported regarding the EENT system. Derm: Skin is intact, Skin is pink, warm \T\ dry. Musculoskeletal: Range of motion: limited in right leg. 16:44 Neuro: No deficits noted. Cardiovascular: No deficits noted. Respiratory: No deficits ko1 noted. GI: No deficits noted. : No deficits noted. EENT: No deficits noted. Derm: Bruising that is dark purple, on left forearm with abrasions. Musculoskeletal: Range of motion: limited in right leg. 17:06 Reassessment: Patient and/or family updated on plan of care and expected duration. Pain rs5 level reassessed. Patient is alert, oriented x 3, equal unlabored respirations, skin warm/dry/pink. Patient states feeling better. 18:01 Reassessment: Patient and/or family updated on plan of care and expected duration. Pain rs5 level reassessed. Patient is alert, oriented x 3, equal unlabored respirations, skin warm/dry/pink. 18:57 Reassessment: Patient and/or family updated on plan of care and expected duration. Pain rs5 level reassessed. Patient is alert, oriented x 3, equal unlabored respirations, skin warm/dry/pink. 20:48 Reassessment: FINGER STICK GLUCOSE 64,...PT GIVEN ORANGE JUICE AND CRACKERS. br2 21:14 Reassessment: PT STATES PAIN IS STILL 6/10. FINGER STICK GLUCOSE AT 67 AND PATIENT br2 GIVEN ANOTHER ORANGE JUICE. . Vital Signs: 16:41 BP 145 / 86; Pulse 95; Resp 16; Temp 97; Pulse Ox 98% ; ko1 18:03 BP 142 / 80; Pulse 88; Resp 17; Pulse Ox 99% on R/A; rs5 19:31 BP 136 / 75; Pulse 107; Resp 18; Temp 98.4; Pulse Ox 97% on R/A; Pain 6/10; br2 20:37 BP 119 / 64; Pulse 100; Resp 18; Pulse Ox 100% on R/A; br2 21:28 BP 128 / 82; Pulse 84; Resp 18; Temp 96.7(A); Pulse Ox 94% on R/A; br2 19:31 Pain Scale: Adult br2 ED Course: 16:38 Patient arrived in ED. sp3 16:38 Marni Arshad MD is Attending Physician. sp3 16:43 Triage completed. ko1 16:43 Arm band placed on right wrist. Patient placed in an exam room, on a stretcher, on ko1 manager cardiac cath, on pulse oximetry, Patient notified of wait time. 16:44 Patient has correct armband on for positive identification. Allergy band placed. Fall ko1 risk band placed. Bed in low position. Call light in reach. Side rails up X2. Provided Education on: labs, xrays. Client placed on continuous cardiac and pulse oximetry monitoring. NIBP monitoring applied. case monitor on. Door closed. Noise minimized. Lights dimmed. Warm blanket given. 16:44 Maintain EMS IV. Dressing intact. Site clean \T\ dry. Gauge \T\ site: 22g left wrist. ko 1 Flushed with 10 mL NS. 17:03 Main Arias, JENNIFER is Primary Nurse. rs5 17:04 EKG done, by ED staff, reviewed by Marni Arshad MD. ko1 17:25 XRAY Chest (1 view) In Process Unspecified. EDMS 17:25 Hip Right 2 View XRAY In Process Unspecified. EDMS 18:01 No provider procedures requiring assistance completed. rs5 18:10 Luisa Zaidi MD is Hospitalizing Provider. sp3 19:33 Report received from 1900 received report from day shift JENNIFER Lockett and Main, RN. br2 21:24 Patient admitted, IV remains in place. br2 Administered Medications: 16:45 Drug: morphine IVP or IV 4 mg IVP once over 4 mins Route: IVP; Infused Over: 4 mins; rs5 Site: left hand; 17:15 Follow up: Response: No adverse reaction rs5 16:45 Drug: Ondansetron IVP 4 mg IVP once; over 2 minutes Route: IVP; Site: left hand; rs5 17:10 Follow up: Response: No adverse reaction rs5 Medication: 17:06 VIS not applicable for this client. rs5 Outcome: 18:11 Decision to Hospitalize by Provider. sp3 21:13 Admitted to Med/surg br2 21:13 Admitted to Med/surg via stretcher, br2 21:13 Condition: stable 21:39 Instructed on follow up and referral plans. the need for admit, Demonstrated bm8 understanding of instructions, follow-up care, 21:58 Patient left the ED. bm8 Signatures: Dispatcher [employer] Marni Sparrow MD MD sp3 Maryann Nguyen RN RN ko1 Main Arias RN RN rs5 Mina Robertson RN RN bm8 Loraine Nayak RN RN br2
--- NOTE | 2024-03-18 18:12 | EDPHYS ---
Physician Documentation [facility] Name: Herminia Truong Age: 68 yrs Sex: Female : 1955 Arrival Date: 03/18/2024 Time: 16:37 Bed 5 Private MD: ED Physician Marni Arshad HPI: 03/18 18:04 This 68 yrs old Female presents to ER via EMS with complaints of Fall Injury. sp3 18:04 68-year-old female with history diabetes, hyperlipidemia, hypertension now presents sp3 with mechanical ground-level fall with injury to the right hip. She denies any other injury including headache, neck pain, back pain, chest pain, shortness of breath, any medical prodrome prior to the event, or any other signs or symptoms on ROS at this time.. Historical: - Allergies: 16:43 Vancomycin; ko1 - PMHx: 16:43 broke right arm; Diabetes - IDDM; Hyperlipidemia; Hypertension; ko1 - PSHx: 16:43 Cholecystectomy; heart cath; hernia; [place]; hysterectomy; right elbow replacement; ko1 - Immunization history:: Adult Immunizations up to date. - Infectious Disease History:: Denies. - Social history:: Smoking status: Patient denies any tobacco usage or history of. ROS: 18:08 Constitutional: Negative for fever, chills, and weight loss, Eyes: Negative for injury, sp3 pain, redness, and discharge, Neck: Negative for injury, pain, and swelling, Cardiovascular: Negative for chest pain, palpitations, and edema, Respiratory: Negative for shortness of breath, cough, wheezing, and pleuritic chest pain, Abdomen/GI: Negative for abdominal pain, nausea, vomiting, diarrhea, and constipation, Back: Negative for injury and pain, Neuro: Negative for headache, weakness, numbness, tingling, and seizure, Psych: Negative for depression, anxiety, suicide ideation, homicidal ideation, and hallucinations, Allergy/Immunology: Negative for hives, rash, and allergies, Endocrine: Negative for neck swelling, polydipsia, polyuria, polyphagia, and marked weight changes, 18:08 All other systems are negative, Exam: 18:09 Constitutional: This is a well developed, well nourished patient who is awake, alert, sp3 and in no acute distress. Head/Face: Normocephalic, atraumatic. Eyes: Pupils equal round and reactive to light, extra-ocular motions intact. Lids and lashes normal. Conjunctiva and sclera are non-icteric and not injected. Cornea within normal limits. Periorbital areas with no swelling, redness, or edema. Neck: Trachea midline, no thyromegaly or masses palpated, and no cervical lymphadenopathy. Supple, full range of motion without nuchal rigidity, or vertebral point tenderness. No Meningismus. Chest/axilla: Normal chest wall appearance and motion. Nontender with no deformity. No lesions are appreciated. Cardiovascular: Regular rate and rhythm with a normal S1 and S2. No gallops, murmurs, or rubs. Normal PMI, no JVD. No pulse deficits. Respiratory: Lungs have equal breath sounds bilaterally, clear to auscultation and percussion. No rales, rhonchi or wheezes noted. No increased work of breathing, no retractions or nasal flaring. Abdomen/GI: Soft, non-tender, with normal bowel sounds. No distension or tympany. No guarding or rebound. No evidence of tenderness throughout. Back: No spinal tenderness. No costovertebral tenderness. Full range of motion. Skin: Warm, dry with normal turgor. Normal color with no rashes, no lesions, and no evidence of cellulitis. Neuro: Awake and alert, GCS 15, oriented to person, place, time, and situation. Cranial nerves II-XII grossly intact. Motor strength 5/5 in all extremities. Sensory grossly intact. Cerebellar exam normal. Normal gait. Psych: Awake, alert, with orientation to person, place and time. Behavior, mood, and affect are within normal limits. 18:09 Musculoskeletal/extremity: Right hip pain, shortening and external rotation. Neurovascularly intact distally.. 18:29 ECG was reviewed by the Attending Physician. EKG demonstrates normal sinus rhythm at 92 sp3 bpm with normal intervals, normal QRS, normal axis, nonspecific diffuse ST changes without evidence of acute ischemia with occasional PVC as well. Vital Signs: 16:41 BP 145 / 86; Pulse 95; Resp 16; Temp 97; Pulse Ox 98% ; ko1 18:03 BP 142 / 80; Pulse 88; Resp 17; Pulse Ox 99% on R/A; rs5 19:31 BP 136 / 75; Pulse 107; Resp 18; Temp 98.4; Pulse Ox 97% on R/A; Pain 6/10; br2 20:37 BP 119 / 64; Pulse 100; Resp 18; Pulse Ox 100% on R/A; br2 21:28 BP 128 / 82; Pulse 84; Resp 18; Temp 96.7(A); Pulse Ox 94% on R/A; br2 19:31 Pain Scale: Adult br2 MDM: 16:38 Patient medically screened. sp3 18:09 Data reviewed: vital signs, nurses notes, lab test result(s), EKG, radiologic studies. sp3 ED course: Differential diagnosis is right hip contusion versus fracture. Clinically mildly suspicious of fracture. Full cardiac workup, cardiac clearance labs and x-ray ordered. X-ray demonstrates right intertrochanteric fracture. Discussed with Dr. Sue who will see her in consultation with probable surgery planned for Monday. Will admit to hospitalist medicine for clearance.. 03/18 16:39 Order name: Basic Metabolic Panel; Complete Time: 17:53 [facility] 03/18 16:39 Order name: CBC with Diff; Complete Time: 17:53 3 03/18 16:39 Order name: Magnesium; Complete Time: 17:53 3 03/18 16:39 Order name: NT PRO-BNP; Complete Time: 17:53 [facility] 03/18 16:39 Order name: PT-INR; Complete Time: 17:53 3 03/18 16:39 Order name: Troponin HS; Complete Time: 17:53 [facility] 03/18 19:58 Order name: Creatine Phosphokinase [facility] 03/18 19:58 Order name: CBC with Automated Diff [facility] 03/18 19:58 Order name: CBC with Automated Diff [facility] 03/18 19:58 Order name: Comprehensive Metabolic Panel [facility] 03/18 19:58 Order name: Comprehensive Metabolic Panel [facility] 03/18 19:58 Order name: Lipid Profile [facility] 03/18 19:58 Order name: Lipid Profile [facility] 03/18 19:58 Order name: Troponin High Sensitivity [facility] 03/18 19:58 Order name: Troponin High Sensitivity [facility] 03/18 20:00 Order name: Thyroid Stimulating Hormone [facility] 03/18 20:00 Order name: Magnesium [facility] 03/18 20:00 Order name: Magnesium [facility] 03/18 20:00 Order name: Magnesium [facility] 03/18 20:00 Order name: Magnesium [facility] 03/18 20:54 Order name: Glucose, Ancillary Testing [facility] 03/18 21:32 Order name: Glucose, Ancillary Testing [facility] 03/18 16:39 Order name: XRAY Chest (1 view); Complete Time: 17:53 sp3 03/18 16:39 Order name: Hip Right 2 View XRAY; Complete Time: 17:53 sp3 03/18 16:39 Order name: EKG; Complete Time: 16:39 sp3 03/18 19:58 Order name: CONS Physician Consult [facility] 03/18 16:39 Order name: Cardiac monitoring; Complete Time: 16:40 sp3 03/18 16:39 Order name: EKG - Nurse/Tech; Complete Time: 17:03 sp3 03/18 16:39 Order name: IV Saline Lock; Complete Time: 16:40 sp3 03/18 16:39 Order name: Labs collected and sent; Complete Time: 17:03 sp3 03/18 16:39 Order name: O2 Per Protocol; Complete Time: 16:40 sp3 03/18 16:39 Order name: O2 Sat Monitoring; Complete Time: 16:40 sp3 03/18 16:39 Order name: NPO; Complete Time: 16:40 sp3 Administered Medications: 16:45 Drug: morphine IVP or IV 4 mg IVP once over 4 mins Route: IVP; Infused Over: 4 mins; rs5 Site: left hand; 17:15 Follow up: Response: No adverse reaction rs5 16:45 Drug: Ondansetron IVP 4 mg IVP once; over 2 minutes Route: IVP; Site: left hand; rs5 17:10 Follow up: Response: No adverse reaction rs5 Disposition Summary: 03/18/24 18:11 Hospitalization Ordered Notes: Hospitalization Status: Inpatient Admission sp3 Provider: Luisa Zaidi sp3 Location: Telemetry/[facility] (Inpatient) sp3 Condition: Stable sp3 Problem: new sp3 Symptoms: are unchanged sp3 Bed/Room Type: Standard sp3 Room Assignment: 409(03/18/24 20:34) kl Diagnosis - Mechanical fall, right hip fracture intertrochanteric sp3 Forms: - Medication Reconciliation Form sp3 - SBAR form sp3 - Leadership Thank You Letter sp3 Signatures: Dispatcher [employer] Shima Carter, RN RN Marni Coe MD MD sp3 Maryann Nguyen RN RN ko1 Main Arias RN RN rs5 Loraine Nayak RN RN br2 Corrections: (The following items were deleted from the chart) 20:34 18:11 sp3 rajat
[2024-03-18] MEDS ORDERED: ALBUTEROL 2.5 MG/3 ML NEB SOL NEB PRN (19:51)
[2024-03-18] MEDS ORDERED: MORPHINE 2 MG/ML SYR IV PRN (19:51)
--- NOTE | 2024-03-18 19:51 | P.HP ---
Certification for Inpatient With expected LOS: >2 Midnights Patient will require the following post-hospital care: Rehabilitation Practitioner: I am a practitioner with admitting privileges, knowledge of patient current condition, hospital course, and medical plan of care. Services: Services provided to patient in accordance with Admission requirements found in Title 42 Section 412.3 of the Code of Federal Regulations Patient History Date of Service: 03/18/24 Reason for admission: Right hip pain History of Present Illness: 68-year-old female with past medical history of HTN, DM type II, history of CADstatus post PCI x 1 in 1990, follows with cardiology Dr. Seals, states recent abnormal stress test and scheduled for cardiac cath later this month, but denies chest pain at rest, presented after sustaining a fall this afternoon. Patient states she was walking to the back door of her house and she tripped on some stones. She fell landing on her right side and developed inability to move the right leg with pain. She was brought by the EMS to the emergency room. She denies any loss of consciousness, head injury, chest pain or shortness of breath. She describes similar for about 2 years ago for which she sustained a right upper extremity fracture. Arrival in the ED vital signs were stable, chest x-ray shows clear lungs, x-ray of the right hip show acute fracture of the femoral neck. CBC and BMP were unremarkable. EKG showed normal sinus rhythm,, normal Q TC interval, no ST segment changes. Dr. Sue orthopedics has been discussed with and plan for surgery on Monday. Allergies vancomycin Allergy (Verified 08/20/17 20:12) Anaphylaxis VANCOMYCIN AND DERIVATIVES Allergy (Uncoded 08/20/17 20:12) Unknown Home Medications: Aspirin 81 mg PO DAILY 05/01/15 Atorvastatin Calcium [Lipitor] 40 mg PO BEDTIME 05/01/15 Docusate [Colace Cap*] 100 mg PO DAILY 05/01/15 Insulin Lispro [Humalog] 1 unit SQ ACHSPRN PRN 05/01/15 Sertraline [Zoloft*] 100 mg PO DAILY 05/01/15 Ascorbic Acid [Vitamin C] 1,000 mg PO DAILY 08/20/17 Cholecalciferol (Vitamin D3) [Vitamin D 5,000 IU Cap*] 5,000 unit PO DAILY 08/20/17 Cyclobenzaprine [Flexeril*] 10 mg PO BID 08/20/17 Dexlansoprazole [Dexilant] 60 mg PO DAILY 08/20/17 Hydrocodone Bit/Acetaminophen [[place] 10-325 Tablet] 1 each PO QIDP PRN 08/20/17 Multivitamin [Daily Multiple Vitamin] 1 each PO DAILY 08/20/17 Trazodone HCl 100 mg PO BEDTIME PRN PRN 08/20/17 Valsartan 80 mg PO DAILY 08/20/17 hydroCHLOROthiazide [Hydrochlorothiazide] 25 mg PO DAILY 08/20/17 Insulin Glargine,Hum.rec.anlog [Lantus] 5 units SQ BEDTIME #1 ml 08/21/17 Insulin Glargine,Hum.rec.anlog [Lantus] 10 units SQ AMB AD TUSHAR #1 ml 08/21/17 - Past Medical/Surgical History Diabetic: Yes -: DM-IDDM -: [place] -: HTN -: Arthritis -: peripheral neuropathy -: hypokalemia -: hernia repair -: cholecystectomy -: angioplasty -: tonsillectomy -: hysterectomy - Family History Family History: Reviewed- Non-Contributory - Social History Smoking Status: Never smoker Smoking therapy provided: No Patient receptive to therapy: No Alcohol use: No CD- Drugs: No Caffeine use: No Place of Residence: Home Review of Systems Musculoskeletal: Leg Pain Physical Examination - Physical Exam General: Alert, In no apparent distress, Oriented x3 HEENT: Atraumatic, Normocephalic, PERRLA, Mucous membr. moist/pink Neck: Supple, 2+ carotid pulse no bruit, JVD not distended Respiratory: Clear to auscultation bilaterally, Normal air movement Cardiovascular: Normal pulses, Regular rate/rhythm, Normal S1 S2 Capillary refill: <2 Seconds Gastrointestinal: Normal bowel sounds, Soft and benign, Non-distended, W/out succussion splash, No ascites, No tenderness Musculoskeletal: Tenderness (Of right hip extending to the mid thigh,) Integumentary: No rashes, No breakdown, No significant lesion Neurological: Normal speech, Normal strength at 5/5 x4 extr, Normal tone, Sensation intact, Cranial nerves 3-12 intact - Studies Laboratory Data (last 24 hrs) 03/18/24 03/18/24 03/18/24 17:00 17:00 17:00 WBC 7.00 Hgb 13.6 Hct 41.0 Plt Count 266 PT 11.3 INR 1.01 Sodium 139 Potassium 3.6 BUN 20 H Creatinine 0.80 Glucose 77 Magnesium 1.7 Assessment and Plan - Problems (Diagnosis) (1) Closed right hip fracture Current Visit: Yes Status: Acute - Plan Impression Right hip fracturedue to accidental fall History of abnormal stress test Hypertension DM Plan Right hip fractureOrtho consulted Pain control PT and OT Follow cardiac clearance presurgery EKG within normal range History of abnormal stress testprevious history of CAD status post stenting 1990 noted, recent abnormal stress test with judicial administrative assistant Consult Dr. seals for cardiac clearance Follow serial set of cardiac enzymes although asymptomatic Resume aspirin for now Hypertensioncontrolled DMinsulin sliding scale with Accu-Cheks Resume home regimen DVT prophylaxissubcutaneous Lovenox Advance directivediscussed with patient wishes to be full code Total time spent in evaluation discussion with patient greater than 70 minutes. Plan to discharge in: Greater than 2 days - Advance Directives Does patient have a Living Will: No Does patient have a Durable POA for Healthcare: No
[2024-03-18] MEDS ORDERED: HYDRALAZINE HCL 20 MG/ML VIAL IV PRN (19:56)
[2024-03-18] MEDS ORDERED: MORPHINE 2 MG/ML SYR ONE (20:23)
[2024-03-18] MEDS: ONDANSETRON 4 MG/2 ML VIAL IV PRN (20:45)
[2024-03-18] MEDS: MORPHINE 2 MG/ML SYR IV PRN (20:45)
[2024-03-18] MEDS: INSULIN LISPRO 100 UNIT/1 ML SQ SCH (21:15)
[2024-03-18] MEDS: Oxycodone HCl/Acetaminophen 5/325 MG TAB PO PRN (22:45)
[2024-03-18] MEDS: FAMOTIDINE 20 MG TAB PO SCH (22:45)
[2024-03-19 01:52] LABS: Specific Gravity 1.024 (1.005-1.030); Sqamous Epithelial <5 /HPF (None Seen); Urine Bacteria None Seen /HPF (<20); Urine Bilirubin NEGATIVE (Negative); Urine Blood Negative (Negative); Urine Clarity Clear (Clear); Urine Color Light-Yellow (Yellow); Urine Culture Reflex Order NOT NEEDED; Urine Glucose 4+ (Negative); Urine Ketones 1+ (Negative); Urine Microscopic Reflex YN ORDER UMIC; Urine Mucus Slight /HPF (None Seen); Urine Nitrite NEGATIVE (Negative); Urine Protein NEGATIVE (Negative); Urine RBC None Seen /HPF (None Seen); Urine Urobilinogen Normal (Normal); Urine pH 6.5 (5.0-7.0)
[2024-03-19 06:38] LABS: Absolute Eosinophils 0.1 K/uL (0-0.5); Absolute Monocytes 0.6 K/uL (0.1-1.3); Absolute Neutrophil 5.3 K/uL (1.8-8.0); Basophils % 0.5 % (0-1.3); Eosinophils % 1.2 % (0-4.4); Hematocrit 35.6 % (36.0-45.0); Lymphocytes % 14.9 % (15.3-44.8); MCH 33.1 pg (27.0-35.0); MCHC 33.8 g/dL (32.0-36.0); MCV 97.7 fL (80-100); MPV 8.3 fL (7.6-11.3); Monocytes % 8.8 % (3.3-12.3); Neutrophils % 74.6 % (41.7-73.7); Nucleated Red Blood Cells % 0.1 % (0-0); Platelets 238 thou/uL (152-406); RBC Red Blood Cell Count 3.64 M/uL (3.86-4.86)
[2024-03-19 06:55] LABS: Albumin 3.1 g/dL (3.4-5.0); Anion Gap 8.7 mEq/L (5.0-15.0); Bilirubin Total 0.4 mg/dL (0.2-1.0); Magnesium 1.6 mg/dL (1.6-2.4); Potassium 3.7 mEq/L (3.5-5.1); Protein, Total 6.1 g/dL (6.4-8.2); Thyroid Stimulating Hormone 1.39 uIU/mL (0.358-3.740); Troponin High Sensitivity 6.3 pg/mL (<58.9)
[2024-03-19] MEDS: ENOXAPARIN 40 MG/0.4 ML SQ SCH (08:26)
[2024-03-19] MEDS: MONTELUKAST 10 MG TAB PO SCH (08:26)
[2024-03-19] MEDS: DILTIAZEM HCL 120 MG SR CAP PO SCH (08:26)
[2024-03-19] MEDS: ASPIRIN EC 81 MG TAB PO SCH (08:27)
[2024-03-19] MEDS ORDERED: INSULIN LISPRO 100 UNIT/1 ML SQ SCH ×2 (08:50→11:30)
[2024-03-19] MEDS: INSULIN LISPRO 100 UNIT/1 ML SQ SCH (09:10)
--- NOTE | 2024-03-19 12:22 | P.CNS ---
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 Allergies vancomycin Allergy (Verified 03/18/24 23:52) Anaphylaxis VANCOMYCIN AND DERIVATIVES Allergy (Uncoded 03/18/24 23:52) Anaphylaxis Home medications list reviewed: Yes Home Medications: Aspirin 81 mg PO DAILY 05/01/15 Atorvastatin Calcium [Lipitor] 40 mg PO BEDTIME 05/01/15 Docusate [Colace Cap*] 100 mg PO DAILY 05/01/15 Insulin Lispro [Humalog] 1 unit SQ ACHSPRN PRN 05/01/15 Ascorbic Acid [Vitamin C] 1,000 mg PO DAILY 08/20/17 Cholecalciferol (Vitamin D3) [Vitamin D 5,000 IU Cap*] 5,000 unit PO DAILY 08/20/17 Dexlansoprazole [Dexilant] 60 mg PO DAILY 08/20/17 Multivitamin [Daily Multiple Vitamin] 1 each PO DAILY 08/20/17 hydroCHLOROthiazide [Hydrochlorothiazide] 25 mg PO DAILY 08/20/17 Aliskiren Hemifumarate [T[place]turn[place]] 150 mg PO DAILY 03/18/24 Diclofenac Epolamine [Flector] 1 patch ID DAILY PRN 03/18/24 Diclofenac Sodium [Arthritis Pain Reliever] 50 gm TP Q8HP PRN 03/18/24 Insulin Degludec [Tresiba Flextouch U-100] 26 units SQ DAILY 03/18/24 Turmeric Root Extract [Turmeric] 2 cap PO BID 03/18/24 bisacodyL [Dulcolax] 10 mg PO BEDTIME 03/18/24 - Past Medical/Surgical History Diabetic: Yes -: DM-IDDM -: CT -: HTN -: Arthritis -: peripheral neuropathy -: hypokalemia -: gastroparesis -: hernia repair -: cholecystectomy -: angioplasty -: tonsillectomy -: hysterectomy - Family History Father Medical History: Heart disease Mother Medical History: Hypertension, Other (see notes) Notes: Alzheimer's - Social History Smoking Status: Unknown if ever smoked Alcohol use: Yes CD- Drugs: No Caffeine use: Yes Place of Residence: Home Review of Systems 10-point ROS is otherwise unremarkable Physical Examination Temp Pulse Resp BP Pulse Ox 97.1 F 88 16 115/56 L 95 03/19/24 08:00 03/19/24 08:26 03/19/24 08:00 03/19/24 08:26 03/19/24 08:00 General: Alert, In no apparent distress HEENT: Atraumatic, PERRLA, Mucous membr. moist/pink, EOMI, Sclerae nonicteric Neck: Supple, 2+ carotid pulse no bruit, No LAD, Without JVD or thyroid abnormality Respiratory: Clear to auscultation bilaterally, Normal air movement Cardiovascular: Regular rate/rhythm, Normal S1 S2 Gastrointestinal: Normal bowel sounds, No tenderness Musculoskeletal: No tenderness Integumentary: No rashes Neurological: Normal gait, Normal speech, Normal tone, Normal affect Lymphatics: No axilla or inguinal lymphadenopathy Laboratory Data (last 24 hrs) 03/18/24 03/18/24 03/18/24 17:00 17:00 17:00 WBC 7.00 Hgb 13.6 Hct 41.0 Plt Count 266 PT 11.3 INR 1.01 Sodium 139 Potassium 3.6 BUN 20 H Creatinine 0.80 Glucose 77 Magnesium 1.7 - Problems (1) Preoperative clearance Current Visit: Yes Status: Acute Plan: patient can not do more than 4 METs, she report she had a recent stress test that is abnormal, I tried to reach her corporate wellness coordinator (Dr. Hollingsworth) but did not hear back from him yet, per Dr. Winchester, her corporate wellness coordinator reported moderate to large reversible ischemia in inferolateral and inferior casarez. - schedule for coronary angiogram, will try to avoid PCI unless it is really needed as patient will need to be on DAPT. - continue ASA 81 mg daily. (2) Coronary artery disease Current Visit: Yes Status: Acute Plan: as above. (3) HTN (hypertension) Current Visit: Yes Status: Acute Plan: continue diltazem and monitor. (4) HLD (hyperlipidemia) Current Visit: Yes Status: Acute Plan: continue lipitor 40 mg daily
--- NOTE | 2024-03-19 16:55 | EKG ---
Test Date: 2024-03-18 Test Time: 17:01:36 Media Theorist And Author Of: JYOTI MEASUREMENT RESULTS: Intervals: Rate: 92 MS: 134 QRSD: 88 QT: 386 QTc: 477 [place]: P: 50 MS: 134 QRS: 54 T: 38 INTERPRETIVE STATEMENTS: Sinus rhythm with occasional premature ventricular complexes Otherwise normal ECG Compared to ECG 10/06/2023 12:38:29 Ventricular premature complex(es) now present Left-axis deviation no longer present Electronically Signed On 03-19-24 16:52:43 CDT by James Chan
[2024-03-19] MEDS: PNEUMOCOCCAL VACCINE 0.5 ML IMVAC ONE (17:27)
[2024-03-19] MEDS: ATORVASTATIN 40 MG TAB PO SCH (20:26)
[2024-03-19] MEDS: ENSURE SURGERY 237 ML CAN PO SCH (20:29)
--- NOTE | 2024-03-20 03:47 | HP ---
Date of Admission: 03/19/2024 Chief Complaint: Fall and hip pain. History Of Present Illness: This is a 68-year-old very pleasant female patient who was doing fine in her normal usual state of health until yesterday as she was in her backyard going to her neighbor's house, she lost her balance and fell down on a hard concrete surface and immediately started complaining of pain in her right hip. Her neighbor saw her and called ambulance and the patient was brought into the emergency room where she was evaluated and diagnosed as having right hip fracture and was admitted to the hospital. When I saw her this morning, she denied any complaints. No chest pain. No shortness of breath. Allergies: TO VANCOMYCIN THAT CAUSED HER TO STOP BREATHING. Medications: Vitamin B12 1 mg daily, multivitamin daily, montelukast 10 mg daily, magnesium oxide 250 mg daily, Humalog insulin and long-acting insulin degludec, which she takes 26 units subcutaneous injection daily. Hydrochlorothiazide 25 mg daily; docusate sodium 100 mg, takes 3 tablets daily; diltiazem 120 mg daily; Dexilant 60 mg daily; atorvastatin 40 mg, she takes 2 tablets daily at bedtime; aspirin 81 mg daily; and aliskiren 150 mg daily in morning. Review of Systems: Musculoskeletal: As mentioned above. All other systems reviewed and negative. Past Medical History: Significant for type 1 diabetes mellitus diagnosed in 1969, hypertension, hyperlipidemia, coronary artery disease, gastroesophageal reflux disease, uterine fibroid and cancer of cervix. Past Surgical History: Tonsillectomy, coronary artery angioplasty in 1990, umbilical hernia repair, cholecystectomy, hysterectomy, right shoulder surgery. Family History: Father , had heart disease. Mother , had Alzheimer's disease. Social History: Prior history of smoking, not at present time. Use of alcohol, occasional. Physical Examination: Vital Signs: This morning, temperature 97.6, pulse 99, respiratory rate 18, blood pressure 117/59, oxygen saturation 95%, height 5 feet 2 inches, weight 162 pounds. General: Awake, alert, oriented, not in distress. HEENT: Head atraumatic, normocephalic. Conjunctivae nonerythematous. Sclerae white. Mouth, no thrush or edema noted. Ears/Nose, no mass, lesion, discharge noted. Neck: Supple. No JVD, lymph nodes, bruit, thyromegaly noted. Lungs: Bilateral good equal air entry. Clear to auscultation. No rhonchi. No rales. Heart: Normal heart sounds, no murmur or gallop. Abdomen: Soft, bowel sounds normal. No guarding, rigidity, tenderness, mass, hepatosplenomegaly, distention, or bruit noted. Extremities: No leg edema. No calf tenderness. Skin: No rash, ulcer, cellulitis. Lymphatics: No lymph node enlargement in neck, supraclavicular, infraclavicular region. Neuro: No focal neurological deficit. Chest: Unremarkable. External Genitalia: Deferred. Rectal: Deferred. Laboratory Data: Chest x-ray, no acute cardiopulmonary changes. Right hip x- ray shows avulsion fracture of the lesser trochanter with fracture extending into intertrochanteric and greater trochanter region. WBC 7, hemoglobin 13.6, platelets 266 and this was yesterday and this morning WBC 7, hemoglobin 12, platelets 238. For chemistry yesterday, sodium 139, potassium 3.6, chloride 106, bicarb 27, BUN 20, creatinine 0.80, glucose 77. Troponin 6. ProBNP 82. Urinalysis shows 75 leukocytes, otherwise negative. Impression: 1. Right hip fracture. 2. Coronary artery disease. 3. Type 1 diabetes mellitus. 4. Hypertension. 5. Hyperlipidemia. 6. Gastroesophageal reflux disease. Plan: We will go ahead and admit the patient to hospital for further evaluation and management of this problem. The patient is appropriate for inpatient and is expected to spend 2 midnights in hospital. For her hip fracture, we will go ahead and consult orthopedic surgeon, Dr. Sue to plan for surgical repair. We will need cardiac clearance on her in view of her history of coronary artery disease and on an outpatient basis she sees Dr. Hollingsworth and I did call Dr. Hollingsworth this morning as per my discussion with the patient. She had indicated that she had a stress test done with him on March 12, 2024, which showed abnormality and he has suggested cardiac catheterization, which has not been done and when I communicated with Dr. Hollingsworth, he informed me that the patient had moderate to large amount of mauro-infarct ischemia. I did communicate all these details with our sap hana developer, Dr. Rangel, who is planning to do cardiac cath tomorrow to stratify her risk. We will continue her aspirin 81 mg daily and atorvastatin 80 mg at bedtime for her coronary artery disease and hyperlipidemia respectively. For her gastroesophageal reflux disease, she is on proton pump inhibitor and will continue that per order. For hypertension, she takes diltiazem, which will be continued. We will monitor blood pressure, adjust medication as it becomes necessary. Lovenox will be given for DVT prophylaxis. Pain medications will be given per order. I will see her tomorrow for followup and details and plan of treatment discussed with the patient. Total time spent was 90 minutes including review of prior office visit record, review of emergency room record, communication with two sap hana developer and performing evaluation and management for this admission. JONN/INEZ Voice ID: [id number] MARY
[2024-03-20] MEDS: D5 0.9 NS 1,000 ML IV SCH (06:40)
--- NOTE | 2024-03-20 07:17 | CON ---
Date of Consultation: 03/19/2024 History Of Present Illness: This is my first time I am seeing the patient to my knowledge. She is a 68-year-old female, who unfortunately fell yesterday injuring her right lower extremity. She was se en and examined in the emergency department where she was ruled out for other injuries; however, an x -ray of her hip demonstrates comminuted displaced intertrochanteric fracture on the right. On seeing her today, she is in bed with her knee elevated on pillows. She is in some pain. She says she does have some degree of nausea. On review of her history, she does have diabetes and according to H and P, she does have history of TN as well as possibly a stent. She is currently on aspirin. She has a paint tester in [place] who has done a stress test on her which apparently was abnormal and she was scheduled for cardiac catheterization. However, she fell prior to receiving this and has now been a dmitted to our hospital. Her paint tester in [place] does not come here to my knowledge and Kim tomlin has been consulted for her by the hospitalist. Physical Examination: On physical examination, all of her long bones and joints are palpated without pain or crepitation wi th the exception of her right hip which is painful to any movement or manipulation. Review of her x- ray does demonstrate comminuted displaced intertrochanteric fracture on the right. Assessment: A 68-year-old female with a rather complicated cardiac history, which was being evaluate d by the paint tester here, now with a right comminuted displaced intertrochanteric fracture. Plan: At this time, we will await Cardiology input with regard to planning. I think she can go head and eat today. I have discussed with the OR and we will move forward if cleared by Cardiology kathie arroyo for closed reduction, intramedullary yoon fixation, or other indicated procedures. I have discuss ed this as well as risks, benefits, and alternatives to the patient. She says she understands everything as presented and wishes to proceed. SE/MODL Voice ID: [id number] Report ID: [id number]
[2024-03-20] MEDS: INSULIN GLARGINE 100 UNIT/ML SQ SCH (08:42)
[2024-03-20] MEDS: NA CHLORIDE 0.9% 1,000 ML ONE (11:08)
[2024-03-20] MEDS ORDERED: propofoL 200 MG/20 ML VIAL IV ONE (11:10)
[2024-03-20] MEDS ORDERED: ONDANSETRON 4 MG/2 ML VIAL ONE (11:10)
[2024-03-20] MEDS ORDERED: LIDOCAINE 2% MPF 5 ML VIAL ONE (11:10)
[2024-03-20] MEDS ORDERED: FENTANYL CITR 100 MCG/2 ML ONE (11:10)
[2024-03-20] MEDS: CEFAZOLIN SODIUM 1 GM/VIAL ONE (11:42)
[2024-03-20] MEDS: TRANEXAMIC ACID 1,000 MG/10 ML VIAL IV ONE (11:42)
[2024-03-20] MEDS: INSULIN REGULAR (HUMAN) 100 UNIT/ML ONE (11:45)
[2024-03-20] MEDS ORDERED: dexAMETHasone 4 MG/ML VIAL ONE (12:04)
--- NOTE | 2024-03-20 12:47 | P.BOP ---
Preoperative diagnosis: right iT fracture Postoperative diagnosis: same Primary procedure: Right hip VIGNESH fixation Estimated blood loss: 100 Anesthesia: General Transferred to: Recovery Room Condition: Good
[2024-03-20] MEDS: FENTANYL CITR 100 MCG/2 ML ONE (13:14)
--- NOTE | 2024-03-20 13:39 | OP ---
Date of Procedure: 03/20/2024 Surgeon: Dave Sue MD Preoperative Diagnosis: Right comminuted displaced intertrochanteric fracture. Postoperative Diagnosis: Right comminuted displaced intertrochanteric fracture. Procedure: Right hip closed reduction with intramedullary yoon fixation of the intertrochanteric frac ture. Estimated Blood Loss: 100 cc. Complications: There were no complications. Indications For Operation: Ms. Truong is a 68-year-old female who unfortunately fell injuring her ri t lower extremity. She was seen and examined in the emergency department where she was ruled out f or other injuries. She unfortunately had an injury to her right hip and x-rays demonstrated a displa dangelo comminuted trochanteric fracture. She does have a cardiac history and this necessitated evaluati on by Cardiology, but she has since cleared that, and risks, benefits, and alternatives of this proce dure have been discussed with both her and her family. They stated they understand things as present ed and wishes to proceed. Description Of Procedure: The patient was taken to the operating room and placed in supine position. General anesthesia was easily obtained by Anesthesia staff. Following this, she was then placed on the fracture table, and appropriately positioned and obtained an excellent closed reduction. Follow ing this, the right lower extremity was then prepped and draped in usual sterile fashion for the proc edure and location of the greater trochanter was located by palpation and C-arm. A vertical incision was made above the greater trochanter carefully through skin only. The fascia was then divided and allowed for placement of a finger for palpation of the greater trochanter. After this, a starting aw l was then used to establish a starting point and the guide pin was then placed without difficulty. After this, a size 11 x 125 was selected and it had some initial difficulty passing through the [facility] and rather than causing trauma, the pin was then overreamed to a size 12, which then allowed easy passage of the yoon. It was placed to appropriate depth and a cephalomedullary screw was placed using biplanar C-arm radiography in good position. After this, antirotation screw was placed followed by a distal interlocking screw. After this, the wounds were copiously irrigated and the fascia was clos ed using heavy Vicryl sutures followed by closure of the skin with Vicryl followed by rachid. Aileen palafox was then placed in Aquacel dressing, awakened, and taken to recovery room in good condition. ELISA Voice ID: [id number] Report ID: [id number]
--- NOTE | 2024-03-20 13:57 | RAD REPORT ---
EXAM DESCRIPTION: RAD - Hip in OR Right 2 View - 03/20/2024 1:48 pm CLINICAL HISTORY: Right femoral fracture FINDINGS: Screws and rods have been placed into a right femoral fracture Fluoroscopy time 1.3 minutes. Six fluoroscopic spot films obtained
[2024-03-20] MEDS: CEFAZOLIN 1 GM in NA CHLORIDE 0.9% 50 ML IVPB SCH (17:03)
--- NOTE | 2024-03-20 20:15 | PN ---
Date of Progress Note: 03/20/2024 Subjective: The patient was seen this morning for followup. She was lying in bed, not in distress. No new complaints except hip pain was reported and the pain medication does seem to help her. Objective: Vital Signs: Reviewed. HEENT: Unremarkable. Lungs: Clear to auscultation. Heart: Sounds normal. Abdomen: Soft. Bowel sounds normal. No guarding, rigidity, tenderness, or distention. Extremities: No leg edema. Impression: 1.Right hip fracture. 2.Coronary artery disease. 3.Type 1 diabetes mellitus. 4.Hypertension. Plan: We will go ahead and continue current insulin sliding scale for diabetes and start the patient on Semglee 10 units subcutaneous injection daily starting this morning. The patient was kept n.p.o. and IV fluid D5 normal saline at 50 cc/hour will be started. I did call windows software engineer, Dr. Chan, w ho informed me that yesterday he had opportunity to communicate with the patient's windows software engineer, Dr. Hollingsworth, and after both cardiologists had chance to discuss with Dr. Rangel, decided not to do any ca rdiac catheterization given cardiac clearance and I did communicate all these details with orthopedic surgeon, Dr. Sue, today and he took the patient to surgery. After surgery, he called and info rmed me that the patient had uneventful surgery and I will see her tomorrow morning for followup. The patient has not had a bowel movement in last 2 to 3 days. So, Dulcolax rectal suppository was or dered to be given tonight. JONN/MODL Voice ID: [id number] Report ID: [id number]
[2024-03-20] MEDS: BISACODYL 10 MG RECTAL SUPP PR SCH (21:00)
[2024-03-21] MEDS: PROMETHAZINE INJ 25 MG/ML AMP IV PRN (03:38)
[2024-03-21 07:05] LABS: Absolute Lymphocytes (CBC) 1.2 K/uL (0.7-4.9); Absolute Monocytes 0.9 K/uL (0.1-1.3); Absolute Neutrophil 7.5 K/uL (1.8-8.0); Basophils % 0.2 % (0-1.3); Eosinophils % 0.1 % (0-4.4); Hematocrit 34.6 % (36.0-45.0); Lymphocytes % 12.4 % (15.3-44.8); MCH 33.8 pg (27.0-35.0); MCHC 34.7 g/dL (32.0-36.0); MCV 97.3 fL (80-100); MPV 8.4 fL (7.6-11.3); Monocytes % 9.3 % (3.3-12.3); Platelets 245 thou/uL (152-406); RBC Red Blood Cell Count 3.55 M/uL (3.86-4.86); Red Cell Distribution Width 12.8 % (12.1-15.2)
[2024-03-21 07:18] LABS: Anion Gap 7.9 mEq/L (5.0-15.0); Magnesium 1.7 mg/dL (1.6-2.4); Potassium 3.9 mEq/L (3.5-5.1)
[2024-03-21] MEDS: methocarbamoL 500 MG TAB PO SCH (08:29)
[2024-03-21] MEDS: INSULIN REGULAR (HUMAN) 100 UNIT/ML SQ SCH (08:31)
[2024-03-21] MEDS: INSULIN GLARGINE 100 UNIT/ML SQ SCH (08:31)
[2024-03-21] MEDS: DOCUSATE NA/SENNA CONC 1 TAB PO SCH (09:01)
[2024-03-21] MEDS: HYDROCODONE/APAP 5/325 MG TAB PO SCH (09:01)
[2024-03-21] MEDS: PNEUMOCOCCAL VACCINE 0.5 ML IMVAC ONE (10:00)
--- NOTE | 2024-03-21 23:54 | PN ---
Date of Progress Note: 03/21/2024 Subjective: The patient was seen this morning for followup. No new complaints or problems reported by her except this morning when I saw her, the patient was complaining of having lot of pain. I had a hard time initially getting information from her, exactly where her pain is; if it is in her hip, b ack, or anywhere else and after a while I was able to get information from her that she was complaini ng of pain in her lower half of abdomen. The patient reported that throughout the night she kept on having this off and on, and she could not sleep well. Physical Examination: Vital Signs: Reviewed. HEENT: Unremarkable. Lungs: Clear to auscultation. Heart: Sounds normal. Abdomen: Soft. Bowel sounds normal. Presence of tenderness in suprapubic and lower part of the abd omen. No rebound tenderness. The patient's bladder appeared to be distended on percussion. Extremities: No leg edema. Laboratory Data: White count 9.6, hemoglobin 12, platelets 245. Sodium 139, potassium 3.9, chloride 108, bicarb 27, BUN 20, creatinine 0.60, glucose 355. Magnesium 1.7. Impression: 1.Right hip fracture. 2.Urinary retention. 3.Type 1 diabetes mellitus. 4.Hyperlipidemia. 5.Coronary artery disease. Plan: We will go ahead and continue Lovenox for DVT prophylaxis. The patient is on long-acting insu mohsen Semglee 10 units subcutaneous injection daily in the morning and after reviewing fingerstick bloo d sugar readings, I have increased the dose to 20 units subcutaneous injection daily. We will contin ue sliding scale insulin as well. Methocarbamol was ordered for muscle spasm she was complaining thi s morning. We will continue morphine as needed for pain, and Zofran as needed for nausea and vomitin g. After I saw the patient, nurse was advised to do the bladder scan and that showed approximately 6 00 cc of urine in the bladder. At that time, decision was made to place a Brooke catheter. I did dis cuss with her regarding discharge planning and the patient has expressed desire to go to inpatient re hab if she is able to for physical therapy. I have requested Social Service consultation to help rafita e arrangements for that. I will be out of town starting tomorrow and hospitalist will take over her care, and I have discussed details with the hospitalist. JONN/MODL Voice ID: [id number] Report ID: [id number]
[2024-03-22 00:38] VITALS: BMI 28.7
--- NOTE | 2024-03-22 07:55 | P.PN ---
Date of Service: 03/22/24 Subjective: doing ok feels constipated, no BM in a few days follows strict regimen at home pain improving ROS: 10 point ROS as noted above, otherwise negative Physical Exam: GEN: Alert, oriented, NAD CV: Regular rate and rhythm, no edema Pulm: Nonlabored respirations on room air, clear bilaterally ABD: Soft, nontender, nondistended Neuro: Normal speech, normal affect vitals reviewed Problem List: Right hip fracture s/p right hip VIGNESH fixation (03/20) Urinary retention Constipation, chronic hx CAD s/p PCI (1990) IDDM1 Hyperlipidemia Hypertension GERD Right hip fracture s/p right hip VIGNESH fixation (03/20) presented with right hip pain after sustaining a fall hip xray (03/18): Avulsion fracture lesser trochanter right femur. involves intertrochanteric and probably greater trochanter. Varus angulation present at fracture site. Dr. Sue, ortho consulted s/p right hip VIGNESH fixation (03/20) Touchdown weightbearing - RLE. f/u in office in 1-2 weeks pain control continue PT - Pending inpatient rehab approval Urinary retention bladder scan yesterday with ~approx 600cc urine rascon placed 03/21 consider voiding trial in a few days Constipation, chronic requesting enema for tomorrow continue bowel regimen hx CAD s/p PCI (1990) had abnormal stress test 03/12/[address] Hollingsworth in office. Dr. Hollingsworth contacted. No angiogram needed. ok for surgery with intermediate cardiac risk, no further testing needed pre- op continue asa 81 mg IDDM1 accu-cheks, SSI continue semglee; titrate as needed Hyperlipidemia. continue statin Hypertension. continue diltiazem GERD. continue pepcid BID VTE: Lovenox Code: Full Dispo: Inpatient rehab, pending approval Time Spent Managing Pts Care (In Minutes): 41
[2024-03-22] MEDS: PNEUMOCOCCAL VACCINE 0.5 ML IMVAC ONE (08:43)
[2024-03-22] MEDS: BISACODYL 10 MG RECTAL SUPP PR ONE (10:07)
[2024-03-23 07:00] LABS: Anion Gap 7.8 mEq/L (5.0-15.0); Magnesium 1.8 mg/dL (1.6-2.4); Potassium 3.8 mEq/L (3.5-5.1)
[2024-03-23] MEDS: ACETAMINOPHEN 500 MG TAB PO PRN (10:52)
--- NOTE | 2024-03-23 11:36 | P.PN ---
Date of Service: 03/23/24 Subjective: pain somewhat improving asking to adjust oral meds so can stop IV no BM, asking for enema today ROS: 10 point ROS as noted above, otherwise negative Physical Exam: GEN: Alert, oriented, NAD CV: Regular rate and rhythm, no edema Pulm: Nonlabored respirations on room air, clear bilaterally ABD: Soft, nontender, nondistended Neuro: Normal speech, normal affect Rascon in place vitals reviewed Problem List: Right hip fracture s/p right hip VIGNESH fixation (03/20) Urinary retention Constipation, acute on chronic hx CAD s/p PCI (1990) IDDM1 Hyperlipidemia Hypertension GERD Right hip fracture s/p right hip VIGNESH fixation (03/20) presented with right hip pain after sustaining a fall hip xray (03/18): Avulsion fracture lesser trochanter right femur. involves intertrochanteric and probably greater trochanter. Varus angulation present at fracture site. Dr. Sue, ortho consulted s/p right hip VIGNESH fixation (03/20) Touchdown weightbearing - RLE. f/u in office in 1-2 weeks pain control continue PT - Pending inpatient rehab bed availability Urinary retention 03/21 bladder scan with ~approx 600cc urine rascon placed 03/21 consider voiding trial in a few days likely due to anesthesia / pain / immobility / constipation Constipation, acute on chronic PRN daily enema added (03/22) continue bowel regimen no BM yet hx CAD s/p PCI (1990) had abnormal stress test 03/12/[address] Hollingsworth in office. Dr. Hollingsworth contacted. ok for surgery with intermediate cardiac risk, no further testing needed pre-op continue asa 81 mg IDDM1 accu-cheks, SSI continue semglee; titrate as needed Hyperlipidemia. continue statin Hypertension. continue diltiazem GERD. continue pepcid BID VTE: Lovenox Code: Full Dispo: Inpatient rehab, pending bed availability. ?tomorrow Time Spent Managing Pts Care (In Minutes): 41
--- NOTE | 2024-03-24 15:23 | P.PN ---
Date of Service: 03/24/24 Subjective: pain improving overall improving no new/worsening symptoms ROS: 10 point ROS as noted above, otherwise negative Physical Exam: GEN: Alert, oriented, NAD CV: Regular rate and rhythm, no edema Pulm: Nonlabored respirations on room air, clear bilaterally ABD: Soft, nontender, nondistended Neuro: Normal speech, normal affectq Rascon in place vitals reviewed Problem List: Right hip fracture s/p right hip VIGNESH fixation (03/20) Urinary retention Constipation, acute on chronic hx CAD s/p PCI (1990) IDDM1 Hyperlipidemia Hypertension GERD Right hip fracture s/p right hip VIGNESH fixation (03/20) presented with right hip pain after sustaining a fall hip xray (03/18): Avulsion fracture lesser trochanter right femur. involves intertrochanteric and probably greater trochanter. Varus angulation present at fracture site. Dr. Sue, ortho consulted s/p right hip VIGNESH fixation (03/20) Touchdown weightbearing - RLE. f/u in office in 1-2 weeks pain control continue PT - Pending inpatient rehab bed availability Urinary retention 03/21 bladder scan with ~approx 600cc urine rascon placed 03/21 consider voiding trial in a few days likely due to anesthesia / pain / immobility / constipation Constipation, acute on chronic PRN daily enema added (03/22) continue bowel regimen no BM yet hx CAD s/p PCI (1990) had abnormal stress test 03/12/[address] Hollingsworth in office. Dr. Hollingsworth contacted. ok for surgery with intermediate cardiac risk, no further testing needed pre-op continue asa 81 mg IDDM1 accu-cheks, SSI continue semglee; titrate as needed Hyperlipidemia. continue statin Hypertension. continue diltiazem GERD. continue pepcid BID VTE: Lovenox Code: Full Dispo: Inpatient rehab, pending bed availability. ?tomorrow Time Spent Managing Pts Care (In Minutes): 41
[2024-03-24] MEDS: FLEET ENEMA ADULT PR PRN (16:26)
[2024-03-25 07:11] LABS: Anion Gap 12.2 mEq/L (5.0-15.0); Magnesium 1.8 mg/dL (1.6-2.4); Potassium 3.2 mEq/L (3.5-5.1)
[2024-03-25 11:25] LABS: Hematocrit 31.6 % (36.0-45.0); Hemoglobin 10.6 g/dL (12.0-15.0); MCH 32.6 pg (27.0-35.0); MCHC 33.7 g/dL (32.0-36.0); MPV 8.4 fL (7.6-11.3); Platelets 311 thou/uL (152-406); RBC Red Blood Cell Count 3.26 M/uL (3.86-4.86); Red Cell Distribution Width 12.5 % (12.1-15.2)
--- NOTE | 2024-03-25 11:36 | P.DS ---
Admission Date: 03/18/24 Discharge Date: 03/25/24 Reason for Admission: Right hip pain Consultations: Ortho - Dr. Sue Cardiology - Dr. Rangel Brief History of Present Illness: 68yo M, PMH: HTN, DM type II, history of CADstatus post PCI x 1 in 1990, Patient presented after sustaining a fall this afternoon. Patient follows with cardiology Dr. Seals, states recent abnormal stress test and scheduled for cardiac cath later this month, but denies chest pain at rest. Patient states she was walking to the back door of her house and she tripped on some stones. She fell landing on her right side and developed inability to move the right leg with pain. She was brought by the EMS to the emergency room. She denies any loss of consciousness, head injury, chest pain or shortness of breath. She describes similar for about 2 years ago for which she sustained a right upper extremity fracture. Arrival in the ED vital signs were stable, chest x-ray shows clear lungs, x-ray of the right hip show acute fracture of the femoral neck. CBC and BMP were unremarkable. EKG showed normal sinus rhythm,, normal Q TC interval, no ST segment changes. Dr. Sue orthopedics has been discussed with and plan for surgery on Monday. Hospital Course: Problem List: Right hip fracture s/p right hip VIGNESH fixation (03/20) Urinary retention Constipation, acute on chronic hx CAD s/p PCI (1990) IDDM1 Hyperlipidemia Hypertension GERD Physician discharge instructions: Patient presented with right hip pain after sustaining a fall, secondary to right hip fracture seen on xray imaging on admission. Patient was evaluated by Dr. Sue, donna, and underwent right hip VIGNESH fixation on 03/20. She did well post operatively. Pain slowly improved and was well managed with oral hydrocodone. She worked with PT throughout her stay who felt she would benefit from inpatient rehab. Patient was feeling better, hip pain improving, and deemed stable to inpatient rehab. Advised touchdown weightbearing to right lower extremity until otherwise instructed by Dr. Sue / Donna. Follow up with Dr. Sue in office for further management. Continue current bowel regimen at rehab for constipation. During her hospitalization, she reported some difficulty urinating. Bladder scan done noted ~approx 600cc urine retained. Discussed options with patient and she was agreeable to gui rascon 03/21. Can consider voiding trial over the next few days. Suspect secondary to surgery / immobility, and constipation. She was able to start having good bowel movements 03/25, so may have success in voiding trial in next ~24hrs. Follow up: Dr. Winchester in office in ~[address] Sue in office in 1-2 weeks Please call to schedule / confirm appointments Physical Exam: GEN: Alert, oriented, NAD CV: Regular rate and rhythm, no edema Pulm: Nonlabored respirations on room air, clear bilaterally ABD: Soft, nontender, nondistended Neuro: Normal speech, normal affect Rascon in place (placed 03/21) Vital Signs/Physical Exam: Temp Pulse Resp BP Pulse Ox 98.1 F 99 H 18 125/60 96 03/25/24 04:00 03/25/24 04:00 03/25/24 04:00 03/25/24 04:00 03/25/24 04:00 Laboratory Data at Discharge: WBC 8.90 thou/uL (4.3-10.9) 03/25/24 11:12 Hgb 10.6 g/dL (12.0-15.0) L 03/25/24 11:12 Hct 31.6 % (36.0-45.0) L 03/25/24 11:12 Plt Count 311 thou/uL (152-406) 03/25/24 11:12 PT 11.3 SECONDS (9.4-12.5) 03/18/24 17:00 INR 1.01 03/18/24 17:00 Sodium 139 mEq/L (136-145) 03/25/24 06:30 Potassium 3.2 mEq/L (3.5-5.1) L 03/25/24 06:30 BUN 14 mg/dL (7-18) 03/25/24 06:30 Creatinine 0.46 mg/dL (0.55-1.02) L 03/25/24 06:30 Glucose 114 mg/dL (74-106) H 03/25/24 06:30 Magnesium 1.8 mg/dL (1.6-2.4) 03/25/24 06:30 Total Bilirubin 0.4 mg/dL (0.2-1.0) 03/19/24 06:12 AST 12 U/L (15-37) L 03/19/24 06:12 ALT 18 U/L (13-56) 03/19/24 06:12 Alkaline Phosphatase 74 U/L (45-117) 03/19/24 06:12 Triglycerides 69 mg/dL (<150) 03/19/24 06:12 Cholesterol 121 mg/dL (<200) 03/19/24 06:12 HDL Cholesterol 52 mg/dL (40-60) 03/19/24 06:12 Cholesterol/HDL Ratio 2.33 03/19/24 06:12 Home Medications: Aspirin 81 mg PO DAILY 05/01/15 Atorvastatin Calcium [Lipitor] 40 mg PO BEDTIME 05/01/15 Docusate [Colace Cap*] 100 mg PO DAILY 05/01/15 Insulin Lispro [Humalog] 1 unit SQ ACHSPRN PRN 05/01/15 Ascorbic Acid [Vitamin C] 1,000 mg PO DAILY 08/20/17 Cholecalciferol (Vitamin D3) [Vitamin D 5,000 IU Cap*] 5,000 unit PO DAILY 08/20/17 Dexlansoprazole [Dexilant] 60 mg PO DAILY 08/20/17 Multivitamin [Daily Multiple Vitamin] 1 each PO DAILY 08/20/17 hydroCHLOROthiazide [Hydrochlorothiazide] 25 mg PO DAILY 08/20/17 Aliskiren Hemifumarate [Tekturna] 150 mg PO DAILY 03/18/24 Diclofenac Epolamine [Flector] 1 patch ID DAILY PRN 03/18/24 Diclofenac Sodium [Arthritis Pain Reliever] 50 gm TP Q8HP PRN 03/18/24 Insulin Degludec [Tresiba Flextouch U-100] 26 units SQ DAILY 03/18/24 Turmeric Root Extract [Turmeric] 2 cap PO BID 03/18/24 bisacodyL [Dulcolax] 10 mg PO BEDTIME 03/18/24 Physician Discharge Instructions: Physician discharge instructions: Patient presented with right hip pain after sustaining a fall, secondary to right hip fracture seen on xray imaging on admission. Patient was evaluated by Dr. Sue, ortho, and underwent right hip VIGNESH fixation on 03/20. She did well post operatively. Pain slowly improved and was well managed with oral hydrocodone. She worked with PT throughout her stay who felt she would benefit from inpatient rehab. Patient was feeling better, hip pain improving, and deemed stable to inpatient rehab. Advised touchdown weightbearing to right lower extremity until otherwise instructed by Dr. Sue / Ortho. Follow up with Dr. Sue in office for further management. Continue current bowel regimen at rehab for constipation. During her hospitalization, she reported some difficulty urinating. Bladder scan done noted ~approx 600cc urine retained. Discussed options with patient and she was agreeable to rascon, placed 03/21. Can consider voiding trial over the next few days. Suspect secondary to surgery / immobility, and constipation. She was able to start having good bowel movements 03/25, so may have success in voiding trial in next ~24hrs. Follow up: Dr. Winchester in office in ~[address] Sue in office in 1-2 weeks Please call to schedule / confirm appointments Followup: Osmani Winchester MD [Primary Care Provider] - 1 Week Dave Sue MD [ACTIVE - CAN ADMIT] - 1-2 Weeks Time spent managing pt's care (in minutes): 45
[2024-03-25] MEDS: HYDROCODONE/APAP 5/325 MG TAB PO PRN (11:57)
[2024-03-25 19:56] VITALS: O2SAT 96
[2024-03-25 20:34] VITALS: BP 121/60; TEMP 97.7
== END 2024-03-25 21:55 | DRG 482 ==
LOC: ER 16:37 → ERHOLD 19:51 → 4TH 22:17
PROVIDERS: ADMIT Internal Medicine; ATTEND Internal Medicine
PROC: 0QH636Z Insertion of Intramedullary Internal Fixation Device into Right Upper Femur, Percutaneous Approach (ICD-10-PCS; principal; 2024-03-20 11:30)
DX: S72.141A Displaced intertrochanteric fracture of right femur, initial encounter for closed fracture (principal); I10 Essential (primary) hypertension; E78.5 Hyperlipidemia, unspecified; K59.09 Other constipation; E10.42 Type 1 diabetes mellitus with diabetic polyneuropathy; I49.3 Ventricular premature depolarization; I25.10 Atherosclerotic heart disease of native coronary artery without angina pectoris; R33.9 Retention of urine, unspecified; Z79.4 Long term (current) use of insulin; Z88.1 Allergy status to other antibiotic agents; Z79.82 Long term (current) use of aspirin; Z85.41 Personal history of malignant neoplasm of cervix uteri; Z90.49 Acquired absence of other specified parts of digestive tract; Z96.621 Presence of right artificial elbow joint; Z79.899 Other long term (current) drug therapy; Z90.710 Acquired absence of both cervix and uterus
CPT/HCPCS: 36415; 71045; 80048; 80053; 80061; 81001; 82550; 82947; 83735; 83880; 84443; 84484; 85025; 85027; 85610; 93005; 96374; 96375; 97110; 97112; 97116; 97161; 97530; 97542; 99285; J0690; J1100; J1650; J2001; J2270; J2405; J2550; J2704; J3010; J7030; J7042

== ENCOUNTER 2024-06-23 18:48 | Emergency (ER) | payer OTHER ==
--- OUTSIDE RECORDS SUMMARY | 2024-06-23 18:53 | XMS REPORT | Continuity of Care Document ---
Author Name Unknown Address [address] [facility] [address] [place] [address] [facility] Address [address] [facility] [place] [address] Care Team Providers Care Home Demonstration Agent Name Role Phone FLAKITA GRAY Padilla Primary Care Physician Unavailab TOY Pascual Attending Clinician Unavailable FAUZIA JHA Attending Clinician Unavailable Vtc-Lab Attending Clinician Unavailable Fauzia Mckeon Attending Clinician [phone] JASWINDER HA Attending Clinician Unavaila reinaldo Doctor Unassigned, [place] Attending Clinician U TAMY Ruiz Attending Clinician UnavailTAMY Lane Attending Clinician UnavailJackie Hampton PA-C Attending Clinician [phone] Tamy Lujan MD Attending Clinician [phone] Jaswinder Ha MD Attending Clinician [phone] Doctor Unassigned, [place] Attending Clinician U JESUSITA Amador Attending Clinician Jesusita Dean DO Attending Clinician [phone] Curtis Pandey MD Attending Clinician Ernesto Attending Clinician Unavail able Patricia Attending Clinician UnavailMaverick Maloney Attending Clinician Unavailkaitlyn Roberts, Reji [facility] Main Attending Clinician UnavailCURTIS Silva Attending Clinician UnavailTyron Neves Attending Clinician [phone] Tyron Dotson Attending Clinician Unavailable SAMEER ADLER Attending Clinician Unavail able SAMEER ADLER Attending Clinician Unavail able Sameer Adler MD Attending Clinician RUT MYLES Attending Clinician UnavailBHUMI Driver Attending Clinician Unavailable GONZALEZ MCMANUS Attending Clinician Unavailable ANUPAM REBOLLAR Attending Clinician Unavailable JESUSITA OWEN Admitting Clinician Unavailab sandra Orozco Admitting Clinician Unavail able Patricia Admitting Clinician Unavailab Maverick Baires Admitting Clinician UnavailTyron Riggs Admitting Clinician Unavailable SAMEER ADLER Admitting Clinician Unavail able CURTIS PANEDY Admitting Clinician Unavailab flores Payers Payer Name Policy Type Policy Number Effective Date Expirati on Date Source MEDICARE PART A \\T\\ B [id number] 2009 00:00:00 [id number] 2007 00:00:00 [place] [employer] [id number] 2009 00:00:00 () [id number] 2007 00:00:00 [facility] ([facility] [id number] 2009 00:00:00 Problems Condition Name Condition Details [...] B12 deficiency Dietary B12 deficiency Disease Active 2021-0 9-13 00:00: 00 [facility] Mixed hyperlipid emia Mixed hyperlipid emia Disease Active 12-12 00:00: 00 [facility] 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 Disease Active 2014-07 00:00: 00 [facility] 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 Disease Active 2014-07 00:00: 00 [facility] Depression Depression Disease Active 2014-07 00:00: 00 [facility] Sinusitis Sinusitis Disease Active 01-22 00:00: 00 [facility] Diabetic arthropath y Diabetic arthropath y Disease Active 09-21 00:00: 00 [facility] Adhesive capsulitis of shoulder Adhesive capsulitis of shoulder Disease Active 09-21 00:00: 00 [facility] Osteoarthr itis, multiple sites Osteoarthr itis, multiple sites Disease Active 09-21 00:00: 00 [facility] Chronic pain syndrome Chronic pain syndrome Disease Active 09-21 00:00: 00 [facility] Arthritis Arthritis Disease Active 07-24 00:00: 00 [facility] Allergic rhinitis Allergic rhinitis Disease Active 07-24 00:00: 00 [facility] Essential hypertensi on, benign Essential hypertensi on, benign Disease Active 10-04 00:00: 00 [facility] Vitamin D deficiency Vitamin D deficiency Disease Active 10-04 00:00: 00 Overview: Formattin g of this note might be different from the original. ICD10 Diagnosis Term Patient Access Registrar Utility [facility] Pure hyperchole sterolemia Pure hyperchole sterolemia Disease Resolve d 10-04 00:00: 00 2017-12-12 00:00:00 2022-01-23 00:20:36 [facility] Type 1 diabetes mellitus with multiple complicati ons Type 1 diabetes mellitus with multiple complicati ons Disease Resolve d 10-04 00:00: 00 2015-05-28 00:00:00 2022-01-23 00:20:36 [facility] Diabetic neuropathy Diabetic neuropathy Disease Resolve d 11-02 00:00: 00 2015-05-06 00:00:00 2015-05-06 08:40:55 [facility] Diabetes mellitus type 2 without retinopath y Diabetes mellitus type 2 without retinopath y Disease Resolve d 11-22 00:00: 00 2015-04-20 00:00:00 2015-04-20 14:48:55 [facility] Type II or unspecifie d type diabetes mellitus with ophthalmic manifestat ions, not stated as uncontroll ed(250.50) Type II or unspecifie d type diabetes mellitus with ophthalmic manifestat ions, not stated as uncontroll ed(250.50) Disease Resolve d 12-21 00:00: 00 2011-10-05 00:00:00 2011-10-05 14:43:09 [facility] Type I (juvenile type) diabetes mellitus with ophthalmic manifestat ions, not stated as uncontroll ed(250.51) Type I (juvenile type) diabetes mellitus with ophthalmic manifestat ions, not stated as uncontroll ed(250.51) Disease Resolve d 03-23 00:00: 00 2011-10-05 00:00:00 2011-10-05 14:43:17 [facility] Uncontroll ed type 1 diabetes mellitus with ophthalmic manifestat ions Uncontroll ed type 1 diabetes mellitus with ophthalmic manifestat ions Disease Resolve d 12-23 00:00: 00 2011-10-05 00:00:00 2022-01-23 00:15:15 [facility] Uncontroll ed type 1 diabetes mellitus with ophthalmic manifestat ions Uncontroll ed type 1 diabetes mellitus with ophthalmic manifestat ions Disease Resolve d 12-23 00:00: 00 2011-10-05 00:00:00 2022-01-23 00:15:15 [facility] Type II or unspecifie d type diabetes mellitus with ophthalmic manifestat ions, not stated as uncontroll ed(250.50) Type II or unspecifie d type diabetes mellitus with ophthalmic manifestat ions, not stated as uncontroll ed(250.50) Disease Resolve d 11-06 00:00: 00 2010-03-23 00:00:00 2010-03-23 14:36:10 [facility] Type II or unspecifie d type diabetes mellitus without mention of complicati on, uncontroll ed Type II or unspecifie d type diabetes mellitus without mention of complicati on, uncontroll ed Disease Resolve d 2007-07 00:00: 00 2008-07-08 00:00:00 2008-07-08 13:15:53 [facility] Allergies, Adverse Reactions, Alerts Allergy Name Allergy Type Status Severity Reaction(s) Onset Date Inactive Date Treating Clinician Comments Source COVID-19 (SARS-CO V-2) VACCINE, AD26 DRUG INGREDI Active Rash 07-16 00:00: 00 [facility] Covid-19 (Sars-Co v-2) Vaccine, Ad26 Propensi ty to adverse reaction s Active Rash 07-16 00:00: 00 [facility] vancomyc in DA Active SV ANAPHYLAXIS 12-27 00:00: 00 [facility] VANCOMYC IN DRUG INGREDI Active High Unknown-Cmnt 2007-07 00:00: 00 [facility] Vancomyc in Propensi ty to adverse reaction s Active Unknown - See comments 2007-07 00:00: 00 paralysis [facility] Social History Social Habit Start Date Stop Date Quantity Comments Source History SDOH Alcohol Frequency [facility] History SDOH Alcohol Std Drinks [facility] History SDOH Alcohol Binge [facility] Gender identity [facility] History of Social function 2024-03-07 00:00:00 2024-03-07 00:00:00 [facility] Alcoholic beverage intake 2024-03-07 00:00:00 2024-03-07 00:00:00 Current drinker of alcohol (finding) [facility] Tobacco use and exposure 2024-03-07 00:00:00 2024-03-07 00:00:00 Smokeless tobacco non-user [facility] Alcohol intake 2023-08-21 00:00:00 2023-08-21 00:00:00 Current drinker of alcohol (finding) [facility] Exposure to SARS-CoV-2 (event) 2022-11-04 00:00:00 2022-11-14 12:16:00 Not sure [facility] Cigarettes smoked current (pack per day) - Reported 2022-03-21 00:00:00 2022-03-21 00:00:00 [facility] Alcohol Comment 2012-09-21 00:00:00 2012-09-21 00:00:00 occasional [facility] History of tobacco use 2005-07-24 00:00:00 Cigarette Smoker [facility] Sex assigned at 1955 00:00:00 1955 00:00:00 [facility] Smoking Status Start Date Stop Date Source Ex-smoker 2024-03-07 00:00:00 2024-03-07 00:00[facility] Medications Ordered Medication Name Filled Medication Name Start Date Stop Date Current Medication? Ordering Clinician Indication Dosage Frequency Signature (SIG) Comments Components Source atorvastati n 40 mg tablet 2023-07 00:00: 00 Yes [id number] 80mg Take 2 tablets by mouth at bedtime. [facility] hydroCHLORO thiazide 25 mg tablet 2023-07 00:00: 00 Yes [id number] 25mg Take 1 tablet by mouth in the morning. [facility] insulin lispro (HUMALOG KWIKPEN INSULIN) 100 unit/mL pen injector 2023-07 00:00: 00 Yes [id number] inject under the skin 3 (three) times daily before meals, est 40 units/day. [facility] insulin degludec 200 unit/mL (3 mL) InPn 2023-07 00:00: 00 Yes [id number] 24U inject 24 Units under the skin in the morning. [facility] VITAMIN C 500 MG ORAL TAB 12-05 13:13: 35 Yes 1 daily [facility] MULTI-VITAM IN ORAL 12-05 13:13: 31 Yes 1 daily [facility] cholecalcif christina, vitamin D3, (VITAMIN D3) 1,000 unit tablet 12-05 13:07: 24 Yes 1000U Take 1 tablet by mouth in the morning. [facility] diclofenac dodium (VOLTAREN) 1 % gel 12-05 00:00: 00 Yes [id number] 4g Apply 4 g to area(s) as needed for Pain. [facility] insulin degludec 200 unit/mL (3 mL) InPn 12-05 00:00: 00 06-05 00:00 :00 No [id number] 26U inject 26 Units under the skin in the morning. [facility] Dexlansopra zole (DEXILANT) 60 mg capsule 08-21 13:17: 57 08-21 00:00 :00 No Take by mouth. [facility] Dexlansopra zole (DEXILANT) 60 mg capsule 08-21 00:00: 00 Yes [id number] 60mg Take 1 capsule by mouth in the morning. TAke 1 capsule 4 times daily [facility] aliskiren (TEKTURNA) 150 mg tablet 08-21 00:00: 00 Yes [id number] 150mg Take 1 tablet by mouth in the morning. [facility] diltiazem 120 mg tablet 08-21 00:00: 00 Yes [id number] 120mg Take 1 tablet by mouth in the morning and 1 tablet at noon and 1 tablet in the evening. [facility] atorvastati n 40 mg tablet 08-21 00:00: 00 06-05 00:00 :00 No [id number] 80mg Take 2 tablets by mouth at bedtime. [facility] hydroCHLORO thiazide 25 mg tablet 08-21 00:00: 00 06-05 00:00 :00 No [id number] 25mg Take 1 tablet by mouth in the morning. [facility] insulin lispro (HUMALOG KWIKPEN INSULIN) 100 unit/mL pen injector 2024-0 2-12 00:00: 00 06-05 00:00 :00 No [id number] inject under the skin 3 (three) times daily before meals, est 40 units/day. [facility] insulin degludec 200 unit/mL (3 mL) InPn 2-12 00:00: 00 12-05 00:00 :00 No [id number] 26U inject 26 Units under the skin in the morning. [facility] codeine-gua ifenesin (ROBITUSSIN AC) 10-100 mg/5 mL oral solution 10 mL 07-16 16:00: 00 07-16 16:15 :00 No 10mL 10 mL, Oral, ONCE, 1 dose, On 07/16/23 at 1000, LAURIE [facility] albuterol 90 mcg/actuati on inhaler 07-16 00:00: 00 Yes [id number] 2{puff} Inhale 2 Puffs every 4 (four) hours as needed for Wheezing or Shortness of Breath. [facility] bromphenira mine-pseudo ephedrine-D M (BROMFED DM) 2-30-10 mg/5 mL syrup 07-16 00:00: 00 Yes [id number] 5mL Take 5 mL by mouth 4 (four) times daily as needed for Cold symptoms or Cough. [facility] VITAMIN C 500 MG ORAL TAB 2022-07 13:31: 37 Yes 1 daily [facility] MULTI-VITAM IN ORAL 2022-07 13:31: 36 Yes 1 daily [facility] ASPIRIN 81 MG ORAL CHEW 2022-07 13:31: 33 Yes once daily [facility] cholecalcif christina, vitamin D3, (VITAMIN D3) 1,000 unit tablet 2022-07 13:31: 30 Yes 1000U Take 1 tablet by mouth in the morning. [facility] CYANOCOBALA MIN, VITAMIN B-12, (VITAMIN B-12 ORAL) 2022-07 13:31: 28 Yes Take by mouth daily. [facility] Dexlansopra zole (DEXILANT) 60 mg capsule 2022-07 13:31: 16 Yes Take by mouth. [facility] cholecalcif christina, vitamin D3, (VITAMIN D3) 1,000 unit tablet 02-15 13:25: 45 Yes 1000U Take 1 tablet by mouth in the morning. [facility] CYANOCOBALA MIN, VITAMIN B-12, (VITAMIN B-12 ORAL) 02-15 13:25: 45 Yes Take by mouth daily. [facility] aliskiren (TEKTURNA) 150 mg tablet 02-15 00:00: 00 08-21 00:00 :00 No [id number] 150mg Take 1 tablet by mouth in the morning. [facility] ASPIRIN 81 MG ORAL CHEW 11-14 13:03: 27 [facility] cholecalcif christina, vitamin D3, (VITAMIN D3) 1,000 unit tablet 11-14 13:03: 25 Yes 1000U Take 1,000 Units by mouth daily. [facility] CYANOCOBALA MIN, VITAMIN B-12, (VITAMIN B-12 ORAL) 11-14 13:03: 22 Yes Take by mouth daily. [facility] atorvastati n 40 mg tablet 2-06 00:00: 00 08-21 00:00 :00 No [id number] 80mg Take 2 tablets by mouth at bedtime. [facility] insulin lispro (HUMALOG KWIKPEN INSULIN) 100 unit/mL pen injector 2021-07 00:00: 00 Yes [id number] inject under the skin 3 (three) times daily before meals, est 40 units/day. [facility] hydroCHLORO thiazide 25 mg tablet 2021-07 00:00: 00 08-21 00:00 :00 No [id number] 25mg Take 1 tablet by mouth in the morning. [facility] insulin degludec 200 unit/mL (3 mL) InPn 2021-07 00:00: 08-21 00:00 :00 No [id number] 26U inject 26 Units under the skin daily. [facility] insulin lispro (HUMALOG KWIKPEN INSULIN) 100 unit/mL pen injector 2021-07 00:00: 00 08-21 00:00 :00 No [id number] inject under the skin 3 (three) times daily before meals, est 40 units/day. [facility] diltiazem 120 mg tablet 2021-07 00:00: 00 08-21 00:00 :00 No [id number] 120mg Take 1 tablet by mouth in the morning and 1 tablet at noon and 1 tablet in the evening. [facility] SERTraline 100 mg tablet 2021-07 00:00: 00 05-18 00:00 :00 No [id number] 100mg Take 1 tablet by mouth in the morning. [facility] atorvastati n 40 mg tablet 2021-07 00:00: 00 08-15 00:00 :00 No [id number] 40mg Take 1 tablet by mouth at bedtime. [facility] glucagon 1 mg/0.2 mL AtIn 2021-07 00:00: 00 05-13 04:59 :00 No [id number] 1mg inject 1 mg under the skin ONCE PRN for Other for up to 1 dose. [facility] Diclofenac Sodium (VOLTAREN) 1 % gel 03-21 00:00: 00 12-05 00:00 :00 No [id number] Apply to area(s) as needed for Pain (scale 7-10) or Pain (scale 4-6). [facility] traMADoL 50 mg tablet 03-21 00:00: 00 05-18 00:00 :00 No [id number] 50mg Take 1 tablet by mouth in the morning and 1 tablet at noon and 1 tablet in the evening. Indication s: chronic pain [facility] methocarbam oL 500 mg tablet 03-21 00:00: 00 06-20 05:59 :00 No [id number] 500mg Take 1 tablet by mouth in the morning and 1 tablet in the evening. Do all this for 90 days. [facility] Diclofenac Epolamine (FLECTOR) 1.3 % patch 03-21 00:00: 00 06-20 05:59 :00 No [id number] Apply to skin 2 (two) times daily as needed for Pain (scale 7-10) or Pain (scale 4-6) for up to 90 days. [facility] aliskiren (TEKTURNA) 150 mg tablet 8- 00:00: 00 02-15 00:00 :00 No [id number] 150mg Take 1 tablet by mouth in the morning. [facility] traMADoL 50 mg tablet 02-02 00:00: 00 03-21 00:00 :00 No [id number] 50mg Take 1 tablet by mouth in the morning and 1 tablet at noon and 1 tablet in the evening. Indication s: chronic pain [facility] methocarbam oL (ROBAXIN) 500 mg tablet 01-25 00:00: 00 05-18 00:00 :00 No [id number] 500mg Take 1 tablet by mouth 2 (two) times daily as needed for Pain (scale 4-6) or Pain (scale 7-10). [facility] methocarbam oL (ROBAXIN) 500 mg tablet 08-17 00:00: 00 03-21 00:00 :00 No [id number] 750mg Take 1.5 tablets by mouth 2 (two) times daily. [facility] insulin degludec 200 unit/mL (3 mL) InPn 2020-07 00:00: 00 05-12 00:00 :00 No [id number] 26U inject 26 Units under the skin daily. [facility] atorvastati n 40 mg tablet 2020-07 00:00: 00 05-12 00:00 :00 No [id number] 40mg Take 1 tablet by mouth at bedtime. [facility] hydroCHLORO thiazide 25 mg tablet 2020-07 00:00: 00 05-12 00:00 :00 No [id number] 25mg Take 1 tablet by mouth daily. [facility] SERTraline 100 mg tablet 2020-07 00:00: 00 05-12 00:00 :00 No [id number] 100mg Take 1 tablet by mouth daily. [facility] Blood-Gluco se Transmitter (DEXCOM G6 TRANSMITTER ) Jazmin 2020-07 00:00: 00 Yes Change every 90 days [facility] Blood-Gluco se Sensor (DEXCOM G6 SENSOR) Jazmin 2020-07 00:00: 00 Yes Change sensor every 10 days [facility] Blood-Gluco se Meter,Jeff núñez (DEXCOM G6 DATA REVIEWER) Misc 2020-07 00:00: 00 05-18 00:00 :00 No Use as directed [facility] VITAMIN C 500 MG ORAL TAB 2020-07 13:56: 05 Yes 1 daily [facility] CYANOCOBALA MIN, VITAMIN B-12, (VITAMIN B-12 ORAL) 2020-07 13:56: 05 Yes Take by mouth daily. [facility] ASPIRIN 81 MG ORAL CHEW 2020-07 13:56: 05 Yes once daily [facility] cholecalcif christina, vitamin D3, (VITAMIN D3) 1,000 unit tablet 2020-07 13:56: 05 Yes 1000U Take 1 tablet by mouth in the morning. [facility] Dexlansopra zole (DEXILANT) 60 mg capsule 2020-07 13:56: 05 Yes Take by mouth. [facility] insulin lispro (HUMALOG KWIKPEN INSULIN) 100 unit/mL pen injector 03-22 00:00: 00 05-12 00:00 :00 No [id number] inject under the skin 3 (three) times daily before meals, est 40 units/day. [facility] glucagon 1 mg/0.2 mL AtIn 03-22 00:00: 05-12 00:00 :00 No [id number] 1mg inject 1 mg under the skin as needed for Other. [facility] DICLOFENAC EPOLAMINE 1.3 % patch 03-09 00:00: 00 03-21 00:00 :00 No [id number] APPLY ONE PATCH TO AFFECTED AREA TWICE A DAY NEEDED FOR PAIN (SCALE 1-3) OR PAIN (SCALE 4-6) (DO NOT APPLY TO DAMAGED SKIN, DO NOT WEAR WHILE BATHING OR SHOWERING, WASH HANDS AFTER HANDLING) [facility] DICLOFENAC SODIUM 1 % gel 03-09 00:00: 00 03-21 00:00 :00 No [id number] APPLY GEL TO AFFECTED AREA(S) EVERY 6 HOURS NEEDED FOR PAIN (SCALE 4-6) OR PAIN (SCALE 7-10) -(USE THE ENCLOSED DOSING CARD AND PATIENT INSTRUCTIO N SHEET FOR PROPER DOSING GUIDANCE OR DIRECTED BY YOUR DOCTOR. TOTAL AMOUNT USED EACH DAY SHOULD NOT EXCEED 32 GRAMS) [facility] Insulin [place], Disposable, (BD ULTRAFINE III MINI PEN) 31 gauge x 3/16" Ndle 01-15 00:00: 00 Yes [id number] 4 (four) times daily. [facility] Insulin [place], Disposable, (BD ULTRAFINE III MINI PEN) 31 gauge x 3/16" Ndle 01-15 00:00: 00 Yes [id number] 4 (four) times daily. [facility] diltiazem 120 mg tablet 01-15 00:00: 00 05-12 00:00 :00 No [id number] 120mg Take 1 tablet by mouth 3 (three) times daily. [facility] HYDROcodone -acetaminop hen (NORCO) 5-325 mg tablet 09-17 00:00: 00 05-18 00:00 :00 No [id number] 1{tbl} Take 1 tablet by mouth 2 (two) times daily. [facility] codeine-gua ifenesin (CHERATUSSI N AC) 10-100 mg/5 mL solution 2-04 00:00: 00 03-21 00:00 :00 No [id number] 5mL Take 5 mL by mouth every 6 (six) hours as needed for Cough. [facility] acetone, urine, test (KETONE URINE TEST) strip 01-19 00:00: 00 Yes [id number] Use as directed as needed to check for ketones [facility] acetone, urine, test (KETONE URINE TEST) strip 01-19 00:00: 00 Yes [id number] Use as directed as needed to check for ketones [facility] acetaminoph en 300 mg-codeine 30 mg tablet [...] 3+ YRS 2016-06-06 00:00:00 Completed [facility] Influenza Virus Vaccine Quad IM 3+ YRS 2016-06-06 00:00:00 Completed [facility] Influenza Virus Vaccine Quad IM 3+ YRS 2016-06-06 00:00:00 Completed [facility] Influenza Virus Vaccine Quad IM 3+ YRS 2016-06-06 00:00:00 Completed [facility] Influenza Virus Vaccine Quad IM 3+ YRS 2016-06-06 00:00:00 Completed [facility] Influenza Virus Vaccine Quad IM 3+ YRS 2016-06-06 00:00:00 Completed [facility] Influenza Virus Vaccine Quad IM 3+ YRS 2016-06-06 00:00:00 Completed [facility] Influenza Virus Vaccine Quad IM 3+ YRS 2016-06-06 00:00:00 Completed [facility] Influenza Virus Vaccine Quad IM 3+ YRS 2016-06-06 00:00:00 Completed [facility] Influenza Virus Vaccine Quad IM 3+ YRS 2016-06-06 00:00:00 Completed Influenza Virus Vaccine (3+ yrs) 2013-04-25 00:00:00 Completed [facility] Influenza Virus Vaccine (3+ yrs) 2013-04-25 00:00:00 Completed [facility] Influenza Virus Vaccine (3+ yrs) 2013-04-25 00:00:00 Completed [facility] Influenza Virus Vaccine (3+ yrs) 2013-04-25 00:00:00 Completed [facility] Influenza Virus Vaccine (3+ yrs) 2013-04-25 00:00:00 Completed [facility] Influenza Virus Vaccine (3+ yrs) 2013-04-25 00:00:00 Completed [facility] Influenza Virus Vaccine (3+ yrs) 2013-04-25 00:00:00 Completed [facility] Influenza Virus Vaccine (3+ yrs) 2013-04-25 00:00:00 Completed [facility] Influenza Virus Vaccine (3+ yrs) 2013-04-25 00:00:00 Completed [facility] Influenza, split virus, trivalent, preservative (3+ Yrs) (Afluria) 2013-04-25 00:00:00 Completed [facility] Influenza Virus Vaccine 2012-07-24 00:00:00 Completed [facility] Influenza Virus Vaccine 2012-07-24 00:00:00 Completed [facility] Influenza Virus Vaccine 2012-07-24 00:00:00 Completed [facility] Influenza Virus Vaccine 2012-07-24 00:00:00 Completed [facility] Influenza Virus Vaccine 2012-07-24 00:00:00 Completed [facility] Influenza Virus Vaccine 2012-07-24 00:00:00 Completed [facility] Influenza Virus Vaccine 2012-07-24 00:00:00 Completed [facility] Influenza Virus Vaccine 2012-07-24 00:00:00 Completed [facility] Influenza Virus Vaccine 2012-07-24 00:00:00 Completed [facility] Influenza Virus Vaccine 2012-07-24 00:00:00 Completed [facility] Influenza Virus Vaccine Unknown Completed [facility] Influenza Virus Vaccine (3+ yrs) Unknown Completed [facility] Influenza Virus Vaccine Quad IM 3+ YRS Unknown Completed [facility] Influenza Virus Vaccine Unknown Completed [facility] Influenza Virus Vaccine (3+ yrs) Unknown Completed [facility] Influenza Virus Vaccine Quad IM 3+ YRS Unknown Completed [facility] Influenza Virus Vaccine Unknown Completed [facility] Influenza Virus Vaccine (3+ yrs) Unknown Completed [facility] Influenza Virus Vaccine Quad IM 3+ YRS Unknown Completed [facility] Influenza Virus Vaccine Unknown Completed [facility] Influenza Virus Vaccine (3+ yrs) Unknown Completed [facility] Influenza Virus Vaccine Quad IM 3+ YRS Unknown Completed [facility] Influenza Virus Vaccine Unknown Completed [facility] Influenza Virus Vaccine (3+ yrs) Unknown Completed [facility] Influenza Virus Vaccine Quad IM 3+ YRS Unknown Completed [facility] Influenza Virus Vaccine Unknown Completed [facility] Influenza Virus Vaccine (3+ yrs) Unknown Completed [facility] Influenza Virus Vaccine Quad IM 3+ YRS Unknown Completed [facility] Influenza Virus Vaccine Unknown Completed [facility] Influenza Virus Vaccine (3+ yrs) Unknown Completed [facility] Influenza Virus Vaccine Quad IM 3+ YRS Unknown Completed [facility] Influenza Virus Vaccine Unknown Completed [facility] Influenza Virus Vaccine (3+ yrs) Unknown Completed [facility] Influenza Virus Vaccine Quad IM 3+ YRS Unknown Completed [facility] Influenza Virus Vaccine Unknown Completed [facility] Influenza Virus Vaccine (3+ yrs) Unknown Completed [facility] Influenza Virus Vaccine Quad IM 3+ YRS Unknown Completed [facility] Influenza Virus Vaccine Unknown Completed [facility] Influenza Virus Vaccine (3+ yrs) Unknown Completed [facility] Influenza Virus Vaccine Quad IM 3+ YRS Unknown Completed [facility] Influenza Virus Vaccine Unknown Completed [facility] Influenza Virus Vaccine (3+ yrs) Unknown Completed [facility] Influenza Virus Vaccine Quad IM 3+ YRS Unknown Completed [facility] Influenza Virus Vaccine Unknown Completed [facility] Influenza Virus Vaccine (3+ yrs) Unknown Completed [facility] Influenza Virus Vaccine Quad IM 3+ YRS Unknown Completed [facility] Influenza Virus Vaccine Unknown Completed [facility] Influenza Virus Vaccine (3+ yrs) Unknown Completed [facility] Influenza Virus Vaccine Quad IM 3+ YRS Unknown Completed [facility] Influenza Virus Vaccine Unknown Completed [facility] Influenza Virus Vaccine (3+ yrs) Unknown Completed [facility] Influenza Virus Vaccine Quad IM 3+ YRS Unknown Completed [facility] Vital Signs Vital Name Observation Time Observation Value Comments S ource Systolic blood pressure 2024-06-05 20:08:00 131 mm[Hg] [facility] Diastolic blood pressure 2024-06-05 20:08:00 54 mm[Hg] [facility] Heart rate 2024-06-05 20:08:00 98 /min [facility] Respiratory rate 2024-06-05 20:08:00 14 /min [facility] Body height 2024-06-05 20:08:00 154.9 cm [facility] Body weight 2024-06-05 20:08:00 68.72 kg [facility] BMI 2024-06-05 20:08:00 28.63 kg/m2 [facility] Oxygen saturation in Arterial blood by Pulse oximetry 2024-06-05 20:08:00 97 /min [facility] Body height 2024-03-07 17:57:00 154.9 cm [facility] Body weight 2024-03-07 17:57:00 70.716 kg [facility] BMI 2024-03-07 17:57:00 29.46 kg/m2 [facility] Systolic blood pressure 2023-12-06 17:38:00 130 mm[Hg] [facility] Diastolic blood pressure 2023-12-06 17:38:00 72 mm[Hg] [facility] Heart rate 2023-12-06 17:38:00 98 /min [facility] Body temperature 2023-12-06 17:38:00 36.5 Jeny [facility] Respiratory rate 2023-12-06 17:38:00 18 /min [facility] Body height 2023-12-06 17:38:00 154.9 cm [facility] Body weight 2023-12-06 17:38:00 74.526 kg [facility] BMI 2023-12-06 17:38:00 31.04 kg/m2 [facility] Oxygen saturation in Arterial blood by Pulse oximetry 2023-12-06 17:38:00 96 /min r/a [facility] Systolic blood pressure 2023-08-21 18:46:00 149 mm[Hg] [facility] Diastolic blood pressure 2023-08-21 18:46:00 81 mm[Hg] [facility] Heart rate 2023-08-21 18:46:00 95 /min [facility] Body temperature 2023-08-21 18:45:00 36.17 Jeny [facility] Respiratory rate 2023-08-21 18:45:00 21 /min [facility] Body height 2023-08-21 18:45:00 152.4 cm [facility] Body weight 2023-08-21 18:45:00 74.98 kg [facility] BMI 2023-08-21 18:45:00 32.28 kg/m2 [facility] Oxygen saturation in Arterial blood by Pulse oximetry 2023-08-21 18:45:00 98 /min [facility] Systolic blood pressure 2023-07-16 15:00:00 121 mm[Hg] [facility] Diastolic blood pressure 2023-07-16 15:00:00 69 mm[Hg] [facility] Heart rate 2023-07-16 15:00:00 103 /min [facility] Body temperature 2023-07-16 15:00:00 37.22 Jeny [facility] Respiratory rate 2023-07-16 15:00:00 16 /min [facility] Body height 2023-07-16 15:00:00 157.5 cm [facility] Body weight 2023-07-16 15:00:00 70.308 kg [facility] BMI 2023-07-16 15:00:00 28.35 kg/m2 [facility] Oxygen saturation in Arterial blood by Pulse oximetry 2023-07-16 15:00:00 97 /min [facility] Systolic blood pressure 2023-05-18 19:06:00 121 mm[Hg] [facility] Diastolic blood pressure 2023-05-18 19:06:00 77 mm[Hg] [facility] Heart rate 2023-05-18 19:06:00 93 /min [facility] Body temperature 2023-05-18 19:06:00 19.83 Jeny [facility] Respiratory rate 2023-05-18 19:06:00 18 /min [facility] Body height 2023-05-18 19:06:00 157.5 cm [facility] Body weight 2023-05-18 19:06:00 72.893 kg [facility] BMI 2023-05-18 19:06:00 29.39 kg/m2 [facility] Oxygen saturation in Arterial blood by Pulse oximetry 2023-05-18 19:06:00 100 /min r/a [facility] Systolic blood pressure 2023-02-15 18:24:00 109 mm[Hg] [facility] Diastolic blood pressure 2023-02-15 18:24:00 71 mm[Hg] [facility] Heart rate 2023-02-15 18:24:00 97 /min [facility] Body temperature 2023-02-15 18:24:00 36.5 Jeny [facility] Body height 2023-02-15 18:24:00 157.5 cm [facility] Body weight 2023-02-15 18:24:00 72.576 kg [facility] BMI 2023-02-15 18:24:00 29.26 kg/m2 [facility] Oxygen saturation in Arterial blood by Pulse oximetry 2023-02-15 18:24:00 97 /min [facility] Systolic blood pressure 2022-11-14 18:28:00 123 mm[Hg] [facility] Diastolic blood pressure 2022-11-14 18:28:00 61 mm[Hg] [facility] Heart rate 2022-11-14 18:28:00 96 /min [facility] Body temperature 2022-11-14 18:28:00 36 Jeny [facility] Respiratory rate 2022-11-14 18:28:00 18 /min [facility] Body height 2022-11-14 18:28:00 157.5 cm [facility] Body weight 2022-11-14 18:28:00 74.662 kg [facility] BMI 2022-11-14 18:28:00 30.11 kg/m2 [facility] Oxygen saturation in Arterial blood by Pulse oximetry 2022-11-14 18:28:00 97 /min [facility] Height 2022-10-19 00:00:00 62 [in_i] Azale a [...] Systolic blood pressure 2022-08-15 18:33:00 107 mm[Hg] [facility] Diastolic blood pressure 2022-08-15 18:33:00 68 mm[Hg] [facility] Heart rate 2022-08-15 18:33:00 88 /min [facility] Body temperature 2022-08-15 18:33:00 36.61 Jeny [facility] Respiratory rate 2022-08-15 18:33:00 16 /min [facility] Body height 2022-08-15 18:33:00 154.9 cm [facility] Body weight 2022-08-15 18:33:00 74.208 kg [facility] BMI 2022-08-15 18:33:00 30.91 kg/m2 [facility] Oxygen saturation in Arterial blood by Pulse oximetry 2022-08-15 18:33:00 98 /min [facility] Height 2022-08-03 00:00:00 62 [in_i] [facility] BMI (Body Mass Index) 2022-08-03 00:00:00 30.2 kg/m2 [facility] Body Weight 2022-08-03 00:00:00 165 [lb_av] Fe [facility] Systolic blood pressure 2022-05-12 18:19:00 111 mm[Hg] [facility] Diastolic blood pressure 2022-05-12 18:19:00 68 mm[Hg] [facility] Heart rate 2022-05-12 18:19:00 90 /min [facility] Body temperature 2022-05-12 18:19:00 36.11 Jeny [facility] Respiratory rate 2022-05-12 18:19:00 16 /min [facility] Body height 2022-05-12 18:19:00 157.5 cm [facility] Body weight 2022-05-12 18:19:00 73.256 kg [facility] BMI 2022-05-12 18:19:00 29.54 kg/m2 [facility] Oxygen saturation in Arterial blood by Pulse oximetry 2022-05-12 18:19:00 96 /min [facility] Systolic blood pressure 2022-03-21 20:00:00 128 mm[Hg] [facility] Diastolic blood pressure 2022-03-21 20:00:00 61 mm[Hg] [facility] Heart rate 2022-03-21 20:00:00 97 /min [facility] Respiratory rate 2022-03-21 20:00:00 16 /min [facility] Body height 2022-03-21 20:00:00 157.5 cm [facility] Body weight 2022-03-21 20:00:00 72.576 kg [facility] BMI 2022-03-21 20:00:00 29.26 kg/m2 [facility] Oxygen saturation in Arterial blood by Pulse oximetry 2022-03-21 20:00:00 97 /min [facility] Procedures Procedure Date / Time Performed Performing Clinician Source POCT HEMOGLOBIN A1C TEST 2023-12-06 00:00:00 Jaswinder Ha [facility] POCT HEMOGLOBIN A1C TEST 2023-08-21 20:36:00 Jaswinder Ha [facility] XR CHEST 2 VW 2023-07-16 16:32:38 Jesusita Owen [facility] ASSIGNMENT OF BENEFITS 2023-07-16 16:13:38 Docto r Unassigned, [place] [facility] RAPID INFLUENZA A/B 2023-07-16 15:55:00 Marlena Owen ra [facility] COVID-19 (ID NOW RAPID TESTING) 2023-07-16 15:55:00 Jesusita Owen [facility] CONSENT/REFUSAL FOR DIAGNOSIS AND TREATMENT 2023-07-16 15:45:08 Doctor Unassigned, [place] [facility] CONSENT/REFUSAL FOR DIAGNOSIS AND TREATMENT 2023-05-18 18:42:37 Doctor Unassigned, [place] [facility] POCT HEMOGLOBIN A1C TEST 2023-05-18 00:00:00 Jaswinder Ha [facility] POCT HEMOGLOBIN A1C TEST 2023-02-15 18:43:00 Jaswinder Ha [facility] POCT HEMOGLOBIN A1C TEST 2022-11-14 18:31:00 Jaswinder Ha [facility] XR, shoulder, 2 or more view 2022-10-19 00:00:00 [facility] XR, shoulder, 2 or more view 2022-09-28 00:00:00 [facility] XR, shoulder, 2 or more view 2022-09-07 00:00:00 [facility] POCT HEMOGLOBIN A1C TEST 2022-08-15 19:14:00 Jaswinder Ha [facility] XR, shoulder, 2 or more view 2022-08-03 00:00:[address] [facility] [address], shoulder, w/o contrast 2022-08-03 00:00:00 [facility] XR, humerus, 2 or more view 2022-07-22 00:00:00 [facility] XR, shoulder, 2 or more view 2022-05-20 00:00:00 [facility] POCT HEMOGLOBIN A1C TEST 2022-05-12 19:09:00 Jaswinder Ha [facility] DME/SUPPLY JUSTIFICATION 2022-04-05 05:01:00 Doc tor Unassigned, [place] [facility] XR, humerus, 2 or more view 2022-04-01 [...] Department Encounter ID Source 2021-05-07 21:24:44 Emergency [facility] [id number] [facility] 2024-06-05 15:15:00 2024-06-05 15:30:00 Pilling Machine Operator Visit [facility] Evan Jhadonovan [facility] [place] [facility] 1.840.114 350.1.13.10 4.2.7.2.686 [id number] [facility] 2024-06-05 14:30:00 2024-06-05 15:08:24 Outpatient R EVAN JHAJennifer [facility] [id number] [facility] 2024-06-05 14:30:00 2024-06-05 15:08:24 Office Visit Fauzia Jha [facility] [place] [facility] 1.840.114 350.1.13.10 4.2.7.2.686 [id number] [facility] 2024-02-22 00:00:00 2024-03-30 18:25:58 Patient Secure Msg Doctor Unassigned, [place] Doctor Unassigned, [place] [facility] 1.840.114 350.1.13.10 4.2.7.2.686 [id number] [facility] 2024-03-07 13:15:00 2024-03-07 14:07:44 Outpatient R TAMY LUJAN CRAIG [facility] [id number] [facility] 2024-03-07 13:15:00 2024-03-07 14:07:44 Office Visit Jackie Puga Craig L [facility] 1.840.114 350.1.13.10 4.2.7.2.686 [id number] [facility] 2024-01-24 00:00:00 2024-01-24 16:16:13 Telephone Jaswinder Ha [facility] 1.2.840.114 350.1.13.10 4.2.7.2.686 [id number] [facility] 2023-11-03 00:00:00 2023-12-09 18:10:37 Patient Secure Msg Doctor Unassigned, [place] [facility] 1.2.840.114 350.1.13.10 4.2.7.2.686 [id number] [facility] 2023-12-06 13:30:00 2023-12-06 13:30:00 Office Visit Jaswinder Ha [facility] 1.2.840.114 350.1.13.10 4.2.7.2.686 [id number] [facility] 2023-12-06 13:30:00 2023-12-06 13:29:27 Outpatient R HA JASWINDER [facility] [id number] [facility] 2023-11-27 00:00:00 2023-11-28 12:48:13 Telephone Jaswinder Haan [facility] 1.2.840.114 350.1.13.10 4.2.7.2.686 [id number] [facility] 2023-10-12 00:00:00 2023-10-12 00:00:00 Telephone Jaswinder Haan [facility] 1.2.840.114 350.1.13.10 4.2.7.2.686 [id number] [facility] 2023-08-25 00:00:00 2023-08-25 00:00:00 Refill Josue Haen Prem [facility] 1.2.840.114 350.1.13.10 4.2.7.2.686 [id number] [facility] 2023-08-21 13:00:00 2023-08-21 13:32:03 Outpatient R HA, JASWINDER [facility] [id number] [facility] 2023-08-21 13:00:00 2023-08-21 13:32:03 Office Visit Jaswinder Ha [facility] 1.2.840.114 350.1.13.10 4.2.7.2.686 [id number] [facility] 2023-07-16 09:53:00 2023-07-16 12:04:00 Emergency X JESUSITA OWEN [facility] ERT [id number] [facility] 2023-07-16 09:53:00 2023-07-16 12:04:00 Emergency Jesusita Owen [facility] 1.2840.114 350.1.13.10 4.2.7.2.686 [id number] [facility] 2023-06-09 00:00:00 2023-06-09 00:00:00 Telephone Jaswinder Ha [facility] 1.2840.114 350.1.13.10 4.2.7.2.686 [id number] [facility] 2023-05-18 14:00:00 2023-05-18 14:00:00 Office Visit Jaswinder Ha [facility] 1.2.840.114 350.1.13.10 4.2.7.2.686 [id number] [facility] 2023-05-18 14:00:00 2023-05-18 13:57:50 Outpatient R JASWINDER HA [facility] [id number] [facility] 2023-05-18 00:00:00 2023-05-18 00:00:00 Orders Only Doctor Unassigned, [place] [facility] 1.2840.114 350.1.13.10 4.2.7.2.686 [id number] [facility] 2023-03-29 00:00:00 2023-03-29 00:00:00 Telephone Jaswinder Ha [facility]LL[facility] 1.2.840.114 350.1.13.10 4.2.7.2.686 [id number] [facility] 2023-02-15 14:00:00 2023-02-15 15:52:38 Outpatient JASWINDER HATCH [facility] [id number] [facility] 2023-02-15 14:00:00 2023-02-15 15:52:38 Office Visit Jaswinder Ha [facility] 1.2.840.114 350.1.13.10 4.2.7.2.686 [id number] [facility] 2022-11-28 00:00:00 2022-11-28 00:00:00 Telephone Curtis Pandey [facility] 1.2.840.114 350.1.13.10 4.2.7.2.686 [id number] [facility] 2022-11-14 13:00:00 2022-11-14 14:11:50 Outpatient R JASWINDER HA [facility] [id number] [facility] 2022-11-14 13:00:00 2022-11-14 14:11:50 Office Visit Jaswinder Ha [facility] 1.2.840.114 350.1.13.10 4.2.7.2.686 [id number] [facility] 2022-10-19 00:00:00 2022-10-19 00:00:00 Maverick Pringle MD: [address] [place] [address] , Ph. [phone] [facility] [id number] [facility] 2022-09-30 00:00:00 2022-09-30 00:00:00 Outpatient FOG_Kai Scott AOS[facility] AOSM [id number] [facility] 2022-09-30 00:00:00 2022-09-30 00:00:00 Outpatient FOG_Kai Scott AOSM AOSM [id number] [facility] 2022-09-30 00:00:00 2022-09-30 00:00:00 Outpatient FOG_Kai Scott AOSM AOSM [id number] [facility] 2022-09-30 00:00:00 2022-09-30 00:00:00 Outpatient FOG_Kai Scott AOSM AOSM [id number] [facility] 2022-09-30 00:00:00 2022-09-30 00:00:00 Outpatient FOG_Kai Scott AOSM AOSM [id number] [facility] 2022-09-30 00:00:00 2022-09-30 00:00:00 Outpatient FOG_Kai Scott AOSM AOSM [id number] [facility] 2022-09-30 00:00:00 2022-09-30 00:00:00 Outpatient FOG_Kai Scott AOSM AOSM [id number] [facility] 2022-09-30 00:00:00 2022-09-30 00:00:00 Outpatient FOG_Kai Scott AOSM AOSM [id number] [facility] 2022-09-30 00:00:00 2022-09-30 00:00:00 Outpatient FOG_Kai Scott AOSM AOSM [id number] [facility] 2022-09-28 00:00:00 2022-09-28 00:00:00 Maverick Pringle MD: [address] , Ph. [phone] [facility] [place] [facility] [place] [facility] [id number] [facility] 2022-09-12 00:00:00 2022-09-12 00:00:00 Outpatient FOG_Kai Scott AOSM AOSM [id number] [facility] 2022-09-12 00:00:00 2022-09-12 00:00:00 Outpatient FOGSilver Scott AOSM AOSM [id number] [facility] 2022-09-09 00:00:00 2022-09-09 00:00:00 Outpatient ESTHELA_Kai Scott AOSM AOSM [id number] [facility] 2022-09-07 00:00:00 2022-09-07 00:00:00 Maverick Pringle MD: [address] [place] [address] , Ph. [phone] [facility] [place] [facility] [place] [facility] [id number] [facility] 2022-09-06 00:00:00 2022-09-06 00:00:00 Outpatient FOG_Viet Whipple AOSM AOSM [id number] [facility] 2022-09-06 00:00:00 2022-09-06 00:00:00 Outpatient FOGRafiq Whipple AOSM AOSM [id number] [facility] 2022-08-25 00:00:00 2022-08-25 00:00:00 Outpatient FOGRafiq Whipple AOSM AOSM [id number] [facility] 2022-08-25 00:00:00 2022-08-25 00:00:00 Outpatient ESTHELA_Viet Whipple AOSM AOSM [id number] [facility] 2022-08-22 08:25:00 2022-08-23 14:20:00 Inpatient LARISSA [place] [facility] [id number] 2022-08-22 00:00:00 2022-08-22 00:00:00 Maverick Pringle MD: [address] [place] [address] , Ph. [phone] [facility] [place] [facility] [place] [facility] [id number] [facility] 2022-08-15 13:00:00 2022-08-15 13:30:00 Office Visit Jaswinder Ha [facility] 1.2.840.114 350.1.13.10 4.2.7.2.686 [id number] [facility] 2022-08-15 13:00:00 2022-08-15 13:00:00 Outpatient JASWINDER HATCH [facility] [id number] [facility] 2022-08-13 00:00:00 2022-08-13 00:00:00 Outpatient Shen Whipple AOSM AOSM [id number] [facility] 2022-08-13 00:00:00 2022-08-13 00:00:00 Outpatient FOGRafiq Whipple AOSM AOSM [id number] [facility] 2022-08-13 00:00:00 2022-08-13 00:00:00 Outpatient FOGRafiq Whipple AOSM AOSM [id number] [facility] 2022-08-13 00:00:00 2022-08-13 00:00:00 Outpatient Shen Whipple AOSM AOSM [id number] [facility] 2022-08-10 16:02:00 2022-08-10 16:02:00 Outpatient Maverick Pringle HCACL LABO [id number] [facility] 2022-08-10 10:32:00 2022-08-10 10:32:00 Outpatient Maverick Vasques HCAT[facility] RADI [id number] [facility] 2022-08-08 00:00:00 2022-08-08 00:00:00 Outpatient ESTHELA_Viet Whipple AO AO [id number] [facility] 2022-08-03 00:00:00 2022-08-03 00:00:00 Telephone Jaswinder Ha [facility] 1.2.840.114 350.1.13.10 4.2.7.2.686 [id number] [facility] 2022-08-03 00:00:00 2022-08-03 00:00:00 Maverick Pringle MD: [address] [place] [address] , Ph. [phone] [facility] [place] [facility] [place] [facility] [id number] [facility] 2022-07-28 00:00:00 2022-07-28 00:00:00 Outpatient Shen Whipple AO AO [id number] [facility] 2022-07-22 00:00:00 2022-07-22 00:00:00 Tyron Dotson MD: [address] [place], [place] [address] , Ph. [phone] [facility] [place] [facility] [place] [facility] [id number] [facility] 2022-07-19 00:00:00 2022-07-19 00:00:00 Outpatient Shen Whipple AO AO [id number] [facility] 2022-07-19 00:00:00 2022-07-19 00:00:00 Outpatient Shen [facility] [id number] [facility] 2022-07-14 10:15:00 2022-07-14 10:30:00 Pilling Machine Operator Visit Armando, Reji Lab Main Jaswinder Ha [facility] 1.2.840.114 350.1.13.10 4.2.7.2.686 [id number] [facility] 2022-07-14 10:15:00 2022-07-14 10:15:00 Outpatient JASWINDER HATCH [facility] [id number] [facility] 2022-05-20 00:00:00 2022-05-20 00:00:00 Outpatient Shen Whipple AO AO [id number] [facility] 2022-05-20 00:00:00 2022-05-20 00:00:00 Tyron Dotson MD: [address] [place] [phone] , Ph. [phone] [place] [place] - FOG_[facility] [id number] [facility] 2022-05-12 14:00:00 2022-05-12 14:57:25 Outpatient JASWINDER [facility]ATCH [facility] [id number] [facility] 2022-05-12 14:00:00 2022-05-12 14:57:25 Office Visit Jaswinder Ha [facility] 1..840.114 350.1.13.10 4.2.7.2.686 [id number] [facility] 2022-04-08 00:00:00 2022-04-08 00:00:00 Outpatient Shen LIRIANO AO [id number] [facility] 2022-04-05 00:00:00 2022-04-05 00:00:00 Orders Only Doctor Unassigned, [place] [facility] 1.840.114 350.1.13.10 4.2.7.2.686 [id number] [facility] 2022-04-01 00:00:00 2022-04-01 00:00:00 Outpatient FOG_Mauri_Davian negron_ [facility] [id number] [facility] 2022-04-01 00:00:00 2022-04-01 00:00:00 Tyron Dotson MD: [address] [place] [phone] , Ph. [phone] [facility] - [facility] [place] - [facility] [id number] [facility] 2022-03-21 15:30:00 2022-03-21 15:52:29 Office Visit Davie Pandeylshan [facility] 1.840.114 350.1.13.10 4.2.7.2.686 [id number] [facility] 2022-03-21 15:30:00 2022-03-21 15:52:29 Outpatient R KATHERIN [facility] [id number] [facility] 2022-03-21 15:30:00 2022-03-21 15:30:00 Outpatient R KATHERIN [facility] [id number] [facility] 2022-03-21 00:00:00 2022-03-21 00:00:00 Telephone aJswinder Ha [facility] 1..840.114 350.1.13.10 4.2.7.2.686 [id number] [facility] 2022-03-08 00:00:00 2022-03-08 00:00:00 Telephone Jaswinder Ha [facility] 1.840.114 350.1.13.10 4.2.7.2.686 [id number] [facility] 2022-02-21 13:00:00 2022-02-21 13:00:00 Outpatient DAVIE [facility] [id number] [facility] 2022-02-21 13:00:00 2022-02-21 13:00:00 Outpatient Margie PANDEY [facility] [id number] [facility] 2022-02-21 00:00:00 2022-02-21 00:00:00 Outpatient FOG_Mauri_Davian negron_ [facility] [id number] [facility] 2022-02-21 00:00:00 2022-02-21 00:00:00 Outpatient Tyron Dotson [facility] [id number] 2022-02-21 00:00:00 2022-02-21 00:00:00 Tyron Dotson MD: [address] [place] [phone] , Ph. [phone] [place] [facility] [id number] [facility] 2022-02-09 11:00:00 2022-02-09 12:22:57 Outpatient JASWINDER [facility]ATCH [facility] [id number] [facility] 2022-02-09 11:00:00 2022-02-09 12:22:57 Office Visit Jaswinder Ha [facility] 1..114 350.1.13.10 4.2.7.2.686 [id number] [facility] 2022-02-09 00:00:00 2022-02-09 00:00:00 Orders Only Doctor Unassigned, [place] [facility] 1.840.114 350.1.13.10 4.2.7.2.686 [id number] [facility] 2022-01-26 00:00:00 2022-01-26 00:00:00 Telephone Katherin [facility] 1.84.114 350.1.13.10 4.2.7.2.686 [id number] [facility] 2022-01-25 00:00:00 2022-01-25 00:00:00 [facility] 1.84.114 350.1.13.10 4.2.7.2.686 [id number] [facility] 2022-01-24 10:30:00 2022-01-24 10:30:00 Outpatient JASWINDER [facility]ATCH [facility] [id number] [facility] 2022-01-17 00:00:00 2022-01-17 00:00:00 Outpatient ESTHELA_Mauri_Davian negron_ AO AO [id number] [facility] 2022-01-17 00:00:00 2022-01-17 00:00:00 Outpatient Tyron Dotson [facility] AO [id number] 2022-01-17 00:00:00 2022-01-17 00:00:00 Tyron Dotson MD: [address] [place] [phone] , Ph. [phone] [facility] [place] [facility] [id number] [facility] 2022-01-11 00:00:00 2022-01-11 00:00:00 Telephone Jaswinder Ha [facility] 1.840.114 350.1.13.10 4.2.7.2.686 [id number] [facility] 2022-01-08 02:10:00 2022-01-08 02:10:00 Outpatient FOG_Viet Whipple AOSM AO [id number] [facility] 2022-01-03 11:53:00 2022-01-03 11:53:00 Outpatient Shen Whipple AOSM AOSM [id number] [facility] 2022-01-03 00:00:00 2022-01-03 00:00:00 Tyron Dotson MD: [address] [place] [address] , Ph. [phone] [facility] [place] [facility] [place] [facility] [id number] [facility] 2022-01-03 00:00:00 2022-01-03 00:00:00 Outpatient Tyron Dotson AOBRIAN AO [id number] 2021-12-27 09:38:00 2021-12-27 11:09:00 Emergency [facility] [id number] [facility] 2021-12-27 09:38:00 2021-12-27 11:09:00 Emergency Tyron Frances HCATO ANDI [id number] [facility] 2021-12-27 01:37:00 2021-12-27 01:37:00 Outpatient Shen Whipple AOSM AO [id number] [facility] 2021-12-27 01:37:00 2021-12-27 01:37:00 Outpatient Shen Whipple AOSM AOSM [id number] [facility] 2021-12-13 00:00:00 2021-12-13 00:00:00 Telephone Jaswinder Ha [facility] 1.2.840.114 350.1.13.10 4.2.7.2.686 [id number] [facility] 2021-09-20 13:00:00 2021-09-20 14:30:55 Outpatient JASWINDER [facility]ATCH [facility] [id number] [facility] 2021-09-20 13:00:00 2021-09-20 14:30:55 Office Visit Jaswinder Ha [facility] 1.840.114 350.1.13.10 4.2.7.2.686 [id number] [facility] 2021-09-20 13:00:00 2021-09-20 13:00:00 Outpatient JASWINDER [facility]ATCH [facility] [id number] [facility] 2021-08-25 00:00:00 2021-08-25 00:00:00 [facility] 1.840.114 350.1.13.10 4.2.7.2.686 [id number] [facility] 2021-08-17 14:30:00 2021-08-17 15:03:07 Office Visit Katherin [facility] 1.84.114 350.1.13.10 4.2.7.2.686 [id number] [facility] 2021-08-17 14:30:00 2021-08-17 15:03:07 [facility] [id number] 2021-08-17 14:30:00 2021-08-17 14:30:00 Outpatient Margie PANDEY [facility] [id number] [facility] 2021-08-17 00:00:00 2021-08-17 00:00:00 Orders Only Doctor Unassigned, [place] [facility] 1.840.114 350.1.13.10 4.2.7.2.686 [id number] [facility] 2021-06-21 13:30:00 2021-06-21 16:34:12 Office Visit Jaswinder Ha [facility] 1..840.114 350.1.13.10 4.2.7.2.686 [id number] [facility] 2021-06-21 13:30:00 2021-06-21 16:34:12 Outpatient R JOSUE HAEN [facility] [id number] [facility] 2021-06-21 13:30:00 2021-06-21 13:30:00 Outpatient JOSUE HATCHEN [facility] [id number] [facility] 2021-06-07 00:00:00 2021-06-07 00:00:00 Telephone Jaswinder Ha [facility] 1..840.114 350.1.13.10 4.2.7.2.686 [id number] [facility] 2021-05-31 14:56:12 2021-05-31 23:59:00 Outpatient SAMEER RAMIREZ [facility] [id number] [facility] 2021-05-31 14:56:12 2021-05-31 23:59:00 Hospital Encounter Sameer Adler [facility] ..840.114 350.1.13.10 4.2.7.2.686 [id number] [facility] 2021-05-27 10:15:00 2021-05-27 10:15:00 Outpatient Margie JASWINDER HA [facility] [id number] [facility] 2021-05-27 09:51:49 2021-05-27 10:06:49 Pilling 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 PROFESSIO [facility] .84.114 350.1.13.10 4.2.7.2.686 [id number] [facility] 2021-05-27 00:00:00 2021-05-27 00:00:00 Orders Only Doctor Unassigned, [place] [facility] 1.20.114 350.1.13.10 4.2.7.2.686 [id number] [facility] 2021-05-25 13:40:00 2021-05-25 14:19:53 Outpatient SAMEER RAMIREZ [facility] [id number] [facility] 2021-05-25 13:12:58 2021-05-25 14:19:53 [facility] 1.840.114 350.1.13.10 4.2.7.2.686 [id number] [facility] 2021-05-11 13:00:00 2021-05-11 13:46:33 Outpatient CURTIS CAREY [facility] [id number] [facility] 2021-05-11 12:48:18 2021-05-11 13:46:33 Office Visit Katherin [facility] 1.114 350.1.13.10 4.2.7.2.686 [id number] [facility] 2021-05-11 13:00:00 2021-05-11 13:00:00 Outpatient DAVIE CAREYLSHAN [facility] [id number] [facility] 2021-04-29 00:00:00 2021-04-29 00:00:00 Orders Only Doctor Unassigned, [place] [facility] 1.84114 350.1.13.10 4.2.7.2.686 [id number] [facility] 2021-04-19 00:00:00 2021-04-19 00:00:00 Jaswinder Live [facility] 1.2.840.114 350.1.13.10 4.2.7.2.686 [id number] [facility] 2021-03-22 12:41:25 2021-03-22 14:21:16 Office Visit Jaswinder Ha [facility] 1.2.840.114 350.1.13.10 4.2.7.2.686 [id number] [facility] 2021-03-22 13:00:00 2021-03-22 13:00:00 Outpatient JASWINDER HATCH [facility] [id number] [facility] 2021-03-08 00:00:00 2021-03-08 00:00:00 Davie Pattersonlshan [facility] 1.2.840.114 350.1.13.10 4.2.7.2.686 [id number] [facility] 2021-02-11 15:30:00 2021-02-11 16:02:49 Outpatient RUT GARCIA [facility] [id number] [facility] 2020-12-16 13:00:00 2020-12-16 13:00:00 Outpatient JASWINDER HATCH [facility] [id number] [facility] 2020-11-16 09:00:00 2020-11-16 09:00:00 Outpatient R [facility] [id number] [facility] 2020-11-06 15:46:17 2020-11-06 23:59:00 Outpatient CURTIS CAREY [facility] [id number] [facility] 2020-11-06 00:00:00 2020-11-06 00:00:00 Outpatient R CURTIS PANDEY [facility] [id number] [facility] 2020-10-25 00:00:00 2020-10-25 00:00:00 [facility] [id number] [facility] 2020-10-15 13:00:00 2020-10-15 13:00:00 Outpatient R KATHERIN [facility] [id number] [facility] 2020-09-26 13:00:00 2020-09-26 13:00:00 Outpatient R [facility] [id number] [facility] 2020-09-25 16:00:00 2020-09-25 16:00:00 Outpatient R [facility] [id number] [facility] 2020-09-14 13:30:00 2020-09-14 13:30:00 Outpatient JASWINDER HATCH [facility] [id number] [facility] 2020-07-31 13:00:00 2020-07-31 13:00:00 [facility] [id number] [facility] 2020-07-22 14:12:24 2020-07-22 15:24:24 Office Visit Katherin [facility] 1..114 350.1.13.10 4.2.7.2.686 [id number] 2020-07-22 14:30:00 2020-07-22 14:30:00 [facility] [id number] [facility] 2020-07-22 00:00:00 2020-07-22 00:00:00 Orders Only Doctor Unassigned, [place] [facility] 1.0.114 350.1.13.10 4.2.7.2.686 [id number] 2020-07-14 14:00:00 2020-07-14 14:00:00 Outpatient R HUGOBHUMI [facility] [id number] [facility] 2020-06-15 14:30:00 2020-06-15 14:30:00 Outpatient JASWINDER HATCH [facility] [id number] [facility] 2020-05-27 18:00:00 2020-05-27 18:00:00 Outpatient R GONZALEZ MCMANUS [facility] [id number] [facility] 2020-04-27 09:00:00 2020-04-27 09:00:00 Outpatient R [facility] [id number] [facility] 2020-04-03 15:00:00 2020-04-03 15:00:00 Outpatient ANUPAM ACEVEDO [facility] [id number] [facility] 2020-03-30 14:30:00 2020-03-30 14:30:00 Outpatient CURTIS CAREY [facility] [id number] [facility] 2020-03-11 13:00:00 2020-03-11 13:00:00 Outpatient JASWINDER HATCH [facility] [id number] [facility] 2020-01-08 00:00:00 2020-01-08 00:00:00 Outpatient CURTIS CAREY [facility] [id number] [facility] 2019-12-23 13:00:00 2019-12-23 13:00:00 Outpatient CURTIS CAREY [facility] [id number] [facility] 2019-12-11 13:30:00 2019-12-11 13:30:00 Outpatient JASWINDER HATCH [facility] [id number] [facility] 2019-09-09 14:00:00 2019-09-09 14:00:00 Outpatient JASWINDER HATCH [facility] [id number] [facility] Results Test Description Test Time Test Comments Results Result Co mments Source [facility] [id number] 20:36:00* Test Item Value Reference Range Interpretation Comme nts POCT HBA1C (test code = 4548-4) 7.6 % 4-6 A Lab Interpretation (test cod e = 96541-5) Abnormal [facility] Hemoglobin A1C [id number] 20:36:00* Test Item Value Reference Range Interpretation Comme nts POCT HBA1C (test code = 4548-4) 7.6 % 4-6 A Lab Interpretation (test cod e = 02747-1) Abnormal [facility] Hemoglobin A1C [id number] 20:36:00* Test Item Value Reference Range Interpretation Comme [facility] POCT HBA1C (test code = 4548-4) 7.6 % 4-6 A Lab Interpretation (test cod e = 52752-8) Abnormal [facility] CHE[facility] 2 [id number] 17:27:15PROCEDURE:XR CHEST 2 VW ORDERING PHYSICIAN: JESUSITA [...] within normal limits. Status postreverse right shoulder arthroplasty.[facility] HEMOGLOBIN A1C [id number] 19:25:00* Test Item Value Reference Range Interpretation Comme [facility] POCT HBA1C (test code = 4548-4) 4.4 % 4-6 [facility] HEMOGLOBIN A1C [id number] 19:25:00* Test Item Value Reference Range Interpretation Comme [facility] POCT HBA1C (test code = 4548-4) 4.4 % 4-6 [facility] HEMOGLOBIN A1C [id number] 18:43:00* Test Item Value Reference Range Interpretation Comme nts POCT HBA1C (test code = 4548-4) 6.8 % 4-6 A Lab Interpretation (test cod e = 91245-9) Abnormal [facility] HEMOGLOBIN A1C [id number] 18:43:00* Test Item Value Reference Range Interpretation Comme [facility] POCT HBA1C (test code = 4548-4) 6.8 % 4-6 A Lab Interpretation (test cod e = 02082-5) Abnormal [facility] HEMOGLOBIN A1C [id number] 18:31:00* Test Item Value Reference Range Interpretation Comme [facility] POCT HBA1C (test code = 4548-4) 6.6 % 4-6 A Lab Interpretation (test cod e = 26099-9) Abnormal [facility] HEMOGLOBIN A1C [id number] 18:31:00* Test Item Value Reference Range Interpretation Comme [facility] POCT HBA1C (test code = 4548-4) 6.6 % 4-6 A Lab Interpretation (test cod e = 53636-8) Abnormal [facility] 11:14:00* Test Item Value Reference Range Interpretation Comme nts GLUBED (test code = GLUBED) 233 mg/dL 60-125 H [id number] 11:00:00* Test Item Value Reference Range Interpretation Comme nts glubed (test code = glubed) 233 mg/dL 60-125 H performing lab: (test code = performing lab:) [facility] METABOLIC [id number] 06:30:00* Test Item Value Reference Range Interpretation [...] CA) 8.4 mg/dL 8.2-10.1 N CBC W/AUTO [id number] 06:06:00* Test Item Value Reference Range Interpretation [...] 0 % 0-0 N SPECIMEN COMMENT: POD #[id number] 05:30:00* Test Item Value Reference Range Interpretation Comme nts GLUBED (test code = GLUBED) 147 mg/dL 60-125 H [id number] 05:17:00* Test Item Value Reference Range Interpretation Comme nts glubed (test code = glubed) 147 mg/dL 60-125 H performing lab: (test code = performing lab:) [facility] 19:52:00* Test Item Value Reference Range Interpretation Comme nts GLUBED (test code = GLUBED) 292 mg/dL 60-125 H [id number] 19:39:00* Test Item Value Reference Range Interpretation Comme nts glubed (test code = glubed) 292 mg/dL 60-125 H performing lab: (test code = performing lab:) [facility] 18:08:00* Test Item Value Reference Range Interpretation Comme nts GLUBED (test code = GLUBED) 206 mg/dL 60-125 H [id number] 17:56:00* Test Item Value Reference Range Interpretation Comme nts glubed (test code = glubed) 206 mg/dL 60-125 H performing lab: (test code = performing lab:) [facility]- XR SHOULDER 1 V [id number] 16:00:00 [facility] 1955 Sex: F Patient Name: TALIB MARKS Unit No: [id number] EXAMS: CPT CODE: [id number] XR SHOULDER 1V RT 10475 AP portable right shoulder COMMENT: The patient is status post reverse prosthesis placement which is articulating normally. at 1600 Reported and signed by: Yash Delgado MD CC: Maverick Pringle MD; Hany Cardona DO Technologist: Carmen Hilton(R) Transcribed D/ (1600) [facility] NAME: TALIB MARKS [address] [facility] PHYS: Hany Javed DO : 1955 AGE: 67 SEX: F [place] [address] LOC: Y.O20 A PHONE #: EXAM DATE: 08/22/2022 STATUS: ADM IN FAX #: [phone] RAD #: D/C DT PAGE 1 Signed Report Patient Name: TALIB MARKS Unit No: [id number] EXAMS: CPT CODE: [id number] XR SHOULDER 1 V RT 36690 (Continued) Orig Print D/T: S: 08/22/2022 (1603) [facility] NAME: TALIB MARKS [address] [facility] PHYS: Hany Javed DO : 1955 AGE: 67 SEX: F [place] [address] LOC: Y.O20 A PHONE #: [phone] EXAM DATE: 08/22/2022 STATUS: ADM IN FAX #: [phone] RAD #: D/C DT PAGE 2 Signed [id number] 09:42:00* Test Item Value Reference Range Interpretation Comme nts GLUBED (test code = GLUBED) 145 mg/dL 60-125 H [id number] 09:30:00* Test Item Value Reference Range Interpretation Comme nts glubed (test code = glubed) 145 mg/dL 60-125 H performing lab: (test code = performing lab:) [facility] [id number] 19:15:00* Test Item Value Reference Range Interpretation Comme nts POCT HBA1C (test code = 4548-4) 7.0 % 4-6 A Lab Interpretation (test cod e = 61966-2) Abnormal [facility] A[facility] [id number] 19:15:00* Test Item Value Reference Range Interpretation Comme nts POCT HBA1C (test code = 4548-4) 7.0 % 4-6 A Lab Interpretation (test cod e = 28358-8) Abnormal [facility] RockPROTHROMBIN [id number] 10:45:00* Test Item Value Reference Range Interpretation [...] on Heparin Drip? NOSPECIMEN COMMENT: 1THROMBOPLASTIN TIME [id number] 10:45:00* Test Item Value Reference Range Interpretation [...] lab: (test code = performing lab:) [facility] ehmspat3128-07-31 10:15:00 * Test Item Value Reference Range Interpretation Comme nts PTT activated (test code = P TT activated) 21.1 secs 26.6-34.6 L performing lab: (test code = performing lab:) [facility] (HA1C)2022-08-10 20:53:00* Test Item Value [...] fructosamineshould be considered for these patients.DONE AT: [facility] [address] [place] [address] GLYCOSYLATED HEMOGLOBIN (HA1C)2022-08-10 20:52:00* Test Item Value [...] be considered for these patients. COMPREHENSIVE METABOLIC [id number] 15:27:00* Test Item Value Reference Range Interpretation [...] ALKP) 81 U/L 46-116 N CBC W/AUTO [id number] 14:34:00* Test Item Value Reference Range Interpretation [...] N CBC W Auto Differential panel - [id number] 14:10:00* Test Item Value Reference Range Interpretation [...] performing lab: (test code = performing lab:) [facility] MedicineComprehensive metabolic 2000 panel - Serum or [id number] 14:10:00* Test Item Value Reference Range Interpretation [...] performing lab: (test code = performing lab:) [facility]cosylated hemoglobin (ha1c)2022-08-10 14:10:00* Test Item Value Reference Range Interpretation Comme nts Hemoglobin A1c/Hemoglobin.to maria dolores in Blood (test code = 4548-4) 6.9 % 4.8-5.9 H performing lab: (test code = performing lab:) [facility] MedicineMethicillin resistant Staphylococcus aureus [Presence] in Specimen by Organism specific [id number] 14:10:00* Test Item Value Reference Range Interpretation Comme nts MRSA surveillance screen (te st code = MRSA surveillance screen) see below performing lab: (test code = performing lab:) [facility] [id number] 14:10:00 * Test Item Value Reference Range Interpretation Comme nts mssa PCR surveillance screen (test code = mssa PCR surveillance screen) see below performing lab: (test code = performing lab:) [facility] CT UP EXTREM W/O CONT [id number] 11:41:00 [facility] : 1955 Sex: F Patient Name: TALIB MARKS Unit No: [id number] EXAMS: CPT CODE: [id number] CT UP EXTREM W/O CONT [place] [address]JT OF THE RIGHT SHOULDER WITH SAGITTAL AND [...] with ACR practice standards and adherence to annual giving officer's recommendations. Posttraumatic and degenerative changes are present as described. There is no evidence for rotator cuff atrophy. There is no evidence for an intra-articular loose body. at 1141 Reported and signed by: Yash Delgado MD CC: Maverick Pringle MD; Tyron Dotson MD Technologist: Thomas Walden,RT(R) CTDI: DLP: Trnscrpt: 08/10/2022 (1141) t.[email or web address].JCL [facility] NAME: TALIB MARKS [address] [facility] PHYS: Maverick Echeverria MD : 1955 AGE: 67 SEX: F [place], [place] [address] LOC: Y.RAD PHONE #: [phone] EXAM DATE: 08/10/2022 STATUS: REG CLI FAX #: [phone] RAD #: D/C DT PAGE 1 Signed Report Patient Name: TALIB MARKS Unit No: [id number] EXAMS: CPT CODE: [id number] CT UP EXTREM W/[place] [address] (Continued) Orig Print D/T: S: 08/10/2022 (1144) [facility] NAME: TALIB MARKS [address] [facility] PHYS: UMMZACARIAS OnealMaverick Pringle MD : 1955 AGE: 67 SEX: F [place], [place] [address] LOC: Y.RAD PHONE #: [phone] EXAM DATE: 08/10/2022 STATUS: REG CLI FAX #: [phone] RAD #: D/C DT PAGE 2 Signed ReportPOCT HEMOGLOBIN A1C TEST 2022-05-12 19:09:00* Test Item Value Reference Range Interpretation Comme [facility] POCT HBA1C (test code = 4548-4) 6.9 % 4-6 A Lab Interpretation (test cod e = 58571-2) [facility] [id number] 19:09:00* Test Item Value Reference Range Interpretation Comme [facility] POCT HBA1C (test code = 4548-4) 6.9 % 4-6 A Lab Interpretation (test cod e = 55043-5) Abnormal [facility] XR HUMERUS 2 + V [id number] 07:06:00 [facility] 1955 Sex: F Patient Name: TALIB MARKS Unit No: [id number] EXAMS: CPT CODE: [id number] XR HUMERUS 2 + [place] [id number] Rightshoulder 2 views COMMENT: There is a comminuted fracture of the proximal humerus with an oblique humeral neck fracture with impaction and a greater tuberosity fracture. Degenerative change is noted in the glenohumeral joint. at 0706 Reported and signed by: Yash Delgado MD CC: Tyron Dotson MD Technologist: RT Andrew.(R) Transcribed D/ (0706) [facility] [address] [facility] PHYS: Tyron Tiwari MD : 1955 AGE: 66 SEX: F [place] [address] LOC: KIANA PHONE #: [phone] EXAM DATE: 12/27/2021 STATUS: DEP ER FAX #: [phone] RAD #: D/C DT PAGE 1 Signed Report Patient Name: TALIB MARKS Unit No: [id number] EXAMS: CPT CODE: [id number] XR HUMERUS 2 + V RT [id number] (Continued) Orig Print D/T: S: 12/28/2021 (0709) [facility] NAME: TALIB MARKS [address] [facility] PHYS: Tyron Tiwari MD : 1955 AGE: 66 SEX: F [place] [address] LOC: KIANA PHONE #: [phone] EXAM DATE:12/27/2021 STATUS: DEP ER FAX #: [phone] RAD #: D/C DT PAGE 2 Signed Report
[2024-06-23] MEDS ORDERED: ONDANSETRON 4 MG/2 ML VIAL ONE (19:53)
[2024-06-23] MEDS ORDERED: NA CHLORIDE 0.9% 1,000 ML ONE (19:53)
[2024-06-23 20:01] LABS: Absolute Basophils 0.1 K/uL (0-0.5); Absolute Lymphocytes (CBC) 0.7 K/uL (0.7-4.9); Absolute Monocytes 0.2 K/uL (0.1-1.3); Absolute Neutrophil 11.6 K/uL (1.8-8.0); Basophils % 0.8 % (0-1.3); Eosinophils % 0.3 % (0-4.4); Hematocrit 39.2 % (36.0-45.0); Hemoglobin 13.2 g/dL (12.0-15.0); Lymphocytes % 5.2 % (15.3-44.8); MCH 32.5 pg (27.0-35.0); MCHC 33.7 g/dL (32.0-36.0); MCV 96.5 fL (80-100); MPV 7.8 fL (7.6-11.3); Monocytes % 1.9 % (3.3-12.3); Neutrophils % 91.8 % (41.7-73.7); Platelets 304 thou/uL (152-406); RBC Red Blood Cell Count 4.06 M/uL (3.86-4.86); Red Cell Distribution Width 13.3 % (12.1-15.2)
[2024-06-23 20:17] LABS: Albumin 3.7 g/dL (3.4-5.0); Albumin/Globulin Ratio 1.1 (1.1-1.8); Anion Gap 10.4 mEq/L (5.0-15.0); Bilirubin Total 0.3 mg/dL (0.2-1.0); Globulin 3.3 g/dL (2.3-3.5); Potassium 3.4 mEq/L (3.5-5.1); Troponin High Sensitivity 6.1 pg/mL (<58.9)
[2024-06-23 20:28] LABS: SARS-CoV-2 Antigen CONTROL BLUE LINE VIS/BG OK; SARS-CoV-2 Antigen Rapid Res Negative (Negative)
[2024-06-23 21:04] LABS: Blood Morphology Comment NOT SEEN (NOT SEEN); Platelet Estimate ADEQ; White Blood Cell Scan OK (OK)
--- NOTE | 2024-06-23 21:09 | RAD REPORT ---
EXAMINATION: CT ABDOMEN AND PELVIS WITH CONTRAST CLINICAL INDICATION: Abdominal pain TECHNIQUE: CT abdomen and pelvis was performed, after the administration of 100 cc Isovue-300.. Sagit maria dolores and coronal reconstructions were obtained. One or more of the following dose reduction techniques were used: Automated exposure control, adjustment of the mA and kV according to patient si ze, and iterative reconstruction. Unless otherwise specified, incidental findings do not require dedicated imaging follow-up. [id number]. Oral contrast was not given which limits evaluation of bowel and appendix. COMPARISON: .2015 FINDINGS: Liver appears unremarkable. Cholecystectomy. Splenic granulomata. Pancreas and kidneys unremarkable Small bilateral adrenal nodules unchanged from 1999 compatible with adenomas. Hysterectomy. No adnexal mass. No evidence of diverticulitis. Ventral hernia repair. Small to moderate umbilical hernia contains fat. A ventral hernia a couple jacki timeters superiorly also contains fat. The hernia sac Postsurgical changes right. Mild chronic compression deformity L2 vertebral body The wall distal stomach appears mildly thickened Atherosclerosis Spondylosis lumbar spine results in spinal stenosis : IMPRESSION: The wall distal stomach appears mildly thickened. This could be secondary to incomplete distention or a mild gastritis Ventral and umbilical hernias containing fat. Previous ventral hernia repair.
[2024-06-23 21:18] LABS: Specific Gravity 1.015 (1.005-1.030); Sqamous Epithelial <5 /HPF (None Seen); Urine Bacteria None Seen /HPF (<20); Urine Bilirubin NEGATIVE (Negative); Urine Blood Negative (Negative); Urine Clarity Clear (Clear); Urine Color Colorless (Yellow); Urine Culture Reflex Order NOT NEEDED; Urine Glucose NEGATIVE (Negative); Urine Ketones 1+ (Negative); Urine Microscopic Reflex YN ORDER UMIC; Urine Mucus Slight /HPF (None Seen); Urine Nitrite NEGATIVE (Negative); Urine Protein NEGATIVE (Negative); Urine RBC <5 /HPF (None Seen); Urine Urobilinogen Normal (Normal); Urine WBC <5 /HPF (<5)
[2024-06-23] MEDS ORDERED: PANTOPRAZOLE 40 MG INJ ONE (21:19)
--- NOTE | 2024-06-23 21:21 | EDPHYS ---
Physician Documentation [facility] Name: Herminia Truong Age: 68 yrs Sex: Female : 1955 Arrival Date: 06/23/2024 Time: 18:48 Bed 15 Private MD: ED Physician Jakob Alexandra HPI: 06/23 19:38 This 68 yrs old Female presents to ER via Wheelchair with complaints of charly Diarrhea, Vomiting. 19:38 The patient presents to the emergency department with nausea, vomiting, that is charly continuous. Onset: The symptoms/episode began/occurred at 15:00. Possible causes: unknown. The symptoms are aggravated by nothing. The symptoms are alleviated by nothing. Associated signs and symptoms: Pertinent positives: nausea, vomiting. Severity of symptoms: At their worst the symptoms were mild in the emergency department the symptoms are unchanged. The patient has not experienced similar symptoms in the past. Historical: - Allergies: 19:12 Vancomycin; cm10 - PMHx: 19:12 broke right arm; Diabetes - IDDM; Hyperlipidemia; Hypertension; cm10 - PSHx: 19:12 Cholecystectomy; hernia; hysterectomy; heart cath; CT; right elbow replacement; cm10 - Immunization history:: Adult Immunizations up to date. - Infectious Disease History:: Denies. - Social history:: Smoking status: Patient denies any tobacco usage or history of. ROS: 19:40 Constitutional: Negative for fever, chills, and weight loss, Eyes: Negative for injury, charly pain, redness, and discharge, ENT: Negative for injury, pain, and discharge, Neck: Negative for injury, pain, and swelling, Cardiovascular: Negative for chest pain, palpitations, and edema, Respiratory: Negative for shortness of breath, cough, wheezing, and pleuritic chest pain, Back: Negative for injury and pain, : Negative for injury, bleeding, discharge, and swelling, MS/Extremity: Negative for injury and deformity, Skin: Negative for injury, rash, and discoloration, Neuro: Negative for headache, weakness, numbness, tingling, and seizure, Psych: Negative for depression, anxiety, suicide ideation, homicidal ideation, and hallucinations, Allergy/Immunology: Negative for hives, rash, and allergies, Endocrine: Negative for neck swelling, polydipsia, polyuria, polyphagia, and marked weight changes, Hematologic/Lymphatic: Negative for swollen nodes, abnormal bleeding, and unusual bruising, 19:40 Abdomen/GI: Positive for abdominal pain, nausea and vomiting, of the right upper quadrant, left upper quadrant, right lower quadrant and left lower quadrant, Exam: 19:40 Constitutional: This is a well developed, well nourished patient who is awake, alert, charly and in no acute distress. Head/Face: Normocephalic, atraumatic. Eyes: Pupils equal round and reactive to light, extra-ocular motions intact. Lids and lashes normal. Conjunctiva and sclera are non-icteric and not injected. Cornea within normal limits. Periorbital areas with no swelling, redness, or edema. ENT: Nares patent. No nasal discharge, no septal abnormalities noted. Tympanic membranes are normal and external auditory canals are clear. Oropharynx with no redness, swelling, or masses, exudates, or evidence of obstruction, uvula midline. Mucous membranes moist. Neck: Trachea midline, no thyromegaly or masses palpated, and no cervical lymphadenopathy. Supple, full range of motion without nuchal rigidity, or vertebral point tenderness. No Meningismus. Chest/axilla: Normal chest wall appearance and motion. Nontender with no deformity. No lesions are appreciated. Cardiovascular: Regular rate and rhythm with a normal S1 and S2. No gallops, murmurs, or rubs. Normal PMI, no JVD. No pulse deficits. Respiratory: Lungs have equal breath sounds bilaterally, clear to auscultation and percussion. No rales, rhonchi or wheezes noted. No increased work of breathing, no retractions or nasal flaring. Back: No spinal tenderness. No costovertebral tenderness. Full range of motion. Female : Normal external genitalia. Skin: Warm, dry with normal turgor. Normal color with no rashes, no lesions, and no evidence of cellulitis. MS/ Extremity: Pulses equal, no cyanosis. Neurovascular intact. Full, normal range of motion., bilateral aka Neuro: Awake and alert, GCS 15, oriented to person, place, time, and situation. Cranial nerves II-XII grossly intact. Motor strength 5/5 in all extremities. Sensory grossly intact. Cerebellar exam normal. Normal gait. Psych: Awake, alert, with orientation to person, place and time. Behavior, mood, and affect are within normal limits. 19:40 ECG was reviewed by the Attending Physician. 19:40 Abdomen/GI: Inspection: abdomen appears normal, Bowel sounds: normal, Palpation: mild abdominal tenderness, in all quadrants, Liver: no appreciated palpable abnormalities, Hernia: not appreciated, 19:42 ECG was reviewed by the Attending Physician. [facility] Vital Signs: 19:11 BP 122 / 53; Pulse 97; Resp 16; Temp 97.4; Pulse Ox 97% on R/A; Weight 63.5 kg; Height cm10 5 ft. 1 in. ; Pain 5/10; 20:35 BP 127 / 78; Pulse 96; Resp 17; Pulse Ox 97% ; cp4 21:53 BP 132 / 65; Pulse 103; Resp 18; Pulse Ox 99% ; cp4 19:11 Body Mass Index 26.45 (63.50 kg, 154.94 cm) cm10 19:11 Pain Scale: Adult cm10 MDM: 19:18 Medical Screening Exam initiated charly 19:40 Differential diagnosis: Nonspecific abd pain, gastritis, cholecystitis, pancreatitis, charly appendicitis, diverticulitis, viral gastroenteritis, gastroenteritis, bowel obstruction, coronary artery disease, cholecystitis, Cholelithiasis, diverticulitis, gastritis, Hepatitis, Irritable bowel syndrome. Data reviewed: vital signs, nurses notes, lab test result(s), EKG, radiologic studies, CT scan. Consideration of Admission/Observation Escalation of care including admission/observation considered. I considered the following discharge prescriptions or medication management in the emergency department Medications were administered in the Emergency Department. See MAR. Independent interpretation of the following test(s) in the Emergency Department EKG: See my EKG interpretation above. Test considered but Not performed: Ultrasound no abd usg. Historians other than the Patient: Family Member: daughter well ionformed. Care significantly affected by the following chronic conditions: Diabetes, Hypertension. 06/23 19:20 Order name: CBC with Diff; Complete Time: 21:11 [facility] 06/23 19:20 Order name: Comprehensive Metabolic Panel; Complete Time: 20:28 [facility] 06/23 19:20 Order name: Urinalysis w/ reflexes; Complete Time: 21:32 [facility] 06/23 19:20 Order name: Lipase; Complete Time: 20:28 [facility] 06/23 19:21 Order name: Flu; Complete Time: 20:46 [facility] 06/23 19:21 Order name: SARS RAPID; Complete Time: 20:46 [facility] 06/23 19:21 Order name: Troponin High Sensitivity; Complete Time: 20:28 [facility] 06/23 19:27 Order name: Glucose, Ancillary Testing; Complete Time: 19:37 [facility] 06/23 21:04 Order name: CBC Smear Scan; Complete Time: 21:11 [facility] 06/23 19:37 Order name: CT Abd/Pelvis - IV Contrast Only; Complete Time: 21:11 [facility] 06/23 19:21 Order name: EKG; Complete Time: 19:21 [facility] 06/23 19:21 Order name: EKG - Nurse/Tech; Complete Time: 19:45 [facility] EC:42 Rate is 98 beats/min. Rhythm is regular. QRS [place] is Normal. CO interval is normal. QRS charly interval is normal. QT interval is normal. No Q waves. T waves are Normal. No ST changes noted. Clinical impression: NSR w/ Non-specific ST/T Changes and No evidence of ischemia. Interpreted by me. Reviewed by me. Administered Medications: 19:57 Drug: NS 0.9% IV 1000 ml IV at 1000 ml once; to be given as a bolus over 60 minutes cp4 Route: IV; Rate: 1000 ml; Site: left forearm; 21:57 Follow up: Response: No adverse reaction; IV Status: Completed infusion cp4 19:57 Drug: Ondansetron IVP 4 mg IVP once; over 2 minutes Route: IVP; Site: left forearm; cp4 21:13 Follow up: Response: No adverse reaction cp4 21:28 Drug: Pantoprazole IVP 40 mg IVP once Route: IVP; Site: left forearm; cp4 21:54 Follow up: Response: No adverse reaction cp4 21:50 Drug: Ciprofloxacin PO 250 mg PO once Route: PO; cp4 21:54 Follow up: Response: No adverse reaction cp4 Point of Care Testing: Blood Glucose: 19:15 Blood Glucose: 160 mg/dL; cm10 Ranges: Critical Glucose Levels:Adult <50 mg/dl or >400 mg/dl <40 mg/dl or >180 mg/dl Disposition Summary: 06/23/24 21:20 Discharge Ordered Notes: Location: Home charly Problem: new charly Symptoms: have improved charly Condition: Stable charly Diagnosis - Vomiting charly - Diarrhea, unspecified charly - Abdominal pain, Generalized charly - Hypokalemia charly - Acute gastritis charly - UTI/ Urinary tract infection, site not specified charly Followup: charly - With: Private Physician - When: 2 - 3 days - Reason: Recheck today's complaints, Re-evaluation by your physician Followup: charly - With: Jennifer Winchester MD - When: 2 - 3 days - Reason: Recheck today's complaints, Re-evaluation by your physician Followup: charly - With: Elier Ann MD - When: 2 - 3 days - Reason: Recheck today's complaints, Re-evaluation by your physician Discharge Instructions: - Discharge Summary Sheet charly - Abdominal Pain, Adult charly - Food Choices to Help Relieve Diarrhea, Adult charly - Diarrhea, Adult charly - Potassium Content of Foods charly - Gastritis, Adult charly - Nausea and Vomiting, Adult charly - Gastritis, Adult, Ssbf-gs-Mvon charly - Nausea and Vomiting, Adult, Aivi-qs-Mmmq charly - Urinary Tract Infection, Adult, Hzne-ji-Gkbs charly - Abdominal Pain, Adult, Qkct-lg-Icly charly - Hypokalemia [facility] Forms: - Medication Reconciliation Form charly - Antibiotic Education charly - Prescription Opioid Use charly - Patient Portal Instructions [facility] - Leadership Thank You Letter [facility] Prescriptions: - ondansetron 4 mg Oral Tablet,disintegrating - take 1 tablet ORAL route every 6-8 hours for 5 days prn nausea vomiting; 20 charly tablet; Refills: 0, Product Selection Permitted - Carafate 1 gram Oral tablet - take 1 tablet ORAL route 4 times per day take on an empty stomach, beginning on charly waking and last dose at bedtime; 40 tablet; Refills: 0, Product Selection Permitted - Cipro 250 mg Oral tablet - take 1 tablet ORAL route every 12 hours; 10 tablet; Refills: 0, Product charly Selection Permitted - Protonix 40 mg Oral Tablet - take 1 tablet ORAL route once daily; 30 tablet; Refills: 0, Product Selection charly Permitted Signatures: Dispatcher [employer] Jakob Bolanos MD MD cha Martinez, Clarissa, RN RN cm10 Nela Beasley cp4
--- NOTE | 2024-06-23 21:21 | ER ---
Nurse's Notes [facility] Name: Herminia Truong Age: 68 yrs Sex: Female : 1955 Arrival Date: 06/23/2024 Time: 18:48 Bed 15 Private MD: Diagnosis: Vomiting;Diarrhea, unspecified;Abdominal pain, Generalized;Hypokalemia;Acute gastritis;UTI/ Urinary tract infection, site not specified Presentation: 06/23 19:11 Chief complaint: Patient states: VOMITING AND DIARRHEA ONSET TODAY AT 3PM. PT ALSO cm10 REPORTS BODY ACHES. Coronavirus screen: Client denies travel out of the [place] in the last 14 days. Ebola Screen: Patient denies travel to an Ebola-affected area in the 21 days before illness onset. No symptoms or risks identified at this time. Initial Sepsis Screen: Does the patient meet any 2 criteria? No. Patient's initial sepsis screen is negative. Does the patient have a suspected source of infection? No. Patient's initial sepsis screen is negative. Risk Assessment: Do you want to hurt yourself or someone else? Patient reports no desire to harm self or others. Onset of symptoms was June 23, 2024. 19:11 Method Of Arrival: Wheelchair cm10 19:11 Acuity: VELVET 3 cm10 Triage Assessment: 19:15 General: Appears in no apparent distress. uncomfortable, Behavior is calm, cooperative. cm10 Neuro: No deficits noted. Level of Consciousness is awake, alert, obeys commands, Oriented to person, place, time, situation, Appropriate for age. Respiratory: No deficits noted. Airway is patent Respiratory effort is even, unlabored, Respiratory pattern is regular, symmetrical. GI: Reports diarrhea, nausea, vomiting. Historical: - Allergies: 19:12 Vancomycin; cm10 - PMHx: 19:12 broke right arm; Diabetes - IDDM; Hyperlipidemia; Hypertension; cm10 - PSHx: 19:12 Cholecystectomy; hernia; hysterectomy; heart cath; [place]; right elbow replacement; cm10 - Immunization history:: Adult Immunizations up to date. - Infectious Disease History:: Denies. - Social history:: Smoking status: Patient denies any tobacco usage or history of. Screenin:43 [facility] ED Fall Risk Assessment (Adult) History of falling in the last 3 months, cp4 including since admission No falls in past 3 months (0 pts) Confusion or Disorientation No (0 pts) Intoxicated or Sedated No (0 pts) Impaired Gait No (0 pts) Mobility Assist Device Used No (0 pt) Altered Elimination No (0 pt) Score/Fall Risk Level 0 - 2 = Low Risk Oriented to surroundings, Maintained a safe environment, Assessed \T\ reinforced patient's understanding of fall precautions, Hourly rounding (assess needs \T\ fall precautionary measures) done. Abuse screen: Denies threats or abuse. Nutritional screening: No deficits noted. Tuberculosis screening: No symptoms or risk factors identified. Assessment: 19:43 General: Appears in no apparent distress. uncomfortable, Behavior is calm, cooperative, cp4 appropriate for age. Pain: Complains of pain in left lower quadrant and right lower quadrant and left upper quadrant and right upper quadrant Pain currently is 6 out of 10 on a pain scale. Neuro: Level of Consciousness is awake, alert, obeys commands, Oriented to person, place, time, situation. Cardiovascular: Patient's skin is warm and dry. Rhythm is sinus rhythm. Respiratory: Airway is patent Respiratory effort is even, unlabored. GI: Abdomen is round non-distended, Bowel sounds present X 4 quads. Abdomen is tender to palpation X 4 quads. : No signs and/or symptoms were reported regarding the genitourinary system. EENT: No signs and/or symptoms were reported regarding the EENT system. Derm: No signs and/or symptoms reported regarding the dermatologic system. Musculoskeletal: No signs and/or symptoms reported regarding the musculoskeletal system. 20:36 Reassessment: Patient appears in no apparent distress at this time. Patient and/or cp4 family updated on plan of care and expected duration. Pain level reassessed. Patient is alert, oriented x 3, equal unlabored respirations, skin warm/dry/pink. 21:24 Reassessment: Disposition pending urinalysis. cp4 Vital Signs: 19:11 BP 122 / 53; Pulse 97; Resp 16; Temp 97.4; Pulse Ox 97% on R/A; Weight 63.5 kg; Height cm10 5 ft. 1 in. ; Pain 5/10; 20:35 BP 127 / 78; Pulse 96; Resp 17; Pulse Ox 97% ; cp4 21:53 BP 132 / 65; Pulse 103; Resp 18; Pulse Ox 99% ; cp4 19:11 Body Mass Index 26.45 (63.50 kg, 154.94 cm) cm10 19:11 Pain Scale: Adult cm10 ED Course: 18:53 Patient arrived in ED. mr 19:12 Triage completed. cm10 19:12 Arm band placed on left wrist. Patient placed in waiting room. cm10 19:18 Jakob Alexandra MD is Attending Physician. [facility] 19:43 Nela Beasley is Primary Nurse. cp4 19:43 Placed in gown. Bed in low position. Call light in reach. Side rails up X2. cp4 19:43 No provider procedures requiring assistance completed. cp4 19:58 Initial lab(s) drawn, by ED staff, sent to lab. cp4 19:59 Inserted saline lock: 24 gauge in left forearm, using aseptic technique. Blood cp4 collected. Flushed with 10 mL NS. 20:57 CT Abd/Pelvis - IV Contrast Only In Process Unspecified. EDMS 21:13 Urine collected: clean catch specimen, clear. cp4 21:20 Jennifer Winchester MD is Referral Physician. [facility] 21:20 Elier Ann MD is Referral Physician. [facility] 21:55 Provided Education on: gastritis. cp4 21:55 intact, bleeding controlled, No redness/swelling at site. Pressure dressing applied. cp4 Administered Medications: 19:57 Drug: NS 0.9% IV 1000 ml IV at 1000 ml once; to be given as a bolus over 60 minutes cp4 Route: IV; Rate: 1000 ml; Site: left forearm; 21:57 Follow up: Response: No adverse reaction; IV Status: Completed infusion cp4 19:57 Drug: Ondansetron IVP 4 mg IVP once; over 2 minutes Route: IVP; Site: left forearm; cp4 21:13 Follow up: Response: No adverse reaction cp4 21:28 Drug: Pantoprazole IVP 40 mg IVP once Route: IVP; Site: left forearm; cp4 21:54 Follow up: Response: No adverse reaction cp4 21:50 Drug: Ciprofloxacin PO 250 mg PO once Route: PO; cp4 21:54 Follow up: Response: No adverse reaction cp4 Medication: 19:43 VIS not applicable for this client. cp4 Point of Care Testing: Blood Glucose: 19:15 Blood Glucose: 160 mg/dL; cm10 Ranges: Outcome: 21:20 Discharge ordered by . charly 21:55 Discharged to home via wheelchair, cp4 21:55 Condition: stable 21:55 Discharge instructions given to patient, Instructed on discharge instructions, follow up and referral plans. medication usage, Demonstrated understanding of instructions, follow-up care, medications, Prescriptions given X 4, 21:56 Patient left the ED. cp4 Signatures: Dispatcher [employer] EDMS Jakob Alexandra MD MD cha Rivera, Mary, [facility] Reg Ariadne Figueroa, RN RN cm10 Nela Beasley cp4 Corrections: (The following items were deleted from the chart) 19:59 19:58 Inserted saline lock: 24 gauge in left forearm, using aseptic technique. cp4 cp4
[2024-06-23] MEDS ORDERED: CIPROFLOXACIN HCL 500 MG TAB ONE (21:41)
[2024-06-23 22:15] VITALS: TEMP 97.4
[2024-06-23 22:18] VITALS: BP 132/65; O2SAT 99
--- NOTE | 2024-06-25 12:02 | EKG ---
Test Date: 2024-06-23 Test Time: 19:39:25 Operator Control Room: [facility] MEASUREMENT RESULTS: Intervals: Rate: 98 HI: 140 QRSD: 98 QT: 368 QTc: 469 [place]: P: 61 HI: 140 QRS: 64 T: 84 INTERPRETIVE STATEMENTS: Sinus rhythm with occasional premature ventricular complexes Otherwise normal ECG Compared to ECG 03/18/2024 17:01:36 No significant changes Electronically Signed On 06-25-24 12:01:14 FUND MANAGER by Bruce Rangel
== END 2024-06-23 21:56 | disposition home or self-care (01) ==
LOC: ER 18:48
DX: K29.00 Acute gastritis without bleeding (principal); N39.0 Urinary tract infection, site not specified; E87.6 Hypokalemia; R10.84 Generalized abdominal pain; R19.7 Diarrhea, unspecified; E11.9 Type 2 diabetes mellitus without complications; I10 Essential (primary) hypertension; Z11.52 Encounter for screening for COVID-19
CPT/HCPCS: 96361; 93005; 85025; 81001; 36415; 82947; 84484; 83690; 80053; 87804 ×2; 74177; 96375; 96374; 99284; 87811; Q9967; J2470; J2405; J7030

== ENCOUNTER 2024-09-06 13:01 | Inpatient (IN) | payer OTHER ==
--- OUTSIDE RECORDS SUMMARY | 2024-09-06 13:15 | XMS REPORT | Continuity of Care Document ---
Author Name Unknown Address [address] [facility] [address] [place] [address] [facility] Address [address] [facility] [place] [address] Care Team Providers Care Senior Mechanical Engineer Name Role Phone Raffi Fisher Primary Care Physician [phone] TOY OLSON Attending Clinician Unavailable Salazar Hollingsworth Cardiology Attending Clinician Unavailable Vivek Quintanilla MD Attending Clinician [phone] FAUZIA JHA Attending Clinician Unavailable [facility] Attending Clinician Unavailable Fauzia Mckeon Attending Clinician [phone] JASWINDER HA Attending Clinician Unavaila reinaldo Doctor Unassigned, [place] Attending Clinician U TAMY Ruiz Attending Clinician UnavailTAMY Lane Attending Clinician UnavailJackie Hampton PA-C Attending Clinician [phone] Tamy Lujan MD Attending Clinician [phone] Jaswinder Ha MD Attending Clinician [phone] Doctor Unassigned, [place] Attending Clinician U JESUSITA Amador Attending Clinician UnavailJesusita Duran DO Attending Clinician [phone] Curtis Pandey MD Attending Clinician [phone] Ernesto Attending Clinician Unavail able Patricia Attending Clinician UnavailMaverick Maloney Attending Clinician Unavailkaitlyn Plunkettb, [facility] Main Attending Clinician UnavailCURTIS Silva Attending Clinician UnavailTyron Neves Attending Clinician [phone] Tyron Dotson Attending Clinician Unavailable SAMEER GRAY Attending Clinician Unavail able SAMEER GRAY Attending Clinician Unavail able Sameer Gray MD Attending Clinician [phone] RUT MYLES Attending Clinician Unavaila BHUMI Jamil Attending Clinician Unavailable GONZALEZ MCMANUS Attending Clinician Unavailable ANUPAM REBOLLAR Attending Clinician Unavailable Rodríguez Ewing Admitting Clinician Unavailable JESUSITA OWEN Admitting Clinician Unavailab Sawyer Admitting Clinician Unavail able Patricia Admitting Clinician Unavailab Maverick Baires Admitting Clinician UnavailTyron Rgigs Admitting Clinician Unavailable SAMEER GRAY Admitting Clinician Unavail able CURTIS PANDEY Admitting Clinician Unavailab flores Payers Payer Name Policy Type Policy Number Effective Date Expirati on Date Source MEDICARE PART A \\T\\ B [id number] 2009 00:00:00 [id number] 2007 00:00:00 [place]: [employer] [id number] 2009 00:00:00 () [id number] 2007 00:00:00 [facility] (MEDICARE DME REGION C) [id number] 2009 00:00:00 Problems Condition Name Condition Details [...] B12 deficiency Disease Active 03-22 00:00: 00 [facility] Mixed hyperlipid emia Mixed hyperlipid emia Disease Active 12-12 00:00: 00 [facility] 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 Disease Active 2014-07 00:00: 00 [facility] 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 Disease Active 2014-07 00:00: 00 [facility] Depression Depression Disease Active 2014-07 00:00: 00 [facility] Sinusitis Sinusitis Disease Active 01-22 00:00: 00 [facility] Diabetic arthropath y Diabetic arthropath y Disease Active 09-21 00:00: 00 [facility] Adhesive capsulitis of shoulder Adhesive capsulitis of shoulder Disease Active 09-21 00:00: 00 [facility] Osteoarthr itis, multiple sites Osteoarthr itis, multiple sites Disease Active 09-21 00:00: 00 [facility] Chronic pain syndrome Chronic pain syndrome Disease Active 09-21 00:00: 00 [facility] Arthritis Arthritis Disease Active 07-24 00:00: 00 [facility] Allergic rhinitis Allergic rhinitis Disease Active 07-24 00:00: 00 [facility] Essential hypertensi on, benign Essential hypertensi on, benign Disease Active 10-04 00:00: 00 [facility] Vitamin D deficiency Vitamin D deficiency Disease Active 10-04 00:00: 00 Overview: Formattin g of this note might be different from the original. ICD10 Diagnosis Term Scarfer Operator Utility [facility] Pure hyperchole sterolemia Pure hyperchole sterolemia Disease Resolve d 10-04 00:00: 00 2017-12-12 00:00:00 2022-01-23 00:20:36 [facility] Type 1 diabetes mellitus with multiple complicati ons Type 1 diabetes mellitus with multiple complicati ons Disease Resolve d 10-04 00:00: 00 2015-05-28 00:00:00 2022-01-23 00:20:36 [facility] Diabetic neuropathy Diabetic neuropathy Disease Resolve d 11-02 00:00: 00 2015-05-06 00:00:00 2015-05-06 08:40:55 [facility] Diabetes mellitus type 2 without retinopath y Diabetes mellitus type 2 without retinopath y Disease Resolve d 11-22 00:00: 00 2015-04-20 00:00:00 2015-04-20 14:48:55 [facility] Type II or unspecifie d type diabetes mellitus with ophthalmic manifestat ions, not stated as uncontroll ed Type II or unspecifie d type diabetes mellitus with ophthalmic manifestat ions, not stated as uncontroll ed Disease Resolve d 12-21 00:00: 00 2011-10-05 00:00:00 2011-10-05 14:43:09 [facility] Type I (juvenile type) diabetes mellitus with ophthalmic manifestat ions, not stated as uncontroll ed Type I (juvenile type) diabetes mellitus with ophthalmic manifestat ions, not stated as uncontroll ed Disease Resolve d 03-23 00:00: 00 2011-10-05 00:00:00 2011-10-05 14:43:17 [facility] Uncontroll ed type 1 diabetes mellitus with ophthalmic manifestat ions Uncontroll ed type 1 diabetes mellitus with ophthalmic manifestat ions Disease Resolve d 12-23 00:00: 00 2011-10-05 00:00:00 2022-01-23 00:15:15 [facility] Uncontroll ed type 1 diabetes mellitus with ophthalmic manifestat ions Uncontroll ed type 1 diabetes mellitus with ophthalmic manifestat ions Disease Resolve d 12-23 00:00: 00 2011-10-05 00:00:00 2022-01-23 00:15:15 [facility] Type II or unspecifie d type diabetes mellitus with ophthalmic manifestat ions, not stated as uncontroll ed Type II or unspecifie d type diabetes mellitus with ophthalmic manifestat ions, not stated as uncontroll ed Disease Resolve d 11-06 00:00: 00 2010-03-23 00:00:00 2010-03-23 14:36:10 [facility] Type II or unspecifie d type diabetes mellitus without mention of complicati on, uncontroll ed Type II or unspecifie d type diabetes mellitus without mention of complicati on, uncontroll ed Disease Resolve d 2007-07 00:00: 00 2008-07-08 00:00:00 2008-07-08 13:15:53 [facility] Allergies, Adverse Reactions, Alerts Allergy Name Allergy Type Status Severity Reaction(s) Onset Date Inactive Date Treating Clinician Comments Source COVID-19 (SARS-CO V-2) VACCINE, AD26 DRUG INGREDI Active Rash 07-16 00:00: 00 [facility] Covid-19 (Sars-Co v-2) Vaccine, Ad26 Propensi ty to adverse reaction s Active Rash 07-16 00:00: 00 [facility] vancomyc in DA Active SV ANAPHYLAXIS 12-27 00:00: 00 [facility] VANCOMYC IN DRUG INGREDI Active High Unknown-Cmnt 2007-07 00:00: 00 [facility] Vancomyc in Propensi ty to adverse reaction s Active Unknown - See comments 2007-07 00:00: 00 paralysis [facility] Social History Social Habit Start Date Stop Date Quantity Comments Source History SDOH Alcohol Frequency [facility] History SDOH Alcohol Std Drinks [facility] History SDOH Alcohol Binge [facility] Gender identity [facility] History of Social function 2024-03-07 00:00:00 2024-03-07 00:00:00 [facility] Tobacco use and exposure 2024-03-07 00:00:00 2024-03-07 00:00:00 Smokeless tobacco non-user [facility] Alcohol intake 2023-08-21 00:00:00 2023-08-21 00:00:00 Current drinker of alcohol (finding) [facility] Exposure to SARS-CoV-2 (event) 2022-11-04 00:00:00 2022-11-14 12:16:00 Not sure [facility] Cigarettes smoked current (pack per day) - Reported 2022-03-21 00:00:00 2022-03-21 00:00:00 [facility] Alcoholic beverage intake 2012-09-21 00:00:00 2012-09-21 00:00:00 Current drinker of alcohol (finding) [facility] Alcohol Comment 2012-09-21 00:00:00 2012-09-21 00:00:00 occasional [facility] History of tobacco use 2005-07-24 00:00:00 Cigarette Smoker [facility] Sex assigned at 1955 00:00:00 1955 00:00:00 [facility] Smoking Status Start Date Stop Date Source Former Smoker [facility] Medications Ordered Medication Name Filled Medication Name Start Date Stop Date Current Medication? Ordering Clinician Indication Dosage Frequency Signature (SIG) Comments Components Source atorvastati n 40 mg tablet 2023-07 00:00: 00 Yes [id number] 80mg Take 2 tablets by mouth at bedtime. [facility] hydroCHLORO thiazide 25 mg tablet 2023-07 00:00: 00 Yes [id number] 25mg Take 1 tablet by mouth in the morning. [facility] insulin lispro (HUMALOG KWIKPEN INSULIN) 100 unit/mL pen injector 2023-07 00:00: 00 Yes [id number] inject under the skin 3 (three) times daily before meals, est 40 units/day. [facility] insulin degludec 200 unit/mL (3 mL) InPn 2023-07 00:00: 00 Yes [id number] 24U inject 24 Units under the skin in the morning. [facility] VITAMIN C 500 MG ORAL TAB 12-05 13:13: 35 Yes 1 daily [facility] MULTI-VITAM IN ORAL 12-05 13:13: 31 Yes 1 daily [facility] cholecalcif christina, vitamin D3, (VITAMIN D3) 1,000 unit tablet 12-05 13:07: 24 Yes 1000U Take 1 tablet by mouth in the morning. [facility] diclofenac dodium (VOLTAREN) 1 % gel 12-05 00:00: 00 Yes [id number] 4g Apply 4 g to area(s) as needed for Pain. [facility] insulin degludec 200 unit/mL (3 mL) InPn 12-05 00:00: 00 06-05 00:00 :00 No [id number] 26U inject 26 Units under the skin in the morning. [facility] Dexlansopra zole (DEXILANT) 60 mg capsule 08-21 13:17: 57 08-21 00:00 :00 No Take by mouth. [facility] Dexlansopra zole (DEXILANT) 60 mg capsule 08-21 00:00: 00 Yes [id number] 60mg Take 1 capsule by mouth in the morning. TAke 1 capsule 4 times daily [facility] aliskiren (TEKTURNA) 150 mg tablet 08-21 00:00: 00 Yes [id number] 150mg Take 1 tablet by mouth in the morning. [facility] diltiazem 120 mg tablet 08-21 00:00: 00 Yes [id number] 120mg Take 1 tablet by mouth in the morning and 1 tablet at noon and 1 tablet in the evening. [facility] atorvastati n 40 mg tablet 08-21 00:00: 00 06-05 00:00 :00 No [id number] 80mg Take 2 tablets by mouth at bedtime. [facility] hydroCHLORO thiazide 25 mg tablet 08-21 00:00: 00 06-05 00:00 :00 No [id number] 25mg Take 1 tablet by mouth in the morning. [facility] insulin lispro (HUMALOG KWIKPEN INSULIN) 100 unit/mL pen injector 08-21 00:00: 06-05 00:00 :00 No [id number] inject under the skin 3 (three) times daily before meals, est 40 units/day. [facility] insulin degludec 200 unit/mL (3 mL) InPn 2-12 00:00: 00 12-05 00:00 :00 No [id number] 26U inject 26 Units under the skin in the morning. [facility] codeine-gua ifenesin (ROBITUSSIN AC) 10-100 mg/5 mL oral solution 10 mL 07-16 16:00: 00 07-16 16:15 :00 No 10mL 10 mL, Oral, ONCE, 1 dose, On 07/16/23 at 1000, LAURIE [facility] albuterol 90 mcg/actuati on inhaler 07-16 00:00: 00 Yes [id number] 2{puff} Inhale 2 Puffs every 4 (four) hours as needed for Wheezing or Shortness of Breath. [facility] bromphenira mine-pseudo ephedrine-D M (BROMFED DM) 2-30-10 mg/5 mL syrup 07-16 00:00: 00 Yes [id number] 5mL Take 5 mL by mouth 4 (four) times daily as needed for Cold symptoms or Cough. [facility] VITAMIN C 500 MG ORAL TAB 2022-07 13:31: 37 Yes 1 daily [facility] MULTI-VITAM IN ORAL 2022-07 13:31: 36 Yes 1 daily [facility] ASPIRIN 81 MG ORAL CHEW 2022-07 13:31: 33 [facility] cholecalcif christina, vitamin D3, (VITAMIN D3) 1,000 unit tablet 2022-07 13:31: 30 Yes 1000U Take 1 tablet by mouth in the morning. [facility] CYANOCOBALA MIN, VITAMIN B-12, (VITAMIN B-12 ORAL) 2022-07 13:31: 28 Yes Take by mouth daily. [facility] Dexlansopra zole (DEXILANT) 60 mg capsule 2022-07 13:31: 16 Yes Take by mouth. [facility] cholecalcif christina, vitamin D3, (VITAMIN D3) 1,000 unit tablet 02-15 13:25: 45 Yes 1000U Take 1 tablet by mouth in the morning. [facility] CYANOCOBALA MIN, VITAMIN B-12, (VITAMIN B-12 ORAL) 02-15 13:25: 45 Yes Take by mouth daily. [facility] aliskiren (TEKTURNA) 150 mg tablet 02-15 00:00: 00 08-21 00:00 :00 No [id number] 150mg Take 1 tablet by mouth in the morning. [facility] ASPIRIN 81 MG ORAL CHEW 11-14 13:03: 27 Yes once daily [facility] cholecalcif christina, vitamin D3, (VITAMIN D3) 1,000 unit tablet 11-14 13:03: 25 Yes 1000U Take 1,000 Units by mouth daily. [facility] CYANOCOBALA MIN, VITAMIN B-12, (VITAMIN B-12 ORAL) 11-14 13:03: 22 Yes Take by mouth daily. [facility] atorvastati n 40 mg tablet 2-06 00:00: 00 08-21 00:00 :00 No [id number] 80mg Take 2 tablets by mouth at bedtime. [facility] insulin lispro (HUMALOG KWIKPEN INSULIN) 100 unit/mL pen injector 2021-07 00:00: 00 Yes [id number] inject under the skin 3 (three) times daily before meals, est 40 units/day. [facility] hydroCHLORO thiazide 25 mg tablet 2021-07 00:00: 00 08-21 00:00 :00 No [id number] 25mg Take 1 tablet by mouth in the morning. [facility] insulin degludec 200 unit/mL (3 mL) InPn 2021-07 00:00: 00 08-21 00:00 :00 No [id number] 26U inject 26 Units under the skin daily. [facility] insulin lispro (HUMALOG KWIKPEN INSULIN) 100 unit/mL pen injector 2021-07 00:00: 00 08-21 00:00 :00 No [id number] inject under the skin 3 (three) times daily before meals, est 40 units/day. [facility] diltiazem 120 mg tablet 2021-07 00:00: 00 08-21 00:00 :00 No [id number] 120mg Take 1 tablet by mouth in the morning and 1 tablet at noon and 1 tablet in the evening. [facility] SERTraline 100 mg tablet 2021-07 00:00: 00 05-18 00:00 :00 No [id number] 100mg Take 1 tablet by mouth in the morning. [facility] atorvastati n 40 mg tablet 2021-07 00:00: 00 08-15 00:00 :00 No [id number] 40mg Take 1 tablet by mouth at bedtime. [facility] glucagon 1 mg/0.2 mL AtIn 2021-07 00:00: 00 05-13 04:59 :00 No [id number] 1mg inject 1 mg under the skin ONCE PRN for Other for up to 1 dose. [facility] Diclofenac Sodium (VOLTAREN) 1 % gel 03-21 00:00: 00 12-05 00:00 :00 No [id number] Apply to area(s) as needed for Pain (scale 7-10) or Pain (scale 4-6). [facility] traMADoL 50 mg tablet 03-21 00:00: 00 05-18 00:00 :00 No [id number] 50mg Take 1 tablet by mouth in the morning and 1 tablet at noon and 1 tablet in the evening. Indication s: chronic pain [facility] methocarbam oL 500 mg tablet 03-21 00:00: 00 06-20 05:59 :00 No [id number] 500mg Take 1 tablet by mouth in the morning and 1 tablet in the evening. Do all this for 90 days. [facility] Diclofenac Epolamine (FLECTOR) 1.3 % patch 03-21 00:00: 00 06-20 05:59 :00 No [id number] Apply to skin 2 (two) times daily as needed for Pain (scale 7-10) or Pain (scale 4-6) for up to 90 days. [facility] aliskiren (TEKTURNA) 150 mg tablet 8 00:00: 00 02-15 00:00 :00 No [id number] 150mg Take 1 tablet by mouth in the morning. [facility] traMADoL 50 mg tablet 02-02 00:00: 00 03-21 00:00 :00 No [id number] 50mg Take 1 tablet by mouth in the morning and 1 tablet at noon and 1 tablet in the evening. Indication s: chronic pain [facility] methocarbam oL (ROBAXIN) 500 mg tablet 01-25 00:00: 00 05-18 00:00 :00 No [id number] 500mg Take 1 tablet by mouth 2 (two) times daily as needed for Pain (scale 4-6) or Pain (scale 7-10). [facility] methocarbam oL (ROBAXIN) 500 mg tablet 08-17 00:00: 00 03-21 00:00 :00 No [id number] 750mg Take 1.5 tablets by mouth 2 (two) times daily. [facility] insulin degludec 200 unit/mL (3 mL) InPn 2020-07 00:00: 00 05-12 00:00 :00 No [id number] 26U inject 26 Units under the skin daily. [facility] atorvastati n 40 mg tablet 2020-07 00:00: 00 05-12 00:00 :00 No [id number] 40mg Take 1 tablet by mouth at bedtime. [facility] hydroCHLORO thiazide 25 mg tablet 2020-07 00:00: 00 05-12 00:00 :00 No [id number] 25mg Take 1 tablet by mouth daily. [facility] SERTraline 100 mg tablet 2020-07 00:00: 00 05-12 00:00 :00 No [id number] 100mg Take 1 tablet by mouth daily. [facility] Blood-Gluco se Transmitter (DEXCOM G6 TRANSMITTER ) Irma 2020-07 00:00: 00 Yes Change every 90 days [facility] Blood-Gluco se Sensor (DEXCOM G6 SENSOR) Irma 2020-07 00:00: 00 Yes Change sensor every 10 days [facility] Blood-Gluco se Meter,Jeff núñez (DEXCOM G6 SOFTWARE DEVELOPMENT MANAGER) Mis 2020-07 00:00: 00 05-18 00:00 :00 No Use as directed [facility] VITAMIN C 500 MG ORAL TAB 2020-07 13:56: 05 Yes 1 daily [facility] CYANOCOBALA MIN, VITAMIN B-12, (VITAMIN B-12 ORAL) 2020-07 13:56: 05 Yes Take by mouth daily. [facility] ASPIRIN 81 MG ORAL CHEW 2020-07 13:56: 05 Yes [facility] cholecalcif christina, vitamin D3, (VITAMIN D3) 1,000 unit tablet 2020-07 13:56: 05 Yes 1000U Take 1 tablet by mouth in the morning. [facility] Dexlansopra zole (DEXILANT) 60 mg capsule 2020-07 13:56: 05 Yes Take by mouth. [facility] insulin lispro (HUMALOG KWIKPEN INSULIN) 100 unit/mL pen injector 03-22 00:00: 00 05-12 00:00 :00 No [id number] inject under the skin 3 (three) times daily before meals, est 40 units/day. [facility] glucagon 1 mg/0.2 mL AtIn 03-22 00:00: 00 05-12 00:00 :00 No [id number] 1mg inject 1 mg under the skin as needed for Other. [facility] DICLOFENAC EPOLAMINE 1.3 % patch 03-09 00:00: 00 03-21 00:00 :00 No [id number] APPLY ONE PATCH TO AFFECTED AREA TWICE A DAY NEEDED FOR PAIN (SCALE 1-3) OR PAIN (SCALE 4-6) (DO NOT APPLY TO DAMAGED SKIN, DO NOT WEAR WHILE BATHING OR SHOWERING, WASH HANDS AFTER HANDLING) [facility] DICLOFENAC SODIUM 1 % gel 03-09 00:00: 00 03-21 00:00 :00 No [id number] APPLY GEL TO AFFECTED AREA(S) EVERY 6 HOURS NEEDED FOR PAIN (SCALE 4-6) OR PAIN (SCALE 7-10) -(USE THE ENCLOSED DOSING CARD AND PATIENT INSTRUCTIO N SHEET FOR PROPER DOSING GUIDANCE OR DIRECTED BY YOUR DOCTOR. TOTAL AMOUNT USED EACH DAY SHOULD NOT EXCEED 32 GRAMS) [facility] Insulin [place], Disposable, (BD ULTRAFINE III MINI PEN) 31 gauge x 3/16" Ndle 01-15 00:00: 00 Yes [id number] 4 (four) times daily. [facility] Insulin [place], Disposable, (BD ULTRAFINE III MINI PEN) 31 gauge x 3/16" Ndle 01-15 00:00: 00 Yes [id number] 4 (four) times daily. [facility] diltiazem 120 mg tablet 01-15 00:00: 00 05-12 00:00 :00 No [id number] 120mg Take 1 tablet by mouth 3 (three) times daily. [facility] HYDROcodone -acetaminop hen (NORCO) 5-325 mg tablet 3-11 00:00: 00 05-18 00:00 :00 No [id number] 1{tbl} Take 1 tablet by mouth 2 (two) times daily. [facility] codeine-gua ifenesin (CHERATUSSI N AC) 10-100 mg/5 mL solution 2-04 00:00: 00 03-21 00:00 :00 No [id number] 5mL Take 5 mL by mouth every 6 (six) hours as needed for Cough. [facility] acetone, urine, test (KETONE URINE TEST) strip 01-19 00:00: 00 Yes [id number] Use as directed as needed to check for ketones [facility] acetone, urine, test (KETONE URINE TEST) strip 01-19 00:00: 00 Yes [id number] Use as directed as needed to check for ketones [facility] acetaminoph en 300 mg-codeine 30 [...] Date Status Comments Source Influenza Virus Vaccine 2024-03-07 13:15:00 Completed [facility] Influenza Virus Vaccine (3+ yrs) 2024-03-07 13:15:00 Completed [facility] Influenza Virus Vaccine Quad IM 3+ YRS 2024-03-07 13:15:00 Completed [facility] Influenza Virus Vaccine 2023-11-27 00:00:00 Completed [facility] Influenza Virus Vaccine (3+ yrs) 2023-11-27 00:00:00 Completed [facility] Influenza Virus Vaccine Quad IM 3+ YRS 2023-11-27 00:00:00 Completed [facility] Influenza Virus Vaccine 2023-11-03 00:00:00 Completed [facility] Influenza Virus Vaccine (3+ yrs) 2023-11-03 00:00:00 Completed [facility] Influenza Virus Vaccine Quad IM 3+ YRS 2023-11-03 00:00:00 Completed [facility] Influenza Virus Vaccine 2023-10-12 00:00:00 Completed [facility] Influenza Virus Vaccine (3+ yrs) 2023-10-12 00:00:00 Completed [facility] Influenza Virus Vaccine Quad IM 3+ YRS 2023-10-12 00:00:00 Completed [facility] Influenza Virus Vaccine 2023-08-25 00:00:00 Completed [facility] Influenza Virus Vaccine (3+ yrs) 2023-08-25 00:00:00 Completed [facility] Influenza Virus Vaccine Quad IM 3+ YRS 2023-08-25 00:00:00 Completed [facility] Influenza Virus Vaccine 2023-08-21 13:00:00 Completed [facility] Influenza Virus Vaccine (3+ yrs) 2023-08-21 13:00:00 Completed [facility] Influenza Virus Vaccine Quad IM 3+ YRS 2023-08-21 13:00:00 Completed [facility] Influenza Virus Vaccine 2023-07-16 09:53:00 Completed [facility] Influenza Virus Vaccine (3+ yrs) 2023-07-16 09:53:00 Completed [facility] Influenza Virus Vaccine Quad IM 3+ YRS 2023-07-16 09:53:00 Completed [facility] Influenza Virus Vaccine 2023-06-09 00:00:00 Completed [facility] Influenza Virus Vaccine (3+ yrs) 2023-06-09 00:00:00 Completed [facility] Influenza Virus Vaccine Quad IM 3+ YRS 2023-06-09 00:00:00 Completed [facility] Influenza Virus Vaccine 2023-05-18 14:00:00 Completed [facility] Influenza Virus Vaccine (3+ yrs) 2023-05-18 14:00:00 Completed [facility] Influenza Virus Vaccine Quad IM 3+ YRS 2023-05-18 14:00:00 Completed [facility] Influenza Virus Vaccine 2023-05-18 00:00:00 Completed [facility] [facility] Influenza Virus Vaccine (3+ yrs) 2023-05-18 00:00:00 Completed [facility] Influenza Virus Vaccine Quad IM 3+ YRS 2023-05-18 00:00:00 Completed [facility] Influenza Virus Vaccine 2023-03-29 00:00:00 Completed [facility] Influenza Virus Vaccine (3+ yrs) 2023-03-29 00:00:00 Completed [facility] Influenza Virus Vaccine Quad IM 3+ YRS 2023-03-29 00:00:00 Completed [facility] Influenza Virus Vaccine Quad IM 3+ YRS 2016-06-06 00:00:00 Completed [facility] Influenza Virus Vaccine Quad IM 3+ YRS 2016-06-06 00:00:00 Completed [facility] Influenza Virus Vaccine Quad IM 3+ YRS 2016-06-06 00:00:00 Completed [facility] Influenza Virus Vaccine Quad IM 3+ YRS 2016-06-06 00:00:00 Completed [facility] Influenza Virus Vaccine Quad IM 3+ YRS 2016-06-06 00:00:00 Completed [facility] Influenza Virus Vaccine Quad IM 3+ YRS 2016-06-06 00:00:00 Completed [facility] Influenza Virus Vaccine Quad IM 3+ YRS 2016-06-06 00:00:00 Completed [facility] Influenza Virus Vaccine Quad IM 3+ YRS 2016-06-06 00:00:00 Completed [facility] Influenza Virus Vaccine Quad IM 3+ YRS 2016-06-06 00:00:00 Completed [facility] Influenza Virus Vaccine (3+ yrs) 2013-04-25 00:00:00 Completed [facility] Influenza Virus Vaccine (3+ yrs) 2013-04-25 00:00:00 Completed [facility] Influenza Virus Vaccine (3+ yrs) 2013-04-25 00:00:00 Completed [facility] Influenza Virus Vaccine (3+ yrs) 2013-04-25 00:00:00 Completed [facility] Influenza Virus Vaccine (3+ yrs) 2013-04-25 00:00:00 Completed [facility] Influenza Virus Vaccine (3+ yrs) 2013-04-25 00:00:00 Completed [facility] Influenza Virus Vaccine (3+ yrs) 2013-04-25 00:00:00 Completed [facility] Influenza Virus Vaccine (3+ yrs) 2013-04-25 00:00:00 Completed [facility] Influenza Virus Vaccine (3+ yrs) 2013-04-25 00:00:00 Completed [facility] Influenza Virus Vaccine 2012-07-24 00:00:00 Completed [facility] Influenza Virus Vaccine 2012-07-24 00:00:00 Completed [facility] Influenza Virus Vaccine 2012-07-24 00:00:00 Completed [facility] Influenza Virus Vaccine 2012-07-24 00:00:00 Completed [facility] Influenza Virus Vaccine 2012-07-24 00:00:00 Completed [facility] Influenza Virus Vaccine 2012-07-24 00:00:00 Completed [facility] Influenza Virus Vaccine 2012-07-24 00:00:00 Completed [facility] Influenza Virus Vaccine 2012-07-24 00:00:00 Completed [facility] Influenza Virus Vaccine 2012-07-24 00:00:00 Completed [facility] Vital Signs Vital Name Observation Time Observation Value Comments S ource Systolic blood pressure 2024-06-05 20:08:00 131 mm[Hg] Gustine o [facility] Diastolic blood pressure 2024-06-05 20:08:00 54 mm[Hg] Gustine o [facility] Heart rate 2024-06-05 20:08:00 98 /min [facility] Respiratory rate 2024-06-05 20:08:00 14 /min [facility] Body height 2024-06-05 20:08:00 154.9 cm [facility] 2024-06-05 20:08:00 68.72 kg [facility] BMI 2024-06-05 20:08:00 28.63 kg/m2 [facility] Oxygen saturation in Arterial blood by Pulse oximetry 2024-06-05 20:08:00 97 /min [facility] Body height 2024-03-07 17:57:00 154.9 cm [facility] Body weight 2024-03-07 17:57:00 70.716 kg [facility] BMI 2024-03-07 17:57:00 29.46 kg/m2 [facility] Systolic blood pressure 2023-12-06 17:38:00 130 mm[Hg] [facility] Diastolic blood pressure 2023-12-06 17:38:00 72 mm[Hg] [facility] Heart rate 2023-12-06 17:38:00 98 /min Unive [facility] Body temperature 2023-12-06 17:38:00 36.5 Jeny [facility] Respiratory rate 2023-12-06 17:38:00 18 /min [facility] Body height 2023-12-06 17:38:00 154.9 cm [facility] Body weight 2023-12-06 17:38:00 74.526 kg [facility] BMI 2023-12-06 17:38:00 31.04 kg/m2 [facility] Oxygen saturation in Arterial blood by Pulse oximetry 2023-12-06 17:38:00 96 /min r/a [facility] Systolic blood pressure 2023-08-21 18:46:00 149 mm[Hg] [facility] Diastolic blood pressure 2023-08-21 18:46:00 81 mm[Hg] [facility] Heart rate 2023-08-21 18:46:00 95 /min [facility] Body temperature 2023-08-21 18:45:00 36.17 Jeny [facility] Respiratory rate 2023-08-21 18:45:00 21 /min [facility] Body height 2023-08-21 18:45:00 152.4 cm [facility] Body weight 2023-08-21 18:45:00 74.98 kg [facility] BMI 2023-08-21 18:45:00 32.28 kg/m2 [facility] Oxygen saturation in Arterial blood by Pulse oximetry 2023-08-21 18:45:00 98 /min [facility] Systolic blood pressure 2023-07-16 15:00:00 121 mm[Hg] [facility] Diastolic blood pressure 2023-07-16 15:00:00 69 mm[Hg] [facility] Heart rate 2023-07-16 15:00:00 103 /min [facility] Body temperature 2023-07-16 15:00:00 37.22 Jeny [facility] Respiratory rate 2023-07-16 15:00:00 16 /min [facility] Body height 2023-07-16 15:00:00 157.5 cm [facility] Body weight 2023-07-16 15:00:00 70.308 kg [facility] BMI 2023-07-16 15:00:00 28.35 kg/m2 [facility] Oxygen saturation in Arterial blood by Pulse oximetry 2023-07-16 15:00:00 97 /min [facility] Systolic blood pressure 2023-05-18 19:06:00 121 mm[Hg] [facility] Diastolic blood pressure 2023-05-18 19:06:00 77 mm[Hg] [facility] Heart rate 2023-05-18 19:06:00 93 /min [facility] Body temperature 2023-05-18 19:06:00 19.83 Jeny [facility] Respiratory rate 2023-05-18 19:06:00 18 /min [facility] Body height 2023-05-18 19:06:00 157.5 cm [facility] Body weight 2023-05-18 19:06:00 72.893 kg [facility] BMI 2023-05-18 19:06:00 29.39 kg/m2 [facility] Oxygen saturation in Arterial blood by Pulse oximetry 2023-05-18 19:06:00 100 /min r/a [facility] Systolic blood pressure 2023-02-15 18:24:00 109 mm[Hg] [facility] Diastolic blood pressure 2023-02-15 18:24:00 71 mm[Hg] [facility] Heart rate 2023-02-15 18:24:00 97 /min [facility] Body temperature 2023-02-15 18:24:00 36.5 Jeny [facility] Body height 2023-02-15 18:24:00 157.5 cm [facility] Body weight 2023-02-15 18:24:00 72.576 kg [facility] BMI 2023-02-15 18:24:00 29.26 kg/m2 [facility] Oxygen saturation in Arterial blood by Pulse oximetry 2023-02-15 18:24:00 97 /min [facility] Systolic blood pressure 2022-11-14 18:28:00 123 mm[Hg] [facility] Diastolic blood pressure 2022-11-14 18:28:00 61 mm[Hg] [facility] Heart rate 2022-11-14 18:28:00 96 /min [facility] Body temperature 2022-11-14 18:28:00 36 Jeny [facility] Respiratory rate 2022-11-14 18:28:00 18 /min [facility] Body height 2022-11-14 18:28:00 157.5 cm [facility] Body weight 2022-11-14 18:28:00 74.662 kg [facility] BMI 2022-11-14 18:28:00 30.11 kg/m2 [facility] Oxygen saturation in Arterial blood by Pulse oximetry 2022-11-14 18:28:00 97 /min [facility] Height 2022-10-19 00:00:00 62 [in_i] Azale [...] Systolic blood pressure 2022-08-15 18:33:00 107 mm[Hg] [facility] Diastolic blood pressure 2022-08-15 18:33:00 68 mm[Hg] [facility] Heart rate 2022-08-15 18:33:00 88 /min [facility] Body temperature 2022-08-15 18:33:00 36.61 Jeny [facility] Respiratory rate 2022-08-15 18:33:00 16 /min [facility] Body height 2022-08-15 18:33:00 154.9 cm [facility] Body weight 2022-08-15 18:33:00 74.208 kg [facility] BMI 2022-08-15 18:33:00 30.91 kg/m2 [facility] Oxygen saturation in Arterial blood by Pulse oximetry 2022-08-15 18:33:00 98 /min [facility] Height 2022-08-03 00:00:00 62 [in_i] [facility] BMI (Body Mass Index) 2022-08-03 00:00:00 30.2 kg/m2 [facility] Body Weight 2022-08-03 00:00:00 165 [lb_av] Aza petty [facility] Systolic blood pressure 2022-05-12 18:19:00 111 mm[Hg] [facility] Diastolic blood pressure 2022-05-12 18:19:00 68 mm[Hg] [facility] Heart rate 2022-05-12 18:19:00 90 /min [facility] Body temperature 2022-05-12 18:19:00 36.11 Jeny [facility] Respiratory rate 2022-05-12 18:19:00 16 /min [facility] Body height 2022-05-12 18:19:00 157.5 cm [facility] Body weight 2022-05-12 18:19:00 73.256 kg [facility] BMI 2022-05-12 18:19:00 29.54 kg/m2 [facility] Oxygen saturation in Arterial blood by Pulse oximetry 2022-05-12 18:19:00 96 /min ra [facility] Systolic blood pressure 2022-03-21 20:00:00 128 mm[Hg] [facility] Diastolic blood pressure 2022-03-21 20:00:00 61 mm[Hg] [facility] Heart rate 2022-03-21 20:00:00 97 /min [facility] Respiratory rate 2022-03-21 20:00:00 16 /min [facility] Body height 2022-03-21 20:00:00 157.5 cm [facility] Body weight 2022-03-21 20:00:00 72.576 kg [facility] BMI 2022-03-21 20:00:00 29.26 kg/m2 [facility] Oxygen saturation in Arterial blood by Pulse oximetry 2022-03-21 20:00:00 97 /min [facility] Procedures Procedure Date / Time Performed Performing Clinician Source POCT HEMOGLOBIN A1C TEST 2023-12-06 00:00:00 Jaswinder Ha [facility] POCT HEMOGLOBIN A1C TEST 2023-08-21 20:36:00 Jaswinder Ha [facility] XR CHEST 2 VW 2023-07-16 16:32:38 [facility] 2023-07-16 16:13:38 Docto r Unassigned, [place] [facility] RAPID INFLUENZA A/B 2023-07-16 15:55:00 Marlena Owen ra [facility] COVID-19 (ID NOW RAPID TESTING) 2023-07-16 15:55:00 Jesusita Owen [facility] CONSENT/REFUSAL FOR DIAGNOSIS AND TREATMENT 2023-07-16 15:45:08 Doctor Unassigned, [place] [facility] CONSENT/REFUSAL FOR DIAGNOSIS AND TREATMENT 2023-05-18 18:42:37 Doctor Unassigned, [place] [facility] POCT HEMOGLOBIN A1C TEST 2023-05-18 00:00:00 Jaswinder Ha [facility] POCT HEMOGLOBIN A1C TEST 2023-02-15 18:43:00 Jaswinder Ha [facility] POCT HEMOGLOBIN A1C TEST 2022-11-14 18:31:00 Jaswinder Ha [facility] XR, shoulder, 2 or more view 2022-10-19 00:00:00 [facility] XR, shoulder, 2 or more view 2022-09-28 00:00:00 [facility] XR, shoulder, 2 or more view 2022-09-07 00:00:00 [facility] POCT HEMOGLOBIN A1C TEST 2022-08-15 19:14:00 Jaswinder Ha [facility] XR, shoulder, 2 or more view 2022-08-03 00:00:[address] [facility] [address], shoulder, w/o contrast 2022-08-03 00:00:00 [facility] XR, humerus, 2 or more view 2022-07-22 00:00:00 [facility] XR, shoulder, 2 or more view 2022-05-20 00:00:00 [facility] POCT HEMOGLOBIN A1C TEST 2022-05-12 19:09:00 Jaswinder Ha [facility] DME/SUPPLY JUSTIFICATION 2022-04-05 05:01:00 Doc tor Unassigned, [place] [facility] XR, humerus, 2 or more view 2022-04-01 00:00:00 [facility] XR, shoulder, 2 or more view 2022-02-21 00:00:00 [facility] XR, shoulder, 2 or more view 2022-01-17 00:00:00 [facility] XR, shoulder, 2 or more view 2022-01-03 00:00:00 [facility] HAND, 2 VIEWS 2012-09-21 17:11:00 Vivek Quintanilla [facility] ANTI-NUCLEAR ANTIBODY SCREEN 2012-09-21 16:47:00 Vivek Quintanilla [facility] ANTI-NUCLEAR ANTIBODY TITER 2012-09-21 16:47:00 Vivek Quintanilla [facility] Plan of Care Planned Activity Planned Date Details Comments Source Instructions [facility] Encounters Start Date/Time End Date/Time Encounter Type Admission Type Attending [facility] Care Facility Care Department Encounter ID Source 2021-05-07 21:24:44 Emergency [facility] [id number] [facility] 2024-08-24 04:41:00 2024-08-25 10:23:00 Inpatient Salazar Gonzalez [facility] MEDI.01 [id number] [facility] 2012-09-21 00:00:00 2024-08-24 04:49:50 Orders Only [facility] 1.840.114 350.1.13.10 4.2.7.2.686 [id number] [facility] 2024-06-05 15:15:00 2024-06-05 15:30:00 Manager Meeting Visit [facility] Fauzia Jha [facility] I[facility] [place] [facility] 1..114 350.1.13.10 4.2.7.2.686 [id number] [facility] 2024-06-05 14:30:00 2024-06-05 15:08:24 Outpatient FAUZIA SANCHES [facility] [id number] [facility] 2024-06-05 14:30:00 2024-06-05 15:08:24 Office Visit Fauzia Jha [facility] 1..114 350.1.13.10 4.2.7.2.686 [id number] [facility] 2024-02-22 00:00:00 2024-03-30 18:25:58 Patient Secure Msg Doctor Unassigned, [place] Doctor Unassigned, [place] [facility] 1.2.114 350.1.13.10 4.2.7.2.686 [id number] [facility] 2024-03-07 13:15:00 2024-03-07 14:07:44 Outpatient R TAMY LUJAN CRAIG [facility] [id number] [facility] 2024-03-07 13:15:00 2024-03-07 14:07:44 Office Visit Jackie Puga Craig [facility] 1.84.114 350.1.13.10 4.2.7.2.686 [id number] [facility] 2024-01-24 00:00:00 2024-01-24 16:16:13 Telephone Jaswinder Ha [facility] 1.284.114 350.1.13.10 4.2.7.2.686 [id number] [facility] 2023-11-03 00:00:00 2023-12-09 18:10:37 Patient Secure Msg Doctor Unassigned, [place] [facility] 1.2840.114 350.1.13.10 4.2.7.2.686 [id number] [facility] 2023-12-06 13:30:00 2023-12-06 13:30:00 Office Visit Jaswinder Ha [facility] 1.2.840.114 350.1.13.10 4.2.7.2.686 [id number] [facility] 2023-12-06 13:30:00 2023-12-06 13:29:27 Outpatient R HA JASWINDER [facility] [id number] [facility] 2023-11-27 00:00:00 2023-11-28 12:48:13 Telephone Jaswinder Ha [facility] 1.2.840.114 350.1.13.10 4.2.7.2.686 [id number] [facility] 2023-10-12 00:00:00 2023-10-12 00:00:00 Telephone Jaswinder Ha [facility] 1.2.840.114 350.1.13.10 4.2.7.2.686 [id number] [facility] 2023-08-25 00:00:00 2023-08-25 00:00:00 Refill Jaswinder Ha [facility] 1.2.840.114 350.1.13.10 4.2.7.2.686 [id number] [facility] 2023-08-21 13:00:00 2023-08-21 13:32:03 Outpatient R JASWINDER HA [facility] [id number] [facility] 2023-08-21 13:00:00 2023-08-21 13:32:03 Office Visit Josue Haen Prem [facility] 1.2.840.114 350.1.13.10 4.2.7.2.686 [id number] [facility] 2023-07-16 09:53:00 2023-07-16 12:04:00 Emergency X JESUSITA OWEN [facility] [id number] [facility] 2023-07-16 09:53:00 2023-07-16 12:04:00 Emergency Jesusita Owen Ye [facility] 1.2.840.114 350.1.13.10 4.2.7.2.686 [id number] [facility] 2023-06-09 00:00:00 2023-06-09 00:00:00 Telephone Jaswinder Ha [facility] 1.2.840.114 350.1.13.10 4.2.7.2.686 [id number] [facility] 2023-05-18 14:00:00 2023-05-18 14:00:00 Office Visit Jaswinder Ha [facility] 1.2.840.114 350.1.13.10 4.2.7.2.686 [id number] [facility] 2023-05-18 14:00:00 2023-05-18 13:57:50 Outpatient JASWINDER HATCH [facility] [id number] [facility] 2023-05-18 00:00:00 2023-05-18 00:00:00 Orders Only Doctor Unassigned, [place] [facility] 1.2.840.114 350.1.13.10 4.2.7.2.686 [id number] [facility] 2023-03-29 00:00:00 2023-03-29 00:00:00 Telephone Jaswinder Ha [facility] 1.2840.114 350.1.13.10 4.2.7.2.686 [id number] [facility] 2023-02-15 14:00:00 2023-02-15 15:52:38 Outpatient JASWINDER HATCH [facility] [id number] [facility] 2023-02-15 14:00:00 2023-02-15 15:52:38 Office Visit Jaswinder Ha [facility] 1.2.840.114 350.1.13.10 4.2.7.2.686 [id number] [facility] 2022-11-28 00:00:00 2022-11-28 00:00:00 Telephone Curtis Pandey [facility] 1.2.840.114 350.1.13.10 4.2.7.2.686 [id number] [facility] 2022-11-14 13:00:00 2022-11-14 14:11:50 Outpatient R HAJOSUEEN [facility] [id number] [facility] 2022-11-14 13:00:00 2022-11-14 14:11:50 Office Visit Jaswinder Ha [facility] 1.2.840.114 350.1.13.10 4.2.7.2.686 [id number] [facility] 2022-10-19 00:00:00 2022-10-19 00:00:00 Maverick Pringle MD: [address] [place] [phone] , Ph. [phone] [facility] [place] [facility] [place] [facility]Ofc [facility] [id number] [facility] 2022-09-30 00:00:00 2022-09-30 00:00:00 Outpatient FOG_Kai Scott AO AO [id number] [facility] 2022-09-30 00:00:00 2022-09-30 00:00:00 Outpatient FOG_Kai Scott AO AO [id number] [facility] 2022-09-30 00:00:00 2022-09-30 00:00:00 Outpatient FOG_Kai Scott AO AO [id number] [facility] 2022-09-30 00:00:00 2022-09-30 00:00:00 Outpatient FOG_Kai Scott AOSM AOSM [id number] [facility] 2022-09-30 00:00:00 2022-09-30 00:00:00 Outpatient FOG_Kai Scott AOSM AOSM [id number] [facility] 2022-09-30 00:00:00 2022-09-30 00:00:00 Outpatient FOG_Kai Scott AOSM AOSM [id number] [facility] 2022-09-30 00:00:00 2022-09-30 00:00:00 Outpatient FOG_Kai Scott AOSM AOSM [id number] [facility] 2022-09-30 00:00:00 2022-09-30 00:00:00 Outpatient FOG_Kai Scott AOSM AOSM [id number] [facility] 2022-09-30 00:00:00 2022-09-30 00:00:00 Outpatient FOG_Kai Scott AOSM AOSM [id number] [facility] 2022-09-28 00:00:00 2022-09-28 00:00:00 Maverick Pringle MD: [address] [place] [address] , Ph. [phone] [facility] [place] [facility] [place] [facility] [id number] [facility] 2022-09-12 00:00:00 2022-09-12 00:00:00 Outpatient FOG_Kai Scott AOSM AOSM [id number] [facility] 2022-09-12 00:00:00 2022-09-12 00:00:00 Outpatient FOG_Kai Scott AOSM AO [id number] [facility] 2022-09-09 00:00:00 2022-09-09 00:00:00 Outpatient ESTHELA_Kai Scott AOSM AO [id number] [facility] 2022-09-07 00:00:00 2022-09-07 00:00:00 Maverick Pringle MD: [address] [place] [phone] , Ph. [phone] [facility] [place] [facility] [place] [facility] [place] [id number] [facility] 2022-09-06 00:00:00 2022-09-06 00:00:00 Outpatient Shen Whipple AOS[facility] AO [id number] [facility] 2022-09-06 00:00:00 2022-09-06 00:00:00 Outpatient Shen Whipple A[facility] AO [id number] [facility] 2022-08-25 00:00:00 2022-08-25 00:00:00 Outpatient FOGRafiq Whipple AOSM AO [id number] [facility] 2022-08-25 00:00:00 2022-08-25 00:00:00 Outpatient FOGRafiq Whipple AOSM AO [id number] [facility] 2022-08-22 08:25:00 2022-08-23 14:20:00 Inpatient Maverick Vasques [facility] [id number] [facility] 2022-08-22 00:00:00 2022-08-22 00:00:00 Maverick Pringle MD: [address] [place] [phone] , Ph. [phone] [facility] [place] [facility] [place] [facility] [id number] [facility] 2022-08-15 13:00:00 2022-08-15 13:30:00 Office Visit HaJaswinder ortez Prem [facility] 1.2.840.114 350.1.13.10 4.2.7.2.686 [id number] [facility] 2022-08-15 13:00:00 2022-08-15 13:00:00 Outpatient JASWINDER HATCH [facility] [id number] [facility] 2022-08-13 00:00:00 2022-08-13 00:00:00 Outpatient Shen Whipple AOSM AOSM [id number] [facility] 2022-08-13 00:00:00 2022-08-13 00:00:00 Outpatient Shen Whipple AOSM AOSM [id number] [facility] 2022-08-13 00:00:00 2022-08-13 00:00:00 Outpatient Shen Whipple AOSM AOSM [id number] [facility] 2022-08-13 00:00:00 2022-08-13 00:00:00 Outpatient Shen Whipple AOSM AOSM [id number] [facility] 2022-08-10 16:02:00 2022-08-10 16:02:00 Outpatient Maverick Pringle HCACL LABO [id number] [facility] 2022-08-10 10:32:00 2022-08-10 10:32:00 Outpatient Maverick Vasques HCATO RADI [id number] [facility] 2022-08-08 00:00:00 2022-08-08 00:00:00 Outpatient Shen Whipple AOSM AOSM [id number] [facility] 2022-08-03 00:00:00 2022-08-03 00:00:00 Maverick Pringle MD: [address] [place] [address] , Ph. [phone] [place] [facility] [place] [facility] [id number] [facility] 2022-08-03 00:00:00 2022-08-03 00:00:00 Jaswinder Shultz [facility] PAVILLION ..840.114 350.1.13.10 4.2.7.2.686 [id number] [facility] 2022-07-28 00:00:00 2022-07-28 00:00:00 Outpatient FOGRafiq Whipple AO AO [id number] [facility] 2022-07-22 00:00:00 2022-07-22 00:00:00 Tyron Dotson MD: [address] [place], [place] [address] , Ph. [phone] [facility] [place] - F[facility]Of[facility] [id number] [facility] 2022-07-19 00:00:00 2022-07-19 00:00:00 Outpatient Shen Whipple [facility] [id number] [facility] 2022-07-19 00:00:00 2022-07-19 00:00:00 Outpatient Shen Whipple AO AO [id number] [facility] 2022-07-14 10:15:00 2022-07-14 10:30:00 Manager Meeting Visit Pob, Adc Lab Jaswinder Serrato [facility] ..840.114 350.1.13.10 4.2.7.2.686 [id number] [facility] 2022-07-14 10:15:00 2022-07-14 10:15:00 Outpatient JASWINDER HATCH [facility] [id number] [facility] 2022-05-20 00:00:00 2022-05-20 00:00:00 Outpatient Shen Whipple [facility] [id number] [facility] 2022-05-20 00:00:00 2022-05-20 00:00:00 Tyron Dotson MD: [address] [place] [address] , Ph. [phone] [facility] [place] [facility] [id number] [facility] 2022-05-12 14:00:00 2022-05-12 14:57:25 Outpatient JASWINDER HATCH [facility] [id number] [facility] 2022-05-12 14:00:00 2022-05-12 14:57:25 Office Visit Jaswinder Ha [facility]ILL[facility] 1..840.114 350.1.13.10 4.2.7.2.686 [id number] [facility] 2022-04-08 00:00:00 2022-04-08 00:00:00 Outpatient Shen Whipple [facility] [id number] [facility] 2022-04-05 00:00:00 2022-04-05 00:00:00 Orders Only Doctor Unassigned, [place] [facility] 1.2.840.114 350.1.13.10 4.2.7.2.686 [id number] [facility] 2022-04-01 00:00:00 2022-04-01 00:00:00 Outpatient Shen Whipple [facility] [id number] [facility] 2022-04-01 00:00:00 2022-04-01 00:00:00 Tyron Dotson MD: [address] [place] [phone] , Ph. [phone] [facility] [place] [facility] [place] [facility] [id number] [facility] 2022-03-21 15:30:00 2022-03-21 15:52:29 Office Visit Katherin Curtis [facility] 1.2.840.114 350.1.13.10 4.2.7.2.686 [id number] [facility] 2022-03-21 15:30:00 2022-03-21 15:52:29 Outpatient R KATHERIN [facility] [id number] [facility] 2022-03-21 15:30:00 2022-03-21 15:30:00 Outpatient R KATHERIN [facility] [id number] [facility] 2022-03-21 00:00:00 2022-03-21 00:00:00 Telephone Jaswinder Ha [facility] [place] 1.2.840.114 350.1.13.10 4.2.7.2.686 [id number] [facility] 2022-03-08 00:00:00 2022-03-08 00:00:00 Telephone Jaswinder Ha [facility] 1.2.840.114 350.1.13.10 4.2.7.2.686 [id number] [facility] 2022-02-21 13:00:00 2022-02-21 13:00:00 Outpatient R KATHERIN [facility] [id number] [facility] 2022-02-21 13:00:00 2022-02-21 13:00:00 Outpatient R KATHERIN [facility] [id number] [facility] 2022-02-21 00:00:00 2022-02-21 00:00:00 Outpatient FOG_Dunn_Davian negron_ [facility] [id number] [facility] 2022-02-21 00:00:00 2022-02-21 00:00:00 Outpatient Tyron Dotson [facility] [id number] 2022-02-21 00:00:00 2022-02-21 00:00:00 Tyron Dotson MD: [address] [place] [address] , Ph. [phone] [place] [facility] [place] [facility] [id number] [facility] 2022-02-09 11:00:00 2022-02-09 12:22:57 Outpatient R JASWINDER HA [facility] [id number] [facility] 2022-02-09 11:00:00 2022-02-09 12:22:57 Office Visit Jaswinder Ha [facility] 1.0.114 350.1.13.10 4.2.7.2.686 [id number] [facility] 2022-02-09 00:00:00 2022-02-09 00:00:00 Orders Only Doctor Unassigned, [place] [facility] 1.840.114 350.1.13.10 4.2.7.2.686 [id number] [facility] 2022-01-26 00:00:00 2022-01-26 00:00:00 Telephone Katherin [facility] .0.114 350.1.13.10 4.2.7.2.686 [id number] [facility] 2022-01-25 00:00:00 2022-01-25 00:00:00 Refill Katherin [facility] 1.0.114 350.1.13.10 4.2.7.2.686 [id number] [facility] 2022-01-24 10:30:00 2022-01-24 10:30:00 Outpatient JASWINDER HATCH [facility] [id number] [facility] 2022-01-17 00:00:00 2022-01-17 00:00:00 Outpatient FOG_Viet Whipple AO AO [id number] [facility] 2022-01-17 00:00:00 2022-01-17 00:00:00 Outpatient Tyron Dotson AO [id number] 2022-01-17 00:00:00 2022-01-17 00:00:00 Tyron Dotson MD: [address] [place] [phone] , Ph. [phone] [facility] [place] [facility] [place] [id number] [facility] 2022-01-11 00:00:00 2022-01-11 00:00:00 Telephone Jaswinder Ha [facility] [place] 1.2.840.114 350.1.13.10 4.2.7.2.686 [id number] [facility] 2022-01-08 02:10:00 2022-01-08 02:10:00 Outpatient FOG_Viet Whipple AO [facility] [id number] [facility] 2022-01-03 11:53:00 2022-01-03 11:53:00 Outpatient FOG_Viet Whipple [facility] A[facility] [id number] [facility] 2022-01-03 00:00:00 2022-01-03 00:00:00 Tyron Dotson MD: [address] [place] [address] , Ph. [phone] [facility] [place] [facility] [place] [id number] [facility] 2022-01-03 00:00:00 2022-01-03 00:00:00 Outpatient Tyron Dotson [facility] A[facility] [id number] 2021-12-27 09:38:00 2021-12-27 11:09:00 Emergency Tyron Frances ESTEPHANIETO HCATO [id number] [facility] 2021-12-27 09:38:00 2021-12-27 11:09:00 Emergency Tyron Frances ESTEPHANIETO ANDI [id number] [facility] 2021-12-27 01:37:00 2021-12-27 01:37:00 Outpatient Shen Whipple [facility] AOS[facility] [id number] [facility] 2021-12-27 01:37:00 2021-12-27 01:37:00 Outpatient Shen Whipple [facility] AOS[facility] [id number] [facility] 2021-12-13 00:00:00 2021-12-13 00:00:00 Telephone Jaswinder Ha [facility] 1.2.840.114 350.1.13.10 4.2.7.2.686 [id number] [facility] 2021-09-20 13:00:00 2021-09-20 14:30:55 Outpatient JASWINDER HATCH [facility] [id number] [facility] 2021-09-20 13:00:00 2021-09-20 14:30:55 Office Visit Jaswinder Ha [facility] .2.840.114 350.1.13.10 4.2.7.2.686 [id number] [facility] 2021-09-20 13:00:00 2021-09-20 13:00:00 Outpatient JOSUE HATCHEN [facility] [id number] [facility] 2021-08-25 00:00:00 2021-08-25 00:00:00 Refill zinaima [facility] 1.840.114 350.1.13.10 4.2.7.2.686 [id number] [facility] 2021-08-17 14:30:00 2021-08-17 15:03:07 Office Visit zinaima [facility]ALTY [place] [facility] 1..114 350.1.13.10 4.2.7.2.686 [id number] [facility] 2021-08-17 14:30:00 2021-08-17 15:03:07 Outpatient Margie ZINAIMA [facility] [id number] [facility] 2021-08-17 14:30:00 2021-08-17 14:30:00 Outpatient Margie PANDEY [facility] [id number] [facility] 2021-08-17 00:00:00 2021-08-17 00:00:00 Orders Only Doctor Unassigned, [place] [facility] 1.840.114 350.1.13.10 4.2.7.2.686 [id number] [facility] 2021-06-21 13:30:00 2021-06-21 16:34:12 Office Visit Jaswinder Ha [facility] PAV[facility] 1..114 350.1.13.10 4.2.7.2.686 [id number] [facility] 2021-06-21 13:30:00 2021-06-21 16:34:12 Outpatient JASWINDER HATCH [facility] [id number] [facility] 2021-06-21 13:30:00 2021-06-21 13:30:00 Outpatient JASWINDER HATCH [facility] [id number] [facility] 2021-06-07 00:00:00 2021-06-07 00:00:00 Telephone Jaswinder Ha [facility]AV[facility] 1.84.114 350.1.13.10 4.2.7.2.686 [id number] [facility] 2021-05-31 14:56:12 2021-05-31 23:59:00 Outpatient SAMEER RAMIREZ HOW[facility] [id number] [facility] 2021-05-31 14:56:12 2021-05-31 23:59:00 [facility] Sameer Azar [facility] 1.840.114 350.1.13.10 4.2.7.2.686 [id number] [facility] 2021-05-27 10:15:00 2021-05-27 10:15:00 Outpatient JASWINDER HATCH [facility] [id number] [facility] 2021-05-27 09:51:49 2021-05-27 10:06:49 Manager Meeting Visit Pob, Adc Lab Jaswinder Serrato [facility] 1.840.114 350.1.13.10 4.2.7.2.686 [id number] [facility] 2021-05-27 00:00:00 2021-05-27 00:00:00 Orders Only Doctor Unassigned, [place] [facility] 1.84.114 350.1.13.10 4.2.7.2.686 [id number] [facility] 2021-05-25 13:40:00 2021-05-25 14:19:53 Outpatient SAMEER RAMIREZ [facility] [id number] [facility] 2021-05-25 13:12:58 2021-05-25 14:19:53 Office Visit Sameer Gray [facility] 1.2114 350.1.13.10 4.2.7.2.686 [id number] [facility] 2021-05-11 13:00:00 2021-05-11 13:46:33 Outpatient Margie PANDEY [facility] [id number] [facility] 2021-05-11 12:48:18 2021-05-11 13:46:33 Office Visit Katherin [facility] 1.114 350.1.13.10 4.2.7.2.686 [id number] [facility] 2021-05-11 13:00:00 2021-05-11 13:00:00 Outpatient Margie PANDEY [facility] [id number] [facility] 2021-04-29 00:00:00 2021-04-29 00:00:00 Orders Only Doctor Unassigned, [place] [facility] 1.2114 350.1.13.10 4.2.7.2.686 [id number] [facility] 2021-04-19 00:00:00 2021-04-19 00:00:00 Refill Jaswinder Ha [facility]AV[facility] 1.2.114 350.1.13.10 4.2.7.2.686 [id number] [facility] 2021-03-22 12:41:25 2021-03-22 14:21:16 Office Visit Jaswinder Ha [facility] 1.20.114 350.1.13.10 4.2.7.2.686 [id number] [facility] 2021-03-22 13:00:00 2021-03-22 13:00:00 Outpatient R JASWINDER HA [facility] [id number] [facility] 2021-03-08 00:00:00 2021-03-08 00:00:00 Curtis Patterson [facility] 1.2.840.114 350.1.13.10 4.2.7.2.686 [id number] [facility] 2021-02-11 15:30:00 2021-02-11 16:02:49 Outpatient R RUT MYLES [facility] [id number] [facility] 2020-12-16 13:00:00 2020-12-16 13:00:00 Outpatient R JASWINDER HA [facility] [id number] [facility] 2020-11-16 09:00:00 2020-11-16 09:00:00 Outpatient R [facility] [id number] [facility] 2020-11-06 15:46:17 2020-11-06 23:59:00 Outpatient CURTIS CAREY [facility] [id number] [facility] 2020-11-06 00:00:00 2020-11-06 00:00:00 Outpatient CURTIS CAREY [facility] [id number] [facility] 2020-10-25 00:00:00 2020-10-25 00:00:00 Outpatient CURTIS CAREY [facility] [id number] [facility] 2020-10-15 13:00:00 2020-10-15 13:00:00 Outpatient CURTIS CAREY [facility] [id number] [facility] 2020-09-26 13:00:00 2020-09-26 13:00:00 Outpatient R [facility] [id number] [facility] 2020-09-25 16:00:00 2020-09-25 16:00:00 Outpatient R [facility] [id number] [facility] 2020-09-14 13:30:00 2020-09-14 13:30:00 Outpatient JASWINDER HATCH [facility] [id number] [facility] 2020-07-31 13:00:00 2020-07-31 13:00:00 Outpatient Margie PANDEY [facility] [id number] [facility] 2020-07-22 14:12:24 2020-07-22 15:24:24 Office Visit Katherin [facility] 1.2.840.114 350.1.13.10 4.2.7.2.686 [id number] 2020-07-22 14:30:00 2020-07-22 14:30:00 Outpatient Margie PANDEY [facility] [id number] [facility] 2020-07-22 00:00:00 2020-07-22 00:00:00 Orders Only Doctor Unassigned, [place] [facility] 1.2.840.114 350.1.13.10 4.2.7.2.686 [id number] 2020-07-14 14:00:00 2020-07-14 14:00:00 Outpatient BHUMI MOFFETT [facility] [id number] [facility] 2020-06-15 14:30:00 2020-06-15 14:30:00 Outpatient JASWINDER HATCH [facility] [id number] [facility] 2020-05-27 18:00:00 2020-05-27 18:00:00 Outpatient GONZALEZ MICHAEL [facility] [id number] [facility] 2020-04-27 09:00:00 2020-04-27 09:00:00 Outpatient R [facility] [id number] [facility] 2020-04-03 15:00:00 2020-04-03 15:00:00 Outpatient ANUPAM ACEVEDO [facility] [id number] [facility] 2020-03-30 14:30:00 2020-03-30 14:30:00 Outpatient CURTIS CAREY [facility] [id number] [facility] 2020-03-11 13:00:00 2020-03-11 13:00:00 Outpatient JASWINDER HATCH [facility] [id number] [facility] 2020-01-08 00:00:00 2020-01-08 00:00:00 [facility] [id number] 2019-12-23 13:00:00 2019-12-23 13:00:00 Outpatient CURTIS CAREY [facility] [id number] [facility] 2019-12-11 13:30:00 2019-12-11 13:30:00 Outpatient Margie HAJASWINDER ORTEZ [facility] [id number] [facility] 2019-09-09 14:00:00 2019-09-09 14:00:00 Outpatient Margie HAJASWINDER ORTEZ [facility] [id number] [facility] Results Test Description Test Time Test Comments Results Result Co mments Source BASIC METABOLIC [id number] 05:58:00* Test Item Value Reference Range Interpretation Comme nts SODIUM (test code = NA) 146 mmol/L 136-145 H POTASSIUM (test code = K) 3.9 mmol/L 3.4-5.0 N CHLORIDE (test code = CL) 111 mmol/L 98-107 H CARBON DIOXIDE (test code = CO2) 25 mmol/L 21-32 N ANION GAP (test code = GAP) 10 GAP calc 4-15 N GLUCOSE (test code = GLU) 121 MG/DL 70-110 H BLOOD UREA NITROGEN (test code = BUN) 12 MG/DL 7-18 N GLOMERULAR FILTRATION RATE (test code = GFR) >=60 max estimate estGFR >60 The Glomerular Filtration Rate is a [...] <18 years. CREATININE (test code = CREAT) 0.6 MG/DL 0.6-1.0 N CALCIUM (test code = CA) 8.8 MG/DL 8.5-10.1 N CBC W/AUTO [id number] 05:23:00* Test Item Value Reference Range Interpretation Comme nts WHITE BLOOD CELL (test code = WBC) 5.9 K/mm3 3.5-11.0 N RED BLOOD CELL (test code = RBC) 3.72 M/mm3 4.70-6.10 L HEMOGLOBIN (test code = HGB) 12.0 G/DL 10.4-14.9 N HEMATOCRIT (test code = HCT) 36.6 % 31.5-44.1 N MEAN CELL VOLUME (test code = MCV) 98.4 Fl 84.5-98.6 N MEAN CELL HGB (test code = MCH) 32.3 pg 27.0-34.2 N MEAN CELL HGB CONCETRATION (test code = MCHC) 32.8 G/DL 31.5-34.0 N RED CELL DISTRIBUTION WIDTH (test code = RDW) 12.9 SD 11.5-14.5 N PLATELET COUNT (test code = PLT) 301 K/mm3 150-450 N MEAN PLATELET VOLUME (test c ode = MPV) 9.30 fL 7.0-10.5 N NEUTROPHIL % (test code = NT%) 61.3 % 40-76 N IMMATURE GRANULOCYTE % (test code = IG%) 0.3 % 0.0-5.0 N LYMPHOCYTE % (test code = LY%) 26.3 % 20.5-51.1 N MONOCYTE % (test code = MO%) 7.9 % 1.7-9.3 N EOSINOPHIL % (test code = EO%) 3.9 % 0.0-6.0 N BASOPHIL % (test code = BA%) 0.3 % 0.0-2.0 N NUCLEATED RBC % (test code = NRBC%) 0.0 /100WBC% 0.0-1.0 N NEUTROPHIL # (test code = NT#) 3.6 K/mm3 1.8-7.6 N IMMATURE GRANULOCYTE # (test code = IG#) 0.02 x10 3/uL 0.00-0.03 N LYMPHOCYTE # (test code = LY#) 1.6 K/mm3 0.6-3.2 N MONOCYTE # (test code = MO#) 0.5 K/mm3 0.3-1.1 N EOSINOPHIL # (test code = EO#) 0.2 K/mm3 0.0-0.4 N BASOPHIL # (test code = BA#) 0.0 K/mm3 0.0-0.1 N NUCLEATED RBC # (test code = NRBC#) 0.0 K/mm3 0.0-0.1 N COAGULATION TIME [id number] 08:28:00* Test Item Value Reference Range Interpretation Comme nts COAGULATION TIME ACTIVATED ( test code = ACT) 271 SEC 110-182 H COMPREHENSIVE METABOLIC [id number] 05:52:00* Test Item Value Reference Range Interpretation Comme nts SODIUM (test code = NA) 142 mmol/L 136-145 N POTASSIUM (test code = K) 4.6 mmol/L 3.4-5.0 N CHLORIDE (test code = CL) 107 mmol/L 98-107 N CARBON DIOXIDE (test code = CO2) 28 mmol/L 21-32 N ANION GAP (test code = GAP) 7 GAP calc 4-15 N GLUCOSE (test code = GLU) 112 MG/DL 70-110 H BLOOD UREA NITROGEN (test code = BUN) 25 MG/DL 7-18 H GLOMERULAR FILTRATION RATE (test code = GFR) >=60 max estimate estGFR >60 The Glomerular Filtration Rate is a [...] <18 years. CREATININE (test code = CREAT) 0.6 MG/DL 0.6-1.0 N TOTAL PROTEIN (test code = PROT) 6.7 G/DL 6.4-8.2 N ALBUMIN (test code = ALB) 3.6 G/DL 3.4-5.0 N GLOBULIN (test code = GLOB) 3.1 GM/dL ALBUMIN/GLOBULIN RATIO (test code = A/G) 1.2 RATIO 1.2-2.2 N CALCIUM (test code = CA) 9.4 MG/DL 8.5-10.1 N BILIRUBIN TOTAL (test code = BILT) 0.2 MG/DL 0.0-1.0 N SGOT/AST (test code = AST) 26 Unit/L 15-37 N SGPT/ALT (test code = ALT) 26 Unit/L 30-65 L ALKALINE PHOSPHATASE TOTAL (test code = ALKP) 86 Unit/L 50-136 N LIPID PROFILE (CORONARY RISK)2024-08-24 05:52:00* Test Item Value Reference Range Interpretation Comme nts TRIGLYCERIDES (test code = TRIG) 96 MG/DL 0-150 N CHOLESTEROL (test code = CHOL) 159 MG/DL 133-200 N CHOLESTEROL/HDL RATIO (test code = CHOLHDL) 2.61 RATIO See_Comment RISK ASSOC IATED WITH CHOL/HDL RATIOS: RISK MALE FEMALE1/2 AVERAGE 3.43 3.27AVERAGE 4.97 4.442X AVERAGE 9.55 7.053X AVERAGE 23.39 11.04 NOTE THAT THE REFERENCE VALUE IS RELATED TO RISK LEVELS ASRECOMMENDED BY THE [facility]. [Automated message] The system which generated this result transmitted reference range: 0-. The reference range was not used to interpret this result as normal/abnormal. HDL CHOLESTEROL (test code = HDL) 61 MG/DL See_Comment [Automated [employer]] The system which generated this result transmitted reference range: 60-. The reference range was not used to interpret this result as normal/abnormal. NON-HDL CHOLESTEROL (test code = NHDL) 98 mg/dL <130 LIPOPROTEIN LDL (test code = LDL) 77 MG/DL 0-129 N LDL/HDL (test code = LDL/HDL) 1.26 Ratio See_Comment L [Automated [employer]] The system which generated this result transmitted reference range: 1.48-3.22 Avg. The reference range was not used to interpret this result as normal/abnormal. [id number] 05:52:00* Test Item Value Reference Range Interpretation Comme nts MAGNESIUM (test code = MAG) 1.6 MG/DL 1.8-2.4 L PROTHROMBIN [id number] 05:39:00* Test Item Value Reference Range Interpretation Comme nts PT PATIENT (test code = PTP) 9.4 SECONDS 9.3-12.9 N INTERNATIONAL NORMAL RATIO (test code = INR) 0.85 INR Unit 0.8-1.2 N TARGET INR BY INDICATION Indication INR1. Prophylaxis of venous thrombosis 2.0 - 3.0 (orthopedic surgery), Prophylaxis of venous thrombosis (other than high-risk surgery), Treatment of Deep Vein Thrombosis/Pulmonary Embolism, Prevention of systemic embolism - Tissue heart valves, Acute Myocardial Infarction (to prevent systemic embolism), Valvular heart disease, Acute Myocardial Infarction (to prevent systemic embolism), Valvular heart disease, Atrial Fibrillation, [place]ileaflet mechanical valve in aortic position.2. Mechanical prosthetic valves (high risk), 2.5 - 3.5 Presence of Lupus Anticoagulant or Antiphospholipid Antibodies, Prevention of systemic embolism - Acute Myocardial Infarction (to prevent recurrent infarct). CBC W/AUTO [id number] 05:34:00* Test Item Value Reference Range Interpretation Comme nts WHITE BLOOD CELL (test code = WBC) 6.7 K/mm3 3.5-11.0 N RED BLOOD CELL (test code = RBC) 4.16 M/mm3 4.70-6.10 L HEMOGLOBIN (test code = HGB) 13.2 G/DL 10.4-14.9 N HEMATOCRIT (test code = HCT) 40.3 % 31.5-44.1 N MEAN CELL VOLUME (test code = MCV) 96.9 Fl 84.5-98.6 N MEAN CELL HGB (test code = MCH) 31.7 pg 27.0-34.2 N MEAN CELL HGB CONCETRATION (test code = MCHC) 32.8 G/DL 31.5-34.0 N RED CELL DISTRIBUTION WIDTH (test code = RDW) 12.7 SD 11.5-14.5 N PLATELET COUNT (test code = PLT) 326 K/mm3 150-450 N MEAN PLATELET VOLUME (test c ode = MPV) 9.30 fL 7.0-10.5 N NEUTROPHIL % (test code = NT%) 57.5 % 40-76 N IMMATURE GRANULOCYTE % (test code = IG%) 0.1 % 0.0-5.0 N LYMPHOCYTE % (test code = LY%) 29.1 % 20.5-51.1 N MONOCYTE % (test code = MO%) 8.5 % 1.7-9.3 N EOSINOPHIL % (test code = EO%) 4.5 % 0.0-6.0 N BASOPHIL % (test code = BA%) 0.3 % 0.0-2.0 N NUCLEATED RBC % (test code = NRBC%) 0.0 /100WBC% 0.0-1.0 N NEUTROPHIL # (test code = NT#) 3.9 K/mm3 1.8-7.6 N IMMATURE GRANULOCYTE # (test code = IG#) 0.01 x10 3/uL 0.00-0.03 N LYMPHOCYTE # (test code = LY#) 2.0 K/mm3 0.6-3.2 N MONOCYTE # (test code = MO#) 0.6 K/mm3 0.3-1.1 N EOSINOPHIL # (test code = EO#) 0.3 K/mm3 0.0-0.4 N BASOPHIL # (test code = BA#) 0.0 K/mm3 0.0-0.1 N NUCLEATED RBC # (test code = NRBC#) 0.0 K/mm3 0.0-0.1 N POCT Hemoglobin A1C [id number] 19:05:00* Test Item Value Reference Range Interpretation Comme [facility] POCT HBA1C (test code = 4548-4) 6.7 % 4-6 [facility] Hemoglobin A1C [id number] 20:36:00* Test Item Value Reference Range Interpretation Comme [facility] POCT HBA1C (test code = 4548-4) 7.6 % 4-6 A Lab Interpretation (test cod e = 41283-7) Abnormal [facility] Hemoglobin A1C [id number] 20:36:00* Test Item Value Reference Range Interpretation Comme [facility] POCT HBA1C (test code = 4548-4) 7.6 % 4-6 A Lab Interpretation (test cod e = 11947-6) Abnormal [facility] Hemoglobin A1C [id number] 20:36:00* Test Item Value Reference Range Interpretation Comme nts POCT HBA1C (test code = 4548-4) 7.6 % 4-6 A Lab Interpretation (test cod e = 65008-4) [facility] [id number] 17:27:15PROCEDURE:XR CHEST 2 VW ORDERING PHYSICIAN: JESUSITA [...] within normal limits. Status postreverse right shoulder arthroplasty.[facility] HEMOGLOBIN A1C [id number] 19:25:00* Test Item Value Reference Range Interpretation Comme [facility] POCT HBA1C (test code = 4548-4) 4.4 % 4-6 [facility] HEMOGLOBIN A1C [id number] 19:25:00* Test Item Value Reference Range Interpretation Comme nts POCT HBA1C (test code = 4548-4) 4.4 % 4-6 [facility] HEMOGLOBIN A1C [id number] 18:43:00* Test Item Value Reference Range Interpretation Comme nts POCT HBA1C (test code = 4548-4) 6.8 % 4-6 A Lab Interpretation (test cod e = 53088-7) Abnormal [facility] HEMOGLOBIN A1C [id number] 18:43:00* Test Item Value Reference Range Interpretation Comme nts POCT HBA1C (test code = 4548-4) 6.8 % 4-6 A Lab Interpretation (test cod e = 29764-8) Abnormal [facility] HEMOGLOBIN A1C [id number] 18:31:00* Test Item Value Reference Range Interpretation Comme nts POCT HBA1C (test code = 4548-4) 6.6 % 4-6 A Lab Interpretation (test cod e = 44561-5) [facility] [id number] 18:31:00* Test Item Value Reference Range Interpretation Comme nts POCT HBA1C (test code = 4548-4) 6.6 % 4-6 A Lab Interpretation (test cod e = 57449-8) [facility]normal [facility] 11:14:00* Test Item Value Reference Range Interpretation Comme nts GLUBED (test code = GLUBED) 233 mg/dL 60-125 H [id number] 11:00:00* Test Item Value Reference Range Interpretation Comme nts glubed (test code = glubed) 233 mg/dL 60-125 H performing lab: (test code = performing lab:) [facility] METABOLIC [id number] 06:30:00* Test Item Value Reference Range Interpretation [...] CA) 8.4 mg/dL 8.2-10.1 N CBC W/AUTO [id number] 06:06:00* Test Item Value Reference Range Interpretation [...] 0 % 0-0 N SPECIMEN COMMENT: POD #[id number] 05:30:00* Test Item Value Reference Range Interpretation Comme nts GLUBED (test code = GLUBED) 147 mg/dL 60-125 H [id number] 05:17:00* Test Item Value Reference Range Interpretation Comme nts glubed (test code = glubed) 147 mg/dL 60-125 H performing lab: (test code = performing lab:) [facility] 19:52:00* Test Item Value Reference Range Interpretation Comme nts GLUBED (test code = GLUBED) 292 mg/dL 60-125 H [id number] 19:39:00* Test Item Value Reference Range Interpretation Comme nts glubed (test code = glubed) 292 mg/dL 60-125 H performing lab: (test code = performing lab:) [facility] 18:08:00* Test Item Value Reference Range Interpretation Comme nts GLUBED (test code = GLUBED) 206 mg/dL 60-125 H [id number] 17:56:00* Test Item Value Reference Range Interpretation Comme nts glubed (test code = glubed) 206 mg/dL 60-125 H performing lab: (test code = performing lab:) [facility]- XR SHOULDER 1 V [id number] 16:00:00 [facility] 1955 Sex: F Patient Name: TALIB TRUONG Unit No: [id number] EXAMS: CPT CODE: [id number] XR SHOULDER 1V RT [address]4572 AP portable right shoulder COMMENT: The patient is status post reverse prosthesis placement which is articulating normally. at 1600 Reported and signed by: Yash Delgado MD CC: Maverick Pringle MD; Hany Cardona DO Technologist: Carmen Hilton(R) Transcribed D/ (1600) [facility] NAME: TALIB TRUONG [address] [facility] [place] PHYS: Hany Javed DO : 1955 AGE: 67 SEX: F [place] [address] LOC: Y.O20 A PHONE #: EXAM DATE: 08/22/2022 STATUS: ADM IN FAX #: [phone] RAD #: D/C DT PAGE 1 Signed Report Patient Name: TALIB TRUONG Unit No: [id number] EXAMS: CPT CODE: [id number] XR SHOULDER 1 V RT 69355 (Continued) Orig Print D/T: S: 08/22/2022 (1603) [facility] NAME: TALIB TRUONG [address] [place] [address] PHYS: Hany Javed DO : 1955 AGE: 67 SEX: F [place] [address] LOC: Y.O20 A PHONE #: [phone] EXAM DATE: 08/22/2022 STATUS: ADM IN FAX #: [phone] RAD #: D/C DT PAGE 2 Signed [id number] 09:42:00* Test Item Value Reference Range Interpretation Comme nts GLUBED (test code = GLUBED) 145 mg/dL 60-125 H [id number] 09:30:00* Test Item Value Reference Range Interpretation Comme nts glubed (test code = glubed) 145 mg/dL 60-125 H performing lab: (test code = performing lab:) [facility] HEMOGLOBIN A1C [id number] 19:15:00* Test Item Value Reference Range Interpretation Comme nts POCT HBA1C (test code = 4548-4) 7.0 % 4-6 A Lab Interpretation (test cod e = 52853-4) Abnormal [facility] HEMOGLOBIN A1C [id number] 19:15:00* Test Item Value Reference Range Interpretation Comme nts POCT HBA1C (test code = 4548-4) 7.0 % 4-6 A Lab Interpretation (test cod e = 62226-5) Abnormal [facility] CenterPROTHROMBIN [id number] 10:45:00* Test Item Value Reference Range Interpretation [...] on Heparin Drip? NOSPECIMEN COMMENT: 1THROMBOPLASTIN TIME [id number] 10:45:00* Test Item Value Reference Range Interpretation [...] performing lab: (test code = performing lab:) [facility] [id number] 10:15:00 * Test Item Value Reference Range Interpretation Comme nts PTT activated (test code = P TT activated) 21.1 secs 26.6-34.6 L performing lab: (test code = performing lab:) [facility]YCOSYLATED [facility]GLOBIN (HA1C)2022-08-10 20:53:00* Test Item Value Reference [...] fructosamineshould be considered for these patients.DONE AT: [facility] [address] [place] [address] GLYCOSYLATED HEMOGLOBIN (HA1C)2022-08-10 20:52:00* Test Item Value [...] be considered for these patients. COMPREHENSIVE METABOLIC [id number] 15:27:00* Test Item Value Reference Range Interpretation [...] ALKP) 81 U/L 46-116 N CBC W/AUTO [id number] 14:34:00* Test Item Value Reference Range Interpretation [...] N CBC W Auto Differential panel - [id number] 14:10:00* Test Item Value Reference Range Interpretation [...] 0.04-0.4 basophil # (test code = baso drois #) 0.02 K/mm3 0.02-0.10 manual diff required (test c ode = manual diff required) no manual diff nucleated red blood cell (te st code = nucleated red blood cell) 0 % 0-0 performing lab: (test code = performing lab:) [facility]Com[facility] 2000 panel - Serum or [id number] 14:10:00* Test Item Value Reference Range Interpretation [...] performing lab: (test code = performing lab:) [facility] hemoglobin (ha1c)2022-08-10 14:10:00* Test Item Value Reference Range Interpretation Comme nts Hemoglobin A1c/Hemoglobin.to maria dolores in Blood (test code = 4548-4) 6.9 % 4.8-5.9 H performing lab: (test code = performing lab:) [facility] HealthMethicillin resistant Staphylococcus aureus [Presence] in Specimen by Organism specific [id number] 14:10:00* Test Item Value Reference Range Interpretation Comme nts MRSA surveillance screen (te st code = MRSA surveillance screen) see below performing lab: (test code = performing lab:) [facility]ss[facility] PCR surveillance [id number] 14:10:00 * Test Item Value Reference Range Interpretation Comme nts mssa PCR surveillance screen (test code = mssa PCR surveillance screen) see below performing lab: (test code = performing lab:) [facility]- CT UP EXTREM W/O CONT [id number] 11:41:00 [facility] : 1955 Sex: F Patient Name: TALIB TRUONG Unit No: [id number] EXAMS: CPT CODE: [id number] CT UP EXTREM W/O CONT RT 00211EL OF THE RIGHT SHOULDER WITH SAGITTAL AND [...] with ACR practice standards and adherence to asphalt distributor tender's recommendations. Posttraumatic and degenerative changes are present as described. There is no evidence for rotator cuff atrophy. There is no evidence for an intra-articular loose body. at 1141 Reported and signed by: Yash Delgado MD CC: Maverick Pringle MD; Tyron Dotson MD Technologist: Moisés Walden,RT(R) CTDI: DLP: Trnscrpt: 08/10/2022 (1141) t.CATINARCassyJCL [facility] NAME: TALIB TRUONG [address] [facility] [address] PHYS: Maverick Echeverria MD : 1955 AGE: 67 SEX: [place] [address] LOC: Y.RAD PHONE #: [phone] EXAM DATE: 08/10/2022 STATUS: REG CLI FAX #: [phone] RAD #: D/C DT PAGE 1 Signed Report Patient Name: TALIB TRUONG Unit No: [id number] EXAMS: CPT CODE: [id number] CT UP EXTREM W/[place] [address] (Continued) Orig Print D/T: S: 08/10/2022 (1144) [facility] NAME: TALIB TRUONG [address] [facility] [place] PHYS: Maverick Echeverria MD : 1955 AGE: 67 SEX: F [place], [place] [address] LOC: Y.RAD PHONE #: [phone] EXAM DATE: 08/10/2022 STATUS: REG CLI FAX #: [phone] RAD #: D/C DT PAGE 2 Signed ReportPOCT HEMOGLOBIN A1C TEST 2022-05-12 19:09:00* Test Item Value Reference Range Interpretation Comme [facility] POCT HBA1C (test code = 4548-4) 6.9 % 4-6 A Lab Interpretation (test cod e = 37879-0) Abnormal [facility] [id number] 19:09:00* Test Item Value Reference Range Interpretation Comme nts POCT HBA1C (test code = 4548-4) 6.9 % 4-6 A Lab Interpretation (test cod e = 26511-6) Abnormal [facility]- XR HUMERUS 2 + V [id number] 07:06:00 [facility] : 1955 Sex: F Patient Name: TALIB TRUONG Unit No: [id number] EXAMS: CPT CODE: [id number] XR HUMERUS 2 + V [place] [address] Rightshoulder 2 views COMMENT: There is a comminuted fracture of the proximal humerus with an oblique humeral neck fracture with impaction and a greater tuberosity fracture. Degenerative change is noted in the glenohumeral joint. at 0706 Reported and signed by: Yash Delgado MD CC: Tyron Dotson MD Technologist: Kristen Gamboa RT.(R) Transcribed D/ (705) tUBALDO [facility] NAME: TALIB TRUONG [address] [place] [address] PHYS: Tyron Tiwari MD : 1955 AGE: 66 SEX: F [place] [address] LOC: KIANA PHONE #: [phone] EXAM DATE: 12/27/2021 STATUS: DEP ER FAX #: [phone] RAD #: D/C DT PAGE 1 Signed Report Patient Name: TALIB TRUONG Unit No: [id number] EXAMS: CPT CODE: [id number] XR HUMERUS 2 + V RT 15075 (Continued) Orig Print D/T: S: 12/28/2021 (0709) [facility] NAME: TALIB TRUONG [address] [place] [address] PHYS: Tyron Tiwari MD : 1955 AGE: 66 SEX: F [place] [address] LOC: KIANA PHONE #: [phone] EXAM DATE: 12/27/2021 STATUS: DEP ER FAX #: [phone] RAD #: D/C DT PAGE 2 Signed ReportANTI-NUCLEAR ANTIBODY [id number] 20:42:00 * Test Item Value Reference Range Interpretation Comme nts CLEOPATRA T,IFA (test code = 216) <1:80 A Lab Interpretation (test cod e = 77960-7) Abnormal [facility] CenterANTI-NUCLEAR ANTIBODY [id number] 16:08:00* Test Item Value Reference Range Interpretation Comme nts CLEOPATRA (test code = 218) Negative NEGATIVE= No con firmation required..EQUIVOCAL= A second sample should be sent..POSITIVE= Any CLEOPATRA 'Positive' by EIA will be confirmed by IFA and reportedseparately upon completion.. [facility] CenterHAND, 2 [id number] 18:51:00 *.*.*.*.*.*.*.*.*.*.*.*.*.*FINAL*.*.*.*.*.*.*.*.*.*.*.*.*.*.*HAND, 2 VIEWS-Right Side, HISTORY: 57 Y/O FEMALE ?BILATERAL HAND PAIN COMPARISON: None. FINDINGS: No fracture or dislocation is identified. ?The soft tissues are grosslyunremarkable. Mild degenerative changes are seen at the first carpomet acarpal jointsbilaterally in the form of joint space narrowing and subchondral sclerosis. HAND, 2 VIEWS-LEFT SIDE No fracture or dislocation is identified. ?The soft tissues are grosslyunremarkable. Mild degenerative changes are seen at the first carpometacarpal jointsbilaterally in the form of joint space narrowing and subchondral sclerosis.REMEDIOS HADLEY MD ?Personally interpreted by: AUSTEN CHEN TANNUS /Signed/ AUSTEN CHEN TANNUSUnHCA [facility] Notes Date/Time Note Provider Source 2024-08-25 09:53:00 [facility] ([facility]) Hospitalist Discharge Summary REPORT#:[id number] REPORT STATUS: Signed REPORT INITIALIZATION DATE:08/25/24 TIME:952 PATIENT: TALIB TRUONG UNIT #: [id number] ROOM/BED: [facility] : [birth year] AGE: 69 SEX: F ATTEND: Salazar Hollingsworth MD Cardiology ADM AUTHOR: Rodríguez Ewing MD REPT SERVICE DT/TIME: 08/25/24 0953 * ALL edits or amendments must be made on the electronic/computer document * General Information Problem List/A P: 1. CAD (coronary artery disease) Date of admission: Observation Start Date: 08/24/24 Date of admission: 08/24/24 Discharge date: 08/25/24 Admission diagnosis: CAD Post PCI observation Discharge diagnosis: CAD Post PCI observation Hospital course: The patient was admitted for above mentioned diagnosis and hospital course was as follows Free Text DxA P Notes Free text DxA P notes: Assessment S/p PCI x 2 ANN Plan Refer for observation Telemonitoring Med per SEP Cardiac diet Groin site check Repeat labs Cardiology cleared for DC stable at time of discharge educated about medication compliance and ASA Clop statin compliance Med Rec Med Rec Discharge meds: Continue taking these medications: HYDROCHLOROTHIAZIDE (HYDRODIURIL) 25 MG TAB 25 MILLIGRAM ORAL DAILY. DILTIAZEM (CARDIZEM) 120 MG TAB 120 MILLIGRAM ORAL DAILY. DEXLANSOPRAZOLE DR (DEXILANT) 60 MG CAP.DR.MP 60 MILLIGRAM ORAL DAILY. ALISKIREN (TEKTURNA) 150 MG TAB 150 MILLIGRAM ORAL DAILY. INSULIN DEGLUDEC (TRESIBA FLEXTOUCH U-100 (3mL)) 100 [...] 1 EACH TAB 1 EACH ORAL DAILY. CYANOCOBALAMIN (VITAMIN B-12) 1,000 MCG TAB 1,000 MICROGRAM ORAL DAILY. [TURMERIC] 1 CAPSULE ORAL DAILY. ASCORBIC ACID (VITAMIN C) 1,000 MG TAB 1,000 MILLIGRAM ORAL DAILY. [MILK THISTLE] 1,000 MG 1 CAPSULE ORAL DAILY. ASPIRIN EC (ECOTRIN) 81 MG TAB.EC 81 MILLIGRAM ORAL DAILY. CHOLECALCIFEROL (VITAMIN D3) (VITAMIN D3) 125 MCG (5,000 UNIT) TAB 5,000 UNITS ORAL DAILY. BISACODYL EC (DULCOLAX EC) 5 MG TAB.DR 5 MILLIGRAM ORAL TWICE DAILY. ONDANSETRON (ZOFRAN) 4 MG TAB 4 MILLIGRAM ORAL EVERY 8 HR NEEDED. as needed for NAUSEA/VOMITING IBANDRONATE (IBANDRONATE) 150 MG TAB 150 MILLIGRAM ORAL Q30D MAGNESIUM OXIDE (MAGNESIUM OXIDE) 250 MG TAB 250 MILLIGRAM ORAL DAILY. Objective Free Text Obj Notes Free Text Obj Notes: HEENT: Atraumatic CVS: S1-S2 audible Resp: NVB Abdomen: Soft nontender Neuro: AOx3 Discharge Instructions PCP Discharge to: Home/Self Care Additional Discharge Routines: PCP Follow-Up Diet: Cardiac Follow-up Appointments PCP follow-up: PCP: Salazar Hollingsworth MD Cardiology PCP follow up timeframe: In 1-2 weeks at 0956 RPT #: [id number] END OF REPORT [facility] 2024-08-25 05:07:00 [phone] [facility] [address] [place] [address] PATIENT NAME: TALIB TRUONG ADMIT DATE: 08/24/24 ACCOUNT NO: [id number] ROOM NO: OBS1 AGE: 69 REPORT TYPE: eELECTROCARDIOGRAM SEX: F ADMITTING PHYSICIAN: Rodríguez Ewing MD ATTENDING PHYSICIAN: Salazar Hollingsworth MD Order: [id number] Test Reason : chest pain Test Date/Time Stamp: MonAug 25 2024 05:07:53 Blood Pressure : / mmHG Vent. Rate : 092 BPM Atrial Rate : 092 BPM P-R Int : 124 ms QRS Dur : 092 ms QT Int : 384 ms P-R-T Axes : 046 054 061 degrees QTc Int : 474 ms Normal sinus rhythm Normal ECG When compared with ECG of 25-AUG-2024 05:06, No significant change was found Confirmed by SALAZAR HOLLINGSWORTH ([id number]) on 08/25/2024 8:14:37 AM Referred By: Salazar Hollingsworth Confirmed by:SALAZAR HOLLINGSWORTH at 0814 PATIENT NAME: TALIB TRUONG [facility] 2024-08-25 05:06:00 [phone] [facility] [address] [place] [address] PATIENT NAME: TALIB TRUONG ADMIT DATE: 08/24/24 ACCOUNT NO: [id number] ROOM NO: L.OBS1 AGE: 69 REPORT TYPE: eELECTROCARDIOGRAM SEX: F ADMITTING PHYSICIAN: Rodríguez Ewing MD ATTENDING PHYSICIAN: Salazar Hollingsworth MD Order: [id number] Test Reason : chest pain Test Date/Time Stamp: [place] Aug 25 2024 05:06:20 Blood Pressure : / mmHG Vent. Rate : 092 BPM Atrial Rate : 092 BPM P-R Int : 130 ms QRS Dur : 090 ms QT Int : 376 ms P-R-T Axes : 053 054 054 degrees QTc Int : 464 ms Normal sinus rhythm Normal ECG When compared with ECG of 24-AUG-2024 07:57, No significant change was found Confirmed by SALAZAR HOLLINGSWORTH ([id number]) on 08/25/2024 8:14:18 AM Referred By: Salazar Hollingsworth Confirmed by:SALAZAR HOLLINGSWORTH at 0814 PATIENT NAME: TALIB TRUONG [facility] 2024-08-24 11:54:00 [facility] ([facility]) Hospitalist History Physical REPORT#:[id number] REPORT STATUS: Signed REPORT INITIALIZATION DATE:08/24/24 TIME:115 PATIENT: TALIB TRUONG UNIT #: [id number] ROOM/BED: L.OBS1-1 : 53 AGE: 69 SEX: F ATTEND: Salazar Hollingsworth MD Cardiology ADM AUTHOR: Rodríguez Ewing MD REPT SERVICE DT/TIME: 08/24/24 1154 * ALL edits or amendments must be made on the electronic/computer document * History of Present Illness HPI Chief complaint: Post-Cath for observation PCP: PCP: Salazar Hollingsworth MD Cardiology HPI: 69y female PMHx CAD referred for Observation s/p PCI to 3. Drug-eluting stent of the proximal diagonal. Drug-eluting stent of the mid LAD. Drug-eluting stent of the proximal LAD History Social History Smoking status for patients 13 years old or older: Former Smoker Date last smoked: 07/10/05 Medication/Allergy-Vaccine Hx Allergies: Coded Allergies: vancomycin (Severe, ANAPHYLAXIS 12/27/21) Review of Systems Free Text ROS Notes Free Text ROS Notes: 10 systems reviewed negative the ones positive mentioned in the HPI above OBJECTIVE VS/I O: Vital Signs Date Temp Pulse Resp B/P B/P Mean Pulse Ox FiO2 08/24 36.4-36.9 72-99 11-18 111-139/52-63 91-99 Last Documented: Result Date Time Pulse Ox 96 08/24 1130 B/P 116/58 08/24 1130 O2 Delivery Room air 08/24 1130 Pulse 87 08/24 1130 Resp 11 08/24 1130 Temp 36.4 08/24 0730 Patient Weight and BMI Weight (kg): 68.000 BMI: 28.3 Medications: Active Meds + DC'd Last 24 Hrs Aspirin (ECOTRIN) 81 MG DAILY PO Clopidogrel Bisulfate (Plavix) 75 MG DAILY PO Atorvastatin Calcium (LIPITOR) 80 MG BEDTIME PO Aliskiren (TEKTURNA) 150 MG DAILY PO Ascorbic Acid (ASCORBIC ACID) 1,000 MG DAILY PO Bisacodyl (DULCOLAX) 5 MG BID PO Cholecalciferol (Vitamin D3) 5,000 UNITS DAILY PO (CKD) Diltiazem HCl (CARDIZEM CD) 120 MG DAILY PO Pantoprazole (PROTONIX) 40 MG DAILY PO Acetaminophen (TYLENOL) 650 MG Q4H PRN PRN PO Hydrocodone Bitart/Acetaminophen (NORCO 5/325) 1 TAB Q4H PRN PRN PO Nitroglycerin (NITROSTAT) 0.4 MG Q5M PRN PRN SL Ondansetron HCl (ZOFRAN) 4 MG Q4H PRN PRN IV Sodium Chloride (0.9% Sodium Chloride) 1,000 ML .Q10H IV Nitroglycerin/Dextrose (NITROGLYCERIN 200 MCG/ML DRIP) 250 ML .STK-MED ONE IV (DC) Heparin Sodium (Porcine) (HEPARIN 1,000 UNITS/NS 500 ML) 500 ML .STK-MED ONE IV (DC) Clopidogrel Bisulfate (PLAVIX) 0 .STK-MED ONE .ROUTE (DC) Iopamidol (ISOVUE-300) 0 .STK-MED ONE .ROUTE (DC) Adenosine (ADENOSCAN) 0 .STK-MED ONE IV (DC) Aspirin (ASPIRIN) 0 .STK-MED ONE .ROUTE (DC) Sodium Chloride (SODIUM CHLORIDE 0.9%) 0 .STK-MED ONE IV (DC) Magnesium Sulfate (MAGNESIUM SULFATE 2 G IN SWFI 50 ML) 50 ML ONCE ONE IV (DC) Heparin Sodium (Porcine) (HEPARIN 1,000 UNITS/NS 500 ML) 1,500 ML .STK-MED ONE IV (DC) Iopamidol (ISOVUE-300) 0 .STK-MED ONE .ROUTE (DC) Fentanyl Citrate (SUBLIMAZE) 0 .STK-MED ONE .ROUTE (DC) Heparin Sodium (Porcine) (HEPARIN SODIUM) 0 .STK-MED ONE .ROUTE (DC) Midazolam HCl (VERSED) 0 .STK-MED ONE .ROUTE (DC) Diazepam (VALIUM) 5 MG ONCALL PO (CKD) Diphenhydramine HCl (BENADRYL) 25 MG ONCALL PO (CKD) Free Text PE Notes Free Text PE Notes: HEENT: Atraumatic CVS: S1-S2 audible Resp: NVB Abdomen: Soft nontender Neuro: AOx3 Diagnosis, Assessment Plan Free Text A P: Assessment S/p PCI x 2 ANN Plan Refer for observation Telemonitoring Refer for observation Telemonitoring Med per MAR Cardiac diet Groin site check Repeat labs at 0956 [facility] #: [id number] END OF REPORT [facility] 2024-08-24 07:57:00 [phone] [facility] [address] [place] [address] PATIENT NAME: TALIB TRUONG ADMIT DATE: 08/24/24 ACCOUNT NO: [id number] ROOM NO: SAROJ AGE: 69 REPORT TYPE: eELECTROCARDIOGRAM SEX: F ADMITTING PHYSICIAN: Rodríguez Ewing MD ATTENDING PHYSICIAN: Salazar Hollingsworth MD Order: [id number] Test Reason : POST PCI Test Date/Time Stamp: MonAug 24 2024 07:57:43 Blood Pressure : / mmHG Vent. Rate : 082 BPM Atrial Rate : 082 BPM P-R Int : 142 ms QRS Dur : 092 ms QT Int : 406 ms P-R-T Axes : 061 057 062 degrees QTc Int : 474 ms Normal sinus rhythm Normal ECG When compared with ECG of 24-AUG-2024 05:33, No significant change was found Confirmed by SALAZAR HOLLINGSWORTH ([id number]) on 08/24/2024 11:58:48 AM Referred By: Salazar Hollingsworth Confirmed by:SALAZAR HOLLINGSWORTH at 1158 PATIENT NAME: TALIB TRUONG [facility] 2024-08-24 07:46:00 [phone] [facility] [address] [place] [address] PATIENT NAME: TALIB TRUONG ADMIT DATE: 08/24/24 ACCOUNT NO: [id number] ROOM NO: [facility] AGE: 69 REPORT TYPE: CARDIAC CATHETERIZATION REPORT SEX: F ADMITTING PHYSICIAN: Rodríguez Ewing MD ATTENDING PHYSICIAN: Salazar Hollingsworth MD PROCEDURE DATE: 08/24/2024 MATE FOURTH: Salazar Hollingsworth MD TITLE OF PROCEDURE: 1. Left heart catheterization. 2. IFR/FFR of the LAD and the diagonal. 3. Drug-eluting stent of the proximal diagonal. 4. Drug-eluting stent of the mid LAD. 5. Drug-eluting stent of the proximal LAD. 6. Sealing device. INDICATION FOR THE PROCEDURE: Dyspnea, CAD, ischemic cardiomyopathy. ESTIMATED BLOOD LOSS: Minimal. COMPLICATIONS: None. CONTRAST: 140 mL. ANESTHESIA: Conscious sedation with Versed and fentanyl, 1% lidocaine for local anesthesia. FINAL DIAGNOSES: Calcified vessels, two-vessel coronary artery disease, status post drug-eluting stent of 3 lesions, 1 in the diagonal and 2 in the left anterior descending artery, proximal and mid, sparing the origin of the diagonal. RECOMMENDATIONS: Observation overnight and aggressive medical therapy for the rest of her coronary artery disease. PROCEDURE IN DETAIL: After informed consent, the patient presented to the cardiac catheterization lab in a stable, fasting, non-sedated state. She was prepped and draped in the usual sterile fashion. After conscious sedation, 1% lidocaine was administered to the right common femoral artery area for local anesthesia. A 6-Romansh sheath was placed in the right common femoral artery using standard techniques under fluoroscopy. After heparinization, left coronary angiogram showed the calcified vessels, especially the lesions, which was a complex lesion, proximal LAD and then diseased after the origin of a large diagonal and a lesion in the diagonal itself. The lesions look like 80% proximal LAD, 75% LAD after the diagonal, and 80% focal lesion in the proximal diagonal. Circumflex is small with a decent size obtuse marginal with no angiographic PATIENT NAME: TALIB TRUONG disease. Right coronary angiogram showed a mid lesion around 50%, proximal 30% in this dominant vessel. Left ventricular angiogram showed ejection fraction around 50%, left ventricular end diastolic pressure of 15. No wall motion abnormalities or aortic valve gradient. Decided to check the pressures of the IFR and the FFR of the LAD and the diagonal lesions. The IFR on the diagonal was 0.77. The IFR on the LAD was 0.89. Both were significant, so I decided to intervene on the diagonal first. I could not cross with the stent, so I had to pre-dilate. The guide used initially was XB 3.5, then I had to switch to XB 3 and I pre-dilated with an Emerge 2.0 x 8 and then I placed the stent, it is [place] Synergy 2.25 x 8. That resulted in 0% residual and step up and step down. I had to use nitroglycerin intracoronary for spasm in the diagonal after the stent. Then, I stented the mid LAD lesion with an Xience 3.5 x 8. Then, I stented the proximal lesion sparing the origin of the diagonal with the Xience 4.0 x 8. Final angiographic results was angiographically great showing no residual disease and good opposition of all the stents and no disturbance in the flow of the diagonal or the septal, which is a large vessel. HEBER flow was 3 before and after in all 3 lesions. The right groin was sealed using AngioSeal. The patient tolerated the procedure well. She was transferred to the holding area for observation and then she will be admitted for observation overnight. There were no complications. Dictated By: Salazar Hollingsworth MD Date Dictated: 08/24/2024 07:46:58 Date Transcribed: 08/24/2024 09:13:21 ERIS/ISRA/PAVITHRA Receipt ID: [id number] Authenticated and Edited by Salazar Hollingsworth MD On 08/24/24 9:43:14 AM at 0945 PATIENT NAME: TALIB TRUONG [facility] 2024-08-24 05:33:00 [id number] [place] [id number] PATIENT NAME: TALIB TRUONG ADMIT DATE: 08/24/24 ACCOUNT NO: [id number] ROOM NO: AGE: 69 REPORT TYPE: eELECTROCARDIOGRAM SEX: F ADMITTING PHYSICIAN: ATTENDING PHYSICIAN: Salazar Hollingsworth MD Order: [id number] Test Reason : PREOP Test Date/Time Stamp: [facility] Aug 24 2024 05:33:47 Blood Pressure : / mmHG Vent. Rate : 099 BPM Atrial Rate : 099 BPM P-R Int : 124 ms QRS Dur : 086 ms QT Int : 372 ms P-R-T Axes : 044 055 069 degrees QTc Int : 477 ms Normal sinus rhythm Nonspecific ST abnormality Abnormal ECG When compared with ECG of 10-AUG-2022 15:32, No significant change was found Confirmed by SALAZAR HOLLINGSWORTH ([id number]) on 08/24/2024 6:02:35 AM Referred By: Salazar Hollingsworth Confirmed by:SALAZAR HOLLINGSWORTH at 0602 PATIENT NAME: TALIB TRUONG [facility] 2024-08-23 07:06:00 [id number] [address] PATIENT NAME: TALIB TRUONG ADMIT DATE: ACCOUNT NO: [id number] ROOM NO: AGE: 69 REPORT TYPE: HISTORY AND PHYSICAL SEX: F ADMITTING PHYSICIAN: ATTENDING PHYSICIAN: Salazar Hollingsworth MD Cardiology PATIENT NAME: TALIB TRUOGN ADMIT DATE:08/24/2024 ADMISSION DATE: 08/24/2024 06:00:00 ADMISSION HISTORY AND PHYSICAL MATE FOURTH: Salazar Hollingsworth MD REASON FOR ADMISSION: Dyspnea, coronary artery disease, ischemia, for cardiac catheterization and possible revascularization. HISTORY OF PRESENT ILLNESS: Talib is a 69-year-old patient who I have been following in my office since 2009. The patient presented recently with worsening dyspnea and arrhythmias on a Holter monitor with nonsustained ventricular tachycardia and supraventricular tachycardia. She has had on and off chest pains that appear to be atypical. She had nonobstructive coronary artery disease back in 2009. The patient's last carotid Doppler was 03/01 that showed less than 25% plaquing. Her echocardiogram in 02/2024 showed xlnb-wp-tmoljjet mitral regurgitation, ejection fraction 50 to 55%, hypertensive changes. Chemical nuclear stress test on 03/12 shows ejection fraction of 47%/48% with scarring and reversible ischemia. Monitoring as mentioned above showed ventricular tachycardia. The patient is here for a left heart catheterization and possible revascularization. There is no history of congestive heart failure, TIAs, or strokes. PAST MEDICAL HISTORY: Remarkable for the above in addition to hypertension, hyperlipidemia, history of PVCs, diabetes, osteoarthritis, acid reflux, insomnia, diabetic neuropathy, sciatica, vitamins B12 and D deficiency. PAST SURGICAL HISTORY: She has had tonsillectomy, hysterectomy, hernia repair, elbow repair, cholecystectomy, breast cysts, and right shoulder replaced. ALLERGIES: VANCOMYCIN CAUSES NUMBNESS. MEDICATIONS: Include aspirin 81 mg daily, hydrochlorothiazide 25 mg daily, atorvastatin 40 mg daily, Tekturna 150 mg daily, diltiazem 120 mg daily, methocarbamol 500 mg one and a half every 4 hours as needed, Tresiba 100 units as directed, diclofenac as directed, vitamins B12 and D and vitamin C and Dexilant 60 mg daily. The patient is currently not taking any beta-brenda therapy because she is intolerant to them. She has been on calcium brenda therapy for her tachycardia history. SOCIAL HISTORY: There is no history of any recent smoking. There is no history PATIENT NAME: TALIB TRUONG of street drug use. The patient drinks alcohol socially. FAMILY HISTORY: Positive for atherosclerotic cardiovascular disease. REVIEW OF SYSTEMS: Remarkable for the above in addition to insomnia, allergies, blurred vision, decreased sense of smell and hearing, snoring, irregular bowels, easy bruisability, anxiety, depression, numbness, neuropathy, poor coordination. The rest of the review of systems is enclosed. No acute GI or symptoms. No TIAs or strokes. PHYSICAL EXAMINATION: GENERAL: A pleasant elderly lady in no acute distress. VITAL SIGNS: Blood pressure 128/74, pulse 87 and regular, respiratory rate 16, unlabored. Temperature afebrile. HEENT: Head atraumatic, normocephalic. Eyes and ENT examination within normal for age. Missing teeth noted. NECK: Supple. No jugular venous distention, bruits, or lymphadenopathy. Normal upstroke. LUNGS: Decreased entry at the bases, otherwise clear and resonant. HEART: Regular rate and rhythm with II/ systolic ejection murmur at the left lower sternal border. No gallops. ABDOMEN: Soft. No tenderness. No organomegaly. No masses or bruits. EXTREMITIES: 2+ distal pulses. No edema, cyanosis, or clubbing. NEUROLOGIC: Alert and oriented x3. The examination appears to be nonfocal. LABORATORY DATA: Pending noninvasive cardiovascular workup enclosed. IMPRESSION: This is a 69-year-old lady with worsening symptoms, worsening ejection fraction, ventricular tachycardia, abnormal nuclear stress test, high likelihood of significant coronary artery disease. The patient is here for left heart catheterization and possible revascularization. RECOMMENDATION: Proceed with left heart catheterization and possible revascularization. The risks and benefits of the planned procedures were discussed in detail with the patient and available family members and the patient is willing to proceed. Dictated By: Salazar Hollingsworth MD Date Dictated: 08/23/2024 07:06:39 Date Transcribed: 08/23/2024 07:34:09 ERIS/ERIC Medel #: [id number] Receipt ID: [id number] Authenticated and Edited by Salazar Hollingsworth MD On 08/23/24 4:32:19 PM at 0436 PATIENT NAME: TALIB TRUONG [facility] 2024-06-05 15:15:00 Images from the original note were not included. Venipuncture collection performed by clean technique on the left anticubitus. Total of 1 attempts were made. Slight pressure and a bandage/dressing were applied to the site(s). The patient experienced no complications. The following specimens were processed according to instructions and sent to [facility] laboratories per lab order on 06/05/2024 : LT BLUE SST 2 RED LAV 1 PPT DK GREEN (LiHep) DK GREEN (SodH) WEST DK BLUE (K2) DK BLUE (S) ACD Blood Culture NIPT/NTD Patient has been identified by and name and was provided with cup, antiseptic towelette, and clean catch instructions. 1 urine specimen(s) sent. Unpreserved 1 Urine Culture Aptima tube Other urine [facility] 2024-01-24 16:11:21 STEVEN:11/16/2023 NOV:04/08/2024 Last note; Return in about 3 months (around 03/07/2024). [employer] requesting chart notes most recent , sent to them [phone]. Received confirmation of receipt. [facility] 2023-11-27 08:31:29 Talib Truong is a 68 year old female Patient calling to see if she can be seen this month after , patient states her transportation isnt working but does not want to wait 6 months. Please advise Elham Tripp [facility] 2023-10-12 10:00:10 Images from the original note were not included. STEVEN:08/21/2023 NOV:11/20/2023 Last note; Return in about 3 months (around 11/19/2023). Printed Last notes and faxed them to [facility] for patients diabetic supplies. Received confirmation on receipt Maia Torres RN [facility] 2023-08-30 10:32:24 NOV: 11/20/23 STEVEN: 05/18/23 Refill denied Rx sent in 08/21/23 by provider IE De La Rosa LVN [facility] 2023-07-16 11:57:00 Pt given printed and verbal [...] in no apparent distress, accompanied by son. [facility] 2023-07-16 09:45:00 Patient came in with complaints of cough, congestion, SOB since 2 weeks. IE Steele RN [facility] 2023-07-16 09:44:00 [facility] Emergency Department Note Patient Name: Talib [...] an [place] in the past. No leg swelling. Here [...] RELEASE 08/02/2013 Surgeon: Gunnar Knox DO; Location: [facility] EXTRACAPSULAR CATARACT EXTRACTION WITH INTRAOCULAR LENS IMPLANT [...] solution 10 mL albuterol 90 mcg/actuation inhaler brompheniramine-pseudoephedrine -DM (BROMFED DM) 2-30-10 mg/5 mL syrup First [...] around sick contacts. She has been using aimd-uhe-htnjecl cough and cold medications reports they are [...] needed for Wheezing or Shortness of Breath. BROMPHENIRAMINE-PSEUDOEPHEDRINE -DM (BROMFED DM) 2-30-10 MG/5 ML SYRUP [...] tablets by mouth at bedtime. BLOOD-GLUCOSE SENSOR (Jagex G6 SENSOR) IRMA Change sensor every 10 days BLOOD-GLUCOSE TRANSMITTER (DEXCOM G6 TRANSMITTER) IRMA Change every 90 days [...] signed by: Jesusita Owen DO 07/16/23 1145 [facility] 2023-07-12 16:37:39 Images from the original note were not included. Received order form from [employer], form has been signed by provider and faxed Received confirmation receipt ER PACKER Dottie De La Rosa LVN [facility] 2023-06-09 12:14:30 Received fax from [facility] requesting [facility] chart notes. Faxed [facility] chart notes from 05/18/23. Received confirmation receipt [facility] 2022-08-23 10:05:[address] [facility] ([facility]) Clinical Note REPORT#:[id number] REPORT STATUS: Signed DATE:08/23/22 TIME: 1005 PATIENT: TALIB TRUONG UNIT #: [id number] ROOM/BED: [facility]0-A : 53 AGE: 67 SEX: F ATTEND: Maverick Pringle MD ADM AUTHOR: Charlie Cueva MD * ALL edits or amendments must be made on the electronic/computer document * Clinical Note Note: [facility] Charlie Alvares M.D. (cell text [phone]) Assessment/Plan 1.) Anemia of acute blood loss- [...] 103 12 115/67 82.8 98 Room air 08/239 97.5 99 16 112/68 82.3 97 Nasal [...] (Auto) (20 - 40 %) 15.5 L [place] % (Auto) (3 - 10 %) 9.2 Eos % (Auto) (1 - 5 %) 0.3 L Baso % (Auto) (0.0 - 1.1 %) 0.2 Neut # (Auto) (2.00 - 7.50 K/mm3) 8.73 H Lymph # (Auto) (1.50 - 4.00 K/mm3) 1.81 [place] # (Auto) (0.2 - 0.8 K/mm3) 1.08 H Eos # (Auto) (0.04 - 0.4 K/mm3) 0.03 L Baso # (Auto) (0.02 - 0.10 K/mm3) 0.02 Add Manual Diff (MANUAL DIFF) NO Nucleated RBC % (0 - 0 %) 0 Charlie Alvares M.D. at 1210 RPT #:[id number] END OF REPORT [facility] 2022-08-23 07:59:[address] [facility] ([facility]) Pain Management Progress Note REPORT#:[id number] REPORT STATUS: Signed DATE:08/23/22 TIME: 758 PATIENT: TALIB TRUONG UNIT #: [id number] ROOM/BED: [address] : 53 AGE: 67 SEX: F ATTEND: Maverick Pringle MD ADM AUTHOR: Isi Cantor NP * ALL edits [...] Flow FiO2 Mean Ox Delivery Rate 08/23 723 36.1 103 12 115/67 82.8 98 Room air 08/23 0419 36.4 99 16 112/68 82.3 97 Nasal cannula 08/23 0335 97 Nasal 2 28 cannula 08/22 2233 36.8 102 14 112/70 83.6 98 Nasal [...] HAND Plan: BLOCK FOLLOW UP at 0801 RPT #:[id number] END OF REPORT [facility] 2022-08-23 06:50:[address] [facility] ([facility]) Discharge Summary REPORT#:[id number] REPORT STATUS: Signed DATE:08/23/22 TIME: 0650 PATIENT: TALIB TRUONG UNIT #: [id number] ROOM/BED: [address] : 53 AGE: 67 SEX: F [...] Physician: Maverick Pringle MD at 0650 RPT #:[id number] END OF REPORT [facility] 2022-08-23 06:47:00 [facility] Orthopaedic Progress Note REPORT#:[id number] REPORT STATUS: Signed DATE:08/23/22 TIME: 0647 PATIENT: TALIB TRUONG UNIT #: [id number] ROOM/BED: [address] : 53 AGE: 67 SEX: F [...] O2 Flow FiO2 Mean Ox Delivery Rate 08/239 36.4 99 16 112/68 82.3 97 Nasal cannula 08/23 0335 97 Nasal 2 28 cannula 08/224 36.8 102 14 112/70 83.6 98 Nasal cannula 08/22 2206 96 Nasal 2 28 cannula 08/22 2044 Nasal 2 cannula 08/22 1908 36.5 112 14 114/68 82.9 97 Nasal cannula Assessment/ Plan: R RSA - Post op day #1 MEDICINE ON CONSULT May discharge home when ready from orthopedic standpoint Follow up in office with physician in 2 week(s). Prescription for pain control in chart. at 0648 RPT #:[id number] END OF REPORT [facility] 2022-08-22 16:49:[address] [facility] ([facility]) Clinical Note REPORT#:[id number] REPORT STATUS: Signed DATE:08/22/22 TIME: 1648 PATIENT: TALIB TRUONG UNIT #: [id number] ROOM/BED: [address] : 53 AGE: 67 SEX: F ATTEND: Maverick Pringle MD ADM AUTHOR: Charlie Cueva MD * ALL edits or amendments must be made on the electronic/computer document * Clinical Note Note: [facility] Charlie Alvares MD (cell text [phone]) Internal Medicine Consult at request of : [...] disscussion - default code status while at [facility]. at 2136 RPT #:[id number] END OF REPORT [facility] 2022-08-22 14:56:00 [id number] [facility] [address] [place], [place] [address] PATIENT NAME: TALIB TRUONG ADMIT DATE: 08/22/22 ACCOUNT NO: [id number] ROOM NO: Y.O20 AGE: 67 REPORT TYPE: [...] arthroplasty for proximal humerus malunion, CPT code 83244, modifier 22. SURGEON: Maverick Pringle M.D. ENSEMBLE MEMBER: Dave Vick M.D. Brennan was medically necessary for the procedure and retraction of vital neurovascular structures throughout this case including protection of the axillary artery, nerve as well as structures of the brachial plexus through this complex reconstructive procedure with abnormal anatomy. Additionally, this is not a teaching hospital. There were no residents available for assistance. SECOND ENSEMBLE MEMBER: Hany Cardona D.O. ANESTHESIA: General plus interscalene [...] Dictated: 08/22/2022 14:56:18 Date Transcribed: 08/22/2022 16:52:28 MELA/HODA/MICHAEL Receipt ID: [id number] Authenticated by Maverick Pringle MD On 08/29/2022 06:40:02 AM at 0640 PATIENT NAME: TALIB TRUONG [facility] 2022-08-10 15:32:00 [id number] [place] [address] PATIENT NAME: TALIB TRUONG ADMIT DATE: ACCOUNT NO: [id number] ROOM NO: AGE: 67 REPORT TYPE: ELECTROCARDIOGRAM SEX: F ADMITTING PHYSICIAN: ATTENDING PHYSICIAN:Maverick Pringle MD Order: [id number] Test Reason : CLEARANCE FOR SURGERY HX. [...] ECGs available Confirmed by HALEY OSBORN MD ([id number]) on 08/12/2022 8:39:57 PM Referred By: Maverick Pringle Confirmed by:HALEY OSBORN MD PATIENT NAME: TALIB TRUONG [facility] 2021-12-28 12:57:00 [id number] [place] [address] PATIENT NAME: TALIB TRUONG ADMIT DATE: 12/27/21 ACCOUNT NO: [id number] ROOM NO: AGE: 66 REPORT TYPE: CONSULTATION [...] TRUONG Dictated By: Tyron Dotson MD WT: CON:MANISH/FELA/KHARI Conf#: [id number]#: [id number] Authenticated by Tyron Dotson MD On 12/31/2021 07:54:21 AM at 0754 PATIENT NAME: TALIB TRUONG [facility]
--- NOTE | 2024-09-06 13:53 | RAD REPORT ---
EXAMINATION: ONE VIEW CHEST XR CLINICAL INDICATION: ABDOMINAL DISTENTION TECHNIQUE: Frontal chest projection is submitted. Examination is limited by patient positioning and t echnique. COMPARISON: 03/18/2024 FINDINGS: Mild fibroemphysematous changes throughout the lungs. No focal infiltrate. The heart is upper limit o f normal in size. No displaced fractures identified. Reverse right shoulder arthroplasty.
[2024-09-06 13:54] LABS: Absolute Lymphocytes (CBC) 0.7 K/uL (0.7-4.9); Absolute Monocytes 0.3 K/uL (0.1-1.3); Absolute Neutrophil 7.1 K/uL (1.8-8.0); Basophils % 0.3 % (0-1.3); Hematocrit 38.3 % (36.0-45.0); Hemoglobin 13.2 g/dL (12.0-15.0); Lymphocytes % 9.2 % (15.3-44.8); MCH 33.1 pg (27.0-35.0); MCHC 34.4 g/dL (32.0-36.0); MPV 7.8 fL (7.6-11.3); Monocytes % 3.3 % (3.3-12.3); Neutrophils % 87.2 % (41.7-73.7); Nucleated Red Blood Cells % 0.1 % (0-0); Platelets 321 thou/uL (152-406); RBC Red Blood Cell Count 3.99 M/uL (3.86-4.86); Red Cell Distribution Width 13.6 % (12.1-15.2)
[2024-09-06] MEDS ORDERED: ONDANSETRON 4 MG/2 ML VIAL ONE (13:56)
[2024-09-06] MEDS ORDERED: NA CHLORIDE 0.9% 1,000 ML ONE ×2 (13:57→15:38)
[2024-09-06] MEDS ORDERED: FAMOTIDINE 20 MG/2 ML VIAL IV ONE (13:57)
[2024-09-06 14:01] LABS: PT Prothrombin Time 11.3 SECONDS (10.0-13.0); Protime INR 0.99
[2024-09-06 14:14] LABS: ALT/SGPT 20 U/L (13-56); AST/SGOT 12 U/L (15-37); Albumin 3.3 g/dL (3.4-5.0); Albumin/Globulin Ratio 0.9 (1.1-1.8); Alkaline Phosphatase 89 U/L (45-117); Anion Gap 11.8 mEq/L (5.0-15.0); BUN Blood Urea Nitrogen 17 mg/dL (7-18); Bicarbonate 24 mEq/L (21-32); Bilirubin Total 0.4 mg/dL (0.2-1.0); Globulin 3.6 g/dL (2.3-3.5); Glomerular Filtration Rate 94 ml/min (=/>90); Glucose Level 288 mg/dL (74-106); Lipase 21 U/L (13-75); Magnesium 1.7 mg/dL (1.6-2.4); NT PRO-BNP 189 pg/mL (<125); Potassium 3.8 mEq/L (3.5-5.1); Protein, Total 6.9 g/dL (6.4-8.2); Sodium Level 138 mEq/L (136-145)
[2024-09-06 14:16] LABS: Bilirubin Direct < 0.2 mg/dL (0-0.2); Bilirubin Indirect, Calculated 0.2 mg/dL (0.2-0.8)
[2024-09-06] MEDS ORDERED: MAGNESIUM SULFATE 1 gm IVPB 1 GM/100 ML BAG IV ONE (14:32)
[2024-09-06] MEDS ORDERED: PROMETHAZINE INJ 25 MG/ML AMP ONE ×2 (14:32→14:35)
--- NOTE | 2024-09-06 14:36 | EDPHYS ---
Physician Documentation [facility] Name: Herminia Truong Age: 69 yrs Sex: Female : 1955 Arrival Date: 09/06/2024 Time: 13:01 Bed 17 Private MD: ED Physician Jakob Alexandra HPI: 09/06 14:23 This 69 yrs old Female presents to ER via EMS with complaints of charly Nausea/Vomiting. 14:23 The patient presents to the emergency department with nausea, that is moderate, charly vomiting, diarrhea. Onset: The symptoms/episode began/occurred 2 day(s) ago. Possible causes: unknown. The symptoms are aggravated by nothing. food , The symptoms are alleviated by nothing. remaining still. Associated signs and symptoms: Pertinent positives: abdominal pain. Severity of symptoms: At their worst the symptoms were moderate in the emergency department the symptoms are unchanged. The patient has experienced similar episodes in the past, a few times. Historical: - Allergies: 13:14 Vancomycin; jl7 - PMHx: 13:14 broke right arm; Diabetes - IDDM; Hyperlipidemia; Hypertension; jl7 - PSHx: 13:14 Cholecystectomy; heart cath; hernia; hysterectomy; SC; right elbow replacement; jl7 - Immunization history:: Adult Immunizations unknown. - Infectious Disease History:: Denies. - Social history:: Smoking status: Patient denies any tobacco usage or history of. ROS: 14:24 Constitutional: Negative for fever, chills, and weight loss, Eyes: Negative for injury, charly pain, redness, and discharge, ENT: Negative for injury, pain, and discharge, Neck: Negative for injury, pain, and swelling, Respiratory: Negative for shortness of breath, cough, wheezing, and pleuritic chest pain, Back: Negative for injury and pain, : Negative for injury, bleeding, discharge, and swelling, MS/Extremity: Negative for injury and deformity, Skin: Negative for injury, rash, and discoloration, Neuro: Negative for headache, weakness, numbness, tingling, and seizure, Psych: Negative for depression, anxiety, suicide ideation, homicidal ideation, and hallucinations, Allergy/Immunology: Negative for hives, rash, and allergies, Endocrine: Negative for neck swelling, polydipsia, polyuria, polyphagia, and marked weight changes, Hematologic/Lymphatic: Negative for swollen nodes, abnormal bleeding, and unusual bruising, 14:24 Cardiovascular: Positive for palpitations, 14:24 Abdomen/GI: Positive for abdominal pain, nausea and vomiting, diarrhea, abdominal cramps, abdominal distension, Exam: 14:24 Constitutional: This is a well developed, well nourished patient who is awake, alert, charly and in no acute distress. Head/Face: Normocephalic, atraumatic. Eyes: Pupils equal round and reactive to light, extra-ocular motions intact. Lids and lashes normal. Conjunctiva and sclera are non-icteric and not injected. Cornea within normal limits. Periorbital areas with no swelling, redness, or edema. ENT: Nares patent. No nasal discharge, no septal abnormalities noted. Tympanic membranes are normal and external auditory canals are clear. Oropharynx with no redness, swelling, or masses, exudates, or evidence of obstruction, uvula midline. Mucous membranes moist. Neck: Trachea midline, no thyromegaly or masses palpated, and no cervical lymphadenopathy. Supple, full range of motion without nuchal rigidity, or vertebral point tenderness. No Meningismus. Chest/axilla: Normal chest wall appearance and motion. Nontender with no deformity. No lesions are appreciated. Respiratory: Lungs have equal breath sounds bilaterally, clear to auscultation and percussion. No rales, rhonchi or wheezes noted. No increased work of breathing, no retractions or nasal flaring. Abdomen/GI: Soft, non-tender, with normal bowel sounds. No distension or tympany. No guarding or rebound. No evidence of tenderness throughout. Back: No spinal tenderness. No costovertebral tenderness. Full range of motion. Female : Normal external genitalia. Skin: Warm, dry with normal turgor. Normal color with no rashes, no lesions, and no evidence of cellulitis. MS/ Extremity: Pulses equal, no cyanosis. Neurovascular intact. Full, normal range of motion., bilateral aka Neuro: Awake and alert, GCS 15, oriented to person, place, time, and situation. Cranial nerves II-XII grossly intact. Motor strength 5/5 in all extremities. Sensory grossly intact. Cerebellar exam normal. Normal gait. Psych: Awake, alert, with orientation to person, place and time. Behavior, mood, and affect are within normal limits. 14:24 Cardiovascular: Rate: tachycardic, actual rate is 111 bpm, Rhythm: regular, Pulses: Pulses are 4+ in bilateral radial, brachial, femoral, popliteal, posterior tibial and and dorsalis pedis arteries.. Heart sounds: normal, Edema: is not appreciated, JVD: is noted bilaterally, to 1 cm, 14:24 ECG was reviewed by the Attending Physician. Vital Signs: 13:09 BP 150 / 78; Pulse 111; Resp 19; Temp 98.2; Pulse Ox 99% ; Weight 68.04 kg; Height 5 jl7 ft. 1 in. ; Pain 8/10; 15:07 BP 116 / 55; Pulse 109; Resp 14 S; Pulse Ox 95% on R/A; Pain 0/10; aa5 18:27 BP 103 / 50; Pulse 101; Resp 14 S; Pulse Ox 85% on R/A; aa5 18:28 Pulse Ox 100% on 2 lpm NC; aa5 19:41 BP 110 / 49; Pulse 97; Resp 19; Temp 99.2; Pulse Ox 99% on 2 lpm NC; ay 13:09 Body Mass Index 28.34 (68.04 kg, 154.94 cm) jl7 13:09 Pain Scale: Adult jl7 15:07 Pain Scale: Adult aa5 MDM: 13:12 Medical Screening Exam initiated charly 14:36 Differential diagnosis: Nonspecific abd pain, gastritis, pancreatitis, diverticulitis, charly viral gastroenteritis, gastroenteritis. Data reviewed: vital signs, nurses notes, EMS record, lab test result(s), EKG, radiologic studies, CT scan, plain films. Consideration of Admission/Observation Escalation of care including admission/observation considered. I considered the following discharge prescriptions or medication management in the emergency department Medications were administered in the Emergency Department. See MAR. Independent interpretation of the following test(s) in the Emergency Department EKG: See my EKG interpretation above. Test considered but Not performed: Ultrasound no abd usg. Historians other than the Patient: Family Member: family well informed. Care significantly affected by the following chronic conditions: Diabetes, Hypertension, Obesity. Counseling: I had a detailed discussion with the patient and/or guardian regarding the historical points, exam findings, and any diagnostic results supporting the discharge/admit diagnosis, lab results, radiology results, the need for further work-up and treatment in the hospital. 09/06 13:13 Order name: Basic Metabolic Panel; Complete Time: 14:22 [facility] 09/06 13:13 Order name: CBC with Diff; Complete Time: 15:03 [facility] 09/06 13:13 Order name: LFT's; Complete Time: 14:22 [facility] 09/06 13:13 Order name: Magnesium; Complete Time: 14:22 [facility] 09/06 13:13 Order name: NT PRO-BNP; Complete Time: 14:22 [facility] 09/06 13:13 Order name: PT-INR; Complete Time: 14:22 [facility] 09/06 13:13 Order name: Troponin HS; Complete Time: 14:22 [facility] 09/06 13:13 Order name: Lipase; Complete Time: 14:22 [facility] 09/06 13:13 Order name: Urinalysis w/ reflexes; Complete Time: 17:40 [facility] 09/06 13:58 Order name: Manual Differential; Complete Time: 15:03 EDMS 09/06 15:21 Order name: Fecal Leukocyte Stain 09/06 15:21 Order name: Stool Culture 09/06 17:58 Order name: CDIFF 09/06 13:13 Order name: XRAY Chest (1 view); Complete Time: 14:22 [facility] 09/06 14:22 Order name: CT Abd/Pelvis - Without Contrast; Complete Time: 17:40 [facility] 09/06 13:13 Order name: Cardiac monitoring; Complete Time: 13:54 [facility] 09/06 13:13 Order name: EKG - Nurse/Tech; Complete Time: 13:54 [facility] 09/06 13:13 Order name: IV Saline Lock; Complete Time: 13:54 [facility] 09/06 13:13 Order name: Labs collected and sent; Complete Time: 13:54 [facility] 09/06 13:13 Order name: O2 Per Protocol; Complete Time: 13:55 [facility] 09/06 13:13 Order name: O2 Sat Monitoring; Complete Time: 13:55 [facility] 09/06 14:36 Order name: Misc. Order: get ua; Complete Time: 15:52 [facility] EC:24 Rate is 107 beats/min. Rhythm is regular. QRS [place] is Normal. DE interval is normal. charly QRS interval is normal. QT interval is normal. No Q waves. T waves are Normal. No ST changes noted. Clinical impression: Sinus tachycardia and No evidence of ischemia. Interpreted by me. Reviewed by me. Administered Medications: 14:00 Drug: NS 0.9% IV 1000 ml IV at 1000 ml once; to be given as a bolus over 60 minutes aa5 Route: IV; Rate: 1000 ml; Site: left wrist; 15:00 Follow up: IV Status: Completed infusion; IV Intake: 1000ml aa5 14:00 Drug: Famotidine IVP 20 mg IVP once; dilute with 10 mL 0.9% NaCl; give over 2 minutes aa5 Route: IVP; Site: left wrist; 14:33 Follow up: Response: No adverse reaction aa5 14:00 Drug: Ondansetron IVP 8 mg IVP once; over 2 minutes Route: IVP; Site: left wrist; aa5 14:33 Follow up: Response: No adverse reaction; Nausea unchanged aa5 14:40 Drug: Promethazine IVP 12.5 mg IVP once Route: IVP; Site: left wrist; aa5 15:00 Follow up: Response: No adverse reaction; Nausea is decreased aa5 14:51 Drug: Magnesium Sulfate IVPB 1 grams IVPB once over 1 hrs Route: IVPB; Infused Over: 1 aa5 hrs; Site: left wrist; 15:12 Follow up: Response: No adverse reaction aa5 15:52 Follow up: IV Status: Completed infusion aa5 15:52 Drug: NS 0.9% IV 1000 ml IV at 125 ml/hr Per protocol Route: IV; Rate: 125 ml/hr; Site: aa5 left wrist; 18:30 Follow up: IV Status: Infusion continued aa5 15:52 Drug: metroNIDAZOLE IVPB 500 mg 100 ml IVPB at 200 ml/hr once over 30 mins Volume: 100 aa5 ml; Route: IVPB; Rate: 200 ml/hr; Infused Over: 30 mins; Site: left wrist; 16:05 Follow up: Response: No adverse reaction aa5 16:22 Follow up: Response: No adverse reaction; IV Status: Completed infusion aa5 16:56 Drug: Ciprofloxacin IVPB 400 mg 200 ml IVPB once over 60 mins Volume: 200 ml; Route: iw IVPB; Infused Over: 60 mins; Site: left wrist; 17:56 Follow up: Response: No adverse reaction; IV Status: Completed infusion aa5 Disposition Summary: 09/06/24 14:35 Hospitalization Ordered Notes: Hospitalization Status: Inpatient Admission charly Provider: Osmani Winchester cha Location: Telemetry/MedSurg (Inpatient) charly Condition: Fair charly Problem: new charly Symptoms: have improved charly Bed/Room Type: Standard [facility] Room Assignment: 222(09/06/24 19:09) rv1 Diagnosis - Vomiting charly - Diarrhea, unspecified charly - Weakness charly - Dehydration charly - Bandemia charly - Left sided colitis - mid transverse to prox sgmoid charly Forms: - Medication Reconciliation Form charly - SBAR form charly - Leadership Thank You Letter charly Signatures: Dispatcher [employer] Jakob Bolanos MD MD cha Williams, Irene RN RN iw Shyla Byrne RN RN aa5 Katharine Gonzales RN RN jl7 Mary Eagle rv1 Corrections: (The following items were deleted from the chart) 14:35 charly rv1
--- NOTE | 2024-09-06 14:36 | ER ---
Nurse's Notes [facility] Name: Herminia Truong Age: 69 yrs Sex: Female : 1955 Arrival Date: 09/06/2024 Time: 13:01 Bed 17 Private MD: Diagnosis: Vomiting;Diarrhea, unspecified;Weakness;Dehydration;Bandemia;Left sided colitis-mid transverse to prox sgmoid Presentation: 09/06 13:09 Chief complaint: EMS states: N/V since yesterday, hx of cardiac stents x 3 two weeks jl7 ago, Sinus tach 113, 143/72, 98 T, 99% room air, BGL 291, gave 10mg Reglan IM in route. Coronavirus screen: At this time, the client does not indicate any symptoms associated with coronavirus-19. Ebola Screen: No symptoms or risks identified at this time. Initial Sepsis Screen: Does the patient meet any 2 criteria? HR > 90 bpm. No. Patient's initial sepsis screen is negative. Does the patient have a suspected source of infection? No. Patient's initial sepsis screen is negative. Risk Assessment: Do you want to hurt yourself or someone else? Patient reports no desire to harm self or others. Onset of symptoms was September 05, 2024. 13:09 Method Of Arrival: EMS: [facility] jl7 13:09 Acuity: VELVET 3 jl7 Triage Assessment: 13:14 General: Appears in no apparent distress. uncomfortable, ill, Behavior is cooperative, jl7 anxious. Pain: Complains of pain in abdomen diffusely Pain currently is 8 out of 10 on a pain scale. GI: Reports nausea, vomiting. Historical: - Allergies: 13:14 Vancomycin; jl7 - PMHx: 13:14 broke right arm; Diabetes - IDDM; Hyperlipidemia; Hypertension; jl7 - PSHx: 13:14 Cholecystectomy; heart cath; hernia; hysterectomy; SD; right elbow replacement; jl7 - Immunization history:: Adult Immunizations unknown. - Infectious Disease History:: Denies. - Social history:: Smoking status: Patient denies any tobacco usage or history of. Screenin:15 [facility] ED Fall Risk Assessment (Adult) History of falling in the last 3 months, aa5 including since admission No falls in past 3 months (0 pts) Confusion or Disorientation No (0 pts) Intoxicated or Sedated No (0 pts) Impaired Gait No (0 pts) Mobility Assist Device Used No (0 pt) Altered Elimination No (0 pt) Score/Fall Risk Level 0 - 2 = Low Risk Oriented to surroundings, Maintained a safe environment, Educated pt \\T\\ family on fall prevention, incl call for assistance when getting out of bed, Assessed \\T\\ reinforced patient's understanding of fall precautions. Abuse screen: Denies threats or abuse. Nutritional screening: No deficits noted. Tuberculosis screening: No symptoms or risk factors identified. Assessment: 13:15 General: Appears uncomfortable, Behavior is calm, cooperative. Pain: Denies pain. aa5 Neuro: Level of Consciousness is awake, alert, obeys commands, Oriented to person, place, time, situation. Cardiovascular: Heart tones S1 S2 present Rhythm is sinus tachycardia. Respiratory: Airway is patent Respiratory effort is even, unlabored, Respiratory pattern is regular, symmetrical. GI: Abdomen is round non-distended, Bowel sounds present X 4 quads. Abd is soft and non tender X 4 quads. Reports nausea, vomiting, Pt states "my stomach doesn't hurt, it's just the nausea". : No signs and/or symptoms were reported regarding the genitourinary system. EENT: No signs and/or symptoms were reported regarding the EENT system. Derm: Skin is pink, warm \\T\\ dry. Musculoskeletal: Range of motion: intact in all extremities. 14:33 Reassessment: Patient is alert, oriented x 3, equal unlabored respirations, skin aa5 warm/dry/pink. Pt reports no improvement of nausea, MD was notified. . 14:40 Reassessment: Pt now in CT . aa5 14:40 Reassessment: Requested Urine specimen from pt, pt states she is unable to void at this aa5 time, instructed to push call light when able to void. . 14:51 Reassessment: Patient is alert, oriented x 3, equal unlabored respirations, skin aa5 warm/dry/pink. Pt back from CT scan, reports nausea has improved. . 18:28 Reassessment: Pt currently sleeping, O2 noted to be 85% RA, O2 now administered via NC aa5 at 2 L, pt easy to awaken to verbal stimuli, pt states "I just hadn't slept all day". . 19:33 Reassessment: Pt alert and oriented, no distress noted, afebrile, on 2L NC, denies pain.ay Vital Signs: 13:09 BP 150 / 78; Pulse 111; Resp 19; Temp 98.2; Pulse Ox 99% ; Weight 68.04 kg; Height 5 jl7 ft. 1 in. ; Pain 8/10; 15:07 BP 116 / 55; Pulse 109; Resp 14 S; Pulse Ox 95% on R/A; Pain 0/10; aa5 18:27 BP 103 / 50; Pulse 101; Resp 14 S; Pulse Ox 85% on R/A; aa5 18:28 Pulse Ox 100% on 2 lpm NC; aa5 19:41 BP 110 / 49; Pulse 97; Resp 19; Temp 99.2; Pulse Ox 99% on 2 lpm NC; ay 13:09 Body Mass Index 28.34 (68.04 kg, 154.94 cm) jl7 13:09 Pain Scale: Adult jl7 15:07 Pain Scale: Adult aa5 ED Course: 13:09 Patient arrived in ED. jl7 13:12 Jakob Alexandra MD is Attending Physician. [facility] 13:14 Triage completed. jl7 13:14 Arm band placed on right wrist. jl7 13:15 Patient has correct armband on for positive identification. Placed in gown. Bed in low aa5 position. Call light in reach. Side rails up X2. Client placed on continuous cardiac and pulse oximetry monitoring. NIBP monitoring applied. equipment monitor phototypesetting on. Pulse ox on. NIBP on. 13:20 Missed attempt(s): 22 gauge in left forearm. Bleeding controlled, band aid applied, aa5 catheter tip intact. 13:25 Missed attempt(s): 20 gauge in right upper arm. Bleeding controlled, band aid applied, aa5 catheter tip intact. 13:45 Missed attempt(s): 22 gauge in right antecubital area. Bleeding controlled, band aid jl7 applied, catheter tip intact. 13:49 XRAY Chest (1 view) In Process Unspecified. EDMS 13:50 Initial lab(s) drawn, by me, sent to lab. Inserted saline lock: 22 gauge in left wrist, jl7 using aseptic technique. Blood collected. Flushed with 10 mL NS. 14:06 Shyla Byrne, JENNIFER is Primary Nurse. aa5 14:35 Osmani Winchester MD is Hospitalizing Provider. charly 14:44 CT Abd/Pelvis - Without Contrast In Process Unspecified. EDMS 15:06 No provider procedures requiring assistance completed. aa5 Administered Medications: 14:00 Drug: NS 0.9% IV 1000 ml IV at 1000 ml once; to be given as a bolus over 60 minutes aa5 Route: IV; Rate: 1000 ml; Site: left wrist; 15:00 Follow up: IV Status: Completed infusion; IV Intake: 1000ml aa5 14:00 Drug: Famotidine IVP 20 mg IVP once; dilute with 10 mL 0.9% NaCl; give over 2 minutes aa5 Route: IVP; Site: left wrist; 14:33 Follow up: Response: No adverse reaction aa5 14:00 Drug: Ondansetron IVP 8 mg IVP once; over 2 minutes Route: IVP; Site: left wrist; aa5 14:33 Follow up: Response: No adverse reaction; Nausea unchanged aa5 14:40 Drug: Promethazine IVP 12.5 mg IVP once Route: IVP; Site: left wrist; aa5 15:00 Follow up: Response: No adverse reaction; Nausea is decreased aa5 14:51 Drug: Magnesium Sulfate IVPB 1 grams IVPB once over 1 hrs Route: IVPB; Infused Over: 1 aa5 hrs; Site: left wrist; 15:12 Follow up: Response: No adverse reaction aa5 15:52 Follow up: IV Status: Completed infusion aa5 15:52 Drug: NS 0.9% IV 1000 ml IV at 125 ml/hr Per protocol Route: IV; Rate: 125 ml/hr; Site: aa5 left wrist; 18:30 Follow up: IV Status: Infusion continued aa5 15:52 Drug: metroNIDAZOLE IVPB 500 mg 100 ml IVPB at 200 ml/hr once over 30 mins Volume: 100 aa5 ml; Route: IVPB; Rate: 200 ml/hr; Infused Over: 30 mins; Site: left wrist; 16:05 Follow up: Response: No adverse reaction aa5 16:22 Follow up: Response: No adverse reaction; IV Status: Completed infusion aa5 16:56 Drug: Ciprofloxacin IVPB 400 mg 200 ml IVPB once over 60 mins Volume: 200 ml; Route: iw IVPB; Infused Over: 60 mins; Site: left wrist; 17:56 Follow up: Response: No adverse reaction; IV Status: Completed infusion aa5 Medication: 15:06 VIS not applicable for this client. aa5 Intake: 15:00 IV: 1000ml; Total: 1000ml. aa5 Outcome: 14:35 Decision to Hospitalize by Provider. charly 21:34 Admitted to Med/surg accompanied by nurse, ay 21:34 Condition: stable 21:34 Instructed on the need for admit, 21:35 Patient left the ED. ay Signatures: Dispatcher [employer] EDJakob Vazquez MD MD cha Williams, Irene, RN RN Shyla Delaney RN RN [email or web address] Katharine Gonzales RN RN jl7 Celeste Ramírez RN RN ay Corrections: (The following items were deleted from the chart) 15:08 15:07 Pulse 109bpm; Resp 14bpm; Spontaneous; Pulse Ox 95% RA; Pain 0/10, Adult; aa5 aa5 18:32 18:27 Pulse Ox 85% RA; aa5 aa5 19:46 19:33 Reassessment: Pt alert and oriented, no distress noted, VSS ay ay
[2024-09-06 14:37] LABS: Band Neutrophils 7 % (0-1); Differential Total Cells Count 100; Lymphocytes 14 % (15-42); Monocytes 2 % (0-10); Segmented Neutrophils 77 % (40-80)
[2024-09-06 14:38] LABS: Blood Morphology Comment NOT SEEN (NOT SEEN); Platelet Estimate ADEQ
--- NOTE | 2024-09-06 15:08 | RAD REPORT ---
EXAMINATION: CT ABDOMEN AND PELVIS WITHOUT CONTRAST CLINICAL INDICATION: Female, 69 years old.Abd pain;Nausea / vomiting TECHNIQUE: CT abdomen and pelvis was performed, without IV contrast, as per department protocol. Axia l, sagittal and coronal reconstructions were obtained. One or more of the following dose reduction techniques were used: Automated exposure control, adjustment of the mA and/or kV according to the pat ient size, and/or iterative reconstruction. Unless otherwise specified, incidental findings do not require dedicated imaging follow-up. [id number]. IV CONTRAST: Not administered. COMPARISON: 06/23/2024 FINDINGS: The lack of intravenous contrast limits the sensitivity of this exam for evaluation of solid visceral organs, vascular structures, and retroperitoneum. LOWER CHEST: No acute process identified.No significant pericardial effusion. Moderate circumferentia l thickening of the distal esophagus which could reflect esophagitis. Endoscopy could better evaluate. UPPER GI: Generalized gastric wall thickening. This could reflect gastritis. LIVER: No significant focal abnormality. GALLBLADDER/BILE DUCTS: Cholecystectomy. No significant biliary ductal dilatation.? PANCREAS: Atrophy, but otherwise unremarkable. SPLEEN: Multiple splenic calcifications. ADRENALS: Bilateral adrenal nodules. Largest is present on the left measuring 2.1 cm. They both have Hounsfield units consistent with adrenal adenomas. KIDNEYS AND URETERS: No hydronephrosis.Limited evaluation for renal lesions in the absence of IV cont rast. ABDOMINAL AORTA AND OTHER VESSELS: Moderate atherosclerotic changes without aortic aneurysm. PERITONEUM: No abnormal free fluid. No free air. LYMPH NODES: No pathologic lymphadenopathy. ABDOMINAL WALL: Small fat containing umbilical hernia. Prior ventral hernia repair. SMALL BOWEL/COLON : Wall thickening extending from about the mid transverse colon through the proximal sigmoid with slight stranding.Normal appendix. URINARY BLADDER: Underdistended but grossly unremarkable. REPRODUCTIVE ORGANS: Uterus surgically absent. No adnexal abnormality. MUSCULOSKELETAL: Inferior plate deformity at L2 is unchanged. Degenerative changes are present lumbar spine. Intramedullary yoon in the right femur. ADDITIONAL FINDINGS: None. IMPRESSION: Colitis suspected from the mid transverse colon to the proximal sigmoid. The gastric wall also appear s diffusely thickened which could reflect gastritis as well.
[2024-09-06] MEDS ORDERED: CIPROFLOXACIN 400mg IV 400 MG/200 ML BAG IV ONE (15:38)
[2024-09-06] MEDS ORDERED: METRONIDAZOLE 500mg IVPB 500 MG/100 ML BAG IV ONE (15:38)
[2024-09-06 16:05] LABS: Specific Gravity > 1.030 (1.005-1.030); Sqamous Epithelial <5 /HPF (None Seen); Urine Bacteria None Seen /HPF (<20); Urine Bilirubin NEGATIVE (Negative); Urine Blood Negative (Negative); Urine Clarity Clear (Clear); Urine Color Light-Yellow (Yellow); Urine Culture Reflex Order NOT NEEDED; Urine Glucose 4+ (Over) (Negative); Urine Ketones 4+ (Over) (Negative); Urine Microscopic Reflex YN ORDER UMIC; Urine Mucus Slight /HPF (None Seen); Urine Nitrite NEGATIVE (Negative); Urine Protein NEGATIVE (Negative); Urine RBC <5 /HPF (None Seen); Urine Urobilinogen Normal (Normal); Urine WBC <5 /HPF (<5)
[2024-09-06] MEDS ORDERED: ACETAMINOPHEN 500 MG TAB PO PRN (21:36)
[2024-09-06] MEDS ORDERED: MORPHINE 4 MG/ML SYR IV PRN (21:36)
[2024-09-06] MEDS ORDERED: ONDANSETRON 4 MG/2 ML VIAL IV PRN (21:36)
[2024-09-06] MEDS: NA CHLORIDE 0.9% 1,000 ML IV SCH (22:16)
[2024-09-06] MEDS: FAMOTIDINE 20 MG/2 ML VIAL IV SCH (22:16)
[2024-09-07] MEDS: METRONIDAZOLE 500mg IVPB 500 MG/100 ML BAG IV SCH (00:29)
[2024-09-07 04:39] LABS: Absolute Eosinophils 0.1 K/uL (0-0.5); Absolute Lymphocytes (CBC) 1.7 K/uL (0.7-4.9); Absolute Monocytes 0.6 K/uL (0.1-1.3); Absolute Neutrophil 3.5 K/uL (1.8-8.0); Basophils % 0.5 % (0-1.3); Eosinophils % 1.6 % (0-4.4); Hematocrit 32.7 % (36.0-45.0); Hemoglobin 11.4 g/dL (12.0-15.0); Lymphocytes % 28.8 % (15.3-44.8); MCH 33.6 pg (27.0-35.0); MCHC 34.8 g/dL (32.0-36.0); MCV 96.6 fL (80-100); MPV 7.9 fL (7.6-11.3); Monocytes % 9.9 % (3.3-12.3); Neutrophils % 59.2 % (41.7-73.7); Platelets 286 thou/uL (152-406); RBC Red Blood Cell Count 3.38 M/uL (3.86-4.86); Red Cell Distribution Width 13.5 % (12.1-15.2)
[2024-09-07 05:03] LABS: Anion Gap 7.1 mEq/L (5.0-15.0); Potassium 3.1 mEq/L (3.5-5.1)
[2024-09-07] MEDS: FLU (Fluarix Triv) TS24-25(6MOS UP)/PF 45 MCG/0.5 ML Syringe IM ONE (07:45)
[2024-09-07] MEDS: ASPIRIN EC 81 MG TAB PO SCH (09:00)
[2024-09-07] MEDS: Ciprofloxacin 200mg IV 200 MG/100 ML IV.SOLN. IV SCH (09:23)
[2024-09-07] MEDS: NA CHLORIDE 0.9% 1,000 ML IV SCH (09:23)
[2024-09-07] MEDS: PANTOPRAZOLE 40MG TABLET PO SCH (09:28)
[2024-09-07] MEDS: POTASSIUM CL SA 10 MEQ TAB PO ONE (14:34)
[2024-09-07] MEDS: INSULIN REGULAR (HUMAN) 100 UNIT/ML SQ SCH (19:18)
[2024-09-07] MEDS: ATORVASTATIN 40 MG TAB PO SCH (19:19)
--- NOTE | 2024-09-07 21:29 | HP ---
Date of Admission: 09/07/2024 Chief Complaint: Nausea, vomiting, diarrhea. History Of Present Illness: This is a 69-year-old pleasant female patient who was doing fine in her normal usual state of health until day before yesterday, which is 09/05/2024, she started to have some abdominal cramping associated with nausea, vomiting, and diarrhea. With this, she came into emergency room yesterday. After she was evaluated in the ER, she was admitted to the hospital. The patient denies any blood in stool. No hematemesis. After she arrived to the emergency room, she was evaluated, was started on empiric IV antibiotic, which was Cipro and metronidazole and she has not taken any antibiotics on outpatient basis, but stool specimen was ordered for C difficile, but patient has not had any bowel movement since her admission, so we have not been able to collect any stool specimen. This morning when I saw her, she was feeling much better than yesterday. Allergies: TO VANCOMYCIN THAT CAUSED HER TO STOP BREATHING. Medications: Vitamin B12 1 mg daily, multivitamin daily, montelukast 10 mg daily, magnesium oxide 250 mg daily, Humalog insulin and long-acting insulin degludec, which she takes 26 units subcutaneous injection daily. Hydrochlorothiazide 25 mg daily; docusate sodium 100 mg, takes 3 tablets daily; diltiazem 120 mg daily; Dexilant 60 mg daily; atorvastatin 40 mg, she takes 2 tablets daily at bedtime; aspirin 81 mg daily; and aliskiren 150 mg daily in morning. Review of Systems: GI: As mentioned above. All other systems reviewed and negative. Past Medical History: Significant for type 1 diabetes mellitus diagnosed in 1969, hypertension, hyperlipidemia, coronary artery disease, gastroesophageal reflux disease, uterine fibroid and cancer of cervix. Past Surgical History: Tonsillectomy, coronary artery angioplasty in 1990, umbilical hernia repair, cholecystectomy, hysterectomy, right shoulder surgery. Family History: Father , had heart disease. Mother , had Alzheimer's disease. Social History: Prior history of smoking, not at present time. Use of alcohol,occasional. Physical Examination: Vital Signs: Last temperature this morning 98.6, pulse 88, respiratory rate 16, blood pressure 108/51, oxygen saturation 97%. Height 5 feet 1 inch, weight 150 pounds. General: Awake, alert, oriented, not in distress. HEENT: Head atraumatic, normocephalic. Conjunctivae nonerythematous. Sclerae white. Mouth, no thrush or edema noted. Ears/Nose, no mass, lesion, discharge noted. Neck: Supple. No JVD, lymph nodes, bruit, thyromegaly noted. Lungs: Bilateral good equal air entry. Clear to auscultation. No rhonchi. No rales. Heart: Normal heart sounds, no murmur or gallop. Abdomen: Soft, bowel sounds normal. No guarding, rigidity, tenderness, mass, hepatosplenomegaly, distention, or bruit noted. Extremities: No leg edema. No calf tenderness. Skin: No rash, ulcer, cellulitis. Lymphatics: No lymph node enlargement in neck, supraclavicular, infraclavicular region. Neuro: No focal neurological deficit. Chest: Unremarkable. External Genitalia: Deferred. Rectal: Deferred. Laboratory Data: Yesterday, WBC 8.2, hemoglobin 13.2, platelets 321. Today, WBC 6, hemoglobin 11.4, platelets 286. For chemistry yesterday, sodium 138, potassium 3.8, chloride 106, bicarb 24, BUN 17, creatinine 0.66 glucose 288. Liver function tests are unremarkable. Initial troponin 11. Second troponin 17.2. Lipase 21. Today, sodium 143, potassium 3.1, chloride 114, bicarb 25, BUN 10, creatinine 0.51, glucose 125. Urinalysis is negative. Stool for C difficile is pending. Chest x-ray, no acute infiltrate. CAT scan shows bowel wall thickening starting from transverse colon all the way down to sigmoid colon with some surrounding stranding indicating collapse. There is some thickening of the gastric wall, which could be related to gastritis as well. Impression: 1. Colitis. 2. Acute gastritis. 3. Type 1 diabetes mellitus. 4. Coronary artery disease. 5. Hypertension. 6. Hyperlipidemia. 7. Gastroesophageal reflux disease. Plan: We will admit patient to hospital for further evaluation and management of this problem. The patient is appropriate for inpatient and is expected to spend 2 midnights in hospital. After her evaluation, she was admitted to the hospital from emergency room and was started on IV fluid and IV antibiotics. The patient has not had any vomiting or diarrhea since her admission, so we will reduce her IV fluid rate from 100 cc/hour down to 50 cc/hour. Diabetic diet was ordered and we will see how she tolerates that. For her diabetes, we will manage that with insulin sliding scale per order and monitor blood sugar. If necessary, adjust medication. For hypertension, we will not order any of her antihypertensive medication considering her blood pressure today and we will restart at appropriate time. For hyperlipidemia, we will continue her statin therapy per order. No need for further intervention. For coronary artery disease, no need for further intervention except monitoring. Stool will be collected if and when she has a bowel movement for C difficile. Otherwise, we will continue current empiric antibiotic. I will see her tomorrow for followup, possible discharge tomorrow to go home depending on her condition. Total time spent 80 minutes including review of last hospital admission record from 03/19/2024, review of last office visit record from 08/28/2024, communication with emergency room physician, review of emergency room visit record, and performing today's evaluation and management. JONN/INEZ Voice ID: [id number] MARY
[2024-09-07 22:39] VITALS: BMI 28.3
[2024-09-08 08:37] VITALS: BP 125/60; TEMP 98.4
[2024-09-08 08:47] VITALS: O2SAT 97
[2024-09-08] MEDS ORDERED: HOME MED 1 EA UNK (Dexlansoprazole [Dexilant] 30 MG Cap.Dr.Bp) PO SCH (09:00)
[2024-09-08] MEDS: ASPIRIN 81 MG CHEWABLE TABLET PO SCH (09:32)
--- NOTE | 2024-09-09 12:12 | EKG ---
Test Date: 2024-09-06 Test Time: 13:53:26 [employer] Preparer: TOM MEASUREMENT RESULTS: Intervals: Rate: 107 SC: 138 QRSD: 90 QT: 358 QTc: 477 [place]: P: 59 SC: 138 QRS: 53 T: 19 INTERPRETIVE STATEMENTS: Sinus tachycardia Otherwise normal ECG Compared to ECG 06/23/2024 19:39:25 Sinus rhythm no longer present Ventricular premature complex(es) no longer present Electronically Signed On 09-09-24 12:05:50 [employer] LAMINATOR by Bruce Rangel
== END 2024-09-08 13:24 | disposition home or self-care (01) | DRG 392 ==
LOC: ER 13:01 → ERHOLD 14:40 → 2ND 21:12
PROVIDERS: ADMIT Internal Medicine; ATTEND Internal Medicine
DX: K52.9 Noninfective gastroenteritis and colitis, unspecified (principal); K29.00 Acute gastritis without bleeding; E10.9 Type 1 diabetes mellitus without complications; E86.0 Dehydration; R53.1 Weakness; D72.825 Bandemia; I25.10 Atherosclerotic heart disease of native coronary artery without angina pectoris; I10 Essential (primary) hypertension; E78.5 Hyperlipidemia, unspecified; K21.9 Gastro-esophageal reflux disease without esophagitis; Z87.891 Personal history of nicotine dependence; Z88.1 Allergy status to other antibiotic agents; Z90.710 Acquired absence of both cervix and uterus; Z90.49 Acquired absence of other specified parts of digestive tract; Z82.49 Family history of ischemic heart disease and other diseases of the circulatory system
CPT/HCPCS: 36415; 71045; 74176; 80048; 80076; 81001; 82947; 83690; 83735; 83880; 84484; 85025; 85610; 93005; 96361; 96365; 96367; 96375; 99285; J0744; J1815; J2405; J2550; J3475; J7030